=== PATIENT | male | born 1950 | race Caucasian/White ===

== ENCOUNTER → 2019-04-09 08:46 | Outpatient (CLI) | payer MEDICARE, SELFPAY | PROVIDERS: Family Provider Family Medicine; PCP Family Medicine; Referring Provider Family Medicine; Visit Provider Family Medicine | DX: R00.1 Bradycardia, unspecified (principal) | CPT/HCPCS: 93225; 93226 ==

== ENCOUNTER 2019-04-27 14:59 | Observation (INO) | payer MEDICARE, SELFPAY ==
[2019-04-27 15:00] VITALS: BP 133/92; PULSE 61; RESP 20; TEMP 36.9; O2SAT 97; BMI 32.4
--- NOTE | 2019-04-27 15:40 | EKG12_ITS ---
Test Reason : CP ADMISSION Blood Pressure : / mmHG Vent. Rate : 048 BPM Atrial Rate : 048 BPM P-R Int : 172 ms QRS Dur : 090 ms QT Int : 496 ms P-R-T Axes : 060 -05 011 degrees QTc Int : 443 ms Sinus bradycardia Confirmed by FARZANA BRAXTON, JUSTIN ([id number]), business editor OCHOA DONNELLY ([id number] on 05/03/2019 1:21:53 PM Referred By: YULIYA Confirmed By:JUSTIN YANES MD
--- NOTE | 2019-04-27 15:42 | CT_ITS ---
STUDY: CTA NECK WITH CONTRAST REASON FOR EXAM: Male, 69 years old. Chest pain and dizziness RADIATION DOSAGE (If Supplied By Facility): CTDIvol = ( ) mGy, DLP = ( ) mGycm TECHNIQUE: CT angiography with multi-detector data acquisition was performed from the aortic arch to the skull base following intravenous administration of 100ml IV Isovue 300. MIP images were reconstructed from the axial data set. Post-processing of the angiographic images was performed, with multiplanar reformation and 3D reconstruction. Individualized dose optimization techniques were used for this CT. COMPARISON: None. FINDINGS: The aorta has a bovine branching pattern. Common trunk, right brachiocephalic, right subclavian, right common carotid, left common carotid and left subclavian arteries are patent bilaterally. Vertebral arteries arise bilaterally from the subclavian arteries, are codominant and patent in the cervical intraosseous segments. Bilateral internal and external carotid arteries are patent. There is mild burden of mixed, predominantly lipid rich, atherosclerosis is seen in the common carotids, internal carotids and aortic arch. Airway is patent. Soft tissues are unremarkable. Craniocervical junction and cervical spine are intact and aligned. There is moderate spondylotic thecal sac compression at C6-C7. There are upper mediastinal and pulmonary findings, refer to dedicated chest imaging report. CT/CTA Neck W/WO Contrast IMPRESSION: 1. Patent cervical arteries. 2. Mild burden of atherosclerosis. Electronically Signed: Lashell Venegas, at 17:38 EDT Tel , Service support ,
--- NOTE | 2019-04-27 15:42 | CT_ITS ---
STUDY: CTA OF THE BRAIN REASON FOR EXAM: Male, 69 years old. Chest pain dizziness RADIATION DOSAGE (If Supplied By Facility): CTDIvol = ( 26.11 ) mGy, DLP = ( 745.55 ) mGycm TECHNIQUE: CT angiography was performed with a multi-detector CT scanner. Data acquisition was obtained from the skull base through the vertex following intravenous administration of 100ml IV Isovue 300. MIP images were reconstructed from the axial data set. Post-processing of the angiographic images was performed, with multiplanar reformation and 3D reconstruction. Individualized dose optimization techniques were used for this CT. COMPARISON: None. FINDINGS: Brain parenchyma is normal. There is no acute intracranial hemorrhage, extra parenchymal fluid collections, hydrocephalus, focal lesions or herniation. The skull is intact. The angiographic part of the examination is mildly technically limited. There is extensive opacification of the venous structures with resulting overlaying of venous vessels on arteries. This makes detection of small aneurysms not possible. Bilateral base of skull carotids, bifurcations, anterior and middle cerebral arteries and proximal branches are patent. There are likely small/miniscule bilateral posterior communicating arteries which are not well seen. Posterior cerebral arteries, basilar artery and intradural vertebral arteries are patent. Dual venous sinuses are patent. Right transverse sinus is dominant, left is hypoplastic. Right jugular is dominant. CT/CTA Head W/WO Contrast IMPRESSION: 1. Normal CT head. 2. Patent [place] of [place] and proximal branches. 3. Patent dural venous sinuses. Electronically Signed: Lashell Venegas, at 17:19 EDT Tel , Service support ,
--- NOTE | 2019-04-27 15:42 | CT_ITS ---
STUDY: CTA CHEST REASON FOR EXAM: Male, 69 years old. Chest pain and dizziness RADIATION DOSAGE (If Supplied By Facility): CTDIvol = ( 18.03 ) mGy, DLP = ( 713.24 ) mGycm TECHNIQUE: The examination was performed with the intravenous administration of 100ml IV Isovue 300. Post-processing of the angiographic images was performed, with multiplanar reformation and 3D reconstruction. Individualized dose optimization techniques were used for this CT. COMPARISON: None. FINDINGS: There is no acute or chronic pulmonary embolism. Pulmonary artery is normal. Aorta is normal in caliber with mild burden of atherosclerotic plaque predominantly in the arch and descending portions. Cardiac chambers are normal in size and shape. Pericardium is normal. There is mild coronary artery disease. Central airways are patent. Pleural surfaces are intact. There is peripheral basilar predominant mixed pattern of pulmonary disease. There is left greater than right dense groundglass opacity bordering on consolidation with small alveolar grams, likely early honeycombing. There are thickened interstitial intralobular and interlobular markings peripherally. There is minor diffuse microcystic change. There is ill-defined mosaic attenuation of the lungs diffusely. However, this was not performed as a dedicated pulmonary protocol CT. There is an increased number of mediastinal and hilar lymph nodes most of which measure less than 1 cm. Limited upper abdominal images demonstrate left renal atrophy. Osseous structures are intact. CT/CTA Chest W/WO Contrast IMPRESSION: 1. No acute or chronic pulmonary embolism. 2. No acute thoracic vascular disease. 3. Mixed pulmonary pattern disease. The contribution of basal atelectasis is unclear as well as technical limitations. Recommend performing a dedicated pulmonary protocol high resolution CT with prone inspiratory and expiratory maneuvers after resolution of acute illness to remote possibility of superimposed confusing picture. Current differential diagnosis is early usual interstitial pneumonitis versus sarcoidosis. However, the same appearance can be simulated by a combination of atelectasis and mild pulmonary edema and therefore repeat scanning as described above after pulmonary consultation is recommended. Electronically Signed: Lashell Venegas, at 17:31 EDT Tel , Service support ,
--- NOTE | 2019-04-27 15:46 | ED.VISSUMM ---
- ER Visit Summary Date of Service: 04/27/19 Chief Complaint: Pain History of Present Illness: The patient is a 69 M with multiple symptoms that have been ongoing for weeks. He has had some work-up by Dr. Flores. He was recently referred to follow-up with cardiology for chest pain, pulmonology for abnormal findings on his chest CT, GI for dilated bile ducts and abdominal pain. He has had an MRI for dizziness which was unremarkable. He continues to have ongoing symptoms, and they are getting worse. He feels okay when he wakes up in the morning, but after about 2 hours he is extremely fatigued, short of breath, dizzy. Physical Examination: Afebrile and vital signs unremarkable. Head and neck atraumatic. Heart regular. Lungs clear. Abdomen soft. Extremities nontender with good strength and sensation. No edema. Skin appears normal. Test Results: EKG showed sinus rhythm at a rate of 62. Nonspecific ST and T wave changes. Laboratory studies and imaging are pending. Emergency Department Course and Treatment: I reviewed the patient's old records. He had an MRI of his brain on March 23 that showed age-appropriate changes. He had a CT of his chest with IV contrast that showed reticular opacities likely representing fibrotic changes as well as nodular opacities and mild enlargement of his mediastinal and right hilar lymph nodes. Patient had a CT of his abdomen with IV contrast that showed prominent intra-and extrahepatic biliary ducts without pancreatic mass or pancreatic ductal dilation or choledocholithiasis. I felt that he could benefit from imaging with CTA and will check imaging of his head, neck, and chest. Will repeat labs including troponin, CMP, CBC, lipase. Patient has not had any recent stress testing or evaluation of his heart. No history of coronary disease. He does take aspirin daily. No other blood thinners. Remote history of testicular cancer, but denies current malignancy. EKG showed sinus rhythm at a rate of 62. Nonspecific ST and T wave changes. CBC, CMP, lipase, troponin unremarkable. CTA head, neck, chest unremarkable except for previously noted pulmonary changes. Please see separate dictation. Patient has chest pain with shortness of breath and dizziness. He has a history of hypertension and hyperlipidemia. No recent cardiac evaluation. I contacted the hospitalist to admit for further care. Treatment Plan: As above Disposition: Admission Impression: 1. Chest pain 2. Dizziness This note was generated with [employer]etD[employer] software. It may contain incorrect words, spelling, and punctuation that were not noted in review of the chart prior to signing ED Disposition - Plan for ED Patient: Referrals: Archie Flores MD [Primary Care Provider] -
[2019-04-27] MEDS: 0.9% Normal Saline 1,000 ML 1000 ML IV (15:51)
[2019-04-27 15:55] LABS: Absolute Lymphocyte Count 2.22 X10^3/ul (0.83-4.51); Absolute Neutrophil Count 3.9 X10^3/uL (2.0-7.7); Basophil# 0.02 X10^3/uL; Basophil% 0.3 % (0-1); Eosinophil# 0.45 X10^3/uL; Eosinophils% 6.3 % (0-5); Hematocrit 42.1 % (40-54); Hemoglobin 13.9 g/dl (13.0-16.5); Lymphocyte # 2.22 X10^3/ul (4.0); Lymphocyte % 31.2 % (19-41); Mean Corpuscular Hgb 33.3 pg (27.0-32.0); Mean Corpuscular Volume 100.7 fL (80-94); Mean Platelet Vol. 11.1 fl (6.2-12.0); Monocyte# 0.56 X10^3/uL; Monocyte% 7.9 % (0-10); Neutrophil # 3.85 X10^3/uL (2.7-7.7); Neutrophil % 54.2 % (47-70); POSITIVE COUNT NO; POSITIVE DIFFERENTIAL NO; POSITIVE MORPHOLOGY NO; Platelet Count 187 K/mm3 (150-450); RBC Distribution Width CV 15.2 % (11.6-14.6); RBC Distribution Width SD 56.1 fl (35.1-43.9); Red Blood Count 4.18 M/mm3 (4.6-6.2); White Blood Count 7.1 K/mm3 (4.4-11.0)
[2019-04-27 16:00] VITALS: BP 139/76; PULSE 51; RESP 16; O2SAT 97
[2019-04-27 16:29] LABS: ALB/GLOB Ratio 0.9 RATIO (0.9-2.4); AST(SGOT) 16 U/L (15-37); Alanine Aminotransfer ALT/SGPT 19 U/L (16-61); Albumin, Serum 3.4 g/dL (3.2-5.0); Alkaline Phosphatase 121 U/L (45-117); Anion Gap 9 (5-15); BUN 17 mg/dL (7-18); BUN/Creat Ratio 10.4 RATIO (10-20); Calcium,Total 8.8 mg/dL (8.5-10.1); Chloride 103 mmol/L (98-107); Creatinine, Serum 1.63 mg/dL (0.70-1.30); EST Glomerular Filtration Rate 45 mL/min (>60); Est Glom Filt Rate - Afr Amer 55 mL/min (>60); Estimated Creatinine Clearance 42.55 ml/min; Globulin 3.9 g/dL (2.2-4.2); Glucose 157 mg/dL (74-106); Lipase 63 U/L (73-393); Potassium 3.9 mmol/L (3.5-5.1); Protein, Total 7.3 g/dL (6.4-8.2); Sodium Level 138 mmol/L (136-145)
--- NOTE | 2019-04-27 18:01 | HP.PCM_ITS ---
History of Present Illness Date of Admission: 04/27/19 Chief Complaint: Chest pain The patient is a 69 year old M with an extensive past medical history as listed. He was admitted through the ED on 04/27/2019 with a complaint of left-sided chest pain which have been going on for a few weeks but states that become more severe. He also complained of feeling tired and more lethargic and also voice loss which is being followed up by his primary care doctor. Concerning the chest pain, it was left-sided and said it was pressure-like and only relieved by nitro. He denied any fever or chills, palpitations or dizziness, diarrhea or vomiting. Review of systems is otherwise negative. He was recently started on Remeron by his PCP on account of weight loss and his states is eaten as improved and is also started to gain a bit of weight. He is never had any heart problems in the past. On admission vitals were significant for bradycardia which is chronic. Initial troponin was negative and EKG showed no acute ST changes and only showed bradycardia. He has been admitted to be managed for chest pain rule out ACS. [] Past Medical History Past Medical History (Chronic Problems): Chronic Problems (Last Updated 04/23/19 @ 15:27 by Brittnee Le) Overweight (BMI 25.0-29.9) (Chronic) CKD (chronic kidney disease) (Chronic) Chronic abdominal pain (Chronic) GERD (gastroesophageal reflux disease) (Chronic) Aneurysm of infrarenal abdominal aorta (Chronic) Testicular cancer (Chronic) Medical History: Medical History (Last Updated 04/23/19 @ 15:27 by Brittnee Le) Overweight (BMI 25.0-29.9) (Chronic) E66.3 CKD (chronic kidney disease) (Chronic) N18.9 Chronic abdominal pain (Chronic) R10.9, G89.29 GERD (gastroesophageal reflux disease) (Chronic) K21.9 Aneurysm of infrarenal abdominal aorta (Chronic) I71.4 Testicular cancer (Chronic) C62.90 Palpitations R00.2 Depressive disorder F32.9 Essential hypertension I10 Hiatal hernia K44.9 Trigeminal neuralgia G50.0 Acute kidney injury (Resolved) N17.9 Bradycardia (Resolved) R00.1 Cephalgia (Resolved) R51 Myocardial infarct, old I25.2 Symptomatic bradycardia (Resolved) R00.1 Allergies No Known Allergies Allergy (Verified 04/27/19 14:59) Home Medications: Ambulatory Orders Medication Instructions Recorded fluoxetine 20 mg capsule 20 mg PO BID cap 04/23/19 gabapentin 400 mg capsule 400 mg PO TID cap 04/23/19 melatonin 10 mg capsule 10 mg PO HS 04/23/19 nitroglycerin 0.4 mg sublingual 0.4 mg SUBLINGUAL Q5-15M PRN 04/23/19 tablet rivastigmine 4.6 mg/24 hour 1 patch TRANSDERMAL DAILY 04/23/19 transdermal patch Atorvastatin Calcium [Lipitor] 10 mg PO DAILY 04/27/19 Doxycycline Hyclate 100 mg PO BID 04/27/19 Lisinopril 20 mg PO DAILY 04/27/19 Mirtazapine 15 mg PO QHS 04/27/19 Surgical History: Surgical History (Last Updated 04/23/19 @ 15:34 by Brittnee Le) History of arthroscopic knee surgery Z98.890 History of corneal transplant 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 Psychiatric History: Anxiety, Depression Smoking Status: Current every day smoker Tobacco Use: Cigars Alcohol: Occasional Drugs: None - *Family History Maternal Family History: Family History (Last Updated 04/23/19 @ 15:35 by Brittnee Le) Father Cancer AAA (abdominal aortic aneurysm) Grandfather AAA (abdominal aortic aneurysm) Uncle AAA (abdominal aortic aneurysm) History Items: No pertinent history Paternal Family History: Family History (Last Updated 04/23/19 @ 15:35 by Brittnee Le) Father Cancer AAA (abdominal aortic aneurysm) Grandfather AAA (abdominal aortic aneurysm) Uncle AAA (abdominal aortic aneurysm) History Items: No pertinent history Review of Systems Constitutional: Reports: Weight Change - weight loss. Denies: Chills, Fever Eyes: Denies: Blurred vision HEENT: Denies: Head Aches, Sinus Congestion, Sinus Drainage Cardiovascular: Reports: Chest Pain. Denies: Chest Pressure, Chest Tightness, Edema, Heaviness, Light Headedness, Orthopnea, Palpitations, Paroxysmal Noc. D yspnea, Syncope Respiratory: Denies: Cough, Shortness of Breath, Shortness of breath at rest, Shortness of breath upon exertion, Sputum production Gastrointestinal: Denies: Abdominal Pain, Nausea, Vomiting Genitourinary: Denies: Dysuria Musculoskeletal: Denies: Joint Pain, Joint Tenderness Skin: Denies: Rash, Wounds Neurological: Denies: Numbness, Tingling, Focal weakness Psychiatric: Denies: Anxiety, Depression, Homicidal Ideations, Suicidal Ideations Hematologic/ Lymphatic: Denies: Easy Bruising, Easy Bleeding VTE Information - Inpt Only VTE Present on Admission: No VTE Pharm Prophylaxis ordered?: Yes - Physical Exam General: Alert, Oriented x3, Cooperative, No apparent distress, Lethargic HEENT: Atraumatic, PERRLA, EOMI, Normocephalic Neck: Supple, No JVD, Negative Carotid Bruits Lungs: Clear to auscultation, Normal air movement, No rhonchi, No wheeze, No rales Cardiovascular: Regular Rhythm, Normal S1, Normal S2, No murmurs, Bradycardic Abdomen: Bowel Sounds Present, Soft, Non Tender, Non-Distended, No Hepato- splenomegaly Extremities: No clubbing, No cyanosis, No edema, Capillary Refill Less than 3 Seconds Skin: No rashes, No breakdown Musculoskeletal: No Tenderness to Palpation of Joints or Extremities Lymphatic: No Cervical, Supraclavicular, or Inguinal Adenopathy Neurological: Cranial nerves II-XII grossly intact, Neuro grossly intact, Motor Exam 5/5 strength throughout Psych/Mental Status: Normal Affect, Appropriate, Alert and oriented to time, place, person, mood and affect Vital Signs Temp Pulse Resp BP Pulse Ox 98.4 F 51 L 16 139/76 H 97 04/27/19 15:00 04/27/19 16:00 04/27/19 16:00 04/27/19 16:00 04/27/19 16:00 Oxygen Delivery Method Room Air Weight: 213 lb 2.992 oz Body Mass Index (BMI) 32.4 Laboratory Tests Past 24 Hrs 04/27/19 04/27/19 15:00 15:00 WBC 7.1 RBC 4.18 L Hgb 13.9 Hct 42.1 MCV 100.7 H MCH 33.3 H MCHC 33.0 RDW 15.2 H RDW Differential 56.1 H Plt Count 187 MPV 11.1 Immature Gran % (Auto) 0.100 Neut % (Auto) 54.2 Lymph % (Auto) 31.2 [place] % (Auto) 7.9 Eos % (Auto) 6.3 H Baso % (Auto) 0.3 Absolute Neuts (auto) 3.9 Absolute Lymphs (auto) 2.22 Total Counted Not Reportable Sodium 138 Potassium 3.9 Chloride 103 Carbon Dioxide 26.0 Anion Gap 9 BUN 17 Creatinine 1.63 H Estim Creat Clear Calc 42.55 Est GFR (MDRD) Af Amer 55 L Est GFR (MDRD) Non-Af 45 L BUN/Creatinine Ratio 10.4 Glucose 157 H Calcium 8.8 Total Bilirubin 0.50 AST 16 ALT 19 Alkaline Phosphatase 121 H Troponin I < 0.015 Total Protein 7.3 Albumin 3.4 Globulin 3.9 Albumin/Globulin Ratio 0.9 Lipase 63 L Diagnostic Data Chest CTA 04/27/19 15:42 IMPRESSION: 1. No acute or chronic pulmonary embolism. 2. No acute thoracic vascular disease. 3. Mixed pulmonary pattern disease. The contribution of basal atelectasis is unclear as well as technical limitations. Recommend performing a dedicated pulmonary protocol high resolution CT with prone inspiratory and expiratory maneuvers after resolution of acute illness to remote possibility of superimposed confusing picture. Current differential diagnosis is early usual interstitial pneumonitis versus sarcoidosis. However, the same appearance can be simulated by a combination of atelectasis and mild pulmonary edema and therefore repeat scanning as described above after pulmonary consultation is recommended. Electronically Signed: Lashell Venegas, at 17:31 EDT Tel , Service support , Head CTA 04/27/19 15:[address]: [address] head. 2. Patent [place] of [place] and proximal branches. 3. Patent dural venous sinuses. Electronically Signed: Lashell Venegas, at 17:19 EDT Tel , Service support , Neck CTA 04/27/19 15:42 IMPRESSION: 1. Patent cervical arteries. 2. Mild burden of atherosclerosis. Electronically Signed: Lashell Venegas, at 17:38 EDT Tel , Service support , Assessment/Plan All Active Problems (Last Updated 04/23/19 @ 15:27 by Brittnee Le) Acute kidney injury (Resolved) Bradycardia (Resolved) Cephalgia (Resolved) Symptomatic bradycardia (Resolved) [age]-year-old male admitted with complaint of chest pain as well as lethargy and weight loss. 1. Chest pain to rule out ACS * Admit to PCU with telemetry * Initial troponin was negative. Cycle troponin. * Sublingual nitroglycerin as needed. * Check lipid panel. * If troponins remain negative, till stress test tomorrow. * CT of the chest was negative for PE and head and neck CT were also unremarkable. * 2. CKD 3: * C r is 1.63. Baseline creatinine from 2013 and 2017 is around 1.5. * Has been down as low as 1.3 and 1.19. * Will monitor closely. * Hydrate gently with IV fluids. * 3. Bradycardia: Asymptomatic. Heart rate fluctuates between the high 40s and 50s. Not on any beta-antony. Will monitor. 4. Hypertension: Controlled. On lisinopril. 5. Hyperlipidemia: On statin. 6. Depression: On fluoxetine 9. Also started recently on mirtazapine on account of anorexia. 7. Dementia: On overstatement. DVT prophylaxis: Lovenox. Code Visit OBSV E&M: 65069 Initial observation care L3
[2019-04-27 18:10] VITALS: BMI 32.4
--- NOTE | 2019-04-27 18:48 | EKG12_ITS ---
Test Reason : CP Blood Pressure : / mmHG Vent. Rate : 062 BPM Atrial Rate : 062 BPM P-R Int : 162 ms QRS Dur : 088 ms QT Int : 436 ms P-R-T Axes : 034 -20 -21 degrees QTc Int : 442 ms Normal sinus rhythm Minimal voltage criteria for LVH, may be normal variant Nonspecific ST and T wave abnormality Abnormal ECG Confirmed by FARZANA BRAXTON, JUSTIN ([id number]), editor at large OCHOA DONNELLY ([id number]) on 05/01/2019 3:24:49 PM Referred By: BUTCH/GABRIEL Confirmed By:JUSTIN YANES MD
[2019-04-27 18:58] VITALS: BP 143/77; PULSE 47; RESP 18; TEMP 36.5; O2SAT 97
[2019-04-27 19:00] VITALS: PULSE 56
[2019-04-27 19:06] VITALS: BMI 25.4
[2019-04-27] MEDS: 0.9% Normal Saline 1,000 ML 75 ML IV (19:35)
[2019-04-27] MEDS: Mirtazapine 15 MG Tablet PO (21:32)
[2019-04-27] MEDS: Gabapentin 400 MG Capsule PO (21:32)
[2019-04-27] MEDS: FLUoxetine 20 MG Capsule PO (21:32)
[2019-04-27] MEDS: MELATONIN 10 MG TABLET PO (21:32)
[2019-04-27 23:00] VITALS: PULSE 56
[2019-04-28] VITALS (7 sets, daily range): BP systolic 120–131; BP diastolic 63–74; PULSE 49–58; RESP 15–18; TEMP 36.5–37; O2SAT 95–96
[2019-04-28] MEDS: Gabapentin 400 MG Capsule PO ×2 (05:23→12:18)
[2019-04-28] MEDS: Lisinopril 20 MG Tablet PO (05:24)
--- NOTE | 2019-04-28 05:55 | EKG12_ITS ---
Test Reason : AM EKG Blood Pressure : / mmHG Vent. Rate : 055 BPM Atrial Rate : 055 BPM P-R Int : 172 ms QRS Dur : 090 ms QT Int : 472 ms P-R-T Axes : 050 -08 010 degrees QTc Int : 451 ms Sinus bradycardia with sinus arrhythmia Otherwise normal ECG Confirmed by FARZANA BRAXTON, JUSTIN ([id number]), makeup editor OCHOA DONNELLY ([id number]) on 05/03/2019 1:14:39 PM Referred By: YULIYA Confirmed By:JUSTIN YANES MD
[2019-04-28 06:31] LABS: Absolute Lymphocyte Count 1.87 X10^3/ul (0.83-4.51); Absolute Neutrophil Count 5.6 X10^3/uL (2.0-7.7); Basophil# 0.02 X10^3/uL; Basophil% 0.2 % (0-1); Eosinophils% 5.8 % (0-5); Hematocrit 40.6 % (40-54); Hemoglobin 13.1 g/dl (13.0-16.5); Lymphocyte # 1.87 X10^3/ul (4.0); Lymphocyte % 21.7 % (19-41); Mean Corp Hgb Conc 32.3 g/gl (32-36); Mean Corpuscular Hgb 32.5 pg (27.0-32.0); Mean Corpuscular Volume 100.7 fL (80-94); Mean Platelet Vol. 11.4 fl (6.2-12.0); Monocyte# 0.64 X10^3/uL; Monocyte% 7.4 % (0-10); Neutrophil # 5.57 X10^3/uL (2.7-7.7); Neutrophil % 64.7 % (47-70); Platelet Count 168 K/mm3 (150-450); RBC Distribution Width CV 15.4 % (11.6-14.6); RBC Distribution Width SD 56.4 fl (35.1-43.9); Red Blood Count 4.03 M/mm3 (4.6-6.2); White Blood Count 8.6 K/mm3 (4.4-11.0)
[2019-04-28 06:35] LABS: POSITIVE COUNT NO; POSITIVE DIFFERENTIAL NO; POSITIVE MORPHOLOGY NO; Prothrombin Time (Protime)PT. 13.4 SECONDS (11.7-14.9)
[2019-04-28 06:36] LABS: Partial Thromboplast Time 31.3 Seconds (24.1-36.2)
[2019-04-28 06:57] LABS: Anion Gap 6 (5-15); BUN 17 mg/dL (7-18); BUN/Creat Ratio 13.7 RATIO (10-20); Calcium,Total 8.3 mg/dL (8.5-10.1); Chloride 108 mmol/L (98-107); Creatinine, Serum 1.24 mg/dL (0.70-1.30); EST Glomerular Filtration Rate 62 mL/min (>60); Est Glom Filt Rate - Afr Amer 75 mL/min (>60); Estimated Creatinine Clearance 55.93 ml/min; Glucose 96 mg/dL (74-106); Potassium 4.7 mmol/L (3.5-5.1); Sodium Level 141 mmol/L (136-145)
[2019-04-28] MEDS: Enoxaparin 40 MG/0.4 ML Syringe SC (12:17)
[2019-04-28] MEDS: FLUoxetine 20 MG Capsule PO (12:18)
--- NOTE | 2019-04-28 12:37 | STRESSREP ---
Stress Test Report Date: 04-28-19 Procedure: Pharmacologic stress nuclear imaging study Indications: Chest pain Consent: Per the patient Procedure: The patient underwent pharmacologic (Regadenoson) evaluation with a peak heart rate of 77 beats per minute (50 %predicted maximal heart rate) and a peak blood pressure of 124/68 mmHg. The baseline ECG demonstrated sinus bradycardia. The peak pharmacologic ECG demonstrated no obvious ECG changes. There were no cardiac dysrhythmias pretest, during pharmacologic infusion, or recovery. There was no complaint of chest discomfort during pharmacologic infusion or recovery. The examination was discontinued secondary to completion of protocol. Impression: 1. Pharmacologic (Regadenoson) evaluation 2. Peak pharmacologic ECG with no obvious ECG changes. 3. There were no cardiac dysrhythmias pretest, during pharmacologic infusion, or recovery. 4. Nuclear images pending Myocardial perfusion imaging study: Technique: The patient was injected with 11.9 millicuries of technetium 99m Cardiolite and subsequently rest SPECT Cardiolite nuclear imaging was obtained in the horizontal long, vertical long, and short axis views. The patient underwent pharmacologic (Regadenoson) evaluation with a peak heart rate of 77 beats per minute (50 % percent predicted maximal heart rate) and a peak blood pressure of 124/68 mmHg. The patient was injected with 35.7 millicuries of technetium 99m Cardiolite and subsequently stress SPECT Cardiolite nuclear imaging was obtained in the horizontal long, vertical long, and short axis views. A gated Cardiolite study at peak stress was obtained. Interpretation: Rest and stress SPECT Cardiolite nuclear imaging status post realignment, normalization, and attenuation correction demonstrate a small area of subtle diminished tracer uptake near the apical segments without significant change between rest and stress. There is end systolic thickening and brightening. The gated Cardiolite study demonstrates myocardial thickening and inward wall motion. The reported LVEF is 60 %. Impression: 1. Rest and stress SPECT current nuclear imaging demonstrate myocardial perfusion changes appearing compatible with the effects of physiologic apical thinning with no myocardial perfusion changes considered diagnostic for associated stress-induced myocardial ischemia. 2. The gated Cardiolite study reports an LVEF of 60 %. This note was generated with [employer] software. It may contain incorrect words, spelling, and punctuation that were not noted in checking the note before signing.
--- NOTE | 2019-04-28 13:08 | DCINST_ITS ---
You will use the following diet at home:: Regular Discharge Activity: Return to Normal Activity Allergies/Adverse Reactions: Allergies No Known Allergies Allergy (Verified 04/27/19 14:59) Medications to take at Discharge fluoxetine 20 mg capsule 20 mg PO BID cap 04/23/19 gabapentin 400 mg capsule 400 mg PO TID cap 04/23/19 melatonin 10 mg capsule 10 mg PO HS 04/23/19 nitroglycerin 0.4 mg sublingual tablet 0.4 mg SUBLINGUAL Q5-15M PRN 04/23/19 rivastigmine 4.6 mg/24 hour transdermal patch 1 patch TRANSDERMAL DAILY 04/23/19 Atorvastatin Calcium [Lipitor] 10 mg PO DAILY 04/27/19 Lisinopril 20 mg PO DAILY 04/27/19 Mirtazapine 15 mg PO QHS 04/27/19 Primary Care Physician: Archie Flores MD [Primary Care Provider] - Please follow up with your Primary Care Physician in: in 5-7 days Test Results: Test results from this visit will be discussed in further detail at your follow- up appointment, if applicable. Proposed Discharge Date: 04/28/19
--- NOTE | 2019-04-28 13:14 | DS.PCM_ITS ---
Discharge Date and Diagnosis - Problem List Patient Problems: Active and Suspected Problems (Last Updated 04/23/19 @ 15:27 by Brittnee Nolt) Chest pain (Acute) Date of Admission: 04/27/19 Date of Discharge: 04/28/19 - Primary Discharge Diagnosis Active and Suspected Problems (Last Updated 04/23/19 @ 15:27 by Brittnee Nolt) Chest pain (Acute) - Secondary Discharge Diagnosis Chronic Problems (Last Updated 04/23/19 @ 15:27 by Brittnee Nolt) Overweight (BMI 25.0-29.9) (Chronic) CKD (chronic kidney disease) (Chronic) Chronic abdominal pain (Chronic) GERD (gastroesophageal reflux disease) (Chronic) Aneurysm of infrarenal abdominal aorta (Chronic) Testicular cancer (Chronic) Hospital Course and Treatment Imaging Results: Clinical Impression(s) from Imaging Studies Chest CTA 04/27/19 15:42 IMPRESSION: 1. No acute or chronic pulmonary embolism. 2. No acute thoracic vascular disease. 3. Mixed pulmonary pattern disease. The contribution of basal atelectasis is unclear as well as technical limitations. Recommend performing a dedicated pulmonary protocol high resolution CT with prone inspiratory and expiratory maneuvers after resolution of acute illness to remote possibility of superimposed confusing picture. Current differential diagnosis is early usual interstitial pneumonitis versus sarcoidosis. However, the same appearance can be simulated by a combination of atelectasis and mild pulmonary edema and therefore repeat scanning as described above after pulmonary consultation is recommended. Electronically Signed: Lashell Venegas, at 17:31 EDT Tel , Service support , Head CTA 04/27/19 15:[address]: [address] head. 2. Patent tolowa dee-ni' of [place] and proximal branches. 3. Patent dural venous sinuses. Electronically Signed: Lashell Venegas, at 17:19 EDT Tel , Service support , Neck CTA 04/27/19 15:42 IMPRESSION: 1. Patent cervical arteries. 2. Mild burden of atherosclerosis. Electronically Signed: Lashell Venegas, at 17:38 EDT Tel , Service support , Operations: None Summary of Care Provided: The patient is a 69 year old M admitted with chest pain 1. Chest pain patient was placed on a monitored bed did rule out [place] with serial cardiac enzymes. Also underwent CT of the chest which was negative for PE subsequent underwent a nuclear stress test which is negative for stress-induced ischemia Acute renal failure secondary to dehydration from decreased oral intake managed with IV fluid kidney function return to normal limits 3. Bradycardia patient remains symptomatic. Did check patient's TSH prior to being discharged. TSH was within normal limits. 4. Hypertension-blood pressure controlled, home medications continued with dose adjustment as needed 5. Dyslipidemia-patient is on statin therapy, continued at home dose 6. Depression patient is on SSRI Patient Problems: Active and Suspected Problems (Last Updated 04/23/19 @ 15:27 by Brittnee Le) Chest pain (Acute) - Physical Exam General: Alert HEENT: Atraumatic Neck: Supple Neurological: Neuro grossly intact Psych/Mental Status: Normal Affect Vital Signs Temp Pulse Resp BP Pulse Ox 98.1 F 50 L 15 123/74 H 95 04/28/19 12:14 04/28/19 12:14 04/28/19 12:14 04/28/19 12:14 04/28/19 12:14 Oxygen Flow Rate (L/min) 2 Oxygen Delivery Method Room Air Weight: 76 kg Body Mass Index (BMI) 25.4 Intake and Output for Last 24 Hours 04/26/19 04/27/19 04/28/19 23:59 23:59 23:59 Intake Total 1532 / 1532 Balance 1532 / 1532 Laboratory Tests Past 24 Hrs 04/27/19 04/27/19 04/27/19 15:00 15:00 19:35 WBC 7.1 RBC 4.18 L Hgb 13.9 Hct 42.1 MCV 100.7 H MCH 33.3 H MCHC 33.0 RDW 15.2 H RDW Differential 56.1 H Plt Count 187 MPV 11.1 Immature Gran % (Auto) 0.100 Neut % (Auto) 54.2 Lymph % (Auto) 31.2 [place] % (Auto) 7.9 Eos % (Auto) 6.3 H Baso % (Auto) 0.3 Absolute Neuts (auto) 3.9 Absolute Lymphs (auto) 2.22 Total Counted Not Reportable PT INR APTT Sodium 138 Potassium 3.9 Chloride 103 Carbon Dioxide 26.0 Anion Gap 9 BUN 17 Creatinine 1.63 H Estim Creat Clear Calc 42.55 Est GFR (MDRD) Af Amer 55 L Est GFR (MDRD) Non-Af 45 L BUN/Creatinine Ratio 10.4 Glucose 157 H Calcium 8.8 Total Bilirubin 0.50 AST 16 ALT 19 Alkaline Phosphatase 121 H Troponin I < 0.015 < 0.015 Total Protein 7.3 Albumin 3.4 Globulin 3.9 Albumin/Globulin Ratio 0.9 Lipase 63 L 04/28/19 04/28/19 04/28/19 02:09 05:25 05:25 WBC 8.6 RBC 4.03 L Hgb 13.1 Hct 40.6 MCV 100.7 H MCH 32.5 H MCHC 32.3 RDW 15.4 H RDW Differential 56.4 H Plt Count 168 MPV 11.4 Immature Gran % (Auto) 0.200 Neut % (Auto) 64.7 Lymph % (Auto) 21.7 Carroll % (Auto) 7.4 Eos % (Auto) 5.8 H Baso % (Auto) 0.2 Absolute Neuts (auto) 5.6 Absolute Lymphs (auto) 1.87 Total Counted Not Reportable PT INR APTT Sodium 141 Potassium 4.7 Chloride 108 H Carbon Dioxide 27.0 Anion Gap 6 BUN 17 Creatinine 1.24 Estim Creat Clear Calc 55.93 Est GFR (MDRD) Af Amer 75 Est GFR (MDRD) Non-Af 62 BUN/Creatinine Ratio 13.7 Glucose 96 Calcium 8.3 L Total Bilirubin AST ALT Alkaline Phosphatase Troponin I < 0.015 Total Protein Albumin Globulin Albumin/Globulin Ratio Lipase 04/28/19 05:25 WBC RBC Hgb Hct MCV MCH MCHC RDW RDW Differential Plt Count MPV Immature Gran % (Auto) Neut % (Auto) Lymph % (Auto) Carroll % (Auto) Eos % (Auto) Baso % (Auto) Absolute Neuts (auto) Absolute Lymphs (auto) Total Counted PT 13.4 INR 1.0 APTT 31.3 Sodium Potassium Chloride Carbon Dioxide Anion Gap BUN Creatinine Estim Creat Clear Calc Est GFR (MDRD) Af Amer Est GFR (MDRD) Non-Af BUN/Creatinine Ratio Glucose Calcium Total Bilirubin AST ALT Alkaline Phosphatase Troponin I Total Protein Albumin Globulin Albumin/Globulin Ratio Lipase Discharge Diet: No Restrictions Discharge Activity: Return to Normal Activity Home Medications: Medications to take at Discharge fluoxetine 20 mg capsule 20 mg PO BID cap 04/23/19 gabapentin 400 mg capsule 400 mg PO TID cap 04/23/19 melatonin 10 mg capsule 10 mg PO HS 04/23/19 nitroglycerin 0.4 mg sublingual tablet 0.4 mg SUBLINGUAL Q5-15M PRN 04/23/19 rivastigmine 4.6 mg/24 hour transdermal patch 1 patch TRANSDERMAL DAILY 04/23/19 Atorvastatin Calcium [Lipitor] 10 mg PO DAILY 04/27/19 Lisinopril 20 mg PO DAILY 04/27/19 Mirtazapine 15 mg PO QHS 04/27/19 Primary Care Physician: Archie Flores MD [Primary Care Provider] - Please follow up with your Primary Care Physician in: in 5-7 days Disposition: Home Minutes spent on discharge:: 35 Patient Condition:: Stable Medical Necessity - Tobacco Use Smoking Status: Current every day smoker Tobacco Use: Cigars Meaningful Use Info Meaningful Use Diagnoses (Choose all that apply): None applicable Code Visit OBSV E&M: 74740 Observation care discharge
[2019-04-28 14:20] LABS: Thyroid Stim Hormone (TSH) 2.68 uIU/mL (0.358-3.74)
== END 2019-04-28 15:20 | disposition home or self-care (01) ==
LOC: ED 18:08 → PCU 18:17
PROVIDERS: Admitting Provider Student in an Organized Health Care Education/Training Program; Emergency Provider Emergency Medicine; Family Provider Family Medicine; PCP Family Medicine; Visit Provider Internal Medicine
DX: R07.89 Other chest pain (principal); K21.9 Gastro-esophageal reflux disease without esophagitis; R42 Dizziness and giddiness; G89.29 Other chronic pain; I12.9 Hypertensive chronic kidney disease with stage 1 through stage 4 chronic kidney disease, or unspecified chronic kidney disease; I25.2 Old myocardial infarction; F32.9 Major depressive disorder, single episode, unspecified; F17.290 Nicotine dependence, other tobacco product, uncomplicated; F41.9 Anxiety disorder, unspecified; N18.3 Chronic kidney disease, stage 3 (moderate); E78.5 Hyperlipidemia, unspecified; F03.90 Unspecified dementia, unspecified severity, without behavioral disturbance, psychotic disturbance, mood disturbance, and anxiety; Z79.899 Other long term (current) drug therapy; Z94.7 Corneal transplant status; Z85.47 Personal history of malignant neoplasm of testis
CPT/HCPCS: 36415; 70496; 70498; 71275; 78452; 80048; 80053; 83690; 84443; 84484; 85025; 85610; 85730; 93005; 93017; 96360; 96361; 97802; 99218; 99285; 99406; A9500; J7030; Q9967; A4216; G0378; J2785

== ENCOUNTER → 2019-05-08 | Outpatient (CLI) | payer MEDICARE, SELFPAY ==
[2019-05-08 10:47] VITALS: BMI 25.0
[2019-05-08 11:13] LABS: Erythrocyte Sedimentation Rate 49 mm/hr (0-20)
[2019-05-08 11:27] LABS: Rheumatoid Factor < 10.0 IU/mL (<15)
[2019-05-09 14:38] LABS: ANTINUCLEAR ANTIBODIES DIRECT Negative (Negative)
[2019-05-10 03:06] LABS: Cytoplasmic Ab (C-ANCA) <1:20 titer (Neg:<1:20)
[2019-05-10 11:47] LABS: CCP IgG Antibodies 5 units (0-19); Perinuclear Ab (P-ANCA) <1:20 titer (Neg:<1:20)
== END | disposition home or self-care (01) ==
LOC: PAVLAB 10:55
PROVIDERS: Family Provider Family Medicine; PCP Family Medicine; Referring Provider Internal Medicine Critical Care Medicine; Visit Provider Internal Medicine Critical Care Medicine
DX: R07.9 Chest pain, unspecified (principal); R06.09 Other forms of dyspnea
CPT/HCPCS: 36415; 85652; 86038; 86141; 86200; 86225; 86235; 86256; 86431

== ENCOUNTER 2019-07-05 19:05 | Inpatient (IN) | payer MEDICARE, SELFPAY ==
[2019-06-04 12:58] VITALS: BMI 25.9
[2019-07-05] VITALS (16 sets, daily range): BP systolic 85–189; BP diastolic 49–119; PULSE 48–82; RESP 14–19; TEMP 36.2–37.1; O2SAT 93–100; BMI 26.2; BMI 26.9
--- NOTE | 2019-07-05 19:15 | EKG12_ITS ---
Test Reason : DYSRHYTHMIA Blood Pressure : / mmHG Vent. Rate : 073 BPM Atrial Rate : 073 BPM P-R Int : 140 ms QRS Dur : 090 ms QT Int : 426 ms P-R-T Axes : 056 -04 000 degrees QTc Int : 469 ms Normal sinus rhythm Nonspecific ST and T wave abnormality Prolonged QT Abnormal ECG Confirmed by KIMBERLEY BRAXTON, SHAISTA ([id number]), video effects editor OCHOA DONNELLY ([id number]) on 07/09/2019 3:40:36 PM Referred By: DOMINGO Confirmed By:LAURA CHU MD
--- NOTE | 2019-07-05 19:15 | RAD_ITS ---
STUDY: X-RAY CHEST REASON FOR EXAM: Male, 69 years old. ET tube placement TECHNIQUE: Single AP portable view of the chest. COMPARISON: Report of previous study of 04/03/2014 FINDINGS: sound engineer audio control leads are seen. There is an endotracheal tube with tip 2.8 cm proximal to the luther. The lungs are clear and expanded. There is no demonstrated pleural abnormality. Normal size heart. Normal mediastinum and leanne. Normal visualized pulmonary arteries. There are calcified plaques of the aortic arch. Normal visualized thoracic spine. Normal visualized ribs, clavicles, and shoulders. There is no demonstrated abnormality of the visualized soft tissue structures of the upper abdomen. RAD/Chest 1 View (Portable) IMPRESSION: Endotracheal tube seen with tip 2.8 cm proximal to the luther. Calcified plaques of the aortic arch. Electronically Signed: Christiano Jason MD at 20:30 EDT , Service support ,
--- NOTE | 2019-07-05 19:17 | ED.RN ---
20G PIV STARTED IN THE RIGHT AC BY NNEKA, 20G PIV STARTED IN THE LEFT AC BY LUCIEN. 60MG OF PROPOFOL GIVEN BY NNEKA IN THE RIGHT AC AT 1923, 20MG ETOMIDATE GIVEN BY ALBERT IN THE RIGHT AC AT 1922. INTUBATED AT 1923 WITH 7.5 TUBE 22 AT THE GUMS. 50MG ROCCURONIUM GIVEN IN THE LEFT AC BY FERMÍN AT 1924.
[2019-07-05] MEDS: Rocuronium Bromide 50 MG/5 ML Vial IV ×2 (19:25→20:41)
[2019-07-05] MEDS: Propofol 10MG/Ml 1,000 MG/100 ML Bottle 4.7 MG CONT INF (19:26)
[2019-07-05] MEDS: Etomidate 20 MG/10 ML Vial 23 MG IV (19:27)
--- NOTE | 2019-07-05 19:27 | ED.DCSUM_ITS ---
History of Present Illness Chief Complaint: Other, Pain/Inj Detail of Chief Complaint: Trouble swallowing, change in voice and swelling Informant: Patient, Significant Other Onset: Today Context: Sudden Onset - First noted 1730 Timing: Continuous Quality: Angioedema Location: Neck Current Severity: Moderate Maximum Severity: Moderate Worsened by: LASHONDA inhibitor Relieved by: Nothing Associated Symptoms: Change in voice, trouble swallowing Narrative: Patient is a 69-year-old male with history of hypertension on lisinopril who presents because he had trouble swallowing change in voice and increased swelling of his neck. Symptoms first started at 1730. is concerned this was related to an EGD. He denies chest pain or shortness of breath. He denies GI symptoms. He has no other complaints. History was limited secondary to acuity of situation. Prior similar symptoms: No Recent Illness/Hospitalization: No - Past Medical History (1) CKD (chronic kidney disease) Status: Chronic (2) GERD (gastroesophageal reflux disease) Status: Chronic (3) Overweight (BMI 25.0-29.9) Status: Chronic (4) Tobacco abuse Status: Chronic Past Medical History - Allergies and Home Meds Allergies/Adverse Reactions: Allergies No Known Allergies Allergy (Verified 07/05/19 19:07) Primary Care Physician: Archie Flores MD [Primary Care Provider] - Prior records reviewed: Yes Surgical History: - - Left testicular removal, bilateral knee arthroscopic surgery, tonsillectomy, eye surgery, left wrist surgery. Lives: Spouse/ Significant Other Smoking Status: Current every day smoker Alcohol: Rare Drugs: None - Family History Maternal Family History: Family History (Last Reviewed 06/04/19 @ 13:38 by Ej Emerson MD) Father Cancer AAA (abdominal aortic aneurysm) Grandfather AAA (abdominal aortic aneurysm) Uncle AAA (abdominal aortic aneurysm) Family History: Reports: No pertinent history Paternal Family History: Family History (Last Reviewed 06/04/19 @ 13:38 by Ej Emerson MD) Father Cancer AAA (abdominal aortic aneurysm) Grandfather AAA (abdominal aortic aneurysm) Uncle AAA (abdominal aortic aneurysm) Family History: Reports: No pertinent history Review of Systems ROS: Unable to Obtain - Because of acuity of situation questions were yes and no General: Denies: Chills, Fever Eyes: Denies: Visual changes - bilaterally, Blurred Vision - bilaterally ENT: Denies: Rhinorrhea, Sore throat - Planes of throat swelling not pain Cardiovascular: Denies: Chest pain, Palpitations Respiratory: Denies: Dyspnea, Cough, Dyspnea on exertion, Orthopnea Gastrointestinal: Denies: Abdominal pain, Nausea, Vomiting, Diarrhea, Melena, Hematochezia Musculoskeletal: Reports: Neck pain - Tightness. Denies: Myalgias, Arthralgias Hematologic: Denies: Easy bruising, Easy bleeding Allergy: Reports: Swelling of the mouth, Swelling of the tongue Physical Exam Vital Signs/Narrative: Vital Signs Temp Pulse Resp BP Pulse Ox 07/05/19 19:06 97.7 F L 65 18 129/77 H 95 Inital Vital Signs reviewed: Yes General: Well nourished, Well developed, No Acute Distress Head: Normocephalic, Atraumatic Eyes: Perrl, EOMI. Negative for: Pale conjunctiva, Scleral icterus, - ENT: No rhinorrhea, - - There is evidence of angioedema. Tongue is swollen. Uvula is swollen. The anterior left neck is swollen. Trachea is midline. There is stridor noted. Neck: Supple, Nontender, No lymphadenopathy, No JVD, - - Read ENT exam Cardiovascular: Regular rate, Regular rhythm, No murmurs Respiratory: No distress, CTA bilaterally, Chest nontender Abdomen: Soft, Nontender, Nondistended, Normal bowel sounds Rectal: Deferred Back: Nontender, Normal Inspection Extremities: Nontender, No edema Skin: Normal color, No rash, No Trauma. Negative for: Cyanosis, Diaphoresis, Jaundice Neurological: Alert, Oriented x3, Cranial nerves II-XII grossly intact, Normal Strength, Normal Sensation Psychological: Normal affect, Normal Mood Diagnostic/Tx/Re-eval Chest X-Ray - ED: 1 View, Read by ED Physician, Normal, Heart, Bony Structures, No Acute Disease, - - Tip of endotracheal tube is approximately 2 cm from the luther. The film is supine and portable 07/05/19 19:15 Abdomen Single View (Portable) [RAD] Stat Chest 1 View (Portable) [RAD] Stat Laboratory Results 07/05/19 07/05/19 19:14 19:14 WBC 8.9 RBC 4.00 L Hgb 13.5 Hct 41.3 MCV 103.3 H MCH 33.8 H MCHC 32.7 RDW Std Deviation 56.3 H RDW Coeff of Karen 14.7 H Plt Count 171 MPV 11.0 Immature Gran % (Auto) 0.400 Neut % (Auto) 65.9 Lymph % (Auto) 21.6 [place] % (Auto) 6.9 Eos % (Auto) 4.8 Baso % (Auto) 0.4 Absolute Neuts (auto) 5.9 Absolute Lymphs (auto) 1.93 Nucleated RBC % 0 Sodium 138 Potassium 4.2 Chloride 105 Carbon Dioxide 30.0 Anion Gap 3 L BUN 15 Creatinine 1.32 H Estim Creat Clear Calc 52.54 Est GFR (MDRD) Af Amer 70 Est GFR (MDRD) Non-Af 57 L BUN/Creatinine Ratio 11.4 Glucose 112 H Calcium 9.0 Blood work is remarkable for creatinine 1.32 will need to compare to prior. - Rhythm Strip Rhythm Strip: Sinus Rhythm Rate: 68 Ectopy: PVC(s) - EKG Initial EKG Interpretation: Sinus Rhythm - Circular rate is 73. There is no ossific ST-T wave changes noted in the 3, V4 and V5. QT interval is prolonged. PA interval is 140 ms. QS duration is 90 ms. QT intervals 426 ms with a QTC of 469 ms. Cisco is normal. - Medical Decision Making Patient with angioedema. With stridor, difficulty swallowing change in voice patient was prepped oral tracheal intubation. He was preoxygenated with oxygen by nonrebreather mask. He initially received 20 mg of etomidate. A 7.5 [place] tube was placed with minimal difficulty. The supraglottic tissue is swollen and touching the tissue with the glide scope because of bleeding. There is appropriate color change on the capnometer. EKG appropriate blood work was obtained. Since this is secondary to LASHONDA inhibitor and there is no evidence of allergic angioedema he was not treated with epinephrine, Solu-Medrol, H1 or H2 antony. I was asked by nursing staff to place NG. I am unable to pass my finger past the back of his tongue. The NG cannot be placed. This caused increased bleeding and was aborted. - Critical Care Time Critical care time (excluding procedures): 30-74 minutes - Care time 33 minutes, Discussing w/Patient &/or Family/Glass Or Mirror Inspector, Discussing w/Consultants, Arranging Admission or Transfer Procedures Procedure(s): She was intubated with a 7.5 endotracheal tube using glide scope. He was pretreated with oxygen and received 20 mg of etomidate. Once the tube was placed he received 50 mg of rocuronium and was placed on a propofol drip after 60 mg bolus. 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
[2019-07-05] MEDS: Propofol 200 MG/20 ML Vial 60 MG IV BOLUS (19:28)
--- NOTE | 2019-07-05 19:29 | ED.RN ---
Addendum entered by Kena Crouch 07/05/19 20:10: SOFT RESTRAINTS PLACED ON BOTH WRISTS AT 1945 PER MD ORDER. Original Note: NNEKA POLO ATTEMPED PLACEMENT OF 18FR, DR. CRANE ATTEMPTED OG PLACEMENT. OG COULDN'T BE PLACED, NO FURTHER ORDERS AT THIS TIME. 16FR TEMPERATURE COLBY PLACED AT 1930 BY ALBERT POLO. HR 82, 94% O2 SAT, 10 RR, 175/81 BP.
[2019-07-05 19:41] LABS: Absolute Lymphocyte Count 1.93 X10^3/uL (0.83-4.51); Absolute Neutrophil Count 5.9 X10^3/uL (2.0-7.7); Basophil# 0.04 X10^3/uL; Basophil% 0.4 % (0-1); Eosinophil# 0.43 X10^3/uL; Eosinophils% 4.8 % (0-5); Hematocrit 41.3 % (40-54); Hemoglobin 13.5 g/dL (13.0-16.5); Lymphocyte # 1.93 X10^3/ul (4.0); Lymphocyte % 21.6 % (19-41); Mean Corp Hgb Conc 32.7 g/dL (32-36); Mean Corpuscular Hgb 33.8 pg (27.0-32.0); Mean Corpuscular Volume 103.3 fL (80-94); Monocyte# 0.62 X10^3/uL; Monocyte% 6.9 % (0-10); NRBC Flagged by Analyzer 0 % (0-5); Neutrophil # 5.87 X10^3/uL (2.7-7.7); Neutrophil % 65.9 % (47-70); Platelet Count 171 K/mm3 (150-450); RBC Distribution Width CV 14.7 % (11.6-14.6); RBC Distribution Width SD 56.3 fl (35.1-43.9); White Blood Count 8.9 K/mm3 (4.4-11.0)
[2019-07-05 19:48] LABS: Anion Gap 3 (5-15); BUN 15 mg/dL (7-18); BUN/Creat Ratio 11.4 RATIO (10-20); Chloride 105 mmol/L (98-107); Creatinine, Serum 1.32 mg/dL (0.70-1.30); EST Glomerular Filtration Rate 57 mL/min (>60); Est Glom Filt Rate - Afr Amer 70 mL/min (>60); Estimated Creatinine Clearance 52.54 ml/min; Glucose 112 mg/dL (74-106); Potassium 4.2 mmol/L (3.5-5.1); Sodium Level 138 mmol/L (136-145)
--- NOTE | 2019-07-05 20:03 | HP.PCM_ITS ---
Problem List (1) Respiratory failure Status: Acute Qualifiers: Chronicity: unspecified (2) Angioedema due to angiotensin converting enzyme inhibitor (LASHONDA-I) Status: Acute (3) HTN (hypertension) Status: Chronic Qualifiers: Hypertension type: essential hypertension Qualified Code(s): I10 - Essential (primary) hypertension (4) History of AAA (abdominal aortic aneurysm) repair Status: Chronic (5) Tobacco abuse Status: Chronic (6) CKD (chronic kidney disease) Status: Chronic Qualifiers: Chronic kidney disease stage: stage 3 (moderate) Qualified Code(s): N18.3 - Chronic kidney disease, stage 3 (moderate) (7) GERD (gastroesophageal reflux disease) Status: Chronic Qualifiers: Esophagitis presence: esophagitis presence not specified Qualified Code(s): K21.9 - Gastro-esophageal reflux disease without esophagitis History of Present Illness Date of Admission: 07/05/19 Chief Complaint: Throat edema, dysphagia The patient is a 69 y/o M w/ PMHx: Hx Sinus bradycardia, GERD, Hx NE/CAD, Hx AAA s/p repair, Depression and Anxiety, HTN, HLD, Hx Testicular CA, CKD stage III (baseline Cr 1.3-1.6) who presents to the [facility] ED on 07/05/19 with history of recent EGD at outside facility specifically [facility] secondary to ongoing left upper abdominal quadrant discomfort and questionable dilated pancreatic ducts but noted to be unremarkable upon evaluation per and upon returning home onset of sore throat and some mild dysphagia which progressively worsened through the evening and near 5 PM following removal of his dentures he noted he was having significant difficulty with discomfort and throat swelling prompting ED evaluation. Work-up in the ED included CBC with W BC 8.9, hemoglobin 13.5, platelet 171 without shift, BMP with BUN/creatinine 15/1.32, glucose 112, chest x-ray with ET tube in place with no acute cardio primary findings, EKG with sinus rhythm with ST-T wave changes in V3, V4 and V5 with prolonged QT. In the ED given concern for airway safety and compromise patient was initiated on propofol, etomidate, succinylcholine and transition to propofol drip following successful intubation. Past Medical History Past Medical History (Chronic Problems): Chronic Problems (Last Reviewed 06/04/19 @ 13:38 by Ej Emerson MD) HTN (hypertension) (Chronic) History of AAA (abdominal aortic aneurysm) repair (Chronic) Tobacco abuse (Chronic) Dyspnea (Chronic) Overweight (BMI 25.0-29.9) (Chronic) CKD (chronic kidney disease) (Chronic) Chronic abdominal pain (Chronic) GERD (gastroesophageal reflux disease) (Chronic) Medical History: Medical History (Last Reviewed 06/04/19 @ 13:38 by Ej Emerson MD) Overweight (BMI 25.0-29.9) (Chronic) E66.3 CKD (chronic kidney disease) (Chronic) N18.9 Chronic abdominal pain (Chronic) R10.9, G89.29 GERD (gastroesophageal reflux disease) (Chronic) K21.9 Palpitations R00.2 Depressive disorder F32.9 Essential hypertension I10 Hiatal hernia K44.9 Acute kidney injury (Resolved) N17.9 Aneurysm of infrarenal abdominal aorta (Resolved) I71.4 Bradycardia (Resolved) R00.1 Cephalgia (Resolved) R51 Myocardial infarct, old I25.2 Symptomatic bradycardia (Resolved) R00.1 Testicular cancer (Resolved) C62.90 Allergies No Known Allergies Allergy (Verified 07/05/19 19:07) Home Medications: Ambulatory Orders Medication Instructions Recorded fluoxetine 20 mg capsule 20 mg PO BID cap 04/23/19 gabapentin 400 mg capsule 400 mg PO TID cap 04/23/19 melatonin 10 mg capsule 10 mg PO QHS 04/23/19 nitroglycerin 0.4 mg sublingual 0.4 mg SUBLINGUAL Q5-15M PRN 04/23/19 tablet rivastigmine 4.6 mg/24 hour 1 patch TRANSDERMAL DAILY 04/23/19 transdermal patch Atorvastatin Calcium [Lipitor] 10 mg PO DAILY 04/27/19 meclizine 25 mg tablet 25 mg PO TID #90 tab 04/30/19 lisinopril 5 mg tablet 5 mg PO DAILY #90 tab 06/04/19 Pantoprazole Sodium [Protonix] 40 mg PO DAILY 07/05/19 Surgical History: Surgical History (Last Reviewed 06/04/19 @ 13:38 by Ej Emerson MD) History of AAA (abdominal aortic aneurysm) repair Z98.890 History of arthroscopic knee surgery Z98.890 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 Surgical History: - - Left testicular removal, bilateral knee arthroscopic surgery, tonsillectomy, left wrist surgery, AAA repair, left eye corneal transplant. Psychiatric History: Anxiety, Depression Lives: Spouse/ Significant Other Smoking Status: Current every day smoker Tobacco Use: Cigarettes Alcohol: Rare Drugs: None - *Family History Maternal Family History: Family History (Last Reviewed 06/04/19 @ 13:38 by Ej Emerson MD) Father Cancer AAA (abdominal aortic aneurysm) Grandfather AAA (abdominal aortic aneurysm) Uncle AAA (abdominal aortic aneurysm) History Items: Heart Disease Paternal Family History: Family History (Last Reviewed 06/04/19 @ 13:38 by Ej Emerson MD) Father Cancer AAA (abdominal aortic aneurysm) Grandfather AAA (abdominal aortic aneurysm) Uncle AAA (abdominal aortic aneurysm) History Items: Heart Disease Review of Systems Constitutional: Reports: Anorexia, Malaise, Weakness, Fatigue. Denies: Chills, Fever, Weight Change HEENT: Reports: Difficulty Swallowing, Sore Throat. Denies: Head Aches, Sinus Congestion, Sinus Drainage Cardiovascular: Denies: Chest Pain, Palpitations Respiratory: Reports: Shortness of Breath. Denies: Cough, Shortness of breath at rest, Sputum production Gastrointestinal: Reports: Abdominal Pain. Denies: Nausea, Vomiting Genitourinary: Denies: Dysuria Musculoskeletal: Reports: Joint Pain. Denies: Joint Tenderness Skin: Denies: Rash, Wounds Neurological: Denies: Numbness, Tingling, Focal weakness Psychiatric: Reports: Anxiety, Depression. Denies: Homicidal Ideations, Suicidal Ideations Hematologic/ Lymphatic: Denies: Easy Bruising, Easy Bleeding Comment: ROS given by spouse present. VTE Information - Inpt Only VTE Present on Admission: No VTE Mechan Device Prophylaxis: SCD's VTE Pharm Prophylaxis ordered?: Yes Patient Problems: Active and Suspected Problems (Last Reviewed 06/04/19 @ 13:38 by Ej Emerson MD) Angioedema due to angiotensin converting enzyme inhibitor (LASHONDA-I) (Acute) Respiratory failure (Acute) Subjective: Laying in ED bed, intubated, sedated, currently administering rocuronium given mild agitation. Objective: Physical Examination: General: Sedated, intubated, unable to answer orientation questions, mildly agitated currently, being administered rocuronium. Skin: normal color, turgor, no icterus, cyanosis. HEENT: AT/NC, EOM unable to be assessed given sedated status, PERRLA, dry MM, noted tongue edema, mild perioral edema but not severe appearing, oropharynx difficult to assess given intubated status but very tight, no carotid bruits or JVD noted. Lungs: Bilaterally symmetric rise, clear to auscultation, intubated status, no rales, ronchi or wheezing. Heart: Regular rate and rhythm; no gallop, rub audible. Abdomen: soft, NTTP, ND, normal BS, no HSM. Extremities: no cyanosis, clubbing, or edema. Neurological: Sedated, intubated, unable to answer orientation questions, mildly agitated currently, being administered rocuronium, cognitive function not baseline intact; pupils equally reactive to light and accomodation; unable to assess cranial nerves given acute presentation, mildly agitated upon initial presentation with now recommending being given, strength accordingly severely global decrease. Psychiatric: affect appears flat, sedated, no acute evidence of depressive or anxiety feelings. - Physical Exam Vital Signs Temp Pulse Resp BP Pulse Ox 97.7 F L 71 14 129/77 H 100 07/05/19 19:06 07/05/19 19:26 07/05/19 19:26 07/05/19 19:06 07/05/19 19:26 Oxygen Delivery Method Mechanical Ventilator Weight: 172 lb 9.951 oz Body Mass Index (BMI) 26.2 Intake and Output for Last 24 Hours 07/03/19 07/04/19 07/05/19 23:59 23:59 23:59 Intake Total 0.78 / 0.78 Balance 0.78 / 0.78 Laboratory Tests Past 24 Hrs 07/05/19 07/05/19 19:14 19:14 WBC 8.9 RBC 4.00 L Hgb 13.5 Hct 41.3 MCV 103.3 H MCH 33.8 H MCHC 32.7 RDW Std Deviation 56.3 H RDW Coeff of Karen 14.7 H Plt Count 171 MPV 11.0 Immature Gran % (Auto) 0.400 Neut % (Auto) 65.9 Lymph % (Auto) 21.6 [place] % (Auto) 6.9 Eos % (Auto) 4.8 Baso % (Auto) 0.4 Absolute Neuts (auto) 5.9 Absolute Lymphs (auto) 1.93 Nucleated RBC % 0 Sodium 138 Potassium 4.2 Chloride 105 Carbon Dioxide 30.0 Anion Gap 3 L BUN 15 Creatinine 1.32 H Estim Creat Clear Calc 52.54 Est GFR (MDRD) Af Amer 70 Est GFR (MDRD) Non-Af 57 L BUN/Creatinine Ratio 11.4 Glucose 112 H Calcium 9.0 Assessment/Plan All Active Problems (Last Reviewed 06/04/19 @ 13:38 by Ej Emerson MD) Angioedema due to angiotensin converting enzyme inhibitor (LASHONDA-I) (Acute) Respiratory failure (Acute) Dizziness (Acute) Palpitations (Acute) Chest pain (Acute) Acute kidney injury (Resolved) Aneurysm of infrarenal abdominal aorta (Resolved) Bradycardia (Resolved) Cephalgia (Resolved) Symptomatic bradycardia (Resolved) Testicular cancer (Resolved) The patient is a 69 y/o M w/ PMHx: Hx Sinus bradycardia, GERD, Hx NE/CAD, Hx AAA s/p repair, Depression and Anxiety, HTN, HLD, Hx Testicular CA, CKD stage III (baseline Cr 1.3-1.6) who presents to the [facility] ED on 07/05/19 with history of recent EGD at outside facility specifically [facility] with following the procedure progressively worsening dysphagia, airway discomfort and swelling. 1. Acute impending respiratory failure with airway compromise secondary to Acute Angioedema, Possibly related to ACEI although recent AM EGD performed with near immediate onset of airway edema following: Will admit to the ICU, maintain intubated status, continue sedation, ICU consultation, although suspected ACEI involvement given recent AM interventions, will initiate IV solumedrol, IV Famotidine and IV benadryl, continue to closely monitor. Once airway edema has improved with plan to add OG at that time. 2. Chronic Kidney Disease Stage III: Admission BUN/Cr 15/1.32, baseline renal function 1.3-1.6, stable, repeat BMP in AM. 3. Hypertension: Given acute presentation with concern for angioedema secondary to lisinopril will be discontinued and listed as an allergy, PRN IV hydralazine in interim. 4. Hyperlipidemia: We will hold home statin therapy given inability to place OG. 5. Anxiety and depression: We will hold home fluoxetine given inability to place OG. 6. Hx AAA: s/p repair, stable. 7. GERD: IV famotidine. 8. DVT prophylaxis: SCDs, Lovenox. 9. CODE status: Patient does not have healthcare power of title attorney nor living will set up. present and discussed presentation with encouragement to do so. Discussed CODE status at length including difference between FULL code, DNR- CCA and DNR-CC status. Following discussions about the differences in these status, unable to continued full CODE STATUS. Advanced Care Planning Face to Face Time: 16 minutes. Code Visit Inpatient E&M: 21192 Init Hosp L3 Procedures: 12357 Advncd Care Plan 30 Min
--- NOTE | 2019-07-05 20:05 | ED.RN ---
UNABLE TO INSERT NG/OG. ATTEMPTS BY NURSE AND DR CRANE
[2019-07-05] MEDS: fentaNYL 100 MCG/2 ML Ampul IV (20:24)
[2019-07-05] MEDS: fentaNYL drip 100 ML 2.5 MCG IV (20:33)
--- NOTE | 2019-07-05 20:42 | ED.RN ---
PT WAS SUCTIONED BY FERMÍN POLO IN LINE AND ORALLY.
[2019-07-05 22:01] LABS: Base Excess 0 mmol/L (-2 to +2); Blood Gas Specimen Type ART; FI02 30; Mode A-C; O2 Delivery Device Vent; PEEP 5; PO2 64 mmHG (75-100); RR 14; SITE L Radial; SO2 91 % (95-99); Time Given 2150; Total Carbon Dioxide 26 mmol/L; Vt 450; pCO2 44.1 mmHg (35-45); pH 7.36 (7.35-7.45)
[2019-07-05] MEDS: 0.9% Normal Saline 1,000 ML 125 ML IV (22:12)
[2019-07-05] MEDS: Chlorhexidine 15 ML PO (22:14)
[2019-07-05] MEDS: DiphenhydrAMINE 50 MG/ML Syringe IV (22:30)
[2019-07-06] VITALS (32 sets, daily range): BP systolic 97–144; BP diastolic 50–84; PULSE 38–63; RESP 14–23; TEMP 36–37.1; O2SAT 92–99
--- NOTE | 2019-07-06 00:37 | RAD_ITS ---
STUDY: X-RAY CHEST REASON FOR EXAM: Male, 69 years old. Dyspnea TECHNIQUE: Single AP portable view of the chest. COMPARISON: 07/05/2019 FINDINGS: Endotracheal tube is seen its tip is at 2 cm superior to the luther. There is partial atelectasis in the right middle lobe and right lower lobe. There is moderate right pleural effusion. There is a small left pleural effusion. Normal size heart. Normal mediastinum and leanne. Normal visualized pulmonary arteries. Normal visualized aortic arch and descending thoracic aorta. Normal visualized thoracic spine. Normal visualized ribs, clavicles, and shoulders. There is no demonstrated abnormality of the visualized soft tissue structures of the upper abdomen. RAD/Chest 1 View (Portable) IMPRESSION: Endotracheal tube is seen its tip is at 2 cm superior to the luther. There is partial atelectasis in the right middle lobe and right lower lobe. There is moderate right pleural effusion. There is a small left pleural effusion. Electronically Signed: Vikki Leung, at 4:25 EDT Tel , Service support ,
--- NOTE | 2019-07-06 00:58 | CT_ITS ---
We are attempting to reach an attending provider to discuss findings. An addendum with communication details will be sent when the communication is complete. STUDY: CT SOFT TISSUE NECK WITH AND WITHOUT CONTRAST REASON FOR EXAM: Male, 69 years old. Angioedema post-EGD. History of hypertension, testicular cancer, kidney disease. RADIATION DOSAGE (If Supplied By Facility): CTDIvol = ( 20.03 ) mGy, DLP = ( 1300.51 ) mGycm TECHNIQUE: The patient was scanned in a multi-detector CT scanner. High resolution transaxial imaging was performed prior to and following intravenous administration of 75ML IV Isovue 300. Sagittal and coronal images were reconstructed. Individualized dose optimization techniques were used for this CT. COMPARISON: CTA neck 04/27/2019 FINDINGS: The endotracheal tube tip is at the luther level. There is opacification along the endotracheal tube involving the oropharynx, hypopharynx to the level of the vocal cords. There is enlargement with low attenuation of the tongue, along the tongue base with poor delineation/separation of the palatine tonsils. Normal bilateral parotid glands. Normal bilateral tank car loader spaces. Normal bilateral parapharyngeal spaces. Normal bilateral carotid spaces. Normal bilateral sublingual and submandibular glands and spaces. Normal visualized nasopharynx. Normal retropharyngeal space. Mild low attenuation and thickening of the perivertebral space. Normal visualized bilateral faucial tonsils. The visualized tongue, tongue base and oropharynx are normal. There are minimally enlarged lymph nodes of the neck, with preservation of normal saleem architecture, consistent with a reactive lymph hyperplasia. There is no demonstrated solid or cystic mass lesion. There is no abnormal contrast enhancement. Normal epiglottis, bilateral vallecula and hypopharynx. The pre-epiglottic and paraglottic adipose spaces are normal. Normal visualized bilateral piriform sinuses, aryepiglottic folds, vocal cords, and arytenoid-cricoid articulations. Normal subglottic trachea. Normal bilateral lobes of the thyroid gland. Chronic interstitial lung disease, hyperinflation and pulmonary fibrotic changes in the apices. There are borderline sized enlarged lymph nodes in the peritracheal and prevascular space. There is mucosal inflammatory disease of the paranasal sinuses consistent with chronic sinusitis. Fluid and pockets of air in the posterior nasopharynx frequently seen with intubation. There is multilevel degenerative changes of the cervical spine. The ascending thoracic aortic diameter on the first uptake image is 4 cm. There is a bovine arch as a vascular variant. CT/Soft Tissue Neck W/WO Contrast IMPRESSION: Enlargement of the tongue and edema involving the oropharynx with opacification of the posterior nasopharynx with fluid, opacification along the endotracheal tube to the level of the vocal cords most consistent with provided history of a meningioma edema. Allergies and tonsils are poorly delineated/separable from the adjacent soft tissue. No enhancing collection to suggest abscess formation. Cervical lymphoid hyperplasia. Fluid and pockets of air in the posterior nasopharynx felt to be related to the intubation. Endotracheal tube tip at the level of the luther. Retraction by 1.5 to 2 cm recommended. Endotracheal tube tip appeared superior to the luther on the chest x-ray 07/06/2019 0040 hours. Other nonacute findings as outlined above. Electronically Signed: Mercedes Matthews MD at 2:40 EDT , Service support ,
[2019-07-06] MEDS: Propofol 10MG/Ml 1,000 MG/100 ML Bottle 11.7 MG CONT INF (02:02)
[2019-07-06] MEDS: DiphenhydrAMINE 50 MG/ML Syringe IV (03:54)
[2019-07-06 04:32] LABS: Anion Gap 6 (5-15); BUN 16 mg/dL (7-18); Calcium,Total 8.3 mg/dL (8.5-10.1); Chloride 108 mmol/L (98-107); Creatinine, Serum 1.23 mg/dL (0.70-1.30); EST Glomerular Filtration Rate 62 mL/min (>60); Est Glom Filt Rate - Afr Amer 75 mL/min (>60); Estimated Creatinine Clearance 56.38 ml/min; Glucose 132 mg/dL (74-106); Potassium 4.7 mmol/L (3.5-5.1); Sodium Level 140 mmol/L (136-145)
[2019-07-06 04:50] LABS: Absolute Neutrophil Count 7.3 X10^3/uL (2.0-7.7); Basophil# 0.02 X10^3/uL; Basophil% 0.2 % (0-1); Eosinophil# 0.02 X10^3/uL; Eosinophils% 0.2 % (0-5); Hematocrit 37.1 % (40-54); Hemoglobin 12.1 g/dL (13.0-16.5); Lymphocyte % 8.5 % (19-41); Mean Corp Hgb Conc 32.6 g/dL (32-36); Mean Corpuscular Hgb 33.6 pg (27.0-32.0); Mean Corpuscular Volume 103.1 fL (80-94); Monocyte# 0.19 X10^3/uL; Monocyte% 2.3 % (0-10); NRBC Flagged by Analyzer 0 % (0-5); Neutrophil # 7.25 X10^3/uL (2.7-7.7); Neutrophil % 88.2 % (47-70); Platelet Count 137 K/mm3 (150-450); RBC Distribution Width CV 14.7 % (11.6-14.6); RBC Distribution Width SD 56.2 fl (35.1-43.9); White Blood Count 8.2 K/mm3 (4.4-11.0)
[2019-07-06] MEDS: 0.9% Normal Saline 1,000 ML 125 ML IV (04:57)
[2019-07-06] MEDS: Enoxaparin 40 MG/0.4 ML Syringe SC (04:57)
[2019-07-06] MEDS: fentaNYL drip 100 ML 12.5 MCG IV (05:51)
--- NOTE | 2019-07-06 06:32 | EKG12_ITS ---
Test Reason : BRADYCARDIA Blood Pressure : / mmHG Vent. Rate : 038 BPM Atrial Rate : 038 BPM P-R Int : 160 ms QRS Dur : 090 ms QT Int : 576 ms P-R-T Axes : 064 005 -43 degrees QTc Int : 457 ms Marked sinus bradycardia Nonspecific T wave abnormality Abnormal ECG Confirmed by FARZANA BRAXTON, JUSTIN ([id number]), news copy editor OCHOA DONNELLY ([id number]) on 07/13/2019 1:40:11 PM Referred By: LILIANA Confirmed By:JUSTIN YANES MD
--- NOTE | 2019-07-06 06:37 | PCM.CON.CC ---
Reason for Consult Date of Consultation: 07/06/19 Reason for Consultation: Angioedema/respiratory failure History of Present Illness: The patient is a 69-year-old male, with a history as outlined below, who presented to the emergency department on July 05 with upper airway edema, changes in vocal phonation and difficulty swallowing. The symptoms were noted to have began approximately 2 hours prior to his emergency department arrival. The patient had underwent an upper endoscopy with EUS yesterday morning (07/05) at [facility] due to a history of radiographic evidence of biliary tree dilation and unintentional weight weight loss, with concern for pancreatic malignancy. The patient was completed under monitored anesthesia care. The examination was grossly normal as well as the EUS. There was a normal pancreatic duct, pancreas and common bile duct. The patient does have an apparent long-standing history of dizziness, for which he has been evaluated by both pulmonary and cardiology. The patient was last seen by Dr. Emerson in May 2019, at which time, the patient was noted to have a resting heart rate in the 50s. The patient was also evaluated by Dr. Mcgill in the pulmonary medicine clinic in April 2019, at which time, the patient was noted to have radiographic evidence of emphysema and possible pulmonary fibrosis within the lung bases. Pulmonary function testing last completed in June 2017 revealed evidence of a mild mixed ventilatory defect with reduced diffusing capacity. Per ED documentation, the patient had notable angioedema, presumed secondary to LASHONDA inhibitor use, with stridor present. Therefore, following induction with etomidate, he was intubated with a #7.5 endotracheal tube. The supraglottic tissue was noted to be swollen. Initial laboratory evaluation revealed no evidence of a leukocytosis. Chemistry profile revealed a creatinine of 1.32. Follow-up plain film chest x-ray revealed the endotracheal tube to be within 2 cm of the luther with partial atelectasis present in the right middle and lower lobes along with a right-sided pleural effusion. CT neck was completed revealing soft tissue swelling consistent with angioedema. On the patient's CT neck, the endotracheal tube was essentially at the level of the luther. Overnight, the patient was maintained on Benadryl, Pepcid and IV steroids. The endotracheal tube was retracted this morning by 2 cm. The patient did have an audible cuff leak noted this morning as well. There has been concern overnight due to the presence of profound bradycardia with heart rates in the 30s and 40s. However, as noted above, the patient was noted by cardiology previously to have a resting heart rate in the 50s. I do suspect that his worsening bradycardia is likely being precipitated by the concurrent use of propofol and fentanyl for sedation. Past Medical History Past Medical History (Chronic Problems): Chronic Problems (Last Reviewed 06/04/19 @ 13:38 by Ej Emerson MD) HTN (hypertension) (Chronic) History of AAA (abdominal aortic aneurysm) repair (Chronic) Tobacco abuse (Chronic) Dyspnea (Chronic) Overweight (BMI 25.0-29.9) (Chronic) CKD (chronic kidney disease) (Chronic) Chronic abdominal pain (Chronic) GERD (gastroesophageal reflux disease) (Chronic) Medical History: Medical History (Last Reviewed 06/04/19 @ 13:38 by Ej Emerson MD) Overweight (BMI 25.0-29.9) (Chronic) E66.3 CKD (chronic kidney disease) (Chronic) N18.9 Chronic abdominal pain (Chronic) R10.9, G89.29 GERD (gastroesophageal reflux disease) (Chronic) K21.9 Palpitations R00.2 Depressive disorder F32.9 Essential hypertension I10 Hiatal hernia K44.9 Acute kidney injury (Resolved) N17.9 Aneurysm of infrarenal abdominal aorta (Resolved) I71.4 Bradycardia (Resolved) R00.1 Cephalgia (Resolved) R51 Myocardial infarct, old I25.2 Symptomatic bradycardia (Resolved) R00.1 Testicular cancer (Resolved) C62.90 Allergies lisinopril Allergy (Verified 07/05/19 20:42) Angioedema Home Medications: Ambulatory Orders Medication Instructions Recorded fluoxetine 20 mg capsule 20 mg PO BID cap 04/23/19 gabapentin 400 mg capsule 400 mg PO TID cap 04/23/19 melatonin 10 mg capsule 10 mg PO QHS 04/23/19 nitroglycerin 0.4 mg sublingual 0.4 mg SUBLINGUAL Q5-15M PRN 04/23/19 tablet rivastigmine 4.6 mg/24 hour 1 patch TRANSDERMAL DAILY 04/23/19 transdermal patch Atorvastatin Calcium [Lipitor] 10 mg PO DAILY 04/27/19 meclizine 25 mg tablet 25 mg PO TID #90 tab 04/30/19 lisinopril 5 mg tablet 5 mg PO DAILY #90 tab 06/04/19 Pantoprazole Sodium [Protonix] 40 mg PO DAILY 07/05/19 Surgical History: Surgical History (Last Reviewed 06/04/19 @ 13:38 by Ej Emerson MD) History of AAA (abdominal aortic aneurysm) repair Z98.890 History of arthroscopic knee surgery Z98.890 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 Surgical History: - - Left testicular removal, bilateral knee arthroscopic surgery, tonsillectomy, left wrist surgery, AAA repair, left eye corneal transplant. Psychiatric History: Anxiety, Depression Lives: Spouse/ Significant Other Smoking Status: Current every day smoker Tobacco Use: Cigarettes Alcohol: Rare Drugs: None - *Family History Maternal Family History: Family History (Last Reviewed 06/04/19 @ 13:38 by Ej Emerson MD) Father Cancer AAA (abdominal aortic aneurysm) Grandfather AAA (abdominal aortic aneurysm) Uncle AAA (abdominal aortic aneurysm) History Items: Heart Disease Paternal Family History: Family History (Last Reviewed 06/04/19 @ 13:38 by Ej Emerson MD) Father Cancer AAA (abdominal aortic aneurysm) Grandfather AAA (abdominal aortic aneurysm) Uncle AAA (abdominal aortic aneurysm) History Items: Heart Disease Review of Systems Unable to obtain accurate/complete ROS d/t: Due to current intubation and mechanical ventilation status. Patient Problems: Active and Suspected Problems (Last Reviewed 06/04/19 @ 13:38 by Ej Emerson MD) Angioedema due to angiotensin converting enzyme inhibitor (LASHONDA-I) (Acute) Respiratory failure (Acute) Objective: The patient's most recent lab work, culture data and imaging studies have all been personally reviewed. - Physical Exam General: - - Currently intubated, sedated and mechanically ventilated. HEENT: Atraumatic, PERRLA, Normocephalic Oral: - - Swelling of the soft tissue structures noted. Neck: Supple, Trachea Midline, - Lungs: - - Coarse mechanical breath sounds/rhonchi anterior. No wheezes or rales. Diminished air movement the posterior lung bases. Cardiovascular: Normal S1, Normal S2, No murmurs, Bradycardic Abdomen: Bowel Sounds Present, Soft, Non Tender Extremities: No clubbing, No cyanosis, No edema Skin: No breakdown Musculoskeletal: No Tenderness to Palpation of Joints or Extremities Lymphatic: No Cervical, Supraclavicular, or Inguinal Adenopathy Neurological: - - No focal neurological deficits. Currently sedated. Vital Signs Temp Pulse Resp BP Pulse Ox 97.2 F L 38 L 14 107/60 98 07/06/19 04:58 07/06/19 06:00 07/06/19 06:00 07/06/19 06:00 07/06/19 06:00 Oxygen Delivery Method Mechanical Ventilator Weight: 177 lb 7.554 oz Body Mass Index (BMI) 26.9 Intake and Output for Last 24 Hours 07/04/19 07/05/19 07/06/19 23:59 23:59 23:59 Intake Total 80.88 / 86.85 1258.83 / 1258.83 Output Total 350 / 350 200 / 200 Balance -269.12 / -263.15 1058.83 / 1058.83 Laboratory Tests Past 24 Hrs 07/05/19 07/05/19 07/05/19 19:14 19:14 21:56 WBC 8.9 RBC 4.00 L Hgb 13.5 Hct 41.3 MCV 103.3 H MCH 33.8 H MCHC 32.7 RDW Std Deviation 56.3 H RDW Coeff of Karen 14.7 H Plt Count 171 MPV 11.0 Immature Gran % (Auto) 0.400 Neut % (Auto) 65.9 Lymph % (Auto) 21.6 [place] % (Auto) 6.9 Eos % (Auto) 4.8 Baso % (Auto) 0.4 Absolute Neuts (auto) 5.9 Absolute Lymphs (auto) 1.93 Nucleated RBC % 0 Specimen Type ART Sample Site L Radial pH 7.36 Bicarbonate Actual 25.0 POC Total CO2 26 Base Excess 0 O2 Saturation 91 L O2 % 30 ABG pCO2 44.1 ABG pO2 64 L Respiration Rate 14 O2 Delivery Device Vent Minute Volume 6.00 Vent Mode A-C Tidal Volume 450 POC PEEP 5 Blood Gas Notified Whom [facility] Blood Gas Notified Time 2150 Sodium 138 Potassium 4.2 Chloride 105 Carbon Dioxide 30.0 Anion Gap 3 L BUN 15 Creatinine 1.32 H Estim Creat Clear Calc 52.54 Est GFR (MDRD) Af Amer 70 Est GFR (MDRD) Non-Af 57 L BUN/Creatinine Ratio 11.4 Glucose 112 H Calcium 9.0 07/06/19 07/06/19 04:15 04:15 WBC 8.2 RBC 3.60 L Hgb 12.1 L Hct 37.1 L MCV 103.1 H MCH 33.6 H MCHC 32.6 RDW Std Deviation 56.2 H RDW Coeff of Karen 14.7 H Plt Count 137 L MPV 11.0 Immature Gran % (Auto) 0.600 Neut % (Auto) 88.2 H Lymph % (Auto) 8.5 L [place] % (Auto) 2.3 Eos % (Auto) 0.2 Baso % (Auto) 0.2 Absolute Neuts (auto) 7.3 Absolute Lymphs (auto) 0.70 L Nucleated RBC % 0 Specimen Type Sample Site pH Bicarbonate Actual POC Total CO2 Base Excess O2 Saturation O2 % ABG pCO2 ABG pO2 Respiration Rate O2 Delivery Device Minute Volume Vent Mode Tidal Volume POC PEEP Blood Gas Notified Whom Blood Gas Notified Time Sodium 140 Potassium 4.7 Chloride 108 H Carbon Dioxide 26.0 Anion Gap 6 BUN 16 Creatinine 1.23 Estim Creat Clear Calc 56.38 Est GFR (MDRD) Af Amer 75 Est GFR (MDRD) Non-Af 62 BUN/Creatinine Ratio 13.0 Glucose 132 H Calcium 8.3 L Clinical Impression(s) from Imaging Studies Chest X-Ray 07/05/19 19:15 IMPRESSION: Endotracheal tube seen with tip 2.8 cm proximal to the luther. Calcified plaques of the aortic arch. Electronically Signed: Christiano Jason MD at 20:30 EDT , Service support , Chest X-Ray 07/06/19 00:37 IMPRESSION: Endotracheal tube is seen its tip is at 2 cm superior to the luther. There is partial atelectasis in the right middle lobe and right lower lobe. There is moderate right pleural effusion. There is a small left pleural effusion. Electronically Signed: Vikki Leung, at 4:25 EDT Tel , Service support , Soft Tissue Neck CT 07/06/19 00:58 IMPRESSION: Enlargement of the tongue and edema involving the oropharynx with opacification of the posterior nasopharynx with fluid, opacification along the endotracheal tube to the level of the vocal cords most consistent with provided history of a meningioma edema. Allergies and tonsils are poorly delineated/separable from the adjacent soft tissue. No enhancing collection to suggest abscess formation. Cervical lymphoid hyperplasia. Fluid and pockets of air in the posterior nasopharynx felt to be related to the intubation. Endotracheal tube tip at the level of the luther. Retraction by 1.5 to 2 cm recommended. Endotracheal tube tip appeared superior to the luther on the chest x-ray 07/06/2019 0040 hours. Other nonacute findings as outlined above. Electronically Signed: Mercedes Matthews MD at 2:40 EDT , Service support , ADDENDUM: 07/06/19 0306 IMPRESSION: Enlargement of the tongue and edema involving the oropharynx with opacification of the posterior nasopharynx with fluid, opacification along the endotracheal tube to the level of the vocal cords most consistent with provided history of a meningioma edema. Allergies and tonsils are poorly delineated/separable from the adjacent soft tissue. No enhancing collection to suggest abscess formation. Cervical lymphoid hyperplasia. Fluid and pockets of air in the posterior nasopharynx felt to be related to the intubation. Endotracheal tube tip at the level of the luther. Retraction by 1.5 to 2 cm recommended. Endotracheal tube tip appeared superior to the luther on the chest x-ray 07/06/2019 0040 hours. Other nonacute findings as outlined above. N.B. : The above information has been verbally conveyed by Mercedes Matthews MD to Dr. Byron MD, on 07/06/2019 02:59:06 (ET). Electronically Signed: Mercedes Matthews MD at 2:40 EDT , Service support , Assessment/Plan Active and Suspected Problems (Last Reviewed 06/04/19 @ 13:38 by Ej Emerson MD) Angioedema due to angiotensin converting enzyme inhibitor (LASHONDA-I) (Acute) Respiratory failure (Acute) RECOMMENDATIONS: 1. Hold off on ENT consultation for now. If issues are encountered with extubation, consultation can be placed at that time. 2. Continue bronchodilators, steroids, Benadryl and Pepcid. 3. Wean FiO2 to maintain oxygen saturations at or above 90%. 4. Place fentanyl and propofol on hold. Once patient is alert, transition to spontaneous mode mechanical ventilation with pressure support. 5. Apply Cetacaine topical spray to posterior oropharynx. 6. Continue appropriate ICU prophylaxis IMPRESSIONS: 1. Acute hypoxemic respiratory Failure in the setting of angioedema Appears to have been precipitated by LASHONDA inhibitor. The patient's upper endoscopy procedure performed the day prior was unremarkable per the procedure report. The patient has been maintained on Benadryl, Pepcid and steroids overnight. His oropharyngeal swelling has improved significantly this morning. The patient's sedative medications will be placed on hold and once the patient awakens, he can be transitioned to spontaneous mode of mechanical ventilation with pressure support. He will be reevaluated after morning rounds for the appropriateness of extubation. 2. Baseline bradycardia The patient has been evaluated by cardiology in the past and per documentation has a resting heart rate in the 50s. 3. Baseline mixed ventilatory defect The patient has been followed by Dr. Mcgill in the pulmonary medicine clinic in the past. Prior chest imaging did reveal evidence of emphysema and fibrotic lung changes. Continue bronchodilators as ordered. Wean supplemental oxygen to maintain saturations at or above 90%. 4. Hypertension/hyperlipidemia/anxiety/depression/GERD Complicates care, management, recovery and prognosis. Okay to resume home medication once patient is extubated. UPDATE: Following my evaluation of the patient this morning, his sedation medications were placed on hold. Once the effects of the sedatives wore off, he was placed on spontaneous mode of mechanical ventilation with pressure support. The patient did well on spontaneous for several hours. The patient had an audible cuff leak when the state pilot balloon was deflated. The patient is alert and following commands appropriately with a strong cough. Therefore, the decision was made to extubate the patient. I was personally present at the patient's bedside during his extubation. No stridor was present post extubation. The patient was placed on minimal supplemental oxygen. Will plan to continue benadryl, pepcid and steroids for now. A bedside swallow evaluation will also be completed by nursing with dietary advancement to follow. TIME: 45 minutes of critical care time, independent of procedures, was spent addressing the patient's acute respiratory failure, angioedema, bradycardia, review of all data and collaboration with the care team. ([id number], [id number]) Code Visit 9xxxx: [id number] Critical care first hour
[2019-07-06] MEDS: Tetracaine/Benzocaine/Butamben 1 APPLIC TOPICAL (07:25)
[2019-07-06 07:37] LABS: CPK Total, Creatine Kinase 63 U/L (39-308); Triglycerides 119 mg/dL
--- NOTE | 2019-07-06 08:36 | PCM.PROGNOTE ---
Patient Problems: Active and Suspected Problems (Last Reviewed 06/04/19 @ 13:38 by Ej Emerson MD) Angioedema due to angiotensin converting enzyme inhibitor (LASHONDA-I) (Acute) Respiratory failure (Acute) Subjective: The patient is a 69-year-old male with a past medical history of sinus bradycardia, GERD, CAD with history of [place], history of abdominal aortic aneurysm (status post repair), anxiety/depression, testicular cancer and chronic renal failure stage III who presented to the ED at [facility] on 07/05/19 of sore throat and trouble swallowing after an EGD at [facility]. The sx got progressively worst throughout the evening and at about 5 PM he took his dentures out and noticed his throat was swollen. Vital signs at presentation to the emergency department were temperature 97.7, pulse rate 65, blood pressure 129/77, respiratory rate 18 and he was 95% saturated on room air. PE by the ED physician showed edema of the tongue, left anterior neck and the uvula He had stridor. He was intubated and placed on mechanical ventilation in the ED. white blood cell count was 8.9 with an unremarkable differential. Hemoglobin was 13.5 with macrocytic indices. Platelets were within normal limits. BMP showed a BUN of 15 with a creatinine of 1.32 which is within his baseline. CXR per my review showed PVC. CT of the neck showed enlargement of the tongue and edema involving the oropharynx with opacification of the posterior nasopharynx with fluid, opacification along the endotracheal tube to the level of the vocal cords consistent with angioedema. There was no enhancing collection to suggest an abscess. There was fluid and pockets of air in the posterior nares oropharynx felt to be related to the intubation. He was admitted to the intensive care unit and started on Solu-Medrol, famotidine and IV Benadryl. Consult was ordered with Dr. Charli Mccartney. When the cuff was deflated in the AM on 07/06 he had a leak and he did well on a weaning trial. He was extubated and denied SOB, painful swallowing and trouble swallowing. He passed the bedside swallowing screen and was started on a diet. White blood cell count is within normal limits with a left shift, more likely than not secondary to high-dose intravenous steroids. BMP today is unremarkable. Creatinine is decreased to 1.23 from 1.32 at admission. - Physical Exam General: Alert, Oriented x3, Cooperative, No apparent distress, Well developed, Well nourished HEENT: Atraumatic, PERRLA, EOMI, Normocephalic Oral: Moist Mucosa, - - the uvula is swollen Neck: Supple, Negative Carotid Bruits, No Nodes, Trachea Midline Lungs: Clear to auscultation, No rhonchi, No wheeze, No rales Cardiovascular: Regular rate, Regular Rhythm, Normal S1, Normal S2, No murmurs, No Gallop Abdomen: Bowel Sounds Present, Soft, Non Tender, Non-Distended Extremities: No clubbing, No cyanosis, No edema, Peripheral Pulses Normal Skin: No rashes Neurological: Cranial nerves II-XII grossly intact, Neuro grossly intact Psych/Mental Status: Normal Affect, Appropriate Vital Signs Temp Pulse Resp BP Pulse Ox 97.2 F L 63 17 118/64 97 07/06/19 07:00 07/06/19 07:12 07/06/19 07:12 07/06/19 07:00 07/06/19 07:12 Oxygen Delivery Method Mechanical Ventilator Weight: 177 lb 7.554 oz Body Mass Index (BMI) 26.9 Intake and Output for Last 24 Hours 07/04/19 07/05/19 07/06/19 23:59 23:59 23:59 Intake Total 80.88 / 86.85 1283.02 / 1283.02 Output Total 350 / 350 200 / 200 Balance -269.12 / -263.15 1083.02 / 1083.02 Laboratory Tests Past 24 Hrs 07/05/19 07/05/19 07/05/19 19:14 19:14 21:56 WBC 8.9 RBC 4.00 L Hgb 13.5 Hct 41.3 MCV 103.3 H MCH 33.8 H MCHC 32.7 RDW Std Deviation 56.3 H RDW Coeff of Karen 14.7 H Plt Count 171 MPV 11.0 Immature Gran % (Auto) 0.400 Neut % (Auto) 65.9 Lymph % (Auto) 21.6 [place] % (Auto) 6.9 Eos % (Auto) 4.8 Baso % (Auto) 0.4 Absolute Neuts (auto) 5.9 Absolute Lymphs (auto) 1.93 Nucleated RBC % 0 Specimen Type ART Sample Site L Radial pH 7.36 Bicarbonate Actual 25.0 POC Total CO2 26 Base Excess 0 O2 Saturation 91 L O2 % 30 ABG pCO2 44.1 ABG pO2 64 L Respiration Rate 14 O2 Delivery Device Vent Minute Volume 6.00 Vent Mode A-C Tidal Volume 450 POC PEEP 5 Blood Gas Notified Whom [facility] Blood Gas Notified Time 2150 Sodium 138 Potassium 4.2 Chloride 105 Carbon Dioxide 30.0 Anion Gap 3 L BUN 15 Creatinine 1.32 H Estim Creat Clear Calc 52.54 Est GFR (MDRD) Af Amer 70 Est GFR (MDRD) Non-Af 57 L BUN/Creatinine Ratio 11.4 Glucose 112 H Calcium 9.0 Total Creatine Kinase Troponin I Triglycerides 07/06/19 07/06/19 07/06/19 04:15 04:15 04:15 WBC 8.2 RBC 3.60 L Hgb 12.1 L Hct 37.1 L MCV 103.1 H MCH 33.6 H MCHC 32.6 RDW Std Deviation 56.2 H RDW Coeff of Karen 14.7 H Plt Count 137 L MPV 11.0 Immature Gran % (Auto) 0.600 Neut % (Auto) 88.2 H Lymph % (Auto) 8.5 L [place] % (Auto) 2.3 Eos % (Auto) 0.2 Baso % (Auto) 0.2 Absolute Neuts (auto) 7.3 Absolute Lymphs (auto) 0.70 L Nucleated RBC % 0 Specimen Type Sample Site pH Bicarbonate Actual POC Total CO2 Base Excess O2 Saturation O2 % ABG pCO2 ABG pO2 Respiration Rate O2 Delivery Device Minute Volume Vent Mode Tidal Volume POC PEEP Blood Gas Notified Whom Blood Gas Notified Time Sodium 140 Potassium 4.7 Chloride 108 H Carbon Dioxide 26.0 Anion Gap 6 BUN 16 Creatinine 1.23 Estim Creat Clear Calc 56.38 Est GFR (MDRD) Af Amer 75 Est GFR (MDRD) Non-Af 62 BUN/Creatinine Ratio 13.0 Glucose 132 H Calcium 8.3 L Total Creatine Kinase 63 Troponin I 0.042 Triglycerides 119 Medical Necessity - Tobacco Use Smoking Status: Current every day smoker Tobacco Use: Cigarettes Assessment/Plan All Active Problems (Last Reviewed 06/04/19 @ 13:38 by Ej Emerson MD) Angioedema due to angiotensin converting enzyme inhibitor (LASHONDA-I) (Acute) Respiratory failure (Acute) Dizziness (Acute) Palpitations (Acute) Chest pain (Acute) Acute kidney injury (Resolved) Aneurysm of infrarenal abdominal aorta (Resolved) Bradycardia (Resolved) Cephalgia (Resolved) Symptomatic bradycardia (Resolved) Testicular cancer (Resolved) Impressions 1. Acute respiratory failure with hypoxemia due to angioedema - extubated on 07/06/19 Etiology? Lisinopril on hold. Continue Solu-Medrol, H2 antony and antihistamines. Continue to watch in the ICU today. Somewhat concerned about persistent edema of the uvula. His dtr stated she had a problem with her throat closing. Will check a C1Q, quantitative and functional to exclude hereditary angioedema. 2. abdominal pain with normal testing to date. Consider angioedema of the bowel wall. 3. Acute respiratory failure secondary to angioedema 4. Chronic renal failure stage III/hypertension/hyperlipidemia/anxiety/depression/history of AAA with repair/GERD continue home meds with the exception of the Lisinopril 5. DVT prophylaxis with ANAHI renner, SCDantony and Lovenox. Code Visit Inpatient E&M: 08095 Subs Hosp L3
[2019-07-06] MEDS: Chlorhexidine 15 ML PO (09:00)
--- NOTE | 2019-07-06 09:58 | CASEMGMT ---
RN CM Assessment Presentation: Angioedema Intro role of CM and purpose of RN CM assessment to patient, and grandkids during ICU interdisciplinary rounds.. Demographics, PCP and Pharmacy verified. Pt was extubated post rounds. RN CM returned to speak with pt and . Pt states he is independent @ home, no needs identified. He does not wear oxygen and hopes to return home without oxygen. PCP: Dr. Flores Specialists: Dr. Mcgill, pulmonology, Dr. Emerson, cardiology, Dr. Nguyen ([place]) Preferred [facility]acy: [facility] Insurance: [employer] Medicare PPO Prescription Benefit: yes LNOK: Rosalind Living Arrangements: Lives independently with his . States he does not use DME and is independent with ADL Transportation: Drives or can drive DME: none. Denies oxygen/cpap use @ home HHC: none Patient DC goals: Home DC PLAN: Anticipate home on dc with family support and physician f/elsa COLLIER RN ACM
[2019-07-06] MEDS: DiphenhydrAMINE 25 MG Capsule 50 MG PO ×3 (11:57→21:52)
[2019-07-06] MEDS: Famotidine 20 MG Tablet PO (21:53)
[2019-07-07] VITALS (9 sets, daily range): BP systolic 115–131; BP diastolic 48–78; PULSE 47–66; RESP 17–21; TEMP 36.6–36.7; O2SAT 92–97
[2019-07-07] MEDS: MELATONIN 10 MG TABLET PO (00:38)
[2019-07-07] MEDS: DiphenhydrAMINE 25 MG Capsule 50 MG PO (05:01)
[2019-07-07] MEDS: Gabapentin 400 MG Capsule PO (05:02)
[2019-07-07] MEDS: Enoxaparin 40 MG/0.4 ML Syringe SC (05:02)
[2019-07-07 05:21] LABS: Hematocrit 34.8 % (40-54); Hemoglobin 11.3 g/dL (13.0-16.5); POSITIVE COUNT YES
[2019-07-07 05:41] LABS: Anion Gap 6 (5-15); BUN 19 mg/dL (7-18); BUN/Creat Ratio 14.4 RATIO (10-20); Calcium,Total 8.1 mg/dL (8.5-10.1); Chloride 108 mmol/L (98-107); Creatinine, Serum 1.32 mg/dL (0.70-1.30); EST Glomerular Filtration Rate 57 mL/min (>60); Est Glom Filt Rate - Afr Amer 70 mL/min (>60); Estimated Creatinine Clearance 52.54 ml/min; Glucose 179 mg/dL (74-106); Magnesium 2.3 mg/dL (1.6-2.6); Potassium 4.5 mmol/L (3.5-5.1); Sodium Level 140 mmol/L (136-145)
--- NOTE | 2019-07-07 06:20 | PCM.PN.INT ---
Subjective: The patient was seen and examined at the bedside this morning. Events from the last 24 hours have been reviewed. The patient is currently afebrile, hemodynamically stable and maintaining appropriate oxygen saturations on room air. The patient has remained bradycardic with heart rates primarily in the 40s. He has done well from a respiratory perspective following extubation yesterday. The patient is currently sitting in his bedside recliner. He denies any shortness of breath, chest tightness, wheezing or cough. He is anxious to be discharged home. Objective: The patient's most recent lab work, culture data and imaging studies have all been personally reviewed. General: Alert, Oriented x3, Cooperative, No apparent distress HEENT: Atraumatic, PERRLA, Normocephalic Oral: No Gingival or Mucosal Lesions/ Ulcerations Neck: Supple, No Nodes, Trachea Midline Lungs: No rhonchi, No wheeze, No rales, Diminished Cardiovascular: Normal S1, Normal S2, No murmurs, Bradycardic Abdomen: Bowel Sounds Present, Soft, Non Tender Extremities: No clubbing, No cyanosis, No edema Skin: No breakdown Musculoskeletal: No Tenderness to Palpation of Joints or Extremities, No Muscle Wasting Lymphatic: No Cervical, Supraclavicular, or Inguinal Adenopathy Neurological: Cranial nerves II-XII grossly intact, Neuro grossly intact Psych/Mental Status: Alert and oriented to time, place, person, mood and affect Vital Signs Temp Pulse Resp BP Pulse Ox 97.9 F 47 L 17 130/68 H 93 07/07/19 05:00 07/07/19 06:00 07/07/19 06:00 07/07/19 06:00 07/07/19 06:00 Oxygen Flow Rate (L/min) 2 Oxygen Delivery Method Room Air Weight: 174 lb 2.643 oz Body Mass Index (BMI) 26.9 Intake and Output for Last 24 Hours 07/05/19 07/06/19 07/07/19 23:59 23:59 23:59 Intake Total 80.88 / 86.85 2291.35 / 2791.35 500 / 500 Output Total 350 / 350 1350 / 2150 800 / 800 Balance -269.12 / -263.15 941.35 / 641.35 -300 / -300 Labs (Last 48 Hours) 09/12/19 09/12/19 09/12/19 19:14 19:14 21:56 WBC 8.9 RBC 4.00 L Hgb 13.5 Hct 41.3 MCV 103.3 H MCH 33.8 H MCHC 32.7 RDW Std Deviation 56.3 H RDW Coeff of Karen 14.7 H Plt Count 171 MPV 11.0 Immature Gran % (Auto) 0.400 Neut % (Auto) 65.9 Lymph % (Auto) 21.6 [place] % (Auto) 6.9 Eos % (Auto) 4.8 Baso % (Auto) 0.4 Absolute Neuts (auto) 5.9 Absolute Lymphs (auto) 1.93 Nucleated RBC % 0 Specimen Type ART Sample Site L Radial pH 7.36 Bicarbonate Actual 25.0 POC Total CO2 26 Base Excess 0 O2 Saturation 91 L O2 % 30 ABG pCO2 44.1 ABG pO2 64 L Respiration Rate 14 O2 Delivery Device Vent Minute Volume 6.00 Vent Mode A-C Tidal Volume 450 POC PEEP 5 Blood Gas Notified Whom [facility] Blood Gas Notified Time 2150 Sodium 138 Potassium 4.2 Chloride 105 Carbon Dioxide 30.0 Anion Gap 3 L BUN 15 Creatinine 1.32 H Estim Creat Clear Calc 52.54 Est GFR (MDRD) Af Amer 70 Est GFR (MDRD) Non-Af 57 L BUN/Creatinine Ratio 11.4 Glucose 112 H Calcium 9.0 Magnesium Total Creatine Kinase Troponin I Triglycerides C1 Esterase Inhibitor Func C1 Esterase Inhib 07/06/19 07/06/19 07/06/19 04:15 04:15 04:15 WBC 8.2 RBC 3.60 L Hgb 12.1 L Hct 37.1 L MCV 103.1 H MCH 33.6 H MCHC 32.6 RDW Std Deviation 56.2 H RDW Coeff of Karen 14.7 H Plt Count 137 L MPV 11.0 Immature Gran % (Auto) 0.600 Neut % (Auto) 88.2 H Lymph % (Auto) 8.5 L [place] % (Auto) 2.3 Eos % (Auto) 0.2 Baso % (Auto) 0.2 Absolute Neuts (auto) 7.3 Absolute Lymphs (auto) 0.70 L Nucleated RBC % 0 Specimen Type Sample Site pH Bicarbonate Actual POC Total CO2 Base Excess O2 Saturation O2 % ABG pCO2 ABG pO2 Respiration Rate O2 Delivery Device Minute Volume Vent Mode Tidal Volume POC PEEP Blood Gas Notified Whom Blood Gas Notified Time Sodium 140 Potassium 4.7 Chloride 108 H Carbon Dioxide 26.0 Anion Gap 6 BUN 16 Creatinine 1.23 Estim Creat Clear Calc 56.38 Est GFR (MDRD) Af Amer 75 Est GFR (MDRD) Non-Af 62 BUN/Creatinine Ratio 13.0 Glucose 132 H Calcium 8.3 L Magnesium Total Creatine Kinase 63 Troponin I 0.042 Triglycerides 119 C1 Esterase Inhibitor Func C1 Esterase Inhib 07/06/19 07/07/19 07/07/19 15:20 04:55 04:55 WBC RBC Hgb 11.3 L Hct 34.8 L MCV MCH MCHC RDW Std Deviation RDW Coeff of Karen Plt Count MPV Immature Gran % (Auto) Neut % (Auto) Lymph % (Auto) [place] % (Auto) Eos % (Auto) Baso % (Auto) Absolute Neuts (auto) Absolute Lymphs (auto) Nucleated RBC % Specimen Type Sample Site pH Bicarbonate Actual POC Total CO2 Base Excess O2 Saturation O2 % ABG pCO2 ABG pO2 Respiration Rate O2 Delivery Device Minute Volume Vent Mode Tidal Volume POC PEEP Blood Gas Notified Whom Blood Gas Notified Time Sodium 140 Potassium 4.5 Chloride 108 H Carbon Dioxide 26.0 Anion Gap 6 BUN 19 H Creatinine 1.32 H Estim Creat Clear Calc 52.54 Est GFR (MDRD) Af Amer 70 Est GFR (MDRD) Non-Af 57 L BUN/Creatinine Ratio 14.4 Glucose 179 H Calcium 8.1 L Magnesium 2.3 Total Creatine Kinase Troponin I Triglycerides C1 Esterase Inhibitor Pending Func C1 Esterase Inhib Pending Microbiology 07/06/19 07:10 Sputum, Induced/Lukens Gram Stain - Final Clinical Impression(s) from Imaging Studies Chest X-Ray 07/05/19 19:15 IMPRESSION: Endotracheal tube seen with tip 2.8 cm proximal to the luther. Calcified plaques of the aortic arch. Electronically Signed: Christiano Jason MD at 20:30 EDT , Service support , Chest X-Ray 07/06/19 00:37 IMPRESSION: Endotracheal tube is seen its tip is at 2 cm superior to the luther. There is partial atelectasis in the right middle lobe and right lower lobe. There is moderate right pleural effusion. There is a small left pleural effusion. Electronically Signed: Vikki Leung, at 4:25 EDT Tel , Service support , Soft Tissue Neck CT 07/06/19 00:58 IMPRESSION: Enlargement of the tongue and edema involving the oropharynx with opacification of the posterior nasopharynx with fluid, opacification along the endotracheal tube to the level of the vocal cords most consistent with provided history of a meningioma edema. Allergies and tonsils are poorly delineated/separable from the adjacent soft tissue. No enhancing collection to suggest abscess formation. Cervical lymphoid hyperplasia. Fluid and pockets of air in the posterior nasopharynx felt to be related to the intubation. Endotracheal tube tip at the level of the luther. Retraction by 1.5 to 2 cm recommended. Endotracheal tube tip appeared superior to the luther on the chest x-ray 07/06/2019 0040 hours. Other nonacute findings as outlined above. Electronically Signed: Mercedes Matthews MD at 2:40 EDT , Service support , ADDENDUM: 07/06/19 0306 IMPRESSION: Enlargement of the tongue and edema involving the oropharynx with opacification of the posterior nasopharynx with fluid, opacification along the endotracheal tube to the level of the vocal cords most consistent with provided history of a meningioma edema. Allergies and tonsils are poorly delineated/separable from the adjacent soft tissue. No enhancing collection to suggest abscess formation. Cervical lymphoid hyperplasia. Fluid and pockets of air in the posterior nasopharynx felt to be related to the intubation. Endotracheal tube tip at the level of the luther. Retraction by 1.5 to 2 cm recommended. Endotracheal tube tip appeared superior to the luther on the chest x-ray 07/06/2019 0040 hours. Other nonacute findings as outlined above. N.B. : The above information has been verbally conveyed by Mercedes Matthews MD to Dr. Byron MD, on 07/06/2019 02:59:06 (ET). Electronically Signed: Mercedes Matthews MD at 2:40 EDT , Service support , Medical Necessity - Tobacco Use Smoking Status: Current every day smoker Tobacco Use: Cigarettes Assessment/Plan All Active Problems (Last Reviewed 06/04/19 @ 13:38 by Ej Emerson MD) Angioedema due to angiotensin converting enzyme inhibitor (LASHONDA-I) (Acute) Respiratory failure (Acute) Dizziness (Acute) Palpitations (Acute) Chest pain (Acute) Acute kidney injury (Resolved) Aneurysm of infrarenal abdominal aorta (Resolved) Bradycardia (Resolved) Cephalgia (Resolved) Symptomatic bradycardia (Resolved) Testicular cancer (Resolved) RECOMMENDATIONS: 1. Pepcid, steroids and Benadryl can be discontinued. 2. Encourage incentive spirometer use while in bed. 3. Continue bronchodilators. 4. The patient is currently scheduled to follow-up with Dr. Mcgill at the beginning of July. IMPRESSIONS: 1. Acute hypoxemic respiratory Failure in the setting of angioedema Resolved. Appears to have been precipitated by LASHONDA inhibitor. The patient's upper endoscopy procedure performed the day prior was unremarkable per the procedure report. The patient has been maintained on Benadryl, Pepcid and steroids with resolution of his upper airway swelling. The patient was able to be successfully extubated within 24 hours. He has remained stable from a respiratory perspective. He is currently maintaining appropriate oxygen saturations on room air. 2. Baseline bradycardia The patient has been evaluated by cardiology in the past and per documentation has a resting heart rate in the 50s. 3. Baseline mixed ventilatory defect The patient has been followed by Dr. Mcgill in the pulmonary medicine clinic in the past. Prior chest imaging did reveal evidence of emphysema and fibrotic lung changes. Continue bronchodilators as ordered. 4. Hypertension/hyperlipidemia/anxiety/depression/GERD Complicates care, management, recovery and prognosis. Okay to resume home medication once patient is extubated. This note was generated with [employer] dictation software. It may contain incorrect words, spelling, and punctuation that were not noted in checking the note before signing. DISPOSITION: The patient is medically stable for transfer out of the intensive care unit. Code Visit Inpatient E&M: 32256 Subs Hosp L3
--- NOTE | 2019-07-07 07:09 | DCINST_ITS ---
- Discharge Diagnoses Current Active Problems: Current Active and Chronic Problems (Last Reviewed 06/04/19 @ 13:38 by Ej Emerson MD) Angioedema due to angiotensin converting enzyme inhibitor (LASHONDA-I) (Acute) Respiratory failure (Acute) HTN (hypertension) (Chronic) History of AAA (abdominal aortic aneurysm) repair (Chronic) You will use the following diet at home:: Other - Resume previous diet Your food should be the consistency of: Regular Your liquids should be the consistency of: Regular/Thin Discharge Activity: - - Activity as tolerated Call your doctor if you observe: Fever of 101 or Higher, Shortness of breath, Chest pain, - - If any trouble swallowing, wheezing, tongue swelling, lips swelling call 911 and come back to the ED Instructions: ED Angioedema Additional Instructions: 1. We are not exactly sure what caused the angioedema. The most common cause of angioedema is a class of drugs called LASHONDA inhibitors. Lisinopril is one of these drugs so we have discontinued Lisinopril and you should list it as an allergy and never take it again. You should also NOT take any of the other LASHONDA inhibitors. LASHONDA inhibitors are use to treat high BP, heart failure and kidney disease in diabetes. If you are unsure about a medication ask your pharmacist if the drug is an LASHONDA inhibitor. 2. You still have a little wheezing today so I am sending you home with a steroid taper and a prescription for Benadryl. Take 1 or 2 Benadryl every 6 hours as needed for rash, itching, any perceived swelling of the tongue, etc. Benadryl can make you sleepy and it makes your mouth dry. 3. Angioedema can be hereditary due to an enzyme deficiency. I sent off a test for C1Q which is the enzyme lacking in the hereditary form. This is a send out test and the results are not back yet. Your PCP can discuss this with you at your next office visit. 4. You should get a medic alert bracelet that says you are allergice to LASHONDA inhibitors....the reaction is angioedema. Allergies/Adverse Reactions: Allergies lisinopril Allergy (Verified 07/05/19 20:42) Angioedema Medications to take at Discharge fluoxetine 20 mg capsule 20 mg PO BID cap 04/23/19 gabapentin 400 mg capsule 400 mg PO TID cap 04/23/19 melatonin 10 mg capsule 10 mg PO QHS 04/23/19 nitroglycerin 0.4 mg sublingual tablet 0.4 mg SUBLINGUAL Q5-15M PRN 04/23/19 rivastigmine 4.6 mg/24 hour transdermal patch 1 patch TRANSDERMAL DAILY 04/23/19 Atorvastatin Calcium [Lipitor] 10 mg PO DAILY 04/27/19 meclizine 25 mg tablet 25 mg PO TID #90 tab 04/30/19 Pantoprazole Sodium [Protonix] 40 mg PO DAILY 07/05/19 DiphenhydrAMINE [Benadryl] 25 - 50 mg PO Q6H PRN PRN #30 cap 07/07/19 MethylPREDNISolone DosePak [Medrol DosePak] 4 mg PO UD #1 box 07/07/19 The following prescriptions were given: DiphenhydrAMINE [Benadryl] 25 - 50 mg PO Q6H PRN PRN #30 cap PRN Reason: SOB, throat closing, itching Transmission Status: Pending to [id number] MethylPREDNISolone DosePak [Medrol DosePak] 4 mg PO UD #1 box Transmission Status: Pending to [id number] Primary Care Physician: Archie Flores MD [Primary Care Provider] - Please follow up with your Primary Care Physician in: 5-7 days Test Results: Test results from this visit will be discussed in further detail at your follow- up appointment, if applicable. C1Q esterase is pending at the time of discharge. Proposed Discharge Date: 07/07/19
--- NOTE | 2019-07-07 07:23 | PCM.DC.SUM ---
Discharge Date and Diagnosis - Problem List Patient Problems: Active and Suspected Problems (Last Reviewed 06/04/19 @ 13:38 by Ej Emerson MD) Angioedema due to angiotensin converting enzyme inhibitor (LASHONDA-I) (Acute) Respiratory failure (Acute) Date of Admission: 07/05/19 Date of Discharge: 07/07/19 - Primary Discharge Diagnosis Active and Suspected Problems (Last Reviewed 06/04/19 @ 13:38 by Ej Emerson MD) Acute respiratory failure due to angioedema of the airway causing obstruction Angioedema presumed to be due to angiotensin converting enzyme inhibitor (LASHONDA-I) (Acute) - Secondary Discharge Diagnosis Chronic Problems (Last Reviewed 06/04/19 @ 13:38 by Ej Emerson MD) HTN (hypertension) (Chronic) History of AAA (abdominal aortic aneurysm) repair (Chronic) Tobacco abuse (Chronic) Dyspnea (Chronic) Overweight (BMI 25.0-29.9) (Chronic) CKD (chronic kidney disease) (Chronic) Chronic abdominal pain (Chronic) - GERD (gastroesophageal reflux disease) (Chronic) Hospital Course and Treatment Imaging Results: Clinical Impression(s) from Imaging Studies Chest X-Ray 07/05/19 19:15 IMPRESSION: Endotracheal tube seen with tip 2.8 cm proximal to the luther. Calcified plaques of the aortic arch. Electronically Signed: Christiano Jason MD at 20:30 EDT , Service support , Chest X-Ray 07/06/19 00:37 IMPRESSION: Endotracheal tube is seen its tip is at 2 cm superior to the luther. There is partial atelectasis in the right middle lobe and right lower lobe. There is moderate right pleural effusion. There is a small left pleural effusion. Electronically Signed: Vikki Leung, at 4:25 EDT Tel , Service support , Soft Tissue Neck CT 07/06/19 00:58 IMPRESSION: Enlargement of the tongue and edema involving the oropharynx with opacification of the posterior nasopharynx with fluid, opacification along the endotracheal tube to the level of the vocal cords most consistent with provided history of a meningioma edema. Allergies and tonsils are poorly delineated/separable from the adjacent soft tissue. No enhancing collection to suggest abscess formation. Cervical lymphoid hyperplasia. Fluid and pockets of air in the posterior nasopharynx felt to be related to the intubation. Endotracheal tube tip at the level of the luther. Retraction by 1.5 to 2 cm recommended. Endotracheal tube tip appeared superior to the luther on the chest x-ray 07/06/2019 0040 hours. Other nonacute findings as outlined above. Electronically Signed: Mercedes Matthews MD at 2:40 EDT , Service support , ADDENDUM: 07/06/19 0306 IMPRESSION: Enlargement of the tongue and edema involving the oropharynx with opacification of the posterior nasopharynx with fluid, opacification along the endotracheal tube to the level of the vocal cords most consistent with provided history of a meningioma edema. Allergies and tonsils are poorly delineated/separable from the adjacent soft tissue. No enhancing collection to suggest abscess formation. Cervical lymphoid hyperplasia. Fluid and pockets of air in the posterior nasopharynx felt to be related to the intubation. Endotracheal tube tip at the level of the luther. Retraction by 1.5 to 2 cm recommended. Endotracheal tube tip appeared superior to the luther on the chest x-ray 07/06/2019 0040 hours. Other nonacute findings as outlined above. N.B. : The above information has been verbally conveyed by Mercedes Matthews MD to Dr. Byron MD, on 07/06/2019 02:59:06 (ET). Electronically Signed: Mercedes Matthews MD at 2:40 EDT , Service support , Laboratory Results - last 24 hr 07/06/19 07/07/19 07/07/19 04:15 04:55 04:55 Hgb 11.3 L Hct 34.8 L Sodium 140 Potassium 4.5 Chloride 108 H Carbon Dioxide 26.0 Anion Gap 6 BUN 19 H Creatinine 1.32 H Estim Creat Clear Calc 52.54 Est GFR (MDRD) Af Amer 70 Est GFR (MDRD) Non-Af 57 L BUN/Creatinine Ratio 14.4 Glucose 179 H Calcium 8.1 L Magnesium 2.3 Total Creatine Kinase 63 Troponin I 0.042 Triglycerides 119 Microbiology 07/06/19 07:10 Sputum, Induced/Lukens Gram Stain - Final Dr. Charli Mccartney-student loan counselor Operations: None Procedures: Intubation - intubated on 07/05/19 and extubated 07/06 Summary of Care Provided: The patient is a 69 year old M with a past medical history of sinus bradycardia, GERD, CAD with prior IA, history of abdominal aortic aneurysm with repair, depression/anxiety, hypertension, hyperlipidemia, history of testicular cancer and chronic renal failure stage III who presented to the ED on 07/05/19 who presented to the ED at [facility] on 07/05/2019 complaining of tongue swelling, sore throat, change in voice and difficulty swallowing. He had an EGD earlier in the day for chronic abdominal pain. The SX did not begin until after he was home following the procedure. He developed stridor in the ED and he was intubated by the emergency room physician. He was started on Solu-medrol, Pepcid and Benadryl and admitted to the ICU. Dr. Mccartney was consulted to participate in management. When the cuff was deflated on the morning of 07/06 he had a leak and he was stareted on a weaning trial which he tolerated well. He was extubated on 07/06 and later in the morning started on a diet. He had no further stridor, tongue swelling, lip swelling, trouble swallowing or SOB. The uvula is an irregular shape and it still appeared mildly edematous but, he was asymptomatic. He was monitored over night for any recurrence of sx. A C1Q esterase, quantitative and functional was ordered and is still pending at the time of discharge. On the morning of 07/07 he had no complaints. The uvula had not changed in appearance but he denied trouble swallowing and SOB. He was ambulated in the ansari on and had no SOB. Auscultation of the lungs revealed diminished BS's with rare coarse wheeze that mostly cleared after a cough. He was discharged home with a RX for a medrol dosepak and Benadryl. He will follow up in the office with Dr. Flores in 5-7 days. He was instructed to call 911 if any swelling of the lips, tongue, posterior pharynx. He will also call 911 for stridor, trouble swallowing, shortness of breath, dizziness. C1Q and the respiratory culture are still pending at the time of DC. He was afebrile for the duration of his hospital stay with a normal WBC count. Smoking cessation was advised and he was instructed to never take an LASHONDA inhibitor again and to list Lisinopril as an allergy. General: Alert, oriented ?3, cooperative, grumpy and c/o not getting any sleep Neck: Supple, trachea midline, no enlarged cervical nodes, no enlarged supraclavicular nodes Lungs: diminished with occasional coarse wheeze, symmetric chest expansion, not tachypneic, no conversational dyspnea, no accessory muscle use Heart: Regular rate and rhythm, normal S1, normal S2, no murmur, no gallop, no rub Abdomen: Soft, NT, ND, bowel sounds present Extremities: No clubbing, no peripheral edema, no cyanosis This note was generated with [employer] dictation software. It may contain incorrect words, spelling, and punctuation that were not noted in checking the note before signing. Patient Problems: Active and Suspected Problems (Last Reviewed 06/04/19 @ 13:38 by Ej Emerson MD) Angioedema due to angiotensin converting enzyme inhibitor (LASHONDA-I) (Acute) Respiratory failure (Acute) - Physical Exam Vital Signs Temp Pulse Resp BP Pulse Ox 97.9 F 47 L 17 130/68 H 93 07/07/19 05:00 07/07/19 06:00 07/07/19 06:00 07/07/19 06:00 07/07/19 06:00 Oxygen Flow Rate (L/min) 2 Oxygen Delivery Method Room Air Weight: 174 lb 2.643 oz Body Mass Index (BMI) 26.9 Intake and Output for Last 24 Hours 07/05/19 07/06/19 07/07/19 23:59 23:59 23:59 Intake Total 80.88 / 86.85 2291.35 / 2791.35 700 / 700 Output Total 350 / 350 1350 / 2150 1325 / 1325 Balance -269.12 / -263.15 941.35 / 641.35 -625 / -625 Microbiology Past 72 Hours 07/06/19 07:10 Gram Stain - Final Sputum, Induced/Lukens Laboratory Tests Past 24 Hrs 07/06/19 07/06/19 07/07/19 04:15 15:20 04:55 Hgb 11.3 L Hct 34.8 L Sodium Potassium Chloride Carbon Dioxide Anion Gap BUN Creatinine Estim Creat Clear Calc Est GFR (MDRD) Af Amer Est GFR (MDRD) Non-Af BUN/Creatinine Ratio Glucose Calcium Magnesium Total Creatine Kinase 63 Troponin I 0.042 Triglycerides 119 C1 Esterase Inhibitor Pending Func C1 Esterase Inhib Pending 07/07/19 04:55 Hgb Hct Sodium 140 Potassium 4.5 Chloride 108 H Carbon Dioxide 26.0 Anion Gap 6 BUN 19 H Creatinine 1.32 H Estim Creat Clear Calc 52.54 Est GFR (MDRD) Af Amer 70 Est GFR (MDRD) Non-Af 57 L BUN/Creatinine Ratio 14.4 Glucose 179 H Calcium 8.1 L Magnesium 2.3 Total Creatine Kinase Troponin I Triglycerides C1 Esterase Inhibitor Func C1 Esterase Inhib Discharge Activity: - - Activity as tolerated Call your doctor if you observe: Fever of 101 or Higher, Shortness of breath, Chest pain, - - If any trouble swallowing, wheezing, tongue swelling, lips swelling call 911 and come back to the ED Home Medications: Medications to take at Discharge fluoxetine 20 mg capsule 20 mg PO BID cap 04/23/19 gabapentin 400 mg capsule 400 mg PO TID cap 04/23/19 melatonin 10 mg capsule 10 mg PO QHS 04/23/19 nitroglycerin 0.4 mg sublingual tablet 0.4 mg SUBLINGUAL Q5-15M PRN 04/23/19 rivastigmine 4.6 mg/24 hour transdermal patch 1 patch TRANSDERMAL DAILY 04/23/19 Atorvastatin Calcium [Lipitor] 10 mg PO DAILY 04/27/19 meclizine 25 mg tablet 25 mg PO TID #90 tab 04/30/19 Pantoprazole Sodium [Protonix] 40 mg PO DAILY 07/05/19 DiphenhydrAMINE [Benadryl] 25 - 50 mg PO Q6H PRN PRN #30 cap 07/07/19 MethylPREDNISolone DosePak [Medrol DosePak] 4 mg PO UD #1 box 07/07/19 Following Prescrptions Were Given to Patient: DiphenhydrAMINE [Benadryl] 25 - 50 mg PO Q6H PRN PRN #30 cap PRN Reason: SOB, throat closing, itching Transmission Status: Pending to [id number] MethylPREDNISolone DosePak [Medrol DosePak] 4 mg PO UD #1 box Transmission Status: Pending to [id number] Primary Care Physician: Archie Flores MD [Primary Care Provider] - Please follow up with your Primary Care Physician in: 5-7 days Patient Instructions: ED Angioedema Disposition: Home Minutes spent on discharge:: 35 Medical Necessity - Tobacco Use Smoking Status: Current every day smoker Tobacco Use: Cigarettes Meaningful Use Info Meaningful Use Diagnoses (Choose all that apply): None applicable Code Visit Inpatient E&M: 16659 Disch Hosp
--- NOTE | 2019-07-09 15:09 | CASEMGMT ---
[facility] DC PHONE CALL DC DATE: 07/07/19 DC Disposition: Home Diagnosis on Discharge: angioedema LACE/STRATA: 07/26 Attempted call to patient's phone. No answer. Dami COLLIER RN AC
[2019-07-10 11:00] LABS: C1 EST Inhibitor, Functional 83 (.); C1 Esterase Inhibitor, Quant 28 mg/dL (21-39)
== END 2019-07-07 08:12 | disposition home or self-care (01) | DRG 915 ==
LOC: ED 20:31 → ICU 20:34
PROVIDERS: Internal Medicine Critical Care Medicine; Admitting Provider Family Medicine; Emergency Provider Emergency Medicine; Family Provider Family Medicine; PCP Family Medicine; Visit Provider Internal Medicine
DX: T78.3XXA Angioneurotic edema, initial encounter (principal); J96.01 Acute respiratory failure with hypoxia; J90 Pleural effusion, not elsewhere classified; T46.4X5A Adverse effect of angiotensin-converting-enzyme inhibitors, initial encounter; N18.3 Chronic kidney disease, stage 3 (moderate); K21.9 Gastro-esophageal reflux disease without esophagitis; I12.9 Hypertensive chronic kidney disease with stage 1 through stage 4 chronic kidney disease, or unspecified chronic kidney disease; E78.5 Hyperlipidemia, unspecified; I25.10 Atherosclerotic heart disease of native coronary artery without angina pectoris; I71.4 Abdominal aortic aneurysm, without rupture; F17.210 Nicotine dependence, cigarettes, uncomplicated; I25.2 Old myocardial infarction; Z94.7 Corneal transplant status; Z85.47 Personal history of malignant neoplasm of testis; E66.3 Overweight; Z86.79 Personal history of other diseases of the circulatory system; Z90.79 Acquired absence of other genital organ(s); Z79.52 Long term (current) use of systemic steroids; J43.9 Emphysema, unspecified; J84.10 Pulmonary fibrosis, unspecified; Z68.26 Body mass index [BMI] 26.0-26.9, adult
CPT/HCPCS: 31500; 31720; 36600; 51702; 70492; 71045; 80048; 82550; 82803; 83735; 84478; 84484; 85014; 85018; 85025; 86160; 86161; 87070; 87077; 87205; 93005; 94002; 94003; 94660; 97162; 97166; 97802; 99251; 99285; J7030; Q9967; A4216; G0463; J0330; J3490

== ENCOUNTER → 2019-07-26 07:52 | Outpatient (CLI) | payer MEDICARE, SELFPAY ==
[2019-05-08 10:47] VITALS: BMI 25.0
[2019-07-05 21:42] VITALS: BMI 26.9
--- NOTE | 2019-07-26 14:23 | PFTCOMP_ITS ---
COMPLETE PULMONARY FUNCTION TEST INTERPRETATION Brief HPI: Patient is a 69 year old male, currently under the care of myself, who presents to [facility] for complete pulmonary function tests secondary to diagnosis of dyspnea. Respiratory therapist reports good effort and reproducible results. Interpretation: Forced expiration spirometry shows a moderate large airways obstructive ventilatory defect with an FEV1 of 68% predicted. There is no significant bronchodilator response by strict ATS criteria. Spirograms are of good quality and plateau slowly, indicating slowly emptying areas of the lungs. The respiratory flow volume loop shows decreased expiratory flow rates at all lung volumes consistent with airway obstruction. Lung volumes by body plethysmography show a decreased total lung capacity at 4.91 L, 81% predicted. All other lung volumes are reduced symmetrically. Diffusion capacity by carbon monoxide is decreased at 57% predicted. The airway resistance is elevated. No previous pulmonary function tests were available for review. Impression: Irreversible moderate mixed ventilatory defect with symmetric reduction diffusing capacity
== END ==
PROVIDERS: Family Provider Family Medicine; PCP Family Medicine; Referring Provider Internal Medicine Critical Care Medicine; Visit Provider Internal Medicine Critical Care Medicine
DX: R06.09 Other forms of dyspnea (principal)
CPT/HCPCS: 94060; 94726; 94729

== ENCOUNTER → 2019-07-30 10:58 | Outpatient (CLI) | payer MEDICARE, SELFPAY ==
[2019-05-08 10:47] VITALS: BMI 25.0
[2019-07-05 21:42] VITALS: BMI 26.9
[2019-07-30 11:24] VITALS: PULSE 65; PULSE 78; PULSE 79; PULSE 80; O2SAT 93; O2SAT 94; O2SAT 95; O2SAT 96
--- NOTE | 2019-07-30 13:43 | PCM.PSN.6M ---
PSN 6 Minute Walk Test - 6 Minute Walk Test 6 Minute Walk Test: 6 Minute Walk Test PSN:6-Minute Walk Test Start: 07/30/19 11:24 Freq: Status: Active Protocol: [id number] Document 07/30/19 11:24 KYLAH (Rec: 07/30/19 11:27 KYLAH [id number]) 6 Minute Walk Test Date Performed 07/30/19 Time Performed 11:10 Height 5 ft 8 in Weight: 170 lb Weight in Pounds 170.[address]: Judd Mcgill Assistive device used: None Pre-test Oxygen Delivery Method Room Air Pulse Ox (%) 96 Pulse Rate (60-100 beats/min) 65 Dyspnea Nila Scale (0-10) 0 Exertion Nila Scale (6-20) 6 1st minute Oxygen Delivery Method Room Air Pulse Ox (%) 95 Pulse Rate (60-100 beats/min) 80 2nd minute Oxygen Delivery Method Room Air Pulse Ox (%) 94 Pulse Rate (60-100 beats/min) 78 3rd minute Oxygen Delivery Method Room Air Pulse Ox (%) 93 Pulse Rate (60-100 beats/min) 78 4th minute Oxygen Delivery Method Room Air Pulse Ox (%) 93 Pulse Rate (60-100 beats/min) 78 5th minute Oxygen Delivery Method Room Air Pulse Ox (%) 95 Pulse Rate (60-100 beats/min) 78 6th minute Oxygen Delivery Method Room Air Pulse Ox (%) 94 Pulse Rate (60-100 beats/min) 79 Dyspnea Nila Scale (0-10) 0 Exertion Nila Scale (6-20) 12 Post-test Oxygen Delivery Method Room Air Pulse Ox (%) 96 Pulse Rate (60-100 beats/min) 65 Full Laps Walked 16 Partial Lap, Number of Tiles Walked 6 Total Distance Walked (ft) 950 - Interpretation Interpretation: The patient ambulated 950 feet over the course of 6 minutes beginning on room air without assistive devices or breaks. Pretesting oxygen saturation was noted to be 96% on room air. With ambulation, the alexia oxygen saturation was 93%. There was no significant exertional oxygen desaturation. - Recommendations Recommendations: There is no indication for the use of supplemental oxygen at this time.
== END ==
PROVIDERS: Family Provider Family Medicine; PCP Family Medicine; Referring Provider Internal Medicine Critical Care Medicine; Visit Provider Internal Medicine Critical Care Medicine
DX: R06.09 Other forms of dyspnea (principal)
CPT/HCPCS: 94618

== ENCOUNTER → 2019-12-03 12:04 | Outpatient (CLI) | payer MEDICARE, SELFPAY ==
[2019-12-03 11:06] VITALS: BMI 25.2
[2019-12-03 13:11] LABS: Absolute Lymphocyte Count 1.63 X10^3/uL (0.83-4.51); Absolute Neutrophil Count 4.4 X10^3/uL (2.0-7.7); Basophil# 0.04 X10^3/uL; Basophil% 0.6 % (0-1); Eosinophil# 0.36 X10^3/uL; Eosinophils% 5.1 % (0-5); Hematocrit 37.4 % (40-54); Hemoglobin 11.9 g/dL (13.0-16.5); Lymphocyte # 1.63 X10^3/ul (4.0); Mean Corp Hgb Conc 31.8 g/dL (32-36); Mean Corpuscular Hgb 30.8 pg (27.0-32.0); Mean Corpuscular Volume 96.9 fL (80-94); Mean Platelet Vol. 10.6 fl (6.2-12.0); Monocyte# 0.66 X10^3/uL; Monocyte% 9.3 % (0-10); NRBC Flagged by Analyzer 0 % (0-5); Neutrophil # 4.37 X10^3/uL (2.7-7.7); Neutrophil % 61.7 % (47-70); Platelet Count 209 K/mm3 (150-450); RBC Distribution Width CV 16.1 % (11.6-14.6); RBC Distribution Width SD 57.5 fl (35.1-43.9); Red Blood Count 3.86 M/mm3 (4.6-6.2); White Blood Count 7.1 K/mm3 (4.4-11.0)
[2019-12-03 13:31] LABS: BUN 12 mg/dL (7-18); EST Glomerular Filtration Rate 64 mL/min (>60); Glucose 105 mg/dL (74-106)
[2019-12-03 13:32] LABS: ALB/GLOB Ratio 0.8 RATIO (0.9-2.4); AST(SGOT) 18 U/L (15-37); Alanine Aminotransfer ALT/SGPT 20 U/L (16-61); Albumin, Serum 3.2 g/dL (3.2-5.0); Alkaline Phosphatase 121 U/L (45-117); Anion Gap 2 (5-15); Calcium,Total 9.1 mg/dL (8.5-10.1); Chloride 105 mmol/L (98-107); Est Glom Filt Rate - Afr Amer 78 mL/min (>60); Free T3 2.8 pg/mL (2.18-3.98); Globulin 4.1 g/dL (2.2-4.2); Potassium 3.4 mmol/L (3.5-5.1); Protein, Total 7.3 g/dL (6.4-8.2); Sodium Level 137 mmol/L (136-145); T4 Total, Thyroxin 9.6 ug/dL (4.5-12.1); Thyroid Stim Hormone (TSH) 0.77 uIU/mL (0.358-3.74)
== END ==
PROVIDERS: PCP Family Medicine; Referring Provider Specialist; Visit Provider Specialist
DX: R53.83 Other fatigue (principal); R00.2 Palpitations
CPT/HCPCS: 36415; 80053; 84436; 84443; 84481; 85025

== ENCOUNTER → 2020-01-23 12:25 | Outpatient (CLI) | payer MEDICARE, SELFPAY ==
[2019-08-02 10:31] VITALS: BMI 26.3
[2019-12-03 11:06] VITALS: BMI 25.2
--- NOTE | 2020-01-23 16:59 | PFTCOMP ---
COMPLETE PULMONARY FUNCTION TEST INTERPRETATION Brief HPI: Patient is a 69 year old male, currently under the care of myself, who presents to [facility] for complete pulmonary function tests secondary to diagnosis of dyspnea. Respiratory therapist reports good effort and reproducible results. Interpretation: Forced expiration spirometry shows a severe large airways obstructive ventilatory defect with an FEV1 of 51% predicted. There is no significant bronchodilator response by strict ATS criteria. Spirograms are of good quality and plateau slowly, indicating slowly emptying areas of the lungs. The respiratory flow volume loop shows decreased expiratory flow rates at all lung volumes consistent with airway obstruction. Lung volumes by body plethysmography show a decreased total lung capacity at 3.87 L, 64% predicted. All other lung volumes are reduced symmetrically. Diffusion capacity by carbon monoxide is decreased at 60% predicted. The airway resistance is located. Compared to previous pulmonary function tests from 07/26/2019, there is been a significant reduction in all values, except DLCO by approximately 21%. Impression: Irreversible severe mixed ventilatory defect with significant worsening compared to July 2019
== END ==
PROVIDERS: Family Provider Family Medicine; PCP Family Medicine; Referring Provider Internal Medicine Critical Care Medicine; Visit Provider Internal Medicine Critical Care Medicine
DX: J96.90 Respiratory failure, unspecified, unspecified whether with hypoxia or hypercapnia (principal)
CPT/HCPCS: 94060; 94726; 94729

== ENCOUNTER 2020-02-05 01:52 | Inpatient (IN) | payer MEDICARE, SELFPAY ==
[2020-01-31 07:51] VITALS: BMI 25.2
[2020-02-05] VITALS (41 sets, daily range): BP systolic 124–184; BP diastolic 51–127; PULSE 70–103; RESP 12–88; TEMP 36.4–37.1; O2SAT 91–99; BMI 26.0; BMI 25.3
--- NOTE | 2020-02-05 02:04 | RAD_ITS ---
STUDY: X-RAY CHEST REASON FOR EXAM: Male, 69 years old. SOB TECHNIQUE: Single AP portable view of the chest. COMPARISON: 07/06/2019. 04/03/2014. FINDINGS: Multifocal bilateral airspace opacities, areas of hyperinflation, resolution of previous atelectatic changes in the right base. There is no demonstrated pleural abnormality. There is stable borderline cardiomegaly. Normal mediastinum and leanne. Normal visualized pulmonary arteries. There is atherosclerotic calcification of the aortic arch with tortuosity. Normal visualized thoracic spine. Normal visualized ribs, clavicles, and shoulders. There is no demonstrated abnormality of the visualized soft tissue structures of the upper abdomen. RAD/Chest 1 View (Portable) IMPRESSION: Multifocal airspace disease likely infiltrates possible pneumonia. Stable borderline cardiac size and arteriosclerosis. Electronically Signed: Mercedes Matthews MD at 3:21 EDT , Service support ,
--- NOTE | 2020-02-05 02:04 | EKG12_ITS ---
Test Reason : SOB Blood Pressure : / mmHG Vent. Rate : 091 BPM Atrial Rate : 091 BPM P-R Int : 168 ms QRS Dur : 084 ms QT Int : 374 ms P-R-T Axes : 053 -01 074 degrees QTc Int : 460 ms Normal sinus rhythm ST & T wave abnormality, consider lateral ischemia Abnormal ECG Confirmed by KRISITNA BONNER ([id number]), editor trade journal OCHOA DONNELLY ([id number]) on 02/07/2020 10:25:35 AM Referred By: Musa Pierce Confirmed By:KRISTINA BONNER
--- NOTE | 2020-02-05 02:06 | ED.VIS.DYS ---
History of Present Illness Chief Complaint: Shortness of Breath Informant: Patient Onset: Weeks - several; worse in past 3-4 days since finished prednisone Activity at onset: Rest Timing: Continuous Quality: Wheezing Current Severity: Severe Maximum Severity: Severe Worsened by: Coughing, Exertion, Lying flat Relieved by: Albuterol - a little, Rest, - - sitting up Associated Symptoms: Cough - productive, but swallowing int. Negative for: Fever, Sore throat Chest Pain: Continuous - heaviness Narrative: Patient states he has had cough and increased wheezing/COPD symptoms along with chest heaviness for the past several weeks. States he did a telemedicine visit and the doctor tried to prescribe him new medication but he could not afford it and so did not fill or take it. He then went to urgent care sometime last week, was put on doxycycline and prednisone, he is still on the doxycycline but the prednisone he finished 3 or 4 days ago, the prednisone did seem to help with the time, but he has been gradually getting worse since he finished the prednisone several days ago. He has albuterol and a nebulizer machine at home, it helped very little tonight prior to arrival so he presents to the emergency department. He states he has a history of congestive heart failure from unknown cause but never had a heart attack or a stent. Denies any recent edema in his legs. States he has much worse breathing when he lies down, which is happened before when he gets in the situation. 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 Smoking Status: Current every day smoker - Family History Maternal Family History: Family History (Last Reviewed 01/31/20 @ 07:51 by FIDELINA Wild) Father Cancer AAA (abdominal aortic aneurysm) Grandfather AAA (abdominal aortic aneurysm) Uncle AAA (abdominal aortic aneurysm) Family History: Reports: Heart Disease Paternal Family History: Family History (Last Reviewed 01/31/20 @ 07:51 by FIDELINA Wild) Father Cancer AAA (abdominal aortic aneurysm) Grandfather AAA (abdominal aortic aneurysm) Uncle AAA (abdominal aortic aneurysm) Family History: Reports: Heart Disease Review of Systems General: Reports: Malaise. Denies: Chills, Fever, Sweats Eyes: Denies: Visual changes - bilaterally, Diplopia ENT: Denies: Bilateral ear pain, Rhinorrhea, Sore throat Cardiovascular: Reports: Chest pain. Denies: Palpitations Respiratory: Reports: Dyspnea, Cough, Sputum, Dyspnea on exertion, Orthopnea Gastrointestinal: Denies: Abdominal pain, Nausea, Vomiting, Diarrhea, Melena, Hematochezia Genitourinary: Denies: Dysuria, Hematuria, Frequency Musculoskeletal: Denies: Back pain, Swelling, Extremity Pain Skin: Denies: Rash, Wounds Neurological: Denies: Headache, Weakness, Numbness Physical Exam Vital Signs/Narrative: Vital Signs Temp Pulse Resp BP Pulse Ox 02/05/20 01:57 98.5 F 90 22 H 163/127 H 95 02/05/20 01:53 98.5 F 90 22 H 163/127 H 96 Inital Vital Signs reviewed: Yes General: Well nourished, Well developed, Acute Distress - respiratory Head: Normocephalic, Atraumatic Eyes: Perrl, EOMI ENT: Moist mucous membranes, No rhinorrhea, TM's clear, - - POP clear, normal. Negative for: Sinus tenderness Neck: Supple, Nontender, No lymphadenopathy, No JVD Cardiovascular: Regular rate, Regular rhythm, No murmurs. Negative for: Tachycardia Respiratory: CTA bilaterally, Chest nontender, Rales - bibasilar, Wheezing - throughout, symmetrically, Diminished - throughout, symmetrically. Negative for: Rhonchi Abdomen: Soft, Nontender, Nondistended, Normal bowel sounds Back: Nontender, Normal Inspection Extremities: Nontender, No edema. Negative for: Calf Tenderness Skin: Normal color, No rash, No Trauma Neurological: Alert, Oriented x3, Cranial nerves II-XII grossly intact, Normal Strength, Normal Sensation Psychological: Normal affect, Normal Mood Diagnostic/Tx/Re-eval Impressions Chest X-Ray 02/05/20 02:04 IMPRESSION: Multifocal airspace disease likely infiltrates possible pneumonia. Stable borderline cardiac size and arteriosclerosis. Electronically Signed: Mercedes Matthews MD at 3:21 EDT , Service support , 02/05/20 02:04 Chest 1 View (Portable) [RAD] Stat 02/05/20 03:15 CT Chest [Chest without Contrast] [CT] Stat 02/05/20 02:15 Mucosa - Nasopharyngeal Influenza Types A,B Direct FA (NYASIA) - Final Laboratory Results 02/05/20 02/05/20 02/05/20 02:10 02:10 02:10 WBC 11.7 H RBC 4.30 L Hgb 13.0 Hct 40.7 MCV 94.7 H MCH 30.2 MCHC 31.9 L RDW Std Deviation 59.4 H RDW Coeff of Karen 17.3 H Plt Count 265 MPV 10.2 Immature Gran % (Auto) 2.500 H Neut % (Auto) 58.1 Lymph % (Auto) 26.7 [place] % (Auto) 8.5 Eos % (Auto) 3.6 Baso % (Auto) 0.6 Absolute Neuts (auto) 6.8 Absolute Lymphs (auto) 3.12 Nucleated RBC % 0.2 Specimen Type Sample Site VBG pH VBG pO2 VBG O2 Sat (Calc) VBG O2 Content VBG Base Excess POC Mix VBG pCO2 Pt Tmp O2 Delivery Device Blood Gas Notified Whom Blood Gas Notified Time Sodium 138 Potassium 3.8 Chloride 103 Carbon Dioxide 30.0 Anion Gap 5 BUN 19 H Creatinine 1.28 Estim Creat Clear Calc 54.18 Est GFR (MDRD) Af Amer 72 Est GFR (MDRD) Non-Af 59 L BUN/Creatinine Ratio 14.8 Glucose 112 H Lactic Acid 1.3 Calcium 8.8 Troponin I 0.095 H B-Natriuretic Peptide 02/05/20 02/05/20 02:10 02:40 WBC RBC Hgb Hct MCV MCH MCHC RDW Std Deviation RDW Coeff of Karen Plt Count MPV Immature Gran % (Auto) Neut % (Auto) Lymph % (Auto) [place] % (Auto) Eos % (Auto) Baso % (Auto) Absolute Neuts (auto) Absolute Lymphs (auto) Nucleated RBC % Specimen Type HERNÁN Sample Site R BRACHIAL VBG pH 7.40 VBG pO2 25 VBG O2 Sat (Calc) 45 L VBG O2 Content Not Reportable VBG Base Excess 7 H POC Mix VBG pCO2 Pt Tmp 50.8 O2 Delivery Device Room Air Blood Gas Notified Whom ED Blood Gas Notified Time 246 Sodium Potassium Chloride Carbon Dioxide Anion Gap BUN Creatinine Estim Creat Clear Calc Est GFR (MDRD) Af Amer Est GFR (MDRD) Non-Af BUN/Creatinine Ratio Glucose Lactic Acid Calcium Troponin I B-Natriuretic Peptide 1040.4 H - Rhythm Strip Rhythm Strip: Sinus Rhythm Rate: 90 Ectopy: None - EKG Initial EKG Interpretation: Sinus Rhythm, No Acute Injury Pattern, Non-Specific ST Changes - mostly laterally Prior: Unchanged Treatment - Dyspnea: Oxygen, Albuterol, Atrovent, Antibiotics, Steroid Repeat Evaluation: Improved - minimally - Medical Decision Making Patient was only mildly better after a round of 3 aerosol treatments including 1 DuoNeb. He began to feel a little worse and was struggling to breathe with accessory muscle use, continued respiratory distress, able to speak in 3-5 word sentences. His chest x-ray shows what appears to be on my interpretation patchy bilateral lower lobe infiltrates, congruent with radiologist interpretation. It is possible this is airspace disease but it is possible it is also interstitial and novel coronavirus-19 pattern is in the differential, as is cardiogenic pulmonary edema. Given this I think a CT chest would help to differentiate these to some degree. The patient is orthopneic and does not think he will be able to lie flat for a CT. I discussed with Dr. Mcgill, who is his physician office specialist. He agrees that given the compensated venous blood gas and lack of hypoxemia, it would be more reasonable to initiate BiPAP for now. I initiated empiric antibiotics to cover him for community-acquired pneumonia, Solu-Medrol 125 was given, plan is to admit him for further treatment and obtain CT prior to admission. He is feeling a little better on BiPAP. His troponin is elevated, his EKG shows some lateral nonspecific T wave abnormalities that look a little different compared with his old EKG, but nothing acute. Lab called and said that the proBNP machine is down so we will not be able to get that test. It may be helpful since his renal function looks good compared to usual for him. Discussed with Dr(s)/Consults: Artem Critical care time (excluding procedures): 30-74 minutes - 35 minutes including time spent discussing with patient and consultants, arranging admission, performing direct patient care and reevaluation at the bedside ED Disposition - Plan for ED Patient: Disposition: Acute Care Hospital [facility] Diagnosis: Acute respiratory failure, Chest pain, Elevated troponin, COPD with acute exacerbation, Lower respiratory tract infection, Suspected severe acute respiratory syndrome coronavirus 2 (SARS-CoV-2) infection
[2020-02-05] MEDS: MethylPREDNISolone 125 MG/2 ML Vial IV (02:11)
[2020-02-05 02:31] LABS: Absolute Lymphocyte Count 3.12 X10^3/uL (0.83-4.51); Absolute Neutrophil Count 6.8 X10^3/uL (2.0-7.7); Basophil# 0.07 X10^3/uL; Basophil% 0.6 % (0-1); Eosinophil# 0.42 X10^3/uL; Eosinophils% 3.6 % (0-5); Hematocrit 40.7 % (40-54); Lymphocyte # 3.12 X10^3/ul (4.0); Lymphocyte % 26.7 % (19-41); Mean Corp Hgb Conc 31.9 g/dL (32-36); Mean Corpuscular Hgb 30.2 pg (27.0-32.0); Mean Corpuscular Volume 94.7 fL (80-94); Mean Platelet Vol. 10.2 fl (6.2-12.0); Monocyte# 0.99 X10^3/uL; Monocyte% 8.5 % (0-10); NRBC Flagged by Analyzer 0.2 % (0-5); Neutrophil # 6.79 X10^3/uL (2.7-7.7); Neutrophil % 58.1 % (47-70); Platelet Count 265 K/mm3 (150-450); RBC Distribution Width CV 17.3 % (11.6-14.6); RBC Distribution Width SD 59.4 fl (35.1-43.9); White Blood Count 11.7 K/mm3 (4.4-11.0)
[2020-02-05 02:42] LABS: Anion Gap 5 (5-15); BUN 19 mg/dL (7-18); BUN/Creat Ratio 14.8 RATIO (10-20); Calcium,Total 8.8 mg/dL (8.5-10.1); Chloride 103 mmol/L (98-107); Creatinine, Serum 1.28 mg/dL (0.70-1.30); EST Glomerular Filtration Rate 59 mL/min (>60); Est Glom Filt Rate - Afr Amer 72 mL/min (>60); Estimated Creatinine Clearance 54.18 ml/min; Glucose 112 mg/dL (74-106); Potassium 3.8 mmol/L (3.5-5.1); Sodium Level 138 mmol/L (136-145)
[2020-02-05] MEDS: Ipratropium/Albuterol Sulfate 3 ML AMPUL.NEB INHALATION ×6 (02:43→23:35)
[2020-02-05] MEDS: Albuterol 2.5 MG/3 ML VIAL.NEB. INHALATION ×3 (02:43→02:52)
[2020-02-05 02:47] LABS: Lactic Acid 1.3 mmol/L (0.4-1.9)
--- NOTE | 2020-02-05 03:15 | CT_ITS ---
STUDY: CT CHEST WITHOUT CONTRAST REASON FOR EXAM: Male, 69 years old. SOB, COUGH, CP, ABN CXR, WHEEZING RADIATION DOSAGE (If Supplied By Facility): CTDIvol = ( 11.60 ) mGy, DLP = ( 431.81 ) mGycm TECHNIQUE: Transaxial 2.5 mm imaging was performed without the administration of intravenous contrast material. Multiplanar coronal and sagittal images were reformatted. This examination is limited for the evaluation of gastrointestinal, solid organs and vascular structures due to the lack of intravenous and oral contrast. Individualized dose optimization techniques were used for this CT. COMPARISON: Chest x-ray 07/06/2019. 02/05/2020. CTA chest 04/27/2019. FINDINGS: There is septal prominence and fluid, bilateral peripheral pulmonary fibrosis and areas of hyperinflation with minimal peripheral airspace disease. There are bilateral small effusions. Normal heart and trace fluid in the pericardium. There are mild calcifications of the coronary arteries. Mediastinal lymphadenopathy, increased in size since previous examination, in the superior mediastinum on the right measuring 1.8 x 1, left 1 x 0.8 cm, prevascular space 1 x 0.8, 1.7 x 0.9, 2 x 1.1 cm. The precarinal lymph node measures 1.9 x 2 cm, previously 1 x 1.5 cm. Right hilar lymph node appears enlarged, poorly visualized on noncontrast imaging measuring approximately 1.5 x 1.5 cm. Additional smaller lymph nodes are noted. Normal unenhanced pulmonary arteries. There is atherosclerotic tortuosity of the aortic arch and descending thoracic aorta. Age-appropriate osseous structures. Severe stable involution of the of the left kidney. Normal bilateral adrenal glands. CT/Chest without Contrast IMPRESSION: Progression of pulmonary fibrosis since previous examination. Component of congestive heart failure suspected. Mediastinal and right hilar lymphadenopathy, progressive since previous examination. Minimal peripheral airspace opacification, possible mild inflammation superimposed on pulmonary fibrosis. No patchy air space disease or infiltrates are otherwise detected when compared to previous chest x-ray. Electronically Signed: Mercedes Matthews MD at 4:50 EDT , Service support ,
[2020-02-05 03:34] LABS: Blood Gas Specimen Type VEN; O2 Delivery Device Room Air; SITE R BRACHIAL
[2020-02-05 03:36] LABS: Time Given 246
[2020-02-05 03:37] LABS: VBG Bicarbonate 32 mmol/L (22-26); VBG PO2 25 mmHg (25-40); VBG pCO2 50.8 mmHg (41-51)
[2020-02-05 03:38] LABS: VBG BASE EXCESS 7 mmol/L (-1.0-3.5); VBG SO2 45 % (50-70)
[2020-02-05] MEDS: Ceftriaxone 1 GM/50 ML BAG IV ×2 (03:49→11:01)
[2020-02-05] MEDS: Azithromycin 250 MG Tablet 500 MG PO (04:04)
--- NOTE | 2020-02-05 04:05 | PCM.HP.STD ---
Problem List (1) Acute respiratory failure Status: Acute (2) Elevated troponin Status: Acute (3) COPD with acute exacerbation Status: Acute (4) Fatigue Status: Acute Qualifiers: Fatigue type: unspecified Qualified Code(s): R53.83 - Other fatigue (5) Essential hypertension Status: Chronic (6) Pulmonary fibrosis Status: Chronic (7) Chest pain Status: Chronic Qualifiers: Chest pain type: unspecified Qualified Code(s): R07.9 - Chest pain, unspecified History of Present Illness Date of Admission: 02/05/20 Chief Complaint: shortness of breath The patient is a 69 year old male patient with a past medical history of chronic obstructive pulmonary disease and congestive heart failure who presents to the emergency room with acute shortness of breath. Onset of this overall exacerbation has been approximately 2 weeks during which time the patient sought care through telemedicine and was placed on prednisone and doxycycline approximately a week ago, he did improve with the use of steroids which were discontinued 3 days ago and since that time he has relapsed and become worse. He states this exacerbation is worse than his normal exacerbations. Laboratory studies reveal sodium 138, potassium 3.8, chloride 103, bicarb 30, BUN 19, creatinine 1.28, glucose 112, white blood cell count 11.7, hemoglobin 13, hematocrit 40.7, platelets 265, venous blood gas pH 7.4, PO2 saturation 45, chest x-ray reveals multifocal airspace disease with stable borderline cardiac size, troponin 0 0.095, BNP 1040. The patient denies known contact with positive COVID-19 case, denies fevers or chills. Due to chest x-ray results and impending respiratory failure the patient will be placed on the COVID floor as a suspicious case until test results can be obtained. Currently the patient tolerates BiPAP and has a CT scan ordered on his way to the floor. The patient is also well-known to Dr. Mcgill will be consulted. Past Medical History Past Medical History (Chronic Problems): Chronic Problems (Last Reviewed 01/31/20 @ 07:51 by Irene Aguirre NP-E[facility]rain) Stage 3 severe COPD by GOLD classification (Chronic) FEV1 51% of predicted Dilation of thoracic aorta (Chronic) Palpitations (Chronic) Holter had revealed a 10 beat run of SVT and a 5 beat run of nonsustained V. tach. No beta-antony at this time due to resting bradycardia. Patient has not had any palpitations in the last 2 weeks. We will monitor this. Essential hypertension (Chronic) History of AAA (abdominal aortic aneurysm) repair (Chronic) Pulmonary fibrosis (Chronic) Stage 2 moderate COPD by GOLD classification (Chronic) Dizziness (Chronic) Appears to be due to vertigo. He is responding well to meclizine. We will go down further on lisinopril to see if there is any orthostatic component to it. Advised patient to ask PCP for further referral to neurology or ENT if felt appropriate by PCP. Tobacco abuse (Chronic) Dyspnea (Chronic) Chest pain (Chronic) Overweight (BMI 25.0-29.9) (Chronic) CKD (chronic kidney disease) (Chronic) Chronic abdominal pain (Chronic) GERD (gastroesophageal reflux disease) (Chronic) Medical History: Medical History (Last Reviewed 01/31/20 @ 07:51 by Irene Aguirre NP-C) Palpitations (Chronic) R00.2 Holter had revealed a 10 beat run of SVT and a 5 beat run of nonsustained V. tach. No beta-antony at this time due to resting bradycardia. Patient has not had any palpitations in the last 2 weeks. We will monitor this. 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 He is responding well to meclizine. We will go down further on lisinopril to see if there is any orthostatic component to it. Advised patient to ask PCP for further referral to neurology or ENT if felt appropriate by PCP. Tobacco abuse (Chronic) Z72.0 Dyspnea (Chronic) R06.00 Chest pain (Chronic) R07.9 Overweight (BMI 25.0-29.9) (Chronic) E66.3 CKD (chronic kidney disease) (Chronic) N18.9 Chronic abdominal pain (Chronic) R10.9, G89.29 GERD (gastroesophageal reflux disease) (Chronic) K21.9 Depressive disorder F32.9 Essential hypertension I10 Hiatal hernia K44.9 Acute kidney injury (Resolved) N17.9 Aneurysm of infrarenal abdominal aorta (Resolved) I71.4 Bradycardia (Resolved) R00.1 Cephalgia (Resolved) R51 Myocardial infarct, old I25.2 Symptomatic bradycardia (Resolved) R00.1 Testicular cancer (Resolved) C62.90 Allergies LASHONDA Inhibitors Allergy (Severe, Verified 02/05/20 01:57) Angioedema lisinopril Allergy (Severe, Verified 02/05/20 01:57) Angioedema Home Medications: Ambulatory Orders Medication Instructions Recorded fluoxetine 20 mg capsule 20 mg PO BID cap 04/23/19 gabapentin 400 mg capsule 400 mg PO TID cap 04/23/19 melatonin 10 mg capsule 10 mg PO QHS 04/23/19 nitroglycerin 0.4 mg sublingual 0.4 mg SUBLINGUAL Q5-15M PRN 04/23/19 tablet rivastigmine 1 patch TRANSDERMAL DAILY 04/23/19 Atorvastatin Calcium [Lipitor] 10 mg PO DAILY 04/27/19 Pantoprazole Sodium [Protonix] 40 mg PO DAILY 07/05/19 furosemide 20 mg tablet 20 mg PO DAILY tab 12/03/19 mirtazapine 15 mg tablet 15 mg PO DAILY tab 12/03/19 potassium chloride 10 mEq 10 meq PO DAILY #30 tab 12/03/19 tablet,extended release doxycycline hyclate 100 mg tablet 100 mg PO BID 01/30/20 glycopyrrolate 9 mcg-formoterol 2 inh INHALATION QAM AND QPM #1 inh 01/31/20 4.8 mcg HFA aerosol inhaler Surgical History: Surgical History (Last Reviewed 01/31/20 @ 07:51 by Irene Aguirre NP-[facility]) History of AAA (abdominal aortic aneurysm) repair (Chronic) Z98.890 History of AAA (abdominal aortic aneurysm) repair Z98.890 History of arthroscopic knee surgery Z98.890 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 Surgical History: - - Left testicular removal, bilateral knee arthroscopic surgery, tonsillectomy, left wrist surgery, AAA repair, left eye corneal transplant. Psychiatric History: Anxiety, Depression Smoking Status: Current every day smoker - *Family History Maternal Family History: Family History (Last Reviewed 01/31/20 @ 07:51 by FIDELINA Wild) Father Cancer AAA (abdominal aortic aneurysm) Grandfather AAA (abdominal aortic aneurysm) Uncle AAA (abdominal aortic aneurysm) History Items: Heart Disease Paternal Family History: Family History (Last Reviewed 01/31/20 @ 07:51 by FIDELINA Wild) Father Cancer AAA (abdominal aortic aneurysm) Grandfather AAA (abdominal aortic aneurysm) Uncle AAA (abdominal aortic aneurysm) History Items: Heart Disease Review of Systems Constitutional: Reports: Fatigue. Denies: Chills, Fever, Weight Change HEENT: Denies: Head Aches, Sinus Congestion, Sinus Drainage Cardiovascular: Denies: Chest Pain, Palpitations Respiratory: Reports: Cough, Shortness of breath at rest, Wheezing. Denies: Sputum production Gastrointestinal: Denies: Abdominal Pain, Nausea, Vomiting Genitourinary: Denies: Dysuria Musculoskeletal: Denies: Joint Pain, Joint Tenderness Skin: Denies: Rash, Wounds Neurological: Denies: Numbness, Tingling, Focal weakness Psychiatric: Denies: Anxiety, Depression, Homicidal Ideations, Suicidal Ideations Hematologic/ Lymphatic: Denies: Easy Bruising, Easy Bleeding VTE Information - Inpt Only VTE Present on Admission: No VTE Mechan Device Prophylaxis: None VTE Pharm Prophylaxis ordered?: Yes Patient Problems: Active and Suspected Problems (Last Reviewed 01/31/20 @ 07:51 by FIDELINA Wild) Acute respiratory failure (Acute) Elevated troponin (Acute) COPD with acute exacerbation (Acute) - Physical Exam Vitals/I&O's: Vital Signs Temp Pulse Resp BP Pulse Ox 98.2 F 95 24 H 170/101 H 97 02/05/20 03:08 02/05/20 03:40 02/05/20 03:40 02/05/20 03:08 02/05/20 03:40 Oxygen Delivery Method Room Air Weight: 171 lb 4.787 oz Body Mass Index (BMI) 26.0 General: Alert, Oriented x3, Cooperative HEENT: Atraumatic, Normocephalic Neck: Supple Lungs: Diminished, Short of Breath, Tachypneic, Wheezes Cardiovascular: Regular rate, Normal S1, Normal S2, No murmurs, Tachycardic Abdomen: Bowel Sounds Present, Soft, Non Tender Extremities: No edema Skin: No rashes Musculoskeletal: No Tenderness to Palpation of Joints or Extremities Neurological: Neuro grossly intact Psych/Mental Status: Normal Affect, Appropriate Microbiology Past 72 Hours 02/05/20 02:15 Mucosa - Nasopharyngeal Influenza Types A,B Direct FA ([facility]ASIA) - Final Laboratory Results 02/05/20 02:10: WBC 11.7 H, RBC 4.30 L, Hgb 13.0, Hct 40.7, MCV 94.7 H, MCH 30.2, MCHC 31.9 L, RDW Std Deviation 59.4 H, RDW Coeff of Karen 17.3 H, Plt Count 265, MPV 10.2, Immature Gran % (Auto) 2.500 H, Neut % (Auto) 58.1, Lymph % (Auto) 26.7, [place] % (Auto) 8.5, Eos % (Auto) 3.6, Baso % (Auto) 0.6, Absolute Neuts (auto) 6.8, Absolute Lymphs (auto) 3.12, Nucleated RBC % 0.2 02/05/20 02:10: Sodium 138, Potassium 3.8, Chloride 103, Carbon Dioxide 30.0, Anion Gap 5, BUN 19 H, Creatinine 1.28, Estim Creat Clear Calc 54.18, Est GFR (MDRD) Af Amer 72, Est GFR (MDRD) Non-Af 59 L, BUN/Creatinine Ratio 14.8, Glucose 112 H, Calcium 8.8, Troponin I 0.095 H 02/05/20 02:10: Lactic Acid 1.3 02/05/20 02:10: B-Natriuretic Peptide 1040.4 H 02/05/20 02:40: Specimen Type HERNÁN, Sample Site R BRACHIAL, VBG pH 7.40, VBG pO2 25, VBG O2 Sat (Calc) 45 L, VBG O2 Content Not Reportable, VBG Base Excess 7 H, POC Mix VBG pCO2 Pt Tmp 50.8, O2 Delivery Device Room Air, Blood Gas Notified Whom ED MD, Blood Gas Notified Time 246 Assessment/Plan All Active Problems (Last Reviewed 01/31/20 @ 07:51 by Irene Aguirre, CURLY-C) Acute respiratory failure (Acute) Elevated troponin (Acute) COPD with acute exacerbation (Acute) Fatigue (Acute) Angioedema due to angiotensin converting enzyme inhibitor (LASHONDA-I) (Resolved) Respiratory failure (Resolved) Acute kidney injury (Resolved) Aneurysm of infrarenal abdominal aorta (Resolved) Bradycardia (Resolved) Cephalgia (Resolved) Symptomatic bradycardia (Resolved) Testicular cancer (Resolved) Chronic Problems (Last Reviewed 01/31/20 @ 07:51 by FIDELINA Wild) Stage 3 severe COPD by GOLD classification (Chronic) FEV1 51% of predicted Dilation of thoracic aorta (Chronic) Palpitations (Chronic) Holter had revealed a 10 beat run of SVT and a 5 beat run of nonsustained V. tach. No beta-antony at this time due to resting bradycardia. Patient has not had any palpitations in the last 2 weeks. We will monitor this. Essential hypertension (Chronic) History of AAA (abdominal aortic aneurysm) repair (Chronic) Pulmonary fibrosis (Chronic) Stage 2 moderate COPD by GOLD classification (Chronic) Dizziness (Chronic) Appears to be due to vertigo. He is responding well to meclizine. We will go down further on lisinopril to see if there is any orthostatic component to it. Advised patient to ask PCP for further referral to neurology or ENT if felt appropriate by PCP. Tobacco abuse (Chronic) Dyspnea (Chronic) Chest pain (Chronic) Overweight (BMI 25.0-29.9) (Chronic) CKD (chronic kidney disease) (Chronic) Chronic abdominal pain (Chronic) GERD (gastroesophageal reflux disease) (Chronic) Plan 1. Acute respiratory failure\COPD exacerbation\ rule out COVID-19?transfer patient to [facility] floor and order COVID-[address] [facility]. We will continue Rocephin and azithromycin initiated in the emergency room for coverage of bacterial pneumonia. Continue BiPAP therapy initiated in the emergency room consult Dr. Mcgill known to the patient for pulmonary management. The patient has been steroid responsive therefore will start course of Solu-Medrol along with albuterol breathing treatments. The patient will remain in isolation until negative results for COVID testing are obtained. 2. Elevated troponin and congestive heart failure-cycle troponins, and consider dosing Lasix but will defer this to operating systems specialist. 3. Hypertension?we will continue home medications and add PRN hydralazine 4. Chronic kidney disease?continue to monitor metabolic panels kidney function stable at this time 5. DVT prophylaxis?low molecular weight heparin Essential Procedure Criteria Procedure Essential: No Criteria Note: On 01/08/2020 the [place] Department of Health ([facility]) Public Order signed by [facility] Director Skylar El M.D., regarding the Management of Non-Essential Surgeries and Procedures for the purpose of preserving Personal Protective Equipment (PPE) and critical hospital capacity and resources within [place] went into effect as of 01/09/2020 at 5:00PM. According to the [facility] Public Order: This action will remain in full force and effect until the State of Emergency declared by the Governor no longer exists or the Director of the [facility] rescinds or modifies this Order.. This [facility] order stated all non-essential or elective surgeries and procedures that utilize PPE should be delayed unless there is undue risk to the current or future health of a patient. After reviewing the aforementioned [facility] Public Order and the patients clinical case, I have determined that the scheduled procedure meets the criteria to go forward. Inpatient E&M: 14435 Init Hosp L3
[2020-02-05 06:28] LABS: Anion Gap 8 (5-15); BUN 18 mg/dL (7-18); BUN/Creat Ratio 14.9 RATIO (10-20); Calcium,Total 8.7 mg/dL (8.5-10.1); Chloride 103 mmol/L (98-107); Creatinine, Serum 1.21 mg/dL (0.70-1.30); EST Glomerular Filtration Rate 63 mL/min (>60); Est Glom Filt Rate - Afr Amer 77 mL/min (>60); Estimated Creatinine Clearance 57.31 ml/min; Glucose 177 mg/dL (74-106); Magnesium 2.2 mg/dL (1.6-2.6); Potassium 3.7 mmol/L (3.5-5.1); Sodium Level 138 mmol/L (136-145)
[2020-02-05 06:35] LABS: BNP,B-Type NATRIURETIC PEPTIDE 1040.4 pg/mL (0-100)
[2020-02-05 06:42] LABS: Phosphorus 3.8 mg/dL (2.5-4.9)
[2020-02-05] MEDS: Furosemide 40 MG/4 ML Vial IV ×2 (08:07→17:27)
[2020-02-05] MEDS: 0.9% Saline Lock 10 ML Syringe IV ×2 (08:07→17:28)
--- NOTE | 2020-02-05 08:28 | PCM.CON.CC ---
Problem List (1) Acute exacerbation of CHF (congestive heart failure) Status: Chronic Qualifiers: Heart failure type: diastolic Qualified Code(s): I50.33 - Acute on chronic diastolic (congestive) heart failure (2) Acute respiratory failure Status: Acute Qualifiers: Respiratory failure complication: hypoxia Qualified Code(s): J96.01 - Acute respiratory failure with hypoxia (3) Stage 3 severe COPD by GOLD classification Status: Chronic Comment: FEV1 51% of predicted (4) Dilation of thoracic aorta Status: Chronic (5) Palpitations Status: Chronic Comment: Holter had revealed a 10 beat run of SVT and a 5 beat run of nonsustained V. tach. No beta-antony at this time due to resting bradycardia. Patient has not had any palpitations in the last 2 weeks. We will monitor this. (6) History of AAA (abdominal aortic aneurysm) repair Status: Chronic (7) Pulmonary fibrosis Status: Chronic (8) Stage 2 moderate COPD by GOLD classification Status: Chronic (9) Tobacco abuse Status: Chronic (10) Overweight (BMI 25.0-29.9) Status: Chronic (11) CKD (chronic kidney disease) Status: Chronic Qualifiers: Chronic kidney disease stage: stage 3 (moderate) Qualified Code(s): N18.3 - Chronic kidney disease, stage 3 (moderate) (12) GERD (gastroesophageal reflux disease) Status: Chronic Qualifiers: Esophagitis presence: esophagitis presence not specified Qualified Code(s): K21.9 - Gastro-esophageal reflux disease without esophagitis Reason for Consult Date of Consultation: 02/05/20 Reason for Consultation: Respiratory failure History of Present Illness: The patient is a 69 year old M, with past medical history listed below and well-known to me from the outpatient office, who presented to [facility] on 02/05/2020 with complaints of progressive shortness of breath despite prednisone and antibiotics as an outpatient. Patient reportedly had had a telemedicine visit with my nurse practitioner secondary to shortness of breath. Patient gone to an urgent care last week he was placed on prednisone and doxycycline. Patient was on a tapering dose of prednisone and continued to get worse. Patient does have a nebulizer machine at home and had attempted repeated treatments without improvement. Patient had reported orthopnea. In the ER, patient was given multiple aerosol treatments with minimal improvement. Chest x-ray showed patchy bilateral infiltrates. There was some concern for COVID-19, but patient was initiated on BiPAP. Patient was also placed on empiric antibiotics, Solu-Medrol and transported to the intensive care unit with possible need for intubation. Patient was transported on a nonrebreather and had reported significant worsening in his respiratory status. In the ICU, patient was placed back on BiPAP therapy with improvement in overall status. Patient denied any chest pain, abdominal pain, nausea or vomiting. Patient had a cough productive of frothy white sputum recently. Patient had not reported any lower extremity edema. Patient reports that he has had angioedema in the past associated with LASHONDA inhibitor's and this does not feel like that. Patient does not believe the prednisone did that much. Review of systems otherwise negative from a constitutional, HEENT, respiratory, cardiovascular, GI, genitourinary, musculoskeletal, skin, neurologic, psychiatric and hematologic system unless stated above. Past Medical History Past Medical History (Chronic Problems): Chronic Problems (Last Reviewed 01/31/20 @ 07:51 by FIDELINA Wild) Acute exacerbation of CHF (congestive heart failure) (Chronic) Stage 3 severe COPD by GOLD classification (Chronic) FEV1 51% of predicted Dilation of thoracic aorta (Chronic) Palpitations (Chronic) Holter had revealed a 10 beat run of SVT and a 5 beat run of nonsustained V. tach. No beta-antony at this time due to resting bradycardia. Patient has not had any palpitations in the last 2 weeks. We will monitor this. Essential hypertension (Chronic) History of AAA (abdominal aortic aneurysm) repair (Chronic) Pulmonary fibrosis (Chronic) Stage 2 moderate COPD by GOLD classification (Chronic) Dizziness (Chronic) Appears to be due to vertigo. He is responding well to meclizine. We will go down further on lisinopril to see if there is any orthostatic component to it. Advised patient to ask PCP for further referral to neurology or ENT if felt appropriate by PCP. Tobacco abuse (Chronic) Dyspnea (Chronic) Chest pain (Chronic) Overweight (BMI 25.0-29.9) (Chronic) CKD (chronic kidney disease) (Chronic) Chronic abdominal pain (Chronic) GERD (gastroesophageal reflux disease) (Chronic) Medical History: Medical History (Last Reviewed 01/31/20 @ 07:51 by FIDELINA Wild) Palpitations (Chronic) R00.2 Holter had revealed a 10 beat run of SVT and a 5 beat run of nonsustained V. tach. No beta-antony at this time due to resting bradycardia. Patient has not had any palpitations in the last 2 weeks. We will monitor this. 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 He is responding well to meclizine. We will go down further on lisinopril to see if there is any orthostatic component to it. Advised patient to ask PCP for further referral to neurology or ENT if felt appropriate by PCP. Tobacco abuse (Chronic) Z72.0 Dyspnea (Chronic) R06.00 Chest pain (Chronic) R07.9 Overweight (BMI 25.0-29.9) (Chronic) E66.3 CKD (chronic kidney disease) (Chronic) N18.9 Chronic abdominal pain (Chronic) R10.9, G89.29 GERD (gastroesophageal reflux disease) (Chronic) K21.9 Depressive disorder F32.9 Essential hypertension I10 Hiatal hernia K44.9 Acute kidney injury (Resolved) N17.9 Aneurysm of infrarenal abdominal aorta (Resolved) I71.4 Bradycardia (Resolved) R00.1 Cephalgia (Resolved) R51 Myocardial infarct, old I25.2 Symptomatic bradycardia (Resolved) R00.1 Testicular cancer (Resolved) C62.90 Allergies LASHONDA Inhibitors Allergy (Severe, Verified 02/05/20 01:57) Angioedema lisinopril Allergy (Severe, Verified 02/05/20 01:57) Angioedema Home Medications: Ambulatory Orders Medication Instructions Recorded fluoxetine 20 mg capsule 20 mg PO BID cap 04/23/19 gabapentin 400 mg capsule 400 mg PO TID cap 04/23/19 melatonin 10 mg capsule 10 mg PO QHS 04/23/19 nitroglycerin 0.4 mg sublingual 0.4 mg SUBLINGUAL Q5-15M PRN 04/23/19 tablet rivastigmine 1 patch TRANSDERMAL DAILY 04/23/19 Atorvastatin Calcium [Lipitor] 10 mg PO DAILY 04/27/19 Pantoprazole Sodium [Protonix] 40 mg PO DAILY 07/05/19 furosemide 20 mg tablet 20 mg PO DAILY tab 12/03/19 mirtazapine 15 mg tablet 15 mg PO DAILY tab 12/03/19 potassium chloride 10 mEq 10 meq PO DAILY #30 tab 12/03/19 tablet,extended release doxycycline hyclate 100 mg tablet 100 mg PO BID 01/30/20 glycopyrrolate 9 mcg-formoterol 2 inh INHALATION QAM AND QPM #1 inh 01/31/20 4.8 mcg HFA aerosol inhaler Surgical History: Surgical History (Last Reviewed 01/31/20 @ 07:51 by Irene Aguirre NP-C) History of AAA (abdominal aortic aneurysm) repair (Chronic) Z98.890 History of AAA (abdominal aortic aneurysm) repair Z98.890 History of arthroscopic knee surgery Z98.890 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 Surgical History: - - Left testicular removal, bilateral knee arthroscopic surgery, tonsillectomy, left wrist surgery, AAA repair, left eye corneal transplant. Psychiatric History: Anxiety, Depression Smoking Status: Current every day smoker Tobacco Use: Cigars - *Family History Maternal Family History: Family History (Last Reviewed 01/31/20 @ 07:51 by FIDELINA Wild) Father Cancer AAA (abdominal aortic aneurysm) Grandfather AAA (abdominal aortic aneurysm) Uncle AAA (abdominal aortic aneurysm) History Items: Heart Disease Paternal Family History: Family History (Last Reviewed 01/31/20 @ 07:51 by Irene Aguirre EXAMINATION PROCTOR-C) Father Cancer AAA (abdominal aortic aneurysm) Grandfather AAA (abdominal aortic aneurysm) Uncle AAA (abdominal aortic aneurysm) History Items: Heart Disease Review of Systems Comment: See HPI Patient Problems: Active and Suspected Problems (Last Reviewed 01/31/20 @ 07:51 by Irene Aguirre EXAMINATION PROCTOR-C) Acute respiratory failure (Acute) Elevated troponin (Acute) COPD with acute exacerbation (Acute) Lower respiratory tract infection (Acute) Suspected severe acute respiratory syndrome coronavirus 2 (SARS-CoV-2) infection (Acute) Objective: All imaging was personally reviewed. Patient does have a CT scan of the chest showing bilateral effusions, emphysematous and fibrotic changes with interstitial thickening. No cavitary lesions were noted. Patient did have some increased mediastinal lymphadenopathy compared to previous. Patient has not had a recent echocardiogram, but did have a stress test showing preserved ejection fraction in the past. Patient's last pulmonary function test showed an FEV1 of 51% of predicted. - Physical Exam Vitals/I&O's: Vital Signs Temp Pulse Resp BP Pulse Ox 36.4 C L 88 19 H 148/81 H 97 02/05/20 08:00 02/05/20 08:00 02/05/20 08:00 02/05/20 08:00 02/05/20 08:00 Oxygen Flow Rate (L/min) 3 Oxygen Delivery Method Nasal Cannula Weight: 75.6 kg Body Mass Index (BMI) 25.3 Intake and Output for Last 24 Hours 02/03/20 02/04/20 02/05/20 23:59 23:59 23:59 Intake Total 50 / 50 Output Total 0 / 0 Balance 50 / 50 General: Alert, Oriented x3, Cooperative, No apparent distress - On BiPAP therapy, - - Mild conversational dyspnea on BiPAP therapy HEENT: Atraumatic, PERRLA, EOMI, Normocephalic, - - No scleral icterus or injection noted Oral: Moist Mucosa, No Gingival or Mucosal Lesions/ Ulcerations Neck: Supple, No Nodes, Trachea Midline, JVD, Right Lungs: No rhonchi, No wheeze, Diminished, Rales - Bilateral Cardiovascular: Regular rate, Regular Rhythm, Normal S1, Normal S2, No murmurs, No rub noted, No Gallop Abdomen: Bowel Sounds Present, Soft, Non Tender, Non-Distended Extremities: No clubbing, No cyanosis, No edema, Capillary Refill Less than 3 Seconds Skin: No rashes, No breakdown Musculoskeletal: No Tenderness to Palpation of Joints or Extremities Lymphatic: No Cervical, Supraclavicular, or Inguinal Adenopathy Neurological: Cranial nerves II-XII grossly intact, Neuro grossly intact, Motor Exam 5/5 strength throughout Psych/Mental Status: Alert and oriented to time, place, person, mood and affect Microbiology Past 72 Hours 02/05/20 03:42 Mucosa - Nasopharyngeal Respiratory Panel (PCR) - Final 02/05/20 02:15 Mucosa - Nasopharyngeal Influenza Types A,B Direct FA ([facility]) - Final Laboratory Results 02/05/20 02:10: WBC 11.7 H, RBC 4.30 L, Hgb 13.0, Hct 40.7, MCV 94.7 H, MCH 30.2, MCHC 31.9 L, RDW Std Deviation 59.4 H, RDW Coeff of Karen 17.3 H, Plt Count 265, MPV 10.2, Immature Gran % (Auto) 2.500 H, Neut % (Auto) 58.1, Lymph % (Auto) 26.7, Hamblen % (Auto) 8.5, Eos % (Auto) 3.6, Baso % (Auto) 0.6, Absolute Neuts (auto) 6.8, Absolute Lymphs (auto) 3.12, Nucleated RBC % 0.2 02/05/20 02:10: Sodium 138, Potassium 3.8, Chloride 103, Carbon Dioxide 30.0, Anion Gap 5, BUN 19 H, Creatinine 1.28, Estim Creat Clear Calc 54.18, Est GFR (MDRD) Af Amer 72, Est GFR (MDRD) Non-Af 59 L, BUN/Creatinine Ratio 14.8, Glucose 112 H, Calcium 8.8, Troponin I 0.095 H 02/05/20 02:10: Lactic Acid 1.3 02/05/20 02:10: B-Natriuretic Peptide 1040.4 H 02/05/20 02:40: Specimen Type HERNÁN, Sample Site R BRACHIAL, VBG pH 7.40, VBG pO2 25, VBG O2 Sat (Calc) 45 L, VBG O2 Content Not Reportable, VBG Base Excess 7 H, POC Mix VBG pCO2 Pt Tmp 50.8, O2 Delivery Device Room Air, Blood Gas Notified Whom ED , Blood Gas Notified Time 246 02/05/20 04:29: COVID-19 (YANCI) Pending 02/05/20 05:40: Sodium 138, Potassium 3.7, Chloride 103, Carbon Dioxide 27.0, Anion Gap 8, BUN 18, Creatinine 1.21, Estim Creat Clear Calc 57.31, Est GFR (MDRD) Af Amer 77, Est GFR (MDRD) Non-Af 63, BUN/Creatinine Ratio 14.9, Glucose 177 H, Calcium 8.7, Magnesium 2.2 04/14/20 05:40: Phosphorus 3.8 02/05/20 05:40: Troponin I 0.040 Current Medications Acetaminophen (Tylenol) 650 mg PO Q6H PRN PRN PRN Reason: Pain Score 1-10/Temp > 100.7 F Albuterol/Ipratropium (Duoneb) 3 ml INHALATION Q4H.RT [facility] Last Admin: 02/05/20 07:12 Dose: 3 ml Documented by: Atorvastatin Calcium (Lipitor) 10 mg PO QHS [facility] Azithromycin (Zithromax) 500 mg PO DAILY [facility] Stop: 02/07/20 10:01 Dextrose (D50w Syringe) 0 gm IV X1 PRN; Protocol PRN Reason: Hypoglycemia Enoxaparin Sodium (Lovenox) 40 mg SC DAILY [facility] Fluoxetine HCl (Prozac) 20 mg PO BID [facility] Furosemide (Lasix) 40 mg IV Q8H [facility] Gabapentin (Neurontin) 400 mg PO Q8H [facility] Glucagon () 1 mg IM .X1 PRN PRN Reason: Hypoglycemia Ceftriaxone Sodium (Rocephin) 1 gm in 50 mls @ 100 mls/hr IV Q24 [facility] Sodium Chloride () 250 mls @ 15 mls/hr IV .[id number] PRN PRN Reason: Saline Flush Sodium Chloride () 250 mls @ 15 mls/hr IV .[id number] PRN PRN Reason: Additional IVPB Infusion Melatonin (Melatonin) 10 mg PO QHS [facility] Methylprednisolone (Solu-Medrol) 40 mg IV Q8H [facility] Mirtazapine (Remeron) 15 mg PO QHS [facility] Morphine Sulfate () 2 mg IV Q3H PRN PRN PRN Reason: Pain Score 6-10/10 Nitroglycerin (Nitrostat) 0.4 mg SUBLINGUAL Q5M PRN PRN Reason: ANGINA Ondansetron HCl (Zofran) 4 mg IV Q8H PRN PRN PRN Reason: NAUSEA/VOMITING Pantoprazole Sodium (Protonix) 40 mg PO DAILY [facility] Potassium Chloride (K-Dur) 10 meq PO DAILY [facility] Rivastigmine (Exelon Patch 4.6mg) 1 patch TD DAILY [facility] Sodium Chloride () 10 - 40 ml IV UD PRN PRN Reason: SALINE FLUSH Last Admin: 02/05/20 08:07 Dose: 20 ml Documented by: Clinical Impression(s) from Imaging Studies Chest X-Ray 02/05/20 02:04 IMPRESSION: Multifocal airspace disease likely infiltrates possible pneumonia. Stable borderline cardiac size and arteriosclerosis. Electronically Signed: Mercedes Matthews MD at 3:21 EDT , Service support , Chest CT 02/05/20 03:15 IMPRESSION: Progression of pulmonary fibrosis since previous examination. Component of congestive heart failure suspected. Mediastinal and right hilar lymphadenopathy, progressive since previous examination. Minimal peripheral airspace opacification, possible mild inflammation superimposed on pulmonary fibrosis. No patchy air space disease or infiltrates are otherwise detected when compared to previous chest x-ray. Electronically Signed: Mercedes Matthews MD at 4:50 EDT , Service support , Assessment/Plan Active and Suspected Problems (Last Reviewed 01/31/20 @ 07:51 by Irene Aguirre, CURLY-C) Acute respiratory failure (Acute) Elevated troponin (Acute) COPD with acute exacerbation (Acute) Lower respiratory tract infection (Acute) Suspected severe acute respiratory syndrome coronavirus 2 (SARS-CoV-2) infection (Acute) RECOMMENDATIONS: 1. Initiate aggressive diuretics 2. Recheck BMP this afternoon. Replete potassium if necessary 3. Hold on any thoracentesis at this time 4. Reasonable to continue antibiotics for 48 hours until culture negative 5. Await COVID testing sent in ER IMPRESSIONS: 1. Acute hypoxic respiratory failure secondary to probable acute on chronic diastolic congestive heart failure Patient had not responded to therapy initially. COVID-19 testing is currently pending. Patient did respond well to BiPAP therapy and since being in the intensive care unit has responded well to diuretic therapy. This may be why he did not respond to steroids and antibiotics initially. 2. Stage III COPD Patient currently on bronchodilators and steroids at this time. Clinical suspicion at this may be secondary to congestive heart failure more than COPD exacerbation, which would explain why he did not respond to steroids and antibiotics. We will continue these for now pending culture results. Anticipate going to baseline medications in 24 to 48 hours pending clinical response. 3. Hypertension/chronic kidney disease Complicates care, management, recovery and prognosis. Okay to continue with baseline medications from my perspective. TIME: 33 minutes critical care time spent addressing patient's acute hypoxic respiratory failure, COPD, review of all data and collaboration with care team (8 AM to 10 AM) [phone]: [id number] Critical care first hour
--- NOTE | 2020-02-05 10:44 | CASEMGMT ---
RN CM Assessment Note Presentation: CHF, COPD, COVID-19 testing pending Attempted to contact pt in room x 2. Unable to participate in assessment. Call to - intro role of CM and purpose of RN CM assessment to via phone.. Demographics, PCP and Pharmacy verified. states pt is very independent, no care needs. Pt is ambulating in room in ICU. PCP: Dr. Flores Specialists: Dr. Mcgill, pulmonology; Dr. Emerson, cardiology Preferred Pharmacy: [facility] Insurance: [email or web address] [facility] Prescription Benefit: yes. or family able to get medications for pt LNOK : , Rosalind Wolfe Living Arrangements: Lives in one story home with . Has ability to self isolate in home if needed. is able to assist with any care needs, groceries and meal planning. Per , pt has not had care needs prior to admission. Transportation: pt or can drive DME: nebulizer only HHC/SNF: none Patient DC goals: home DC PLAN: anticipate home on dc. Will evaluate for Home oxygen needs. RN CM advised to contact cm for any concerns/needs that may arise. Dami COLLIER RN ACM
[2020-02-05] MEDS: FLUoxetine 20 MG Capsule PO ×2 (11:00→21:22)
[2020-02-05] MEDS: Pantoprazole Sodium 40 MG Tablet PO (11:00)
[2020-02-05] MEDS: Enoxaparin 40 MG/0.4 ML Syringe SC (11:00)
[2020-02-05] MEDS: Gabapentin 400 MG Capsule PO ×2 (11:00→17:28)
[2020-02-05 18:01] LABS: Anion Gap 7 (5-15); BUN 25 mg/dL (7-18); BUN/Creat Ratio 17.6 RATIO (10-20); Calcium,Total 8.6 mg/dL (8.5-10.1); Chloride 99 mmol/L (98-107); Creatinine, Serum 1.42 mg/dL (0.70-1.30); EST Glomerular Filtration Rate 53 mL/min (>60); Est Glom Filt Rate - Afr Amer 64 mL/min (>60); Estimated Creatinine Clearance 48.84 ml/min; Glucose 211 mg/dL (74-106); Potassium 3.8 mmol/L (3.5-5.1); Sodium Level 135 mmol/L (136-145)
[2020-02-05] MEDS: Atorvastatin Calcium 10 MG Tablet PO (21:22)
[2020-02-05] MEDS: MELATONIN 10 MG TABLET PO (21:22)
[2020-02-05] MEDS: Mirtazapine 15 MG Tablet PO (21:22)
[2020-02-06] VITALS (23 sets, daily range): BP systolic 119–154; BP diastolic 56–92; PULSE 69–96; RESP 15–22; TEMP 36.8–36.9; O2SAT 90–99
--- NOTE | 2020-02-06 00:05 | CPS ---
pt unable to tolerate BiPAP
[2020-02-06] MEDS: Furosemide 40 MG/4 ML Vial IV (01:45)
[2020-02-06] MEDS: Gabapentin 400 MG Capsule PO ×3 (01:45→16:58)
[2020-02-06] MEDS: 0.9% Saline Lock 10 ML Syringe IV (01:52)
[2020-02-06] MEDS: Ipratropium/Albuterol Sulfate 3 ML AMPUL.NEB INHALATION ×6 (03:20→22:52)
--- NOTE | 2020-02-06 04:13 | EKG12_ITS ---
Test Reason : EKG CHANGES Blood Pressure : / mmHG Vent. Rate : 078 BPM Atrial Rate : 234 BPM P-R Int : 000 ms QRS Dur : 098 ms QT Int : 480 ms P-R-T Axes : 036 -16 250 degrees QTc Int : 547 ms Normal sinus rhythm Voltage criteria for left ventricular hypertrophy T wave abnormality, consider anterolateral ischemia Prolonged QT Abnormal ECG When compared with ECG of 05-FEB-2020 02:22, MANUAL COMPARISON REQUIRED, DATA IS UNCONFIRMED Confirmed by KRISTINA BONNER ([id number]), film or videotape editor OCHOA DONNELLY ([id number]) on 02/07/2020 10:35:51 AM Referred By: Musa Pierce Confirmed By:KRISTINA BONNER
[2020-02-06 07:02] LABS: Absolute Lymphocyte Count 0.85 X10^3/uL (0.83-4.51); Basophil# 0.02 X10^3/uL; Basophil% 0.1 % (0-1); Hematocrit 37.7 % (40-54); Hemoglobin 12.3 g/dL (13.0-16.5); Lymphocyte # 0.85 X10^3/ul (4.0); Lymphocyte % 4.8 % (19-41); Mean Corp Hgb Conc 32.6 g/dL (32-36); Mean Corpuscular Hgb 30.3 pg (27.0-32.0); Mean Corpuscular Volume 92.9 fL (80-94); Mean Platelet Vol. 10.6 fl (6.2-12.0); Monocyte# 0.49 X10^3/uL; Monocyte% 2.8 % (0-10); NRBC Flagged by Analyzer 0 % (0-5); Neutrophil # 15.99 X10^3/uL (2.7-7.7); Neutrophil % 91.2 % (47-70); Platelet Count 215 K/mm3 (150-450); RBC Distribution Width CV 17.4 % (11.6-14.6); RBC Distribution Width SD 57.3 fl (35.1-43.9); Red Blood Count 4.06 M/mm3 (4.6-6.2); White Blood Count 17.6 K/mm3 (4.4-11.0)
[2020-02-06 07:15] LABS: Anion Gap 7 (5-15); BUN 31 mg/dL (7-18); BUN/Creat Ratio 20.8 RATIO (10-20); Calcium,Total 8.6 mg/dL (8.5-10.1); Chloride 97 mmol/L (98-107); Creatinine, Serum 1.49 mg/dL (0.70-1.30); EST Glomerular Filtration Rate 50 mL/min (>60); Est Glom Filt Rate - Afr Amer 60 mL/min (>60); Estimated Creatinine Clearance 46.54 ml/min; Glucose 194 mg/dL (74-106); Magnesium 2.4 mg/dL (1.6-2.6); Phosphorus 4.1 mg/dL (2.5-4.9); Potassium 3.8 mmol/L (3.5-5.1); Sodium Level 136 mmol/L (136-145)
--- NOTE | 2020-02-06 07:52 | PCM.PN.INT ---
Subjective: Patient did extremely well overnight. Patient responded abruptly to Lasix therapy and was able to be weaned from BiPAP early in the day yesterday. Patient was on room air for a short period of time, but did require 2 L with sleep. Patient continues to report a chest heaviness without radiation. Patient does seem Dr. Emerson as an outpatient General: Alert, Oriented x3, Cooperative, No apparent distress, - - No conversational dyspnea. HEENT: Atraumatic, PERRLA, EOMI, Normocephalic, - - No scleral icterus or injection noted Oral: Moist Mucosa, No Gingival or Mucosal Lesions/ Ulcerations Neck: Supple, No JVD, No Nodes, Trachea Midline Lungs: No rhonchi, No wheeze, No rales, Diminished, - - Symmetric expansion. No dullness to percussion. Cardiovascular: Regular rate, Regular Rhythm, Normal S1, Normal S2, No murmurs, No rub noted, No Gallop Abdomen: Bowel Sounds Present, Soft, Non Tender, Non-Distended Extremities: No clubbing, No cyanosis, No edema, Capillary Refill Less than 3 Seconds Skin: No rashes, No breakdown Musculoskeletal: No Tenderness to Palpation of Joints or Extremities Lymphatic: No Cervical, Supraclavicular, or Inguinal Adenopathy Neurological: Cranial nerves II-XII grossly intact, Neuro grossly intact, Motor Exam 5/5 strength throughout Psych/Mental Status: Alert and oriented to time, place, person, mood and affect Vital Signs Temp Pulse Resp BP Pulse Ox 36.9 C 91 18 119/69 96 02/06/20 00:00 02/06/20 07:19 02/06/20 07:19 02/06/20 06:00 02/06/20 07:19 Oxygen Flow Rate (L/min) 2 Oxygen Delivery Method Room Air Weight: 73.5 kg Body Mass Index (BMI) 25.3 Intake and Output for Last 24 Hours 02/04/20 02/05/20 02/06/20 23:59 23:59 23:59 Intake Total 766 / 766 714 / 714 Output Total 1250 / 1250 Balance -484 / -484 714 / 714 Labs (Last 48 Hours) 02/05/20 02/05/20 02/05/20 02:10 02:10 02:10 WBC 11.7 H RBC 4.30 L Hgb 13.0 Hct 40.7 MCV 94.7 H MCH 30.2 MCHC 31.9 L RDW Std Deviation 59.4 H RDW Coeff of Karen 17.3 H Plt Count 265 MPV 10.2 Immature Gran % (Auto) 2.500 H Neut % (Auto) 58.1 Lymph % (Auto) 26.7 [place] % (Auto) 8.5 Eos % (Auto) 3.6 Baso % (Auto) 0.6 Absolute Neuts (auto) 6.8 Absolute Lymphs (auto) 3.12 Nucleated RBC % 0.2 Specimen Type Sample Site VBG pH VBG pO2 VBG O2 Sat (Calc) VBG O2 Content VBG Base Excess POC Mix VBG pCO2 Pt Tmp O2 Delivery Device Blood Gas Notified Whom Blood Gas Notified Time Sodium 138 Potassium 3.8 Chloride 103 Carbon Dioxide 30.0 Anion Gap 5 BUN 19 H Creatinine 1.28 Estim Creat Clear Calc 54.18 Est GFR (MDRD) Af Amer 72 Est GFR (MDRD) Non-Af 59 L BUN/Creatinine Ratio 14.8 Glucose 112 H Lactic Acid 1.3 Calcium 8.8 Phosphorus Magnesium Troponin I 0.095 H B-Natriuretic Peptide COVID-19 (YANCI) 02/05/20 02/05/20 02/05/20 02:10 02:40 04:29 WBC RBC Hgb Hct MCV MCH MCHC RDW Std Deviation RDW Coeff of Karen Plt Count MPV Immature Gran % (Auto) Neut % (Auto) Lymph % (Auto) [place] % (Auto) Eos % (Auto) Baso % (Auto) Absolute Neuts (auto) Absolute Lymphs (auto) Nucleated RBC % Specimen Type HERNÁN Sample Site R BRACHIAL VBG pH 7.40 VBG pO2 25 VBG O2 Sat (Calc) 45 L VBG O2 Content Not Reportable VBG Base Excess 7 H POC Mix VBG pCO2 Pt Tmp 50.8 O2 Delivery Device Room Air Blood Gas Notified Whom ED MD Blood Gas Notified Time 246 Sodium Potassium Chloride Carbon Dioxide Anion Gap BUN Creatinine Estim Creat Clear Calc Est GFR (MDRD) Af Amer Est GFR (MDRD) Non-Af BUN/Creatinine Ratio Glucose Lactic Acid Calcium Phosphorus Magnesium Troponin I B-Natriuretic Peptide 1040.4 H COVID-19 (YANCI) Pending 02/05/20 02/05/20 02/05/20 05:40 05:40 05:40 WBC RBC Hgb Hct MCV MCH MCHC RDW Std Deviation RDW Coeff of Karen Plt Count MPV Immature Gran % (Auto) Neut % (Auto) Lymph % (Auto) [place] % (Auto) Eos % (Auto) Baso % (Auto) Absolute Neuts (auto) Absolute Lymphs (auto) Nucleated RBC % Specimen Type Sample Site VBG pH VBG pO2 VBG O2 Sat (Calc) VBG O2 Content VBG Base Excess POC Mix VBG pCO2 Pt Tmp O2 Delivery Device Blood Gas Notified Whom Blood Gas Notified Time Sodium 138 Potassium 3.7 Chloride 103 Carbon Dioxide 27.0 Anion Gap 8 BUN 18 Creatinine 1.21 Estim Creat Clear Calc 57.31 Est GFR (MDRD) Af Amer 77 Est GFR (MDRD) Non-Af 63 BUN/Creatinine Ratio 14.9 Glucose 177 H Lactic Acid Calcium 8.7 Phosphorus 3.8 Magnesium 2.2 Troponin I 0.040 B-Natriuretic Peptide COVID-19 (YANCI) 02/05/20 02/05/20 02/06/20 08:15 17:30 06:50 WBC 17.6 H RBC 4.06 L Hgb 12.3 L Hct 37.7 L MCV 92.9 MCH 30.3 MCHC 32.6 RDW Std Deviation 57.3 H RDW Coeff of Karen 17.4 H Plt Count 215 MPV 10.6 Immature Gran % (Auto) 1.100 H Neut % (Auto) 91.2 H Lymph % (Auto) 4.8 L [place] % (Auto) 2.8 Eos % (Auto) 0.0 Baso % (Auto) 0.1 Absolute Neuts (auto) 16.0 H Absolute Lymphs (auto) 0.85 Nucleated RBC % 0 Specimen Type Sample Site VBG pH VBG pO2 VBG O2 Sat (Calc) VBG O2 Content VBG Base Excess POC Mix VBG pCO2 Pt Tmp O2 Delivery Device Blood Gas Notified Whom Blood Gas Notified Time Sodium 135 L Potassium 3.8 Chloride 99 Carbon Dioxide 29.0 Anion Gap 7 BUN 25 H Creatinine 1.42 H Estim Creat Clear Calc 48.84 Est GFR (MDRD) Af Amer 64 Est GFR (MDRD) Non-Af 53 L BUN/Creatinine Ratio 17.6 Glucose 211 H Lactic Acid Calcium 8.6 Phosphorus Magnesium Troponin I 0.033 B-Natriuretic Peptide COVID-19 (YANCI) 02/06/20 06:50 WBC RBC Hgb Hct MCV MCH MCHC RDW Std Deviation RDW Coeff of Karen Plt Count MPV Immature Gran % (Auto) Neut % (Auto) Lymph % (Auto) [place] % (Auto) Eos % (Auto) Baso % (Auto) Absolute Neuts (auto) Absolute Lymphs (auto) Nucleated RBC % Specimen Type Sample Site VBG pH VBG pO2 VBG O2 Sat (Calc) VBG O2 Content VBG Base Excess POC Mix VBG pCO2 Pt Tmp O2 Delivery Device Blood Gas Notified Whom Blood Gas Notified Time Sodium 136 Potassium 3.8 Chloride 97 L Carbon Dioxide 32.0 Anion Gap 7 BUN 31 H Creatinine 1.49 H Estim Creat Clear Calc 46.54 Est GFR (MDRD) Af Amer 60 Est GFR (MDRD) Non-Af 50 L BUN/Creatinine Ratio 20.8 H Glucose 194 H Lactic Acid Calcium 8.6 Phosphorus 4.1 Magnesium 2.4 Troponin I B-Natriuretic Peptide COVID-19 (YANCI) Microbiology 02/05/20 03:42 Mucosa - Nasopharyngeal Respiratory Panel (PCR) - Final 02/05/20 02:15 Mucosa - Nasopharyngeal Influenza Types A,B Direct FA (NYASIA) - Final Medical Necessity - Tobacco Use Smoking Status: Current every day smoker Tobacco Use: Cigars Assessment/Plan All Active Problems (Last Reviewed 01/31/20 @ 07:51 by Irene Aguirre, APPRAISER LAND-C) Acute respiratory failure (Acute) Elevated troponin (Acute) COPD with acute exacerbation (Acute) Lower respiratory tract infection (Acute) Suspected severe acute respiratory syndrome coronavirus 2 (SARS-CoV-2) infection (Acute) Fatigue (Acute) Angioedema due to angiotensin converting enzyme inhibitor (LASHONDA-I) (Resolved) Respiratory failure (Resolved) Acute kidney injury (Resolved) Aneurysm of infrarenal abdominal aorta (Resolved) Bradycardia (Resolved) Cephalgia (Resolved) Symptomatic bradycardia (Resolved) Testicular cancer (Resolved) RECOMMENDATIONS: 1. Transition to p.o. Lasix therapy twice daily 2. Discontinue antibiotics/steroids 3. Hold on any thoracentesis at this time 4. Await COVID testing sent in ER 5. Okay to leave the intensive care unit from my perspective IMPRESSIONS: 1. Acute hypoxic respiratory failure secondary to probable acute on chronic diastolic congestive heart failure Patient had not responded to therapy initially. COVID-19 testing is currently pending. Patient responded well to BiPAP on arrival to the intensive care unit. However, a few hours after receiving Lasix dosing, patient's oxygen requirements improved to the point that this was not required. Patient has been on room air intermittently. These findings are not consistent with an acute COPD exacerbation, so steroids and antibiotics will be discontinued. Patient's COVID testing should be back later today. We will transition over to p.o. Lasix at twice home dosing for now. Okay to leave the intensive care unit from my perspective. 2. Stage III COPD Patient currently on bronchodilators . Clinical suspicion at this may be secondary to congestive heart failure more than COPD exacerbation, which would explain why he did not respond to steroids and antibiotics. We will continue these for now pending culture results. Clinical course is not suggestive of a COPD exacerbation, so steroids will be discontinued. Okay to continue with bronchodilators 3. Hypertension/chronic kidney disease Complicates care, management, recovery and prognosis. Okay to continue with baseline medications from my perspective. Inpatient E&M: [id number] [facility] L3
[2020-02-06] MEDS: Furosemide 20 MG Tablet PO ×2 (10:05→16:58)
[2020-02-06] MEDS: Enoxaparin 40 MG/0.4 ML Syringe SC (10:05)
[2020-02-06] MEDS: FLUoxetine 20 MG Capsule PO ×2 (10:05→21:03)
[2020-02-06] MEDS: Pantoprazole Sodium 40 MG Tablet PO (10:05)
--- NOTE | 2020-02-06 13:04 | EKGRS_ITS ---
Test Reason : CHEST PAIN Blood Pressure : / mmHG Vent. Rate : 089 BPM Atrial Rate : 089 BPM P-R Int : 114 ms QRS Dur : 094 ms QT Int : 408 ms P-R-T Axes : 010 -17 201 degrees QTc Int : 496 ms Normal sinus rhythm Left ventricular hypertrophy with repolarization abnormality Prolonged QT Abnormal ECG No previous ECGs available Confirmed by KIMBERLEY BRAXTON, SHAISTA ([id number]), editor farm journal OCHOA DONNELLY ([id number]) on 02/12/2020 9:18:33 AM Referred By: Musa Pierce Confirmed By:LAURA CHU MD
[2020-02-06] MEDS: Mirtazapine 15 MG Tablet PO (21:03)
[2020-02-06] MEDS: MELATONIN 10 MG TABLET PO (21:03)
[2020-02-06] MEDS: Atorvastatin Calcium 10 MG Tablet PO (21:03)
[2020-02-07] VITALS (20 sets, daily range): BP systolic 146–156; BP diastolic 81–95; PULSE 76–101; RESP 16–20; TEMP 36.3–36.8; O2SAT 86–100
[2020-02-07] MEDS: Gabapentin 400 MG Capsule PO ×3 (01:20→17:20)
[2020-02-07] MEDS: Ipratropium/Albuterol Sulfate 3 ML AMPUL.NEB INHALATION ×6 (02:24→23:12)
[2020-02-07 06:00] LABS: Absolute Lymphocyte Count 2.62 X10^3/uL (0.83-4.51); Absolute Neutrophil Count 13.8 X10^3/uL (2.0-7.7); Basophil# 0.03 X10^3/uL; Basophil% 0.2 % (0-1); Eosinophil# 0.05 X10^3/uL; Eosinophils% 0.3 % (0-5); Hematocrit 36.4 % (40-54); Hemoglobin 11.8 g/dL (13.0-16.5); Lymphocyte # 2.62 X10^3/ul (4.0); Lymphocyte % 14.9 % (19-41); Mean Corp Hgb Conc 32.4 g/dL (32-36); Mean Corpuscular Hgb 30.3 pg (27.0-32.0); Mean Corpuscular Volume 93.6 fL (80-94); Mean Platelet Vol. 10.6 fl (6.2-12.0); Monocyte# 0.88 X10^3/uL; NRBC Flagged by Analyzer 0 % (0-5); Neutrophil # 13.77 X10^3/uL (2.7-7.7); Neutrophil % 78.4 % (47-70); Platelet Count 206 K/mm3 (150-450); RBC Distribution Width CV 17.9 % (11.6-14.6); RBC Distribution Width SD 59.5 fl (35.1-43.9); Red Blood Count 3.89 M/mm3 (4.6-6.2); White Blood Count 17.6 K/mm3 (4.4-11.0)
[2020-02-07 06:12] LABS: Anion Gap 4 (5-15); BUN 28 mg/dL (7-18); BUN/Creat Ratio 24.6 RATIO (10-20); Calcium,Total 8.4 mg/dL (8.5-10.1); Chloride 101 mmol/L (98-107); Creatinine, Serum 1.14 mg/dL (0.70-1.30); EST Glomerular Filtration Rate 68 mL/min (>60); Est Glom Filt Rate - Afr Amer 82 mL/min (>60); Estimated Creatinine Clearance 60.83 ml/min; Glucose 136 mg/dL (74-106); Magnesium 2.5 mg/dL (1.6-2.6); Phosphorus 3.6 mg/dL (2.5-4.9); Potassium 3.8 mmol/L (3.5-5.1); Sodium Level 138 mmol/L (136-145)
--- NOTE | 2020-02-07 07:05 | PN_ITS ---
Subjective: Patient has done well over the last 24 hours. No respiratory complaints have been reported, but patient did complain of chest pressure yesterday. EKG and troponins were unremarkable. Patient does follow with [facility] at baseline. Patient denies any productive cough at this time. General: Alert, Oriented x3, Cooperative, No apparent distress, Well developed, Well nourished, - - Speaking in full sentences. HEENT: Atraumatic, PERRLA, EOMI, Normocephalic, - - No scleral icterus or injection noted Oral: Moist Mucosa, No Gingival or Mucosal Lesions/ Ulcerations Neck: Supple, No JVD, No Nodes, Trachea Midline Lungs: No rhonchi, No rales, Diminished, Wheezes - Improved with aerosol Cardiovascular: Regular rate, Regular Rhythm, Normal S1, Normal S2, No murmurs, No rub noted, No Gallop Abdomen: Bowel Sounds Present, Soft, Non Tender, Non-Distended Extremities: No clubbing, No cyanosis, No edema, Capillary Refill Less than 3 Seconds Skin: No rashes, No breakdown Musculoskeletal: No Tenderness to Palpation of Joints or Extremities Lymphatic: No Cervical, Supraclavicular, or Inguinal Adenopathy Neurological: Cranial nerves II-XII grossly intact, Neuro grossly intact, Motor Exam 5/5 strength throughout Psych/Mental Status: Alert and oriented to time, place, person, mood and affect Vital Signs Temp Pulse Resp BP Pulse Ox 36.7 C 92 18 146/89 H 93 02/07/20 01:20 02/07/20 06:38 02/07/20 06:38 02/07/20 01:20 02/07/20 06:47 Oxygen Flow Rate (L/min) 2 Oxygen Delivery Method Room Air Weight: 74.5 kg Body Mass Index (BMI) 25.3 Intake and Output for Last 24 Hours 02/05/20 02/06/20 02/07/20 23:59 23:59 23:59 Intake Total 766 / 766 1674 / 2274 840 / 840 Output Total 1250 / 1250 Balance -484 / -484 1674 / 2274 840 / 840 Labs (Last 48 Hours) 02/05/20 02/05/20 02/05/20 04:29 08:15 17:30 WBC RBC Hgb Hct MCV MCH MCHC RDW Std Deviation RDW Coeff of Karen Plt Count MPV Immature Gran % (Auto) Neut % (Auto) Lymph % (Auto) [place] % (Auto) Eos % (Auto) Baso % (Auto) Absolute Neuts (auto) Absolute Lymphs (auto) Nucleated RBC % Sodium 135 L Potassium 3.8 Chloride 99 Carbon Dioxide 29.0 Anion Gap 7 BUN 25 H Creatinine 1.42 H Estim Creat Clear Calc 48.84 Est GFR (MDRD) Af Amer 64 Est GFR (MDRD) Non-Af 53 L BUN/Creatinine Ratio 17.6 Glucose 211 H Calcium 8.6 Phosphorus Magnesium Troponin I 0.033 COVID-19 (YANCI) Not Detected 02/06/20 02/06/20 02/06/20 06:50 06:50 13:50 WBC 17.6 H RBC 4.06 L Hgb 12.3 L Hct 37.7 L MCV 92.9 MCH 30.3 MCHC 32.6 RDW Std Deviation 57.3 H RDW Coeff of Karen 17.4 H Plt Count 215 MPV 10.6 Immature Gran % (Auto) 1.100 H Neut % (Auto) 91.2 H Lymph % (Auto) 4.8 L [place] % (Auto) 2.8 Eos % (Auto) 0.0 Baso % (Auto) 0.1 Absolute Neuts (auto) 16.0 H Absolute Lymphs (auto) 0.85 Nucleated RBC % 0 Sodium 136 Potassium 3.8 Chloride 97 L Carbon Dioxide 32.0 Anion Gap 7 BUN 31 H Creatinine 1.49 H Estim Creat Clear Calc 46.54 Est GFR (MDRD) Af Amer 60 Est GFR (MDRD) Non-Af 50 L BUN/Creatinine Ratio 20.8 H Glucose 194 H Calcium 8.6 Phosphorus 4.1 Magnesium 2.4 Troponin I 0.031 COVID-19 (YANCI) 02/07/20 02/07/20 05:45 05:45 WBC 17.6 H RBC 3.89 L Hgb 11.8 L Hct 36.4 L MCV 93.6 MCH 30.3 MCHC 32.4 RDW Std Deviation 59.5 H RDW Coeff of Karen 17.9 H Plt Count 206 MPV 10.6 Immature Gran % (Auto) 1.200 H Neut % (Auto) 78.4 H Lymph % (Auto) 14.9 L [place] % (Auto) 5.0 Eos % (Auto) 0.3 Baso % (Auto) 0.2 Absolute Neuts (auto) 13.8 H Absolute Lymphs (auto) 2.62 Nucleated RBC % 0 Sodium 138 Potassium 3.8 Chloride 101 Carbon Dioxide 33.0 H Anion Gap 4 L BUN 28 H Creatinine 1.14 Estim Creat Clear Calc 60.83 Est GFR (MDRD) Af Amer 82 Est GFR (MDRD) Non-Af 68 BUN/Creatinine Ratio 24.6 H Glucose 136 H Calcium 8.4 L Phosphorus 3.6 Magnesium 2.5 Troponin I COVID-19 (YANCI) Microbiology 02/05/20 03:42 Mucosa - Nasopharyngeal Respiratory Panel (PCR) - Final 02/05/20 02:15 Mucosa - Nasopharyngeal Influenza Types A,B Direct FA (NYASIA) - Final Medical Necessity - Tobacco Use Smoking Status: Current every day smoker Tobacco Use: Cigars Assessment/Plan All Active Problems (Last Reviewed 01/31/20 @ 07:51 by Irene Aguirre, CURLY-C) Acute respiratory failure (Acute) Elevated troponin (Acute) COPD with acute exacerbation (Acute) Lower respiratory tract infection (Acute) Suspected severe acute respiratory syndrome coronavirus 2 (SARS-CoV-2) infection (Acute) Fatigue (Acute) Angioedema due to angiotensin converting enzyme inhibitor (LASHONDA-I) (Resolved) Respiratory failure (Resolved) Acute kidney injury (Resolved) Aneurysm of infrarenal abdominal aorta (Resolved) Bradycardia (Resolved) Cephalgia (Resolved) Symptomatic bradycardia (Resolved) Testicular cancer (Resolved) RECOMMENDATIONS: 1. Consult cardiology, Re: need for stress test? Recommendations for home diuretics? 2. Walking oximetry 3. Possible discharge later today 4. Okay to follow-up with pulmonary as previously scheduled IMPRESSIONS: 1. Acute hypoxic respiratory failure secondary to probable acute on chronic diastolic congestive heart failure Patient had not responded to therapy initially with antibiotics and steroids. COVID-19 testing is currently pending. Patient responded well to BiPAP on arrival to the intensive care unit. However, a few hours after receiving Lasix dosing, patient's oxygen requirements improved to the point that this was not required. Patient has been on room air intermittently. These find ings are not consistent with an acute COPD exacerbation, so steroids and antibiotics will be discontinued. Patient's COVID testing was negative. We will transition over to p.o. Lasix at twice home dosing for now. Given COVID pandemic, will consult cardiology to see if work-up for chest pain needs to be completed before discharge. Also would like recommendations on diuretic therapy moving forward. Patient sees Dr. Emerson at baseline. 2. Stage III COPD Patient currently on bronchodilators . Clinical suspicion at this may be secondary to congestive heart failure more than COPD exacerbation, which would explain why he did not respond to steroids and antibiotics. We will continue these for now pending culture results. Clinical course is not suggestive of a COPD exacerbation, so steroids will be discontinued. Okay to continue with bronchodilators. Patient can follow-up with pulmonary as previously scheduled 3. Hypertension/chronic kidney disease Complicates care, management, recovery and prognosis. Okay to continue with baseline medications from my perspective. Inpatient E&M: [id number] Subs Hosp L2
--- NOTE | 2020-02-07 09:03 | ECHOD_ITS ---
Reason For Study: DYSPNEA Procedure This was a 2D Doppler, Color Flow transthoracic echocardiogram. Exam performed portable in ICU/CCU. Left Ventricle Normal LV size. possible LV apical thrombus. The estimated ejection fraction is 35 %. Stage 3 diastolic dysfunction. There is moderate to severe global hypokinesis of the left ventricle. Right Ventricle Normal RV size. Normal systolic function. Atria The left atrium is severely enlarged. Normal right atrium. No doppler evidence for ASD. Mitral Valve There is mild mitral annular calcification. There is no mitral valve stenosis. Mild (1+) mitral valve insufficiency. Tricuspid Valve There is no tricuspid stenosis. Moderate (2+) tricuspid valve insufficiency. Pulmonary artery systolic pressure is 75 mmHg. Aortic Valve Trisinus/trileaflet aortic valve. There is no aortic stenosis. Trivial aortic valve insufficiency. Pulmonic Valve There is no pulmonic valvular stenosis. Trivial pulmonic valve insufficiency. Great Vessels Normal aortic root. Pericardium/Pleural Trivial pericardial effusion. MMode/2D Measurements & Calculations LVIDd: 6.5 cm IVSd: 0.99 cm Ao root diam: 4.3 cm LVIDs: 5.5 cm LVPWd: 1.1 cm RVDd: 4.4 cm FS: 14.5 % LAV(MOD-bp): 80.7 ml LA A4 area: 23.7 cm2 LA dimension(2D): 5.0 cm LAV(MOD-bp) Indexed: 43.0 ml/m2 LAV(MOD-sp2): 82.4 ml LAV(MOD-sp4): 77.4 ml RA A4 area: 15.7 cm2 Time Measurements MV dec time: 0.11 sec Doppler Measurements & Calculations MV E max kaushik: 106.1 cm/sec Lat Peak E' Kaushik: 6.6 cm/sec Med Peak E' Kaushik: 5.0 cm/sec MV A max kaushik: 48.4 cm/sec E/E' lat: 16.1 E/E' med: 21.0 MV E/A: 2.2 Ao V2 max: 145.7 cm/sec LV V1 max: 100.0 cm/sec PA V2 max: 124.1 cm/sec Ao max P.5 mmHg LV V1 max P.0 mmHg PI end-d kaushik: 219.0 cm/sec TR max kaushik: 385.7 cm/sec TR max P.4 mmHg Interpretation Summary The estimated ejection fraction is 35 %. There is moderate to severe global hypokinesis of the left ventricle. Stage 3 diastolic dysfunction. The left atrium is severely enlarged. Mild (1+) mitral valve insufficiency. Moderate (2+) tricuspid valve insufficiency. Pulmonary artery systolic pressure is 75 mmHg. Trivial aortic valve insufficiency. Trivial pulmonic valve insufficiency. possible LV apical thrombus Ordering Physician: Nohemy Bradley Referring Physician: SHERRELL QUINONES Performed By: Albertina Damon, PUNEETCS, RVT
[2020-02-07] MEDS: Enoxaparin 40 MG/0.4 ML Syringe SC (10:16)
[2020-02-07] MEDS: FLUoxetine 20 MG Capsule PO ×2 (10:16→21:16)
[2020-02-07] MEDS: Pantoprazole Sodium 40 MG Tablet PO (10:16)
[2020-02-07] MEDS: Furosemide 20 MG Tablet PO ×2 (10:17→17:20)
--- NOTE | 2020-02-07 14:30 | CASEMGMT ---
CHRIST WALKER updated that patient will need home oxygen at discharge. CHRIST WALKER in to discuss home oxygen with patient and provided list of DME companies in-network with insurance. Patient agreeable to [facility]. CHRIST WALKER sent referral to [facility] and arranged for portable tank to be delivered to hospital prior to discharge.
--- NOTE | 2020-02-07 15:19 | PCM.PN.HOSP ---
Patient Problems: Active and Suspected Problems (Last Reviewed 01/31/20 @ 07:51 by Irene Aguirre NP-Efrain) Acute respiratory failure (Acute) Elevated troponin (Acute) COPD with acute exacerbation (Acute) Lower respiratory tract infection (Acute) Suspected severe acute respiratory syndrome coronavirus 2 (SARS-CoV-2) infection (Acute) Reason for Visit: Follow-up on Acute CHF exacerbation Subjective: Patient was seen and examined. He had an episode of substernal chest discomfort overnight. This is absent this morning. Vitals/I&O's: Vital Signs Temp Pulse Resp BP Pulse Ox 97.4 F L 97 20 H 155/95 H 92 02/07/20 10:00 02/07/20 12:30 02/07/20 10:44 02/07/20 10:00 02/07/20 14:07 Oxygen Flow Rate (L/min) [ 2 AMBULATION with Oxygen] Oxygen Flow Rate (L/min) 2 Oxygen Delivery Method Room Air Weight: 74.5 kg Body Mass Index (BMI) 25.3 Intake and Output for Last 24 Hours 02/05/20 02/06/20 02/07/20 23:59 23:59 23:59 Intake Total 766 / 766 1674 / 2274 840 / 840 Output Total 1250 / 1250 Balance -484 / -484 1674 / 2274 840 / 840 General: Alert, Oriented x3, Cooperative, No apparent distress HEENT: Atraumatic, PERRLA, EOMI, Normocephalic Oral: Moist Mucosa Neck: Supple Lungs: Clear to auscultation, Normal air movement Cardiovascular: Regular rate, Regular Rhythm, Normal S1, Normal S2, No murmurs Abdomen: Bowel Sounds Present, Soft, Non Tender, Non-Distended, No Hepato-splenomegaly Extremities: No edema Skin: No rashes, No breakdown Musculoskeletal: No Tenderness to Palpation of Joints or Extremities Lymphatic: No Cervical, Supraclavicular, or Inguinal Adenopathy Neurological: Cranial nerves II-XII grossly intact, Neuro grossly intact Psych/Mental Status: Normal Affect, Appropriate Microbiology Past 72 Hours 02/05/20 02:10 Blood Culture (Wb) #2 - Left Hand Blood Culture - Preliminary No growth in 48 hours. 02/05/20 02:10 Blood Culture (Wb) - Anticubital Left Blood Culture - Preliminary No growth in 48 hours. 02/05/20 03:42 Mucosa - Nasopharyngeal Respiratory Panel (PCR) - Final 02/05/20 02:15 Mucosa - Nasopharyngeal Influenza Types A,B Direct FA (NAYSIA) - Final Laboratory Results 02/05/20 04:29: COVID-19 (YANCI) Not Detected 02/07/20 05:45: WBC 17.6 H, RBC 3.89 L, Hgb 11.8 L, Hct 36.4 L, MCV 93.6, MCH 30.3, MCHC 32.4, RDW Std Deviation 59.5 H, RDW Coeff of Karen 17.9 H, Plt Count 206, MPV 10.6, Immature Gran % (Auto) 1.200 H, Neut % (Auto) 78.4 H, Lymph % (Auto) 14.9 L, [place] % (Auto) 5.0, Eos % (Auto) 0.3, Baso % (Auto) 0.2, Absolute Neuts (auto) 13.8 H, Absolute Lymphs (auto) 2.62, Nucleated RBC % 0 02/07/20 05:45: Sodium 138, Potassium 3.8, Chloride 101, Carbon Dioxide 33.0 H, Anion Gap 4 L, BUN 28 H, Creatinine 1.14, Estim Creat Clear Calc 60.83, Est GFR (MDRD) Af Amer 82, Est GFR (MDRD) Non-Af 68, BUN/Creatinine Ratio 24.6 H, Glucose 136 H, Calcium 8.4 L, Phosphorus 3.6, Magnesium 2.5 Current Medications Acetaminophen (Tylenol) 650 mg PO Q6H PRN PRN PRN Reason: Pain Score 1-10/Temp > 100.7 F Albuterol/Ipratropium (Duoneb) 3 ml INHALATION Q4H.RT REPLACED BY [facility] Last Admin: 02/07/20 10:44 Dose: 3 ml Documented by: Aspirin (Aspirin, Baby) 81 mg PO DAILY@0800 REPLACED BY [facility] Atorvastatin Calcium (Lipitor) 10 mg PO QHS REPLACED BY [facility] Last Admin: 02/06/20 21:03 Dose: 10 mg Documented by: Carvedilol (Coreg) 3.125 mg PO BID REPLACED BY [facility] Dextrose (D50w Syringe) 0 gm IV X1 PRN; Protocol PRN Reason: Hypoglycemia Enoxaparin Sodium (Lovenox) 40 mg SC DAILY REPLACED BY [facility] Last Admin: 02/07/20 10:16 Dose: 40 mg Documented by: Fluoxetine HCl (Prozac) 20 mg PO BID REPLACED BY [facility] Last Admin: 02/07/20 10:16 Dose: 20 mg Documented by: Furosemide (Lasix) 20 mg PO BID@1000,1800 REPLACED BY [facility] Last Admin: 02/07/20 10:17 Dose: 20 mg Documented by: Gabapentin (Neurontin) 400 mg PO Q8H REPLACED BY [facility] Last Admin: 02/07/20 10:16 Dose: 400 mg Documented by: Glucagon () 1 mg IM .X1 PRN PRN Reason: Hypoglycemia Sodium Chloride () 250 mls @ 15 mls/hr IV .[id number] PRN PRN Reason: Saline Flush Sodium Chloride () 250 mls @ 15 mls/hr IV .[id number] PRN PRN Reason: Additional IVPB Infusion Sodium Chloride () 1,000 mls @ 0 mls/hr IV .Q0M REPLACED BY [facility] Lisinopril (Zestril) 2.5 mg PO DAILY REPLACED BY [facility] Melatonin (Melatonin) 10 mg PO QHS REPLACED BY [facility] Last Admin: 02/06/20 21:03 Dose: 10 mg Documented by: Mirtazapine (Remeron) 15 mg PO QHS REPLACED BY [facility] Last Admin: 02/06/20 21:03 Dose: 15 mg Documented by: Morphine Sulfate () 2 mg IV Q3H PRN PRN PRN Reason: Pain Score 6-10/10 Nitroglycerin (Nitrostat) 0.4 mg SUBLINGUAL Q5M PRN PRN Reason: ANGINA Ondansetron HCl (Zofran) 4 mg IV Q8H PRN PRN PRN Reason: NAUSEA/VOMITING Pantoprazole Sodium (Protonix) 40 mg PO DAILY REPLACED BY [facility] Last Admin: 02/07/20 10:16 Dose: 40 mg Documented by: Potassium Chloride (K-Dur) 10 meq PO DAILY REPLACED BY [facility] Last Admin: 02/07/20 10:16 Dose: 10 meq Documented by: Rivastigmine (Exelon Patch 4.6mg) 1 patch TD DAILY REPLACED BY [facility] Last Admin: 02/07/20 10:16 Dose: 1 patch Documented by: Sodium Chloride () 10 - 40 ml IV UD PRN PRN Reason: SALINE FLUSH Last Admin: 02/06/20 01:52 Dose: 30 ml Documented by: STROKE Vital Signs/Narrative: Vital Signs Pulse Pulse Ox Pulse Ox Pulse Ox 04/16/20 14:07 86 95 92 02/07/20 12:30 97 Medical Necessity - Tobacco Use Smoking Status: Current every day smoker Tobacco Use: Cigars Assessment/Plan All Active Problems (Last Reviewed 01/31/20 @ 07:51 by Irene Aguirre, SNACK STEWARDESS-C) Acute respiratory failure (Acute) Elevated troponin (Acute) COPD with acute exacerbation (Acute) Lower respiratory tract infection (Acute) Suspected severe acute respiratory syndrome coronavirus 2 (SARS-CoV-2) infection (Acute) Fatigue (Acute) Angioedema due to angiotensin converting enzyme inhibitor (LASHONDA-I) (Resolved) Respiratory failure (Resolved) Acute kidney injury (Resolved) Aneurysm of infrarenal abdominal aorta (Resolved) Bradycardia (Resolved) Cephalgia (Resolved) Symptomatic bradycardia (Resolved) Testicular cancer (Resolved) 1. Hypoxia secondary to acute combined(systolic and diastolic CHF, patient qualifies for oxygen on ambulation Will continue treatment for CHF and reevaluate in a.m. 2. Acute combined CHF, EF of 30% with stage III diastolic dysfunction, this is new Patient has improved with Lasix therapy Allergy to lisinopril, will continue on Coreg 25 mg p.o. twice daily Cardiac cath in a.m. 3. CHERY on CKD stage III, baseline creatinine of 1.1-1.2, Cr is now 1.1, continue to monitor with Lasix therapy 4. Hypertension, uncontrolled, continue on carvedilol 5. COPD, not in acute exacerbation, on breathing treatments prn 6. Anxiety/depression, on Remeron, Prozac 7. Dementia, on rivastigmine 8. DVT PPx- Lovenox SC Inpatient E&M: 00928 Subs Hosp L2
[2020-02-07] MEDS: Acetaminophen 325 MG Tablet 650 MG PO (18:36)
[2020-02-07] MEDS: MELATONIN 10 MG TABLET PO (21:15)
[2020-02-07] MEDS: Atorvastatin Calcium 10 MG Tablet PO (21:17)
[2020-02-07] MEDS: Mirtazapine 15 MG Tablet PO (21:21)
[2020-02-07] MEDS: Carvedilol 6.25 MG Tablet PO (21:21)
[2020-02-08] VITALS (13 sets, daily range): BP systolic 116–155; BP diastolic 64–90; PULSE 54–81; RESP 14–18; TEMP 36.1–36.6; O2SAT 91–98
[2020-02-08] MEDS: Gabapentin 400 MG Capsule PO ×2 (02:35→11:20)
[2020-02-08 05:42] LABS: Anion Gap 5 (5-15); BUN 26 mg/dL (7-18); BUN/Creat Ratio 21.8 RATIO (10-20); Calcium,Total 8.2 mg/dL (8.5-10.1); Chloride 98 mmol/L (98-107); Creatinine, Serum 1.19 mg/dL (0.70-1.30); EST Glomerular Filtration Rate 65 mL/min (>60); Est Glom Filt Rate - Afr Amer 78 mL/min (>60); Estimated Creatinine Clearance 58.28 ml/min; Glucose 106 mg/dL (74-106); Potassium 3.5 mmol/L (3.5-5.1); Sodium Level 137 mmol/L (136-145)
--- NOTE | 2020-02-08 05:55 | EKG12_ITS ---
Test Reason : AM EKG Blood Pressure : / mmHG Vent. Rate : 074 BPM Atrial Rate : 074 BPM P-R Int : 158 ms QRS Dur : 094 ms QT Int : 420 ms P-R-T Axes : 068 -07 115 degrees QTc Int : 466 ms Normal sinus rhythm Left ventricular hypertrophy T- wave abnormality: consider metabolic effect, medication effect, myocardial ischemia; LVH repolariz ation effect Abnormal ECG Confirmed by FARZANA BRAXTON, MUSA ([id number]), assistant editor OCHOA DONNELLY ([id number]) on 02/13/2020 10:01:10 AM Referred By: Musa Pierce Confirmed By:MUSA YANES MD
[2020-02-08] MEDS: Carvedilol 6.25 MG Tablet PO (06:24)
[2020-02-08] MEDS: Aspirin 81 MG TAB.CHEW PO (06:24)
[2020-02-08] MEDS: Ipratropium/Albuterol Sulfate 3 ML AMPUL.NEB INHALATION ×2 (07:03→11:32)
--- NOTE | 2020-02-08 07:12 | PN_ITS ---
Subjective: Patient transferred out of the intensive care unit yesterday. Patient was hemodynamically stable overnight and has tolerated room air. Patient is reporting a chest heaviness this morning and states that it did keep him from resting comfortably. Patient does not believe this is increasing in intensity or radiating. No diaphoresis was noted. No ST elevations have been noted on telemetry. General: Alert, Oriented x3, Cooperative, - - Mild distress. Appears older than stated age. HEENT: Atraumatic, PERRLA, EOMI, Normocephalic Oral: Moist Mucosa, No Gingival or Mucosal Lesions/ Ulcerations Neck: Supple, No JVD, No Nodes, Trachea Midline Lungs: No rhonchi, No rales, Diminished, Wheezes Cardiovascular: Regular rate, Regular Rhythm, Normal S1, Normal S2, No murmurs, No rub noted, No Gallop Abdomen: Bowel Sounds Present, Soft, Non Tender, Non-Distended Extremities: No clubbing, No cyanosis, No edema, Capillary Refill Less than 3 Seconds Skin: No rashes, No breakdown Musculoskeletal: No Tenderness to Palpation of Joints or Extremities Lymphatic: No Cervical, Supraclavicular, or Inguinal Adenopathy Neurological: Cranial nerves II-XII grossly intact, Neuro grossly intact, Motor Exam 5/5 strength throughout Psych/Mental Status: Alert and oriented to time, place, person, mood and affect Vital Signs Temp Pulse Resp BP Pulse Ox 36.6 C 66 14 116/65 93 02/08/20 02:45 02/08/20 02:59 02/08/20 02:45 02/08/20 02:45 02/08/20 02:45 Oxygen Flow Rate (L/min) [ 2 AMBULATION with Oxygen] Oxygen Flow Rate (L/min) 2 Oxygen Delivery Method Room Air Weight: 74.3 kg Body Mass Index (BMI) 25.3 Intake and Output for Last 24 Hours 02/06/20 02/07/20 02/08/20 23:59 23:59 23:59 Intake Total 1674 / 2274 1720 / 1720 240 / 240 Balance 1674 / 2274 1720 / 1720 240 / 240 Labs (Last 48 Hours) 02/05/20 02/06/20 02/06/20 04:29 06:50 13:50 WBC RBC Hgb Hct MCV MCH MCHC RDW Std Deviation RDW Coeff of Karen Plt Count MPV Immature Gran % (Auto) Neut % (Auto) Lymph % (Auto) [place] % (Auto) Eos % (Auto) Baso % (Auto) Absolute Neuts (auto) Absolute Lymphs (auto) Nucleated RBC % Sodium 136 Potassium 3.8 Chloride 97 L Carbon Dioxide 32.0 Anion Gap 7 BUN 31 H Creatinine 1.49 H Estim Creat Clear Calc 46.54 Est GFR (MDRD) Af Amer 60 Est GFR (MDRD) Non-Af 50 L BUN/Creatinine Ratio 20.8 H Glucose 194 H Calcium 8.6 Phosphorus 4.1 Magnesium 2.4 Troponin I 0.031 COVID-19 (YANCI) Not Detected 02/07/20 02/07/20 02/08/20 05:45 05:45 05:00 WBC 17.6 H RBC 3.89 L Hgb 11.8 L Hct 36.4 L MCV 93.6 MCH 30.3 MCHC 32.4 RDW Std Deviation 59.5 H RDW Coeff of Karen 17.9 H Plt Count 206 MPV 10.6 Immature Gran % (Auto) 1.200 H Neut % (Auto) 78.4 H Lymph % (Auto) 14.9 L [place] % (Auto) 5.0 Eos % (Auto) 0.3 Baso % (Auto) 0.2 Absolute Neuts (auto) 13.8 H Absolute Lymphs (auto) 2.62 Nucleated RBC % 0 Sodium 138 137 Potassium 3.8 3.5 Chloride 101 98 Carbon Dioxide 33.0 H 34.0 H Anion Gap 4 L 5 BUN 28 H 26 H Creatinine 1.14 1.19 Estim Creat Clear Calc 60.83 58.28 Est GFR (MDRD) Af Amer 82 78 Est GFR (MDRD) Non-Af 68 65 BUN/Creatinine Ratio 24.6 H 21.8 H Glucose 136 H 106 Calcium 8.4 L 8.2 L Phosphorus 3.6 Magnesium 2.5 Troponin I COVID-19 (YANCI) Microbiology 02/05/20 02:10 Blood Culture (Wb) #2 - Left Hand Blood Culture - Preliminary No growth in 48 hours. 02/05/20 02:10 Blood Culture (Wb) - Anticubital Left Blood Culture - Preliminary No growth in 48 hours. Medical Necessity - Tobacco Use Smoking Status: Current every day smoker Tobacco Use: Cigars Assessment/Plan All Active Problems (Last Reviewed 01/31/20 @ 07:51 by Irene Aguirre, FILTERING MACHINE TENDER HELPER-C) Acute respiratory failure (Acute) Elevated troponin (Acute) COPD with acute exacerbation (Acute) Lower respiratory tract infection (Acute) Suspected severe acute respiratory syndrome coronavirus 2 (SARS-CoV-2) infection (Acute) Fatigue (Acute) Angioedema due to angiotensin converting enzyme inhibitor (LASHONDA-I) (Resolved) Respiratory failure (Resolved) Acute kidney injury (Resolved) Aneurysm of infrarenal abdominal aorta (Resolved) Bradycardia (Resolved) Cephalgia (Resolved) Symptomatic bradycardia (Resolved) Testicular cancer (Resolved) RECOMMENDATIONS: 1. Await cath results 2. Walking oximetry prior to discharge 3. May need supplemental oxygen prior to discharge 4. Okay to follow-up with pulmonary as previously scheduled IMPRESSIONS: 1. Acute hypoxic respiratory failure secondary to probable acute on chronic diastolic congestive heart failure Patient's acute hypoxic respiratory failure does appear to be secondary to congestive heart failure. New echocardiogram does show significant depression in systolic and diastolic dysfunction. Patient is to have a heart catheterization later today. Await the results. Patient is having some chest pressure/angina symptoms at this time, but no ST elevations are reported. We will hold off on any anticoagulation given need for intervention today. 2. Stage III COPD Patient currently on bronchodilators . Clinical suspicion at this may be secondary to congestive heart failure more than COPD exacerbation, which would explain why he did not respond to steroids and antibiotics. We will continue these for now pending culture results. Clinical course is not suggestive of a COPD exacerbation, so steroids were discontinued. Okay to continue with bronchodilators. Patient can follow-up with pulmonary as previously scheduled 3. Hypertension/chronic kidney disease Complicates care, management, recovery and prognosis. Okay to continue with baseline medications from my perspective. Inpatient E&M: 83811 Subs Hosp L2
--- NOTE | 2020-02-08 09:04 | NURSING ---
report called to Cecelia POLO in fence laborer
--- NOTE | 2020-02-08 11:06 | CON.PCM_ITS ---
Reason for Consult Date of Consultation: 02/08/20 History of Present Illness: The patient is a 69 year old M, with past medical history listed below and known to me from the outpatient office, who presented to [facility] on 02/05/2020 with complaints of progressive shortness of breath despite prednisone and antibiotics as an outpatient. Patient reportedly had had a telemedicine visit with my nurse practitioner secondary to shortness of breath. Patient gone to an urgent care last week he was placed on prednisone and doxycycline. Patient was on a tapering dose of prednisone and continued to get worse. Patient does have a nebulizer machine at home and had attempted repeated treatments without improvement. Patient had reported orthopnea. In the ER, patient was given multiple aerosol treatments with minimal improvement. Chest x-ray showed patchy bilateral infiltrates. There was some concern for COVID-19, but patient was initiated on BiPAP. Patient was also placed on empiric antibiotics, Solu-Medrol and transported to the intensive care unit with possible need for intubation. Patient was transported on a nonrebreather and had reported significant worsening in his respiratory status. In the ICU, patient was placed back on BiPAP therapy with improvement in overall status. Patient denied any chest pain, abdominal pain, nausea or vomiting. Patient had a cough productive of frothy white sputum recently. Patient had not reported any lower extremity edema. Patient reports that he has had angioedema in the past associated with LASHONDA inhibitor's and this does not feel like that. Patient does not believe the prednisone did that much. Patient's shortness of breath improved significantly with Lasix. A 2D echo was performed which revealed an EF of around 35%. Coronary angiography was performed to evaluate cause for new onset systolic dysfunction. This revealed no significant coronary artery disease. LV gram was not performed as patient had possible LV apical thrombus on 2D echo. Review of systems otherwise negative from a constitutional, HEENT, respiratory, cardiovascular, GI, genitourinary, musculoskeletal, skin, neurologic, psychiatric and hematologic system unless stated above. Past Medical History Allergies/Adverse Reactions: Allergies LASHONDA Inhibitors Allergy (Severe, Verified 02/05/20 01:57) Angioedema lisinopril Allergy (Severe, Verified 02/05/20 01:57) Angioedema Home Medications: Ambulatory Orders Medication Instructions Recorded fluoxetine 20 mg capsule 20 mg PO BID cap 04/23/19 gabapentin 400 mg capsule 400 mg PO TID cap 07/01/19 melatonin 10 mg capsule 10 mg PO QHS 04/23/19 nitroglycerin 0.4 mg sublingual 0.4 mg SUBLINGUAL Q5-15M PRN 04/23/19 tablet rivastigmine 1 patch TRANSDERMAL DAILY 04/23/19 Atorvastatin Calcium [Lipitor] 10 mg PO DAILY 04/27/19 Pantoprazole Sodium [Protonix] 40 mg PO DAILY 07/05/19 furosemide 20 mg tablet 20 mg PO DAILY tab 12/03/19 mirtazapine 15 mg tablet 15 mg PO DAILY tab 12/03/19 potassium chloride 10 mEq 10 meq PO DAILY #30 tab 12/03/19 tablet,extended release doxycycline hyclate 100 mg tablet 100 mg PO BID 01/30/20 glycopyrrolate 9 mcg-formoterol 2 inh INHALATION QAM AND QPM #1 inh 01/31/20 4.8 mcg HFA aerosol inhaler Past Medical History (Chronic Problems): Chronic Problems (Last Reviewed 01/31/20 @ 07:51 by FIDELINA Wild) Acute exacerbation of CHF (congestive heart failure) (Chronic) Stage 3 severe COPD by GOLD classification (Chronic) FEV1 51% of predicted Dilation of thoracic aorta (Chronic) Palpitations (Chronic) Holter had revealed a 10 beat run of SVT and a 5 beat run of nonsustained V. tach. No beta-antony at this time due to resting bradycardia. Patient has not had any palpitations in the last 2 weeks. We will monitor this. Essential hypertension (Chronic) History of AAA (abdominal aortic aneurysm) repair (Chronic) Pulmonary fibrosis (Chronic) Stage 2 moderate COPD by GOLD classification (Chronic) Dizziness (Chronic) Appears to be due to vertigo. He is responding well to meclizine. We will go down further on lisinopril to see if there is any orthostatic component to it. Advised patient to ask PCP for further referral to neurology or ENT if felt appropriate by PCP. Tobacco abuse (Chronic) Dyspnea (Chronic) Chest pain (Chronic) Overweight (BMI 25.0-29.9) (Chronic) CKD (chronic kidney disease) (Chronic) Chronic abdominal pain (Chronic) GERD (gastroesophageal reflux disease) (Chronic) Surgical History: - - Left testicular removal, bilateral knee arthroscopic surgery, tonsillectomy, left wrist surgery, AAA repair, left eye corneal transplant. Psychiatric History: Anxiety, Depression - *Family History Maternal Family History: Family History (Last Reviewed 01/31/20 @ 07:51 by FIDELINA Wild) Father Cancer AAA (abdominal aortic aneurysm) Grandfather AAA (abdominal aortic aneurysm) Uncle AAA (abdominal aortic aneurysm) History Items: Heart Disease Paternal Family History: Family History (Last Reviewed 01/31/20 @ 07:51 by FIDELINA Wild) Father Cancer AAA (abdominal aortic aneurysm) Grandfather AAA (abdominal aortic aneurysm) Uncle AAA (abdominal aortic aneurysm) History Items: Heart Disease Smoking Status: Current every day smoker Tobacco Use: Cigars Objective: Vital Signs Temp Pulse Resp BP Pulse Ox 97.2 F L 70 16 141/80 H 95 02/08/20 11:01 02/08/20 11:01 02/08/20 11:01 02/08/20 11:01 02/08/20 11:01 Oxygen Flow Rate (L/min) [ 2 AMBULATION with Oxygen] Oxygen Flow Rate (L/min) 2 Oxygen Delivery Method Room Air Weight: 163 lb 12.855 oz Body Mass Index (BMI) 25.3 Intake and Output for Last 24 Hours 02/06/20 02/07/20 02/08/20 23:59 23:59 23:59 Intake Total 1674 / 2274 1720 / 1720 240 / 240 Balance 1674 / 2274 1720 / 1720 240 / 240 General: Awake, Alert, Oriented x 3 HEENT: Atraumatic Cardiovascular: Regular Rhythm Abdomen: Soft Skin: No Rashes Psych/Mental Status: Appropriate 02/08/20 05:00: Sodium 137, Potassium 3.5, Chloride 98, Carbon Dioxide 34.0 H, Anion Gap 5, BUN 26 H, Creatinine 1.19, Est GFR (MDRD) Af Amer 78, Est GFR (MDRD) Non-Af 65, BUN/Creatinine Ratio 21.8 H, Glucose 106, Calcium 8.2 L Rhythm: EKG: ECHO: Stress Test: Cardiac Cath: PCI: CT Surgery: Holter monitor: EPS: PPM: CXR: Chest CT Scan: Assessment/Plan 1. Shortness of breath: It appears that the worsening shortness of breath was due to decompensated CHF which has improved. Patient cannot take LASHONDA inhibitors or ARB's due to angioedema. It would be reasonable to keep the patient on p.o. Lasix and Coreg. He could potentially be discharged home today. 2. CHF: Due to acute decompensated systolic and diastolic dysfunction. Improved significantly. Management as mentioned above. He will need an assessment of his EF in about 3 months to see if he would need an AICD. Patient admits to past history of alcohol abuse. 3. LV apical thrombus: It would be reasonable to start the patient on Coumadin or 1 of the novel oral anticoagulants.
--- NOTE | 2020-02-08 11:19 | DCINST_ITS ---
- Discharge Diagnoses Current Active Problems: Current Active and Chronic Problems (Last Reviewed 01/31/20 @ 07:51 by FIDELINA Wild) Acute respiratory failure (Acute) Elevated troponin (Acute) COPD with acute exacerbation (Acute) Lower respiratory tract infection (Acute) Suspected severe acute respiratory syndrome coronavirus 2 (SARS-CoV-2) infection (Acute) Acute exacerbation of CHF (congestive heart failure) (Chronic) Chest pain (Chronic) Reason(s) for Visit for Discharge Instructions: CHF exacerbation You will use the following diet at home:: Cardiac Your food should be the consistency of: Regular Your liquids should be the consistency of: Regular/Thin Discharge Activity: Return to Normal Activity Instructions: What Is Heart Failure?, Heart Failure: Tracking Your Weight, Heart Failure: Making Changes to Your Diet, Heart Failure: Medications to Help Your Heart Additional Instructions: Take note of changes in your medications. Continue on your medications. Watch out for possible side-effects of Eliquis with bleeding from any orifices. Watch your fluid intake; limit your total fluid intake to 1500mls/day, follow a low salt, low fat diet. Weigh yourself everyday. Follow-up with cardiology in 2 weeks Allergies/Adverse Reactions: Allergies LASHONDA Inhibitors Allergy (Severe, Verified 02/05/20 01:57) Angioedema lisinopril Allergy (Severe, Verified 02/05/20 01:57) Angioedema Medications to take at Discharge fluoxetine 20 mg capsule 20 mg PO BID cap 04/23/19 gabapentin 400 mg capsule 400 mg PO TID cap 04/23/19 melatonin 10 mg capsule 10 mg PO QHS 04/23/19 nitroglycerin 0.4 mg sublingual tablet 0.4 mg SUBLINGUAL Q5-15M PRN 04/23/19 rivastigmine 1 patch TRANSDERMAL DAILY 04/23/19 Atorvastatin Calcium [Lipitor] 10 mg PO DAILY 04/27/19 Pantoprazole Sodium [Protonix] 40 mg PO DAILY 07/05/19 mirtazapine 15 mg tablet 15 mg PO DAILY tab 12/03/19 potassium chloride 10 mEq tablet,extended release 10 meq PO DAILY #30 tab 12/03/19 glycopyrrolate 9 mcg-formoterol 4.8 mcg HFA aerosol inhaler 2 inh INHALATION QAM AND QPM #1 inh 01/31/20 Apixaban [Eliquis] 5 mg PO BID 30 Days #60 tab 02/08/20 Carvedilol [Coreg (Beta Reji)] 6.25 mg PO BID 30 Days #60 tab 02/08/20 Furosemide [Lasix] 40 mg PO DAILY 30 Days #30 tab 02/08/20 The following prescriptions were given: Carvedilol [Coreg (Beta Reji)] 6.25 mg PO BID 30 Days #60 tab Transmission Status: Pending to [id number] Apixaban [Eliquis] 5 mg PO BID 30 Days #60 tab Transmission Status: Pending to [id number] Furosemide [Lasix] 40 mg PO DAILY 30 Days #30 tab Transmission Status: Pending to [id number] Primary Care Physician: Archie Flores MD [Primary Care Provider] - Please follow up with your Primary Care Physician in: within 1-2 weeks Test Results: Test results from this visit will be discussed in further detail at your follow- up appointment, if applicable. Please Follow Up With: Ej Emerson MD When: in 2 weeks Please Follow Up With: Judd Mcgill MD When: as scheduled Proposed Discharge Date: 02/08/20
[2020-02-08] MEDS: Furosemide 20 MG Tablet PO (11:20)
[2020-02-08] MEDS: Pantoprazole Sodium 40 MG Tablet PO (11:20)
[2020-02-08] MEDS: 0.9% Normal Saline 1,000 ML 50 ML IV (11:21)
[2020-02-08] MEDS: FLUoxetine 20 MG Capsule PO (11:21)
--- NOTE | 2020-02-08 11:25 | DS.PCM_ITS ---
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 tach. No beta-reji at this time due to resting bradycardia. Patient has not had any palpitations in the last 2 weeks. We will monitor this. Essential hypertension (Chronic) History of AAA (abdominal aortic aneurysm) repair (Chronic) Pulmonary fibrosis (Chronic) Stage 2 moderate COPD by GOLD classification (Chronic) Dizziness (Chronic) Appears to be due to vertigo. He is responding well to meclizine. We will go down further on lisinopril to see if there is any orthostatic component to it. Advised patient to ask PCP for further referral to neurology or ENT if felt appropriate by PCP. Tobacco abuse (Chronic) Dyspnea (Chronic) Chest pain (Chronic) Overweight (BMI 25.0-29.9) (Chronic) CKD (chronic kidney disease) (Chronic) Chronic abdominal pain (Chronic) GERD (gastroesophageal reflux disease) (Chronic) Hospital Course and Treatment Imaging Results: Clinical Impression(s) from Imaging Studies Chest X-Ray 02/05/20 02:04 IMPRESSION: Multifocal airspace disease likely infiltrates possible pneumonia. Stable borderline cardiac size and arteriosclerosis. Electronically Signed: Mercedes Matthews MD at 3:21 EDT , Service support , Chest CT 02/05/20 03:15 IMPRESSION: Progression of pulmonary fibrosis since previous examination. Component of congestive heart failure suspected. Mediastinal and right hilar lymphadenopathy, progressive since previous examination. Minimal peripheral airspace opacification, possible mild inflammation superimposed on pulmonary fibrosis. No patchy air space disease or infiltrates are otherwise detected when compared to previous chest x-ray. Electronically Signed: Mercedes Matthews MD at 4:50 EDT , Service support , Critical care Operations: None Procedures: 2-D Echocardiogram, Cardiac catheterization Summary of Care Provided: The patient is a 69 year old M with past medical history of chronic diastolic CHF, stage III COPD who comes in with cough, increased wheezing as well as chest heaviness ongoing for several weeks. Patient was recently seen in urgent care and started on doxycycline and prednisone. He completed a course of prednisone but did not get any improvement in his symptoms. He was admitted to the hospital, his BNpep was 1040. COVID?19 was ruled out during this hospital stay. Patient improved with IV Lasix. He had minimal elevation in his troponins, EKG showed no acute ST-T changes. He complained of intermittent chest discomfort during the hospital stay. Cardiology was consulted. 2D echo showed EF of 35%, stage III diastolic dysfunction, moderate to severe global hypokinesis of the left ventricle, via pulmonary hypertension, possible left ventricular apical thrombus. With a drop in his EF from normal a year ago, cardiology elected to do a cardiac cath. Findings showed clean coronaries. Patient was discharged on Eliquis to cover left ventricular apical thrombus. He will follow-up with his primary care doctor within 1 to 2 days for repeat blood work as well as with cardiology in 2 weeks. During the hospital stay, patient's white cell count was elevated because of steroids that he was started on. Steroids were discontinued in the early part of his hospital stay. No signs of infection. On the day of discharge, patient was evaluated for home oxygen. He qualified for oxygen and was discharged home with oxygen. Subjective: On the day of discharge, patient was seen and examined. He still has some chest discomfort. He had cardiac cath today that showed clean coronaries. Objective: Physical exam: General: Alert, Oriented x3, Cooperative, No apparent distress HEENT: Atraumatic, PERRLA, EOMI, Normocephalic Oral: Moist Mucosa Neck: Supple Lungs: Clear to auscultation, Normal air movement Cardiovascular: Regular rate, Regular Rhythm, Normal S1, Normal S2, No murmurs Abdomen: Bowel Sounds Present, Soft, Non Tender, Non-Distended, No Hepato- splenomegaly Extremities: No edema Skin: No rashes, No breakdown Musculoskeletal: No Tenderness to Palpation of Joints or Extremities Lymphatic: No Cervical, Supraclavicular, or Inguinal Adenopathy Neurological: Cranial nerves II-XII grossly intact, Neuro grossly intact Psych/Mental Status: Normal Affect, Appropriate - Physical Exam Vitals/I&O's: Vital Signs Temp Pulse Resp BP Pulse Ox 97.2 F L 70 16 136/64 H 97 02/08/20 11:01 02/08/20 11:15 02/08/20 11:15 02/08/20 11:15 02/08/20 11:15 Oxygen Flow Rate (L/min) [ 2 AMBULATION with Oxygen] Oxygen Flow Rate (L/min) 2 Oxygen Delivery Method Room Air Weight: 74.3 kg Body Mass Index (BMI) 25.3 Intake and Output for Last 24 Hours 02/06/20 02/07/20 02/08/20 23:59 23:59 23:59 Intake Total 1674 / 2274 1720 / 1720 240 / 240 Balance 1674 / 2274 1720 / 1720 240 / 240 Microbiology Past 72 Hours 02/05/20 02:10 Blood Culture (Wb) #2 - Left Hand Blood Culture - Preliminary No growth in 48 hours. 02/05/20 02:10 Blood Culture (Wb) - Anticubital Left Blood Culture - Preliminary No growth in 48 hours. Laboratory Results 02/08/20 05:00: Sodium 137, Potassium 3.5, Chloride 98, Carbon Dioxide 34.0 H, Anion Gap 5, BUN 26 H, Creatinine 1.19, Estim Creat Clear Calc 58.28, Est GFR (MDRD) Af Amer 78, Est GFR (MDRD) Non-Af 65, BUN/Creatinine Ratio 21.8 H, Glucose 106, Calcium 8.2 L Current Medications Acetaminophen (Tylenol) 650 mg PO Q6H PRN PRN PRN Reason: Pain Score 1-10/Temp > 100.7 F Last Admin: 02/07/20 18:36 Dose: 650 mg Documented by: Albuterol/Ipratropium (Duoneb) 3 ml INHALATION Q4H.RT [place] Last Admin: 04/17/20 07:03 Dose: 3 ml Documented by: Atorvastatin Calcium (Lipitor) 10 mg PO QHS [facility] Last Admin: 02/07/20 21:17 Dose: 10 mg Documented by: Carvedilol (Coreg) 6.25 mg PO BID [facility] Last Admin: 02/08/20 06:24 Dose: 6.25 mg Documented by: Dextrose (D50w Syringe) 0 gm IV X1 PRN; Protocol PRN Reason: Hypoglycemia Enoxaparin Sodium (Lovenox) 40 mg SC DAILY [facility] Last Admin: 02/08/20 07:29 Dose: Not Given Documented by: Fluoxetine HCl (Prozac) 20 mg PO BID [facility] Last Admin: 02/08/20 11:21 Dose: 20 mg Documented by: Furosemide (Lasix) 20 mg PO BID@1000,1800 [facility] Last Admin: 02/08/20 11:20 Dose: 20 mg Documented by: Gabapentin (Neurontin) 400 mg PO Q8H [facility] Last Admin: 02/08/20 11:20 Dose: 400 mg Documented by: Glucagon () 1 mg IM .X1 PRN PRN Reason: Hypoglycemia Sodium Chloride () 250 mls @ 15 mls/hr IV .[id number] PRN PRN Reason: Saline Flush Sodium Chloride () 250 mls @ 15 mls/hr IV .[id number] PRN PRN Reason: Additional IVPB Infusion Sodium Chloride () 1,000 mls @ 0 mls/hr IV .Q0M [facility] Sodium Chloride () 1,000 mls @ 50 mls/hr IV .Q20H [facility] Last Admin: 02/08/20 11:21 Dose: 50 mls/hr Documented by: Melatonin (Melatonin) 10 mg PO QHS [facility] Last Admin: 02/07/20 21:15 Dose: 10 mg Documented by: Mirtazapine (Remeron) 15 mg PO QHS [facility] Last Admin: 02/07/20 21:21 Dose: 15 mg Documented by: Nitroglycerin (Nitrostat) 0.4 mg SUBLINGUAL Q5M PRN PRN Reason: ANGINA Ondansetron HCl (Zofran) 4 mg IV Q8H PRN PRN PRN Reason: NAUSEA/VOMITING Pantoprazole Sodium (Protonix) 40 mg PO DAILY [facility] Last Admin: 02/08/20 11:20 Dose: 40 mg Documented by: Potassium Chloride (K-Dur) 10 meq PO DAILY [facility] Last Admin: 02/08/20 11:20 Dose: 10 meq Documented by: Rivastigmine (Exelon Patch 4.6mg) 1 patch TD DAILY [facility] Last Admin: 02/08/20 11:20 Dose: 1 patch Documented by: Sodium Chloride () 10 - 40 ml IV UD PRN PRN Reason: SALINE FLUSH Last Admin: 02/06/20 01:52 Dose: 30 ml Documented by: Discharge Diet: Low fat/ Low Cholesterol, 2000 mg Sodium Diet Discharge Activity: Return to Normal Activity Home Medications: Medications to take at Discharge fluoxetine 20 mg capsule 20 mg PO BID cap 04/23/19 gabapentin 400 mg capsule 400 mg PO TID cap 04/23/19 melatonin 10 mg capsule 10 mg PO QHS 04/23/19 nitroglycerin 0.4 mg sublingual tablet 0.4 mg SUBLINGUAL Q5-15M PRN 04/23/19 rivastigmine 1 patch TRANSDERMAL DAILY 04/23/19 Atorvastatin Calcium [Lipitor] 10 mg PO DAILY 04/27/19 mirtazapine 15 mg tablet 15 mg PO DAILY tab 12/03/19 potassium chloride 10 mEq tablet,extended release 10 meq PO DAILY #30 tab 12/03/19 glycopyrrolate 9 mcg-formoterol 4.8 mcg HFA aerosol inhaler 2 inh INHALATION QAM AND QPM #1 inh 01/31/20 Apixaban [Eliquis] 5 mg PO BID 30 Days #60 tab 02/08/20 Carvedilol [Coreg (Beta Reji)] 6.25 mg PO BID 30 Days #60 tab 02/08/20 Furosemide [Lasix] 40 mg PO DAILY 30 Days #30 tab 02/08/20 Pantoprazole Sodium [Protonix] 40 mg PO BID 30 Days #60 tab 02/08/20 Following Prescrptions Were Given to Patient: Carvedilol [Coreg (Beta Reji)] 6.25 mg PO BID 30 Days #60 tab Transmission Status: Received by [id number] Apixaban [Eliquis] 5 mg PO BID 30 Days #60 tab Transmission Status: Received by [id number] Furosemide [Lasix] 40 mg PO DAILY 30 Days #30 tab Transmission Status: Received by [id number] Pantoprazole Sodium [Protonix] 40 mg PO BID 30 Days #60 tab Transmission Status: Received by [id number] Primary Care Physician: Archie Flores MD [Primary Care Provider] - Please follow up with your Primary Care Physician in: within 1-2 weeks Please Follow Up With: Ej Emerson MD When: in 2 weeks Please Follow Up With: Judd Mcgill MD When: as scheduled Patient Instructions: What Is Heart Failure?, Heart Failure: Tracking Your Weight, Heart Failure: Making Changes to Your Diet, Heart Failure: Medications to Help Your Heart Disposition: Home Minutes spent on discharge:: 40 Patient Condition:: Stable Medical Necessity - Tobacco Use Smoking Status: Current every day smoker Tobacco Use: Cigars Meaningful Use Info Meaningful Use Diagnoses (Choose all that apply): CHF - CHF LASHONDA/ARB ordered at discharge?: No Reason LASHONDA/ARB not ordered?: Allergy, Angioedema Documented LVEF (%): 35 Inpatient E&M: 15202 Disch Hosp
--- NOTE | 2020-02-08 11:33 | CL.D_ITS ---
Patient Name: INNA AHMADI Study Date: 02/08/2020 Performing: Néstor Emerson MD Ht: 68 inches 173 cm : 1950 Wt: 163.4 lbs 74 kg Age: 69 Gender: male BSA: 1.88 PROCEDURE(S) PERFORMED [id number] CL[facility]ICAL PROFILE AND INDICATIONS Indications: Cardiomyopathy Heart Failure: NYHA Class: 4, Newly Diagnosed: Yes, Heart Failure Type: Systolic Stress/Imaging Stress/Image Study Performed: No CAD Presentations: Other: CHF CONCLUSIONS No significant CAD RECOMMENDATIONS DESCRIPTION OF PROCEDURE The patient arrived to the procedure lab. The risks and benefits of the procedure as well as a full d escription of our services here and current unavailability of surgical backup were fully explained to the patient and/or their significant other prior to the catheterization. The Timeout was completed, verifying the correct patient and procedure. The patient's procedural site was prepped and draped in the usual fashion. Local anesthetic was given subcutaneously to right radial region with Lidocaine 2% . Using a modified Seldinger technique, arterial access was obtained via the right radial artery, a 6 Fr sheath was inserted. Left Coronary Artery selective angiography was performed in multiple views u sing a 5 Fr. JL3.5 catheter. Right Coronary Artery selective angiography was then performed in multip le views using a 5 Fr. JR 4 catheter.The arterial sheath was pulled and a TR Band was applied for hem ostasis CORONARY ANGIOGRAPHY DOMINANCE: Left Dominant LEFT HEART ASSESSMENT Left Ventricular Ejection Fraction: by Echo 35 % LEFT MAIN: Angiographically normal LEFT ANTERIOR DESCENDING ARTERY: Mild luminal irregularities CIRCUMFLEX ARTERY: Angiographically normal RIGHT CORONARY ARTERY: Mild luminal irregularities COMPLICATIONS No Complications PROCEDURE MEDICATIONS Versed 1 mg IV Fentanyl 50 mcg IV Oxygen: 2 L/min via nasal cannula Heparin given IA 02/08/2020 10:34:19 Verapamil 2.5mg, Ntg 100mcgs, 3000 units of Heparin given IA 02/08/2020 10:34:19 SUMMARY OF HEMODYNAMIC DATA Time AIR REST ECG 10:14:04 AO 110/62 (80) SA 10:37:34 Signed By Néstor Emerson MD On 02/08/2020 11:32:10 Néstor Emerson MD
--- NOTE | 2020-02-08 12:01 | CASEMGMT ---
Per Dr. Bradley, pt to be sent home on Eliquis at discharge and med e-[facility] to [facility]. [facility] [place] and per [facility], pt's co-pay for Eliquis is $47.00 at this time. Pt provided with Eliquis 30day free trial card for first month. Pt already has e-tank in room for discharge and still qualifies for home oxygen at this time. Gigi POLO CM
--- NOTE | 2020-02-11 15:03 | CASEMGMT ---
[facility] CM DC PHONE CALL DC DATE: 02.08.2020 DC DISPOSITION: Home DC DIAGNOSIS: Acute respiratory failure, CHF LACE/STRATA: 08/26 F/U APPTS MADE PRIOR TO DC: yes PRESCRIPTIONS ACQUIRED BY PT: yes Intro role of CM to patient via phone. Pt states he is doing well, no questions re: instructions, medications or f/u. No care improvement suggestions were given. Dami COLLIER RN ACM
== END 2020-02-08 12:41 | disposition home or self-care (01) | DRG 286 ==
LOC: ED 03:50 → ICU 04:33 → PCU 02-08 08:13
PROVIDERS: Internal Medicine Critical Care Medicine; Admitting Provider Family Medicine; Emergency Provider Emergency Medicine; PCP Family Medicine; Referring Provider Family Medicine; Visit Provider Internal Medicine
DX: I13.0 Hypertensive heart and chronic kidney disease with heart failure and stage 1 through stage 4 chronic kidney disease, or unspecified chronic kidney disease (principal); J96.01 Acute respiratory failure with hypoxia; I50.43 Acute on chronic combined systolic (congestive) and diastolic (congestive) heart failure; N17.9 Acute kidney failure, unspecified; N18.3 Chronic kidney disease, stage 3 (moderate); I27.20 Pulmonary hypertension, unspecified; D72.829 Elevated white blood cell count, unspecified; T38.0X5A Adverse effect of glucocorticoids and synthetic analogues, initial encounter; J84.10 Pulmonary fibrosis, unspecified; F41.9 Anxiety disorder, unspecified; F32.9 Major depressive disorder, single episode, unspecified; F03.90 Unspecified dementia, unspecified severity, without behavioral disturbance, psychotic disturbance, mood disturbance, and anxiety; J44.9 Chronic obstructive pulmonary disease, unspecified; Z79.899 Other long term (current) drug therapy; I25.2 Old myocardial infarction; Z90.79 Acquired absence of other genital organ(s); Z94.7 Corneal transplant status; Z86.79 Personal history of other diseases of the circulatory system; Z88.8 Allergy status to other drugs, medicaments and biological substances; Z85.47 Personal history of malignant neoplasm of testis; E66.3 Overweight; F17.290 Nicotine dependence, other tobacco product, uncomplicated; K21.9 Gastro-esophageal reflux disease without esophagitis; Z68.25 Body mass index [BMI] 25.0-25.9, adult
CPT/HCPCS: 36415; 36600; 71045; 71250; 80048; 82803; 83605; 83735; 83880; 84100; 84484; 85025; 87040; 87633; 87635; 87804; 93005; 93306; 93454; 94002; 94640; 94762; 96365; 96375; 99152; 99153; 99285; 99406; J7030; J7040; Q9967; A4216; C1769; C1894; J1940; U0004

== ENCOUNTER → 2020-02-19 07:38 | Outpatient (CLI) | payer MEDICARE, SELFPAY ==
[2020-02-05 04:52] VITALS: BMI 25.3
[2020-02-19 09:10] LABS: Anion Gap 4 (5-15); BUN 9 mg/dL (7-18); Calcium,Total 9.1 mg/dL (8.5-10.1); Chloride 97 mmol/L (98-107); Creatinine, Serum 1.29 mg/dL (0.70-1.30); EST Glomerular Filtration Rate 59 mL/min (>60); Est Glom Filt Rate - Afr Amer 71 mL/min (>60); Glucose 125 mg/dL (74-106); Potassium 3.2 mmol/L (3.5-5.1); Sodium Level 135 mmol/L (136-145)
== END ==
PROVIDERS: PCP Family Medicine; Referring Provider Specialist; Visit Provider Specialist
DX: I11.0 Hypertensive heart disease with heart failure (principal); I50.9 Heart failure, unspecified; R07.9 Chest pain, unspecified
CPT/HCPCS: 36415; 80048

== ENCOUNTER → 2020-05-12 07:52 | Outpatient (CLI) | payer MEDICARE, SELFPAY ==
[2020-01-31 07:51] VITALS: BMI 25.2
[2020-03-04 10:38] VITALS: BMI 25.3
--- NOTE | 2020-05-12 13:00 | PFTCOMP_ITS ---
COMPLETE PULMONARY FUNCTION TEST INTERPRETATION Brief HPI: Patient is a 70 year old male, currently under the care of myself, who presents to [facility] for complete pulmonary function tests secondary to diagnosis of dyspnea. Respiratory therapist reports good effort and reproducible results. Interpretation: Forced expiration spirometry shows a moderate large airways obstructive ventilatory defect with an FEV1 of 60% predicted. There is no significant bronchodilator response by strict ATS criteria. Spirograms are of good quality and plateau slowly, indicating slowly emptying areas of the lungs. The respiratory flow volume loop shows decreased expiratory flow rates at all lung volumes consistent with airway obstruction. Lung volumes by body plethysmography show a normal total lung capacity at 5.21 L, 86% predicted. All other lung volumes are within normal limits. Diffusion capacity by carbon monoxide is decreased at 51% predicted. The airway resistance is elevated. Compared to previous pulmonary function tests from 01/23/2020, there is been a significant improvement in FVC, FEV1 and TLC. Impression: Irreversible moderate large airways obstructive ventilatory defect with a symmetric reduction diffusing capacity and improvement compared to previous study
== END ==
PROVIDERS: PCP Family Medicine; Referring Provider Internal Medicine Critical Care Medicine; Visit Provider Internal Medicine Critical Care Medicine
DX: J44.9 Chronic obstructive pulmonary disease, unspecified (principal)
CPT/HCPCS: 94060; 94726; 94729

== ENCOUNTER → 2020-05-13 08:30 | Outpatient (CLI) | payer MEDICARE, SELFPAY ==
[2020-01-31 07:51] VITALS: BMI 25.2
[2020-03-04 10:38] VITALS: BMI 25.3
[2020-05-13 09:55] VITALS: PULSE 57; PULSE 59; PULSE 61; PULSE 63; PULSE 65; PULSE 69; PULSE 96; O2SAT 93; O2SAT 94; O2SAT 95; O2SAT 97; O2SAT 98
--- NOTE | 2020-05-13 10:26 | PCM.PSN.6M ---
PSN 6 Minute Walk Test - 6 Minute Walk Test 6 Minute Walk Test: 6 Minute Walk Test PSN:6-Minute Walk Test Start: 05/13/20 09:55 Freq: Status: Active Protocol: RESP.6MINW Document 05/13/20 09:55 [facility] (Rec: 05/13/20 09:58 [facility] [id number]) 6 Minute Walk Test Date Performed 05/13/20 Time Performed 08:30 Height 5 ft 8 in Weight: 74.843 kg Weight in Pounds 165.[address]: Judd Mcgill Assistive device used: None Pre-test Oxygen Delivery Method Room Air Pulse Ox (%) 97 Pulse Rate (60-100 beats/min) 57 L Dyspnea Nila Scale (0-10) 2 1st minute Oxygen Delivery Method Room Air Pulse Ox (%) 97 Pulse Rate (60-100 beats/min) 61 Dyspnea Nila Scale (0-10) 2 Number of Rests Taken 0 2nd minute Oxygen Delivery Method Room Air Pulse Ox (%) 95 Pulse Rate (60-100 beats/min) 63 Dyspnea Nila Scale (0-10) 2 Number of Rests Taken 0 3rd minute Oxygen Delivery Method Room Air Pulse Ox (%) 93 Pulse Rate (60-100 beats/min) 65 Dyspnea Nila Scale (0-10) 2 Number of Rests Taken 0 4th minute Oxygen Delivery Method Room Air Pulse Ox (%) 94 Pulse Rate (60-100 beats/min) 69 Dyspnea Nila Scale (0-10) 2 Number of Rests Taken 0 5th minute Oxygen Delivery Method Room Air Pulse Ox (%) 95 Pulse Rate (60-100 beats/min) 65 Dyspnea Nila Scale (0-10) 2 Number of Rests Taken 0 6th minute Oxygen Delivery Method Room Air Pulse Ox (%) 93 Pulse Rate (60-100 beats/min) 96 Dyspnea Nila Scale (0-10) 2 Number of Rests Taken 0 Post-test Oxygen Delivery Method Room Air Pulse Ox (%) 98 Pulse Rate (60-100 beats/min) 59 L Dyspnea Nila Scale (0-10) 2 Full Laps Walked 19 Partial Lap, Number of Tiles Walked 17 Total Distance Walked (ft) 1138 - Interpretation Interpretation: Patient was able to ambulate 1138 feet over the course of 6 minutes on room air with no assistive devices or breaks. The patient did did experience significant desaturation from a baseline of 97% to as low as 93%. No significant tachycardia was noted. These findings are consistent with a respiratory limitation exercise tolerance. - Recommendations Recommendations: No supplemental oxygen is indicated at this time. However, patient will need to be followed closely given level of desaturation.
== END ==
PROVIDERS: PCP Family Medicine; Referring Provider Internal Medicine Critical Care Medicine; Visit Provider Internal Medicine Critical Care Medicine
DX: J44.9 Chronic obstructive pulmonary disease, unspecified (principal)
CPT/HCPCS: 94618

== ENCOUNTER → 2020-06-12 10:45 | Outpatient (CLI) | payer MEDICARE, SELFPAY ==
[2020-03-04 10:38] VITALS: BMI 25.3
[2020-05-28 14:32] VITALS: BMI 25.8
--- NOTE | 2020-06-12 10:46 | ECHOCS_ITS ---
Reason For Study: CHF Procedure This was a 2D Doppler, Color Flow transthoracic echocardiogram. Contrast injection was performed. Exam performed in department. Left Ventricle Moderately dilated left ventricle. The estimated ejection fraction is 30-35 %. Stage 2 diastolic dysfunction. There is moderate to severe global hypokinesis of the left ventricle. Right Ventricle Normal RV size. Normal systolic function. Atria The left atrium is moderately enlarged. Normal right atrium. No doppler evidence for ASD. Mitral Valve There is no mitral valve stenosis. Trivial mitral valve insufficiency. Tricuspid Valve There is no tricuspid stenosis. Pulmonary artery systolic pressure is 40 mmHg. Trivial tricuspid valve insufficiency. Aortic Valve Trisinus/trileaflet aortic valve. There is no aortic stenosis. Trivial aortic valve insufficiency. Pulmonic Valve There is no pulmonic valvular stenosis. Trivial pulmonic valve insufficiency. Great Vessels Normal aortic root. Pericardium/Pleural No pericardial effusion. Medication Diluted definity 3ml given slow IV push to enhance endocardial definition. MMode/2D Measurements & Calculations LVIDd: 6.5 cm IVSd: 1.2 cm Ao root diam: 4.0 cm LVIDs: 5.2 cm LVPWd: 1.2 cm RVDd: 4.4 cm FS: 19.9 % LAV(MOD-bp): 69.9 ml LVAd ap4: 51.5 cm2 SV(MOD-sp4): 84.8 ml LAV(MOD-bp) Indexed: 36.9 ml/m2 EDV(MOD-sp4): 233.4 ml LAV(MOD-sp2): 78.0 ml EDV(sp4-el): 241.9 ml LAV(MOD-sp4): 62.5 ml LVAs ap4: 39.5 cm2 ESV(MOD-sp4): 148.6 ml ESV(sp4-el): 151.5 ml EF(MOD-sp4): 36.3 % EF(sp4-el): 37.4 % SV(sp4-el): 90.5 ml LA A4 area: 21.3 cm2 LA dimension(2D): 4.9 cm RA A4 area: 15.8 cm2 Doppler Measurements & Calculations MV E max kaushik: 67.9 cm/sec Lat Peak E' Kaushik: 2.5 cm/sec Med Peak E' Kaushik: 2.8 cm/sec MV A max kaushik: 45.0 cm/sec E/E' lat: 27.0 E/E' med: 24.5 MV E/A: 1.5 Ao V2 max: 131.1 cm/sec LV V1 max: 94.4 cm/sec PA V2 max: 91.5 cm/sec Ao max P.9 mmHg LV V1 max P.6 mmHg Ao V2 mean: 87.9 cm/sec Ao mean P.4 mmHg Ao V2 VTI: 30.1 cm TR max kaushik: 316.5 cm/sec TR max P.1 mmHg Interpretation Summary The estimated ejection fraction is 30-35 %. Stage 2 diastolic dysfunction. There is moderate to severe global hypokinesis of the left ventricle. The left atrium is moderately enlarged. Trivial mitral valve insufficiency. Trivial aortic valve insufficiency. Ordering Physician: Néstor Emerson Referring Physician: Archie Flores Performed By: Princess PEREZ RDCS, Capri and Student
== END ==
PROVIDERS: PCP Family Medicine; Referring Provider Specialist; Visit Provider Specialist
DX: I50.9 Heart failure, unspecified (principal)
CPT/HCPCS: 93306; Q9957; A4216; C8929

== ENCOUNTER → 2020-08-15 09:30 | Outpatient (CLI) | payer MEDICARE, SELFPAY ==
[2020-08-05 14:54] VITALS: BMI 25.4
== END ==
PROVIDERS: PCP Physician Assistant; Referring Provider Internal Medicine Cardiovascular Disease; Visit Provider Internal Medicine Cardiovascular Disease
DX: Z01.810 Encounter for preprocedural cardiovascular examination (principal)
CPT/HCPCS: 87635; C9803; U0003

== ENCOUNTER 2020-08-21 08:14 | Day surgery (SDC) | payer MEDICARE, SELFPAY ==
[2020-05-28 14:32] VITALS: BMI 25.8
[2020-08-05 14:54] VITALS: BMI 25.4
[2020-08-05 15:30] LABS: Bacteria 0 SEEN /hpf (None Seen); Mucous, Urine 0 SEEN /hpf (<or=2+); Squamous Epithelial Cells - UA 0 SEEN /hpf (0-5); White Blood Cells 0 SEEN /hpf (0-5)
[2020-08-05 16:57] LABS: Hematocrit 42.3 % (40-54); Hemoglobin 13.5 g/dL (13.0-16.5); Mean Corp Hgb Conc 31.9 g/dL (32-36); Mean Corpuscular Hgb 31.4 pg (27.0-32.0); Mean Corpuscular Volume 98.4 fL (80-94); Mean Platelet Vol. 11.4 fl (6.2-12.0); Platelet Count 209 K/mm3 (150-450); RBC Distribution Width CV 17.2 % (11.6-14.6); RBC Distribution Width SD 62.6 fl (35.1-43.9); White Blood Count 7.3 K/mm3 (4.4-11.0)
[2020-08-05 17:10] LABS: International Normalized Ratio 1.6; Prothrombin Time (Protime)PT. 18.3 SECONDS (11.7-14.9)
[2020-08-05 17:22] LABS: Color, Urine Yellow (Yellow); Glucose, Dipstick Normal (Normal); Ketone-Dipstick Negative (Negative); Leukocyte Esterase-Dipstick Negative /ul (Negative); Nitrite-Dipstick Negative (Negative); Occult Blood-Urine Negative /ul (Negative); Protein-Dipstick Negative (Negative); Urine Bilirubin Dipstick Negative (Negative); Urine Clarity Clear (Clear); Urine Urobilinogen Normal (Normal)
[2020-08-05 17:37] LABS: Anion Gap 6 (5-15); BUN 14 mg/dL (7-18); BUN/Creat Ratio 12.8 RATIO (10-20); Calcium,Total 9.2 mg/dL (8.5-10.1); Chloride 101 mmol/L (98-107); Creatinine, Serum 1.09 mg/dL (0.70-1.30); EST Glomerular Filtration Rate 71 mL/min (>60); Est Glom Filt Rate - Afr Amer 86 mL/min (>60); Glucose 78 mg/dL (74-106); Potassium 3.8 mmol/L (3.5-5.1); Sodium Level 136 mmol/L (136-145)
[2020-08-05 18:54] LABS: Red Blood Cells-Urine 0-5 SEEN /hpf (0-5)
[2020-08-20 07:34] VITALS: BMI 25.4
[2020-08-21] VITALS (9 sets, daily range): BP systolic 139–147; BP diastolic 68–76; PULSE 45–58; RESP 13–18; TEMP 36.6–37.1; O2SAT 93–95
--- NOTE | 2020-08-21 09:44 | PCM.HP.BLA ---
History and Physical Date of Admission: 08/21/20 69-year-old male who had seen Dr. Celis in the past referred to us because of chest discomfort, dizziness, palpitations. Chest discomfort is nonexertional, relieved with nitroglycerin, sometimes burning sometimes sharp. He had a stress test earlier this month that was negative for ischemia. EF was preserved. No regional wall motion abnormalities. He had a heart cath in 2009 which showed mild coronary artery disease. Palpitations: Patient occasionally feels a strong heartbeat and occasionally he feels his heart racing. He has not had this for a few days. When his heart does race it lasts about 2 minutes. He had a Holter in February 2019 which showed short run of SVT (10 beats) and short run of nonsustained V. tach (5 beats). Patient does have a resting heart rate in the 50s but when he does walk it goes up according to the patient. Dizziness: This is more when he gets up from a sitting position. But he also has dizziness when he turns his head certain ways, when he is in a car and the bus driver/monitor makes sharp turns and when he closes his eyes and turns in the shower. 06/04/2019: Patient's symptoms have improved. He has not had any palpitations over the last 2 weeks. Chest pain is better. His dizziness has also improved significantly with meclizine. If he does not take meclizine he notices that his dizziness is worse. 12/03/2019: Patient is doing well overall. He had angioedema with lisinopril and that has been stopped. He has noticed fatigue. Otherwise does not have cardiac symptoms. 02/19/2020: Patient was seen in the hospital earlier this month when he had presented with congestive heart failure. He was found to have new onset severe LV dysfunction. He underwent coronary angiography which did not reveal significant obstructive stenoses. He was not started on LASHONDA inhibitor because of history of angioedema with it in the past. He was discharged home on carvedilol, Lasix once a day. He was having some chest tightness and had called our office about a week back. We increased the Lasix to 40 mg p.o. twice daily and checked a BMP which revealed potassium of 3.2. Patient still has some episodes of chest tightness but overall has noticed some improvement. 03/04/2020: Patient has noticed overall improvement with continuing the Lasix twice daily. 05/28/2020: Patient is doing well. He denies any chest pain, shortness of breath, edema, palpitations. He does have some occasional dizziness when he bends over. He has not had his 2D echo yet.He has history of angioedema with lisinopril. 07/09/2020: Patient is doing well. He denies any syncope, chest pain etc. He does get some orthostatic dizziness and has some dyspnea on exertion which is his baseline. 08/05/2020: Patient is doing well. He denies any cardiac complaints. His EF continues to remain low. Intake Vital Signs see chart Allergies LASHONDA Inhibitors Allergy (Severe, Verified 08/05/20 14:56) Angioedema lisinopril Allergy (Severe, Verified 08/05/20 14:56) Angioedema Medications fluoxetine 20 mg capsule 20 mg PO BID cap 04/23/19 [History Confirmed 08/05/20] gabapentin 400 mg capsule 400 mg PO TID cap 04/23/19 [History Confirmed 08/05/20] nitroglycerin 0.4 mg sublingual tablet 0.4 mg SUBLINGUAL Q5-15M PRN 04/23/19 [History Confirmed 08/05/20] Atorvastatin Calcium [Lipitor] 10 mg PO DAILY 04/27/19 [History Confirmed 08/05/20] mirtazapine 15 mg tablet 15 mg PO DAILY tab 12/03/19 [History Confirmed 08/05/20] furosemide 40 mg tablet 40 mg PO BID #180 tab 02/13/20 [Rx Confirmed 08/05/20] albuterol sulfate 0.63 mg/3 mL solution for nebulization 0.63 mg INHALATION TID ml 02/19/20 [History Confirmed 08/05/20] carvedilol 6.25 mg tablet 6.25 mg PO BID #180 tab 03/04/20 [Rx Confirmed 08/05/20] potassium chloride 20 mEq tablet,extended release 40 meq PO DAILY #180 tab 03/04/20 [Rx Confirmed 08/05/20] hydralazine 25 mg tablet 25 mg PO TID #270 tab 05/29/20 [Rx Confirmed 08/05/20] isosorbide mononitrate 30 mg tablet,extended release 24 hr 30 mg PO DAILY #90 tab 05/29/20 [Rx Confirmed 08/05/20] amlodipine 5 mg tablet PO 07/09/20 [History Confirmed 08/05/20] rivaroxaban 20 mg tablet 20 mg PO DAILY 07/09/20 [History Confirmed 08/05/20] Ejection fraction %: 30 to 34 [facility] Medical History Ischemic cardiomyopathy (Chronic) Left ventricular apical thrombus (Chronic) Palpitations (Chronic) Essential hypertension (Chronic) Angioedema due to angiotensin converting enzyme inhibitor (LASHONDA-I) (Resolved) Pulmonary fibrosis (Chronic) Stage 2 moderate COPD by GOLD classification (Chronic) Dizziness (Chronic) Tobacco abuse (Chronic) Dyspnea (Chronic) Overweight (BMI 25.0-29.9) (Chronic) CKD (chronic kidney disease) (Chronic) Chronic abdominal pain (Chronic) GERD (gastroesophageal reflux disease) (Chronic) Depressive disorder (Chronic) Essential hypertension (Chronic) Hiatal hernia (Chronic) Acute kidney injury (Resolved) Aneurysm of infrarenal abdominal aorta (Resolved) Bradycardia (Resolved) Cephalgia (Resolved) Chest pain (Resolved) Myocardial infarct, old (Resolved) Symptomatic bradycardia (Resolved) Testicular cancer (Resolved) Surgical History History of left heart catheterization (Chronic 02/08/20) History of AAA (abdominal aortic aneurysm) repair (Resolved) History of arthroscopic knee surgery (Resolved) History of corneal transplant (Resolved) History of foot surgery (Resolved) History of knee surgery (Resolved) History of orchiectomy (Resolved) History of surgery on left wrist (Resolved) History of tonsillectomy (Resolved) Trigeminal neuralgia (Resolved) Family History Father Cancer bone AAA (abdominal aortic aneurysm) Grandfather AAA (abdominal aortic aneurysm) Uncle AAA (abdominal aortic aneurysm) Social History (Updated 08/05/20 @ 15:[address] Ej Emerson MD) Smoking Status: Current some day smoker tobacco type: cigars per week: 14 Tobacco: How many years used: 50 alcohol intake: never substance use type: does not use caffeine: Yes Type: coffee Number of servings: 5 ROS Const Const: Positive for fatigue and weakness; negative for headache(s), frequent falls, difficulty sleeping or excessive sweating Eyes Eyes: Negative for loss of peripheral vision, transient loss of vision, blurry vision, double vision or tunnel vision ENT ENT: Positive for balance problems; negative for headache(s), dizziness or Nosebleed/epistaxis Cardio Chest Pain: No Palpitations: No Edema: None Muscle aches with walking: None Resp Respiratory: Positive for SOB with activity; negative for SOB at rest, SOB orthopnea\SOB lying down, Cough or paroxysmal nocturnal dyspnea GI GI: Negative nausea, vomiting, heartburn or black,tarry stools : Negative for hematuria Musc Musc: Positive for joint pain and balance problems; negative for muscle aches/ myalgia or muscle weakness Skin Skin: Negative non-healing lesions, rash or unusual bruising Neuro Neuro: Positive for weakness; negative for dizziness, lightheadedness, near syncope, syncope, frequent falls, headache(s), blurry vision, double vision or lack of coordination Juan M Hematologic/Lymphatic: Negative for easy bleeding or easy bruising Endo Endo: Positive for fatigue; negative for excessive sweating or increased thirst/drinking Psych Psych: Negative for anxiety or depression Allergy Allergy/Immunology: Negative for hives, Negative for rash Cardiology Exam Const Appearance: cooperative; negative acute distress Nutritional Appearance: well nourished Head Head: normocephalic and atraumatic Ears: hearing grossly normal bilaterally Nose: external nose normal Face and Sinus: face symmetric Mouth: moist mucous membranes Teeth and gingiva: fair dentition Eyes General: appearance normal, both eyes and all related structures Eyelids: eyelids normal Conjunctivae: conjunctivae normal Neck Neck: trachea midline and no JVD GI GI: normal to inspection Neuro General: alert, awake and oriented x3 Gait: Negative ataxic Skin Skin: no rashes or lesions noted; negative atrophy or jaundice Musculoskel Musculoskeletal: No joint tenderness Psych Psychological: normal affect Assessment & Plan 1. LV dysfunction I51.9 Plan Patient has severe nonischemic cardiomyopathy.Repeat echo revealed an EF of 30 to 35%. He is not on an LASHONDA inhibitor because of angioedema with it. Continue current medications. We will refer him to EP service for an AICD. Risks and benefits discussed with the patient in detail. Patient understands the risks and benefits and wishes to proceed. He was given an option not to have an AICD placed as well. 2. Left ventricular apical thrombus I51.3 Plan Not seen in the current echo. continue Xarelto for now. 3. Essential hypertension I10 Plan Continue present management 4. Ischemic cardiomyopathy I25.5 Plan continue current meds A SDM interaction occurred at this visit using an SDM tool prior to initial implant of ICD. Procedure Criteria Procedure Type: Elective COVID Risk Discussion: The surgeon/proceduralist and patient have discussed in detail the risk of exposure to and/or potential harm posed by the COVID-19 virus with having a surgery/procedure at this time versus the risk of delaying the surgery/procedure. It is not possible to know either the risk of delaying the surgery or procedure or chance of getting an infection with perfect accuracy, but a joint decision was made between the patient and the surgeon/proceduralist to proceed at this time with the scheduled surgery/procedure as indicated on the consent form.
--- NOTE | 2020-08-21 13:06 | PCM.OPRPT ---
Report of Operation Date of Procedure: 08/21/20 Description of Procedure: Diagnosis: Nonischemic Cardiomyopathy with NYHA Class II; Left ventricular ejection fraction 30% despite optimal medical therapy. ICD for primary prevention Preoperative diagnosis implantation of singfle chamber [employer] ICD Postoperative diagnosis same as above After informed consent and IV antibiotics the patient was brought to the [place] catheterization laboratory. The left side of the chest was prepped and draped in the usual sterile manner. The patient was sedated with intermittent boluses of IV Versed and fentanyl as well as subcutaneous 1% lidocaine. An incision was made inferior to the clavicle to accommodate the size of the hardware device. The pocket was created using blunt and Bovie dissection. Hemostasis was obtained. Using the Seldinger technique the axillary vein was cannulated once and a guidewire was advanced under fluoroscopic guidance. Over the guidewire a sheath was advanced. Through this sheath, the electrode was positioned under fluoroscopic guidance into the right ventricle and was actively fixated. Once actively fixated, the lead was tested to check for proper sensing, capture threshold, impedance and to exclude diaphragmatic stimulation. Once the lead was implanted and all electrical parameters were confirmed to be functioning normally with appropriate values, the leads was then sutured to the pectoralis muscle with 2-0 silk on the Silastic collar ?2. The sponge and needle count were correct. Hemostasis was obtained. Antibiotic solution was used to flush the pocket. The new device was brought to the field. The lead was placed in the appropriate position of the header of the device and were secured by the setscrews and confirmed by the tug test. The device and the leads were then placed in the pocket. Pocket was closed with a deep layer of running 2-0 Vicryl, superficial layer of running 4-0 Vicryl and skin with Steri-Strips that were covered with a rolled 4 x 4's and Tegaderm. The patient left the lab with the device programmed to chronic parameters. There were no complications. Implanted system is a single chamber [employer] ICD Lead and device serial and model numbers are available in the chart documents provided by the device company customer retention representative procedure summary.
[2020-08-21] MEDS: Gabapentin 400 MG Capsule PO ×2 (14:22→21:14)
[2020-08-21] MEDS: hydrALAZINE 25 MG Tablet PO ×2 (14:22→21:14)
--- NOTE | 2020-08-21 15:05 | RAD_ITS ---
STUDY: X-RAY CHEST REASON FOR EXAM: Male, 70 years old. POST PERMANENT ICD PLACEMENT, 2 HOURS -- INSPIRATION VIEW TECHNIQUE: 1 view COMPARISON: Prior chest radiograph of 02/05/2020 FINDINGS: A right ventricular defibrillator lead is in good position introduced through the left subclavian approach. The lung ny are well expanded with mild bibasilar interstitial changes without consolidation, focal atelectasis or pleural effusion. Negative for pneumothorax. Mild cardiomegaly. Normal mediastinum and leanne. Normal visualized pulmonary arteries. There is atherosclerotic calcification of the aortic arch with tortuosity. Normal visualized thoracic spine. Normal visualized ribs, clavicles, and shoulders. There is no demonstrated abnormality of the visualized soft tissue structures of the upper abdomen. RAD/Chest PA and Lateral IMPRESSION: Right ventricular defibrillator lead is in good position with no untoward sequelae of line placement. Mild bibasilar interstitial opacity. Mild cardiomegaly. Atherosclerotic changes of the aorta. Electronically Signed: Stephanie Hernández MD at 15:43 EDT , Service support ,
--- NOTE | 2020-08-21 15:05 | RAD_ITS ---
STUDY: X-RAY CHEST REASON FOR EXAM: Male, 70 years old. POST PERMANENT ICD PLACEMENT, 2 HOURS -- EXPIRATION VIEW TECHNIQUE: Single AP portable view of the chest. COMPARISON: None. FINDINGS: Left subclavian single lead AICD. Expiratory view with some bibasilar atelectasis. No pneumothorax. There is moderate cardiac enlargement. Normal mediastinum and leanne. Normal visualized pulmonary arteries. Normal visualized aortic arch and descending thoracic aorta. Normal visualized thoracic spine. Normal visualized ribs, clavicles, and shoulders. There is no demonstrated abnormality of the visualized soft tissue structures of the upper abdomen. RAD/Chest 1 View (Portable) IMPRESSION: No pneumothorax after left AICD placement. Electronically Signed: Salty Victoria MD at 7:51 EDT Tel , Service support ,
[2020-08-21] MEDS: Acetaminophen 325 MG Tablet PO (18:44)
[2020-08-21] MEDS: Albuterol 2.5 MG/3 ML VIAL.NEB. INHALATION (19:35)
[2020-08-21] MEDS: Atorvastatin Calcium 10 MG Tablet PO (21:14)
[2020-08-21] MEDS: Carvedilol 6.25 MG Tablet PO (21:14)
[2020-08-21] MEDS: FLUoxetine 20 MG Capsule PO (21:15)
[2020-08-21] MEDS: Mirtazapine 15 MG Tablet PO (21:19)
[2020-08-21] MEDS: Morphine 2 MG/ML Syringe IV (21:23)
[2020-08-22] VITALS (7 sets, daily range): BP systolic 173–177; BP diastolic 84–85; PULSE 44–60; RESP 12–18; TEMP 36.4–36.7; O2SAT 93–97
[2020-08-22] MEDS: Acetaminophen 325 MG Tablet PO ×2 (01:11→07:42)
[2020-08-22] MEDS: hydrALAZINE 25 MG Tablet PO (05:34)
[2020-08-22] MEDS: Gabapentin 400 MG Capsule PO (05:35)
[2020-08-22] MEDS: Albuterol 2.5 MG/3 ML VIAL.NEB. INHALATION (06:54)
--- NOTE | 2020-08-22 08:18 | DCINST_ITS ---
Discharge Diet: No Restrictions Discharge Activity: May Not Drive Call your doctor if your incision/area has: Continuous Slow Oozing, Sudden Increased Bleeding, Increased Pain/ Swelling, Increased Redness, Foul Smelling Discharge, Swelling at the incision site Call your doctor if you observe: Fever of 101 or Higher, Shortness of breath, Dizziness, Fainting spells, Swelling in the ankles, Chest pain, Prolonged hiccoughing, Increased palpitations (irregular heartbeat) Additional Dressing/Incision Instructions:: When dressing is removed, wash and dry incision. Keep covered with a light bandage if it is rubbing against your clothing. Do not cover the incision with an airtight bandage. Change the bandage daily. Do not remove steri strips. The strips will fall off on their own. Additional Instructions: Signs and Symptoms to Report to Your Doctor at Once - call your doctor's office or Doctor's Registry ([phone]) Call 911 or go to the nearest Emergency Department if you feel you need urgent care. *Infection (fever, increased redness or swelling at the incision site, drainage from the incision increased pain at the pacemaker site) *Shortness of breath *Dizziness *Fainting spells *Swelling in the ankles *Chest pain *Prolonged hiccoughing *Increased palpitaitons (irregular heartbeat) Medications: Take your pain medication as directed. Refer to your discharge instruction sheet for a list of medications you are to take. Allergies/Adverse Reactions: Allergies LASHONDA Inhibitors Allergy (Severe, Verified 08/05/20 14:56) Angioedema lisinopril Allergy (Severe, Verified 08/05/20 14:56) Angioedema Medications to take at Discharge fluoxetine 20 mg capsule 20 mg PO BID cap 04/23/19 gabapentin 400 mg capsule 400 mg PO TID cap 04/23/19 nitroglycerin 0.4 mg sublingual tablet 0.4 mg SUBLINGUAL Q5-15M PRN 04/23/19 Atorvastatin Calcium [Lipitor] 10 mg PO DAILY 04/27/19 mirtazapine 15 mg tablet 15 mg PO DAILY tab 12/03/19 furosemide 40 mg tablet 40 mg PO BID #180 tab 02/13/20 albuterol sulfate 0.63 mg/3 mL solution for nebulization 0.63 mg INHALATION TID ml 02/19/20 carvedilol 6.25 mg tablet 6.25 mg PO BID #180 tab 03/04/20 potassium chloride 20 mEq tablet,extended release 40 meq PO DAILY #180 tab 03/04/20 hydralazine 25 mg tablet 25 mg PO TID #270 tab 05/29/20 isosorbide mononitrate 30 mg tablet,extended release 24 hr 30 mg PO DAILY #90 tab 05/29/20 amlodipine 5 mg tablet 5 mg PO DAILY 07/09/20 rivaroxaban 20 mg tablet 20 mg PO DAILY 07/09/20 Primary Care Physician: Archie Flores MD [Primary Care Provider] - Test Results: Test results from this visit will be discussed in further detail at your follow- up appointment, if applicable. When: [facility] APPT [facility] AT 9;30AM Proposed Discharge Date: 08/22/20
--- NOTE | 2020-08-22 09:21 | NURSING ---
Morning medications offered, patient wants to take at home.
== END 2020-08-22 08:21 | disposition home or self-care (01) ==
LOC: CLSP 08:17 → PCU 08-22 06:21
PROVIDERS: PCP Family Medicine; Referring Provider Specialist; Visit Provider Specialist
DX: I11.9 Hypertensive heart disease without heart failure (principal); I25.5 Ischemic cardiomyopathy; Z79.01 Long term (current) use of anticoagulants; Z88.8 Allergy status to other drugs, medicaments and biological substances; Z95.810 Presence of automatic (implantable) cardiac defibrillator; F17.210 Nicotine dependence, cigarettes, uncomplicated; E66.3 Overweight; Z68.25 Body mass index [BMI] 25.0-25.9, adult; K21.9 Gastro-esophageal reflux disease without esophagitis; F32.9 Major depressive disorder, single episode, unspecified
CPT/HCPCS: 33249; 36415; 71045; 71046; 80048; 81001; 85027; 85610; 93641; 94640; 99152; 99153; J7040; J7050; C1894

== ENCOUNTER → 2020-12-13 08:46 | Outpatient (CLI) | payer MEDICARE, SELFPAY ==
[2020-11-19 09:16] VITALS: BMI 27.3
--- NOTE | 2020-12-13 08:49 | CT_ITS ---
STUDY: LOW DOSE CT LUNG CANCER SCREENING REASON FOR EXAM: Male, 70 years old. TOBACCO USE, 1 PPD X 40 YRS. RADIATION DOSAGE (If Supplied By Facility): CTDIvol = ( 3.02 ) mGy, DLP = ( 98.92 ) mGycm TECHNIQUE: No contrast was administered. Low dose technique was utilized (average mAS-38 and kVp 120). 1.25 mm axial source images with a slice interval of 1.25-mm were reconstructed in lung windows. 2.5 mm axial source images with a slice interval of 2.5-mm were reconstructed in lung windows. 5.0 mm axial source images with a slice interval of 5.0-mm were reconstructed in soft tissue windows. Nodule measured using lung windows on PACS and/or independent workstation with automated measurement of minimum and maximum diameter. Nodule measurement reported as average diameter rounded to the nearest whole number. Growth is defined as an increase ins size of greater than 1.5 mm. COMPARISON: 02/05/2020 NODULES: Total lung nodules (excluding granulomas): None Emphysema: Hyperinflation with bronchiectasis, intralobular septal thickening and subpleural reticulation. Several subpleural cysts of the bilateral lower lobes. Endobronchial lesion: None Aorta: Atherosclerosis without aneurysm Coronary arteries: Mild atherosclerosis. Heart: Heart size is normal. Two lead cardiac conduction device is seen via the left subclavian vein with lead tips projecting over the right atrium and right ventricle, respectively. Pulmonary artery: Unremarkable for unopacified technique. Mediastinal nodes: No mediastinal adenopathy. Other chest and abdominal findings: Atrophy of the left kidney, incompletely visualized. CT/Low Dose CT Lung Screening IMPRESSION: 1. Lung-RADS category 1 - Continue annual screening with LDCT in 12 months. 2. Moderate parenchymal fibrosis with traction bronchiectasis and subpleural cysts, potentially honeycombing. IMPORTANT NOTES FOR USE: ACR Lung-RADS Version 1.0 Assessment Categories Release Date: February 18, 2014 Category: Coded 0-4 bases on nodule(s) with highest degree of suspicion. Negative screen is defined as categories 1 and 2; a positive screen is defined as categories 3 and 4. Category 3 and 4A nodules that are unchanged on interval CT should be coded as category 2, and individuals returned to screening in 12 months. Category 4X: Category 3 or 4 nodules with additional imaging findings that increase the suspicion of lung cancer, such as spiculation, GGN that doubles in size in 1 year, enlarged lymph notes, etc. Category Modifiers: S (significant finding unrelated to lung cancer) and C (prior history of treated lung cancer) may be added to the 0-4 Lung-RADS Electronically Signed: Lucio Coleman MD ([place]) at 17:13 EST , Service support ,
== END ==
PROVIDERS: PCP Family Medicine; Referring Provider Nurse Practitioner Acute Care; Visit Provider Nurse Practitioner Acute Care
DX: Z12.2 Encounter for screening for malignant neoplasm of respiratory organs (principal); F17.210 Nicotine dependence, cigarettes, uncomplicated
CPT/HCPCS: 71271

== ENCOUNTER 2021-04-28 09:49 | Day surgery (SDC) | payer MEDICARE, SELFPAY ==
[2021-02-11 12:48] VITALS: BMI 27.2
--- NOTE | 2021-04-24 09:18 | EKG12_ITS ---
Test Reason : PREOP Blood Pressure : / mmHG Vent. Rate : 048 BPM Atrial Rate : 048 BPM P-R Int : 186 ms QRS Dur : 100 ms QT Int : 504 ms P-R-T Axes : 053 -23 203 degrees QTc Int : 450 ms Sinus bradycardia Left ventricular hypertrophy with repolarization abnormality Anteriolateral ischemia cannot be excluded Abnormal ECG Confirmed by SINAI BRAXTON, GUILLERMO ([id number]), technical writer and editor SHANIQUA GALAN ([id number]) on 04/29/2021 2:27:54 PM Referred By: Yulissa Yoder Confirmed By:GUILLERMO RAWLS MD
[2021-04-24 10:12] LABS: Hematocrit 42.8 % (40-54); Hemoglobin 13.7 g/dL (13.0-16.5); Mean Corpuscular Hgb 32.1 pg (27.0-32.0); Mean Corpuscular Volume 100.2 fL (80-94); Mean Platelet Vol. 10.6 fl (6.2-12.0); Platelet Count 157 K/mm3 (150-450); RBC Distribution Width CV 14.9 % (11.6-14.6); RBC Distribution Width SD 55.5 fl (35.1-43.9); Red Blood Count 4.27 M/mm3 (4.6-6.2); White Blood Count 6.7 K/mm3 (4.4-11.0)
[2021-04-24 10:15] LABS: International Normalized Ratio 1.1; Prothrombin Time (Protime)PT. 13.3 SECONDS (11.7-14.9)
[2021-04-24 10:16] LABS: Partial Thromboplast Time 29.7 Seconds (24.1-36.2)
[2021-04-24 10:59] LABS: AST(SGOT) 16 U/L (15-37); Alanine Aminotransfer ALT/SGPT 20 U/L (16-61); Albumin, Serum 3.6 g/dL (3.2-5.0); Alkaline Phosphatase 132 U/L (45-117); Anion Gap 6 (5-15); BUN 16 mg/dL (7-18); BUN/Creat Ratio 10.9 RATIO (10-20); Bilirubin, Direct 0.12 mg/dL (0.00-0.30); Calcium,Total 8.9 mg/dL (8.5-10.1); Chloride 103 mmol/L (98-107); Creatinine, Serum 1.47 mg/dL (0.70-1.30); EST Glomerular Filtration Rate 51 mL/min (>60); Est Glom Filt Rate - Afr Amer 61 mL/min (>60); Globulin 3.9 g/dL (2.2-4.2); Glucose 106 mg/dL (74-106); Potassium 4.1 mmol/L (3.5-5.1); Protein, Total 7.5 g/dL (6.4-8.2); Sodium Level 138 mmol/L (136-145)
--- NOTE | 2021-04-27 14:42 | PCM.HP.BLA ---
History and Physical Date of Admission: 04/28/21 Teodoro Wolfe - 1950 ? CHIEF COMPLAINT: Consult (Periumbilical Pain, Ventral Hernia) ? HPI: The patient is a 71 year old male presents with an abdominal wall swelling and possible hernia He denies previous hernia repair. He had a previous AAA open surgery. He has noted a palpable mass around the periumbilical area. He has noted this for about a month. He denies episode of incarceration. He notes increasing discomfort in the area He denies GI/ obstructive symptoms. CT scan 04/15/2021 - small fat containing superumbilical hernia, cholelithiasis, my review - also umbilical hernia ? ? PAST MEDICAL HISTORY AAA (abdominal aortic aneurysm) (HCC) 5 cm. Abdominal pain, unspecified site ? Acute bronchitis with chronic obstructive pulmonary disease (COPD) (HCC) 12/10/2019 Acute kidney injury (CHERY) with acute tubular necrosis (ATN) (HCC) ? Bronchiectasis with acute lower respiratory infection (HCC) ? Depressive disorder, not elsewhere classified ? Emphysema of lung (HCC) 05/09/2019 GERD (gastroesophageal reflux disease) ? Heart attack (HCC) was told he had an NV at some time, but not sure when Hernia, hiatal ? Moderate episode of recurrent major depressive disorder (HCC) 05/29/2018 Palpitations 03/01/2016 7 beat SVT, otherwise holter WNL Renal artery aneurysm (HCC) Left Respiratory failure (HCC) ? Snoring ? Symptomatic bradycardia ? Testicular cancer (HCC) ~1987 s/p Orchiectomy and radiation. Tobacco use disorder 09/14/2011 Trigeminal neuralgia ? PAST SURGICAL HISTORY COLONOSCOP W/ OR W/O [facility] SPEC 2009 Colonoscopy, polyps COLONOSCOP W/ OR W/O [facility] SPEC ? 01/09/2019 CORNEAL TRANSPLANT,PENETRATING [address] LUNG CANCER SURVEY Bilateral 12/13/2020 rads cat 1: cont annual screening; moderate parynchymal fibrosis, traction bronchiectasis DEFIBRILLATOR SURGERY ? ? EGD EUS ? 07/05/2019 EGD W/O OR W/BRUSH/WASH ? ? EGD W/O OR W/BRUSH/WASH ? 01/09/2019 FOOT SURGERY HX Bilateral 2015 plantar fasciaitis KNEE ARTHRO SRG DRILL OSTEOCHONDRITIS ? ? LEFT HEART CATH 03/02/2016 Normal coronaries, LVEDP 60, right radial access LEFT HEART CATH,PERCUTANEOUS Cardiac cath, L heartX3 PART EXCIS PLANTAR FASCIA ? 06/2010 PAST SURGICAL HISTORY OF knee surgery-right and left knee PAST SURGICAL HISTORY OF Left tendon repair wrist REMOVAL OF TONSILS,<14 Y/O ? ? REMOVAL TESTIS,SIMPLE Left Orchiectomy for ca. S STENT ANEURX AORTIC EXT CUFF ? 06/2017 Current Outpatient Medications Cholecalciferol, Vitamin D3, 50 mcg (2,000 unit) cap Take 1 capsule by mouth once daily. gabapentin (NEURONTIN) 400 mg capsule Take 1 capsule by mouth three times daily for 183 days. FLUoxetine (PROZAC) 20 mg capsule Take 2 capsules by mouth once daily. mirtazapine (REMERON) 15 mg tablet Take 0.5 tablets by mouth daily at bedtime. atorvastatin (LIPITOR) 10 mg tablet Take 1 tablet by mouth once daily. furosemide (LASIX) 40 mg tablet Take 1 tablet by mouth twice daily. pantoprazole DR (PROTONIX) 40 mg tablet Take 1 tablet by mouth twice daily before meals. Take on empty stomach, 1/2 hr before meal. (Patient not taking: Reported on 04/14/2021 apixaban (ELIQUIS) 5 mg tab(s) apixaban Apixaban Active 5 MG TWICE A DAY 60 February 08, 2020 11:18am 02-08-2020 [facility] ([id number]) (Patient not taking: apixaban Apixaban Active 5 MG TWICE A DAY 60 February 08, 2020 11:18am 02-08-2020 [facility] ([id number])) hydrALAZINE (APRESOLINE) 25 mg tablet ? isosorbide mononitrate ER (IMDUR) 30 mg 24 hr tablet ? amLODIPine (NORVASC) 5 mg tablet Take 1 tablet by mouth once daily. carvedilol (COREG) 6.25 mg tablet Take 1 tablet by mouth twice daily. potassium chloride (K-TAB) 10 mEq tablet Take 1 tablet by mouth daily with breakfast. ipratropium-albuterol (DUONEB) 0.5 mg-3 mg(2.5 mg base)/3 mL nebu Inhale 3 mL as instructed every 6 hours as needed. albuterol HFA (PROVENTIL HFA) 90 mcg/actuation inhaler Inhale 2 Puffs as instructed every 4 hours as needed. ANORO ELLIPTA 62.5-25 mcg/actuation inhaler INHALE 1 PUFF BY MOUTH EVERY 24 HOURS nitroglycerin sublingual (NITROQUICK) 0.4 mg SL tablet Dissolve 1 tablet under the tongue as needed. FOR CHEST PAIN. IF NO RELIEF CALL 911 ? ALLERGIES: Lisinopril ? PERSONAL HISTORY: Tobacco Use Smoking status: Current Every Day Smoker ? ? Packs/day: 1.00 ? ? Years: 40.00 ? ? Pack years: 40.00 ? ? Types: Cigars, Cigarettes Smoeless tobacco: Never Used Tobacco comment: smokes about 2-5 cigars per day Vaping Use? Vaping Use: Never used Substance Use Topics Alcohol use: No ?Comment: Quit drinking when he 1st got at age 22. Drug use: No ? FAMILY HISTORY other (AAA) Father? bone cancer other (AAA) Paternal Grandfather ? other (AAA) Paternal Uncle ? ? The review of systems data was entered by the nurse and reviewed by me ? Nursing otes: Constance De La Torre LPN 04/20/2021 9:32 AM Signed REVIEW OF SYSTEMS: General: has increased tiredness according to spends most of day laying around and in bed, NOTES fatigue, denies weight loss, denies weight gain, denies feeling hot, and NOTES feelings of cold. Eyes: The patient denies glaucoma, NOTES eye injury/surgery, wears glasses or contacts. Ear/Nose/Throat: The patient denies allergies, denies hayfever, denies ear infections, and denies bloody noses. Cardiovascular: The patient NOTES chest pain, denies heart disease, NOTES high blood pressure,denies cardiac stent, denies prior heart attack, denies irregular heart beat, denies high cholesterol, denies poor circulation, denies heart failure, other cardiac issues, denies claudication, denies cold feet, denies peripheral arterial stent. Respiratory: The patient denies tuberculosis, denies pneumonia, NOTES frequent cough, denies pulmonary embolism, NOTES shortness of breath, and denies coughing up blood. Gastrointestinal: The patient denies difficulty swallowing, NOTES acid reflux, denies ulcers, denies vomiting, denies jaundice/hepatitis, denies gallbladder problems, denies black or tarry stools, denies hemorrhoids, denies bleeding from rectum, denies diverticulitis, denies constipation, denies diarrhea, denies loss of stool control, and NOTES hernias. Kidney/Bladder: The patient denies kidney stones, denies urine infections, and denies bloody urine. Skin: The patient denies a history of skin cancer, denies bleeding/changing moles, and denies a history of skin rash. Neurologic: The patient denies a history of epilepsy/convulsions, NOTES headaches, denies head/spinal injuries, and denies stroke/TIA. Psychiatric: The patient denies psychiatric medications, denies depression, and denies voices, denies substance abuse. Endocrine: The patient denies thyroid disorders, denies diabetes, and denies hormonal problems. Hematologic: The patient NOTES a history of bruising, denies bleeding, and denies anemia, denies blood clots. Infections: The patient denies a history of measles and mumps, denies rheumatic fever, and denies sexually transmitted diseases. Musculoskeletal: The patient NOTES back pain/injury, NOTES back problems, denies sciatica, NOTES knee/foot trouble, NOTES arthritis, or denies gout. When was patient's last Mammogram screening? N/A Last Colonoscopy: 01/09/2019 Constance De La Torre LPN ? PHYSICAL EXAMINATION: General: The patient is 71 year old male, well nourished, well hydrated in no acute distress. The patient is oriented to time, place, and person. VITALS: Blood pressure 132/64, pulse 63, temperature 36.8 ?C (98.3 ?F), height 167.6 cm (5' 6), weight 79.4 kg (175 lb), SpO2 94 %. Body mass index is 28.25 kg/m?. Head ? Normocephalic. EOM intact with sclera clear and no icterus noted. Neck - supple with no jugular venous distention noted. Trachea is midline. Lungs ? clear to auscultation. Normal breath sounds. No rales/rhonchi/wheezing noted. No labored breathing noted, such as retractions. No cough heard. Heart ? normal S1 and S2 auscultated. No rubs/clicks/murmurs noted. Regular rate. Abdomen ? soft and benign. Normal bowel sounds. Ventral incisional hernia and umbilical hernia - reducible. Difficult to determine if any masses or organomegaly due to body habitus. Extremities ? no calf tenderness noted. No pitting edema noted. Skin ? normal skin integrity. Neurological ? gait normal, no focal deficits noted. Psych ? calm and appropriate RADIOLOGIC STUDIES: As Noted ? IMPRESSION: incisional hernia and umbilical hernia ? PLAN: I have discussed the above with the patient and his who is present with him. I have reviewed the CT scan findings - clinically and by CT scan there appears to be two hernias - one incisional and the other umbilical. I have offered hernia repair. I have explained the procedure to the patient. I have counseled the patient as to the risks of the procedure, including but not limited to: infection, bleeding, injury to any blood vessels/nerves, scar tissue, injury to any intrabdominal organs, injury to bowel/bladder, intraabdominal abscess/bleeding, recurrence of hernia (given patient's body habitus and he smokes cigars), wound infections, complications of anesthesia, etc. ? the patient understands. The patient wishes to proceed. I have answered all questions to the patient?s satisfaction and the patient has no further questions. ? Diagnoses: (R10.33) Periumbilical abdominal pain (K43.9) Ventral hernia without obstruction or gangrene (R19.05) Periumbilical mass Return to Clinic: The patient is instructed to follow-up with me after the procedure. ? ? Yulissa Yoder MD
[2021-04-28] VITALS (8 sets, daily range): BP systolic 132–165; BP diastolic 67–86; PULSE 47–57; RESP 16; TEMP 36–36.5; O2SAT 90–99; BMI 27.1
[2021-04-28] MEDS: Lactated Ringers 1,000 ML 75 ML IV (10:21)
[2021-04-28] MEDS: Cefazolin 2 GM in 0.9% Normal Saline 100 ML IV (11:34)
--- NOTE | 2021-04-28 12:13 | PCM.OPRPT ---
Report of Operation Date of Procedure: 04/28/21 Pre-Operative Diagnosis: ventral hernia Post-Operative Diagnosis: incisional ventral hernia and umbilical hernia Surgery/Procedure Performed:: ventral hernia repair Description of Surgical Findings:: incisional ventral hernia, umbilical hernia noted also Surgeon: Yulissa Yoder monitor and storage bin tender: Carol Barrera Type of Anesthesia: General Anesthesiologist: Avtar Trejo Specimen's removed: none Drains: none Estimated Blood Loss (mL): < 10 ml Fluids Replaced: 1000 ml RL Description of Procedure: After informed consent was given, the patient was brought to the Operating Room. Appropriate time out protocol was followed. The patient was then placed under general endotracheal anesthesia. The abdomen was then prepped with a sterile surgical skin preparation and sterile surgical drapes were placed. The patient had a previous midline abdominal incision. Around the periumbilical area, the skin and subcutaneous tissue were infiltrated with local anesthestic. The incision was then re-incised with a 15 blade scalpel and carried down to the subcutaneous tissues using electrocautery. The intraabdominal cavity was then entered by incising the fascia. This was done carefully to avoid injuries to any internal organs. There were omental adhesions to the anterior abdominal wall in this area and these were taken down by electrocautery. There was a palpable small incisional ventral hernia. Also noted was a small umbilical hernia - fascial defect. Both defects were less than 2 cm in maximum dimension. There were fatty tissues incarcerated at both sites, these were taken down by blunt and sharp dissection and any bleeding controlled with electrocautery. The midline fascia was then reapproximated with running #1 PDS suture, closing the fascia beyond both fascial defects. This was checked with palpation of the tissues from within the abdomen and once closure would be complete, there were no other fascial defects noted. The wound was carefully checked for hemostasis and no active bleeding was noted. The miya's fascia was reapproximated with running vicryl suture. The skin incision was reapproximated with running monocryl suture in a subcuticular fashion. Steristrips and cavilon were used to reinforce the skin closure Appropriate sterile dressing was applied. The patient was extubated and brought to the Recovery Room in stable condition. Complications none noted Admit VTE Documentation VTE Present on Admission: Yes VTE Mechan Device Prophylaxis: SCD's
[2021-04-28] MEDS: Lidocaine 1%/Epi 1:200 (30ml) 30 ML AMPUL (12:15)
--- NOTE | 2021-04-28 12:30 | DCINST_ITS ---
Discharge Instructions Follow Up Care Test Results: Test results from this visit will be discussed in further detail at your follow-up appointment, if applicable. Discharge Plan Admission Attending Provider: Yulissa Yoder Primary Care Provider: Archie Flores Consulting Providers: Jonny Noriega Instructions Patient Instructions: ED Chest Pain, Noncardiac Additional Instructions / Restrictions: Recommended pain control regimen - May take 600 mg ibuprofen (Motrin) and then in 3-4 hours, may take 650 mg acetaminophen (Tylenol), then in 3-4 hours may take 600 mg ibuprofen, then in 3- 4 hours may take 650 mg acetaminophen and so on for 2-3 days May take narcotic pain medication for pain that is not controlled by above and at night for comfort through the night Leave dressings in place May shower, do not scrub in the areas of the dressings as they may unravel. If there is slight bleeding/seeping through the dressing, do not worry, this is common. If they become overly soiled you may remove them but leave incision site open to air. Or may take shower, cover drain site with towel or other such covering to prevent from getting overly wet Do not soak - no tub baths/swimming Ice applied to areas of discomfort may help No lifting/pushing/pulling greater than 10 pounds for a month. Regular diet as tolerated, drink plenty of fluids. Avoid carbonated beverages for a few days as this will cause abdominal bloating and thus discomfort after our surgery. May take over the counter laxatives if you feel constipated Please call my office for an appointment to see me in 1-2 weeks. Office number is If any questions, please call my office at and ask the forging machine operator for the general surgery nurses desk Discharge Orders/Prescriptions Prescriptions: New hydrocodone-acetaminophen 5-325 mg tablet 1 tab PO Q8H 5 Days Qty: 15 RF: 0 No Action nitroglycerin 0.4 mg tablet, sublingual 0.4 mg SUBLINGUAL Q5-15M PRN (Reason: CHEST PAIN) RF: 0 mirtazapine 15 mg tablet 15 mg PO QHS RF: 0 albuterol sulfate 0.63 mg/3 mL solution for nebulization 0.63 mg INHALATION TID PRN (Reason: SOB) RF: 0 amlodipine 5 mg tablet 5 mg PO DAILY RF: 0 fluoxetine 20 mg capsule 20 mg PO BID RF: 0 gabapentin 400 mg capsule 400 mg PO TID RF: 0 atorvastatin 10 MG tablet 10 mg PO DAILY RF: 0 potassium chloride 20 mEq tablet,ER particles/crystals 20 meq PO BID RF: 0 pantoprazole [Protonix] [address] For Susp In Packet 40 mg PO DAILY PRN (Reason: Indigestion) RF: 0 furosemide 40 mg tablet 40 mg PO BID Qty: 180 RF: 3 carvedilol 6.25 mg tablet 6.25 mg PO BID Qty: 180 RF: 3 hydralazine 25 mg tablet 25 mg PO DAILY Qty: 90 RF: 3 isosorbide mononitrate 30 mg tablet extended release 24 hr 30 mg PO DAILY Qty: 90 RF: 3 Referrals / Follow Up: Archie Flores MD [Primary Care Provider] - Disposition Disposition (needs filled in before D/C Order can be placed): Home, Self Care
[2021-04-28] MEDS: HYDROcodone Bitartrate/Apap 5/325 Tablet PO (14:38)
== END 2021-04-28 15:05 | disposition home or self-care (01) ==
LOC: SDC 09:51 → AC 09:52
PROVIDERS: Anesthesiology; PCP Family Medicine; Referring Provider Surgery; Visit Provider Surgery
PROC: (CPT 49561; principal; 2021-04-28 11:15)
DX: K42.9 Umbilical hernia without obstruction or gangrene (principal); K43.2 Incisional hernia without obstruction or gangrene; J44.9 Chronic obstructive pulmonary disease, unspecified; F17.210 Nicotine dependence, cigarettes, uncomplicated; F17.290 Nicotine dependence, other tobacco product, uncomplicated; I25.2 Old myocardial infarction; K21.9 Gastro-esophageal reflux disease without esophagitis; Z79.899 Other long term (current) drug therapy; Z88.8 Allergy status to other drugs, medicaments and biological substances; Z90.79 Acquired absence of other genital organ(s); I51.7 Cardiomegaly; N18.9 Chronic kidney disease, unspecified; R06.00 Dyspnea, unspecified
CPT/HCPCS: 00790; 49561; 49585; 36415; 80048; 80076; 85027; 85610; 85730; 87426; 93005; C9803; J7050; J7120; J2405

== ENCOUNTER → 2021-05-06 09:24 | Outpatient (CLI) | payer MEDICARE, SELFPAY ==
[2020-11-19 09:16] VITALS: BMI 27.3
[2021-04-28 10:16] VITALS: BMI 27.1
--- NOTE | 2021-05-07 10:16 | PFT ---
INTRODUCTION: The patient is a 71-year-old male that presents for pulmonary function studies secondary to a diagnosis of COPD. Respiratory therapy reports good patient effort. Bronchodilators were used during testing. INTERPRETATION: Forced expiration spirometry demonstrates the presence of a moderate large airways obstructive ventilatory defect. There was no significant response to aerosolized bronchodilators. Spirograms are of good quality but do not plateau indicating slow emptying of the lungs. Body plethysmography was performed and reveals lung volumes to be within normal limits. Diffusing capacity by single breath CO is mildly reduced at 63% of predicted. When compared to prior pulmonary function studies from April 2020, there has been a 23% improvement in diffusing capacity. IMPRESSION: Irreversible moderate large airways obstructive ventilatory defect with preserved lung volumes and mild reduction in diffusing capacity. There has been improvement in the patient's DLCO since April 2020, as noted above.
== END ==
PROVIDERS: PCP Family Medicine; Referring Provider Nurse Practitioner Acute Care; Visit Provider Nurse Practitioner Acute Care
DX: J44.9 Chronic obstructive pulmonary disease, unspecified (principal)
CPT/HCPCS: 94060; 94726; 94729

== ENCOUNTER → 2021-05-08 12:25 | Outpatient (CLI) | payer MEDICARE, SELFPAY ==
[2020-11-19 09:16] VITALS: BMI 27.3
[2021-04-28 10:16] VITALS: BMI 27.1
[2021-05-08 12:45] VITALS: PULSE 59; PULSE 63; PULSE 67; PULSE 71; PULSE 73; PULSE 75; PULSE 87; O2SAT 90; O2SAT 91; O2SAT 92; O2SAT 93
--- NOTE | 2021-05-09 05:55 | PCM.PSN.6M ---
PSN 6 Minute Walk Test 6 Minute Walk Test 6 Minute Walk Test: 6 Minute Walk Test PSN:6-Minute Walk Test Start: 05/08/21 12:45 Freq: Status: Active Protocol: [id number].6MINW Document 05/08/21 12:45 KRYSTEN (Rec: 05/08/21 12:50 KRYSTEN [id number]) 6 Minute Walk Test Date Performed 05/08/21 Time Performed 12:30 Height 5 ft 6 in Weight: 78.471 kg Weight in Pounds 173.[address]: Irene Aguirre CHIEF [employer] OFFICER Assistive device used: None Pre-test Oxygen Delivery Method Room Air Pulse Ox (%) 93 Pulse Rate (60-100 beats/min) 59 L Dyspnea Nila Scale (0-10) 1 Exertion Nila Scale (6-20) 6 1st minute Oxygen Delivery Method Room Air Pulse Ox (%) 93 Pulse Rate (60-100 beats/min) 67 2nd minute Oxygen Delivery Method Room Air Pulse Ox (%) 91 Pulse Rate (60-100 beats/min) 71 3rd minute Oxygen Delivery Method Room Air Pulse Ox (%) 92 Pulse Rate (60-100 beats/min) 73 4th minute Oxygen Delivery Method Room Air Pulse Ox (%) 90 Pulse Rate (60-100 beats/min) 87 5th minute Oxygen Delivery Method Room Air Pulse Ox (%) 93 Pulse Rate (60-100 beats/min) 67 6th minute Oxygen Delivery Method Room Air Pulse Ox (%) 91 Pulse Rate (60-100 beats/min) 75 Dyspnea Nila Scale (0-10) 1 Exertion Nila Scale (6-20) 11 Post-test Oxygen Delivery Method Nasal Cannula Pulse Ox (%) 91 Pulse Rate (60-100 beats/min) 63 Full Laps Walked 17 Partial Lap, Number of Tiles Walked 0 Total Distance Walked (ft) 1003 Interpretation Interpretation: The patient ambulated 1003 feet over the course of 6 minutes beginning on room air without assistive devices or breaks. Pretesting oxygen saturation was noted to be 93% on room air. With ambulation, the alexia oxygen saturation was 90%. There was no significant exertional oxygen desaturation. Recommendations Recommendations: There is no indication for the use of supplemental oxygen at this time.
== END ==
PROVIDERS: PCP Family Medicine; Referring Provider Nurse Practitioner Acute Care; Visit Provider Nurse Practitioner Acute Care
DX: J44.9 Chronic obstructive pulmonary disease, unspecified (principal)
CPT/HCPCS: 94618

== ENCOUNTER 2021-06-18 20:46 | Emergency (ER) | payer MEDICARE, SELFPAY ==
[2021-06-18 20:48] VITALS: BP 186/100; PULSE 60; RESP 18; TEMP 36.3; O2SAT 95; BMI 27.9
[2021-06-18 21:08] VITALS: BP 180/87; PULSE 56; RESP 18; O2SAT 96
[2021-06-18 22:05] LABS: Hematocrit 42.3 % (40-54); Hemoglobin 13.5 g/dL (13.0-16.5); Mean Corp Hgb Conc 31.9 g/dL (32-36); Mean Corpuscular Hgb 32.6 pg (27.0-32.0); Mean Corpuscular Volume 102.2 fL (80-94); Mean Platelet Vol. 11.6 fl (6.2-12.0); Platelet Count 149 K/mm3 (150-450); RBC Distribution Width CV 15.6 % (11.6-14.6); RBC Distribution Width SD 58.9 fl (35.1-43.9); Red Blood Count 4.14 M/mm3 (4.6-6.2); White Blood Count 9.7 K/mm3 (4.4-11.0)
[2021-06-18 22:13] LABS: Anion Gap 3 (5-15); BUN 18 mg/dL (7-18); Calcium,Total 8.9 mg/dL (8.5-10.1); Chloride 106 mmol/L (98-107); Creatinine, Serum 1.63 mg/dL (0.70-1.30); EST Glomerular Filtration Rate 45 mL/min (>60); Est Glom Filt Rate - Afr Amer 54 mL/min (>60); Glucose 102 mg/dL (74-106); Potassium 3.8 mmol/L (3.5-5.1); Sodium Level 140 mmol/L (136-145)
[2021-06-18 22:23] VITALS: BP 165/73; PULSE 51; RESP 15; O2SAT 94
--- NOTE | 2021-06-18 23:59 | EDS_ITS ---
HPI History of Present Illness Chief Complaint: Dizziness Detail of Chief Complaint: Dizziness which is positional and swelling/raw sensation right side of mout Informant: patient and spouse/S.O. Onset/Context/Timing Onset: Hours (The oral sensation started hours prior to presentation. 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 He also reports vertigo that is positional for the past several days. The vertigo was worse today. states he had trouble walking when he got out of the car to be seen in the emergency department. He denies headache, visual disturbance and specifically no diplopia. He denies trouble with speech or swallowing. He denies paresthesia, anesthesia or motor weeks. He denies clumsiness or dropping things. He denies cardiac or respiratory symptoms. He does report nausea without vomiting or diarrhea. He denies urologic symptoms. He denies any other symptoms. 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) Anxiety Arthritis Back pain Bradycardia Cancer Cardiology follow-up encounter Cephalgia Chest pain Chronic abdominal pain Chronic cough CKD (chronic kidney disease) COPD (chronic obstructive pulmonary disease) Depression Depressive disorder Dizziness Dyspnea Easy bruising Essential hypertension Essential hypertension Gastric reflux GERD (gastroesophageal reflux disease) Hiatal hernia High cholesterol History of hiatal hernia History of pain when walking History of stress test History of ulceration Hx of echocardiogram Injury of head and neck Ischemic cardiomyopathy Left ventricular apical thrombus Loss of hearing Myocardial infarct, old Overweight (BMI 25.0-29.9) Palpitations Pulmonary fibrosis Shortness of breath on exertion Smoker Stage 2 moderate COPD by GOLD classification Symptomatic bradycardia Syncope Testicular cancer Tobacco abuse Wears dentures Wears glasses Home Medications fluoxetine 20 mg capsule 40 mg PO DAILY cap 04/23/19 [History Last Taken 07/04/19] gabapentin 400 mg capsule 400 mg PO TID cap 04/23/19 [History Last Taken 04/13 05:30] nitroglycerin 0.4 mg sublingual tablet 0.4 mg SUBLINGUAL Q5-15M PRN 04/23/19 [History Last Taken 04/25/19] atorvastatin 10 mg PO DAILY 04/27/19 [History Last Taken 07/04/19] mirtazapine 15 mg tablet 15 mg PO QHS tab 12/03/19 [History Last Taken Unknown] furosemide 40 mg tablet 40 mg PO BID #180 tab 02/13/20 [Rx Last Taken Unknown] albuterol sulfate 0.63 mg/3 mL solution for nebulization 0.63 mg INHALATION TID PRN ml 02/19/20 [History Last Taken Unknown] amlodipine 5 mg tablet 5 mg PO DAILY 07/09/20 [History Last Taken 04/28/21 05:30] carvedilol 6.25 mg tablet 6.25 mg PO BID #180 tab 01/12/21 [Rx Last Taken 04/28/21 05:30] hydralazine 25 mg tablet 25 mg PO DAILY #90 tab 02/23/21 [Rx Last Taken 04/28/21 05:30] isosorbide mononitrate 30 mg tablet,extended release 24 hr 30 mg PO DAILY #90 tab 02/23/21 [Rx Last Taken 04/28/21 05:30] pantoprazole [Protonix] 40 mg PO DAILY PRN 04/23/21 [History Last Taken 04/28/21 05:30] potassium chloride 40 meq PO DAILY 04/23/21 [History Last Taken Unknown] Allergy/AdvReac Type Severity Reaction Status Date / Time LASHONDA Inhibitors Allergy Severe Angioedema Verified 06/18/21 20:52 lisinopril Allergy Severe Angioedema Verified 06/18/21 20:52 Family History Father Cancer bone AAA (abdominal aortic aneurysm) Grandfather AAA (abdominal aortic aneurysm) Uncle AAA (abdominal aortic aneurysm) Surgical History History of AAA (abdominal aortic aneurysm) repair History of arthroscopic knee surgery History of cardiac catheterization History of corneal transplant History of foot surgery History of implantable cardiac defibrillator (ICD) History of knee surgery History of left heart catheterization (02/08/20) History of orchiectomy History of surgery on left wrist History of tonsillectomy Implantable cardioverter-defibrillator (ICD) in situ (08/21/20) Trigeminal neuralgia Social History Smoking Status: Current every day smoker tobacco type: cigars per week: 14 Tobacco: How many years used: 50 alcohol intake: never substance use type: does not use caffeine: Yes Type: coffee Number of servings: 5 ROS ROS ED Constitutional Constitutional ED: Denies chills, fever(s), subjective, sweats or weight loss Eyes Eyes: Denies blurry vision, change in vision or diplopia ENT ENT ED: Reports other Details: Swelling inside of mouth and neck without complaint of dysphonia or dysphagia ; Denies ear pain, rhinorrhea or sore throat Cardiovascular Cardiovascular: Denies chest pain or palpitations Respiratory/Chest Respiratory/Chest: Denies cough, dyspnea or dyspnea on exertion Gastrointestinal Gastrointestinal: Reports nausea; Denies abdominal pain, diarrhea or vomiting Genitourinary Genitourinary ED: Denies dysuria, hematuria or urinary frequency Musculoskeletal Musculoskeletal: Denies arthralgias, myalgias or neck pain Integumentary Denies rash Neurologic Neurologic: Denies headache(s), paresthesias or weakness Endocrine Endocrinology: Denies polydipsia, polyphagia or polyuria Allergic/Immunologic Allergic/Immunologic ED: Denies urticaria EXAM Physical Exam Const Vital Signs: 06/18/21 20:48 06/18/21 21:08 06/18/21 21:10 Temperature 97.3 F L Temperature Source Temporal Pulse Rate 60 56 L Respiratory Rate 18 18 Respiratory Effort Normal Non-Labored Respiratory Pattern Normal Blood Pressure 186/100 H 180/87 H Blood Pressure Mean 128 118 Pulse Ox 95 96 Oxygen Delivery Method Room Air Room Air 06/18/21 22:23 Temperature Temperature Source Pulse Rate 51 L Respiratory Rate 15 Respiratory Effort Respiratory Pattern Blood Pressure 165/73 H Blood Pressure Mean 103 Pulse Ox 94 Oxygen Delivery Method Room Air Positive well nourished and well developed; Negative for obese, cachectic or contractures General Appearance ED: well developed; Negative for cachectic or contractures Nutritional Appearance: Negative for cachectic or obese HEENT Reports TM's clear and moist mucous membranes HEENT Narrative: There is evidence of angioedema buccal side of the mouth on the right. There may be slight swelling near the angle of the mandible. Tympanic Membrane ED: Yes TM's clear Eyes PERRL and EOMs intact bilaterally General Eye ED: Negative for pale conjunctiva or scleral icterus Neck No no lymphadenopathy, No supple and No no JVD Neck Narrative: Trachea is midline. There is no inspiratory expiratory stridor. There is no dysphonia. Chest Wall inspection of chest normal Resp normal respiratory effort and clear to auscultation bilaterally Effort and Inspection: pain with movement Cardio regular rate, regular rhythm, S1 normal heart sound, S2 normal heart sound and no murmurs GI normal to inspection, nondistended, normoactive bowel sounds, non-tender and non-distended Auscultation: normoactive bowel sounds Palpation: soft Back/Spine no CVA tenderness Cervical Spine: Negative for cervical spine tenderness Thoracic Spine / Upper Back: Negative for thoracic spinal tenderness or paraspinal muscle tenderness Extremity Negative for normal to inspection Neuro oriented x3, CN's II-XII intact bilaterally and no sensory deficits noted Sensorium / Orientation: alert Motor Exam: strength 5/5 throughout Psych mental status grossly normal Skin no rashes or lesions noted and no wounds MDM MDM MDM Narrative Medical decision making narrative: The eye askew test was negative. The hint test was negative. Lashawn-Hallpike maneuver reproduce patient's symptoms. Elvie maneuver was performed. Patient states symptoms came on and resolved after 1 to 2 minutes. He was reassessed 5 minutes after the Elvie maneuver and still is asymptomatic. Blood work indicates increasing creatinine. Patient will receive a 500 cc bolus. CBC is unremarkable. 1. Patient vertigo has resolved and he was reassessed at 0100. 2. Patient feels better after IV fluids 3. Patient's angioedema has improved. Etiology is unknown. Lab Data Attestation: I reviewed the patient's lab results. Lab results narrative: CBC is unremarkable. Creatinine is elevated 1.63. There is been a slightly increase in his creatinine. The swelling on the side of his mouth has improved. Plan is discharged to home. Labs: Laboratory Results - last 24 hr 06/18/21 06/18/21 21:14 21:14 WBC 9.7 RBC 4.14 L Hgb 13.5 Hct 42.3 MCV 102.2 H MCH 32.6 H MCHC 31.9 L RDW Std Deviation 58.9 H RDW Coeff of Karen 15.6 H Plt Count 149 L MPV 11.6 Sodium 140 Potassium 3.8 Chloride 106 Carbon Dioxide 31.0 Anion Gap 3 L BUN 18 Creatinine 1.63 H Estim Creat Clear Calc 38.60 Est GFR (MDRD) Af Amer 54 L Est GFR (MDRD) Non-Af 45 L BUN/Creatinine Ratio 11.0 Glucose 102 Calcium 8.9 Discharge Plan Triage Chief Complaint: Dizziness ED Provider: Melecio Castellano Dx/Rx/DC Orders Clinical Impression: Angioedema, Benign paroxysmal positional vertigo, Chronic renal insufficiency, stage II (mild) Instructions: CKD Dc, ED Angioedema, ED BPV Vertigo Prescriptions: No Action nitroglycerin 0.4 mg tablet, sublingual 0.4 mg SUBLINGUAL Q5-15M PRN (Reason: CHEST PAIN) RF: 0 mirtazapine 15 mg tablet 15 mg PO QHS RF: 0 albuterol sulfate 0.63 mg/3 mL solution for nebulization 0.63 mg INHALATION TID PRN (Reason: SOB) RF: 0 amlodipine 5 mg tablet 5 mg PO DAILY RF: 0 fluoxetine 20 mg capsule 40 mg PO DAILY RF: 0 gabapentin 400 mg capsule 400 mg PO TID RF: 0 atorvastatin 10 MG tablet 10 mg PO DAILY RF: 0 potassium chloride 20 mEq tablet,ER particles/crystals 40 meq PO DAILY RF: 0 pantoprazole [Protonix] [address] For Susp In Packet 40 mg PO DAILY PRN (Reason: Indigestion) RF: 0 furosemide 40 mg tablet 40 mg PO BID Qty: 180 RF: 3 carvedilol 6.25 mg tablet 6.25 mg PO BID Qty: 180 RF: 3 hydralazine 25 mg tablet 25 mg PO DAILY Qty: 90 RF: 3 isosorbide mononitrate 30 mg tablet extended release 24 hr 30 mg PO DAILY Qty: 90 RF: 3 Primary Care Provider: Archie Flores Referrals: Archie Flores MD [Primary Care Provider] - 1-2 Weeks (Creatinine has been increased over the past several months. This should be rechecked in 1 to 2 weeks) Disposition Disposition: Home, Self Care
[2021-06-19 01:05] VITALS: BP 160/75; PULSE 52; RESP 19; O2SAT 95
== END 2021-06-19 01:11 | disposition home or self-care (01) ==
PROVIDERS: Emergency Provider Emergency Medicine; PCP Family Medicine
DX: H81.10 Benign paroxysmal vertigo, unspecified ear (principal); T78.3XXA Angioneurotic edema, initial encounter; I12.9 Hypertensive chronic kidney disease with stage 1 through stage 4 chronic kidney disease, or unspecified chronic kidney disease; N18.2 Chronic kidney disease, stage 2 (mild); E78.00 Pure hypercholesterolemia, unspecified; F17.290 Nicotine dependence, other tobacco product, uncomplicated; F32.9 Major depressive disorder, single episode, unspecified; F41.9 Anxiety disorder, unspecified; I25.2 Old myocardial infarction; I25.5 Ischemic cardiomyopathy; G89.29 Other chronic pain; K21.9 Gastro-esophageal reflux disease without esophagitis; K44.9 Diaphragmatic hernia without obstruction or gangrene; J84.10 Pulmonary fibrosis, unspecified; J44.9 Chronic obstructive pulmonary disease, unspecified
CPT/HCPCS: 80048; 85027; 96360; 99284; J7040

== ENCOUNTER 2021-12-14 07:48 | Outpatient (CLI) | payer MEDICARE, SELFPAY ==
--- NOTE | 2021-12-14 08:07 | CT_ITS ---
STUDY: LOW DOSE CT LUNG CANCER SCREENING REASON FOR EXAM: Male, 71 years old. Smoker and gt; 40 pack years RADIATION DOSAGE (If Supplied By Facility): CTDIvol = ( 2.39 ) mGy, DLP = ( 79.52 ) mGycm TECHNIQUE: No contrast was administered. Low dose technique was utilized (average mAS-38 and kVp 120). 1.25 mm axial source images with a slice interval of 1.25-mm were reconstructed in lung windows. 2.5 mm axial source images with a slice interval of 2.5-mm were reconstructed in lung windows. 5.0 mm axial source images with a slice interval of 5.0-mm were reconstructed in soft tissue windows. Nodule measured using lung windows on PACS and/or independent workstation with automated measurement of minimum and maximum diameter. Nodule measurement reported as average diameter rounded to the nearest whole number. Growth is defined as an increase ins size of greater than 1.5 mm. COMPARISON: Comparison is made with prior study dated 12/13/2020. NODULES: No suspicious nodules are seen. Emphysema: Hyperinflation. Stable scarring at the lung bases with subpleural blebs and bronchiectasis. Stable scarring in the anterior aspect of both upper lobes with a subpleural blebs and emphysematous changes. Endobronchial lesion: None Aorta: Atherosclerotic plaque formation of the aortic arch. Coronary arteries: Coronary artery calcification. Heart: A dual-chamber pacemaker is seen. Pulmonary artery: Unremarkable Mediastinal nodes: Small mediastinal lymph nodes. Other chest and abdominal findings: CT/Low Dose CT Lung Screening IMPRESSION: Lung-RADS category 2 - Continue annual screening with LDCT in 12 months. IMPORTANT NOTES FOR USE: ACR Lung-RADS Version 1.1 Assessment Categories Release Date: 2018 Category: Coded 0-4 bases on nodule(s) with highest degree of suspicion. Negative screen is defined as categories 1 and 2; a positive screen is defined as categories 3 and 4. Category 3 and 4A nodules that are unchanged on interval CT should be coded as category 2, and individuals returned to screening in 12 months. Category 4X: Category 3 or 4 nodules with additional imaging findings that increase the suspicion of lung cancer, such as spiculation, GGN that doubles in size in 1 year, enlarged lymph notes, etc. Category Modifiers: S (significant finding unrelated to lung cancer) Electronically Signed: James Pérez MD at 8:47 EST ,
== END 2021-12-14 23:59 | disposition home or self-care (01) ==
LOC: CT 07:49
PROVIDERS: PCP Family Medicine; Referring Provider Nurse Practitioner Acute Care; Visit Provider Nurse Practitioner Acute Care
DX: Z12.2 Encounter for screening for malignant neoplasm of respiratory organs (principal); F17.210 Nicotine dependence, cigarettes, uncomplicated
CPT/HCPCS: 71271

== ENCOUNTER 2022-09-28 14:07 | Inpatient (IN) | payer MEDICARE, SELFPAY ==
[2022-09-28] VITALS (14 sets, daily range): BP systolic 124–159; BP diastolic 65–79; PULSE 50–70; RESP 15–18; TEMP 36.5–37; O2SAT 85–99; BMI 26.1; BMI 25.4
[2022-09-28] MEDS: Ipratropium/Albuterol Sulfate 3 ML AMPUL.NEB INHALATION (14:38)
[2022-09-28] MEDS: predniSONE 20 MG Tablet 60 MG PO (14:38)
--- NOTE | 2022-09-28 14:38 | EDS_ITS ---
HPI History of Present Illness Chief Complaint: Cough Informant: patient and spouse/S.O. Narrative Narrative: Patient is a 9-year-old male with history of stage III COPD, pulmonary fibrosis, hypertension, AAA, continued tobacco abuse and chronic heart failure with reduced ejection fraction status post ICD placement presenting with cough. Patient is concerned he has pneumonia. He states he is been having worsening cough especially at night for the past week. His had a cold around and her daughter had the flu about 2 weeks before . Patient has had nasal congestion, dry throat and ear pressure as well. Denies any fever. States his phlegm has been green and brown. He he started trying to use his home nebulizer at home but did not feel it was helping. He is only used it once today. Has had constipation for the past week but denies abdominal pain. Denies any nausea or vomiting. Denies any urinary symptoms. Does not wear home oxygen and has refused to get evaluated for obstructive sleep apnea. Has been taking Mucinex. No other complaints at this time. Denies any swelling of his legs. Denies any chest pain except in the front of his chest when he has particularly bad coughing fit. 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) Anxiety Arthritis Back pain Benign paroxysmal positional vertigo Bradycardia Cancer Cardiology follow-up encounter Cephalgia Chest pain Chronic abdominal pain Chronic cough Chronic HFrEF (heart failure with reduced ejection fraction) Chronic renal insufficiency, stage II (mild) CKD (chronic kidney disease) COPD (chronic obstructive pulmonary disease) Depression Depressive disorder Dizziness Easy bruising Essential hypertension Essential hypertension Gastric reflux GERD (gastroesophageal reflux disease) Hiatal hernia High cholesterol History of hiatal hernia History of pain when walking History of stress test History of ulceration Hx of echocardiogram Injury of head and neck Left ventricular apical thrombus Loss of hearing Myocardial infarct, old Non-ischemic cardiomyopathy Overweight (BMI 25.0-29.9) Palpitations Pulmonary fibrosis Shortness of breath on exertion Smoker Stage 2 moderate COPD by GOLD classification Symptomatic bradycardia Syncope Testicular cancer Tobacco abuse Wears dentures Wears glasses Home Medications fluoxetine 20 mg capsule 20 mg PO BID anxiety 04/23/19 [History Last Taken 09/28/22] gabapentin 400 mg capsule 400 mg PO TID pain 04/23/19 [History Last Taken 09/28/22] nitroglycerin 0.4 mg sublingual tablet 0.4 mg sublingual Q5-15M PRN CHEST PAIN 04/23/19 [History Last Taken 04/25/19] atorvastatin 10 mg tablet 10 mg PO DAILY cholesterol 04/27/19 [History Last Taken 09/28/22] mirtazapine 15 mg tablet 15 mg PO QHS 12/03/19 [History Last Taken 09/27/22] albuterol sulfate 0.63 mg/3 mL solution for nebulization 0.63 mg inhalation TID PRN SOB 02/19/20 [History Last Taken 09/28/22] amlodipine 5 mg tablet 5 mg PO DAILY 07/09/20 [History Last Taken 09/28/22] isosorbide mononitrate 30 mg tablet,extended release 24 hr 30 mg PO DAILY #90 tabs 12/22/21 [Rx Last Taken 09/28/22] potassium chloride 20 mEq tablet,extended release(part/cryst) 40 meq PO DAILY #180 tabs 01/11/22 [Rx Last Taken 09/28/22] furosemide 40 mg tablet 40 mg PO .COMPLEX #180 tabs 07/19/22 [Rx Last Taken 09/28/22] carvedilol 25 mg tablet 25 mg PO BID HEART 09/28/22 [History Last Taken 09/28/22] hydralazine 25 mg tablet 25 mg PO TID 09/28/22 [History Last Taken 09/28/22] Allergy/AdvReac Type Severity Reaction Status Date / Time LASHONDA Inhibitors Allergy Severe Angioedema Verified 09/28/22 14:08 lisinopril Allergy Severe Angioedema Verified 09/28/22 14:08 Family History Father Cancer bone AAA (abdominal aortic aneurysm) Grandfather AAA (abdominal aortic aneurysm) Uncle AAA (abdominal aortic aneurysm) Surgical History H/O umbilical hernia repair History of AAA (abdominal aortic aneurysm) repair History of arthroscopic knee surgery History of corneal transplant History of foot surgery History of implantable cardiac defibrillator (ICD) History of knee surgery History of left heart catheterization (02/08/20) History of orchiectomy History of surgery on left wrist History of tonsillectomy Implantable cardioverter-defibrillator (ICD) in situ (08/21/20) Trigeminal neuralgia Social History Smoking Status: Current every day smoker tobacco type: cigarettes and cigars per week: 14 Tobacco: How many years used: 50 alcohol intake: never substance use type: does not use caffeine: Yes Type: coffee Number of servings: 5 ROS ROS ED Constitutional Constitutional ED: Denies chills, fever(s) or sweats Eyes Eyes: Denies change in vision ENT ENT ED: Reports ear pain, sore throat and other Details: nasal congestion Cardiovascular Cardiovascular: Denies chest pain or palpitations Respiratory/Chest Respiratory/Chest: Reports cough, dyspnea and sputum Gastrointestinal Gastrointestinal: Reports constipation; Denies nausea or vomiting Genitourinary Genitourinary ED: Denies dysuria or hematuria Musculoskeletal Musculoskeletal: Denies arthralgias or myalgias Integumentary Denies rash Neurologic Neurologic: Denies headache(s) or weakness Psychiatric Psychiatric: Denies anxiety Hematologic/Lymphatic Hematologic/Lymphatic: Denies easy bleeding or easy bruising EXAM Physical Exam Const Vital Signs: 09/28/22 14:08 09/28/22 14:12 09/28/22 14:25 Temperature 98.4 F 98.4 F Temperature Source Temporal Temporal Pulse Rate 70 70 Respiratory Rate 16 16 Respiratory Effort Short of Breath Respiratory Depth Normal Respiratory Pattern Normal Blood Pressure 144/79 H 144/79 H Blood Pressure Mean 100 100 Pulse Ox 97 97 Oxygen Delivery Method Room Air Room Air Oxygen Flow Rate (L/min) 09/28/22 14:38 09/28/22 15:51 09/28/22 15:51 Temperature Temperature Source Pulse Rate 51 L 50 L Respiratory Rate 18 15 Respiratory Effort Respiratory Depth Respiratory Pattern Normal Blood Pressure Blood Pressure Mean Pulse Ox 85 94 Oxygen Delivery Method Room Air Nasal Cannula Oxygen Flow Rate (L/min) 2 09/28/22 15:12 09/28/22 16:00 09/28/22 17:00 Temperature 98.6 F 98.5 F 98.4 F Temperature Source Temporal Temporal Temporal Pulse Rate 52 L 50 L 55 L Respiratory Rate 16 16 18 Respiratory Effort Respiratory Depth Respiratory Pattern Blood Pressure 139/78 H 156/75 H 154/77 H Blood Pressure Mean 98 102 102 Pulse Ox 91 95 94 Oxygen Delivery Method Room Air Nasal Cannula Nasal Cannula Oxygen Flow Rate (L/min) 2 2 09/28/22 17:00 Temperature Temperature Source Pulse Rate 55 L Respiratory Rate Respiratory Effort Respiratory Depth Respiratory Pattern Blood Pressure Blood Pressure Mean Pulse Ox Oxygen Delivery Method Oxygen Flow Rate (L/min) Positive well nourished and well developed General Appearance ED: well developed and NAD HEENT Reports TM's clear and moist mucous membranes atraumatic Tympanic Membrane ED: Yes TM's clear Eyes PERRL and EOMs intact bilaterally Neck supple and no JVD Resp normal respiratory effort Resp Narrative: Coarse breath sounds throughout Auscultation: wheezes scattered wheezes Cardio regular rate, regular rhythm and no murmurs Cardio Narrative: 2+ DP pulses GI non-tender and non-distended Back/Spine normal to inspection Extremity normal to inspection General Extremety ED: Negative for edema or tenderness General Extremity: Negative for edema Neuro oriented x3 Speech: speech normal Motor Exam: Negative for general weakness Psych mental status grossly normal Skin no wounds and skin turgor normal MDM MDM MDM Narrative Medical decision making narrative: Patient is evaluated for concern for pneumonia. Patient is vital signs are normal and he is not hypoxic. However he ambulates in the ER and dropped on 87% on room air. He does not wear home oxygen. Chest x-ray does show multifocal pneumonia interpreted by myself as well as radiology. Patient started on broad- spectrum antibiotics to cover for community-acquired pneumonia (Rocephin and azithromycin). Chest x-ray also showed have a small pleural effusion for questionable component of fluid overload. Clinically patient does not appear fluid overloaded has no JVD or peripheral edema. BNP is added on. Patient's elevated creatinine is at his baseline. Patient is admitted for further respiratory treatment and monitoring. He is also given prednisone in the ER. Patient and agreeable to splenic care. Lab Data Labs: Laboratory Results - last 24 hr 09/28/22 09/28/22 09/28/22 16:00 16:00 16:00 WBC 6.3 RBC 3.51 L Hgb 11.6 L Hct 34.3 L MCV 97.7 H MCH 33.0 H MCHC 33.8 RDW Std Deviation 55.2 H RDW Coeff of Karen 15.3 H Plt Count 184 MPV 10.7 Immature Gran % (Auto) 0.300 Neut % (Auto) 61.0 Lymph % (Auto) 22.9 [place] % (Auto) 8.8 Eos % (Auto) 6.5 H Baso % (Auto) 0.5 Absolute Neuts (auto) 3.8 Absolute Lymphs (auto) 1.44 Nucleated RBC % 0 Sodium 136 Potassium 3.6 Chloride 101 Carbon Dioxide 32.0 Anion Gap 3 L BUN 16 Creatinine 1.66 H Estim Creat Clear Calc 37.37 Est GFR (MDRD) Af Amer 53 L Est GFR (MDRD) Non-Af 44 L BUN/Creatinine Ratio 9.6 L Glucose 98 Calcium 8.9 Total Bilirubin Direct Bilirubin AST ALT Alkaline Phosphatase B-Natriuretic Peptide 708.8 H Total Protein Albumin Globulin 09/28/22 16:00 WBC RBC Hgb Hct MCV MCH MCHC RDW Std Deviation RDW Coeff of Karen Plt Count MPV Immature Gran % (Auto) Neut % (Auto) Lymph % (Auto) [place] % (Auto) Eos % (Auto) Baso % (Auto) Absolute Neuts (auto) Absolute Lymphs (auto) Nucleated RBC % Sodium Potassium Chloride Carbon Dioxide Anion Gap BUN Creatinine Estim Creat Clear Calc Est GFR (MDRD) Af Amer Est GFR (MDRD) Non-Af BUN/Creatinine Ratio Glucose Calcium Total Bilirubin 0.50 Direct Bilirubin 0.16 AST 20 ALT 33 Alkaline Phosphatase 119 H B-Natriuretic Peptide Total Protein 6.9 Albumin 3.1 L Globulin 3.8 Radiography Diagnostic Testing: Clinical Impression(s) from Imaging Studies Chest X-Ray 09/28/22 15:00 IMPRESSION: Findings suggestive of bibasilar pulmonary infiltrates worse on the left side superimposed on mild CHF. Blunting of the left costophrenic angle. Electronically Signed: James Pérez MD at 15:41 EST , Discharge Plan Dx/Rx/DC Orders Clinical Impression: Pneumonia, Hypoxia Disposition Disposition: Acute Care Hospital [facility] Discharge Date/Time: 09/28/22 18:10
--- NOTE | 2022-09-28 15:00 | RAD_ITS ---
STUDY: X-RAY CHEST REASON FOR EXAM: Male, 72 years old. Cough TECHNIQUE: PA and lateral views of the chest. COMPARISON: Comparison is made with prior study dated 08/21/2020. FINDINGS: EKG electrodes are seen. There is evidence of a mild degree of vascular congestion. Bibasilar pulmonary infiltrates worse at the left lung base. Blunting of the left ankle. There is mild cardiac enlargement. A left-sided single chamber pacemaker is seen. Normal mediastinum and leanne. Normal visualized pulmonary arteries. There is atherosclerotic calcification of the aortic arch with tortuosity. There is demineralization of the osseous structures. Normal visualized ribs, clavicles, and shoulders. There is no demonstrated abnormality of the visualized soft tissue structures of the upper abdomen. RAD/Chest PA and Lateral IMPRESSION: Findings suggestive of bibasilar pulmonary infiltrates worse on the left side superimposed on mild CHF. Blunting of the left costophrenic angle. Electronically Signed: James Pérez MD at 15:41 EST ,
[2022-09-28 16:20] LABS: Absolute Lymphocyte Count 1.44 X10^3/uL (0.83-4.51); Absolute Neutrophil Count 3.8 X10^3/uL (2.0-7.7); Basophil# 0.03 X10^3/uL; Basophil% 0.5 % (0-1); Eosinophil# 0.41 X10^3/uL; Eosinophils% 6.5 % (0-5); Hematocrit 34.3 % (40-54); Hemoglobin 11.6 g/dL (13.0-16.5); Lymphocyte # 1.44 X10^3/ul (0.83-4.51); Lymphocyte % 22.9 % (19-41); Mean Corp Hgb Conc 33.8 g/dL (32-36); Mean Corpuscular Volume 97.7 fL (80-94); Mean Platelet Vol. 10.7 fl (6.2-12.0); Monocyte# 0.55 X10^3/uL; Monocyte% 8.8 % (0-10); NRBC Flagged by Analyzer 0 % (0-5); Neutrophil # 3.83 X10^3/uL (2.7-7.7); Platelet Count 184 K/mm3 (150-450); RBC Distribution Width CV 15.3 % (11.6-14.6); RBC Distribution Width SD 55.2 fl (35.1-43.9); Red Blood Count 3.51 M/mm3 (4.6-6.2); White Blood Count 6.3 K/mm3 (4.4-11.0)
[2022-09-28 16:30] LABS: Anion Gap 3 (5-15); BUN 16 mg/dL (7-18); BUN/Creat Ratio 9.6 RATIO (10-20); Calcium,Total 8.9 mg/dL (8.5-10.1); Chloride 101 mmol/L (98-107); Creatinine, Serum 1.66 mg/dL (0.70-1.30); EST Glomerular Filtration Rate 44 mL/min (>60); Est Glom Filt Rate - Afr Amer 53 mL/min (>60); Estimated Creatinine Clearance 37.37 ml/min; Glucose 98 mg/dL (74-106); Potassium 3.6 mmol/L (3.5-5.1); Sodium Level 136 mmol/L (136-145)
--- NOTE | 2022-09-28 17:14 | PCM.HP.STD ---
[facility] - General General Date of Admission: 09/28/22 Date of Service: 09/28/22 Chief Complaint: Feeling unwell, cough, shortness of breath ongoing for 1 week HPI Narrative INNA AHMADI, is a 72 M who presents with the above. Patient is a 72-year-old with past medical history COPD, chronic smoker, history of abdominal aortic aneurysm repair, chronic heart failure with reduced EF/nonischemic cardiomyopathy who comes in with complaints of shortness of breath and cough. This has been ongoing for about a week. His stated around Thanksgiving, she had a 3-day history of upper respiratory illness with sore throat. That seemed to have gone away. Patient subsequently developed fatigue, cough, not productive of any sputum. He denied any fever or chills. Patient's vitals in the ED showed blood pressure 144/79, heart rate 70, respiratory 16, temperature 98.4 F, oxygen sat at 97% on room air. Patient later on required 2 L of oxygen. WBC count is 6.2, hemoglobin 11.6, platelet count 184, BMP unremarkable except for creatinine 1.66 which is his baseline. BNPep is 708.8. Rapid COVID-19 antigen test as well as influenza screen was negative. Chest x-ray showed bibasilar pulmonary infiltrates worse on the left, superimposed on mild CHF. 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) Anxiety Arthritis Back pain Benign paroxysmal positional vertigo Bradycardia Cancer Cardiology follow-up encounter Cephalgia Chest pain Chronic abdominal pain Chronic cough Chronic HFrEF (heart failure with reduced ejection fraction) Chronic renal insufficiency, stage II (mild) CKD (chronic kidney disease) COPD (chronic obstructive pulmonary disease) Depression Depressive disorder Dizziness Easy bruising Essential hypertension Essential hypertension Gastric reflux GERD (gastroesophageal reflux disease) Hiatal hernia High cholesterol History of hiatal hernia History of pain when walking History of stress test History of ulceration Hx of echocardiogram Injury of head and neck Left ventricular apical thrombus Loss of hearing Myocardial infarct, old Non-ischemic cardiomyopathy Overweight (BMI 25.0-29.9) Palpitations Pulmonary fibrosis Shortness of breath on exertion Smoker Stage 2 moderate COPD by GOLD classification Symptomatic bradycardia Syncope Testicular cancer Tobacco abuse Wears dentures Wears glasses Home Medications fluoxetine 20 mg capsule 20 mg PO BID anxiety 04/23/19 [History Last Taken 09/28/22] gabapentin 400 mg capsule 400 mg PO TID pain 04/23/19 [History Last Taken 09/28/22] nitroglycerin 0.4 mg sublingual tablet 0.4 mg sublingual Q5-15M PRN CHEST PAIN 04/23/19 [History Last Taken 04/25/19] atorvastatin 10 mg tablet 10 mg PO DAILY cholesterol 04/27/19 [History Last Taken 09/28/22] mirtazapine 15 mg tablet 15 mg PO QHS 12/03/19 [History Last Taken 09/27/22] albuterol sulfate 0.63 mg/3 mL solution for nebulization 0.63 mg inhalation TID PRN SOB 02/19/20 [History Last Taken 09/28/22] amlodipine 5 mg tablet 5 mg PO DAILY 07/09/20 [History Last Taken 09/28/22] isosorbide mononitrate 30 mg tablet,extended release 24 hr 30 mg PO DAILY #90 tabs 12/22/21 [Rx Last Taken 09/28/22] potassium chloride 20 mEq tablet,extended release(part/cryst) 40 meq PO DAILY #180 tabs 01/11/22 [Rx Last Taken 09/28/22] furosemide 40 mg tablet 40 mg PO .COMPLEX #180 tabs 07/19/22 [Rx Last Taken 09/28/22] carvedilol 25 mg tablet 25 mg PO BID HEART 09/28/22 [History Last Taken 09/28/22] hydralazine 25 mg tablet 25 mg PO TID 09/28/22 [History Last Taken 09/28/22] Allergy/AdvReac Type Severity Reaction Status Date / Time LASHONDA Inhibitors Allergy Severe Angioedema Verified 09/28/22 14:08 lisinopril Allergy Severe Angioedema Verified 09/28/22 14:08 Family History Father Cancer bone AAA (abdominal aortic aneurysm) Grandfather AAA (abdominal aortic aneurysm) Uncle AAA (abdominal aortic aneurysm) Surgical History H/O umbilical hernia repair History of AAA (abdominal aortic aneurysm) repair History of arthroscopic knee surgery History of corneal transplant History of foot surgery History of implantable cardiac defibrillator (ICD) History of knee surgery History of left heart catheterization (02/08/20) History of orchiectomy History of surgery on left wrist History of tonsillectomy Implantable cardioverter-defibrillator (ICD) in situ (08/21/20) Trigeminal neuralgia Social History Smoking Status: Current every day smoker tobacco type: cigarettes and cigars per week: 14 Tobacco: How many years used: 50 alcohol intake: never substance use type: does not use caffeine: Yes Type: coffee Number of servings: 5 ROS ROS Narrative Constitutional: Reports: Malaise, Weakness, Fatigue. Denies: Anorexia, Chills, Fever, Night Sweats, Weight Change Eyes: Denies: Blurred vision, Cataracts, Conjunctivae Inflammation, Pain, Redness, Vision Change HEENT: Denies: Difficulty Hearing, Difficulty Swallowing, Head Aches, Hearing Changes, Sinus Congestion, Sinus Drainage Cardiovascular: Denies: Chest Pain, Orthopnea, Palpitations Respiratory:Admits to Cough, Shortness of breath at rest, Denies: Sputum production Gastrointestinal: Denies: Abdominal Pain, Nausea, Vomiting Genitourinary: Denies: Dysuria Musculoskeletal: Denies: Joint Pain, Joint stiffness, Joint swelling, Joint Tenderness Skin: Denies: Rash, Wounds Neurological: Denies: Numbness, Tingling, Focal weakness Vital Signs Vital Signs Vital Signs: 09/28/22 14:08 09/28/22 14:12 09/28/22 14:25 Temperature 98.4 F 98.4 F Temperature Source Temporal Temporal Pulse Rate 70 70 Respiratory Rate 16 16 Respiratory Effort Short of Breath Respiratory Depth Normal Respiratory Pattern Normal Blood Pressure 144/79 H 144/79 H Blood Pressure Mean 100 100 Pulse Ox 97 97 Oxygen Delivery Method Room Air Room Air Oxygen Flow Rate (L/min) 09/28/22 14:38 09/28/22 15:51 09/28/22 15:51 Temperature Temperature Source Pulse Rate 51 L 50 L Respiratory Rate 18 15 Respiratory Effort Respiratory Depth Respiratory Pattern Normal Blood Pressure Blood Pressure Mean Pulse Ox 85 94 Oxygen Delivery Method Room Air Nasal Cannula Oxygen Flow Rate (L/min) 2 09/28/22 15:12 09/28/22 16:00 09/28/22 17:00 Temperature 98.6 F 98.5 F 98.4 F Temperature Source Temporal Temporal Temporal Pulse Rate 52 L 50 L 55 L Respiratory Rate 16 16 18 Respiratory Effort Respiratory Depth Respiratory Pattern Blood Pressure 139/78 H 156/75 H 154/77 H Blood Pressure Mean 98 102 102 Pulse Ox 91 95 94 Oxygen Delivery Method Room Air Nasal Cannula Nasal Cannula Oxygen Flow Rate (L/min) 2 2 09/28/22 17:00 09/28/22 17:11 Temperature 98.4 F Temperature Source Temporal Pulse Rate 55 L 53 L Respiratory Rate 17 Respiratory Effort Respiratory Depth Respiratory Pattern Blood Pressure 154/77 H Blood Pressure Mean 102 Pulse Ox 95 Oxygen Delivery Method Nasal Cannula Oxygen Flow Rate (L/min) 2 Weight Weight: 73.482 kg Body Mass Index (BMI) 26.1 Physical Exam Narrative Physical exam: General: Alert, Oriented x3, Cooperative, looks frail, on 2 L of oxygen HEENT: Atraumatic Oral: Moist Mucosa Neck: Supple Lungs: Diminished to auscultation, scattered wheezes Cardiovascular: HS I+II, regular, no murmurs Abdomen: Bowel Sounds Present, Soft, Non Tender Extremities: No edema Skin: No rashes, No breakdown Neurological: Grossly intact Psych/Mental Status: Appropriate Results Lab / Micro Data Result Diagrams: 09/28/22 16:00 09/28/22 16:00 Labs: Laboratory Results - last 24 hr 09/28/22 16:00: WBC 6.3, RBC 3.51 L, Hgb 11.6 L, Hct 34.3 L, MCV 97.7 H, MCH 33.0 H, MCHC 33.8, RDW Std Deviation 55.2 H, RDW Coeff of Karen 15.3 H, Plt Count 184, MPV 10.7, Immature Gran % (Auto) 0.300, Neut % (Auto) 61.0, Lymph % (Auto) 22.9, [place] % (Auto) 8.8, Eos % (Auto) 6.5 H, Baso % (Auto) 0.5, Absolute Neuts (auto) 3.8, Absolute Lymphs (auto) 1.44, Nucleated RBC % 0 09/28/22 16:00: Sodium 136, Potassium 3.6, Chloride 101, Carbon Dioxide 32.0, Anion Gap 3 L, BUN 16, Creatinine 1.66 H, Estim Creat Clear Calc 37.37, Est GFR (MDRD) Af Amer 53 L, Est GFR (MDRD) Non-Af 44 L, BUN/Creatinine Ratio 9.6 L, Glucose 98, Calcium 8.9 Micro: Microbiology 09/28/22 15:33 Nasal Secretion SARS-CoV-2 & FLU Antigen (Rapid) - Final Radiology Impression Chest X-Ray 09/28/22 15:00 IMPRESSION: Findings suggestive of bibasilar pulmonary infiltrates worse on the left side superimposed on mild CHF. Blunting of the left costophrenic angle. Electronically Signed: James Pérez MD at 15:41 EST , Assessment & Plan Assessment/Plan (1) Pneumonia: PLAN: Plan 1. Acute hypoxia secondary to pneumonia, Patient is currently on 2 L of oxygen, saturating 93% Chest x-ray showed bilateral pulmonary infiltrates Rapid COVID-19 antigen test as well as influenza screen is negative We will continue on IV ceftriaxone, azithromycin, breathing treatment Check urine Legionella and streptococcal antigen Follow-up on respiratory panel 2. Acute COPD exacerbation secondary to #1 Patient with evidence of scattered audible wheezes We will continue IV Solu-Medrol, breathing treatment Continue on IV antibiotics 3. Probable acute exacerbation of combined CHF, EF 35%, stage II diastolic dysfunction Patient presented with elevated BNPep of more than 700; clinically not fluid overloaded Probably elevated BNPep is from his chronic kidney disease We will give a dose of Lasix 40 mg IV x1 Patient will need to be reevaluated in the morning to see whether he needs more diuretic 4. CKD stage IIIa/renal artery stenosis, follows closely with outpatient nephrology Patient stated that he is reportedly due for renal artery stents Will need to follow-up closely in the outpatient Trend labs in a.m. 5. Nicotine dependence, advised to quit, continue replacement 6. Hypertension/hyperlipidemia, continue on amlodipine, Coreg, hydralazine, isosorbide and atorvastatin 7. Depression/cognitive impairment, on Remeron, Prozac 8. DVT PPx- Heparin SC Charges/Coding Visit Charges Inpatient E&M: 43169 Init Hosp L3
[2022-09-28] MEDS: Ceftriaxone 1 GM/50 ML BAG IV (17:22)
[2022-09-28 17:44] LABS: BNP,B-Type NATRIURETIC PEPTIDE 708.8 pg/mL (0-100)
[2022-09-28] MEDS: 0.9% Saline Lock 10 ML Syringe IV ×2 (20:24→21:14)
[2022-09-28] MEDS: Furosemide 40 MG/4 ML Vial IV (20:24)
[2022-09-28 20:35] LABS: AST(SGOT) 20 U/L (15-37); Alanine Aminotransfer ALT/SGPT 33 U/L (16-61); Albumin, Serum 3.1 g/dL (3.2-5.0); Alkaline Phosphatase 119 U/L (45-117); Bilirubin, Direct 0.16 mg/dL (0.00-0.30); Globulin 3.8 g/dL (2.2-4.2); Protein, Total 6.9 g/dL (6.4-8.2)
[2022-09-28] MEDS: Carvedilol 25 MG Tablet PO (21:14)
[2022-09-28] MEDS: Gabapentin 400 MG Capsule PO (21:14)
[2022-09-28] MEDS: Mirtazapine 15 MG Tablet PO (21:14)
[2022-09-28] MEDS: FLUoxetine 20 MG Capsule PO (21:14)
[2022-09-28] MEDS: Heparin Injection (Vial) 5,000 UNIT/ML VIAL 5000 UNIT SC (21:14)
[2022-09-28] MEDS: hydrALAZINE 25 MG Tablet PO (21:14)
[2022-09-29] VITALS (8 sets, daily range): BP systolic 133–163; BP diastolic 70–79; PULSE 60–69; RESP 16–20; TEMP 36.6–36.7; O2SAT 91–98
[2022-09-29] MEDS: hydrALAZINE 25 MG Tablet PO (05:46)
[2022-09-29] MEDS: 0.9% Saline Lock 10 ML Syringe IV (05:46)
[2022-09-29] MEDS: Heparin Injection (Vial) 5,000 UNIT/ML VIAL 5000 UNIT SC (05:46)
[2022-09-29] MEDS: Gabapentin 400 MG Capsule PO (05:46)
[2022-09-29 06:56] LABS: Absolute Neutrophil Count 7.4 X10^3/uL (2.0-7.7); Hematocrit 36.8 % (40-54); Lymphocyte % 8.5 % (19-41); Mean Corp Hgb Conc 32.6 g/dL (32-36); Mean Corpuscular Hgb 31.7 pg (27.0-32.0); Mean Corpuscular Volume 97.1 fL (80-94); Mean Platelet Vol. 10.9 fl (6.2-12.0); Monocyte# 0.12 X10^3/uL; Monocyte% 1.5 % (0-10); NRBC Flagged by Analyzer 0 % (0-5); Neutrophil # 7.41 X10^3/uL (2.7-7.7); Neutrophil % 89.6 % (47-70); Platelet Count 188 K/mm3 (150-450); RBC Distribution Width CV 14.7 % (11.6-14.6); RBC Distribution Width SD 52.6 fl (35.1-43.9); Red Blood Count 3.79 M/mm3 (4.6-6.2); White Blood Count 8.3 K/mm3 (4.4-11.0)
[2022-09-29 07:26] LABS: ALB/GLOB Ratio 0.7 RATIO (0.9-2.4); AST(SGOT) 19 U/L (15-37); Alanine Aminotransfer ALT/SGPT 31 U/L (16-61); Albumin, Serum 3.1 g/dL (3.2-5.0); Alkaline Phosphatase 129 U/L (45-117); Anion Gap 6 (5-15); BUN 22 mg/dL (7-18); BUN/Creat Ratio 11.5 RATIO (10-20); Calcium,Total 9.1 mg/dL (8.5-10.1); Chloride 98 mmol/L (98-107); Creatinine, Serum 1.92 mg/dL (0.70-1.30); EST Glomerular Filtration Rate 37 mL/min (>60); Est Glom Filt Rate - Afr Amer 45 mL/min (>60); Estimated Creatinine Clearance 32.31 ml/min; Globulin 4.3 g/dL (2.2-4.2); Glucose 235 mg/dL (74-106); Potassium 3.2 mmol/L (3.5-5.1); Protein, Total 7.4 g/dL (6.4-8.2); Sodium Level 134 mmol/L (136-145)
[2022-09-29] MEDS: Ipratropium/Albuterol Sulfate 3 ML AMPUL.NEB INHALATION ×2 (07:28→10:50)
[2022-09-29] MEDS: Potassium Chloride Oral Tablet 20 MEQ 40 MEQ PO (08:37)
[2022-09-29] MEDS: Carvedilol 25 MG Tablet PO (08:38)
[2022-09-29] MEDS: FLUoxetine 20 MG Capsule PO (08:38)
[2022-09-29] MEDS: amLODIPine 5 MG Tablet PO (08:38)
[2022-09-29] MEDS: Isosorbide Mononitrate 30 MG Tablet PO (08:38)
--- NOTE | 2022-09-29 09:35 | CASEMGMT ---
[facility] Assessment: Face to Face with pt for initial transition planning/care coordination assessment. RN AARON introduced self and role at [facility], pt voices understanding and consents to assessment. Pt is A/O x4 and answers all questions appropriately at this time. Pt had been ambulating in the ansari to get coffee without AD on RA. Care providers, pharmacy, and demographics verified/updated. Admitting Dx: PNA PCP:Sandra Specialists:Jay, cardio; glendy Mcgill Preferred [facility]acy: [facility] Insurance: [employer] [facility] Prescription Benefit: yes LNOK: Rosalind Wolfe, ; Flor Nevaeh, stepdtr Living Arrangements: Pt lives with and great grandson who is 18, in a single story house with 3 steps to enter. Pt reports he is I in ADL's and denies concerns at home. Transportation: Pt drives self and denies concerns with transportation. DME/HHC/SNF: Pt denies having any DME in the home, previous HHC or SNF stays. Pt states no concerns with going home at time of dc. Pt denies need for any homegoing services. Discussed Patient Link and pt states he monitors his BP at home and calls it in to his doctor periodically. He is not interested in patient link. Pt states no further concerns/needs. CM to follow. Advised pt to ask CM if any further question/concerns/needs arise, voices understanding. Pt Goal: Home Plan: Home
--- NOTE | 2022-09-29 11:49 | DCINST_ITS ---
Discharge Instructions Diet Discharge Diet: Low fat / Low cholesterol Activity Discharge Activity: Return to Normal Activity Dressing / Incision Call your doctor if you observe: Fever of 101 or Higher, Shortness of breath, Dizziness, Fainting spells, Swelling in the ankles, Chest pain and Increased palpitations (irregular heartbeat) Follow Up Care Test Results: Test results from this visit will be discussed in further detail at your follow- up appointment, if applicable. Discharge Plan Admission Admit Date/Time: 09/28/22 17:08 Attending Provider: Guilherme Saxena Primary Care Provider: Archie Flores Consulting Providers: Nohemy Santoro Discharge Orders/Prescriptions Prescriptions: New azithromycin 500 mg tablet 500 mg PO DAILY 2 Days Qty: 2 0RF Rx Instructions: start on day 2 of therapy cefdinir 300 mg capsule 300 mg PO BID Qty: 10 0RF prednisone 20 mg tablet 40 mg PO DAILY 7 Days Qty: 14 0RF Continued nitroglycerin 0.4 mg tablet, sublingual 0.4 mg SUBLINGUAL Q5-15M PRN (Reason: CHEST PAIN) mirtazapine 15 mg tablet 15 mg PO QHS albuterol sulfate 0.63 mg/3 mL solution for nebulization 0.63 mg INHALATION TID PRN (Reason: SOB) amlodipine 5 mg tablet 5 mg PO DAILY fluoxetine 20 mg capsule 20 mg PO BID Label Comments: depression gabapentin 400 mg capsule 400 mg PO TID Label Comments: neuropathy atorvastatin 10 MG tablet 10 mg PO DAILY carvedilol 25 mg tablet 25 mg PO BID hydralazine 25 mg tablet 25 mg PO TID isosorbide mononitrate 30 mg tablet extended release 24 hr 30 mg PO DAILY Qty: 90 3RF potassium chloride 20 mEq tablet,ER particles/crystals 40 meq PO DAILY Qty: 180 3RF Held furosemide 40 mg tablet 40 mg PO .COMPLEX Qty: 180 3RF Hold Instructions: Resume on 10/02/22. Rx Instructions: 40 mg orally; 80mg in AM and 40mg in PM x3 days and then return to 40mg PO BID based on HF Logic- 21 on 07/17/22 Referrals / Follow Up: Archie Flores MD [Primary Care Provider] - 10/04/22 Disposition Disposition (needs filled in before D/C Order can be placed): Home, Self Care
--- NOTE | 2022-09-29 13:36 | DS.PCM_ITS ---
Providers Date of Admission: 09/28/22 Primary Care Physician: Dr. Archie Flores MD Reason For Visit: PNEUMONIA Diagnosis Discharge Diagnosis (1) Pneumonia: Status: Acute Code(s): J18.9 - Pneumonia, unspecified organism Medications at Discharge Home Medications fluoxetine 20 mg capsule 20 mg PO BID anxiety 04/23/19 gabapentin 400 mg capsule 400 mg PO TID pain 04/23/19 nitroglycerin 0.4 mg sublingual tablet 0.4 mg sublingual Q5-15M PRN CHEST PAIN 04/23/19 atorvastatin 10 mg tablet 10 mg PO DAILY cholesterol 04/27/19 mirtazapine 15 mg tablet 15 mg PO QHS 12/03/19 albuterol sulfate 0.63 mg/3 mL solution for nebulization 0.63 mg inhalation TID PRN SOB 02/19/20 amlodipine 5 mg tablet 5 mg PO DAILY 07/09/20 isosorbide mononitrate 30 mg tablet,extended release 24 hr 30 mg PO DAILY #90 tabs 12/22/21 potassium chloride 20 mEq tablet,extended release(part/cryst) 40 meq PO DAILY #180 tabs 01/11/22 furosemide 40 mg tablet 40 mg PO .COMPLEX #180 tabs 07/19/22 carvedilol 25 mg tablet 25 mg PO BID HEART 09/28/22 hydralazine 25 mg tablet 25 mg PO TID 09/28/22 azithromycin 500 mg tablet 500 mg PO DAILY 2 days #2 tabs 09/29/22 cefdinir 300 mg capsule 300 mg PO BID #10 caps 09/29/22 prednisone 20 mg tablet 40 mg PO DAILY 7 days #14 tabs 09/29/22 Hospital Course Operations None Procedures None Summary of Care Provided Minutes Spent on Discharge: 42 Hospital Course: Per HPI: INNA AHMADI, is a 72 M who presents with the above.? Patient is a 72-year-old with past medical history COPD, chronic smoker, history of abdominal aortic aneurysm repair, chronic heart failure with reduced EF/nonischemic cardiomyopathy who comes in with complaints of shortness of breath and cough.? This has? been ongoing for about a week.? His stated around Thanksgiving, she had a 3-day history of upper respiratory illness with sore throat.? That seemed to have gone away.? Patient subsequently developed fatigue, cough, not productive of any sputum.? He denied any fever or chills. Patient's vitals in the ED showed blood pressure 144/79, heart rate 70, respiratory 16, temperature 98.4 F, oxygen sat at 97% on room air.? Patient later on required 2 L of oxygen. WBC count is 6.2, hemoglobin 11.6, platelet count 184, BMP unremarkable except for creatinine 1.66 which is his baseline. BNPep is 708.8.? Rapid COVID-19 antigen test as well as influenza screen was negative. Chest x-ray showed bibasilar pulmonary infiltrates worse on the left, superimposed on mild CHF.? Respiratory panel was pending Hospital Course: 1. Acute hypoxia secondary to pneumonia and a COPD exacerbation with possible exacerbation of his combined CHF?72-year-old male presented to the hospital with shortness of breath and a cough that been going on for about a week. His BNP was elevated to 708, and his COVID and influenza test were negative however chest x-ray showed bibasilar pulmonary infiltrates that were worse on the left with mild CHF. He was started on antibiotics and given a dose of IV Lasix. This morning he was completely off oxygen and ambulated on room air at 94%. He asked if he could go home today. I discussed with him that his renal function was worse today with creatinine of 1.92, he states that he follows up with a president/[employer] and has a doctor's appointment on Tuesday. He has 1 kidney with 2 renal arteries with variable stenosis 1 is 60% stenosed and the other is 40% stenosed on the right. I discussed the situation with his president/[employer] who felt that it would be okay to hold his Lasix for a few days and follow-up with primary care doctor on Tuesday. I discussed with him that it would be best if he stayed 1 more night so we could check a creatinine in the morning however he f elt much better than when he came in and he wanted to go home today. We will continue with azithromycin 500 mg for 2 more doses and then 5 more days of cefdinir 300 mg twice daily. Also do 7 days of steroids as well as breathing treatments and have him follow-up as an outpatient. Will recommend that he hold his Lasix and he can restart this on Tuesday. He and his expressed understanding of the risk and benefits of going home and would still like to go home. He was discharged home faster than anticipated secondary to his desire as well as rapid improvement in his hypoxia due to appropriate care. 2. 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, hypertension, hyperlipidemia, depression are all chronic medical change which complicate his care at his home medications were continued where appropriate Physical Exam Narrative General: Alert, Oriented x3, Cooperative, No apparent distress HEENT: Atraumatic, PERRLA, EOMI, Normocephalic Oral: Moist Mucosa Neck: Supple, No JVD Lungs: Diminished, Normal air movement, No rhonchi, wheeze, No rales Cardiovascular: Regular rate, Regular Rhythm, Normal S1, Normal S2, No murmurs Abdomen: Soft, Non Tender, Non-Distended, No Hepato-splenomegaly Extremities: No edema, Capillary Refill Less than 3 Seconds Skin: No rashes, No breakdown Musculoskeletal: No Tenderness to Palpation of Joints or Extremities Neurological: Cranial nerves II-XII grossly intact, Motor Exam 5/5 strength throughout, Sensory exam intact to light touch and pain Psych/Mental Status: Normal Affect, Appropriate Weight / BMI Weight Weight: 157 lb 3.033 oz Body Mass Index (BMI) 25.4 ABG / Lab / Microbiology Data Result Diagrams: 09/29/22 06:28 09/29/22 06:28 Laboratory: Laboratory Results - last 24 hr 09/28/22 16:00: WBC 6.3, RBC 3.51 L, Hgb 11.6 L, Hct 34.3 L, MCV 97.7 H, MCH 33.0 H, MCHC 33.8, RDW Std Deviation 55.2 H, RDW Coeff of Karen 15.3 H, Plt Count 184, MPV 10.7, Immature Gran % (Auto) 0.300, Neut % (Auto) 61.0, Lymph % (Auto) 22.9, [place] % (Auto) 8.8, Eos % (Auto) 6.5 H, Baso % (Auto) 0.5, Absolute Neuts (auto) 3.8, Absolute Lymphs (auto) 1.44, Nucleated RBC % 0 09/28/22 16:00: Sodium 136, Potassium 3.6, Chloride 101, Carbon Dioxide 32.0, Anion Gap 3 L, BUN 16, Creatinine 1.66 H, Estim Creat Clear Calc 37.37, Est GFR (MDRD) Af Amer 53 L, Est GFR (MDRD) Non-Af 44 L, BUN/Creatinine Ratio 9.6 L, Glucose 98, Calcium 8.9 09/28/22 16:00: B-Natriuretic Peptide 708.8 H 09/28/22 16:00: Total Bilirubin 0.50, Direct Bilirubin 0.16, AST 20, ALT 33, Alkaline Phosphatase 119 H, Total Protein 6.9, Albumin 3.1 L, Globulin 3.8 09/29/22 06:28: WBC 8.3, RBC 3.79 L, Hgb 12.0 L, Hct 36.8 L, MCV 97.1 H, MCH 31.7, MCHC 32.6, RDW Std Deviation 52.6 H, RDW Coeff of Karen 14.7 H, Plt Count 188, MPV 10.9, Immature Gran % (Auto) 0.400, Neut % (Auto) 89.6 H, Lymph % (Auto) 8.[address] L, [place] % (Auto) 1.5, Eos % (Auto) 0.0, Baso % (Auto) 0.0, Absolute Neuts (auto) 7.4, Absolute Lymphs (auto) 0.70 L, Nucleated RBC % 0 09/29/22 06:28: Sodium 134 L, Potassium 3.2 L, Chloride 98, Carbon Dioxide 30.0, Anion Gap 6, BUN 22 H, Creatinine 1.92 H, Estim Creat Clear Calc 32.31, Est GFR (MDRD) Af Amer 45 L, Est GFR (MDRD) Non-Af 37 L, BUN/Creatinine Ratio 11.5, Glucose 235 H, Calcium 9.1, Total Bilirubin 0.40, AST 19, ALT 31, Alkaline Phosphatase 129 H, Total Protein 7.4, Albumin 3.1 L, Globulin 4.3 H, Albumin/Globulin Ratio 0.7 L Microbiology: Microbiology 09/28/22 20:40 Urine, Clean Catch Legionella Antigen - Final 09/28/22 20:40 Urine, Clean Catch Streptococcus pneumoniae Antigen (M - Final 09/28/22 17:40 Mucosa - Nasopharyngeal Respiratory Panel (PCR) - Final 09/28/22 15:33 Nasal Secretion SARS-CoV-2 & FLU Antigen (Rapid) - Final Radiography Diagnostic Testing: Radiology Impression Chest X-Ray 09/28/22 15:00 IMPRESSION: Findings suggestive of bibasilar pulmonary infiltrates worse on the left side superimposed on mild CHF. Blunting of the left costophrenic angle. Electronically Signed: James Pérez MD at 15:41 EST , D/C Instructions Discharge Diet: Low fat / Low cholesterol Call your doctor if you observe: Fever of 101 or Higher, Shortness of breath, Dizziness, Fainting spells, Swelling in the ankles, Chest pain and Increased palpitations (irregular heartbeat) Meaningful Use Info Meaningful Use Diagnoses (Choose all that apply): None applicable Discharge Plan Admission Admit Date/Time: 09/28/22 17:08 Attending Provider: Guilherme Saxena Primary Care Provider: Archie Flores Consulting Providers: Nohemy Santoro Instructions Additional Instructions / Restrictions: Follow-up with a repeat BMP to monitor your renal function with your primary care doctor on Tuesday. Please hold your Lasix until Tuesday as your kidney function was higher than your baseline. This was discussed with your president/[employer]. Discharge Orders/Prescriptions Prescriptions: New azithromycin 500 mg tablet 500 mg PO DAILY 2 Days Qty: 2 0RF Rx Instructions: start on day 2 of therapy cefdinir 300 mg capsule 300 mg PO BID Qty: 10 0RF prednisone 20 mg tablet 40 mg PO DAILY 7 Days Qty: 14 0RF Continued nitroglycerin 0.4 mg tablet, sublingual 0.4 mg SUBLINGUAL Q5-15M PRN (Reason: CHEST PAIN) mirtazapine 15 mg tablet 15 mg PO QHS albuterol sulfate 0.63 mg/3 mL solution for nebulization 0.63 mg INHALATION TID PRN (Reason: SOB) amlodipine 5 mg tablet 5 mg PO DAILY fluoxetine 20 mg capsule 20 mg PO BID Label Comments: depression gabapentin 400 mg capsule 400 mg PO TID Label Comments: neuropathy atorvastatin 10 MG tablet 10 mg PO DAILY carvedilol 25 mg tablet 25 mg PO BID hydralazine 25 mg tablet 25 mg PO TID isosorbide mononitrate 30 mg tablet extended release 24 hr 30 mg PO DAILY Qty: 90 3RF potassium chloride 20 mEq tablet,ER particles/crystals 40 meq PO DAILY Qty: 180 3RF Held furosemide 40 mg tablet 40 mg PO .COMPLEX Qty: 180 3RF Hold Instructions: Resume on 10/02/22. Rx Instructions: 40 mg orally; 80mg in AM and 40mg in PM x3 days and then return to 40mg PO BID based on HF Logic- 21 on 07/17/22 Referrals / Follow Up: Archie Flores MD [Primary Care Provider] - 10/04/22 Disposition Disposition (needs filled in before D/C Order can be placed): Home, Self Care Charges/Coding Visit Charges Inpatient E&M: 08975 Disch Hosp
== END 2022-09-29 12:18 | disposition home or self-care (01) | DRG 194 ==
LOC: ED 17:14 → MS3 17:20
PROVIDERS: Admitting Provider Internal Medicine; Emergency Provider Emergency Medicine; PCP Family Medicine; Visit Provider Family Medicine
DX: J18.9 Pneumonia, unspecified organism (principal); J44.1 Chronic obstructive pulmonary disease with (acute) exacerbation; I13.0 Hypertensive heart and chronic kidney disease with heart failure and stage 1 through stage 4 chronic kidney disease, or unspecified chronic kidney disease; I42.8 Other cardiomyopathies; I50.22 Chronic systolic (congestive) heart failure; J44.0 Chronic obstructive pulmonary disease with (acute) lower respiratory infection; I70.1 Atherosclerosis of renal artery; N18.31 Chronic kidney disease, stage 3a; E78.00 Pure hypercholesterolemia, unspecified; F17.210 Nicotine dependence, cigarettes, uncomplicated; R09.02 Hypoxemia; F32.A Depression, unspecified
CPT/HCPCS: 71046; 80048; 80053; 80076; 83880; 85025; 87428; 87449; 87633; 94640; 99251; 99285; 99406; J7050; A4216; G0463; J1940

== ENCOUNTER 2022-10-10 19:30 | Emergency (ER) | payer MEDICARE, SELFPAY ==
[2022-10-10 19:31] VITALS: BP 182/91; PULSE 73; RESP 4; TEMP 37.1; O2SAT 96; BMI 25.9
--- NOTE | 2022-10-10 19:45 | EKG12_ITS ---
Test Reason : cp Blood Pressure : / mmHG Vent. Rate : 069 BPM Atrial Rate : 069 BPM P-R Int : 174 ms QRS Dur : 100 ms QT Int : 424 ms P-R-T Axes : 050 -13 152 degrees QTc Int : 454 ms Normal sinus rhythm Left ventricular hypertrophy with repolarization abnormality ( R in aVL , Sokolow-Aguayo , [place] prod uct ) Abnormal ECG Confirmed by SINAI BRAXTON, GUILLERMO ([id number]), industrial editor NANI ALFARO ([id number]) on 10/11/2022 12:56:57 PM Referred By: Confirmed By:GUILLERMO RAWLS MD
[2022-10-10 20:03] LABS: Absolute Lymphocyte Count 1.79 X10^3/uL (0.83-4.51); Absolute Neutrophil Count 7.8 X10^3/uL (2.0-7.7); Basophil# 0.02 X10^3/uL; Basophil% 0.2 % (0-1); Eosinophil# 0.33 X10^3/uL; Hematocrit 38.4 % (40-54); Hemoglobin 12.8 g/dL (13.0-16.5); Lymphocyte # 1.79 X10^3/ul (0.83-4.51); Lymphocyte % 16.5 % (19-41); Mean Corp Hgb Conc 33.3 g/dL (32-36); Mean Corpuscular Hgb 32.4 pg (27.0-32.0); Mean Corpuscular Volume 97.2 fL (80-94); Mean Platelet Vol. 10.7 fl (6.2-12.0); Monocyte# 0.81 X10^3/uL; Monocyte% 7.5 % (0-10); NRBC Flagged by Analyzer 0 % (0-5); Neutrophil # 7.84 X10^3/uL (2.7-7.7); Neutrophil % 72.2 % (47-70); Platelet Count 167 K/mm3 (150-450); RBC Distribution Width CV 15.7 % (11.6-14.6); RBC Distribution Width SD 55.9 fl (35.1-43.9); Red Blood Count 3.95 M/mm3 (4.6-6.2); White Blood Count 10.9 K/mm3 (4.4-11.0)
--- NOTE | 2022-10-10 20:04 | RAD_ITS ---
STUDY: X-RAY CHEST REASON FOR EXAM: Male, 72 years old. chest pain TECHNIQUE: Single AP portable view of the chest. COMPARISON: 09/28/2022 FINDINGS: Left subclavian single lead AICD. Poor inspiration with some bibasilar atelectasis. There is no demonstrated pleural abnormality. There is moderate cardiac enlargement. Normal mediastinum and leanne. There is prominence of the pulmonary hilar arteries and peripheral pulmonary arteries, consistent with congestive heart failure (CHF). Normal visualized aortic arch and descending thoracic aorta. Normal visualized thoracic spine. Normal visualized ribs, clavicles, and shoulders. There is no demonstrated abnormality of the visualized soft tissue structures of the upper abdomen. RAD/Chest 1 View (Portable) IMPRESSION: Mild congestive heart failure. Electronically Signed: Salty Victoria MD at 20:42 EST ,
[2022-10-10] MEDS: Aspirin 81 MG TAB.CHEW 324 MG PO (20:13)
--- NOTE | 2022-10-10 20:16 | EX.ED.DYSGE1 ---
HPI <MELANIE Kelly - Last Filed: 10/10/22 20:54> History of Present Illness Chief Complaint: Chest Pain Narrative Narrative: 72-year-old male with PMH of HTN, HLD, COPD, CKD, CHF, AAA presents with left sided squeezing chest pain that started at 6 PM while sitting on the couch. Pain radiated towards his left shoulder. There is no associated shortness of breath, nausea or vomiting, or diaphoresis. He took nitro x2 which helped for about 5 minutes. He does not get chest pain or use nitro frequently. He reports having a normal stress test 3 years ago. He states now while here he feels like he is having gastric reflux and reports eating chili around 5 PM. 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) Anxiety Arthritis Back pain Benign paroxysmal positional vertigo Bradycardia Cancer Cardiology follow-up encounter Cephalgia Chest pain Chronic abdominal pain Chronic cough Chronic HFrEF (heart failure with reduced ejection fraction) Chronic renal insufficiency, stage II (mild) CKD (chronic kidney disease) COPD (chronic obstructive pulmonary disease) Depression Depressive disorder Dizziness Easy bruising Essential hypertension Essential hypertension Gastric reflux GERD (gastroesophageal reflux disease) Hiatal hernia High cholesterol History of hiatal hernia History of pain when walking History of stress test History of ulceration Hx of echocardiogram Injury of head and neck Left ventricular apical thrombus Loss of hearing Myocardial infarct, old Non-ischemic cardiomyopathy Overweight (BMI 25.0-29.9) Palpitations Pulmonary fibrosis Shortness of breath on exertion Smoker Stage 2 moderate COPD by GOLD classification Symptomatic bradycardia Syncope Testicular cancer Tobacco abuse Wears dentures Wears glasses Home Medications fluoxetine 20 mg capsule 20 mg PO BID anxiety 04/23/19 [History Last Taken 09/28/22] gabapentin 400 mg capsule 400 mg PO TID pain 04/23/19 [History Last Taken 09/28/22] nitroglycerin 0.4 mg sublingual tablet 0.4 mg sublingual Q5-15M PRN CHEST PAIN 04/23/19 [History Last Taken 04/25/19] atorvastatin 10 mg tablet 10 mg PO DAILY cholesterol 04/27/19 [History Last Taken 09/28/22] mirtazapine 15 mg tablet 15 mg PO QHS 12/03/19 [History Last Taken 09/27/22] albuterol sulfate 0.63 mg/3 mL solution for nebulization 0.63 mg inhalation TID PRN SOB 02/19/20 [History Last Taken 09/28/22] amlodipine 5 mg tablet 5 mg PO DAILY 07/09/20 [History Last Taken 09/28/22] isosorbide mononitrate 30 mg tablet,extended release 24 hr 30 mg PO DAILY #90 tabs 12/22/21 [Rx Last Taken 09/28/22] potassium chloride 20 mEq tablet,extended release(part/cryst) 40 meq PO DAILY #180 tabs 01/11/22 [Rx Last Taken 09/28/22] carvedilol 25 mg tablet 25 mg PO BID HEART 09/28/22 [History Last Taken 09/28/22] hydralazine 25 mg tablet 25 mg PO TID 09/28/22 [History Last Taken 09/28/22] azithromycin 500 mg tablet 500 mg PO DAILY 2 days #2 tabs 09/29/22 [Rx Last Taken Unknown] cefdinir 300 mg capsule 300 mg PO BID #10 caps 09/29/22 [Rx Last Taken Unknown] prednisone 20 mg tablet 40 mg PO DAILY 7 days #14 tabs 09/29/22 [Rx Last Taken Unknown] furosemide 40 mg tablet 40 mg PO BID #180 tabs 10/07/22 [Rx Last Taken Unknown] Allergy/AdvReac Type Severity Reaction Status Date / Time LASHONDA Inhibitors Allergy Severe Angioedema Verified 10/10/22 19:35 lisinopril Allergy Severe Angioedema Verified 10/10/22 19:35 Family History Father Cancer bone AAA (abdominal aortic aneurysm) Grandfather AAA (abdominal aortic aneurysm) Uncle AAA (abdominal aortic aneurysm) Surgical History H/O umbilical hernia repair History of AAA (abdominal aortic aneurysm) repair History of arthroscopic knee surgery History of corneal transplant History of foot surgery History of implantable cardiac defibrillator (ICD) History of knee surgery History of left heart catheterization (02/08/20) History of orchiectomy History of surgery on left wrist History of tonsillectomy Implantable cardioverter-defibrillator (ICD) in situ (08/21/20) Trigeminal neuralgia Social History Smoking Status: Current every day smoker tobacco type: cigarettes and cigars per week: 14 Tobacco: How many years used: 50 alcohol intake: never substance use type: does not use caffeine: Yes Type: coffee Number of servings: 5 ROS <MELANIE Kelly - Last Filed: 10/10/22 20:54> ROS ED ROS Narrative Constitutional: Negative for fever, chills, malaise. Eyes: Negative for visual change. ENT: Negative for sore throat, ear pain, rhinorrhea. CVS: Positive for chest pain. Negative for palpitations, syncope. Respiratory: Negative for shortness of breath, cough, orthopnea. GI: Negative for abdominal pain, nausea, vomiting, diarrhea, constipation, melena, hematochezia. : Negative for dysuria, hematuria or frequency. Neuro: Negative for headache, motor/sensory dysfunction. Skin: Negative for rash, abscess, or wound. Musc: Negative for joint pain, swelling, trauma. Heme: Negative for easy bruising, bleeding, lymphadenopathy. EXAM <MELANIE Kelly - Last Filed: 10/10/22 20:54> Physical Exam Narrative Exam Narrative: CONST: Patient sitting in no acute distress. EYES: Normal inspection. ENT: Normal inspection, moist mucous membranes. NECK: Normal inspection. RESP: No respiratory distress, CTAB. No chest wall tenderness CVS: Regular rate and rhythm, no murmur, no gallop. ABD: Soft and nontender, no guarding or rebound, nondistended, no hepatosplenomegaly. SKIN: Color normal, no rash, warm, dry, intact. EXTREMITIES: Normal appearance, no pedal edema. NEURO: Oriented x4. PSYCH: Normal affect. Const Vital Signs: 10/10/22 19:31 10/10/22 19:33 Temperature 98.8 F Temperature Source Temporal Pulse Rate 73 Respiratory Rate 4 L Respiratory Effort Normal Non-Labored Blood Pressure 182/91 H Blood Pressure Mean 121 Pulse Ox 96 Oxygen Delivery Method Room Air <Bart Caballero MD - Last Filed: 10/10/22 22:28> Physical Exam Const Vital Signs: 10/10/22 19:31 10/10/22 19:33 Temperature 98.8 F Temperature Source Temporal Pulse Rate 73 Respiratory Rate 4 L Respiratory Effort Normal Non-Labored Blood Pressure 182/91 H Blood Pressure Mean 121 Pulse Ox 96 Oxygen Delivery Method Room Air MDM <MELANIE Kelly - Last Filed: 10/10/22 20:54> MDM MDM Narrative Medical decision making narrative: Patient presents with left-sided chest pain that started at rest. He appears well and nontoxic. BP is 182/91, otherwise normal vital signs. His exam is unremarkable. EKG is sinus rhythm with ST depressions in the lateral leads but this is unchanged from prior EKG on 08/05/2020. Troponin is 44, delta pending. Basic lab work overall unremarkable with anemia in the trending up at 12.8, normal electrolytes and baseline CKD at 2.01. LFTs and lipase are WNL. Lab Data Attestation: I reviewed the patient's lab results. Labs: Laboratory Results - last 24 hr 10/10/22 10/10/22 10/10/22 19:35 19:35 21:52 WBC 10.9 RBC 3.95 L Hgb 12.8 L Hct 38.4 L MCV 97.2 H MCH 32.4 H MCHC 33.3 RDW Std Deviation 55.9 H RDW Coeff of Karen 15.7 H Plt Count 167 MPV 10.7 Immature Gran % (Auto) 0.600 Neut % (Auto) 72.2 H Lymph % (Auto) 16.5 L [place] % (Auto) 7.5 Eos % (Auto) 3.0 Baso % (Auto) 0.2 Absolute Neuts (auto) 7.8 H Absolute Lymphs (auto) 1.79 Nucleated RBC % 0 Sodium 136 Potassium 3.9 Chloride 102 Carbon Dioxide 28.0 Anion Gap 6 BUN 28 H Creatinine 2.01 H Estim Creat Clear Calc 31.97 Est GFR (MDRD) Af Amer 42 L Est GFR (MDRD) Non-Af 35 L BUN/Creatinine Ratio 13.9 Glucose 204 H Calcium 8.6 Total Bilirubin 0.30 Direct Bilirubin 0.12 AST 16 ALT 22 Alkaline Phosphatase 101 Troponin I High Sens 44 43 Total Protein 6.8 Albumin 3.0 L Globulin 3.8 Lipase 131 Radiography Diagnostic Testing: Clinical Impression(s) from Imaging Studies Chest X-Ray 10/10/22 20:04 IMPRESSION: Mild congestive heart failure. Electronically Signed: Salty Victoria MD at 20:42 EST , EKG Initial EKG: Attestation: I personally reviewed and interpreted this EKG as follows: Interpretation: Sinus Rhythm Comments: Normal sinus rhythm at 69 bpm, LVH, ST depression V4 through V6. No T wave inversions, no STEMI. <Bart Caballero MD - Last Filed: 10/10/22 22:28> [facility] MDM Narrative Medical decision making narrative: Patient presents with left-sided chest pain that started at rest. He appears well and nontoxic. BP is 182/91, otherwise normal vital signs. His exam is unremarkable. EKG is sinus rhythm with ST depressions in the lateral leads but this is unchanged from prior EKG on 08/05/2020. Troponin is 44, delta pending. Basic lab work overall unremarkable with anemia in the trending up at 12.8, normal electrolytes and baseline CKD at 2.01. LFTs and lipase are WNL. Chest x-ray interpreted by ED physician shows mild CHF. He already takes Lasix. Pulse ox is normal. Second troponin 43 for a delta troponin of -1. At this point in time I feel he can be discharged safely home with follow-up. Disposition is discharged home in stable condition I have personally performed a face to face assessment of the patient and have reviewed the JUDD Note. I performed a substantive portion of the visit including all aspects of the following. My rader findings include: History is chest pain, fleeting. Exam is afebrile. Vital signs noted. Regular rate and rhythm. Lungs clear to auscultation bilaterally. Abdomen soft and nontender. Medical Decision Making check EKG. Check labs. Check chest x-ray. My interpretation of the chest x-ray shows no acute process, mild CHF. Delta troponin negative. Discharge. Follow-up with cardiology. Other additions or changes: [None]. Lab Data Labs: Laboratory Results - last 24 hr 10/10/22 10/10/22 10/10/22 19:35 19:35 21:52 WBC 10.9 RBC 3.95 L Hgb 12.8 L Hct 38.4 L MCV 97.2 H MCH 32.4 H MCHC 33.3 RDW Std Deviation 55.9 H RDW Coeff of Karen 15.7 H Plt Count 167 MPV 10.7 Immature Gran % (Auto) 0.600 Neut % (Auto) 72.2 H Lymph % (Auto) 16.5 L [place] % (Auto) 7.5 Eos % (Auto) 3.0 Baso % (Auto) 0.2 Absolute Neuts (auto) 7.8 H Absolute Lymphs (auto) 1.79 Nucleated RBC % 0 Sodium 136 Potassium 3.9 Chloride 102 Carbon Dioxide 28.0 Anion Gap 6 BUN 28 H Creatinine 2.01 H Estim Creat Clear Calc 31.97 Est GFR (MDRD) Af Amer 42 L Est GFR (MDRD) Non-Af 35 L BUN/Creatinine Ratio 13.9 Glucose 204 H Calcium 8.6 Total Bilirubin 0.30 Direct Bilirubin 0.12 AST 16 ALT 22 Alkaline Phosphatase 101 Troponin I High Sens 44 43 Total Protein 6.8 Albumin 3.0 L Globulin 3.8 Lipase 131 Radiography Diagnostic Testing: Clinical Impression(s) from Imaging Studies Chest X-Ray 10/10/22 20:04 IMPRESSION: Mild congestive heart failure. Electronically Signed: Salty Victoria MD at 20:42 EST , Discharge Plan Triage Chief Complaint: Chest Pain ED Midlevel Provider: Susy Montero ED Provider: Bart Caballero Dx/Rx/DC Orders Clinical Impression: Chest pain, History of heart failure Instructions: ED Chest Pain, Uncertain Cause Prescriptions: No Action nitroglycerin 0.4 mg tablet, sublingual 0.4 mg SUBLINGUAL Q5-15M PRN (Reason: CHEST PAIN) mirtazapine 15 mg tablet 15 mg PO QHS albuterol sulfate 0.63 mg/3 mL solution for nebulization 0.63 mg INHALATION TID PRN (Reason: SOB) amlodipine 5 mg tablet 5 mg PO DAILY fluoxetine 20 mg capsule 20 mg PO BID Label Comments: depression gabapentin 400 mg capsule 400 mg PO TID Label Comments: neuropathy atorvastatin 10 MG tablet 10 mg PO DAILY carvedilol 25 mg tablet 25 mg PO BID hydralazine 25 mg tablet 25 mg PO TID azithromycin 500 mg tablet 500 mg PO DAILY 2 Days Qty: 2 0RF Rx Instructions: start on day 2 of therapy cefdinir 300 mg capsule 300 mg PO BID Qty: 10 0RF prednisone 20 mg tablet 40 mg PO DAILY 7 Days Qty: 14 0RF isosorbide mononitrate 30 mg tablet extended release 24 hr 30 mg PO DAILY Qty: 90 3RF potassium chloride 20 mEq tablet,ER particles/crystals 40 meq PO DAILY Qty: 180 3RF furosemide 40 mg tablet 40 mg PO BID Qty: 180 3RF Hold Instructions: Resume on 10/02/22. Primary Care Provider: Archie Flores Referrals: Archie Flores MD [Primary Care Provider] - 3-5 Days Disposition Disposition: Home, Self Care
[2022-10-10 20:25] LABS: AST(SGOT) 16 U/L (15-37); Alanine Aminotransfer ALT/SGPT 22 U/L (16-61); Alkaline Phosphatase 101 U/L (45-117); Anion Gap 6 (5-15); BUN 28 mg/dL (7-18); BUN/Creat Ratio 13.9 RATIO (10-20); Bilirubin, Direct 0.12 mg/dL (0.00-0.30); Calcium,Total 8.6 mg/dL (8.5-10.1); Chloride 102 mmol/L (98-107); Creatinine, Serum 2.01 mg/dL (0.70-1.30); EST Glomerular Filtration Rate 35 mL/min (>60); Est Glom Filt Rate - Afr Amer 42 mL/min (>60); Estimated Creatinine Clearance 31.97 ml/min; Globulin 3.8 g/dL (2.2-4.2); Glucose 204 mg/dL (74-106); Lipase 131 U/L (73-393); Potassium 3.9 mmol/L (3.5-5.1); Protein, Total 6.8 g/dL (6.4-8.2); Sodium Level 136 mmol/L (136-145); Troponin-I HS (w/2H Reflex) 44 pg/mL (3.0-78.0)
[2022-10-10] MEDS: Ondansetron 4 MG/2 ML Vial IV (20:45)
[2022-10-10] MEDS: Morphine 4 MG/ML Syringe IV (20:45)
[2022-10-10 21:55] LABS: Reflex Troponin-HS? (from REC) Y
[2022-10-10 22:25] LABS: Troponin-I HS 43 pg/mL (3.0-78.0)
[2022-10-10 22:49] VITALS: BP 132/68; PULSE 59; RESP 16; O2SAT 93
== END 2022-10-10 22:50 | disposition home or self-care (01) ==
PROVIDERS: Physician Assistant; Emergency Provider Emergency Medicine; PCP Family Medicine; Visit Provider Emergency Medicine
DX: R07.9 Chest pain, unspecified (principal); F17.210 Nicotine dependence, cigarettes, uncomplicated; Z95.810 Presence of automatic (implantable) cardiac defibrillator
CPT/HCPCS: 71045; 80048; 80076; 83690; 84484; 85025; 93005; 99284; A4216; J2405

== ENCOUNTER → 2022-11-11 | Outpatient (CLI) | payer MEDICARE, SELFPAY ==
--- NOTE | 2022-11-11 06:07 | ECHOD_ITS ---
Version 2 Reason For Study: CARDIOMYOPATHY Procedure This was a 2D Doppler, Color Flow transthoracic echocardiogram. Exam performed in department. Left Ventricle Normal LV size. Mild concentric left ventricular hypertrophy. The estimated ejection fraction is 50 %. Stage 2 diastolic dysfunction. There is borderline global hypokinesis of the left ventricle. Right Ventricle Normal RV size. ICD or pacer leads identified within the right ventricle. Normal systolic function. Atria The left atrium is moderately enlarged. The right atrium is mildly enlarged. Mitral Valve Normal mitral valve. Mild (1+) eccentric mitral valve insufficiency. Tricuspid Valve Normal tricuspid valve. Mild to moderate (1-2+) tricuspid valve insufficiency. Pulmonary artery systolic pressure is 53 mmHg. Aortic Valve Trisinus/trileaflet aortic valve. Pulmonic Valve Normal pulmonic valve. Mild (1+) pulmonic valve insufficiency. Great Vessels Normal aortic root. The pulmonary artery is normal size. Normal inferior vena cava. Pericardium/Pleural No pericardial effusion. MMode/2D Measurements & Calculations LVIDd: 6.4 cm IVSd: 1.3 cm Ao root diam: 4.0 cm LVIDs: 4.9 cm LVPWd: 1.3 cm RVDd: 4.1 cm FS: 23.8 % LAV(MOD-bp): 114.8 ml LA A4 area: 30.1 cm2 LA dimension(2D): 5.4 cm LAV(MOD-bp) Indexed: 62.1 ml/m2 LAV(MOD-sp2): 110.4 ml LAV(MOD-sp4): 108.6 ml RA A4 area: 21.6 cm2 Time Measurements MV dec time: 0.16 sec Doppler Measurements & Calculations MV E max kaushik: 114.7 cm/sec Lat Peak E' Kaushik: 6.5 cm/sec Med Peak E' Kaushik: 5.2 cm/sec MV A max kaushik: 59.3 cm/sec E/E' lat: 17.7 E/E' med: 22.1 MV E/A: 1.9 MV dec slope: 734.9 cm/sec2 Ao V2 max: 161.4 cm/sec LV V1 max: 93.5 cm/sec Ao max P.4 mmHg LV V1 max P.5 mmHg Ao V2 mean: 103.8 cm/sec LV V1 mean P.0 mmHg Ao mean P.0 mmHg LV V1 mean: 67.0 cm/sec Ao V2 VTI: 39.5 cm LV V1 VTI: 25.4 cm AV (velocity ratio): 0.64 PA V2 max: 119.6 cm/sec TR max kaushik: 349.0 cm/sec TR max P.7 mmHg ECHO/Echo Complete Interpretation Summary Normal LV size. The estimated ejection fraction is 50 %. There is borderline global hypokinesis of the left ventricle. ICD or pacer leads identified within the right ventricle. Mild concentric left ventricular hypertrophy. The left atrium is moderately enlarged. The right atrium is mildly enlarged. Stage 2 diastolic dysfunction. Pulmonary artery systolic pressure is 53 mmHg. The global longitudinal strain is mildly abnormal. The global longitudinal stra in = -15.3% (abnormal). Ordering Physician: Gregoria Vizcarra Referring Physician: Archie Flores Performed By: Marilu Li RDCS, RVT
--- NOTE | 2022-11-11 12:44 | STRESSREP ---
Stress Test Report Pharmacologic myocardial perfusion stress test. 72-year-old man with a history of chest pain Resting EKG demonstrates sinus bradycardia with a rate of 55 bpm. Resting blood pressure is 138/70 mmHg. 0.4 mg of regadenoson was infused per usual protocol followed by rapid intravenous saline flush injection. Continuous EKG monitoring was performed. The maximum heart rate was 77 bpm which was 51% of max impacted heart rate the maximum workload was 1 metabolic equivalent. At rest there were no ST or T wave changes noted to suggest ischemia and at peak infusion nonspecific ST changes were noted which did not meet the criteria for ischemia. No clinical angina is noted. The final blood pressure was 118/60 mmHg. Myocardial perfusion protocol. 11.4 mCi of technetium 99m sestamibi was injected at rest. 0.4 mg of regadenoson was infused per usual protocol. At peak infusion 33.1 mCi of technetium 99m sestamibi was injected stress images were obtained stress and rest images were reconstructed and compared in the short axis vertical long and horizontal long axis. Gated images were also obtained. Perfusion SPECT analysis: Review of the stress images demonstrate normal uptake of tracer noted in all areas of the myocardium. The resting images similar demonstrated normal uptake of tracer noted in all areas of the myocardium. No areas of reversibility are noted to suggest ischemia and no previous infarct is noted. Gated SPECT analysis: The gated ejection fraction is 44%. Conclusion: Normal pharmacologic myocardial perfusion stress test. Reduced ejection fraction.
== END | disposition home or self-care (01) ==
LOC: CVS 06:05
PROVIDERS: PCP Family Medicine; Visit Provider Nurse Practitioner Gerontology
DX: I51.9 Heart disease, unspecified (principal); R07.9 Chest pain, unspecified
CPT/HCPCS: 78452; 93017; 93306; A9500; A4216; J2785

== ENCOUNTER 2022-11-28 15:30 | Emergency (ER) | payer MEDICARE, SELFPAY ==
[2022-11-28 15:30] VITALS: BP 139/73; PULSE 52; RESP 22; TEMP 36.1; O2SAT 94; BMI 26.3
--- NOTE | 2022-11-28 15:43 | EKG12_ITS ---
Test Reason : SOB Blood Pressure : / mmHG Vent. Rate : 054 BPM Atrial Rate : 054 BPM P-R Int : 182 ms QRS Dur : 104 ms QT Int : 502 ms P-R-T Axes : 097 -06 160 degrees QTc Int : 476 ms Sinus bradycardia Left ventricular hypertrophy with repolarization abnormality ( R in aVL , Sokolow-Aguayo ) Abnormal ECG Confirmed by SINAI BRAXTON, GUILLERMO ([id number]), publications editor NANI ALFARO ([id number]) on 11/29/2022 1:10:26 PM Referred By: Confirmed By:GUILLERMO RAWLS MD
--- NOTE | 2022-11-28 15:53 | ED.VIS.DYS ---
HPI History of Present Illness Chief Complaint: Shortness of Breath Detail of Chief Complaint: Dyspnea, REY, wheezing, productive cough Informant: patient Onset/Context/Timing Onset: Days Context: gradual Timing: Continuous and Waxes and wanes Quality: Positive for Dyspnea on exertion and Wheezing; Negative for Orthopnea or PND Current Severity: Mild Maximum Severity: Severe Worsened by: - (Pain since the 80s only able to walk 5 to 10 feet before he has to stop to gasp for breath.) Relieved by: Nothing Associated Symptoms cough, rhinorrhea, post nasal drip, sore throat, subjective, chills and green sputum; Negative for ear pain, fever, sweats, clear sputum, white sputum or yellow sputum Chest Pain: Positive for None Narrative Narrative: Patient is a 72-year-old male who was admitted in September for pneumonia. He also had exacerbation of his COPD. He was treated with prednisone at that time. He presents today because of increased shortness of breath at rest and activity. He is only able to walk 5 to 10 feet before he has to stop. He reports chills. states he is always cold. There is been no documented fever. He does endorse rhinorrhea, congestion, postnasal drainage and sore throat. His cough is productive of greenish-brown sputum. This is been going on for some time. He denies GI symptoms. He denies symptoms. He denies leg pain, swelling or discoloration. He denies history of VTE. He has no risk factors for VTE. He does have a remote history of testicular cancer. 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) Anxiety Arthritis Back pain Benign paroxysmal positional vertigo Bradycardia Cancer Cardiology follow-up encounter Cephalgia Chest pain Chronic abdominal pain Chronic cough Chronic HFrEF (heart failure with reduced ejection fraction) Chronic renal insufficiency, stage II (mild) CKD (chronic kidney disease) COPD (chronic obstructive pulmonary disease) Depression Depressive disorder Dizziness Easy bruising Essential hypertension Essential hypertension Gastric reflux GERD (gastroesophageal reflux disease) Hiatal hernia High cholesterol History of hiatal hernia History of pain when walking History of stress test History of ulceration Hx of echocardiogram Injury of head and neck Left ventricular apical thrombus Loss of hearing Myocardial infarct, old Non-ischemic cardiomyopathy Overweight (BMI 25.0-29.9) Palpitations Pulmonary fibrosis Shortness of breath on exertion Smoker Stage 2 moderate COPD by GOLD classification Symptomatic bradycardia Syncope Testicular cancer Tobacco abuse Wears dentures Wears glasses Home Medications fluoxetine 20 mg capsule 20 mg PO BID anxiety 04/23/19 [History Last Taken 09/28/22] gabapentin 400 mg capsule 400 mg PO TID pain 04/23/19 [History Last Taken 09/28/22] nitroglycerin 0.4 mg sublingual tablet 0.4 mg sublingual Q5-15M PRN CHEST PAIN 04/23/19 [History Last Taken 04/25/19] atorvastatin 10 mg tablet 10 mg PO DAILY cholesterol 04/27/19 [History Last Taken 09/28/22] mirtazapine 15 mg tablet 15 mg PO QHS 12/03/19 [History Last Taken 09/27/22] albuterol sulfate 0.63 mg/3 mL solution for nebulization 0.63 mg inhalation TID PRN SOB 02/19/20 [History Last Taken 09/28/22] amlodipine 5 mg tablet 5 mg PO DAILY 07/09/20 [History Last Taken 09/28/22] potassium chloride 20 mEq tablet,extended release(part/cryst) 40 meq PO DAILY #180 tabs 01/11/22 [Rx Last Taken 09/28/22] carvedilol 25 mg tablet 25 mg PO BID HEART 09/28/22 [History Last Taken 09/28/22] doxycycline hyclate 100 mg capsule 100 mg PO BID 10/29/22 [History Last Taken Unknown] furosemide 40 mg tablet 40 mg PO DAILY 10/29/22 [History Last Taken Unknown] magnesium oxide 400 mg (241.3 mg magnesium) tablet 400 mg PO DAILY 10/29/22 [History Last Taken Unknown] hydralazine 25 mg tablet 25 mg PO TID #270 tabs 11/02/22 [Rx Last Taken Unknown] isosorbide mononitrate 30 mg tablet,extended release 24 hr 30 mg PO DAILY #90 tabs 11/02/22 [Rx Last Taken Unknown] doxycycline monohydrate 100 mg capsule 100 mg PO BID #14 CAPSULES 11/28/22 [Rx Last Taken Unknown] prednisone 20 mg tablet 60 mg PO DAILY #15 TABLETS 11/28/22 [Rx Last Taken Unknown] Allergy/AdvReac Type Severity Reaction Status Date / Time LASHONDA Inhibitors Allergy Severe Angioedema Verified 11/28/22 15:33 lisinopril Allergy Severe Angioedema Verified 11/28/22 15:33 Family History Father Cancer bone AAA (abdominal aortic aneurysm) Grandfather AAA (abdominal aortic aneurysm) Uncle AAA (abdominal aortic aneurysm) Surgical History H/O umbilical hernia repair History of AAA (abdominal aortic aneurysm) repair History of arthroscopic knee surgery History of corneal transplant History of foot surgery History of implantable cardiac defibrillator (ICD) History of knee surgery History of left heart catheterization (02/08/20) History of orchiectomy History of surgery on left wrist History of tonsillectomy Implantable cardioverter-defibrillator (ICD) in situ (08/21/20) Trigeminal neuralgia Social History (Updated 11/28/22 @ 15:[address] Melecio Castellano MD) household members: spouse Smoking Status: Current every day smoker tobacco type: cigarettes and cigars per week: 14 Tobacco: How many years used: 50 alcohol intake: never substance use type: does not use caffeine: Yes Type: coffee Number of servings: 5 ROS ROS ED Constitutional Constitutional ED: Reports chills; Denies fever(s), sweats or weight loss Eyes Eyes: Denies blurry vision, change in vision or diplopia ENT ENT ED: Reports rhinorrhea and sore throat; Denies ear pain Cardiovascular Cardiovascular: Denies chest pain, orthopnea, palpitations, paroxysmal nocturnal dyspnea or racing heartbeat Respiratory/Chest Respiratory/Chest: Reports cough, dyspnea, dyspnea on exertion and sputum; Denies orthopnea or paroxysmal nocturnal dyspnea Gastrointestinal Gastrointestinal: Denies abdominal pain, nausea or vomiting Genitourinary Genitourinary ED: Denies dysuria, hematuria or urinary frequency Musculoskeletal Musculoskeletal: Reports other Details: He denies swelling of his joints. ; Denies arthralgias, back pain, myalgias or neck pain Integumentary Denies rash Neurologic Neurologic: Reports weakness; Denies headache(s) or paresthesias Psychiatric Psychiatric: Denies anxiety or depression Endocrine Endocrinology: Denies cold intolerance or heat intolerance Hematologic/Lymphatic Hematologic/Lymphatic: Denies easy bleeding or easy bruising EXAM Physical Exam Const Vital Signs: 11/28/22 15:30 11/28/22 15:41 11/28/22 15:59 Temperature 97 F L Temperature Source Temporal Pulse Rate 52 L 54 L Respiratory Rate 22 H 16 Respiratory Effort Short of Breath Respiratory Depth Normal Respiratory Pattern Normal Blood Pressure 139/73 H Blood Pressure Mean 95 Pulse Ox 94 Oxygen Delivery Method Room Air Room Air 11/28/22 15:59 Temperature Temperature Source Pulse Rate Respiratory Rate 16 Respiratory Effort Non-Labored Respiratory Depth Respiratory Pattern Blood Pressure Blood Pressure Mean Pulse Ox 95 Oxygen Delivery Method Room Air Positive well nourished and well developed Constitutional Narrative: Patient has slightly labored breathing at rest and is tachypneic. General Appearance ED: well developed; Negative for NAD or pallor HEENT Reports dry mucous membranes HEENT Narrative: Head is atraumatic normocephalic. Ears normal. TMs normal. He has slight clear drainage right and left nares. Uvula is midline. There is no deviation of the tongue with protrusion. There is no erythema or exudate noted. Mouth ED: Yes dry mucous membranes Mouth: dry mucous membranes Eyes PERRL and EOMs intact bilaterally General Eye ED: Negative for pale conjunctiva or scleral icterus Neck no lymphadenopathy, supple, no meningeal signs and no JVD Neck Narrative: Trachea is. There is no inspiratory or expiratory stridor. Resp No normal respiratory effort and No clear to auscultation bilaterally Resp Narrative: There is egophony right and left lower lobe posteriorly with increased vocal fremitus on the left. Effort and Inspection: Negative for pain with movement Auscultation: rales left base and wheezes expiratory wheezes and throughout Cardio regular rhythm, S1 normal heart sound, S2 normal heart sound and no murmurs Rate: bradycardia GI non-tender, non-distended and no masses GI Narrative: There is no palpable pulsatile mass. There is no abdominal bruit. Auscultation: hypoactive bowel sounds Palpation: soft; Negative for hepatomegaly or splenomegaly Back/Spine no CVA tenderness and normal to inspection Extremity normal to inspection Extremity Narrative: There is no asymmetry, swelling, discoloration, leg vein distention, palpable cords or tenderness along the distribution of the deep venous system. Neuro oriented x3, CN's II-XII intact bilaterally and no sensory deficits noted Adam Coma Scale: document GCS findings Spontaneous Obeys Commands Oriented 15 Sensorium / Orientation: alert Motor Exam: strength 5/5 throughout Psych mental status grossly normal Skin General Skin Exam: Negative for jaundice or pallor Lesions: no lesions Rashes: no rashes MDM MDM MDM Narrative Medical decision making narrative: Differential diagnosis is exacerbation of COPD with exacerbation chronic bronchitis versus pneumonia. Wheezing may be due to CHF since he does have history of CHF with ejection fraction of 35% and stage II diastolic dysfunction. This may also represent fluid overload since patient has stage IIIa chronic kidney disease. To evaluate patient's symptoms and EKG was obtained to rule out acute cardiac ischemia. Since he was recently on prednisone he received IV Solu-Medrol as well as DuoNeb and albuterol nebulized treatment. Clinically patient does not have CHF. There is no clinical findings of left or right heart failure based on exam. Per old records patient was admitted September 29 for pneumonia and hypoxia. He does have history of CHF with an EF of 35% and stage II diastolic dysfunction. He does have stage IIIa chronic kidney disease. He has stage III COPD based on gold criteria. His blood splatter analyst is Dr. Ramiro Thompson. His director of design is Dr. Judd Mcgill. Their office notes were reviewed. Patient was reassessed at 10/30/2001. Patient states he is feeling better and moving more air. On auscultation he is moving more air. There is more expiratory rhonchi appreciated. He was informed because the radiologist concerned that this represents heart failure additional tests were ordered. Patient refused third aerosol treatment. Patient has not been using his maintenance meds as prescribed by Dr. Mcgill. Since patient is markedly improved with a respiratory rate of 16 without hypoxia and no respiratory distress at rest he will be discharged home with prescription for doxycycline, prednisone and to use his maintenance inhalers as prescribed. Lab Data Attestation: I reviewed the patient's lab results. Lab results narrative: The troponin is normal. BNP is elevated has been elevated on several prior occasions. Labs: Laboratory Results - last 24 hr 11/28/22 11/28/22 15:40 15:40 Troponin I High Sens 31 B-Natriuretic Peptide 784.6 H Radiography Diagnostic Testing: Clinical Impression(s) from Imaging Studies Chest X-Ray 11/28/22 16:15 IMPRESSION: Pulmonary vascular congestion with increased interstitial prominence that may be due to interstitial edema. Small bilateral effusions. Electronically Signed: Arun Kendrick MD at 16:36 EST , 2 view chest x-ray was independent reviewed interpreted by me. There is a difference in penetration. Cardiac silhouette and size is unremarkable. There is increased interstitial markings which may be due to pulmonary fibrosis. There is evidence of small bilateral pleural effusions. In light of this finding we will obtain a BNP. EKG Initial EKG: Attestation: I personally reviewed and interpreted this EKG as follows: Interpretation: Sinus Bradycardia (Rate is 54. There is evidence of left ventricular hypertrophy. CT intervals 182 ms. Cures duration 104 ms. QT duration is 502 ms. Altheimer is normal. There is artifact. There is no evidence of acute ischemia. We will need to obtain old EKG to compare the lateral leads. The ST changes in the lat) Prior: Unchanged Discharge Plan Triage Chief Complaint: Shortness of Breath ED Provider: Melecio Castellano Dx/Rx/DC Orders Clinical Impression: Acute exacerbation of chronic bronchitis, Essential hypertension, Non-ischemic cardiomyopathy, Chronic HFrEF (heart failure with reduced ejection fraction), Asthma exacerbation in COPD, Hx of pulmonary fibrosis Instructions: ED COPD Flare Prescriptions: New prednisone 20 mg tablet 60 mg PO DAILY Qty: 15 0RF doxycycline monohydrate 100 mg capsule 100 mg PO BID Qty: 14 0RF No Action nitroglycerin 0.4 mg tablet, sublingual 0.4 mg SUBLINGUAL Q5-15M PRN (Reason: CHEST PAIN) mirtazapine 15 mg tablet 15 mg PO QHS albuterol sulfate 0.63 mg/3 mL solution for nebulization 0.63 mg INHALATION TID PRN (Reason: SOB) amlodipine 5 mg tablet 5 mg PO DAILY doxycycline hyclate 100 mg capsule 100 mg PO BID magnesium oxide 400 mg (241.3 mg magnesium) tablet 400 mg PO DAILY furosemide 40 mg tablet 40 mg PO DAILY Hold Instructions: Resume on 12/10/22. Rx Instructions: May take twice daily if needed. fluoxetine 20 mg capsule 20 mg PO BID Label Comments: depression gabapentin 400 mg capsule 400 mg PO TID Label Comments: neuropathy atorvastatin 10 MG tablet 10 mg PO DAILY carvedilol 25 mg tablet 25 mg PO BID potassium chloride 20 mEq tablet,ER particles/crystals 40 meq PO DAILY Qty: 180 3RF isosorbide mononitrate 30 mg tablet extended release 24 hr 30 mg PO DAILY Qty: 90 3RF hydralazine 25 mg tablet 25 mg PO TID Qty: 270 3RF Primary Care Provider: Archie Flores Referrals: Judd Mcgill MD [Med Staff - Active Staff] - 3-5 Days Archie Flores MD [Primary Care Provider] - Activity Restrictions/Additional Instructions: You have to use your maintenance inhalers daily. Take medication prescribed today until gone. Disposition Disposition: Home, Self Care
[2022-11-28] MEDS: Ipratropium/Albuterol Sulfate 3 ML AMPUL.NEB INHALATION (15:56)
[2022-11-28] MEDS: MethylPREDNISolone 125 MG/2 ML Vial IV (15:58)
[2022-11-28] MEDS: Albuterol 2.5 MG/3 ML VIAL.NEB. INHALATION ×2 (15:58→16:52)
[2022-11-28 15:59] VITALS: PULSE 54; RESP 16; O2SAT 95
--- NOTE | 2022-11-28 16:15 | RAD_ITS ---
EXAM: XR CHEST, 2 VIEWS CLINICAL INDICATION: Dyspnea, REY, wheezing, productive cough TECHNIQUE: Frontal and lateral views of the chest. This report was created using [email or web address] report generation technology. COMPARISON: 10/10/2022. FINDINGS: LUNGS AND PLEURAL SPACES: Prominent interstitial markings increased since previous exam. Pulmonary vascular congestion. Small bilateral pleural effusions. No pneumothorax. HEART: Unremarkable. Cardiac silhouette not enlarged. MEDIASTINUM: Central airways and mediastinal contour are unremarkable. BONES/JOINTS: Unremarkable. SOFT TISSUES: Unremarkable. TUBES, LINES AND DEVICES: No change AICD pacemaker. RAD/Chest PA and Lateral IMPRESSION: Pulmonary vascular congestion with increased interstitial prominence that may be due to interstitial edema. Small bilateral effusions. Electronically Signed: Arun Kendrick MD at 16:36 EST ,
[2022-11-28 17:17] LABS: BNP,B-Type NATRIURETIC PEPTIDE 784.6 pg/mL (0-100)
[2022-11-28 17:20] LABS: Troponin-I HS 31 pg/mL (3.0-78.0)
[2022-11-28 18:38] VITALS: BP 159/74; PULSE 56; O2SAT 94
== END 2022-11-28 18:46 | disposition home or self-care (01) ==
PROVIDERS: Emergency Provider Emergency Medicine; PCP Family Medicine; Visit Provider Emergency Medicine
DX: J44.1 Chronic obstructive pulmonary disease with (acute) exacerbation (principal); I42.8 Other cardiomyopathies; I13.0 Hypertensive heart and chronic kidney disease with heart failure and stage 1 through stage 4 chronic kidney disease, or unspecified chronic kidney disease; I50.22 Chronic systolic (congestive) heart failure; J02.9 Acute pharyngitis, unspecified; N18.2 Chronic kidney disease, stage 2 (mild); R68.83 Chills (without fever); E78.00 Pure hypercholesterolemia, unspecified; F17.210 Nicotine dependence, cigarettes, uncomplicated; Z87.01 Personal history of pneumonia (recurrent)
CPT/HCPCS: 71046; 83880; 84484; 87428; 93005; 94640; 99252; 99284; A4216; G0463

== ENCOUNTER → 2022-12-08 | Outpatient (CLI) | payer MEDICARE, SELFPAY | END | disposition home or self-care (01) | LOC: SL 20:21 | PROVIDERS: PCP Family Medicine; Visit Provider Internal Medicine Critical Care Medicine | DX: G47.10 Hypersomnia, unspecified (principal) | CPT/HCPCS: 95810 ==

== ENCOUNTER 2022-12-24 17:38 | Inpatient (IN) | payer MEDICARE, SELFPAY ==
[2022-12-24] VITALS (7 sets, daily range): BP systolic 151–172; BP diastolic 66–85; PULSE 59–92; RESP 13–24; TEMP 36.4–36.9; O2SAT 90–97; BMI 26.6; BMI 25.9
--- NOTE | 2022-12-24 18:22 | EKG12_ITS ---
Test Reason : CP Blood Pressure : / mmHG Vent. Rate : 060 BPM Atrial Rate : 060 BPM P-R Int : 176 ms QRS Dur : 102 ms QT Int : 434 ms P-R-T Axes : 065 009 098 degrees QTc Int : 434 ms Normal sinus rhythm ST & T wave abnormality, consider lateral ischemia Abnormal ECG Confirmed by FARZANA BRAXTON, JUSTIN ([id number]), mapping editor NANI ALFARO ([id number]) on 12/27/2022 1:49:46 PM Referred By: GORDY Confirmed By:JUSTIN YANES MD
--- NOTE | 2022-12-24 18:35 | RAD_ITS ---
STUDY: XR Chest 1 View 12/24/2022 6:48 PM REASON FOR EXAM: Male, 72 years old. CHEST PAIN SOB COMPARISON: 2.5.23 TECHNIQUE: XR Chest 1 View FINDINGS: There is no demonstrated pleural abnormality. There is bilateral infiltrate / atelectasis. There is a left sided pacemaker batterypack. Normal heart size. Normal mediastinum. Normal leanne. Prominent appearing increased interstitial lung markings. Normal visualized pulmonary arteries. There is atherosclerotic calcification of the aortic arch with tortuosity. There are diffuse degenerative changes of the visualized thoracic spine. There is degenerative osteoarthritis of the bilateral shoulders. There is no demonstrated abnormality of the visualized soft tissue structures of the upper abdomen. RAD/Chest 1 View (Portable) IMPRESSION: Bilateral pneumonia. Electronically Signed: Thompson Thacker MD at 19:17 EST ,
[2022-12-24 18:54] LABS: Absolute Lymphocyte Count 0.94 X10^3/uL (0.83-4.51); Absolute Neutrophil Count 3.7 X10^3/uL (2.0-7.7); Basophil# 0.03 X10^3/uL; Basophil% 0.5 % (0-1); Eosinophil# 0.28 X10^3/uL; Hematocrit 37.2 % (40-54); Hemoglobin 11.8 g/dL (13.0-16.5); Lymphocyte # 0.94 X10^3/ul (0.83-4.51); Lymphocyte % 16.9 % (19-41); Mean Corp Hgb Conc 31.7 g/dL (32-36); Mean Corpuscular Hgb 31.6 pg (27.0-32.0); Mean Corpuscular Volume 99.5 fL (80-94); Mean Platelet Vol. 10.5 fl (6.2-12.0); Monocyte# 0.55 X10^3/uL; Monocyte% 9.9 % (0-10); NRBC Flagged by Analyzer 0 % (0-5); Neutrophil # 3.73 X10^3/uL (2.7-7.7); Neutrophil % 67.3 % (47-70); Platelet Count 187 K/mm3 (150-450); RBC Distribution Width CV 16.9 % (11.6-14.6); RBC Distribution Width SD 62.4 fl (35.1-43.9); Red Blood Count 3.74 M/mm3 (4.6-6.2); White Blood Count 5.6 K/mm3 (4.4-11.0)
[2022-12-24 19:12] LABS: Anion Gap 7 (5-15); BUN 25 mg/dL (7-18); BUN/Creat Ratio 13.4 RATIO (10-20); Calcium,Total 9.5 mg/dL (8.5-10.1); Chloride 100 mmol/L (98-107); Creatinine, Serum 1.87 mg/dL (0.70-1.30); EST Glomerular Filtration Rate 38 mL/min (>60); Est Glom Filt Rate - Afr Amer 46 mL/min (>60); Estimated Creatinine Clearance 34.37 ml/min; Glucose 84 mg/dL (74-106); Potassium 3.8 mmol/L (3.5-5.1); Sodium Level 138 mmol/L (136-145); Troponin-I HS 36 pg/mL (3.0-78.0)
[2022-12-24] MEDS: Ipratropium/Albuterol Sulfate 3 ML AMPUL.NEB INHALATION (20:13)
[2022-12-24] MEDS: levoFLOXacin IV 750 MG/150 ML BAG 100 MG IV (20:18)
--- NOTE | 2022-12-24 20:32 | EDS_ITS ---
HPI <MELANIE Hampton - Last Filed: 12/24/22 21:37> History of Present Illness Chief Complaint: Shortness of Breath Narrative Narrative: Patient presents today with shortness of breath at rest that he states he has had since September. He states that in September he presented to the emergency department and was diagnosed with pneumonia and required overnight admission. After that, he states he really did not feel that he got much better. He presented again 3 weeks ago with shortness of breath and a cough but did not have pneumonia at that time and was given doxycycline and prednisone. He states that over the past few days his symptoms have worsened and he has been fatigued and has had chills. 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 She states that he is on Lasix but feels that his feet have been puffy over the last few days. PMH includes stage III COPD, pulmonary fibrosis, hypertension, AAA, CHF with reduced ejection fraction, and CKD. 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) Anxiety Arthritis Back pain Benign paroxysmal positional vertigo Bradycardia Cancer Cardiology follow-up encounter Cephalgia Chest pain Chronic abdominal pain Chronic cough Chronic HFrEF (heart failure with reduced ejection fraction) Chronic renal insufficiency, stage II (mild) CKD (chronic kidney disease) COPD (chronic obstructive pulmonary disease) Depression Depressive disorder Dizziness Easy bruising Essential hypertension Essential hypertension Gastric reflux GERD (gastroesophageal reflux disease) Hiatal hernia High cholesterol History of hiatal hernia History of pain when walking History of stress test History of ulceration Hx of echocardiogram Injury of head and neck Left ventricular apical thrombus Loss of hearing Myocardial infarct, old Non-ischemic cardiomyopathy Overweight (BMI 25.0-29.9) Palpitations Pulmonary fibrosis Shortness of breath on exertion Smoker Stage 2 moderate COPD by GOLD classification Symptomatic bradycardia Syncope Testicular cancer Tobacco abuse Wears dentures Wears glasses Home Medications fluoxetine 20 mg capsule 20 mg PO BID anxiety 04/23/19 [History Last Taken 09/28/22] gabapentin 400 mg capsule 400 mg PO TID pain 04/23/19 [History Last Taken 09/28/22] nitroglycerin 0.4 mg sublingual tablet 0.4 mg sublingual Q5-15M PRN CHEST PAIN 04/23/19 [History Last Taken 04/25/19] atorvastatin 10 mg tablet 10 mg PO DAILY cholesterol 04/27/19 [History Last Taken 09/28/22] mirtazapine 15 mg tablet 15 mg PO QHS 12/03/19 [History Last Taken 09/27/22] albuterol sulfate 0.63 mg/3 mL solution for nebulization 0.63 mg inhalation TID PRN SOB 02/19/20 [History Last Taken 09/28/22] amlodipine 5 mg tablet 5 mg PO DAILY 07/09/20 [History Last Taken 09/28/22] carvedilol 25 mg tablet 25 mg PO BID HEART 09/28/22 [History Last Taken 09/28/22] doxycycline hyclate 100 mg capsule 100 mg PO BID 10/29/22 [History Last Taken Unknown] furosemide 40 mg tablet 40 mg PO DAILY 10/29/22 [History Last Taken Unknown] hydralazine 25 mg tablet 25 mg PO TID #270 tabs 11/02/22 [Rx Last Taken Unknown] isosorbide mononitrate 30 mg tablet,extended release 24 hr 30 mg PO DAILY #90 tabs 11/02/22 [Rx Last Taken Unknown] doxycycline monohydrate 100 mg capsule 100 mg PO BID #14 CAPSULES 11/28/22 [Rx Last Taken Unknown] prednisone 20 mg tablet 60 mg PO DAILY #15 TABLETS 11/28/22 [Rx Last Taken Unknown] magnesium oxide 400 mg (241.3 mg magnesium) tablet 500 mg PO DAILY 12/02/22 [History Last Taken Unknown] potassium chloride 20 mEq tablet,extended release(part/cryst) 20 meq PO BID #180 tabs 12/24/22 [Rx Last Taken Unknown] Allergy/AdvReac Type Severity Reaction Status Date / Time LASHONDA Inhibitors Allergy Severe Angioedema Verified 12/24/22 17:39 lisinopril Allergy Severe Angioedema Verified 12/24/22 17:39 Family History Father Cancer bone AAA (abdominal aortic aneurysm) Grandfather AAA (abdominal aortic aneurysm) Uncle AAA (abdominal aortic aneurysm) Surgical History H/O umbilical hernia repair History of AAA (abdominal aortic aneurysm) repair History of arthroscopic knee surgery History of corneal transplant History of foot surgery History of implantable cardiac defibrillator (ICD) History of knee surgery History of left heart catheterization (02/08/20) History of orchiectomy History of surgery on left wrist History of tonsillectomy Implantable cardioverter-defibrillator (ICD) in situ (08/21/20) Trigeminal neuralgia Social History (Updated 11/28/22 @ 15:[address] Melecio Castellano MD) household members: spouse Smoking Status: Current every day smoker tobacco type: cigarettes and cigars per week: 14 Tobacco: How many years used: 50 alcohol intake: never substance use type: does not use caffeine: Yes Type: coffee Number of servings: 5 ROS <MELANIE Hampton - Last Filed: 12/24/22 21:37> ROS ED Constitutional Constitutional ED: Denies chills, fever(s) or sweats Eyes Eyes: Denies blurry vision or diplopia Cardiovascular Cardiovascular: Denies chest pain or palpitations Respiratory/Chest Respiratory/Chest: Denies cough, dyspnea, tachypnea or wheezing Gastrointestinal Gastrointestinal: Denies abdominal pain, constipation, diarrhea, nausea or vomiting Genitourinary Genitourinary ED: Denies dysuria, hematuria or urinary urgency Musculoskeletal Musculoskeletal: Denies arthralgias, back pain, myalgias or neck pain Integumentary Denies abscess, Abrasions or rash Neurologic Neurologic: Denies confusion, dizziness or paresthesias Psychiatric Psychiatric: Denies anxiety, depression, suicidal ideation or suicidal thoughts Allergic/Immunologic Allergic/Immunologic ED: Denies lip swelling, mouth swelling or urticaria EXAM <MELANIE Hampton - Last Filed: 12/24/22 21:37> Physical Exam Const Vital Signs: 12/24/22 17:39 12/24/22 20:03 12/24/22 20:03 Temperature 97.7 F L Temperature Source Temporal Pulse Rate 61 60 Respiratory Rate 24 H 19 H 13 Respiratory Effort Respiratory Depth Respiratory Pattern Blood Pressure 155/77 H 172/76 H Blood Pressure Mean 103 108 Pulse Ox 95 93 90 Oxygen Delivery Method Room Air Room Air Room Air Oxygen Flow Rate (L/min) 12/24/22 20:03 12/24/22 20:05 12/24/22 20:12 Temperature 97.6 F L Temperature Source Temporal Pulse Rate 92 Respiratory Rate 15 Respiratory Effort Short of Breath Respiratory Depth Normal Respiratory Pattern Normal Blood Pressure 151/85 H Blood Pressure Mean 107 Pulse Ox 92 Oxygen Delivery Method Room Air Room Air Room Air Oxygen Flow Rate (L/min) 12/24/22 20:13 12/24/22 20:13 12/24/22 21:34 Temperature Temperature Source Pulse Rate 61 62 Respiratory Rate 18 20 H 22 H Respiratory Effort Normal Non-Labored Short of Breath Respiratory Depth Normal Respiratory Pattern Normal Normal Blood Pressure 158/66 H Blood Pressure Mean 96 Pulse Ox 93 95 Oxygen Delivery Method Room Air Nasal Cannula Oxygen Flow Rate (L/min) 2 <Dr. Martinez Connelly DO - Last Filed: 12/24/22 22:45> Physical Exam Const Vital Signs: 12/24/22 17:39 12/24/22 20:03 12/24/22 20:03 Temperature 97.7 F L Temperature Source Temporal Pulse Rate 61 60 Respiratory Rate 24 H 19 H 13 Respiratory Effort Respiratory Depth Respiratory Pattern Blood Pressure 155/77 H 172/76 H Blood Pressure Mean 103 108 Pulse Ox 95 93 90 Oxygen Delivery Method Room Air Room Air Room Air Oxygen Flow Rate (L/min) 12/24/22 20:03 12/24/22 20:05 12/24/22 20:12 Temperature 97.6 F L Temperature Source Temporal Pulse Rate 92 Respiratory Rate 15 Respiratory Effort Short of Breath Respiratory Depth Normal Respiratory Pattern Normal Blood Pressure 151/85 H Blood Pressure Mean 107 Pulse Ox 92 Oxygen Delivery Method Room Air Room Air Room Air Oxygen Flow Rate (L/min) 12/24/22 20:13 12/24/22 20:13 12/24/22 21:34 Temperature Temperature Source Pulse Rate 61 62 Respiratory Rate 18 20 H 22 H Respiratory Effort Normal Non-Labored Short of Breath Respiratory Depth Normal Respiratory Pattern Normal Normal Blood Pressure 158/66 H Blood Pressure Mean 96 Pulse Ox 93 95 Oxygen Delivery Method Room Air Nasal Cannula Oxygen Flow Rate (L/min) 2 MDM <MELANIE Hampton - Last Filed: 12/24/22 21:37> MDM MDM Narrative Medical decision making narrative: Patient presenting with shortness of breath that he has had since September. He was seen here in the emergency department in September and was to the hospital and treated for pneumonia. He states he really did not get much better after that incident and presented again 3 weeks ago with shortness of breath. No infiltrates were seen on chest x-ray at that time but he was treated for a COPD exacerbation with doxycycline and prednisone. Now, he states he has been having chills and is more short of breath than before. He does not use oxygen at home and is currently 93% on room air. Patient was ambulated and dropped to 88% on room air and then 77% with good waveform on room air by the time the nurse got him to his bed. Patient is now on 2 L nasal cannula is at 95% O2 saturation. He is complaining of swelling in his feet bilaterally which she states is new. He does take Lasix daily. He does have 1+ pitting edema in his right foot. Chest x-ray shows bilateral pneumonia. He has been treated with Levaquin. CBC shows no leukocytosis but does show anemia, BMP shows a BUN of 25 and a creatinine of 1.7, GFR 38. Troponin WNL. BNP 628.9. Patient will be discussed with the hospitalist for admission. Lab Data Attestation: I reviewed the patient's lab results. Labs: Laboratory Results - last 24 hr 12/24/22 12/24/22 12/24/22 18:25 18:25 18:25 WBC 5.6 RBC 3.74 L Hgb 11.8 L Hct 37.2 L MCV 99.5 H MCH 31.6 MCHC 31.7 L RDW Std Deviation 62.4 H RDW Coeff of Karen 16.9 H Plt Count 187 MPV 10.5 Immature Gran % (Auto) 0.400 Neut % (Auto) 67.3 Lymph % (Auto) 16.9 L Lynn % (Auto) 9.9 Eos % (Auto) 5.0 Baso % (Auto) 0.5 Absolute Neuts (auto) 3.7 Absolute Lymphs (auto) 0.94 Nucleated RBC % 0 Sodium 138 Potassium 3.8 Chloride 100 Carbon Dioxide 31.0 Anion Gap 7 BUN 25 H Creatinine 1.87 H Estim Creat Clear Calc 34.37 Est GFR (MDRD) Af Amer 46 L Est GFR (MDRD) Non-Af 38 L BUN/Creatinine Ratio 13.4 Glucose 84 Calcium 9.5 Troponin I High Sens 36 B-Natriuretic Peptide 628.9 H Radiography Diagnostic Testing: Clinical Impression(s) from Imaging Studies Chest X-Ray 12/24/22 18:35 IMPRESSION: Bilateral pneumonia. Electronically Signed: Thompson Thacker MD at 19:17 EST , EKG Initial EKG: Comments: 60 bpm, normal sinus rhythm, no ST elevation, reviewed and interpreted by attending ED physician <Dr. Martinez Connelly, DO - Last Filed: 12/24/22 22:45> [facility] Lab Data Labs: Laboratory Results - last 24 hr 12/24/22 12/24/22 12/24/22 18:25 18:25 18:25 WBC 5.6 RBC 3.74 L Hgb 11.8 L Hct 37.2 L MCV 99.5 H MCH 31.6 MCHC 31.7 L RDW Std Deviation 62.4 H RDW Coeff of Karen 16.9 H Plt Count 187 MPV 10.5 Immature Gran % (Auto) 0.400 Neut % (Auto) 67.3 Lymph % (Auto) 16.9 L Lynn % (Auto) 9.9 Eos % (Auto) 5.0 Baso % (Auto) 0.5 Absolute Neuts (auto) 3.7 Absolute Lymphs (auto) 0.94 Nucleated RBC % 0 Sodium 138 Potassium 3.8 Chloride 100 Carbon Dioxide 31.0 Anion Gap 7 BUN 25 H Creatinine 1.87 H Estim Creat Clear Calc 34.37 Est GFR (MDRD) Af Amer 46 L Est GFR (MDRD) Non-Af 38 L BUN/Creatinine Ratio 13.4 Glucose 84 Calcium 9.5 Troponin I High Sens 36 B-Natriuretic Peptide 628.9 H Radiography Diagnostic Testing: Clinical Impression(s) from Imaging Studies Chest X-Ray 12/24/22 18:35 IMPRESSION: Bilateral pneumonia. Electronically Signed: Thompson Thacker MD at 19:17 EST , Treatment and Re-Evaluation :: I have personally performed a face to face assessment of the patient and have reviewed the JUDD Note. I performed a substantive portion of the visit including all aspects of the following. My rader findings include: History: Patient presents with cough and congestion that has been getting worse over the past few days. Patient states he is coughing up some milky white sputum. Patient states his breathing is worse with walking anywhere. Patient d enies any fevers or chills. Patient states he has a history of prior pneumonias and this feels similar to that. Patient is not on home oxygen. Exam: Vital signs showed a mild tachypnea of 24 and mildly elevated blood pressure 155/77. Patient is afebrile here. Oral mucosa is pink and moist. Neck is supple. Trachea is midline. No JVD. Heart was regular rate and rhyth m. Lungs showed mild expiratory wheezes bilaterally. There is good respiratory effort noted. Abdomen is soft. Bowel sounds are normal. There is no tenderness. Cranial nerves II through XII are intact. There are no focal motor or sensory deficits noted. Medical Decision Making: Differential diagnosis includes pneumonia, congestive heart failure, COPD, viral infection. CBC will be obtained to assess for leukocytosis and anemia. Basic metabolic profile will be obtained to assess for electrolyte abnormality and renal function. Chest x-ray will be obtained to assess for pneumonia and congestive heart failure. EKG will be obtained to assess for cardiac dysrhythmia and cardiac ischemia. BNP will be obtained to assess for congestive heart failure. High-sensitivity troponin will be obtained to assess for cardiac ischemia. COVID-19 rapid antigen will be obtained to assess for COVID infection. Influenza A and influenza B antigens will be obtained to assess for influenza infection. Portable chest x-ray was obtained. There is 1 view. On my interpretation, there are bilateral infiltrates. There are chronic changes noted. Bony thorax is normal. There is no cardiomegaly noted. Radiologist also interpreted the x- rays and agrees. EKG was reviewed. On my interpretation, there is normal sinus rhythm with a rate of 60. There are no acute ST or T wave changes. RI interval, QRS interval, and QTc intervals are within normal limits. Greig is normal. CBC was reviewed and shows a mild anemia with a hemoglobin of 11.8 and hematocrit 37.2. Basic metabolic profile was reviewed and showed a mildly elevated creatinine of 1.87 and BUN of 25. These are consistent with prior results. High-sensitivity troponin was normal at 36. BNP was 628.9. These are also consistent with prior results. Patient was ambulated on room air since he does not have home oxygen. Patient dropped his saturation into the 80s with ambulation and then dropped into the 70s before he was able to get back to his bed and be started back on oxygen. Because of this, case was discussed with the hospitalist. He will admit the patient to the hospital. Patient was started on Levaquin. Patient and family understood and were agreeable with the plan. All questions were answered. Discharge Plan Triage Chief Complaint: Shortness of Breath ED Midlevel Provider: Tiffanie Ngo ED Provider: Martinez Connelly Dx/Rx/DC Orders Clinical Impression: CKD (chronic kidney disease), Stage 3 severe COPD by GOLD classification, Chronic HFrEF (heart failure with reduced ejection fraction), Pneumonia, Hypoxia, SOB (shortness of breath) Prescriptions: No Action nitroglycerin 0.4 mg tablet, sublingual 0.4 mg SUBLINGUAL Q5-15M PRN (Reason: CHEST PAIN) mirtazapine 15 mg tablet 15 mg PO QHS albuterol sulfate 0.63 mg/3 mL solution for nebulization 0.63 mg INHALATION TID PRN (Reason: SOB) amlodipine 5 mg tablet 5 mg PO DAILY doxycycline hyclate 100 mg capsule 100 mg PO BID furosemide 40 mg tablet 40 mg PO DAILY Hold Instructions: Resume on 10/02/22. Rx Instructions: May take twice daily if needed. magnesium oxide 400 mg (241.3 mg magnesium) tablet 500 mg PO DAILY fluoxetine 20 mg capsule 20 mg PO BID Label Comments: depression gabapentin 400 mg capsule 400 mg PO TID Label Comments: neuropathy atorvastatin 10 MG tablet 10 mg PO DAILY carvedilol 25 mg tablet 25 mg PO BID prednisone 20 mg tablet 60 mg PO DAILY Qty: 15 0RF doxycycline monohydrate 100 mg capsule 100 mg PO BID Qty: 14 0RF isosorbide mononitrate 30 mg tablet extended release 24 hr 30 mg PO DAILY Qty: 90 3RF hydralazine 25 mg tablet 25 mg PO TID Qty: 270 3RF potassium chloride 20 mEq tablet,ER particles/crystals 20 meq PO BID Qty: 180 3RF Primary Care Provider: Archie Flores Referrals: Archie Flores MD [Primary Care Provider] - Disposition Disposition: Acute Care Hospital [facility]
[2022-12-24 20:40] LABS: BNP,B-Type NATRIURETIC PEPTIDE 628.9 pg/mL (0-100)
--- NOTE | 2022-12-24 20:57 | ED.RN ---
Pt placed back into bed after ambulating with pulse ox. Pt dropped to 77% on RA while sitting in the bed. Placed on 4L NC and brought up to 97%. Resting comfortably on 2L NC. PA notified.
--- NOTE | 2022-12-24 22:47 | HP.PCM.HOS_ITS ---
[facility] - General General Date of Admission: 12/24/22 Date of Service: 12/24/22 Chief Complaint: Shortness of breath HPI Narrative INNA AHMADI, is a 72 M with a significant history of COPD; shortness of breath and heart failure who presents to the emergency department with progressively worsening shortness of breath that started a day before presentation. At baseline patient has shortness of breath. However a day before presentation he shortness of breath worsened. Patient works about 4 to 5 hours each day; and after each day patient is very fatigued and feels short of breath. He reports a productive cough of thick milky sputum. He denies fever. He reports chills. He reports weight gain of about 8 pounds in 2 days. He feels like his bilateral feet are swollen. Of note since September of last year patient have had pneumoni a for about 4 times. At the emergency department with ambulation his oxygen saturation was in the 80s to 70s. Of note patient is set up to have an appointment on January 01, 2023 for possible nighttime oxygen use. 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) Anxiety Arthritis Back pain Benign paroxysmal positional vertigo Bradycardia Cancer Cardiology follow-up encounter Cephalgia Chest pain Chronic abdominal pain Chronic cough Chronic HFrEF (heart failure with reduced ejection fraction) Chronic renal insufficiency, stage II (mild) CKD (chronic kidney disease) COPD (chronic obstructive pulmonary disease) Depression Depressive disorder Dizziness Easy bruising Essential hypertension Essential hypertension Gastric reflux GERD (gastroesophageal reflux disease) Hiatal hernia High cholesterol History of hiatal hernia History of pain when walking History of stress test History of ulceration Hx of echocardiogram Injury of head and neck Left ventricular apical thrombus Loss of hearing Myocardial infarct, old Non-ischemic cardiomyopathy Overweight (BMI 25.0-29.9) Palpitations Pulmonary fibrosis Shortness of breath on exertion Smoker Stage 2 moderate COPD by GOLD classification Symptomatic bradycardia Syncope Testicular cancer Tobacco abuse Wears dentures Wears glasses Home Medications gabapentin 400 mg capsule 400 mg PO BID pain 04/23/19 [History Last Taken 09/28/22] nitroglycerin 0.4 mg sublingual tablet 0.4 mg sublingual Q5-15M PRN CHEST PAIN 04/23/19 [History Last Taken 04/25/19] atorvastatin 10 mg tablet 10 mg PO DAILY cholesterol 04/27/19 [History Last Taken 09/28/22] mirtazapine 15 mg tablet 15 mg PO QHS Depression 12/03/19 [History Last Taken 09/27/22] albuterol sulfate 0.63 mg/3 mL solution for nebulization 0.63 mg inhalation TID PRN SOB 02/19/20 [History Last Taken 09/28/22] amlodipine 5 mg tablet 5 mg PO DAILY BP 07/09/20 [History Last Taken 09/28/22] carvedilol 25 mg tablet 25 mg PO BID HEART 09/28/22 [History Last Taken 09/28/22] furosemide 40 mg tablet 40 mg PO DAILY Water Pill 10/29/22 [History Last Taken Unknown] magnesium oxide 400 mg (241.3 mg magnesium) tablet 500 mg PO DAILY Supplimentation 12/02/22 [History Last Taken Unknown] hydralazine 25 mg tablet 25 mg PO DAILY BP 12/24/22 [History Last Taken Unknown] isosorbide mononitrate 30 mg tablet,extended release 24 hr 30 mg PO DAILY SOB 12/24/22 [History Last Taken Unknown] potassium chloride 20 mEq tablet,extended release(part/cryst) 20 meq PO BID Supplimentation 12/24/22 [History Last Taken Unknown] Allergy/AdvReac Type Severity Reaction Status Date / Time LASHONDA Inhibitors Allergy Severe Angioedema Verified 12/24/22 17:39 lisinopril Allergy Severe Angioedema Verified 12/24/22 17:39 Family History Father Cancer bone AAA (abdominal aortic aneurysm) Grandfather AAA (abdominal aortic aneurysm) Uncle AAA (abdominal aortic aneurysm) Surgical History H/O umbilical hernia repair History of AAA (abdominal aortic aneurysm) repair History of arthroscopic knee surgery History of corneal transplant History of foot surgery History of implantable cardiac defibrillator (ICD) History of knee surgery History of left heart catheterization (02/08/20) History of orchiectomy History of surgery on left wrist History of tonsillectomy Implantable cardioverter-defibrillator (ICD) in situ (08/21/20) Trigeminal neuralgia Social History household members: spouse Smoking Status: Current every day smoker tobacco type: cigarettes and cigars per week: 14 Tobacco: How many years used: 50 alcohol intake: never substance use type: does not use caffeine: Yes Type: coffee Number of servings: 5 ROS ROS Narrative Pertinent positives and pertinent negatives as noted in HPI. All other systems were reviewed and are negative Vital Signs Vital Signs Vital Signs: 12/24/22 17:39 12/24/22 20:03 12/24/22 20:03 Temperature 97.7 F L Temperature Source Temporal Pulse Rate 61 60 Respiratory Rate 24 H 19 H 13 Respiratory Effort Respiratory Depth Respiratory Pattern Blood Pressure 155/77 H 172/76 H Blood Pressure Mean 103 108 Pulse Ox 95 93 90 Oxygen Delivery Method Room Air Room Air Room Air Oxygen Flow Rate (L/min) 12/24/22 20:03 12/24/22 20:05 12/24/22 20:12 Temperature 97.6 F L Temperature Source Temporal Pulse Rate 92 Respiratory Rate 15 Respiratory Effort Short of Breath Respiratory Depth Normal Respiratory Pattern Normal Blood Pressure 151/85 H Blood Pressure Mean 107 Pulse Ox 92 Oxygen Delivery Method Room Air Room Air Room Air Oxygen Flow Rate (L/min) 12/24/22 20:13 12/24/22 20:13 12/24/22 21:34 Temperature Temperature Source Pulse Rate 61 62 Respiratory Rate 18 20 H 22 H Respiratory Effort Normal Non-Labored Short of Breath Respiratory Depth Normal Respiratory Pattern Normal Normal Blood Pressure 158/66 H Blood Pressure Mean 96 Pulse Ox 93 95 Oxygen Delivery Method Room Air Nasal Cannula Oxygen Flow Rate (L/min) 2 Weight Weight: 77.02 kg Body Mass Index (BMI) 26.6 Physical Exam Narrative Physical exam: General: Well-nourished, well-developed. Head: Normocephalic, atraumatic, no tenderness Eyes: Vision is grossly intact. EOMI ENT, no trauma, moist mucous membranes, no rhinorrhea Neck: Nontender, No thyromegaly. CVS: Regular rate and rhythm. S1-S2 present. No murmur, gallop or rub. Respiratory : Diminished, chest wall nontender, no wheezing Abdomen: Soft, nontender, nondistended, normal bowel sounds, no masses : Deferred Back: Nontender, no CVA tenderness, no midline spinal tenderness, deformities, step-offs Extremities: Nontender full range of motion, no trauma Skin: Normal color, no trauma, abrasions Neuro: Alert, oriented, cranial nerves II through XII grossly intact. Psychiatry: Normal mood. Normal affect. Not depressed. Not anxious. Results Lab / Micro Data Result Diagrams: 12/24/22 18:25 12/24/22 18:25 Labs: Laboratory Results - last 24 hr 12/24/22 18:25: WBC 5.6, RBC 3.74 L, Hgb 11.8 L, Hct 37.2 L, MCV 99.5 H, MCH 31.6, MCHC 31.7 L, RDW Std Deviation 62.4 H, RDW Coeff of Karen 16.9 H, Plt Count 187, MPV 10.5, Immature Gran % (Auto) 0.400, Neut % (Auto) 67.3, Lymph % (Auto) 16.9 L, Borden % (Auto) 9.9, Eos % (Auto) 5.0, Baso % (Auto) 0.5, Absolute Neuts (auto) 3.7, Absolute Lymphs (auto) 0.94, Nucleated RBC % 0 12/24/22 18:25: Sodium 138, Potassium 3.8, Chloride 100, Carbon Dioxide 31.0, Anion Gap 7, BUN 25 H, Creatinine 1.87 H, Estim Creat Clear Calc 34.37, Est GFR (MDRD) Af Amer 46 L, Est GFR (MDRD) Non-Af 38 L, BUN/Creatinine Ratio 13.4, Glucose 84, Calcium 9.5, Troponin I High Sens 36 12/24/22 18:25: B-Natriuretic Peptide 628.9 H Micro: Microbiology 12/24/22 19:45 Nasal Secretion SARS-CoV-2 Antigen (Rapid) - Final Radiology Impression Chest X-Ray 12/24/22 18:35 IMPRESSION: Bilateral pneumonia. Electronically Signed: Thompson Thacker MD at 19:17 EST , Assessment & Plan Assessment/Plan (1) Hypoxia: (2) Essential hypertension: PLAN: Plan Hypoxia Deferential diagnosis includes pneumonia, gram-positive or gram-negative; worsening of diastolic congestive heart failure/improved reduced ejection f raction; flare of pulmonary fibrosis. Impression chest x-ray by radiology: Bilateral pneumonia. Actual chest x-ray image independent interpreted. Chest x-ray showed bilateral opacities. Previous chest x-ray as well as also reviewed. At baseline chest x-ray has some bilateral opacities. Current chest xray appears worse than before. Last echocardiogram on file was on 11/11/2022: Estimated ejection fraction was 50%. There was stage II diastolic function. Echocardiogram on 02/07/2020 showed EF of 35% and stage I diastolic dysfunction. BNP on presentation was 628.9 which although is high; is the lowest among previous BNPs. Reportedly patient left kidney is atretic. And his right kidney reportedly has veins that need stented. A careful course of Lasix. Lasix 20 mg IV twice daily ordered. Supplement potassium. Of note at home patient is on Lasix p.o. Levaquin ordered emergency department. Levaquin continued, adjusted to creatinine clearance. Ceftriaxone ordered. We get strep pneumonia urine antigen and Legionella urine antigen. Sputum culture ordered. Titrate oxygen oxygen as necessary. White count is unremarkable. Trend CBC Hypertension Blood pressure is not within goal Home blood pressure medication continued. As needed hydralazine ordered. Trend blood pressure and adjust blood pressure medications. DVT prophylaxis Subcutaneous Lovenox ordered. Charges/Coding Visit Charges Inpatient E&M: 32868 In Hosp L3
[2022-12-25] VITALS (13 sets, daily range): BP systolic 151–173; BP diastolic 59–89; PULSE 57–64; RESP 16–18; TEMP 36.7–36.9; O2SAT 89–99; BMI 25.9
--- NOTE | 2022-12-25 00:31 | NURSING ---
pt goes down to 90% on RA, 2L applied at this time, satting 98-99%.
[2022-12-25] MEDS: Furosemide 20 MG/2 ML VIAL IV ×3 (00:51→17:47)
[2022-12-25] MEDS: 0.9% Saline Lock 10 ML Syringe IV ×3 (00:52→23:34)
[2022-12-25] MEDS: Albuterol 2.5 MG/3 ML VIAL.NEB. INHALATION (01:52)
[2022-12-25] MEDS: Potassium Chloride Oral Tablet 20 MEQ PO (07:39)
[2022-12-25] MEDS: Enoxaparin 40 MG/0.4 ML Syringe SC (07:40)
[2022-12-25 07:46] LABS: Absolute Lymphocyte Count 1.18 X10^3/uL (0.83-4.51); Absolute Neutrophil Count 3.2 X10^3/uL (2.0-7.7); Basophil# 0.03 X10^3/uL; Basophil% 0.6 % (0-1); Eosinophil# 0.25 X10^3/uL; Eosinophils% 4.8 % (0-5); Hematocrit 32.8 % (40-54); Hemoglobin 10.4 g/dL (13.0-16.5); Lymphocyte # 1.18 X10^3/ul (0.83-4.51); Lymphocyte % 22.6 % (19-41); Mean Corp Hgb Conc 31.7 g/dL (32-36); Mean Corpuscular Hgb 31.2 pg (27.0-32.0); Mean Corpuscular Volume 98.5 fL (80-94); Mean Platelet Vol. 11.1 fl (6.2-12.0); Monocyte# 0.54 X10^3/uL; Monocyte% 10.3 % (0-10); NRBC Flagged by Analyzer 0 % (0-5); Neutrophil # 3.21 X10^3/uL (2.7-7.7); Neutrophil % 61.3 % (47-70); Platelet Count 170 K/mm3 (150-450); RBC Distribution Width CV 16.4 % (11.6-14.6); RBC Distribution Width SD 59.7 fl (35.1-43.9); Red Blood Count 3.33 M/mm3 (4.6-6.2); White Blood Count 5.2 K/mm3 (4.4-11.0)
[2022-12-25] MEDS: predniSONE 20 MG Tablet 40 MG PO (08:10)
[2022-12-25 08:54] LABS: Anion Gap 8 (5-15); BUN 20 mg/dL (7-18); BUN/Creat Ratio 11.2 RATIO (10-20); Calcium,Total 8.6 mg/dL (8.5-10.1); Chloride 101 mmol/L (98-107); Creatinine, Serum 1.78 mg/dL (0.70-1.30); EST Glomerular Filtration Rate 40 mL/min (>60); Est Glom Filt Rate - Afr Amer 49 mL/min (>60); Glucose 109 mg/dL (74-106); Potassium 3.3 mmol/L (3.5-5.1); Sodium Level 138 mmol/L (136-145)
--- NOTE | 2022-12-25 10:43 | PN.HOSP_ITS ---
Subjective Subjective Feels better than when he came in Objective Data Objective Data Vital Signs: Vital Signs Temp Pulse Resp BP Pulse Ox O2 Del Method O2 Flow Rate 98.2 F 59 L 16 155/73 H 93 Nasal Cannula 1 12/25/22 07:37 12/25/22 07:37 12/25/22 07:37 12/25/22 07:37 12/25/22 08:31 12/25/22 08:31 12/25/22 08:31 Oxygen Flow Rate (L/min) 1 Oxygen Delivery Method Nasal Cannula Weight: 165 lb 5.547 oz Body Mass Index (BMI) 25.9 Intake & Output: Intake and Output for Last 24 Hours 12/24/22 12/25/22 12/26/22 03:59 03:59 03:59 Intake Total 150 / 150 Balance 150 / 150 Lab / Micro Data Result Diagrams: 12/25/22 06:40 12/25/22 06:40 Labs: Laboratory Results - last 24 hr 12/24/22 18:25: WBC 5.6, RBC 3.74 L, Hgb 11.8 L, Hct 37.2 L, MCV 99.5 H, MCH 31.6, MCHC 31.7 L, RDW Std Deviation 62.4 H, RDW Coeff of Karen 16.9 H, Plt Count 187, MPV 10.5, Immature Gran % (Auto) 0.400, Neut % (Auto) 67.3, Lymph % (Auto) 16.9 L, Parmer % (Auto) 9.9, Eos % (Auto) 5.0, Baso % (Auto) 0.5, Absolute Neuts (auto) 3.7, Absolute Lymphs (auto) 0.94, Nucleated RBC % 0 12/24/22 18:25: Sodium 138, Potassium 3.8, Chloride 100, Carbon Dioxide 31.0, Anion Gap 7, BUN 25 H, Creatinine 1.87 H, Estim Creat Clear Calc 34.37, Est GFR (MDRD) Af Amer 46 L, Est GFR (MDRD) Non-Af 38 L, BUN/Creatinine Ratio 13.4, Glucose 84, Calcium 9.5, Troponin I High Sens 36 12/24/22 18:25: B-Natriuretic Peptide 628.9 H 12/25/22 06:40: WBC 5.2, RBC 3.33 L, Hgb 10.4 L, Hct 32.8 L, MCV 98.5 H, MCH 31.2, MCHC 31.7 L, RDW Std Deviation 59.7 H, RDW Coeff of Karen 16.4 H, Plt Count 170, MPV 11.1, Immature Gran % (Auto) 0.400, Neut % (Auto) 61.3, Lymph % (Auto) 22.6, Parmer % (Auto) 10.3 H, Eos % (Auto) 4.8, Baso % (Auto) 0.6, Absolute Neuts (auto) 3.2, Absolute Lymphs (auto) 1.18, Nucleated RBC % 0 12/25/22 06:40: Sodium 138, Potassium 3.3 L, Chloride 101, Carbon Dioxide 29.0, Anion Gap 8, BUN 20 H, Creatinine 1.78 H, Estim Creat Clear Calc 36.10, Est GFR (MDRD) Af Amer 49 L, Est GFR (MDRD) Non-Af 40 L, BUN/Creatinine Ratio 11.2, Glucose 109 H, Calcium 8.6 Micro: Microbiology 12/25/22 00:11 Sputum, Expectorated/Coughed Gram Stain - Preliminary 12/25/22 00:11 Urine, Clean Catch Streptococcus pneumoniae Antigen (M - Final 12/25/22 00:11 Urine, Clean Catch Legionella Antigen - Final 12/24/22 23:18 Mucosa - Nasopharyngeal Influenza Types A,B Direct FA (NYASIA) - Final 12/24/22 19:45 Nasal Secretion SARS-CoV-2 Antigen (Rapid) - Final Radiography Diagnostic Testing: Radiology Impression Chest X-Ray 12/24/22 18:35 IMPRESSION: Bilateral pneumonia. Electronically Signed: Thompson Thacker MD at 19:17 EST Reading Location ID and State: [facility] / [place] , Service support , Physical Exam Narrative General: Alert, Oriented x3, Cooperative, No apparent distress HEENT: Atraumatic, PERRLA, EOMI, Normocephalic Oral: Moist Mucosa Neck: Supple, No JVD Lungs: Diminished, Normal air movement, No rhonchi, wheeze, No rales Cardiovascular: Regular rate, Regular Rhythm, Normal S1, Normal S2, No murmurs Abdomen: Soft, Non Tender, Non-Distended, No Hepato-splenomegaly Extremities: No edema, Capillary Refill Less than 3 Seconds Skin: No rashes, No breakdown Musculoskeletal: No Tenderness to Palpation of Joints or Extremities Neurological: Cranial nerves II-XII grossly intact, Motor Exam 5/5 strength throughout, Sensory exam intact to light touch and pain Psych/Mental Status: Normal Affect, Appropriate Assessment & Plan Assessment/Plan (1) Hypoxia: (2) Essential hypertension: PLAN: Plan 1. Acute hypoxia secondary to COPD exacerbation with possible pneumonia ? Sputum cultures pending ? Strep antigen and Legionella antigen are negative ? COVID and flu are also negative ? We will discontinue Rocephin and continue with just Levaquin ? Given his wheezing on exam and his history of COPD will add him on oral s teroids ? We will obtain an ambulatory pulse ox ? Given his history of heart failure also continue with IV Lasix 2. Chronic systolic and diastolic CHF/HTN/HLD ? Blood pressures are stable ? Continue with IV Lasix ? Continue with his other home medications 3. CKD 3a with renal artery stenosis ? Renal function is close to baseline we will continue to monitor DVT: Lovenox Charges/Coding Visit Charges Inpatient E&M: 32398 Subs Hosp L2
--- NOTE | 2022-12-25 14:00 | CASEMGMT ---
CHRIST WALKER Assessment: Face to Face with pt for initial transition planning/care coordination assessment. CHRIST WALKER introduced self and role at [facility], pt voices understanding and consents to assessment. Pt is A/O x4 and answers all questions appropriately at this time. Pt lying in bed in no distress on RA. Care providers, pharmacy, and demographics verified/updated. Admitting Dx: hypoxia PCP:Sandra Specialists:Jay cardio Kyle Pharmacy: [facility] Insurance: [employer] [facility] Prescription Benefit: yes LNOK: Rosalind Wolfe, ; Flor Herring, stepdtr Living Arrangements: Pt lives with and grandson in a single story home with 3 steps to enter without a rail. Pt reports he is I in ADL's and denies concerns at home. Transportation: Pt drives self and denies concerns with transportation. DME/HHC/SNF: Pt has a pox at home, no other DME. Pt has had HHC in the past but is unsure of which agency it was from, denies SNF stays. Pt states no concerns with going home at time of dc. Discussed should pt need oxygen upon dc the homegoing process for this. Provided pt with a verbal local DME list, pt chose [employer]. Green sheet on chart for oxygen. Pt states no further concerns/needs. CM to follow. Advised pt to ask CM if any further question/concerns/needs arise, voices understanding. Pt Goal:Home Plan:Home, follow for oxygen.
[2022-12-25] MEDS: levoFLOXacin IV 250 MG/50 ML BAG 50 MG IV (20:45)
[2022-12-25] MEDS: MELATONIN 3 MG TABLET PO (23:08)
[2022-12-25] MEDS: LORazepam 2 MG/ML Syringe 1 MG IV (23:34)
--- NOTE | 2022-12-25 23:59 | NURSING ---
pt refusing oxygen at this time stating its choking me. this rn educated on importance of wearing it, pts pulse ox 89%, pt still refuses.
[2022-12-26] VITALS (7 sets, daily range): BP systolic 154–167; BP diastolic 62–79; PULSE 52–63; RESP 16–18; TEMP 36.7–36.8; O2SAT 92–98; BMI 25.2
[2022-12-26 07:10] LABS: Absolute Neutrophil Count 5.1 X10^3/uL (2.0-7.7); Basophil# 0.01 X10^3/uL; Basophil% 0.1 % (0-1); Eosinophil# 0.07 X10^3/uL; Hematocrit 34.7 % (40-54); Hemoglobin 11.6 g/dL (13.0-16.5); Lymphocyte % 16.9 % (19-41); Mean Corp Hgb Conc 33.4 g/dL (32-36); Mean Corpuscular Hgb 32.1 pg (27.0-32.0); Mean Corpuscular Volume 96.1 fL (80-94); Mean Platelet Vol. 10.5 fl (6.2-12.0); Monocyte# 0.66 X10^3/uL; Monocyte% 9.3 % (0-10); NRBC Flagged by Analyzer 0 % (0-5); Neutrophil # 5.11 X10^3/uL (2.7-7.7); Neutrophil % 72.3 % (47-70); Platelet Count 175 K/mm3 (150-450); RBC Distribution Width CV 15.9 % (11.6-14.6); Red Blood Count 3.61 M/mm3 (4.6-6.2); White Blood Count 7.1 K/mm3 (4.4-11.0)
[2022-12-26 07:46] LABS: Anion Gap 8 (5-15); BUN 22 mg/dL (7-18); BUN/Creat Ratio 13.7 RATIO (10-20); Calcium,Total 9.1 mg/dL (8.5-10.1); Chloride 101 mmol/L (98-107); Creatinine, Serum 1.61 mg/dL (0.70-1.30); EST Glomerular Filtration Rate 45 mL/min (>60); Est Glom Filt Rate - Afr Amer 55 mL/min (>60); Estimated Creatinine Clearance 39.92 ml/min; Glucose 121 mg/dL (74-106); Potassium 3.3 mmol/L (3.5-5.1); Sodium Level 137 mmol/L (136-145)
[2022-12-26] MEDS: Potassium Chloride Oral Tablet 20 MEQ PO (09:18)
[2022-12-26] MEDS: Furosemide 20 MG/2 ML VIAL IV (09:19)
[2022-12-26] MEDS: 0.9% Saline Lock 10 ML Syringe IV (09:19)
[2022-12-26] MEDS: predniSONE 20 MG Tablet 40 MG PO (09:19)
[2022-12-26 09:41] LABS: Magnesium 2.2 mg/dL (1.6-2.6); Phosphorus 3.7 mg/dL (2.5-4.9)
--- NOTE | 2022-12-26 11:01 | DCINST_ITS ---
Discharge Instructions Diet Discharge Diet: Low fat / Low cholesterol Activity Discharge Activity: Return to Normal Activity Dressing / Incision Call your doctor if you observe: Fever of 101 or Higher, Shortness of breath, Dizziness, Fainting spells, Swelling in the ankles, Chest pain and Increased palpitations (irregular heartbeat) Follow Up Care Test Results: Test results from this visit will be discussed in further detail at your follow- up appointment, if applicable. Discharge Plan Admission Admit Date/Time: 12/24/22 22:30 Attending Provider: Guilherme Saxena Primary Care Provider: Arcihe Flores Consulting Providers: Eusebio Oconnell Instructions Additional Instructions / Restrictions: F/u with your PCP for a BMP to monitor your electrolytes and potassium Discharge Orders/Prescriptions Prescriptions: New prednisone 20 mg Tablet 40 mg PO BREAKFAST 7 Days Qty: 14 0RF levofloxacin 750 mg tablet 750 mg PO Q48H Qty: 3 0RF Rx Instructions: Start 12/27/2022 Continued nitroglycerin 0.4 mg tablet, sublingual 0.4 mg SUBLINGUAL Q5-15M PRN (Reason: CHEST PAIN) mirtazapine 15 mg tablet 15 mg PO QHS albuterol sulfate 0.63 mg/3 mL solution for nebulization 0.63 mg INHALATION TID PRN (Reason: SOB) amlodipine 5 mg tablet 5 mg PO DAILY furosemide 40 mg tablet 40 mg PO DAILY Hold Instructions: Resume on 10/02/22. Rx Instructions: May take twice daily if needed. magnesium oxide 400 mg (241.3 mg magnesium) tablet 500 mg PO DAILY gabapentin 400 mg capsule 400 mg PO BID Label Comments: neuropathy atorvastatin 10 MG tablet 10 mg PO DAILY carvedilol 25 mg tablet 25 mg PO BID isosorbide mononitrate 30 mg tablet extended release 24 hr 30 mg PO DAILY hydralazine 25 mg tablet 25 mg PO DAILY potassium chloride 20 mEq tablet,ER particles/crystals 20 meq PO BID Referrals / Follow Up: Judd Mcgill MD [Med Staff - Active Staff] - Within 3 Months Archie Flores MD [Primary Care Provider] - Within 1 Week Disposition Disposition (needs filled in before D/C Order can be placed): Home, Self Care
[2022-12-26] MEDS: Potassium Chloride Oral Tablet 20 MEQ 40 MEQ PO (11:42)
--- NOTE | 2022-12-26 12:20 | DS.PCM_ITS ---
Providers Date of Admission: 12/24/22 Primary Care Physician: Dr. Archie Flores MD Reason For Visit: HYPOXIA Diagnosis Discharge Diagnosis (1) Hypoxia: Status: Acute Code(s): R09.02 - Hypoxemia (2) Essential hypertension: Status: Chronic Code(s): I10 - Essential (primary) hypertension Medications at Discharge Home Medications gabapentin 400 mg capsule 400 mg PO BID pain 04/23/19 nitroglycerin 0.4 mg sublingual tablet 0.4 mg sublingual Q5-15M PRN CHEST PAIN 04/23/19 atorvastatin 10 mg tablet 10 mg PO DAILY cholesterol 04/27/19 mirtazapine 15 mg tablet 15 mg PO QHS Depression 12/03/19 albuterol sulfate 0.63 mg/3 mL solution for nebulization 0.63 mg inhalation TID PRN SOB 02/19/20 amlodipine 5 mg tablet 5 mg PO DAILY BP 07/09/20 carvedilol 25 mg tablet 25 mg PO BID HEART 09/28/22 furosemide 40 mg tablet 40 mg PO DAILY Water Pill 10/29/22 magnesium oxide 400 mg (241.3 mg magnesium) tablet 500 mg PO DAILY Suppli mentation 12/02/22 hydralazine 25 mg tablet 25 mg PO DAILY BP 12/24/22 isosorbide mononitrate 30 mg tablet,extended release 24 hr 30 mg PO DAILY SOB 12/24/22 potassium chloride 20 mEq tablet,extended release(part/cryst) 20 meq PO BID Supplimentation 12/24/22 levofloxacin 750 mg tablet 750 mg PO Q48H #3 tabs 12/26/22 prednisone 20 mg tablet 40 mg PO BREAKFAST 7 days #14 tabs 12/26/22 Hospital Course Operations None Procedures None Summary of Care Provided Minutes Spent on Discharge: 38 Hospital Course: Per HPI: INNA AHMADI, is a 72 M with a significant history of COPD; shortness of breath and heart failure who presents to the emergency department with progressively worsening shortness of breath that started a day before presentation.? At baseline patient has shortness of breath.? However a day before presentation he shortness of breath worsened.? Patient works? about 4 to 5 hours each day;? and after each day patient is very fatigued and feels short of breath.? He reports a productive cough of thick milky sputum.? He denies fever.? He reports chills.? He reports weight gain of about 8 pounds in 2 days.? He feels like his bilateral feet are swollen.? Of note since September of last year patient have had pneumonia for about 4 times. At the emergency department with ambulation his oxygen saturation was in the 80s to 70s. Of note patient is set up to have an appointment on January 01, 2023 for possible nighttime oxygen use. Hospital Course: 1. Acute hypoxia secondary to COPD exacerbation with possible pneumonia? 72-year-old male with recurrent episodes of COPD because he stage III presents to the hospital with hypoxia. He was started on steroids as well as Levaquin for possible pneumonia. He has had an improvement over the last 2 days and today with ambulation he did not require any oxygen. I discussed with him the possibility for discharge and he expressed understanding of the risk benefits of going home and wanted to go home today. I do recommend that he continue with his Lasix dosing at home, he was given IV Lasix 20 mg twice daily while here. I also will place him on Levaquin 750 mg every 48 hours for 3 doses secondary to his creatinine clearance. We will also place him on prednisone 40 mg p.o. daily for 7 days. I do recommend that he follow-up with his PCP in 3 to 5 days as well as with his radiation technician. 2. Chronic systolic and diastolic CHF, hypertension, hyperlipidemia, CKD 3a with renal artery stenosis are chronic medical conditions which complicate his care. His home medications were continued where appropriate Physical Exam Narrative General: Alert, Oriented x3, Cooperative, No apparent distress HEENT: Atraumatic, PERRLA, EOMI, Normocephalic Oral: Moist Mucosa Neck: Supple, No JVD Lungs: Diminished, Normal air movement, No rhonchi, no wheeze, No rales Cardiovascular: Regular rate, Regular Rhythm, Normal S1, Normal S2, No murmurs Abdomen: Soft, Non Tender, Non-Distended, No Hepato-splenomegaly Extremities: No edema, Capillary Refill Less than 3 Seconds Skin: No rashes, No breakdown Musculoskeletal: No Tenderness to Palpation of Joints or Extremities Neurological: Cranial nerves II-XII grossly intact, Motor Exam 5/5 strength throughout, Sensory exam intact to light touch and pain Psych/Mental Status: Normal Affect, Appropriate Weight / BMI Weight Weight: 160 lb 14.999 oz Body Mass Index (BMI) 25.2 ABG / Lab / Microbiology Data Result Diagrams: 12/26/22 06:43 12/26/22 06:43 Laboratory: Laboratory Results - last 24 hr 12/26/22 06:43: WBC 7.1, RBC 3.61 L, Hgb 11.6 L, Hct 34.7 L, MCV 96.1 H, MCH 32.1 H, MCHC 33.4 D, RDW Std Deviation 57.0 H, RDW Coeff of Karen 15.9 H, Plt Count 175, MPV 10.5, Immature Gran % (Auto) 0.400, Neut % (Auto) 72.3 H, Lymph % (Auto) 16.9 L, [place] % (Auto) 9.3, Eos % (Auto) 1.0, Baso % (Auto) 0.1, Absolute Neuts (auto) 5.1, Absolute Lymphs (auto) 1.20, Nucleated RBC % 0 12/26/22 06:43: Sodium 137, Potassium 3.3 L, Chloride 101, Carbon Dioxide 28.0, Anion Gap 8, BUN 22 H, Creatinine 1.61 H, Estim Creat Clear Calc 39.92, Est GFR (MDRD) Af Amer 55 L, Est GFR (MDRD) Non-Af 45 L, BUN/Creatinine Ratio 13.7, Glucose 121 H, Calcium 9.1 12/26/22 06:43: Phosphorus 3.7, Magnesium 2.2 Microbiology: Microbiology 12/25/22 00:11 Sputum, Expectorated/Coughed Gram Stain - Final 12/25/22 00:11 Sputum, Expectorated/Coughed Respiratory Culture - Preliminary Appears to be normal respiratory radhika. Further studies to follow. 12/25/22 00:11 Urine, Clean Catch Streptococcus pneumoniae Antigen (M - Final 12/25/22 00:11 Urine, Clean Catch Legionella Antigen - Final 12/24/22 23:18 Mucosa - Nasopharyngeal Influenza Types A,B Direct FA (NYASIA) - Final 12/24/22 19:45 Nasal Secretion SARS-CoV-2 Antigen (Rapid) - Final D/C Instructions Discharge Diet: Low fat / Low cholesterol Call your doctor if you observe: Fever of 101 or Higher, Shortness of breath, Dizziness, Fainting spells, Swelling in the ankles, Chest pain and Increased palpitations (irregular heartbeat) Meaningful Use Info Meaningful Use Diagnoses (Choose all that apply): None applicable Discharge Plan Admission Admit Date/Time: 12/24/22 22:30 Attending Provider: Guilherme Saxena Primary Care Provider: Archie Flores Consulting Providers: Eusebio Oconnell Instructions Additional Instructions / Restrictions: F/u with your PCP for a BMP to monitor your electrolytes and potassium Discharge Orders/Prescriptions Prescriptions: New prednisone 20 mg Tablet 40 mg PO BREAKFAST 7 Days Qty: 14 0RF levofloxacin 750 mg tablet 750 mg PO Q48H Qty: 3 0RF Rx Instructions: Start 12/27/2022 Continued nitroglycerin 0.4 mg tablet, sublingual 0.4 mg SUBLINGUAL Q5-15M PRN (Reason: CHEST PAIN) mirtazapine 15 mg tablet 15 mg PO QHS albuterol sulfate 0.63 mg/3 mL solution for nebulization 0.63 mg INHALATION TID PRN (Reason: SOB) amlodipine 5 mg tablet 5 mg PO DAILY furosemide 40 mg tablet 40 mg PO DAILY Hold Instructions: Resume on 10/02/22. Rx Instructions: May take twice daily if needed. magnesium oxide 400 mg (241.3 mg magnesium) tablet 500 mg PO DAILY gabapentin 400 mg capsule 400 mg PO BID Label Comments: neuropathy atorvastatin 10 MG tablet 10 mg PO DAILY carvedilol 25 mg tablet 25 mg PO BID isosorbide mononitrate 30 mg tablet extended release 24 hr 30 mg PO DAILY hydralazine 25 mg tablet 25 mg PO DAILY potassium chloride 20 mEq tablet,ER particles/crystals 20 meq PO BID Referrals / Follow Up: Judd Mcgill MD [Med Staff - Active Staff] - Within 3 Months Archie Flores MD [Primary Care Provider] - Within 1 Week Disposition Disposition (needs filled in before D/C Order can be placed): Home, Self Care Charges/Coding Visit Charges Inpatient E&M: 25363 Disch Hosp >30min
== END 2022-12-26 14:27 | disposition home or self-care (01) | DRG 194 ==
LOC: ED 22:48 → PCU 23:03
PROVIDERS: Physician Assistant; Admitting Provider Hospitalist; Emergency Provider Emergency Medicine; PCP Family Medicine; Visit Provider Family Medicine
DX: J18.9 Pneumonia, unspecified organism (principal); I50.42 Chronic combined systolic (congestive) and diastolic (congestive) heart failure; I13.0 Hypertensive heart and chronic kidney disease with heart failure and stage 1 through stage 4 chronic kidney disease, or unspecified chronic kidney disease; I42.8 Other cardiomyopathies; J44.1 Chronic obstructive pulmonary disease with (acute) exacerbation; N18.4 Chronic kidney disease, stage 4 (severe); J44.0 Chronic obstructive pulmonary disease with (acute) lower respiratory infection; I70.1 Atherosclerosis of renal artery; E78.00 Pure hypercholesterolemia, unspecified; F17.210 Nicotine dependence, cigarettes, uncomplicated; E78.5 Hyperlipidemia, unspecified; D64.9 Anemia, unspecified; R09.02 Hypoxemia; Q63.8 Other specified congenital malformations of kidney
CPT/HCPCS: 36415; 71045; 80048; 83735; 83880; 84100; 84484; 85025; 87070; 87205; 87449; 87804; 87811; 93005; 94640; 94760; 99252; 99284; 99406; A4216; G0463; J1940

== ENCOUNTER 2023-01-10 16:04 | Inpatient (IN) | payer MEDICARE, SELFPAY ==
[2023-01-10] VITALS (10 sets, daily range): BP systolic 155–176; BP diastolic 74–84; PULSE 56–88; RESP 14–20; TEMP 36.6–36.7; O2SAT 89–98; BMI 26.3; BMI 25.7
--- NOTE | 2023-01-10 16:11 | EKG12_ITS ---
Test Reason : Blood Pressure : / mmHG Vent. Rate : 063 BPM Atrial Rate : 063 BPM P-R Int : 170 ms QRS Dur : 104 ms QT Int : 442 ms P-R-T Axes : 075 -06 170 degrees QTc Int : 452 ms Normal sinus rhythm Left ventricular hypertrophy with repolarization abnormality ( R in aVL , Sokolow-Aguayo , Sunny prod uct ) Abnormal ECG Confirmed by SINAI BRAXTON, GUILLERMO ([id number]), sports editor NANI ALFARO ([id number]) on 01/11/2023 8:45:11 AM Referred By: ANALISA Confirmed By:GUILLERMO RAWLS MD
--- NOTE | 2023-01-10 16:39 | ED.VIS.CHEST ---
HPI History of Present Illness Chief Complaint: Chest Pain Detail of Chief Complaint: Chest pain and shortness of breath Informant: patient Narrative Narrative: Patient presents to the emergency department at request of his primary care physician. Patient states that he was seeing nurse practitioner today because he had some chest discomfort yesterday and chest tightness today. Patient also has had a slight cough. Patient states that he had a sharp pain in his left chest that lasted a few seconds intermittently yesterday. Today he feels some heaviness in his chest. He denies recent travel or surgery. Patient is a smoker. He has not smoked for 2 days. Patient has history of COPD as well as history of CHF. He did complain of some swelling in both legs and feet. Patient denies recent travel or surgery. No history of PE or DVT. Patient tells me he had a heart cath 3 years ago that was unremarkable. Patient has an ICD but has never had any cardiac stents. 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) Anxiety Arthritis Back pain Benign paroxysmal positional vertigo Bradycardia Cancer Cardiology follow-up encounter Cephalgia Chest pain Chronic abdominal pain Chronic cough Chronic HFrEF (heart failure with reduced ejection fraction) Chronic renal insufficiency, stage II (mild) CKD (chronic kidney disease) COPD (chronic obstructive pulmonary disease) Depression Depressive disorder Dizziness Easy bruising Essential hypertension Essential hypertension Gastric reflux GERD (gastroesophageal reflux disease) Hiatal hernia High cholesterol History of hiatal hernia History of pain when walking History of stress test History of ulceration Hx of echocardiogram Injury of head and neck Left ventricular apical thrombus Loss of hearing Myocardial infarct, old Non-ischemic cardiomyopathy Overweight (BMI 25.0-29.9) Palpitations Pulmonary fibrosis Shortness of breath on exertion Smoker Stage 2 moderate COPD by GOLD classification Symptomatic bradycardia Syncope Testicular cancer Tobacco abuse Wears dentures Wears glasses Home Medications gabapentin 400 mg capsule 400 mg PO BID pain 04/23/19 [History Last Taken 09/28/22] nitroglycerin 0.4 mg sublingual tablet 0.4 mg sublingual Q5-15M PRN CHEST PAIN 04/23/19 [History Last Taken 04/25/19] atorvastatin 10 mg tablet 10 mg PO DAILY cholesterol 04/27/19 [History Last Taken 09/28/22] mirtazapine 15 mg tablet 15 mg PO QHS Depression 12/03/19 [History Last Taken 09/27/22] albuterol sulfate 0.63 mg/3 mL solution for nebulization 0.63 mg inhalation TID PRN SOB 02/19/20 [History Last Taken 09/28/22] amlodipine 5 mg tablet 5 mg PO DAILY BP 07/09/20 [History Last Taken 09/28/22] carvedilol 25 mg tablet 25 mg PO BID HEART 09/28/22 [History Last Taken 09/28/22] furosemide 40 mg tablet 40 mg PO DAILY Water Pill 10/29/22 [History Last Taken Unknown] magnesium oxide 400 mg (241.3 mg magnesium) tablet 500 mg PO DAILY Supplimentation 12/02/22 [History Last Taken Unknown] hydralazine 25 mg tablet 25 mg PO DAILY BP 12/24/22 [History Last Taken Unknown] isosorbide mononitrate 30 mg tablet,extended release 24 hr 30 mg PO DAILY SOB 12/24/22 [History Last Taken Unknown] potassium chloride 20 mEq tablet,extended release(part/cryst) 20 meq PO BID Supplimentation 12/24/22 [History Last Taken Unknown] Allergy/AdvReac Type Severity Reaction Status Date / Time LASHONDA Inhibitors Allergy Severe Angioedema Verified 01/10/23 16:07 lisinopril Allergy Severe Angioedema Verified 01/10/23 16:07 Family History (Reviewed 01/04/23 @ 09:47 by Irene Aguirre FISH PROCESSING SUPERVISOR, FISH PROCESSING SUPERVISOR-C) Father Cancer bone AAA (abdominal aortic aneurysm) Grandfather AAA (abdominal aortic aneurysm) Uncle AAA (abdominal aortic aneurysm) Surgical History H/O umbilical hernia repair History of AAA (abdominal aortic aneurysm) repair History of arthroscopic knee surgery History of corneal transplant History of foot surgery History of implantable cardiac defibrillator (ICD) History of knee surgery History of left heart catheterization (02/08/20) History of orchiectomy History of surgery on left wrist History of tonsillectomy Implantable cardioverter-defibrillator (ICD) in situ (08/21/20) Trigeminal neuralgia Social History (Reviewed 01/04/23 @ 09:47 by Irene Aguirre FISH PROCESSING SUPERVISOR, FISH PROCESSING SUPERVISOR-C) household members: spouse Smoking Status: Current every day smoker tobacco type: cigarettes and cigars per week: 14 Tobacco: How many years used: 50 alcohol intake: never substance use type: does not use caffeine: Yes Type: coffee Number of servings: 5 ROS ROS ED Review of Systems ROS Unobtainable: other Constitutional Constitutional ED: Reports lethargy; Denies chills, fever(s), sweats or weight loss Eyes Eyes: Denies blurry vision, change in vision or diplopia ENT ENT ED: Denies rhinorrhea or sore throat Cardiovascular Cardiovascular: Reports chest pain; Denies orthopnea or racing heartbeat Respiratory/Chest Respiratory/Chest: Reports cough, dyspnea and dyspnea on exertion; Denies orthopnea or sputum Gastrointestinal Gastrointestinal: Denies abdominal pain, diarrhea, nausea or vomiting Genitourinary Genitourinary ED: Denies dysuria, hematuria or urinary frequency Musculoskeletal Musculoskeletal: Denies arthralgias, back pain, myalgias or neck pain Integumentary Denies abscess, Abrasions or rash Neurologic Neurologic: Denies headache(s) or weakness Psychiatric Psychiatric: Denies anxiety, depression or suicidal thoughts Endocrine Endocrinology: Denies polydipsia, polyphagia or polyuria Hematologic/Lymphatic Hematologic/Lymphatic: Denies easy bleeding, easy bruising or lymphadenopathy Allergic/Immunologic Allergic/Immunologic ED: Denies mouth swelling, tongue swelling or urticaria EXAM Physical Exam Const Vital Signs: 01/10/23 16:05 01/10/23 16:43 01/10/23 16:51 Temperature 97.8 F Temperature Source Temporal Pulse Rate 63 69 Respiratory Rate 18 15 Respiratory Effort Respiratory Pattern Blood Pressure 173/77 H 172/79 H Blood Pressure Mean 109 110 Pulse Ox 94 96 Oxygen Delivery Method Room Air Room Air Room Air 01/10/23 17:01 01/10/23 16:48 01/10/23 17:09 Temperature Temperature Source Pulse Rate 88 56 L Respiratory Rate 20 H 16 Respiratory Effort Short of Breath Respiratory Pattern Normal Blood Pressure 176/84 H Blood Pressure Mean 114 Pulse Ox 93 Oxygen Delivery Method Room Air 01/10/23 18:14 Temperature Temperature Source Pulse Rate 63 Respiratory Rate 14 Respiratory Effort Respiratory Pattern Blood Pressure 155/77 H Blood Pressure Mean 103 Pulse Ox 98 Oxygen Delivery Method Room Air Positive well nourished and well developed General Appearance ED: well developed and NAD HEENT Reports TM's clear and moist mucous membranes normocephalic and atraumatic; Negative for trauma or tenderness Tympanic Membrane ED: Yes TM's clear Eyes PERRL and EOMs intact bilaterally General Eye ED: Negative for pale conjunctiva or scleral icterus Neck no lymphadenopathy, supple and no JVD General: Negative for tenderness Chest Wall inspection of chest normal and palpation of chest normal Chest: Negative for tenderness Resp normal respiratory effort and clear to auscultation bilaterally Effort and Inspection: Negative for respiratory distress or pain with movement Auscultation: Negative for rhonchi, wheezes or diminished lung sounds Cardio regular rate, regular rhythm, S1 normal heart sound, S2 normal heart sound and no murmurs Peripheral Pulses: pulses 2+ throughout GI normal to inspection, nondistended, normoactive bowel sounds, soft to palpation, non-tender, non-distended and no masses Back/Spine no CVA tenderness and no thoracic nor lumbar tenderness Extremity normal to inspection General Extremety ED: Negative for edema General Extremity: Negative for edema Neuro oriented x3, CN's II-XII intact bilaterally, no sensory deficits noted and gait normal Sensorium / Orientation: awake, alert, oriented to person, oriented to place and oriented to time Motor Exam: strength 5/5 throughout and strength abnormal Psych mental status grossly normal Skin no rashes or lesions noted and no wounds MDM MDM MDM Narrative Medical decision making narrative: Established on arrival. Patient placed on a vehicle monitor technician. Patient with nondescript chest discomfort had an EKG on arrival showed a sinus rhythm with no acute ST segment changes and no change from prior EKG. Patient's troponin was normal and delta troponin also in the normal range. CBC with differential was significant for a white blood cell count of 8.3 hemoglobin of 11.7 and platelet count of 164. Chemistries unremarkable. D-dimer was 2.7. Given his creatinine of 2.07 however and the fact that he only has 1 working kidney I did not feel we would be able to obtain a IV contrast CT study to evaluate for PE. Patient apparently was started on Lovenox subcu. He will require a V/Q study. Chest x-ray obtained showed persistent infiltrate in the right lower lobe with a left effusion. This was chest x-ray was compared to study on December 24. I did order a noncontrast CT of the chest to evaluate this persistent infiltrate. Discussed case with hospitalist to evaluate patient for admission. I did start patient on Zosyn IV. Patient also was given a DuoNeb aerosol on arrival and started on Solu-Medrol 125 mg IV. Lab Data Labs: Laboratory Results - last 24 hr 01/10/23 01/10/23 01/10/23 16:25 16:25 16:25 WBC 8.3 RBC 3.77 L Hgb 11.7 L Hct 36.9 L MCV 97.9 H MCH 31.0 MCHC 31.7 L RDW Std Deviation 59.4 H RDW Coeff of Karen 16.4 H Plt Count 164 MPV 11.2 Immature Gran % (Auto) 0.800 Neut % (Auto) 65.9 Lymph % (Auto) 18.7 L [place] % (Auto) 12.0 H Eos % (Auto) 2.1 Baso % (Auto) 0.5 Absolute Neuts (auto) 5.4 Absolute Lymphs (auto) 1.54 Nucleated RBC % 0 D-Dimer Quant (PE/DVT) 2.70 H* Sodium 139 Potassium 3.1 L Chloride 103 Carbon Dioxide 30.0 Anion Gap 6 BUN 25 H Creatinine 2.07 H Estim Creat Clear Calc 31.05 Est GFR (MDRD) Af Amer 41 L Est GFR (MDRD) Non-Af 34 L BUN/Creatinine Ratio 12.1 Glucose 150 H Calcium 8.9 Troponin I High Sens 34 B-Natriuretic Peptide 01/10/23 01/10/23 16:25 18:25 WBC RBC Hgb Hct MCV MCH MCHC RDW Std Deviation RDW Coeff of Karen Plt Count MPV Immature Gran % (Auto) Neut % (Auto) Lymph % (Auto) [place] % (Auto) Eos % (Auto) Baso % (Auto) Absolute Neuts (auto) Absolute Lymphs (auto) Nucleated RBC % D-Dimer Quant (PE/DVT) Sodium Potassium Chloride Carbon Dioxide Anion Gap BUN Creatinine Estim Creat Clear Calc Est GFR (MDRD) Af Amer Est GFR (MDRD) Non-Af BUN/Creatinine Ratio Glucose Calcium Troponin I High Sens 42 B-Natriuretic Peptide 608.5 H Radiography Diagnostic Testing: Clinical Impression(s) from Imaging Studies Chest X-Ray 01/10/23 17:15 IMPRESSION: 1. Persistent infiltrates most marked at the right lung base. 2. Small left pleural effusion. Electronically Signed: Kevin Addison DO at 17:29 EDT Reading Location ID and State: [address] [place] [address] Tel [phone], Service support , 1 view chest x-ray obtained interpreted by myself as right lower lobe infiltrate and left effusion. Radiology was in agreement. EKG Initial EKG: Attestation: I personally reviewed and interpreted this EKG as follows: Comments: Sinus rhythm with a ventricular rate of 63 bpm with LVH however no significant ST changes when compared with prior EKG from December 24. Prior EKG tracings: available for review Prior: Unchanged Discharge Plan Triage Chief Complaint: Chest Pain ED Provider: Fiona Bhatia Dx/Rx/DC Orders Clinical Impression: Pneumonia, Chest pain, Acute renal insufficiency Prescriptions: No Action nitroglycerin 0.4 mg tablet, sublingual 0.4 mg SUBLINGUAL Q5-15M PRN (Reason: CHEST PAIN) mirtazapine 15 mg tablet 15 mg PO QHS albuterol sulfate 0.63 mg/3 mL solution for nebulization 0.63 mg INHALATION TID PRN (Reason: SOB) amlodipine 5 mg tablet 5 mg PO DAILY furosemide 40 mg tablet 40 mg PO DAILY Hold Instructions: Resume on 10/02/22. Rx Instructions: May take twice daily if needed. magnesium oxide 400 mg (241.3 mg magnesium) tablet 500 mg PO DAILY gabapentin 400 mg capsule 400 mg PO BID Label Comments: neuropathy atorvastatin 10 MG tablet 10 mg PO DAILY carvedilol 25 mg tablet 25 mg PO BID isosorbide mononitrate 30 mg tablet extended release 24 hr 30 mg PO DAILY hydralazine 25 mg tablet 25 mg PO DAILY potassium chloride 20 mEq tablet,ER particles/crystals 20 meq PO BID Primary Care Provider: Christopher Cortez Referrals: Archie Flores MD [Non-Staff] - Disposition Disposition: Acute Care Hospital
[2023-01-10 16:41] LABS: Absolute Lymphocyte Count 1.54 X10^3/uL (0.83-4.51); Absolute Neutrophil Count 5.4 X10^3/uL (2.0-7.7); Basophil# 0.04 X10^3/uL; Basophil% 0.5 % (0-1); Eosinophil# 0.17 X10^3/uL; Eosinophils% 2.1 % (0-5); Hematocrit 36.9 % (40-54); Hemoglobin 11.7 g/dL (13.0-16.5); Lymphocyte # 1.54 X10^3/ul (0.83-4.51); Lymphocyte % 18.7 % (19-41); Mean Corp Hgb Conc 31.7 g/dL (32-36); Mean Corpuscular Volume 97.9 fL (80-94); Mean Platelet Vol. 11.2 fl (6.2-12.0); Monocyte# 0.99 X10^3/uL; NRBC Flagged by Analyzer 0 % (0-5); Neutrophil # 5.44 X10^3/uL (2.7-7.7); Neutrophil % 65.9 % (47-70); Platelet Count 164 K/mm3 (150-450); RBC Distribution Width CV 16.4 % (11.6-14.6); RBC Distribution Width SD 59.4 fl (35.1-43.9); Red Blood Count 3.77 M/mm3 (4.6-6.2); White Blood Count 8.3 K/mm3 (4.4-11.0)
[2023-01-10] MEDS: Ipratropium/Albuterol Sulfate 3 ML AMPUL.NEB INHALATION (16:48)
[2023-01-10] MEDS: Aspirin 81 MG TAB.CHEW 324 MG PO (16:51)
[2023-01-10 16:52] LABS: Anion Gap 6 (5-15); BUN 25 mg/dL (7-18); BUN/Creat Ratio 12.1 RATIO (10-20); Calcium,Total 8.9 mg/dL (8.5-10.1); Chloride 103 mmol/L (98-107); Creatinine, Serum 2.07 mg/dL (0.70-1.30); EST Glomerular Filtration Rate 34 mL/min (>60); Est Glom Filt Rate - Afr Amer 41 mL/min (>60); Estimated Creatinine Clearance 31.05 ml/min; Glucose 150 mg/dL (74-106); Potassium 3.1 mmol/L (3.5-5.1); Sodium Level 139 mmol/L (136-145); Troponin-I HS 34 pg/mL (3.0-78.0)
--- NOTE | 2023-01-10 17:15 | RAD_ITS ---
STUDY: X-RAY CHEST REASON FOR EXAM: Male, 72 years old. Chest pain for 3 days. TECHNIQUE: Single AP portable view of the chest. COMPARISON: December 24, 2022. FINDINGS: Lungs are well-expanded. There is mild interstitial changes throughout both lungs decreased from the prior study. There is persistent interstitial and alveolar density at the right lung base. Persistent left pleural effusion. The heart is normal in size. Stable cardiac pacemaker. Normal mediastinum and leanne. Normal visualized pulmonary arteries. There is atherosclerotic calcification of the aortic arch with tortuosity. The thoracic spine is obscured by the mediastinum. Normal visualized ribs, clavicles, and shoulders. There is no demonstrated abnormality of the visualized soft tissue structures of the upper abdomen. RAD/Chest 1 View (Portable) IMPRESSION: 1. Persistent infiltrates most marked at the right lung base. 2. Small left pleural effusion. Electronically Signed: Kevin Addison DO at 17:29 EDT ,
[2023-01-10 17:40] LABS: BNP,B-Type NATRIURETIC PEPTIDE 608.5 pg/mL (0-100)
[2023-01-10 18:52] LABS: Troponin-I HS 42 pg/mL (3.0-78.0)
--- NOTE | 2023-01-10 19:20 | PCM.HP.STD ---
[facility] - General General Date of Admission: 01/10/23 Date of Service: 01/10/23 Chief Complaint: Chest pain HPI Narrative INNA AHMADI, is a 72 M with a significant history of COPD; heart failure with improved ejection fraction; and was started on nighttime oxygen of 4 L in less than a week presents emergency department with chest pain that started a day before presentation. On the day of presentation his chest pain was severe and sharp. Thereafter his chest pain has improved. His chest pain transition from being sharp to heaviness and burning. Associated with symptom is shortness of breath which reportedly was noticed by someone else. Reportedly a day before his presentation his face and beneath his feet were puffy and he had gained 1 pound for which reason he took an extra dose of Lasix as previously instructed. He reports a productive cough of white milky appearance. He denies anorexia. He denies fever. He reports chronic chills. 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) Anxiety Arthritis Back pain Benign paroxysmal positional vertigo Bradycardia Cancer Cardiology follow-up encounter Cephalgia Chest pain Chronic abdominal pain Chronic cough Chronic HFrEF (heart failure with reduced ejection fraction) Chronic renal insufficiency, stage II (mild) CKD (chronic kidney disease) COPD (chronic obstructive pulmonary disease) Depression Depressive disorder Dizziness Easy bruising Essential hypertension Essential hypertension Gastric reflux GERD (gastroesophageal reflux disease) Hiatal hernia High cholesterol History of hiatal hernia History of pain when walking History of stress test History of ulceration Hx of echocardiogram Injury of head and neck Left ventricular apical thrombus Loss of hearing Myocardial infarct, old Non-ischemic cardiomyopathy Overweight (BMI 25.0-29.9) Palpitations Pulmonary fibrosis Shortness of breath on exertion Smoker Stage 2 moderate COPD by GOLD classification Symptomatic bradycardia Syncope Testicular cancer Tobacco abuse Wears dentures Wears glasses Home Medications gabapentin 400 mg capsule 400 mg PO BID pain 04/23/19 [History Last Taken 09/28/22] nitroglycerin 0.4 mg sublingual tablet 0.4 mg sublingual Q5-15M PRN CHEST PAIN 04/23/19 [History Last Taken 04/25/19] atorvastatin 10 mg tablet 10 mg PO DAILY cholesterol 04/27/19 [History Last Taken 09/28/22] mirtazapine 15 mg tablet 15 mg PO QHS Depression 12/03/19 [History Last Taken 09/27/22] albuterol sulfate 0.63 mg/3 mL solution for nebulization 0.63 mg inhalation TID PRN SOB 02/19/20 [History Last Taken 09/28/22] amlodipine 5 mg tablet 5 mg PO DAILY BP 07/09/20 [History Last Taken 09/28/22] carvedilol 25 mg tablet 25 mg PO BID HEART 09/28/22 [History Last Taken 09/28/22] furosemide 40 mg tablet 40 mg PO BID Water Pill 10/29/22 [History Last Taken Unknown] magnesium oxide 400 mg (241.3 mg magnesium) tablet 500 mg PO DAILY Supplimentation 12/02/22 [History Last Taken Unknown] hydralazine 25 mg tablet 25 mg PO DAILY BP 12/24/22 [History Last Taken Unknown] isosorbide mononitrate 30 mg tablet,extended release 24 hr 30 mg PO DAILY SOB 12/24/22 [History Last Taken Unknown] potassium chloride 20 mEq tablet,extended release(part/cryst) 20 meq PO BID Supplimentation 12/24/22 [History Last Taken Unknown] bupropion HCl 150 mg 24 hr tablet, extended release 75 mg PO BID 01/10/23 [History Last Taken Unknown] Allergy/AdvReac Type Severity Reaction Status Date / Time LASHONDA Inhibitors Allergy Severe Angioedema Verified 01/10/23 16:07 lisinopril Allergy Severe Angioedema Verified 01/10/23 16:07 Family History Father Cancer bone AAA (abdominal aortic aneurysm) Grandfather AAA (abdominal aortic aneurysm) Uncle AAA (abdominal aortic aneurysm) Surgical History H/O umbilical hernia repair History of AAA (abdominal aortic aneurysm) repair History of arthroscopic knee surgery History of corneal transplant History of foot surgery History of implantable cardiac defibrillator (ICD) History of knee surgery History of left heart catheterization (02/08/20) History of orchiectomy History of surgery on left wrist History of tonsillectomy Implantable cardioverter-defibrillator (ICD) in situ (08/21/20) Trigeminal neuralgia Social History household members: spouse Smoking Status: Current every day smoker tobacco type: cigarettes and cigars per week: 14 Tobacco: How many years used: 50 alcohol intake: never substance use type: does not use caffeine: Yes Type: coffee Number of servings: 5 ROS ROS Narrative Pertinent positives and pertinent negatives as noted in HPI. All other systems were reviewed and are negative Vital Signs Vital Signs Vital Signs: 01/10/23 16:05 01/10/23 16:43 01/10/23 16:51 Temperature 97.8 F Temperature Source Temporal Pulse Rate 63 69 Respiratory Rate 18 15 Respiratory Effort Respiratory Pattern Blood Pressure 173/77 H 172/79 H Blood Pressure Mean 109 110 Pulse Ox 94 96 Oxygen Delivery Method Room Air Room Air Room Air 01/10/23 17:01 01/10/23 16:48 01/10/23 17:09 Temperature Temperature Source Pulse Rate 88 56 L Respiratory Rate 20 H 16 Respiratory Effort Short of Breath Respiratory Pattern Normal Blood Pressure 176/84 H Blood Pressure Mean 114 Pulse Ox 93 Oxygen Delivery Method Room Air 01/10/23 18:14 Temperature Temperature Source Pulse Rate 63 Respiratory Rate 14 Respiratory Effort Respiratory Pattern Blood Pressure 155/77 H Blood Pressure Mean 103 Pulse Ox 98 Oxygen Delivery Method Room Air Weight Weight: 76.294 kg Body Mass Index (BMI) 26.3 Physical Exam Narrative Physical exam: General: Well-nourished, well-developed. Head: Normocephalic, atraumatic, no tenderness Eyes: Vision is grossly intact. EOMI ENT, no trauma, moist mucous membranes, no rhinorrhea Neck: Nontender, No thyromegaly. CVS: Regular rate and rhythm. S1-S2 present. No murmur, gallop or rub. Respiratory : Diminished, chest wall nontender, no wheezing Abdomen: Soft, nontender, nondistended, normal bowel sounds, no masses : Deferred Back: Nontender, no CVA tenderness, no midline spinal tenderness, deformities, step-offs Extremities: Nontender full range of motion, no trauma Skin: Normal color, no trauma, abrasions Neuro: Alert, oriented, cranial nerves II through XII grossly intact. Psychiatry: Normal mood. Normal affect. Not depressed. Not anxious. Results Lab / Micro Data Result Diagrams: 01/10/23 16:25 01/10/23 16:25 Labs: Laboratory Results - last 24 hr 01/10/23 16:25: WBC 8.3, RBC 3.77 L, Hgb 11.7 L, Hct 36.9 L, MCV 97.9 H, MCH 31.0, MCHC 31.7 L, RDW Std Deviation 59.4 H, RDW Coeff of Karen 16.4 H, Plt Count 164, MPV 11.2, Immature Gran % (Auto) 0.800, Neut % (Auto) 65.9, Lymph % (Auto) 18.7 L, [place] % (Auto) 12.0 H, Eos % (Auto) 2.1, Baso % (Auto) 0.5, Absolute Neuts (auto) 5.4, Absolute Lymphs (auto) 1.54, Nucleated RBC % 0 01/10/23 16:25: Sodium 139, Potassium 3.1 L, Chloride 103, Carbon Dioxide 30.0, Anion Gap 6, BUN 25 H, Creatinine 2.07 H, Estim Creat Clear Calc 31.05, Est GFR (MDRD) Af Amer 41 L, Est GFR (MDRD) Non-Af 34 L, BUN/Creatinine Ratio 12.1, Glucose 150 H, Calcium 8.9, Troponin I High Sens 34 01/10/23 16:25: D-Dimer Quant (PE/DVT) 2.70 H* 01/10/23 16:25: B-Natriuretic Peptide 608.5 H 01/10/23 18:25: Troponin I High Sens 42 Micro: Microbiology 01/10/23 17:15 Nasal Secretion SARS-CoV-2 & FLU Antigen (Rapid) - Final Radiology Impression Chest X-Ray 01/10/23 17:15 IMPRESSION: 1. Persistent infiltrates most marked at the right lung base. 2. Small left pleural effusion. Electronically Signed: Kevin Addison DO at 17:29 EDT Reading Location ID and State: [facility] / [place] Tel [phone], Service support , Assessment & Plan Assessment/Plan (1) Chest pain: (2) Dyspnea: PLAN: Plan Chest pain and dyspnea Impression of chest x-ray by radiologist: 1.? Persistent infiltrates most marked at the right lung base. 2.? Small left pleural effusion. Chest x-ray was visualized and independently interpreted. I agree with radiologist interpretation. White count is normal. Patient is afebrile. Pneumonia is less likely. We will check procalcitonin. D-dimer was elevated. However patient has only 1 working kidney left kidney is atrophic. CTA chest not done at the ED. CT scan ordered, follow. BNP is elevated but lower so far on file. Echocardiogram on 11/11/2022 showed improved ejection fraction stress test on 11/11/2022 showed normal pharmacological myocardial perfusion stress test with reduced ejection fraction. If CT chest does not explain patient's symptoms consider VQ scan. Of note patient has baseline irregularities of the chest. Procalcitonin has been ordered but with a kidney disease if elevated could be difficult to interpret. Rapid flu and COVID antigen was negative. Strep pneumoniae, Legionella urine antigen and mycoplasma antibody ordered. Sputum culture ordered. AFB stain and cytology ordered. Hypertension Blood pressure is not within goal Home blood pressure medication continued. As needed hydralazine ordered. Trend blood pressure and adjust blood pressure medications. Elevated D-dimer D-dimer on presentation was elevated Patient with 1 atrophic kidney and only one working kidney. CTA chest not ordered. VQ scan ordered. Given 1 therapeutic dose of Lovenox at the ED. CKD stage IIIb Stable Trend BMP. Hypokalemia Home potassium mentation continued. Trend CMP. DVT prophylaxis: Not indicated as patient was given therapeutic dose of Lovenox at the emergency department. Charges/Coding Visit Charges Inpatient E&M: 52789 Init Hosp L3
--- NOTE | 2023-01-10 19:37 | CT_ITS ---
INDICATION: Right persistent infiltrate. EXAMINATION: CT CHEST WITHOUT CONTRAST - CT Chest W/O Contrast Injection TECHNIQUE: Helically acquired images were obtained of the chest. A radiation dose optimization technique was used for this scan. IV Contrast dosage and agent: None. COMPARISON: Chest, January 10, 2023. CT of the chest, December 14, 2021. FINDINGS: LUNGS, PLEURA AND LARGE AIRWAYS: Mild pulmonary fibrosis. There is honeycombing posteriorly at the lung bases. There is continued collapse of the right middle lobe. Again seen is partial collapse of the left lower lobe. Small left pleural effusion. No pneumothorax. THYROID: No thyroid lesions. HEART AND PERICARDIUM: The heart is borderline enlarged. There is a pacer lead in the right heart. No pericardial effusion. CORONARY ARTERIES: Mild coronary calcifications. VESSELS: Atherosclerotic changes of the thoracic aorta without aneurysm. Normal pulmonary arteries. MEDIASTINUM AND SUDARSHAN: Diffuse nonspecific subcentimeter mediastinal lymphadenopathy. Esophagus is unremarkable. No hiatal hernia. UPPER ABDOMEN: Marked atrophy of the left kidney when compared to the right. The upper abdomen is otherwise grossly normal. BONES: Degenerative changes of the thoracic spine without fracture. No lytic or blastic lesions. CT/Chest without Contrast IMPRESSION: 1. Complete collapse of the right middle lobe. This accounts for the persistent density seen at the right lung base on plain film. This was not present on the prior CT. 2. Near complete collapse of the left lower lobe with small pleural effusion. Again this was not present on the prior CT. 3. Borderline cardiomegaly with cardiac pacemaker. 4. Stable nonspecific mediastinal lymphadenopathy. Electronically Signed: Kevin Addison DO at 20:06 EDT ,
[2023-01-10] MEDS: Enoxaparin 80 MG/0.8 ML Syringe SC (19:54)
[2023-01-10] MEDS: MethylPREDNISolone 125 MG/2 ML Vial IV (19:54)
--- NOTE | 2023-01-10 22:29 | EKG12_ITS ---
Test Reason : ADMIT EKG Blood Pressure : / mmHG Vent. Rate : 064 BPM Atrial Rate : 064 BPM P-R Int : 176 ms QRS Dur : 104 ms QT Int : 462 ms P-R-T Axes : 042 -25 146 degrees QTc Int : 476 ms Normal sinus rhythm Left ventricular hypertrophy with repolarization abnormality ( R in aVL , Sokolow-Aguayo , Sunny prod uct , Romhilt-Granados ) Abnormal ECG When compared with ECG of 10-JAN-2023 16:11, MANUAL COMPARISON REQUIRED, DATA IS UNCONFIRMED Confirmed by SINAI BRAXTON, GUILLERMO ([id number]), electronic news gathering editor NANI ALFARO ([id number]) on 01/12/2023 8:21:04 AM Referred By: DR VENCES Confirmed By:GUILLERMO RAWLS MD
[2023-01-10 23:46] LABS: Troponin-I HS 49 pg/mL (3.0-78.0)
[2023-01-11] VITALS (11 sets, daily range): BP systolic 133–175; BP diastolic 70–107; PULSE 62–88; RESP 18–22; TEMP 36.4–36.8; O2SAT 92–96
[2023-01-11] MEDS: Gabapentin 400 MG Capsule PO ×3 (00:25→20:53)
[2023-01-11] MEDS: buPROPion 75 MG Tablet PO ×3 (00:25→20:54)
[2023-01-11] MEDS: Mirtazapine 15 MG Tablet PO ×2 (00:26→20:55)
[2023-01-11 00:39] LABS: M R Staph aureus DNA By PCR Negative (Negative); Probe Check PASS; Specimen Processing Control PASS
[2023-01-11 06:24] LABS: Absolute Lymphocyte Count 0.46 X10^3/uL (0.83-4.51); Absolute Neutrophil Count 4.4 X10^3/uL (2.0-7.7); Basophil# 0.01 X10^3/uL; Basophil% 0.2 % (0-1); Hematocrit 37.2 % (40-54); Lymphocyte # 0.46 X10^3/ul (0.83-4.51); Lymphocyte % 9.3 % (19-41); Mean Corp Hgb Conc 32.3 g/dL (32-36); Mean Corpuscular Hgb 31.7 pg (27.0-32.0); Mean Corpuscular Volume 98.2 fL (80-94); Mean Platelet Vol. 10.7 fl (6.2-12.0); Monocyte# 0.03 X10^3/uL; Monocyte% 0.6 % (0-10); NRBC Flagged by Analyzer 0 % (0-5); Neutrophil % 89.1 % (47-70); POSITIVE DIFFERENTIAL YES; POSITIVE MORPHOLOGY YES; Platelet Count 171 K/mm3 (150-450); RBC Distribution Width CV 16.1 % (11.6-14.6); RBC Distribution Width SD 58.3 fl (35.1-43.9); Red Blood Count 3.79 M/mm3 (4.6-6.2); White Blood Count 4.9 K/mm3 (4.4-11.0)
[2023-01-11 06:37] LABS: Differential Indicated SCAN CRITERIA MET
[2023-01-11 06:45] LABS: Anion Gap 7 (5-15); BUN 26 mg/dL (7-18); BUN/Creat Ratio 12.3 RATIO (10-20); Calcium,Total 8.8 mg/dL (8.5-10.1); Chloride 103 mmol/L (98-107); Creatinine, Serum 2.12 mg/dL (0.70-1.30); EST Glomerular Filtration Rate 33 mL/min (>60); Est Glom Filt Rate - Afr Amer 40 mL/min (>60); Estimated Creatinine Clearance 30.31 ml/min; Glucose 281 mg/dL (74-106); Potassium 3.5 mmol/L (3.5-5.1); Sodium Level 137 mmol/L (136-145)
[2023-01-11 07:01] LABS: Anisocytosis 1+
[2023-01-11 07:02] LABS: Macrocytosis RARE
--- NOTE | 2023-01-11 07:55 | PN.HOSP_ITS ---
Reason for Visit Reason for Visit: Shortness of breath/chest pain Subjective Subjective Mr. Wolfe is a 72-year-old white male who presented to the emergency department at [facility] on 01/10/2023 with a chief complaint of chest pain and shortness of breath. He was seen by the nurse practitioner at his primary care office for some chest discomfort and tightness and intermittent cough. He reported that the pain was sharp in his left chest and lasted a few minutes yesterday and he has had intermittently since. He also complained of some as sociated chest heaviness. He does have an ongoing issue with tobacco abuse but has not smoked for 2 days. He had a cardiac catheterization 3 years ago that was unremarkable and has an ICD but never had to have any percutaneous intervention or CABG. On presentation his temperature was 97.8, blood heart rate 63, blood pressure was 173/77 respiratory rate was 18 and oxygen saturation was 94% on room air. The patient does utilize oxygen at night requiring 4 L per recent nocturnal study. His chemistry panel showed a chronic stable anemia that was macrocytic but was otherwise unremarkable. His chemistry panel showed chronic stable CKD stage IV and mild hypokalemia with a potassium of 3.1. I nitial troponin was 34 with a delta troponin 42 and a repeat at 49. BNP was elevated at 608 on presentation however upon review of his previous BNPs this is the lowest he has had since January 2020. Procalcitonin was ordered and pending. A D-dimer was obtained and found to be 2.70. Unfortunately a CTA could not be performed because of his renal function. They did obtain a CT without contrast of his chest that demonstrated complete collapse of the right middle lobe and near complete collapse of the left lower lobe with a small pleural effusion both of which were new compared to previous CT that was done on December 14, 2021. Still with some intermittent chest pressure type sensation blood pressure was elevated this morning 175/76 before he received his medications. This may be related to hypertensive and but I want to see what his blood pressure does after he gets his medications. If his pressures are still high we may need to uptitrate some of his medication. I did discuss with him the findings on his CAT scan and he did indicate that pulmonary medicine was by. [facility]. I explained to him what we are going to do with regards to his pulmonary toilet including his incentive spirometer and Acapella and he voiced understanding. Objective Data Objective Data Vital Signs: Vital Signs Temp Pulse Resp BP Pulse Ox O2 Del Method O2 Flow Rate 97.5 F L 63 18 160/71 H 96 Nasal Cannula 2 01/11/23 04:36 01/11/23 04:36 01/11/23 04:36 01/11/23 04:36 01/11/23 04:36 01/11/23 07:48 01/11/23 07:48 Oxygen Flow Rate (L/min) 2 Oxygen Delivery Method Nasal Cannula Weight: 74.6 kg Body Mass Index (BMI) 25.7 Intake & Output: Intake and Output for Last 24 Hours 01/09/23 01/10/23 01/11/23 23:59 23:59 23:59 Intake Total 100 / 100 Output Total 0 / 0 Balance 100 / 100 Lab / Micro Data Result Diagrams: 01/11/23 06:15 01/11/23 06:15 Labs: Laboratory Results - last 24 hr 01/10/23 16:25: WBC 8.3, RBC 3.77 L, Hgb 11.7 L, Hct 36.9 L, MCV 97.9 H, MCH 31.0, MCHC 31.7 L, RDW Std Deviation 59.4 H, RDW Coeff of Karen 16.4 H, Plt Count 164, MPV 11.2, Immature Gran % (Auto) 0.800, Neut % (Auto) 65.9, Lymph % (Auto) 18.7 L, [place] % (Auto) 12.0 H, Eos % (Auto) 2.1, Baso % (Auto) 0.5, Absolute Neuts (auto) 5.4, Absolute Lymphs (auto) 1.54, Nucleated RBC % 0 01/10/23 16:25: Sodium 139, Potassium 3.1 L, Chloride 103, Carbon Dioxide 30.0, Anion Gap 6, BUN 25 H, Creatinine 2.07 H, Estim Creat Clear Calc 31.05, Est GFR (MDRD) Af Amer 41 L, Est GFR (MDRD) Non-Af 34 L, BUN/Creatinine Ratio 12.1, Glucose 150 H, Calcium 8.9, Troponin I High Sens 34 01/10/23 16:25: D-Dimer Quant (PE/DVT) 2.70 H* 01/10/23 16:25: B-Natriuretic Peptide 608.5 H 01/10/23 18:25: Troponin I High Sens 42 01/10/23 22:40: MRSA (PCR) Negative 01/10/23 23:19: Troponin I High Sens 49 01/11/23 06:15: WBC 4.9, RBC 3.79 L, Hgb 12.0 L, Hct 37.2 L, MCV 98.2 H, MCH 31.7, MCHC 32.3, RDW Std Deviation 58.3 H, RDW Coeff of Karen 16.1 H, Plt Count 171, MPV 10.7, Immature Gran % (Auto) 0.800, Neut % (Auto) 89.1 H, Lymph % (Auto) 9.3 L, [place] % (Auto) 0.6, Eos % (Auto) 0.0, Baso % (Auto) 0.2, Absolute Neuts (auto) 4.4, Absolute Lymphs (auto) 0.46 L, Nucleated RBC % 0, Anisocytosis 1+, Macrocytosis RARE 01/11/23 06:15: Sodium 137, Potassium 3.5, Chloride 103, Carbon Dioxide 27.0, Anion Gap 7, BUN 26 H, Creatinine 2.12 H, Estim Creat Clear Calc 30.31, Est GFR (MDRD) Af Amer 40 L, Est GFR (MDRD) Non-Af 33 L, BUN/Creatinine Ratio 12.3, Glucose 281 H, Calcium 8.8 Micro: Microbiology 01/10/23 20:25 Urine, Clean Catch Legionella Antigen - Final 01/10/23 20:25 Urine, Clean Catch Streptococcus pneumoniae Antigen (M - Final 01/10/23 17:15 Nasal Secretion SARS-CoV-2 & FLU Antigen (Rapid) - Final Radiography Diagnostic Testing: Radiology Impression Chest X-Ray 01/10/23 17:15 IMPRESSION: 1. Persistent infiltrates most marked at the right lung base. 2. Small left pleural effusion. Electronically Signed: Kevin Addison DO at 17:29 EDT Reading Location ID and State: [facility] / [place] Tel [phone], Service support , Chest CT 01/10/23 19:37 IMPRESSION: 1. Complete collapse of the right middle lobe. This accounts for the persistent density seen at the right lung base on plain film. This was not present on the prior CT. 2. Near complete collapse of the left lower lobe with small pleural effusion. Again this was not present on the prior CT. 3. Borderline cardiomegaly with cardiac pacemaker. 4. Stable nonspecific mediastinal lymphadenopathy. Electronically Signed: Kevin Addison DO at 20:06 EDT Reading Location ID and State: [address] [place] [address] Tel [phone], Service support , Physical Exam Const alert, oriented x3, no apparent distress and well nourished Constitutional Narrative: Older white male, sitting up in bed, at bedside, patient appears comfortabl e and nontoxic at this time HEENT head/scalp atraumatic and moist oral mucous membranes HEENT Narrative: Edentulous, Mallampati is 2, no thrush Head and Scalp: normocephalic Resp normal respiratory effort, no retractions and no use of accessory muscles Resp Narrative: Diffusely diminished with few scattered end expiratory wheezes noted most notably in the left midlung area and right apex Auscultation: wheezes; Negative for rales or rhonchi Cardio regular rate, regular rhythm, S1 normal heart sound, S2 normal heart sound, no murmurs, no rub, no gallops and no clicks GI normal to inspection, nondistended, normoactive bowel sounds, soft to palpation and non-tender Extremity no clubbing, cyanosis or edema Extremity Narrative: 2+ pedal pulses Neuro oriented x3, moves all extremities and no focal motor deficits Speech: speech normal Psych affect normal Mood & Affect: anxious Assessment & Plan Assessment/Plan (1) Dyspnea: (2) Chest pain: (3) Abnormal CT of the chest: PLAN: Plan Atypical chest pain -Patient had a unremarkable cardiac catheterization 3 years ago and a negative stress test on 11/11/2022 -Cardiac enzymes were cycled and unremarkable. -Recent echocardiogram was performed and showed an EF of 50% with borderline global hypokinesis of the LV, mild concentric LVH, moderate left atrial enlargement and mild right atrial enlargement as well as stage II diastolic dysfunction and a pulmonary systolic pressure of 53 mmHg -No further cardiac work-up at this time Elevated D-dimer -Patient was fully anticoagulated x1 dose of enoxaparin in the emergency department last evening -We will hold further anticoagulation as bronchoscopy with biopsies may need to be performed tomorrow -Check bilateral lower extremity ultrasounds -Discontinue V/Q as it will be an abnormal study given the abnormality in the lung parenchyma on his CT of the chest Abnormal CT of the chest -Pulmonary medicine consulted--> possible bronchoscopy tomorrow -Aggressive pulmonary toilet with DuoNebs and as needed albuterol -Procalcitonin is pending -COVID and flu negative -Strep pneumo and Legionella antigens are negative -Sputum cultures pending -Hold on empiric antibiotics for now -Acapella -I-S -Mucinex Hypokalemia -Resolved with replacement yesterday CKD stage IV -Baseline serum creatinine appears to be between 1.75 and 2 -Current serum creatinine is 2.12 -Repeat BMP in a.m. -Avoid nephrotoxins -Patient has solitary kidney -Patient follows with Dr. Melo as an outpatient Chronic nocturnal hypoxia -Recent polysomnography ruled out obstructive sleep apnea but patient does require supplemental oxygen with sleeping -4 L nocturnally COPD Gold stage 3-severe -FEV1 is 60% predicted -Patient has upcoming pulmonary function test and outpatient walking oximetry to be performed -Follow-up with pulmonary medicine arranged for May -Patient is on as needed nebulized at home now until further work-up can be com pleted -Recommend tobacco cessation -May need to consider adding inhaler therapy at discharge -Pulmonary medicine is following History of nonischemic cardiomyopathy -Echocardiogram from 2019 showed severe global left hypokinesis with an EF of 30 to 35% and stage II diastolic dysfunction -Most recent echocardiogram from 11/11/2022 showed improvement in his EF to 50% with borderline global left hypokinesis, moderate left atrial enlargement, mild right atrial enlargement, stage II diastolic function and pulmonary artery systolic pressure 53 mmHg -Continue carvedilol 25 mg p.o. twice daily -Continue furosemide 40 mg p.o. twice daily -Continue hydralazine 25 g daily -Continue isosorbide mononitrate at 30 mg daily -It appears that the patient has had improvement with appropriate goal-directed therapy -Patient does have ICD in place but has never fired -Follow-up with cardiology as directed at last appointment-10/29/2022 History of AAA -Status post repair -No current issues Hypertension -Continue Lasix, carvedilol, hydralazine, isosorbide mononitrate, amlodipine -As needed hydralazine if needed for systolic pressure greater than 160 -Blood pressures have been elevated and may be the etiology for some of his chest pain--> will reassess after he has been doses home a.m. blood pressure medicine -If BP remains elevated I will likely uptitrate his hydralazine as he is only on 25 mg daily Hyperlipidemia -Continue atorvastatin 10 mg daily Neuropathy -Continue gabapentin Depression -Continue mirtazapine DVT prophylaxis -Heparin 3 times daily CODE STATUS -Full code Charges/Coding Visit Charges Inpatient E&M: 71203 Subs Hosp L2
--- NOTE | 2023-01-11 07:55 | VDLE_ITS ---
Reason For Study: D-Dimer RIGHT LEFT GSV is normal. GSV is normal. CFV is compressible, spontaneous, phasic, CFV is compressible, spontaneous, phasic, competent and demonstrates normal competent, and demonstrates normal augmentation. augmentation. FV is compressible, spontaneous, phasic, FV is compressible, spontaneous, phasic, competent and demonstrates normal competent and demonstrates normal augmentation. augmentation. POP V is compressible, spontaneous, phasic, POP V is compressible, spontaneous, phasic, competent and demonstrates normal competent and demonstrates normal augmentation. augmentation. T/P Trunk is compressible. T/P Trunk is compressible. PTV is compressible. PTV is compressible. RT PerV is compressible. LT PerV is compressible. Procedure Exam performed portable in patient room. This is a venous duplex using B-mode, color flow and spectral Doppler. The exam was diagnostic. A preliminary report was called and/or faxed to Mikaela - ZACARIAS Heard RN. VL/Venous Duplex US - Christiano Extrem Interpretation Summary Deep veins of the bilateral lower extremities are patent and compressible segme ntally. There is no evidence of bilateral lower extremity deep vein thrombosis. The bilateral great saphenous veins appear patent and compressible segmentally. Ordering Physician: Rebecca Hoover Referring Physician: Wilson Cortez Performed By: Kelvin Vaz RVT
[2023-01-11] MEDS: Magnesium Chloride 64 MG Delay Rel.Tablet 128 MG PO (08:24)
[2023-01-11] MEDS: Isosorbide Mononitrate 30 MG Tablet PO (08:25)
[2023-01-11] MEDS: Aspirin E.C. 81 MG Tablet PO (08:25)
[2023-01-11] MEDS: hydrALAZINE 25 MG Tablet PO (08:25)
[2023-01-11] MEDS: Carvedilol 25 MG Tablet PO ×2 (08:26→16:49)
[2023-01-11] MEDS: guaiFENesin 1,200 MG Tablet 1200 MG PO ×2 (08:26→20:54)
[2023-01-11] MEDS: amLODIPine 5 MG Tablet PO (08:26)
[2023-01-11] MEDS: Furosemide 40 MG Tablet PO (08:27)
[2023-01-11] MEDS: Potassium Chloride Oral Tablet 20 MEQ PO ×2 (08:27→16:48)
[2023-01-11 08:50] LABS: Procalcitonin 0.12 ng/mL (0.00-0.09)
--- NOTE | 2023-01-11 08:56 | EX.PCM.CONCC ---
Assessment & Plan Assessment/Plan (1) Abnormal CT of the chest: PLAN: Plan RECOMMENDATIONS: 1. Initiate scheduled bronchodilators every 4 hours while awake. 2. Aggressive bronchopulmonary hygiene with incentive spirometry and Pep. 3. Low suspicion for an acute pulmonary infectious etiology. 4. Continue home Lasix regimen and electrolyte repletion as needed. 5. Mobilize patient as tolerated. 6. Obtain follow-up chest x-ray tomorrow morning. If atelectasis persists, will proceed with bronchoscopy. IMPRESSIONS: 1. Atelectasis on chest imaging The patient initially presented to the hospital with chest discomfort, shortness of breath, cough and malaise. CT imaging of the chest demonstrated atelectasis of the right middle lobe and partial atelectasis of the left lower lobe. The patient does have a known history of moderate obstructive lung disease and is not currently on any form of a maintenance inhaler regimen. Troponins were negative but BNP was mildly elevated at 608. The findings noted on chest imaging could represent mucus impaction leading to distal airway collapse. Therefore, I would recommend aggressive bronchopulmonary hygiene maneuvers with scheduled nebulized bronchodilators, incentive spirometry and PEP. I will obtain a follow-up chest x-ray in the morning. If the atelectasis remains persistent on follow-up chest x-ray, will proceed with airway evaluation via bronchoscopy. The patient has been tentatively scheduled for 10:30 AM tomorrow morning. He should be made n.p.o. at midnight. 2. Nocturnal hypoxemia Continue 4 L/min of supplemental oxygen nightly, per home recommendations. 3. Chronic tobacco dependency and COPD I personally spent 3 minutes discussing the deleterious effects of continued tobacco use with the patient, including modalities which could be utilized to achieve a smoke-free lifestyle. I do suspect that the patient would likely benefit from being on a long-acting bronchodilator as an outpatient, given his underlying obstructive lung disease. 4. Heart failure with preserved ejection fraction/pulmonary hypertension Continue home diuretic regimen as tolerated by hemodynamics and renal function. This note was generated with [employer] software. It may contain incorrect words, spelling, and punctuation that were not noted in checking the note before signing. HPI Consult Data Date of Consult: 01/11/23 HPI Narrative Reason for Consultation: Atelectasis on chest imaging HPI Narrative: The patient is a 72-year-old male, with a history as outlined below, who presented to the emergency department on January 10 with generalized malaise, chest discomfort, shortness of breath and cough. However, the patient does report the presence of a chronic, productive cough, likely secondary to his longstanding history of tobacco dependency. The patient has known moderate obstructive lung disease, based upon PFTs completed in April 2021. As noted, the patient has a longstanding tobacco abuse history and continues to smoke cigarettes daily. He is currently followed by Dr. Mcgill in the pulmonary medicine clinic. In addition to the aforementioned, the patient was recently identified as having a need for supplemental oxygen at 4 L/min on a nightly basis. Prior echocardiogram from October 2022 demonstrated heart failure with preserved ejection fraction along with pulmonary hypertension with a pulmonary artery systolic pressure of 53 mmHg. The patient is currently being maintained on a diuretic regimen on an outpatient basis. 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 Ironically, the patient is not currently on any form of a long-acting inhaler regimen, but instead only utilizes nebulized albuterol periodically. On presentation to the emergency department, the patient was noted to be afebrile and hemodynamically stable. He was saturating 94% on room air. Initial laboratory evaluation revealed no evidence of a leukocytosis. D-dimer was elevated at 2.7. Chemistry profile was notable for a potassium of 3.1 and creatinine of 2.07. BNP was elevated at 608. In the ED, a noncontrasted chest CT was obtained which revealed posterior lower lobe interstitial lung changes with honeycomb formation along with atelectasis of the right middle lobe and partial atelectasis of the left lower lobe with an associated small pleural effusion. This morning, the patient is resting comfortably in bed. His is present at the bedside. He is maintaining appropriate oxygen saturations on room air. He does report some ongoing chest discomfort. 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) Anxiety Arthritis Back pain Benign paroxysmal positional vertigo Bradycardia Cancer Cardiology follow-up encounter Cephalgia Chest pain Chronic abdominal pain Chronic cough Chronic HFrEF (heart failure with reduced ejection fraction) Chronic renal insufficiency, stage II (mild) CKD (chronic kidney disease) COPD (chronic obstructive pulmonary disease) Depression Depressive disorder Dizziness Easy bruising Essential hypertension Essential hypertension Gastric reflux GERD (gastroesophageal reflux disease) Hiatal hernia High cholesterol History of hiatal hernia History of pain when walking History of stress test History of ulceration Hx of echocardiogram Injury of head and neck Left ventricular apical thrombus Loss of hearing Myocardial infarct, old Non-ischemic cardiomyopathy Overweight (BMI 25.0-29.9) Palpitations Pulmonary fibrosis Shortness of breath on exertion Smoker Stage 2 moderate COPD by GOLD classification Symptomatic bradycardia Syncope Testicular cancer Tobacco abuse Wears dentures Wears glasses Home Medications gabapentin 400 mg capsule 400 mg PO BID pain 04/23/19 [History Last Taken 09/28/22] nitroglycerin 0.4 mg sublingual tablet 0.4 mg sublingual Q5-15M PRN CHEST PAIN 04/23/19 [History Last Taken 04/25/19] atorvastatin 10 mg tablet 10 mg PO DAILY cholesterol 04/27/19 [History Last Taken 09/28/22] mirtazapine 15 mg tablet 15 mg PO QHS Depression 12/03/19 [History Last Taken 09/27/22] albuterol sulfate 0.63 mg/3 mL solution for nebulization 0.63 mg inhalation TID PRN SOB 02/19/20 [History Last Taken 09/28/22] amlodipine 5 mg tablet 5 mg PO DAILY BP 07/09/20 [History Last Taken 09/28/22] carvedilol 25 mg tablet 25 mg PO BID HEART 09/28/22 [History Last Taken 09/28/22] furosemide 40 mg tablet 40 mg PO BID Water Pill 10/29/22 [History Last Taken Unknown] magnesium oxide 400 mg (241.3 mg magnesium) tablet 500 mg PO DAILY Supplimentation 12/02/22 [History Last Taken Unknown] hydralazine 25 mg tablet 25 mg PO DAILY BP 12/24/22 [History Last Taken Unknown] isosorbide mononitrate 30 mg tablet,extended release 24 hr 30 mg PO DAILY SOB 12/24/22 [History Last Taken Unknown] potassium chloride 20 mEq tablet,extended release(part/cryst) 20 meq PO BID Supplimentation 12/24/22 [History Last Taken Unknown] bupropion HCl 150 mg 24 hr tablet, extended release 75 mg PO BID 01/10/23 [History Last Taken Unknown] Allergy/AdvReac Type Severity Reaction Status Date / Time LASHONDA Inhibitors Allergy Severe Angioedema Verified 01/10/23 16:07 lisinopril Allergy Severe Angioedema Verified 01/10/23 16:07 Family History Father Cancer bone AAA (abdominal aortic aneurysm) Grandfather AAA (abdominal aortic aneurysm) Uncle AAA (abdominal aortic aneurysm) Surgical History H/O umbilical hernia repair History of AAA (abdominal aortic aneurysm) repair History of arthroscopic knee surgery History of corneal transplant History of foot surgery History of implantable cardiac defibrillator (ICD) History of knee surgery History of left heart catheterization (02/08/20) History of orchiectomy History of surgery on left wrist History of tonsillectomy Implantable cardioverter-defibrillator (ICD) in situ (08/21/20) Trigeminal neuralgia Social History household members: spouse Smoking Status: Current every day smoker tobacco type: cigarettes and cigars per week: 14 Tobacco: How many years used: 50 alcohol intake: never substance use type: does not use caffeine: Yes Type: coffee Number of servings: 5 ROS ROS Narrative 10 systems were reviewed with pertinent positives as noted in the HPI above. Physical Exam Const alert and no apparent distress General Appearance: cooperative HEENT normocephalic, head/scalp atraumatic and moist oral mucous membranes Eyes PERRL, EOMs intact bilaterally and conjunctivae normal Neck supple General: trachea midline Chest inspection of chest normal Resp normal respiratory effort Auscultation: rales left lower, wheezes and diminished lung sounds Cardio regular rate and regular rhythm GI normal to inspection, nondistended, normoactive bowel sounds Extremity no clubbing, cyanosis or edema Skin no rashes or lesions noted Neuro oriented x3, CN's II-XII intact bilaterally, moves all extremities and no focal motor deficits Psych cooperative and affect normal Lab / Micro Data Result Diagrams: 01/11/23 06:15 01/11/23 06:15 Labs: Laboratory Results - last 24 hr 01/10/23 16:25: WBC 8.3, RBC 3.77 L, Hgb 11.7 L, Hct 36.9 L, MCV 97.9 H, MCH 31.0, MCHC 31.7 L, RDW Std Deviation 59.4 H, RDW Coeff of Karen 16.4 H, Plt Count 164, MPV 11.2, Immature Gran % (Auto) 0.800, Neut % (Auto) 65.9, Lymph % (Auto) 18.7 L, [place] % (Auto) 12.0 H, Eos % (Auto) 2.1, Baso % (Auto) 0.5, Absolute Neuts (auto) 5.4, Absolute Lymphs (auto) 1.54, Nucleated RBC % 0 01/10/23 16:25: Sodium 139, Potassium 3.1 L, Chloride 103, Carbon Dioxide 30.0, Anion Gap 6, BUN 25 H, Creatinine 2.07 H, Estim Creat Clear Calc 31.05, Est GFR (MDRD) Af Amer 41 L, Est GFR (MDRD) Non-Af 34 L, BUN/Creatinine Ratio 12.1, Glucose 150 H, Calcium 8.9, Troponin I High Sens 34 01/10/23 16:25: D-Dimer Quant (PE/DVT) 2.70 H* 01/10/23 16:25: B-Natriuretic Peptide 608.5 H 01/10/23 18:25: Troponin I High Sens 42 01/10/23 22:40: MRSA (PCR) Negative 01/10/23 23:19: Troponin I High Sens 49 01/11/23 06:15: Procalcitonin 0.12 H 01/11/23 06:15: WBC 4.9, RBC 3.79 L, Hgb 12.0 L, Hct 37.2 L, MCV 98.2 H, MCH 31.7, MCHC 32.3, RDW Std Deviation 58.3 H, RDW Coeff of Karen 16.1 H, Plt Count 171, MPV 10.7, Immature Gran % (Auto) 0.800, Neut % (Auto) 89.1 H, Lymph % (Auto) 9.3 L, [place] % (Auto) 0.6, Eos % (Auto) 0.0, Baso % (Auto) 0.2, Absolute Neuts (auto) 4.4, Absolute Lymphs (auto) 0.46 L, Nucleated RBC % 0, Anisocytosis 1+, Macrocytosis RARE 01/11/23 06:15: Sodium 137, Potassium 3.5, Chloride 103, Carbon Dioxide 27.0, Anion Gap 7, BUN 26 H, Creatinine 2.12 H, Estim Creat Clear Calc 30.31, Est GFR (MDRD) Af Amer 40 L, Est GFR (MDRD) Non-Af 33 L, BUN/Creatinine Ratio 12.3, Glucose 281 H, Calcium 8.8 Micro: Microbiology 01/10/23 20:25 Urine, Clean Catch Legionella Antigen - Final 01/10/23 20:25 Urine, Clean Catch Streptococcus pneumoniae Antigen (M - Final 01/10/23 17:15 Nasal Secretion SARS-CoV-2 & FLU Antigen (Rapid) - Final Radiology Impression Chest X-Ray 01/10/23 17:15 IMPRESSION: 1. Persistent infiltrates most marked at the right lung base. 2. Small left pleural effusion. Electronically Signed: Kevin Addison DO at 17:29 EDT Reading Location ID and State: [employer] / [place] Tel [phone], Service support , Chest CT 01/10/23 19:37 IMPRESSION: 1. Complete collapse of the right middle lobe. This accounts for the persistent density seen at the right lung base on plain film. This was not present on the prior CT. 2. Near complete collapse of the left lower lobe with small pleural effusion. Again this was not present on the prior CT. 3. Borderline cardiomegaly with cardiac pacemaker. 4. Stable nonspecific mediastinal lymphadenopathy. Electronically Signed: Kevin Addison DO at 20:06 EDT Reading Location ID and State: [employer] / [place] Tel [phone], Service support , Charges/Coding Visit Charges Inpatient E&M: 87900 Init Hosp L3 Procedures Pulmonary 9xxxx: OTHER ([id number])
[2023-01-11 09:45] LABS: International Normalized Ratio 1.1; Partial Thromboplast Time 34.5 Seconds (24.1-36.2); Prothrombin Time (Protime)PT. 13.7 SECONDS (11.7-14.9)
--- NOTE | 2023-01-11 12:10 | CASEMGMT ---
CHRIST WALKER Face to Face with patient for initial transition planning/care coordination assessment. RN CM introduced self and role at [facility]. Patient lying in bed, alert and oriented, at bedside. Patient willing to participate in assessment and is able to answer all questions appropriately. Care providers, pharmacy, and demographics verified. Patient wishes to discharge home, denies need for home health at this time. Patient states he has no further needs or concerns at this time. CM to follow for discharge planning needs that may arise. PCP: Diego NAVARRO Specialists: Artem national recruiter; Idania, cookie breaker; Kameron, nephrologsit Preferred Pharmacy: [facility] Insurance: [employer] Prescription Benefit: yes Living Will/HPOA: none LNOK: Living Arrangements: Patient lives with in a single story home with 3 steps to enter. Patient states he is independent Transportation: self, DME/HHC: Patient has nebulizer, pulse ox, and home oxygen through [employer] at 4lpm at only. No previous HHC or SNF. Will monitor for increase in home oxygen. Disposition Plan: Patient to discharge home with family support and follow-up plans in place. Kena COLLIER, RN, CM
[2023-01-11] MEDS: Ipratropium/Albuterol Sulfate 3 ML AMPUL.NEB INHALATION ×2 (13:36→19:16)
[2023-01-11] MEDS: Atorvastatin Calcium 10 MG Tablet PO (20:54)
[2023-01-11] MEDS: Acetaminophen 325 MG Tablet 650 MG PO (22:14)
[2023-01-11] MEDS: hydrALAZINE 20 MG/ML Vial 10 MG IV (22:14)
[2023-01-11] MEDS: Senna/Docusate Sodium 1 Tablet 2 TABLET PO (22:14)
[2023-01-12] VITALS (11 sets, daily range): BP systolic 130–162; BP diastolic 60–94; PULSE 53–68; RESP 16–18; TEMP 36.2–36.5; O2SAT 91–97; BMI 25.7
--- NOTE | 2023-01-12 | FLU_PTH ---
PATIENT: INNA AHMADI LOC: [facility] U#:[id number] AGE/SX: 72/M ROOM: [facility] RE01/11/[address]: Dr. Ciro Meng MD : 1950 BED: 1 DIS: 01/12/2023 SPEC #: [id number] RECD: 01/12/23 11:27 STATUS: PACHECO RERehan #: [id number] SHELDON: 01/12/23 00:[address]: Ciro Meng DEPT: CYTOLOGY RECD BY: Carlita Kong ENTERED: 01/12/23 12:03 SP TYPE: Fluid OTHR DR: DO Dr. Eusebio Pierson MD Dr. Kathryn Lee, DO M Gregory Barton, PA Tissues: Bronchus, NOS Procedures: Special Stain Group II Special Stain Group I Surgery Specimen Level IV AFB Stain (control) GMS Stain (control) Cytospin Fluid HEADER OPERATION: Bronchoscopy PRE-OP DIAGNOSIS: Abnormal chest CT TISSUE SUBMITTED: Lung washings DIAGNOSIS CYTOLOGY Lung washings (cytospin and cell block): Negative for malignant cells. Negative for acid-fast bacilli and fungal organisms. See comment. AM:cole 01/13/2023 CYTOLOGY STUDY Slides are reviewed. CYTOLOGY GROSS Received is 10 ml of light pink mucoid fluid labeled with the patient's name and and designated per the requisition as washings. Submitted for cytology preparation including cell block. / cole 01/12/2023 TC:5 CPT: 80685, 08878, 71856 x2
[2023-01-12 04:59] LABS: Absolute Lymphocyte Count 1.65 X10^3/uL (0.83-4.51); Absolute Neutrophil Count 11.2 X10^3/uL (2.0-7.7); Basophil# 0.02 X10^3/uL; Basophil% 0.1 % (0-1); Eosinophil# 0.03 X10^3/uL; Eosinophils% 0.2 % (0-5); Hematocrit 35.5 % (40-54); Hemoglobin 11.2 g/dL (13.0-16.5); Lymphocyte # 1.65 X10^3/ul (0.83-4.51); Lymphocyte % 11.9 % (19-41); Mean Corp Hgb Conc 31.5 g/dL (32-36); Mean Corpuscular Volume 98.3 fL (80-94); Monocyte# 0.87 X10^3/uL; Monocyte% 6.3 % (0-10); NRBC Flagged by Analyzer 0 % (0-5); Neutrophil # 11.16 X10^3/uL (2.7-7.7); Neutrophil % 80.9 % (47-70); Platelet Count 167 K/mm3 (150-450); RBC Distribution Width CV 16.3 % (11.6-14.6); RBC Distribution Width SD 58.6 fl (35.1-43.9); Red Blood Count 3.61 M/mm3 (4.6-6.2); White Blood Count 13.8 K/mm3 (4.4-11.0)
--- NOTE | 2023-01-12 05:00 | RAD_ITS ---
INDICATION: Atelectasis EXAMINATION/TECHNIQUE: X-RAY - XR Chest 1 View COMPARISON: Comparison chest radiograph 01/10/2023. Findings: Single frontal view of the chest. LUNG PARENCHYMA/PLEURA: Stable left greater than right bibasilar airspace disease with small left layering pleural effusion. No pneumothorax. HEART/GREAT VESSELS: Cardiomediastinal silhouette is enlarged. Left chest single-lead pacemaker device in place. BONES: Osseous structures are unremarkable for age. RAD/Chest 1 View (Portable) IMPRESSION: Stable left greater than right bibasilar airspace disease with small left layering pleural effusion. Recommend follow-up to resolution. Electronically Signed: Eric Hare MD at 5:22 EDT ,
[2023-01-12 05:06] LABS: International Normalized Ratio 1.1; Prothrombin Time (Protime)PT. 13.6 SECONDS (11.7-14.9)
[2023-01-12 05:19] LABS: Anion Gap 6 (5-15); BUN 37 mg/dL (7-18); BUN/Creat Ratio 17.8 RATIO (10-20); Calcium,Total 8.7 mg/dL (8.5-10.1); Chloride 104 mmol/L (98-107); Creatinine, Serum 2.08 mg/dL (0.70-1.30); EST Glomerular Filtration Rate 34 mL/min (>60); Est Glom Filt Rate - Afr Amer 41 mL/min (>60); Glucose 161 mg/dL (74-106); Potassium 3.6 mmol/L (3.5-5.1); Sodium Level 138 mmol/L (136-145)
--- NOTE | 2023-01-12 07:57 | PCM.PN.HOSP ---
Reason for Visit Reason for Visit: Diagnoses Dyspnea, unspecified (01/11/23) Chest pain, unspecified (01/11/23) Abnormal findings on diagnostic imaging of other specified body structures (01/11/23) Objective Data Objective Data Vital Signs: Vital Signs Temp Pulse Resp BP Pulse Ox O2 Del Method O2 Flow Rate 97.7 F L 68 17 149/94 H 93 Nasal Cannula 2 01/12/23 03:00 01/12/23 03:00 01/12/23 03:00 01/12/23 03:00 01/12/23 03:00 01/12/23 07:16 01/12/23 07:16 Oxygen Flow Rate (L/min) 2 Oxygen Delivery Method Nasal Cannula Weight: 164 lb 7.437 oz Body Mass Index (BMI) 25.7 Intake & Output: Intake and Output for Last 24 Hours 01/10/23 01/11/23 01/12/23 23:59 23:59 23:59 Intake Total 100 / 100 680 / 680 Output Total 0 / 0 Balance 100 / 100 680 / 680 Lab / Micro Data Result Diagrams: 01/12/23 04:49 01/12/23 04:49 Labs: Laboratory Results - last 24 hr 01/11/23 06:15: Procalcitonin 0.12 H 01/11/23 09:20: PT 13.7, INR 1.1, APTT 34.5 01/12/23 04:49: WBC 13.8 H, RBC 3.61 L, Hgb 11.2 L, Hct 35.5 L, MCV 98.3 H, MCH 31.0, MCHC 31.5 L, RDW Std Deviation 58.6 H, RDW Coeff of Karen 16.3 H, Plt Count 167, MPV 11.0, Immature Gran % (Auto) 0.600, Neut % (Auto) 80.9 H, Lymph % (Auto) 11.9 L, Duc[place]ne % (Auto) 6.3, Eos % (Auto) 0.2, Baso % (Auto) 0.1, Absolute Neuts (auto) 11.2 H, Absolute Lymphs (auto) 1.65, Nucleated RBC % 0 01/12/23 04:49: Sodium 138, Potassium 3.6, Chloride 104, Carbon Dioxide 28.0, Anion Gap 6, BUN 37 H, Creatinine 2.08 H, Estim Creat Clear Calc 30.90, Est GFR (MDRD) Af Amer 41 L, Est GFR (MDRD) Non-Af 34 L, BUN/Creatinine Ratio 17.8, Glucose 161 H, Calcium 8.7 01/12/23 04:49: PT 13.6, INR 1.1, APTT 31.0 Micro: Microbiology 01/10/23 23:40 Sputum, Expectorated/Coughed Gram Stain - Final 01/10/23 20:25 Urine, Clean Catch Legionella Antigen - Final 01/10/23 20:25 Urine, Clean Catch Streptococcus pneumoniae Antigen (M - Final 01/10/23 17:15 Nasal Secretion SARS-CoV-2 & FLU Antigen (Rapid) - Final Radiography Diagnostic Testing: Radiology Impression Venous Doppler Study 01/11/23 07:55 Interpretation Summary Deep veins of the bilateral lower extremities are patent and compressible segmentally. There is no evidence of bilateral lower extremity deep vein thrombosis. The bilateral great saphenous veins appear patent and compressible segmentally. Ordering Physician: Rebecac Hoover Referring Physician: Wilson Cortez Performed By: Kelvin Vaz, T Chest X-Ray 01/12/23 05:00 IMPRESSION: Stable left greater than right bibasilar airspace disease with small left layering pleural effusion. Recommend follow-up to resolution. Electronically Signed: Eric Hare MD at 5:22 EDT , Assessment & Plan Assessment/Plan (1) Dyspnea: (2) Chest pain: (3) Abnormal CT of the chest: PLAN: Plan Atypical chest pain -Patient had a unremarkable cardiac catheterization 3 years ago and a negative stress test on 11/11/2022 -Cardiac enzymes were cycled and unremarkable. -Recent echocardiogram was performed and showed an EF of 50% with borderline global hypokinesis of the LV, mild concentric LVH, moderate left atrial enlargement and mild right atrial enlargement as well as stage II diastolic dysfunction and a pulmonary systolic pressure of 53 mmHg -No further cardiac work-up at this time Elevated D-dimer: Venous duplex of LEs negative for acute DVT bilaterally. Patient empirically had 1 dose of enoxaparin in ED. Anticoagulation on hold due to proposed bronchoscopy today. VQ scan was discontinued as it will be an abnormal study given abnormal lung parenchyma on CT chest. - Abnormal CT of the chest: CT chest showed right middle lobe consolidation near collapse and left lower lobe consolidation. DuoNeb and as needed albuterol. COVID and flu test negative. Urinary antigens are negative. Incentive spirometry, PEP and Mucinex. Pulm. Lead Software Engineer is consulted with plan for possible bronchoscopy. Hypokalemia -Resolved with replacement yesterday CKD stage IV -Baseline serum creatinine appears to be between 1.75 and 2 -Current serum creatinine is 2.12 -Repeat BMP in a.m. -Avoid nephrotoxins -Patient has solitary kidney -Patient follows with Dr. Melo as an outpatient Chronic nocturnal hypoxia -Recent polysomnography ruled out obstructive sleep apnea but patient does require supplemental oxygen with sleeping -4 L nocturnally COPD Gold stage 3-severe -FEV1 is 60% predicted -Patient has upcoming pulmonary function test and outpatient walking oximetry to be performed -Follow-up with pulmonary medicine arranged for February -Patient is on as needed nebulized at home now until further work-up can be completed -Recommend tobacco cessation -May need to consider adding inhaler therapy at discharge -Pulmonary medicine is following History of nonischemic cardiomyopathy -Echocardiogram from 2019 showed severe global left hypokinesis with an EF of 30 to 35% and stage II diastolic dysfunction -Most recent echocardiogram from 11/11/2022 showed improvement in his EF to 50% with borderline global left hypokinesis, moderate left atrial enlargement, mild right atrial enlargement, stage II diastolic function and pulmonary artery systolic pressure 53 mmHg -Continue carvedilol 25 mg p.o. twice daily -Continue furosemide 40 mg p.o. twice daily -Continue hydralazine 25 g daily -Continue isosorbide mononitrate at 30 mg daily -It appears that the patient has had improvement with appropriate goal-directed therapy -Patient does have ICD in place but has never fired -Follow-up with cardiology as directed at last appointment-10/29/2022 History of AAA -Status post repair -No current issues Hypertension -Continue Lasix, carvedilol, hydralazine, isosorbide mononitrate, amlodipine -As needed hydralazine if needed for systolic pressure greater than 160 -Blood pressures have been elevated and may be the etiology for some of his chest pain--> will reassess after he has been doses home a.m. blood pressure medicine -If BP remains elevated I will likely uptitrate his hydralazine as he is only on 25 mg daily Hyperlipidemia -Continue atorvastatin 10 mg daily Neuropathy -Continue gabapentin Depression -Continue mirtazapine DVT prophylaxis -Heparin 3 times daily CODE STATUS -Full code
--- NOTE | 2023-01-12 08:37 | PCM.PN.INT ---
Assessment & Plan Assessment/Plan (1) Abnormal CT of the chest: PLAN: Plan RECOMMENDATIONS: 1. Continue nebulized bronchodilators every 4 hours while awake. 2. Aggressive bronchopulmonary hygiene with incentive spirometry and Pep. 3. Continue home Lasix regimen and electrolyte repletion as needed. 4. Mobilize patient as tolerated. 5. Proceed with bronchoscopy this morning for airway evaluation +/- BAL with biopsies. IMPRESSIONS: 1. Atelectasis on chest imaging The patient initially presented to the hospital with chest discomfort, shortness of breath, cough and malaise. CT imaging of the chest demonstrated atelectasis of the right middle lobe and partial atelectasis of the left lower lobe. The patient does have a known history of moderate obstructive lung disease and is not currently on any form of a maintenance inhaler regimen. Troponins were negative but BNP was mildly elevated at 608. The findings noted on chest imaging could represent mucus impaction leading to distal airway collapse. Therefore, plan to continue aggressive bronchopulmonary hygiene maneuvers along with scheduled bronchodilators. The patient is going to be taken for airway evaluation via bronchoscopy this morning, with tentative plans for BAL and/or endobronchial biopsies if any abnormality is identified. The patient is in agreement to proceed. 2. Nocturnal hypoxemia Continue 4 L/min of supplemental oxygen nightly, per home recommendations. 3. Chronic tobacco dependency and COPD Tobacco cessation counseling was provided. I do suspect that the patient would likely benefit from being on a long-acting bronchodilator as an outpatient, given his underlying obstructive lung disease. 4. Heart failure with preserved ejection fraction/pulmonary hypertension Continue home diuretic regimen as tolerated by hemodynamics and renal function. This note was generated with [employer] dictation software. It may contain incorrect words, spelling, and punctuation that were not noted in checking the note before signing. Subjective Subjective The patient was seen and examined at the bedside this morning. Events from the last 24 hours have been reviewed. The patient is currently afebrile, hemodynamically stable and maintaining appropriate oxygen saturations on room air. He denies any resting shortness of breath this morning. He is agreeable to proceed with bronchoscopy as scheduled. Objective Data Objective Data The patient's most recent lab work, culture data and imaging studies have all been personally reviewed. Vital Signs: Vital Signs Temp Pulse Resp BP Pulse Ox O2 Del Method O2 Flow Rate 97.6 F L 64 18 159/87 H 95 Room Air 2 01/12/23 08:17 01/12/23 08:17 01/12/23 08:17 01/12/23 08:17 01/12/23 08:17 01/12/23 08:17 01/12/23 07:16 Oxygen Flow Rate (L/min) 2 Oxygen Delivery Method Room Air Weight: 164 lb 7.437 oz Body Mass Index (BMI) 25.7 Intake & Output: Intake and Output for Last 24 Hours 01/10/23 01/11/23 01/12/23 23:59 23:59 23:59 Intake Total 100 / 100 680 / 680 Output Total 0 / 0 Balance 100 / 100 680 / 680 Lab / Micro Data Attestation: I reviewed the patient's lab results. Result Diagrams: 01/12/23 04:49 01/12/23 04:49 Labs: Laboratory Results - last 24 hr 01/11/23 06:15: Procalcitonin 0.12 H 01/11/23 09:20: PT 13.7, INR 1.1, APTT 34.5 01/12/23 04:49: WBC 13.8 H, RBC 3.61 L, Hgb 11.2 L, Hct 35.5 L, MCV 98.3 H, MCH 31.0, MCHC 31.5 L, RDW Std Deviation 58.6 H, RDW Coeff of Karen 16.3 H, Plt Count 167, MPV 11.0, Immature Gran % (Auto) 0.600, Neut % (Auto) 80.9 H, Lymph % (Auto) 11.9 L, [place] % (Auto) 6.3, Eos % (Auto) 0.2, Baso % (Auto) 0.1, Absolute Neuts (auto) 11.2 H, Absolute Lymphs (auto) 1.65, Nucleated RBC % 0 01/12/23 04:49: Sodium 138, Potassium 3.6, Chloride 104, Carbon Dioxide 28.0, Anion Gap 6, BUN 37 H, Creatinine 2.08 H, Estim Creat Clear Calc 30.90, Est GFR (MDRD) Af Amer 41 L, Est GFR (MDRD) Non-Af 34 L, BUN/Creatinine Ratio 17.8, Glucose 161 H, Calcium 8.7 01/12/23 04:49: PT 13.6, INR 1.1, APTT 31.0 Micro: Microbiology 01/10/23 23:40 Sputum, Expectorated/Coughed Gram Stain - Final 01/10/23 20:25 Urine, Clean Catch Legionella Antigen - Final 01/10/23 20:25 Urine, Clean Catch Streptococcus pneumoniae Antigen (M - Final 01/10/23 17:15 Nasal Secretion SARS-CoV-2 & FLU Antigen (Rapid) - Final Radiography Diagnostic Testing: Radiology Impression Venous Doppler Study 01/11/23 07:55 Interpretation Summary Deep veins of the bilateral lower extremities are patent and compressible segmentally. There is no evidence of bilateral lower extremity deep vein thrombosis. The bilateral great saphenous veins appear patent and compressible segmentally. Ordering Physician: Rebecca Hoover Referring Physician: Wilson Cortez Performed By: Kelvin Vaz, T Chest X-Ray 01/12/23 05:00 IMPRESSION: Stable left greater than right bibasilar airspace disease with small left layering pleural effusion. Recommend follow-up to resolution. Electronically Signed: Eric Hare MD at 5:22 EDT , Physical Exam Const alert and no apparent distress General Appearance: cooperative HEENT normocephalic, head/scalp atraumatic and moist oral mucous membranes Eyes PERRL, EOMs intact bilaterally and conjunctivae normal Neck supple General: trachea midline Chest inspection of chest normal Resp normal respiratory effort Auscultation: rales left lower and diminished lung sounds; Negative for rhonchi or wheezes Cardio regular rate and regular rhythm GI normal to inspection, nondistended, normoactive bowel sounds Extremity no clubbing, cyanosis or edema Skin no rashes or lesions noted Neuro oriented x3, CN's II-XII intact bilaterally, moves all extremities and no focal motor deficits Psych cooperative and affect normal Charges/Coding Visit Charges Inpatient E&M: 17573 Subs Hosp L2
[2023-01-12] MEDS: Lactated Ringers 1,000 ML 15 ML IV (09:42)
[2023-01-12] MEDS: Ipratropium/Albuterol Sulfate 3 ML AMPUL.NEB INHALATION (10:07)
[2023-01-12] MEDS: Carvedilol 25 MG Tablet PO (10:11)
[2023-01-12] MEDS: Lidocaine 2% (5ml sdv) 5 ML VIAL.MPF (11:01)
[2023-01-12] MEDS: Lidocaine Jelly 2% 20 ML Syringe (URO-JET) 1 APPLIC (11:01)
--- NOTE | 2023-01-12 11:14 | OP.BRONCH_ITS ---
Patient Name: Toedoro Wolfe Procedure Date: 01/12/2023 10:42 AM Date of : 1950 Age: 72 Procedure: Bronchoscopy Indications: Abnormal CT scan of chest Providers: Charli Mccartney MD Medicines: Monitored Anesthesia Care Complications: No immediate complications Procedure: Pre-Anesthesia Assessment: - A History and Physical has been performed. Patient meds and allergies have been reviewed. The risks and benefits of the procedure and the sedation options and risks were discussed with the patient. All questions were answered and informed consent was obtained. Patient identification and proposed procedure were verified prior to the procedure by the physician and the nurse in the procedure room. Mental Status Examination: alert and oriented. Airway Examination: normal oropharyngeal airway. Respiratory Examination: poor air movement. CV Examination: normal. ASA Grade Assessment: III - A patient with severe systemic disease. After reviewing the risks and benefits, the patient was deemed in satisfactory condition to undergo the procedure. The anesthesia plan was to use monitored anesthesia care (MAC). Immediately prior to administration of medications, the patient was re-assessed for adequacy to receive sedatives. The heart rate, respiratory rate, oxygen saturations, blood pressure, adequacy of pulmonary ventilation, and response to care were monitored throughout the procedure. The physical status of the patient was re-assessed after the procedure. After I obtained informed consent, the scope was passed under direct vision. Throughout the procedure, the patient's blood pressure, pulse, and oxygen saturations were monitored continuously. The bronchoscope was introduced through the mouth and advanced to the tracheobronchial tree. The procedure was accomplished without difficulty. The patient tolerated the procedure well. Findings: Bilateral Lung Abnormalities: Copious, mucopurulent secretions were found throughout the tracheobronchial tree. They were partially obstructing the airway. Therapeutic suctioning was performed. Mucus was removed from the airway and the airway was cleared. The suctioned material was sent for cell count, bacterial culture, viral smears & culture, and fungal & AFB analysis and cytology. No endobronchial lesions were identified. Impression: - Abnormal CT scan of chest - Copious, mucopurulent secretions were found throughout the tracheobronchial tree. - Therapeutic suctioning was performed. Recommendation: - Await washing results. Procedure Code(s): --- Professional --- 39834, Bronchoscopy, rigid or flexible, including fluoroscopic guidance, when performed; with therapeutic aspiration of tracheobronchial tree, initial Diagnosis Code(s): --- Professional --- R09.89, Other specified symptoms and signs involving the circulatory and respiratory systems R93.8, Abnormal findings on diagnostic imaging of other specified body structures CPT copyright 2017 [employer]. All rights reserved. The codes documented in this report are preliminary and upon inseam leveler review may be revised to meet current compliance requirements. DO Charli Fam MD 01/12/2023 11:14:04 AM This report has been signed electronically. Number of Addenda: 0 Note Initiated On: 01/12/2023 10:42 AM
[2023-01-12 11:32] LABS: Cytology, Washings SEE PATHOLOGY REPORT
[2023-01-12] MEDS: buPROPion 75 MG Tablet PO (12:59)
[2023-01-12] MEDS: Gabapentin 400 MG Capsule PO (12:59)
[2023-01-12] MEDS: Isosorbide Mononitrate 30 MG Tablet PO (13:00)
[2023-01-12] MEDS: Magnesium Chloride 64 MG Delay Rel.Tablet 128 MG PO (13:00)
[2023-01-12] MEDS: guaiFENesin 1,200 MG Tablet 1200 MG PO (13:00)
[2023-01-12] MEDS: Furosemide 40 MG Tablet PO (13:00)
[2023-01-12] MEDS: Potassium Chloride Oral Tablet 20 MEQ PO (13:00)
[2023-01-12] MEDS: hydrALAZINE 25 MG Tablet PO (13:00)
[2023-01-12] MEDS: amLODIPine 5 MG Tablet PO (13:00)
--- NOTE | 2023-01-12 13:53 | DCINST_ITS ---
Discharge Instructions Diet Discharge Diet: 2000 mg Sodium Diet Activity Discharge Activity: Return to Normal Activity Weight Bearing Status: Weight bearing as tolerated Dressing / Incision Call your doctor if you observe: Fever of 101 or Higher, Coldness, Increased Pain, Numbness or Tingling, Change in Color, Inability to urinate, Inability to have a bowel movement, Shortness of breath, Dizziness, Fainting spells, Swelling in the ankles, Chest pain, Prolonged hiccupping, Increased palpitations (irregular heartbeat) and Calf discomfort Follow Up Care When: IN 2 WEEKS Test Results: Test results from this visit will be discussed in further detail at your follow- up appointment, if applicable. Discharge Plan Admission Admit Date/Time: 01/11/23 08:27 Primary Reason for Your Visit: Atelectasis due to mucous filling/plugging. Attending Provider: Ciro Meng Primary Care Provider: Christopher Cortez Consulting Providers: Eusebio Oconnell ; Charli Mccartney ; Rebecca Hoover Discharge Orders/Prescriptions Prescriptions: New ipratropium-albuterol 0.5 mg-3 mg(2.5 mg base)/3 mL Solution For Nebulization 3 ml inhalation Q4HWA.RT 30 Days Qty: 90 0RF Mucus Relief ER 1,200 mg Tablet Extended Release 12hr 1,200 mg PO BID 7 Days Qty: 14 0RF Continued nitroglycerin 0.4 mg tablet, sublingual 0.4 mg SUBLINGUAL Q5-15M PRN (Reason: CHEST PAIN) mirtazapine 15 mg tablet 15 mg PO QHS albuterol sulfate 0.63 mg/3 mL solution for nebulization 0.63 mg INHALATION TID PRN (Reason: SOB) amlodipine 5 mg tablet 5 mg PO DAILY furosemide 40 mg tablet 40 mg PO BID Hold Instructions: Resume on 10/02/22. Rx Instructions: May take twice daily if needed. magnesium oxide 400 mg (241.3 mg magnesium) tablet 500 mg PO DAILY gabapentin 400 mg capsule 400 mg PO BID Label Comments: neuropathy atorvastatin 10 MG tablet 10 mg PO DAILY carvedilol 25 mg tablet 25 mg PO BID isosorbide mononitrate 30 mg tablet extended release 24 hr 30 mg PO DAILY hydralazine 25 mg tablet 25 mg PO DAILY potassium chloride 20 mEq tablet,ER particles/crystals 20 meq PO BID bupropion HCl 150 mg tablet extended release 24 hr 75 mg PO BID Label Comments: TAKE 1 TABLET BY MOUTH ONCE DAILY Referrals / Follow Up: Ramiro Thompson MD [Med Staff - Active Staff] - Within 1 Month Charli Mccartney DO [Med Staff - Active Staff] - Within 2 Weeks Archie Flores MD [Non-Staff] - Christopher Cortez, PA [Primary Care Provider] - Disposition Disposition (needs filled in before D/C Order can be placed): Home, Self Care
--- NOTE | 2023-01-12 14:02 | PCM.DC.SUM ---
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 Patient history of COPD with moderate obstructive ventilatory abnormality and currently smokes. 1. Atypical chest tightness/heaviness: -Patient had a unremarkable cardiac catheterization 3 years ago and a negative stress test on 11/11/2022 -Cardiac enzymes were cycled and unremarkable. -Recent echocardiogram was performed and showed an EF of 50% with borderline global hypokinesis of the LV, mild concentric LVH, moderate left atrial enlargement and mild right atrial enlargement as well as stage II diastolic dysfunction and a pulmonary systolic pressure of 53 mmHg -No further cardiac work-up at this time 2.Atelectasis on chest CT scan and Elevated D-dimer: Venous duplex of LEs negative for acute DVT bilaterally. Patient empirically had 1 dose of enoxaparin in ED. Anticoagulation on hold due to proposed bronchoscopy today. VQ scan was discontinued as it will be an abnormal study given abnormal lung parenchyma on CT chest. Patient had CT chest which showed RML consolidation near collapse and left lower lobe consolidation. COVID and flu test negative. Urinary antigens are negative. Incentive spirometry, PEP and Mucinex. Active Directory Engineer was consulted. Patient had bronchoscopy today which showed copious mucopurulent secretion throughout the tracheobronchial tree with therapeutic suctioning was done. BAL was sent. Advised to continue incentive spirometry, Pep Mucinex at home and follow-up with Dr. Mccartney in 2 weeks. Hypokalemia -Resolved with replacement yesterday Microbiology Past 72 Hours 01/12/23 Unknown Wash - Bronchial Wash Gram Stain - Final 01/10/23 23:40 Sputum, Expectorated/Coughed Gram Stain - Final 01/10/23 23:40 Sputum, Expectorated/Coughed Respiratory Culture - Preliminary Appears to be normal respiratory radhika. Further studies to follow. 01/10/23 20:25 Urine, Clean Catch Legionella Antigen - Final 01/10/23 20:25 Urine, Clean Catch Streptococcus pneumoniae Antigen (M - Final 01/10/23 17:15 Nasal Secretion SARS-CoV-2 & FLU Antigen (Rapid) - Final Laboratory Results 01/12/23 04:49: WBC 13.8 H, RBC 3.61 L, Hgb 11.2 L, Hct 35.5 L, MCV 98.3 H, MCH 31.0, MCHC 31.5 L, RDW Std Deviation 58.6 H, RDW Coeff of Karen 16.3 H, Plt Count 167, MPV 11.0, Immature Gran % (Auto) 0.600, Neut % (Auto) 80.9 H, Lymph % (Auto) 11.9 L, [place] % (Auto) 6.3, Eos % (Auto) 0.2, Baso % (Auto) 0.1, Absolute Neuts (auto) 11.2 H, Absolute Lymphs (auto) 1.65, Nucleated RBC % 0 01/12/23 04:49: Sodium 138, Potassium 3.6, Chloride 104, Carbon Dioxide 28.0, Anion Gap 6, BUN 37 H, Creatinine 2.08 H, Estim Creat Clear Calc 30.90, Est GFR (MDRD) Af Amer 41 L, Est GFR (MDRD) Non-Af 34 L, BUN/Creatinine Ratio 17.8, Glucose 161 H, Calcium 8.7 01/12/23 04:49: PT 13.6, INR 1.1, APTT 31.0 CKD stage IV -Baseline serum creatinine appears to be between 1.75 and 2 -Current serum creatinine is 2.12. Patient on furosemide 40 mg twice daily -Avoid nephrotoxins -Patient has solitary kidney -Patient follows with Dr. Melo as an outpatient. Advised outpatient BMP magnesium and phosphorus in 1 week and follow-up with research executive. Chronic nocturnal hypoxia -Recent polysomnography ruled out obstructive sleep apnea but patient does require supplemental oxygen with sleeping -4 L nocturnally COPD Gold stage 3-severe with moderate obstructive ventilatory impairment. -FEV1 is 60% predicted -Patient has upcoming pulmonary function test and outpatient walking oximetry to be performed -Patient is on as needed nebulized at home now until further work-up can be completed -Recommend tobacco cessation. Patient discharged on DuoNeb every 4 hourly while awake scheduled.. History of nonischemic cardiomyopathy -Echocardiogram from 2019 showed severe global left hypokinesis with an EF of 30 to 35% and stage II diastolic dysfunction -Most recent echocardiogram from 11/11/2022 showed improvement in his EF to 50% with borderline global left hypokinesis, moderate left atrial enlargement, mild right atrial enlargement, stage II diastolic function and pulmonary artery systolic pressure 53 mmHg -Continue carvedilol 25 mg p.o. twice daily -Continue furosemide 40 mg p.o. twice daily -Continue hydralazine 25 g daily -Continue isosorbide mononitrate at 30 mg daily -It appears that the patient has had improvement with appropriate goal-directed therapy -Patient does have ICD in place but has never fired -Follow-up with cardiology as directed at last appointment-10/29/2022 History of AAA -Status post repair -No current issues Hypertension -Continue Lasix, carvedilol, hydralazine, isosorbide mononitrate, amlodipine -As needed hydralazine if needed for systolic pressure greater than 160 -Oral hydralazine uptitrated. Hyperlipidemia -Continue atorvastatin 10 mg daily Neuropathy -Continue gabapentin Depression -Continue mirtazapine DVT prophylaxis -Heparin 3 times daily CODE STATUS -Full code Discharge medication reconciliation done. Discharge follow-up instructions completed. Discharge process discussed with the patient and all questions were answered to patient's satisfaction. Total time spent, exact 35 minutes on discharge meds reconciliation, examination, coordination of care with nurses and ancillary staff, review of imaging and blood test and discussion with the patient on follow-up instructions. Medications at Discharge Home Medications gabapentin 400 mg capsule 400 mg PO BID pain 04/23/19 nitroglycerin 0.4 mg sublingual tablet 0.4 mg sublingual Q5-15M PRN CHEST PAIN 04/23/19 atorvastatin 10 mg tablet 10 mg PO DAILY cholesterol 04/27/19 mirtazapine 15 mg tablet 15 mg PO QHS Depression 12/03/19 albuterol sulfate 0.63 mg/3 mL solution for nebulization 0.63 mg inhalation TID PRN SOB 02/19/20 amlodipine 5 mg tablet 5 mg PO DAILY BP 07/09/20 carvedilol 25 mg tablet 25 mg PO BID HEART 12/06/22 furosemide 40 mg tablet 40 mg PO BID Water Pill 10/29/22 magnesium oxide 400 mg (241.3 mg magnesium) tablet 500 mg PO DAILY Supplimentation 12/02/22 isosorbide mononitrate 30 mg tablet,extended release 24 hr 30 mg PO DAILY SOB 12/24/22 potassium chloride 20 mEq tablet,extended release(part/cryst) 20 meq PO BID Supplimentation 12/24/22 bupropion HCl 150 mg 24 hr tablet, extended release 75 mg PO BID mental health 01/10/23 guaifenesin 1,200 mg tablet, extended release 12 hr (Mucus Relief ER) 1,200 mg PO BID 7 days #14 tabs 01/12/23 hydralazine 50 mg tablet 50 mg PO BID 30 days #60 tabs 01/12/23 ipratropium 0.5 mg-albuterol 3 mg (2.5 mg base)/3 mL nebulization soln 3 ml inhalation Q4HWA.RT 30 days #90 mL 01/12/23 Physical Exam Narrative Seen and examined after the bronchoscopy in the morning today. Patient shortness of breath is much improved. No chest pain. Patient having lunch. Denies problems swallowing or odynophagia or throat pain. Physical exam General: Alert, Oriented x3, Cooperative HEENT: Atraumatic, PERRLA, EOMI, Normocephalic Oral: No Gingival or Mucosal Lesions/ Ulcerations Neck: Supple, No JVD, Negative Carotid Bruits Lungs: Air entry diminished in bilateral lung bases. No crepitation/rhonchi. No tachypnea Cardiovascular: Regular rate, Regular Rhythm, Normal S1, Normal S2, No murmurs Abdomen: Bowel Sounds Present, Soft, Non Tender, Non-Distended : No renal angle tenderness. No suprapubic tenderness. Extremities: No edema, Capillary Refill Less than 3 Seconds Skin: No rashes, No breakdown Musculoskeletal: No Tenderness to Palpation of Joints or Extremities. ROM full and adequate. Neurological: Cranial nerves II-XII grossly intact, DTR 2+/4 and Symmetrical, Neuro grossly intact Psych/Mental Status: Normal Affect, Appropriate. Weight / BMI Weight Weight: 164 lb 7.437 oz Body Mass Index (BMI) 25.7 ABG / Lab / Microbiology Data Result Diagrams: 01/12/23 04:49 01/12/23 04:49 Laboratory: Laboratory Results - last 24 hr 01/12/23 04:49: WBC 13.8 H, RBC 3.61 L, Hgb 11.2 L, Hct 35.5 L, MCV 98.3 H, MCH 31.0, MCHC 31.5 L, RDW Std Deviation 58.6 H, RDW Coeff of Karen 16.3 H, Plt Count 167, MPV 11.0, Immature Gran % (Auto) 0.600, Neut % (Auto) 80.9 H, Lymph % (Auto) 11.9 L, [place] % (Auto) 6.3, Eos % (Auto) 0.2, Baso % (Auto) 0.1, Absolute Neuts (auto) 11.2 H, Absolute Lymphs (auto) 1.65, Nucleated RBC % 0 01/12/23 04:49: Sodium 138, Potassium 3.6, Chloride 104, Carbon Dioxide 28.0, Anion Gap 6, BUN 37 H, Creatinine 2.08 H, Estim Creat Clear Calc 30.90, Est GFR (MDRD) Af Amer 41 L, Est GFR (MDRD) Non-Af 34 L, BUN/Creatinine Ratio 17.8, Glucose 161 H, Calcium 8.7 01/12/23 04:49: PT 13.6, INR 1.1, APTT 31.0 01/12/23 : Fluid Source Cancelled, Fluid Color Cancelled, Fluid Appearance Cancelled, Fluid WBC Cancelled, Fluid RBC Cancelled, Fluid Tot Cell Count Cancelled, Fld Polynuclear WBCs # Cancelled, Fld Polynuclear WBCs % Cancelled, Fluid Mononuclear WBCs Cancelled, Fld Mononuclear WBCs % Cancelled, Fluid Neutrophils Cancelled, Fluid Lymphocytes Cancelled, Fluid Monocytes Cancelled, Fluid Plasma Cells Cancelled, Fluid Macrophages Cancelled, Fld Mesothelial Cells Cancelled, Fluid Other Cells Cancelled, Fl Pathologist Comment Cancelled, Fluid Comment 2 Cancelled Microbiology: Microbiology 01/12/23 Unknown Wash - Bronchial Wash Gram Stain - Final 01/10/23 23:40 Sputum, Expectorated/Coughed Gram Stain - Final 01/10/23 23:40 Sputum, Expectorated/Coughed Respiratory Culture - Preliminary Appears to be normal respiratory radhika. Further studies to follow. 01/10/23 20:25 Urine, Clean Catch Legionella Antigen - Final 01/10/23 20:25 Urine, Clean Catch Streptococcus pneumoniae Antigen (M - Final 01/10/23 17:15 Nasal Secretion SARS-CoV-2 & FLU Antigen (Rapid) - Final Radiography Diagnostic Testing: Radiology Impression Venous Doppler Study 01/11/23 07:55 Interpretation Summary Deep veins of the bilateral lower extremities are patent and compressible segmentally. There is no evidence of bilateral lower extremity deep vein thrombosis. The bilateral great saphenous veins appear patent and compressible segmentally. Ordering Physician: Rebecca Hoover Referring Physician: Wilson Cortez Performed By: Kelvin Vaz, T Chest X-Ray 01/12/23 05:00 IMPRESSION: Stable left greater than right bibasilar airspace disease with small left layering pleural effusion. Recommend follow-up to resolution. Electronically Signed: Eric Hare MD at 5:22 EDT , D/C Instructions Discharge Diet: 2000 mg Sodium Diet Weight Bearing Status: Weight bearing as tolerated Call your doctor if you observe: Fever of 101 or Higher, Coldness, Increased Pain, Numbness or Tingling, Change in Color, Inability to urinate, Inability to have a bowel movement, Shortness of breath, Dizziness, Fainting spells, Swelling in the ankles, Chest pain, Prolonged hiccupping, Increased palpitations (irregular heartbeat) and Calf discomfort When: IN 2 WEEKS Meaningful Use Info Meaningful Use Diagnoses (Choose all that apply): None applicable Discharge Plan Admission Admit Date/Time: 01/11/23 08:27 Primary Reason for Your Visit: Atelectasis due to mucous filling/plugging. Attending Provider: Ciro Meng Primary Care Provider: Christopher Cortez Consulting Providers: Eusebio Oconnell ; Charli Mccartney ; Rebecca Hoover Instructions Additional Instructions / Restrictions: Advised follow-up BMP and magnesium after 1 week as patient is on diuretic and follow with PCP Patient Problems: Altered Health Status related to Hospitalization Patient Goals: *Optimal Level of Health *Keep Appointments *Medication Compliance *Remain Safe Discharge Orders/Prescriptions Prescriptions: New ipratropium-albuterol 0.5 mg-3 mg(2.5 mg base)/3 mL Solution For Nebulization 3 ml inhalation Q4HWA.RT 30 Days Qty: 90 0RF Mucus Relief ER 1,200 mg Tablet Extended Release 12hr 1,200 mg PO BID 7 Days Qty: 14 0RF hydralazine 50 mg tablet 50 mg PO BID 30 Days Qty: 60 0RF Rx Instructions: Hold for SBP less than 130 mmHg Continued nitroglycerin 0.4 mg tablet, sublingual 0.4 mg SUBLINGUAL Q5-15M PRN (Reason: CHEST PAIN) mirtazapine 15 mg tablet 15 mg PO QHS albuterol sulfate 0.63 mg/3 mL solution for nebulization 0.63 mg INHALATION TID PRN (Reason: SOB) amlodipine 5 mg tablet 5 mg PO DAILY furosemide 40 mg tablet 40 mg PO BID Hold Instructions: Resume on 10/02/22. Rx Instructions: May take twice daily if needed. magnesium oxide 400 mg (241.3 mg magnesium) tablet 500 mg PO DAILY gabapentin 400 mg capsule 400 mg PO BID Label Comments: neuropathy atorvastatin 10 MG tablet 10 mg PO DAILY carvedilol 25 mg tablet 25 mg PO BID isosorbide mononitrate 30 mg tablet extended release 24 hr 30 mg PO DAILY potassium chloride 20 mEq tablet,ER particles/crystals 20 meq PO BID bupropion HCl 150 mg tablet extended release 24 hr 75 mg PO BID Label Comments: TAKE 1 TABLET BY MOUTH ONCE DAILY Discontinued hydralazine 25 mg tablet 25 mg PO DAILY Referrals / Follow Up: Ramiro Thompson MD [Med Staff - Active Staff] - Within 1 Month Irene Aguirre NP, REFERENCE DATA EXPERT-C [Med Staff - Adv Practice Prof] - 01/13/23 10:45 am Christopher Cortez PA [Primary Care Provider] - 01/14/23 2:00 pm Disposition Disposition (needs filled in before D/C Order can be placed): Home, Self Care Charges/Coding Visit Charges Inpatient E&M: 37004 Disch Hosp >30min
--- NOTE | 2023-01-12 14:32 | PHA.DC.MC ---
Pharmacy Service has performed discharge medication reconciliation and counseling for this patient. 1. GUAIFENESIN 1200MG PO BID X 7 DAYS 2. IPRATROPIUM/ALBUTEROL 3ML INHALATION Q4HWA The patient's discharge medication list was reviewed for discrepancies and discrepancies were resolved. Home Medications gabapentin 400 mg capsule 400 mg PO BID pain 04/23/19 nitroglycerin 0.4 mg sublingual tablet 0.4 mg sublingual Q5-15M PRN CHEST PAIN 04/23/19 atorvastatin 10 mg tablet 10 mg PO DAILY cholesterol 04/27/19 mirtazapine 15 mg tablet 15 mg PO QHS Depression 12/03/19 albuterol sulfate 0.63 mg/3 mL solution for nebulization 0.63 mg inhalation TID PRN SOB 02/19/20 amlodipine 5 mg tablet 5 mg PO DAILY BP 07/09/20 carvedilol 25 mg tablet 25 mg PO BID HEART 09/28/22 furosemide 40 mg tablet 40 mg PO BID Water Pill 10/29/22 magnesium oxide 400 mg (241.3 mg magnesium) tablet 500 mg PO DAILY Supplimentation 12/02/22 isosorbide mononitrate 30 mg tablet,extended release 24 hr 30 mg PO DAILY SOB 12/24/22 potassium chloride 20 mEq tablet,extended release(part/cryst) 20 meq PO BID Supplimentation 12/24/22 bupropion HCl 150 mg 24 hr tablet, extended release 75 mg PO BID mental health 01/10/23 guaifenesin 1,200 mg tablet, extended release 12 hr (Mucus Relief ER) 1,200 mg PO BID 7 days #14 tabs 01/12/23 hydralazine 50 mg tablet 50 mg PO BID 30 days #60 tabs 01/12/23 ipratropium 0.5 mg-albuterol 3 mg (2.5 mg base)/3 mL nebulization soln 3 ml inhalation Q4HWA.RT 30 days #90 mL 01/12/23 The patient was counseled on the following discharge medications and changes in medications for homegoing were reviewed. The Reason for Use, instructions for use, and potential side effects were reviewed for all new medications. The patient's questions regarding all of their medications were answered. The patient was able to verbally demonstrate an understanding of their discharge medications.
[2023-01-12 15:33] LABS: Mycoplasma Pneum AB IgG < 100 U/mL (0-99); Mycoplasma pneum. AB IgM < 770 U/mL (0-769)
== END 2023-01-12 14:49 | disposition home or self-care (01) | DRG 206 ==
LOC: ED 19:22 → PCU 22:01
PROVIDERS: Internal Medicine; Internal Medicine Critical Care Medicine; Admitting Provider Hospitalist; Emergency Provider Emergency Medicine; PCP Physician Assistant; Visit Provider Internal Medicine
PROC: 0BJ08ZZ Inspection of Tracheobronchial Tree, Via Natural or Artificial Opening Endoscopic (ICD-10-PCS; CPT 31622; principal; 2023-01-12 10:15)
DX: J98.11 Atelectasis (principal); N18.4 Chronic kidney disease, stage 4 (severe); Q60.0 Renal agenesis, unilateral; G47.36 Sleep related hypoventilation in conditions classified elsewhere; I27.20 Pulmonary hypertension, unspecified; J44.9 Chronic obstructive pulmonary disease, unspecified; J98.4 Other disorders of lung; F17.210 Nicotine dependence, cigarettes, uncomplicated; D53.9 Nutritional anemia, unspecified; E87.6 Hypokalemia; G62.9 Polyneuropathy, unspecified; E78.5 Hyperlipidemia, unspecified; I12.9 Hypertensive chronic kidney disease with stage 1 through stage 4 chronic kidney disease, or unspecified chronic kidney disease; R07.89 Other chest pain; R93.89 Abnormal findings on diagnostic imaging of other specified body structures; N28.9 Disorder of kidney and ureter, unspecified; R53.81 Other malaise; F32.A Depression, unspecified; Z71.6 Tobacco abuse counseling
CPT/HCPCS: 36415; 71045; 71250; 80048; 83880; 84145; 84484; 85025; 85379; 85610; 85730; 86738; 87015; 87070; 87116; 87205; 87206; 87428; 87449; 87641; 88108; 88305; 88312; 88313; 89050; 93005; 93970; 94640; 94667; 94668; 99284; J7120; A4216

== ENCOUNTER 2023-01-20 14:19 | Emergency (ER) | payer MEDICARE, SELFPAY ==
[2023-01-20 14:20] VITALS: BP 166/82; PULSE 58; RESP 18; TEMP 37.1; O2SAT 95
--- NOTE | 2023-01-20 14:51 | CT_ITS ---
STUDY: CT Abdomen And Pelvis W/O Contrast Injection 01/20/2023 3:53 PM REASON FOR EXAM: Male, 72 years old. general abdomen pain, weakness, prior left testicle removed d/t cancer-radiation, hypertension, hernia repair x 2 pain abdominal pain Individualized dose optimization techniques were used for this CT. COMPARISON: ct chest 01.10.23. TECHNIQUE: CT Abdomen And Pelvis W/O Contrast Injection FINDINGS: There are atherosclerotic calcifications of visualized coronary arteries. Near complete collapse of the left lower lobe . Normal liver. There are multiple gallstones. Normal spleen. Normal pancreas. Normal bilateral adrenal glands. There are hypodensities in the right kidney. These are consistent for cysts. No follow up required. There is moderate cortical atrophy of the left kidney, consistent with chronic medical renal disease. There are hypodensities in the left kidney. These are consistent for cysts. No follow up required. Normal visualized stomach. Normal small intestine. Stool throughout the colon. The appendix is visualized and appears normal. There are calcifications of the abdominal aorta. This is consistent for atherosclerotic disease. There is 32mm abdominal aortic aneurysm. Vascular workup can be obtained based on clinical correlation. Normal inferior vena cava. Subcentimeter mesenteric lymph nodes. Normal urinary bladder. There is an umbilical hernia containing fat. Normal osseous structures. CT/Abdomen/Pelvis without Cont IMPRESSION: (NOT LISTED IN ORDER OF SIGNIFICANCE) Near complete collapse of the left lower lobe is unchanged. 32mm abdominal aortic aneurysm. There are multiple gallstones. Other findings as above. Electronically Signed: Thompson Thacker MD at 16:10 EDT ,
--- NOTE | 2023-01-20 14:51 | EKG12_ITS ---
Test Reason : WEAKNESS Blood Pressure : / mmHG Vent. Rate : 057 BPM Atrial Rate : 057 BPM P-R Int : 190 ms QRS Dur : 106 ms QT Int : 474 ms P-R-T Axes : 070 -15 192 degrees QTc Int : 461 ms Sinus bradycardia Left ventricular hypertrophy with repolarization abnormality ( R in aVL , Sunny product ) Abnormal ECG Confirmed by KIMBERLEY BRAXTON, SHAISTA ([id number]), scientific publications editor JAIMIE FLAHERTY ([id number]) on 01/24/2023 10:50:29 AM Referred By: Confirmed By:LAURA CHU MD
--- NOTE | 2023-01-20 14:52 | EX.ED.DYSGE1 ---
HPI History of Present Illness Chief Complaint: Weakness Detail of Chief Complaint: Not feeling well for 4 days Informant: patient Narrative Narrative: Patient presents to the emergency department with complaint of not feeling well for the last 4 days. Patient states that while at work 4 days ago his coworkers asked if he was feeling well because he was very pale and feeling weak. Patient was sent home. Patient has not been back to work. Patient just generally does not feel well. He has occasional heavy chest. Denies fever. Denies cough. Occasionally feels short of breath. Patient also feeling somewhat puffy all over. Patient was seen and admitted 2 weeks ago for some respiratory issues and had bronchoscopy. He had negative venous Dopplers of the lower extremities. He does have history of renal insufficiency. He denies recent travel or surgery. 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) Anxiety Arthritis Back pain Benign paroxysmal positional vertigo Bradycardia Cancer Cardiology follow-up encounter Cephalgia Chest pain Chronic abdominal pain Chronic cough Chronic HFrEF (heart failure with reduced ejection fraction) Chronic renal insufficiency, stage II (mild) CKD (chronic kidney disease) COPD (chronic obstructive pulmonary disease) Depression Depressive disorder Dizziness Easy bruising Essential hypertension Essential hypertension Gastric reflux GERD (gastroesophageal reflux disease) Hiatal hernia High cholesterol History of hiatal hernia History of pain when walking History of stress test History of ulceration Hx of echocardiogram Injury of head and neck Left ventricular apical thrombus Loss of hearing Myocardial infarct, old Non-ischemic cardiomyopathy Overweight (BMI 25.0-29.9) Palpitations Pulmonary fibrosis Shortness of breath on exertion Smoker Stage 2 moderate COPD by GOLD classification Symptomatic bradycardia Syncope Testicular cancer Tobacco abuse Wears dentures Wears glasses Home Medications gabapentin 400 mg capsule 400 mg PO BID pain 04/23/19 [History Last Taken 09/28/22] nitroglycerin 0.4 mg sublingual tablet 0.4 mg sublingual Q5-15M PRN CHEST PAIN 04/23/19 [History Last Taken 04/25/19] atorvastatin 10 mg tablet 10 mg PO DAILY cholesterol 04/27/19 [History Last Taken 09/28/22] mirtazapine 15 mg tablet 15 mg PO QHS Depression 12/03/19 [History Last Taken 09/27/22] albuterol sulfate 0.63 mg/3 mL solution for nebulization 0.63 mg inhalation TID PRN SOB 02/19/20 [History Last Taken 09/28/22] amlodipine 5 mg tablet 5 mg PO DAILY BP 07/09/20 [History Last Taken 09/28/22] carvedilol 25 mg tablet 25 mg PO BID HEART 09/28/22 [History Last Taken 09/28/22] furosemide 40 mg tablet 40 mg PO BID Water Pill 10/29/22 [History Last Taken Unknown] magnesium oxide 400 mg (241.3 mg magnesium) tablet 500 mg PO DAILY Supplimentation 12/02/22 [History Last Taken Unknown] isosorbide mononitrate 30 mg tablet,extended release 24 hr 30 mg PO DAILY SOB 12/24/22 [History Last Taken Unknown] potassium chloride 20 mEq tablet,extended release(part/cryst) 20 meq PO BID Supplimentation 12/24/22 [History Last Taken Unknown] bupropion HCl 150 mg 24 hr tablet, extended release 75 mg PO BID mental health 01/10/23 [History Last Taken Unknown] guaifenesin 1,200 mg tablet, extended release 12 hr (Mucus Relief ER) 1,200 mg PO BID 7 days #14 tabs 01/12/23 [Rx Last Taken Unknown] hydralazine 50 mg tablet 50 mg PO BID 30 days #60 tabs 01/12/23 [Rx Last Taken Unknown] albuterol sulfate 2.5 mg/3 mL (0.083 %) solution for nebulization 2.5 mg (3 mL) inhalation Q4H PRN Sob &/Or Wheezing #180 mL 01/13/23 [Rx Last Taken Unknown] ipratropium bromide 0.02 % solution for inhalation 2.5 ml inhalation Q6H PRN shortness of breath or wheezing #150 mL 01/13/23 [Rx Last Taken Unknown] lorazepam 1 mg tablet (Ativan) 1 mg PO TID PRN anxiety #10 tabs 01/20/23 [Rx Last Taken Unknown] Allergy/AdvReac Type Severity Reaction Status Date / Time LASHONDA Inhibitors Allergy Severe Angioedema Verified 01/20/23 14:22 lisinopril Allergy Severe Angioedema Verified 01/20/23 14:22 Family History Father Cancer bone AAA (abdominal aortic aneurysm) Grandfather AAA (abdominal aortic aneurysm) Uncle AAA (abdominal aortic aneurysm) Surgical History H/O umbilical hernia repair History of AAA (abdominal aortic aneurysm) repair History of arthroscopic knee surgery History of corneal transplant History of foot surgery History of implantable cardiac defibrillator (ICD) History of knee surgery History of left heart catheterization (02/08/20) History of orchiectomy History of surgery on left wrist History of tonsillectomy Implantable cardioverter-defibrillator (ICD) in situ (08/21/20) Trigeminal neuralgia Social History household members: spouse Smoking Status: Current every day smoker tobacco type: cigarettes and cigars per week: 14 Tobacco: How many years used: 50 alcohol intake: never substance use type: does not use caffeine: Yes Type: coffee Number of servings: 5 ROS ROS ED Review of Systems ROS Unobtainable: other Constitutional Constitutional ED: Reports lethargy; Denies chills, fever(s), sweats or weight loss Eyes Eyes: Denies blurry vision, change in vision or diplopia ENT ENT ED: Denies rhinorrhea or sore throat Cardiovascular Cardiovascular: Reports chest pain; Denies orthopnea or racing heartbeat Respiratory/Chest Respiratory/Chest: Reports dyspnea and dyspnea on exertion; Denies cough, orthopnea or sputum Gastrointestinal Gastrointestinal: Reports abdominal pain; Denies diarrhea, nausea or vomiting Genitourinary Genitourinary ED: Denies dysuria, hematuria or urinary frequency Musculoskeletal Musculoskeletal: Denies arthralgias, back pain, myalgias or neck pain Integumentary Denies abscess, Abrasions or rash Neurologic Neurologic: Denies headache(s) or weakness Psychiatric Psychiatric: Denies anxiety, depression or suicidal thoughts Endocrine Endocrinology: Denies polydipsia, polyphagia or polyuria Hematologic/Lymphatic Hematologic/Lymphatic: Denies easy bleeding, easy bruising or lymphadenopathy Allergic/Immunologic Allergic/Immunologic ED: Denies mouth swelling, tongue swelling or urticaria EXAM Physical Exam Const Vital Signs: 01/20/23 14:20 Temperature 98.8 F Temperature Source Temporal Pulse Rate 58 L Respiratory Rate 18 Blood Pressure 166/82 H Blood Pressure Mean 110 Pulse Ox 95 Oxygen Delivery Method Room Air Positive well nourished and well developed General Appearance ED: well developed and NAD HEENT Reports TM's clear and moist mucous membranes normocephalic and atraumatic; Negative for trauma or tenderness Tympanic Membrane ED: Yes TM's clear Eyes PERRL and EOMs intact bilaterally General Eye ED: Negative for pale conjunctiva or scleral icterus Neck no lymphadenopathy, supple and no JVD General: Negative for tenderness Chest Wall inspection of chest normal and palpation of chest normal Chest: Negative for tenderness Resp normal respiratory effort and clear to auscultation bilaterally Effort and Inspection: Negative for respiratory distress or pain with movement Auscultation: Negative for rhonchi, wheezes or diminished lung sounds Cardio regular rate, regular rhythm, S1 normal heart sound, S2 normal heart sound and no murmurs Peripheral Pulses: pulses 2+ throughout GI normal to inspection, nondistended, normoactive bowel sounds, soft to palpation, non-tender, non-distended and no masses GI Narrative: Tenderness to palpation over the right upper quadrant and right lower quadrant. Mild guarding. There is no rebound, rigidity, or peritoneal signs. No mass palpated Back/Spine no CVA tenderness and no thoracic nor lumbar tenderness Extremity normal to inspection General Extremety ED: Negative for edema General Extremity: Negative for edema Neuro oriented x3, CN's II-XII intact bilaterally, no sensory deficits noted and gait normal Sensorium / Orientation: awake, alert, oriented to person, oriented to place and oriented to time Motor Exam: strength 5/5 throughout and strength abnormal Psych mental status grossly normal Skin no rashes or lesions noted and no wounds MDM MDM MDM Narrative Medical decision making narrative: Patient presents with generalized weakness and complaint of not feeling well for 4 days. Lab work-up obtained CBC with differential showed a normal white count of 8.4 and hemoglobin 11.6 platelet count 200. Chemistries were unremarkable. BUN was 32 and creatinine 2.18 which is similar to recent values. LFTs were normal. Urinalysis normal. Troponin was normal at 36. CT scan of the abdomen pelvis showed gallstones and a 32 mm abdominal aortic aneurysm. Near complete collapse of left lower lobe is unchanged from prior. 1 view chest x-ray obtained interpreted by myself is chronic changes with small left pleural effusion. Radiology was in agreement. This point etiology of patient's complaints unclear. I do suspect possibly a component of some anxiety that I discussed with him and his family. I will start him on as needed Ativan as his primary care physician recently started him back on his anxiety medication. Patient's creatinine has been slowly trending up over time and he does have a appointment with nephrology coming up within the week. Patient also has an appointment next week to follow-up with pulmonology. Lab Data Attestation: I reviewed the patient's lab results. Labs: Laboratory Results - last 24 hr 01/20/23 01/20/23 01/20/23 15:05 15:05 16:20 WBC 8.4 RBC 3.67 L Hgb 11.6 L Hct 35.7 L MCV 97.3 H MCH 31.6 MCHC 32.5 RDW Std Deviation 56.7 H RDW Coeff of Karen 15.9 H Plt Count 200 MPV 10.4 Immature Gran % (Auto) 1.400 H Neut % (Auto) 85.2 H Lymph % (Auto) 10.2 L [place] % (Auto) 3.1 Eos % (Auto) 0.0 Baso % (Auto) 0.1 Absolute Neuts (auto) 7.2 Absolute Lymphs (auto) 0.86 Nucleated RBC % 0 Sodium 135 L Potassium 3.9 Chloride 99 Carbon Dioxide 27.0 Anion Gap 9 BUN 32 H Creatinine 2.18 H Estim Creat Clear Calc 29.48 Est GFR (MDRD) Af Amer 39 L Est GFR (MDRD) Non-Af 32 L BUN/Creatinine Ratio 14.7 Glucose 213 H Calcium 9.1 Total Bilirubin 0.30 AST 18 ALT 28 Alkaline Phosphatase 85 Troponin I High Sens 36 Total Protein 7.0 Albumin 3.1 L Globulin 3.9 Albumin/Globulin Ratio 0.8 L Urine Color Yellow Urine Clarity Clear Urine pH 7.0 Ur Specific [place] 1.010 Urine Protein 100 H Urine Glucose (UA) 250 H Urine Ketones Negative Urine Occult Blood 10 H Urine Nitrite Negative Urine Bilirubin Negative Urine Urobilinogen Normal Ur Leukocyte Esterase Negative Urine RBC 0 SEEN Urine WBC 0 SEEN Ur Squamous Epith Cells 0 SEEN Urine Bacteria 0 SEEN Urine Mucus 0 SEEN Radiography Diagnostic Testing: Clinical Impression(s) from Imaging Studies Abdomen/Pelvis CT 01/20/23 14:51 IMPRESSION: (NOT LISTED IN ORDER OF SIGNIFICANCE) Near complete collapse of the left lower lobe is unchanged. 32mm abdominal aortic aneurysm. There are multiple gallstones. Other findings as above. Electronically Signed: Thompson Thacker MD at 16:10 EDT , Chest X-Ray 01/20/23 15:00 IMPRESSION: Small left effusion left left lower lobe consolidation or atelectasis.. Findings are suspicious for persistent right lower lobe atelectasis and/or infiltrate. Overall pattern of underlying chronic lung disease. Cardiomegaly pacemaker defibrillator. Electronically Signed: Selene Branch MD at 15:25 EDT , 1 view chest x-ray obtained interpreted by myself a small left pleural effusion with chronic interstitial changes. Radiology in agreement. EKG Initial EKG: Attestation: I personally reviewed and interpreted this EKG as follows: Comments: Sinus rhythm with a rate of 57 bpm with LVH and early repole noted. Discharge Plan Triage Chief Complaint: Weakness ED Provider: Fiona Bhatia Dx/Rx/DC Orders Clinical Impression: Weakness, Abdominal pain Instructions: ED Pain, Acute, Uncertain Cause, ED Weakness (Uncertain Cause) Prescriptions: New lorazepam [Ativan] 1 mg tablet 1 mg PO TID PRN (Reason: anxiety) Qty: 10 0RF No Action nitroglycerin 0.4 mg tablet, sublingual 0.4 mg SUBLINGUAL Q5-15M PRN (Reason: CHEST PAIN) mirtazapine 15 mg tablet 15 mg PO QHS albuterol sulfate 0.63 mg/3 mL solution for nebulization 0.63 mg INHALATION TID PRN (Reason: SOB) amlodipine 5 mg tablet 5 mg PO DAILY furosemide 40 mg tablet 40 mg PO BID Hold Instructions: Resume on 10/02/22. Rx Instructions: May take twice daily if needed. magnesium oxide 400 mg (241.3 mg magnesium) tablet 500 mg PO DAILY gabapentin 400 mg capsule 400 mg PO BID Label Comments: neuropathy atorvastatin 10 MG tablet 10 mg PO DAILY carvedilol 25 mg tablet 25 mg PO BID isosorbide mononitrate 30 mg tablet extended release 24 hr 30 mg PO DAILY potassium chloride 20 mEq tablet,ER particles/crystals 20 meq PO BID bupropion HCl 150 mg tablet extended release 24 hr 75 mg PO BID Label Comments: TAKE 1 TABLET BY MOUTH ONCE DAILY Mucus Relief ER 1,200 mg Tablet Extended Release 12hr 1,200 mg PO BID 7 Days Qty: 14 0RF hydralazine 50 mg tablet 50 mg PO BID 30 Days Qty: 60 0RF Rx Instructions: Hold for SBP less than 130 mmHg albuterol sulfate 2.5 mg /3 mL (0.083 %) solution for nebulization 2.5 mg inhalation Q4H PRN (Reason: Sob &/Or Wheezing) Qty: 180 3RF ipratropium bromide 0.02 % solution 2.5 ml inhalation Q6H PRN (Reason: shortness of breath or wheezing) Qty: 150 6RF Primary Care Provider: Christopher Cortez Referrals: Christopher Cortez PA [Primary Care Provider] - 3-5 Days Disposition Disposition: Home, Self Care
--- NOTE | 2023-01-20 15:00 | RAD_ITS ---
STUDY: X-RAY CHEST REASON FOR EXAM: Male, 72 years old. Weakness TECHNIQUE: Single AP portable view of the chest. COMPARISON: January 12, 2023 chest x-ray FINDINGS: There is persistent increased interstitial markings in the right lung base. There is persistent blunting of the left costophrenic angle. The lung markings are mildly prominent. There is lesser right minor fissure thickening. There is a left-sided pacer defibrillator. There is mild cardiac enlargement. Normal mediastinum and leanne. Normal visualized pulmonary arteries. There is atherosclerotic calcification of the aortic arch with tortuosity. There are diffuse degenerative changes of the visualized thoracic spine. Normal visualized ribs, clavicles, and shoulders. There is no demonstrated abnormality of the visualized soft tissue structures of the upper abdomen. RAD/Chest 1 View (Portable) IMPRESSION: Small left effusion left left lower lobe consolidation or atelectasis.. Findings are suspicious for persistent right lower lobe atelectasis and/or infiltrate. Overall pattern of underlying chronic lung disease. Cardiomegaly pacemaker defibrillator. Electronically Signed: Selene Branch MD at 15:25 EDT Reading Location ID and State: [facility] / [place] Tel , Service support ,
[2023-01-20 15:19] VITALS: BMI 26.9
[2023-01-20] MEDS: 0.9% Normal Saline 1,000 ML 150 ML IV (15:22)
[2023-01-20 15:24] LABS: Absolute Lymphocyte Count 0.86 X10^3/uL (0.83-4.51); Absolute Neutrophil Count 7.2 X10^3/uL (2.0-7.7); Basophil# 0.01 X10^3/uL; Basophil% 0.1 % (0-1); Hematocrit 35.7 % (40-54); Hemoglobin 11.6 g/dL (13.0-16.5); Lymphocyte # 0.86 X10^3/ul (0.83-4.51); Lymphocyte % 10.2 % (19-41); Mean Corp Hgb Conc 32.5 g/dL (32-36); Mean Corpuscular Hgb 31.6 pg (27.0-32.0); Mean Corpuscular Volume 97.3 fL (80-94); Mean Platelet Vol. 10.4 fl (6.2-12.0); Monocyte# 0.26 X10^3/uL; Monocyte% 3.1 % (0-10); NRBC Flagged by Analyzer 0 % (0-5); Neutrophil # 7.18 X10^3/uL (2.7-7.7); Neutrophil % 85.2 % (47-70); Platelet Count 200 K/mm3 (150-450); RBC Distribution Width CV 15.9 % (11.6-14.6); RBC Distribution Width SD 56.7 fl (35.1-43.9); Red Blood Count 3.67 M/mm3 (4.6-6.2); White Blood Count 8.4 K/mm3 (4.4-11.0)
[2023-01-20 15:36] LABS: ALB/GLOB Ratio 0.8 RATIO (0.9-2.4); AST(SGOT) 18 U/L (15-37); Alanine Aminotransfer ALT/SGPT 28 U/L (16-61); Albumin, Serum 3.1 g/dL (3.2-5.0); Alkaline Phosphatase 85 U/L (45-117); Anion Gap 9 (5-15); BUN 32 mg/dL (7-18); BUN/Creat Ratio 14.7 RATIO (10-20); Calcium,Total 9.1 mg/dL (8.5-10.1); Chloride 99 mmol/L (98-107); Creatinine, Serum 2.18 mg/dL (0.70-1.30); EST Glomerular Filtration Rate 32 mL/min (>60); Est Glom Filt Rate - Afr Amer 39 mL/min (>60); Estimated Creatinine Clearance 29.48 ml/min; Globulin 3.9 g/dL (2.2-4.2); Glucose 213 mg/dL (74-106); Potassium 3.9 mmol/L (3.5-5.1); Sodium Level 135 mmol/L (136-145); Troponin-I HS 36 pg/mL (3.0-78.0)
[2023-01-20 16:31] LABS: Bacteria 0 SEEN /hpf (None Seen); Mucous, Urine 0 SEEN /hpf (<or=2+); Squamous Epithelial Cells - UA 0 SEEN /hpf (0-5); White Blood Cells 0 SEEN /hpf (0-5)
[2023-01-20 16:36] LABS: Color, Urine Yellow (Yellow); Glucose, Dipstick 250 mg/dl (Normal); Ketone-Dipstick Negative (Negative); Leukocyte Esterase-Dipstick Negative /ul (Negative); Nitrite-Dipstick Negative (Negative); Occult Blood-Urine 10 /ul (Negative); Protein-Dipstick 100 mg/dl (Negative); Urine Bilirubin Dipstick Negative (Negative); Urine Clarity Clear (Clear); Urine Urobilinogen Normal (Normal)
[2023-01-20 16:45] LABS: Red Blood Cells-Urine 0 SEEN /hpf (0-5)
[2023-01-20 17:17] VITALS: BP 126/74; PULSE 62; RESP 15; O2SAT 98
== END 2023-01-20 17:19 | disposition home or self-care (01) ==
PROVIDERS: Emergency Provider Emergency Medicine; PCP Physician Assistant; Visit Provider Emergency Medicine
DX: R53.1 Weakness (principal); I13.0 Hypertensive heart and chronic kidney disease with heart failure and stage 1 through stage 4 chronic kidney disease, or unspecified chronic kidney disease; I42.8 Other cardiomyopathies; I50.22 Chronic systolic (congestive) heart failure; I71.40 Abdominal aortic aneurysm, without rupture, unspecified; J98.4 Other disorders of lung; F41.9 Anxiety disorder, unspecified; F17.210 Nicotine dependence, cigarettes, uncomplicated; E78.00 Pure hypercholesterolemia, unspecified; N18.2 Chronic kidney disease, stage 2 (mild); K80.20 Calculus of gallbladder without cholecystitis without obstruction; R10.9 Unspecified abdominal pain
CPT/HCPCS: 71045; 74176; 80053; 81001; 84484; 85025; 93005; 96360; 96361; 99285; J7030

== ENCOUNTER → 2023-02-17 | Outpatient (CLI) | payer MEDICARE, SELFPAY ==
--- NOTE | 2023-02-17 14:17 | PFTCOMP ---
COMPLETE PULMONARY FUNCTION TEST INTERPRETATION Brief HPI: Patient is a 72-year-old male, currently under the care of myself, who presents to [facility] for complete pulmonary function tests secondary to diagnosis of bronchiectasis. Respiratory therapist reports good effort and reproducible results. Interpretation: Forced expiration spirometry shows a severe large airways obstructive ventilatory defect with an FEV1 of 49% predicted. There is no significant bronchodilator response by strict ATS criteria. Spirograms are of good quality and plateau slowly, indicating slowly emptying areas of the lungs. The respiratory flow volume loop shows decreased expiratory flow rates at all lung volumes consistent with airway obstruction. Lung volumes by body plethysmography show a normal total lung capacity at 5.54 L, 92% predicted. FRC and RV are elevated out of proportion. Lung volume measurements are consistent with air-trapping. Diffusion capacity by carbon monoxide is decreased at 53% predicted. The airway resistance is elevated. Compared to previous pulmonary function tests from 05/06/2021, there is been a significant reduction in FVC, FEV1 and DLCO by 20%, 27% and 15% respectively. Impression: Irreversible severe large airways obstructive ventilatory defect with a symmetric reduction in diffusion capacity. There has been significant decline compared to 2020
== END | disposition home or self-care (01) ==
LOC: PSN 13:01
PROVIDERS: PCP Physician Assistant; Referring Provider Internal Medicine Critical Care Medicine; Visit Provider Internal Medicine Critical Care Medicine
DX: J47.0 Bronchiectasis with acute lower respiratory infection (principal); F17.210 Nicotine dependence, cigarettes, uncomplicated; Z87.09 Personal history of other diseases of the respiratory system
CPT/HCPCS: 94060; 94726; 94729

== ENCOUNTER → 2023-02-22 | Outpatient (CLI) | payer MEDICARE, SELFPAY ==
[2023-02-22 13:45] VITALS: PULSE 67; PULSE 69; PULSE 72; PULSE 74; PULSE 75; O2SAT 88; O2SAT 90; O2SAT 91; O2SAT 93; O2SAT 94
--- NOTE | 2023-02-22 14:07 | CPS ---
At minute 4 of walk pt desaturated to 88%. Pt was informed that he would be getting placed on oxygen and that he qualified for home O2 with exertion. Pt stated he did not want to be placed on the oxygen. Pt was encouraged to allow the nasal cannula to be administered. Pt stated that he would not allow portable tanks to be delivered that he would not wear it. After talking with pt for several minutes he still refused oxygen and did not feel the need to finish test. He states when he gets short of breath at home he stops what he is doing and rests till he feels better.
--- NOTE | 2023-02-23 10:17 | WT_ITS ---
PSN 6 Minute Walk Test 6 Minute Walk Test 6 Minute Walk Test: 6 Minute Walk Test PSN:6-Minute Walk Test Start: 02/22/23 14:04 Freq: Status: Active Protocol: [id number] Document 02/22/23 13:45 [employer] [facility] [employer] (Rec: 02/22/23 14:16 [employer] [facility] [id number]) 6 Minute Walk Test Date Performed 02/22/23 Time Performed 13:45 Height 5 ft 8 in Weight: 175 lb Weight in Pounds 175.[address]: Dr Mcgill Assistive device used: None Pre-test Oxygen Delivery Method Room Air Pulse Ox (%) 93 Pulse Rate (60-100 beats/min) 69 Dyspnea Nila Scale (0-10) 0.5 Exertion Nila Scale (6-20) 6 1st minute Oxygen Delivery Method Room Air Pulse Ox (%) 94 Pulse Rate (60-100 beats/min) 75 2nd minute Oxygen Delivery Method Room Air Pulse Ox (%) 90 Pulse Rate (60-100 beats/min) 72 3rd minute Oxygen Delivery Method Room Air Pulse Ox (%) 91 Pulse Rate (60-100 beats/min) 74 4th minute Oxygen Delivery Method Room Air Pulse Ox (%) 88 Pulse Rate (60-100 beats/min) 74 5th minute Oxygen Flow Rate (L/min) (L/min) 0 6th minute Oxygen Flow Rate (L/min) (L/min) 0 Post-test Oxygen Delivery Method Room Air Pulse Ox (%) 93 Pulse Rate (60-100 beats/min) 67 Dyspnea Nila Scale (0-10) 0.5 Full Laps Walked 9 Partial Lap, Number of Tiles Walked 0 Total Distance Walked (ft) 531 02/22/23 14:07 Cardiopulmonary Services by Trish Olsen At minute 4 of walk pt desaturated to 88%. Pt was informed that he would be getting placed on oxygen and that he qualified for home O2 with exertion. Pt stated he did not want to be placed on the oxygen. Pt was encouraged to allow the nasal cannula to be administered. Pt stated that he would not allow portable tanks to be delivered that he would not wear it. After talking with pt for several minutes he still refused oxygen and did not feel the need to finish test. He states when he gets short of breath at home he stops what he is doing and rests till he feels better. Initialized on 02/22/23 14:07 - END OF NOTE Interpretation Interpretation: The patient ambulated 531 feet over the course of 6 minutes beginning on room air without assistive devices. Pretesting oxygen saturation was noted to be 93% on room air. With ambulation, the patient desaturated to 88% admitted for a testing. However, the patient refused to allow her supplemental oxygen to be placed. He subsequently refused to complete the remainder of the test. Recommendations Recommendations: Although supplemental oxygen should be utilized with exertion, the exact amount is unable to be determined, as the patient refused to complete the testing.
== END | disposition home or self-care (01) ==
LOC: PSN 13:37
PROVIDERS: PCP Physician Assistant; Referring Provider Internal Medicine Critical Care Medicine; Visit Provider Internal Medicine Critical Care Medicine
DX: J47.0 Bronchiectasis with acute lower respiratory infection (principal); F17.210 Nicotine dependence, cigarettes, uncomplicated; Z87.09 Personal history of other diseases of the respiratory system
CPT/HCPCS: 94618

== ENCOUNTER 2023-05-11 10:35 | Inpatient (IN) | payer MEDICARE, SELFPAY ==
[2023-05-11] VITALS (13 sets, daily range): BP systolic 105–183; BP diastolic 57–85; PULSE 51–73; RESP 15–21; TEMP 36–36.9; O2SAT 90–99; BMI 27.9; BMI 28.7
--- NOTE | 2023-05-11 10:49 | EDS_ITS ---
HPI History of Present Illness Chief Complaint: Dizziness Informant: patient Onset/Context/Timing Onset: Days (3) Context: Sudden Onset Timing: Continuous Quality: Lightheaded, off balance Location: Generalized Worsened by: Standing, turning Relieved by: Nothing Narrative Narrative: Patient presents with dizziness, lightheadedness, and fatigue that has been getting worse over the past 3 days. Patient states it began rather suddenly while he was at work 2 days ago. Patient states he feels lightheaded and off- balance. Patient states this is worse with standing and with turning. Patient states nothing seems to help with it. Patient admits to some tinnitus. Patient also admits to some subjective chills. Patient admits to nausea but denies any vomiting. Patient also admits to some pain in his chest and cough. Patient also admits to a headache. 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) Anxiety Arthritis Back pain Benign paroxysmal positional vertigo Bradycardia Cancer Cardiology follow-up encounter Cephalgia Chest pain Chronic abdominal pain Chronic cough Chronic HFrEF (heart failure with reduced ejection fraction) Chronic renal insufficiency, stage II (mild) CKD (chronic kidney disease) COPD (chronic obstructive pulmonary disease) Depression Depressive disorder Dizziness Dyspnea Easy bruising Essential hypertension Essential hypertension Gastric reflux GERD (gastroesophageal reflux disease) Hiatal hernia High cholesterol History of hiatal hernia History of pain when walking History of stress test History of ulceration Hx of echocardiogram Injury of head and neck Left ventricular apical thrombus Loss of hearing Myocardial infarct, old Non-ischemic cardiomyopathy Overweight (BMI 25.0-29.9) Palpitations Pulmonary fibrosis Shortness of breath on exertion Smoker Smoker Stage 2 moderate COPD by GOLD classification Symptomatic bradycardia Syncope Testicular cancer Tobacco abuse Wears dentures Wears glasses Home Medications gabapentin 400 mg capsule 400 mg PO BID pain 04/23/19 [History Last Taken 09/28/22] nitroglycerin 0.4 mg sublingual tablet 0.4 mg sublingual Q5-15M PRN CHEST PAIN 04/23/19 [History Last Taken 04/25/19] atorvastatin 10 mg tablet 10 mg PO DAILY cholesterol 04/27/19 [History Last Taken 09/28/22] mirtazapine 15 mg tablet 15 mg PO QHS Depression 12/03/19 [History Last Taken 09/27/22] carvedilol 25 mg tablet 25 mg PO Q8H HEART 09/28/22 [History Last Taken 09/28/22] furosemide 40 mg tablet 40 mg PO BID Water Pill 10/29/22 [History Last Taken Unknown] magnesium oxide 400 mg (241.3 mg magnesium) tablet 500 mg PO DAILY Supplimentation 12/02/22 [History Last Taken Unknown] isosorbide mononitrate 30 mg tablet,extended release 24 hr 30 mg PO DAILY SOB 12/24/22 [History Last Taken Unknown] bupropion HCl 150 mg 24 hr tablet, extended release 75 mg PO BID mental health 01/10/23 [History Last Taken Unknown] hydralazine 50 mg tablet 50 mg PO BID 30 days #60 tabs 01/12/23 [Rx Last Taken Unknown] lorazepam 1 mg tablet (Ativan) 1 mg PO TID PRN anxiety #10 tabs 01/20/23 [Rx Last Taken Unknown] amlodipine 5 mg tablet 10 mg PO DAILY BP 01/26/23 [History Last Taken Unknown] potassium chloride 20 mEq tablet,extended release(part/cryst) 20 meq PO BID Supplimentation #180 tabs 01/31/23 [Rx Last Taken Unknown] fluticasone fur. 200 mcg-umeclid 62.5 mcg-vilant 25 mcg inhalat.powder (Trelegy Ellipta) 1 inh inhalation DAILY #3 ea 03/07/23 [Rx Last Taken Unknown] buspirone 5 mg tablet mg 05/11/23 [History Last Taken Unknown] Allergy/AdvReac Type Severity Reaction Status Date / Time LASHONDA Inhibitors Allergy Severe Angioedema Verified 05/11/23 10:37 lisinopril Allergy Severe Angioedema Verified 05/11/23 10:37 Family History Father Cancer bone AAA (abdominal aortic aneurysm) Grandfather AAA (abdominal aortic aneurysm) Uncle AAA (abdominal aortic aneurysm) Surgical History H/O umbilical hernia repair History of AAA (abdominal aortic aneurysm) repair History of arthroscopic knee surgery History of corneal transplant History of foot surgery History of implantable cardiac defibrillator (ICD) History of knee surgery History of left heart catheterization (02/08/20) History of orchiectomy History of surgery on left wrist History of tonsillectomy Implantable cardioverter-defibrillator (ICD) in situ (08/21/20) Trigeminal neuralgia Social History household members: spouse Smoking Status: Current every day smoker tobacco type: cigarettes and cigars per week: 14 Tobacco: How many years used: 50 alcohol intake: never substance use type: does not use caffeine: Yes Type: coffee Number of servings: 5 ROS ROS ED Constitutional Constitutional ED: Reports chills and subjective; Denies fever(s) Eyes Eyes: Denies blurry vision or change in vision ENT ENT ED: Denies rhinorrhea or sore throat Cardiovascular Cardiovascular: Reports chest pain; Denies palpitations Respiratory/Chest Respiratory/Chest: Reports cough; Denies dyspnea Gastrointestinal Gastrointestinal: Reports nausea; Denies vomiting Genitourinary Genitourinary ED: Denies dysuria or hematuria Musculoskeletal Musculoskeletal: Reports back pain and neck pain Integumentary Denies abscess or rash Neurologic Neurologic: Reports headache(s); Denies weakness Allergic/Immunologic Allergic/Immunologic ED: Denies mouth swelling or urticaria EXAM Physical Exam Const Vital Signs: 05/11/23 10:36 05/11/23 10:46 05/11/23 11:51 Temperature 97.3 F L Temperature Source Temporal Pulse Rate 56 L Pulse Rate [Lying] 53 L Pulse Rate [Sitting (for 1 minute prior to obtaining)] 54 L Pulse Rate [Standing (for 1 minute prior to obtaining)] 60 Respiratory Rate 16 Respiratory Pattern Normal Blood Pressure 163/81 H Blood Pressure [Lying] 154/57 H Blood Pressure [Sitting (for 1 minute prior to obtaining)] 158/73 H Blood Pressure [Standing (for 1 minute prior to obtaining)] 160/75 H Blood Pressure Mean 108 Blood Pressure Mean [Lying] 89 Blood Pressure Mean [Sitting (for 1 minute prior to obtaining)] 101 Blood Pressure Mean [Standing (for 1 minute prior to obtaining)] 103 Pulse Ox 99 Oxygen Delivery Method Oxygen Flow Rate (L/min) 05/11/23 12:15 05/11/23 13:09 05/11/23 13:00 Temperature Temperature Source Pulse Rate 56 L 73 Pulse Rate [Lying] Pulse Rate [Sitting (for 1 minute prior to obtaining)] Pulse Rate [Standing (for 1 minute prior to obtaining)] Respiratory Rate 15 16 Respiratory Pattern Blood Pressure 173/78 H 105/73 Blood Pressure [Lying] Blood Pressure [Sitting (for 1 minute prior to obtaining)] Blood Pressure [Standing (for 1 minute prior to obtaining)] Blood Pressure Mean 109 83 Blood Pressure Mean [Lying] Blood Pressure Mean [Sitting (for 1 minute prior to obtaining)] Blood Pressure Mean [Standing (for 1 minute prior to obtaining)] Pulse Ox 95 96 Oxygen Delivery Method Room Air Room Air Room Air Oxygen Flow Rate (L/min) 05/11/23 13:25 05/11/23 13:33 05/11/23 14:03 Temperature 97.6 F L 97.6 F L Temperature Source Oral Oral Pulse Rate 57 L 63 56 L Pulse Rate [Lying] Pulse Rate [Sitting (for 1 minute prior to obtaining)] Pulse Rate [Standing (for 1 minute prior to obtaining)] Respiratory Rate 15 21 H 16 Respiratory Pattern Blood Pressure 171/75 H 172/81 H 167/85 H Blood Pressure [Lying] Blood Pressure [Sitting (for 1 minute prior to obtaining)] Blood Pressure [Standing (for 1 minute prior to obtaining)] Blood Pressure Mean 107 111 112 Blood Pressure Mean [Lying] Blood Pressure Mean [Sitting (for 1 minute prior to obtaining)] Blood Pressure Mean [Standing (for 1 minute prior to obtaining)] Pulse Ox 90 93 98 Oxygen Delivery Method Room Air Room Air Nasal Cannula Oxygen Flow Rate (L/min) 3 05/11/23 14:03 Temperature Temperature Source Pulse Rate 56 L Pulse Rate [Lying] Pulse Rate [Sitting (for 1 minute prior to obtaining)] Pulse Rate [Standing (for 1 minute prior to obtaining)] Respiratory Rate 16 Respiratory Pattern Blood Pressure 167/85 H Blood Pressure [Lying] Blood Pressure [Sitting (for 1 minute prior to obtaining)] Blood Pressure [Standing (for 1 minute prior to obtaining)] Blood Pressure Mean 112 Blood Pressure Mean [Lying] Blood Pressure Mean [Sitting (for 1 minute prior to obtaining)] Blood Pressure Mean [Standing (for 1 minute prior to obtaining)] Pulse Ox 98 Oxygen Delivery Method Nasal Cannula Oxygen Flow Rate (L/min) 3 Positive well nourished and well developed General Appearance ED: well developed and NAD HEENT Reports moist mucous membranes Eyes PERRL Eyes Narrative: There was some brief nystagmus with left lateral gaze. Neck supple and no JVD Resp normal respiratory effort and clear to auscultation bilaterally Cardio regular rhythm Rate: bradycardia GI normal to inspection, nondistended, normoactive bowel sounds and non-tender Palpation: soft Extremity normal to inspection General Extremety ED: Negative for edema or tenderness General Extremity: Negative for edema Neuro oriented x3, CN's II-XII intact bilaterally and no sensory deficits noted Sensorium / Orientation: alert Motor Exam: strength 5/5 throughout Psych mental status grossly normal Skin no rashes or lesions noted MDM MDM MDM Narrative Medical decision making narrative: Differential diagnosis includes peripheral vertigo, central vertigo, stroke, dehydration, electrolyte abnormality, acute kidney injury, anemia, cardiac dysrhythmia, cardiac ischemia, pneumonia, and viral respiratory infection. EKG will be obtained to assess for cardiac dysrhythmia and cardiac ischemia. Chest x-ray will be obtained to assess for pneumonia and congestive heart failure. CT scan of the brain will be obtained to assess for intracranial bleeding and stroke. CBC will be obtained to assess for leukocytosis and anemia. Basic metabolic profile will be obtained to assess for electrolyte abnormality and renal function. High-sensitivity troponin will be obtained to assess for cardiac ischemia. History & Record Review Discussion w/independent historian: Patient and Significant other Additional record(s) reviewed:: Prior ED visit and Prior labs Lab Data Attestation: I reviewed the patient's lab results. Lab results narrative: CBC was reviewed. There is a slight anemia with a hemoglobin of 11.8 and hematocrit 38.2. Basic metabolic profile was reviewed and showed a BUN of 21 and creatinine of 2.12. These are consistent with prior results. High- sensitivity troponin was reviewed and was normal at 42. Labs: Laboratory Results - last 24 hr 05/11/23 05/11/23 05/11/23 11:03 13:24 13:25 WBC 6.5 RBC 3.79 L Hgb 11.8 L Hct 38.2 L MCV 100.8 H MCH 31.1 MCHC 30.9 L RDW Std Deviation 57.6 H RDW Coeff of Karen 15.4 H Plt Count 170 MPV 10.6 Immature Gran % (Auto) 0.300 Neut % (Auto) 61.4 Lymph % (Auto) 20.9 [place] % (Auto) 9.9 Eos % (Auto) 7.0 H Baso % (Auto) 0.5 Absolute Neuts (auto) 4.0 Absolute Lymphs (auto) 1.35 Nucleated RBC % 0 PT 13.2 INR 1.0 APTT 31.8 Sodium 137 Potassium 3.7 Chloride 104 Carbon Dioxide 26.0 Anion Gap 7 BUN 21 H Creatinine 2.12 H Estim Creat Clear Calc 28.84 Est GFR (MDRD) Af Amer 40 L Est GFR (MDRD) Non-Af 33 L BUN/Creatinine Ratio 9.9 L Glucose 112 H Calcium 8.8 Troponin I High Sens 42 35 POC Glucose 88 Radiography Chest X-Ray - ED: 2 View, Read by ED Physician, Read by Radiologist and - (Bibasilar atelectasis versus infiltrate) Diagnostic Testing: Clinical Impression(s) from Imaging Studies Brain CT 05/11/23 10:54 IMPRESSION: Stable mild microvascular ischemic changes in the posterior periventricular white matter. No acute intracranial pathology. Electronically Signed: Emmett Metzger MD at 11:44 EDT Reading Location ID and State: [id number] / Unknown , Service support , Chest X-Ray 05/11/23 10:55 IMPRESSION: Consolidations at the lung bases. Electronically Signed: Hemant Gates, at 12:31 EDT , Head/Neck CTA 05/11/23 13:05 IMPRESSION: Mediastinal lymphadenopathy and findings in the lung apices as described above. Clinical correlation recommended. Otherwise unremarkable CT Brain, CTA Carotid, and CTA Brain. Electronically Signed: Hemant Gates, at 13:42 EDT , ADDENDUM: 05/11/23 1358 IMPRESSION: Mediastinal lymphadenopathy and findings in the lung apices as described above. Clinical correlation recommended. Otherwise unremarkable CT Brain, CTA Carotid, and CTA Brain. N.B. : The above Results were Read Back by Hemnat Gates to Martinez Schwiger, DO, and understanding confirmed on 05/11/2023 13:51:46 (ET). Electronically Signed: Hemant Gates, at 13:42 EDT , CT scan of the brain was obtained. There are mild microvascular ischemic changes in the posterior periventricular white matter. There is no acute infarct or bleed noted. This was interpreted by the radiologist and was also independently reviewed by myself. PA and lateral chest x-ray was obtained. There are 2 views. On my independent interpretation, lung ny show atelectasis versus infiltrate in the bases bilaterally. There is normal cardiac silhouette. Bony thorax is normal. There is no acute process noted. Radiologist also interpreted the x-ray and agrees. CTA of the head and neck was obtained. There is no large vessel occlusion or aneurysm noted. There is no stenosis noted. There is interstitial thickening and emphysematous changes noted in the lung apices. There is some mediastinal lymphadenopathy noted. This was interpreted by the radiologist and was also independently reviewed by myself. EKG Initial EKG: Attestation: I personally reviewed and interpreted this EKG as follows: Interpretation: Sinus Bradycardia (54) and Non-Specific ST Changes Comments: EKG was obtained. On my independent interpretation, it showed a sinus bradycardia with a rate of 54. MD interval, QRS interval, and QTc intervals were all normal. There is borderline left axis deviation at -21. There is left ventricular hypertrophy with nonspecific ST-T wave changes. This was unchanged compared to previous EKG dated 01/20/2023. Prior EKG tracings: available for review Prior: Unchanged (01/20/2023) Follow-up EKG: Attestation: I personally reviewed and interpreted this EKG as follows: Interpretation: Sinus Bradycardia (52) and Non-Specific ST Changes Comments: EKG was obtained. On my independent interpretation, it showed a sinus bradycardia with a rate of 54. MD interval, QRS interval, and QTc intervals were all normal. There is borderline left axis deviation at -21. There is left ventricular hypertrophy with nonspecific ST-T wave changes. This was unchanged compared to previous EKG. Prior EKG tracings: available for review Prior: Unchanged Management Discussion w/another healthcare provider: Hospitalist and Nursing Staff Development Coordinator Treatment and Re-Evaluation :: Patient was given IV fluids and Valium. Patient had no improvement of his symptoms with Valium. Patient was still dizzy on reevaluation. Patient was given a dose of meclizine. On reevaluation at 1300, patient stated he has been having some heaviness to his right arm and leg. Patient was having some slight weakness. Patient's right arm and right leg began to fall before 5 seconds but did not hit the bed. Patient admits to some decrease sensation in his right arm and leg. Patient has a NIH stroke scale of 3. Because of this, stroke team was called. CTA of the head and neck was obtained to assess for large vessel occl usion and aneurysm. This was negative. PT with INR and PTT were also added on to assess for coagulopathy. These were within normal limits. Case was discussed with the stroke neurologist from [facility]. He states that the patient does not meet criteria for TNK because his initial symptom was dizziness 2 days ago. He recommended starting the patient on antiplatelet therapy and admission for MRI and further evaluation. Case was discussed with the hospitalist. He will admit the patient to his service. Patient understood and was agreeable with the plan. All questions were answered. Critical Care Time Critical Care Time: Yes Critical care time (excluding procedures): 30-74 minutes (32), Including time spent:, Discussing w/Patient &/or Family/Medical Coder, Discussing w/Consultants, Arranging Admission or Transfer and Performing Direct Patient Care at Bedside Discharge Plan Dx/Rx/DC Orders Clinical Impression: Dizziness, Weakness Disposition Disposition: Acute Care Hospital [facility] Discharge Date/Time: 05/11/23 14:27
--- NOTE | 2023-05-11 10:54 | CT_ITS ---
INDICATION: Headache EXAMINATION: CT BRAIN - CT Head or Brain W/O Contrast Injection TECHNIQUE: Multiple axial images were obtained of the head without intravenous contrast. A radiation dose optimization technique was used for this scan. IV Contrast dosage and agent: None. RADIATION DOSAGE (If Supplied By Facility): CTDIvol = ( 44.99 ) mGy, DLP = ( 796.11 ) mGycm COMPARISON: Precontrast images included with CTA brain April 27, 2019. FINDINGS: Normal extracranial soft tissue structures. Moderate atherosclerotic calcific plaquing in the cavernous segments of the bilateral internal carotid arteries. Normal calvarium. Normal size ventricles and extra-axial spaces for the patient''s age. Mildly mottled appearance of the posterior periventricular white matter tracts of the cerebral hemispheres, consistent with changes of microvascular ischemia. Normal basal ganglia and thalami. Normal brainstem. Normal cerebellum. There is no intracranial hemorrhage. There are no findings of an acute ischemic infarction. Normal visualized paranasal sinuses. CT/Brain/Head without Contrast IMPRESSION: Stable mild microvascular ischemic changes in the posterior periventricular white matter. No acute intracranial pathology. Electronically Signed: Emmett Metzger MD at 11:44 EDT Reading Location ID and State: [id number] / Unknown , Service support ,
--- NOTE | 2023-05-11 10:55 | RAD_ITS ---
INDICATION: Dizziness EXAMINATION/TECHNIQUE: X-RAY - XR Chest 2 Views FINDINGS: LINES/DEVICES: A left-sided defibrillator is noted.. LUNGS: Consolidations are noted at the lung bases. MEDIASTINUM AND CARDIOVASCULAR STRUCTURES: Cardiac silhouette not enlarged. Central airways and mediastinal contour are unremarkable. BONES AND SOFT TISSUES: Unremarkable. RAD/Chest PA and Lateral IMPRESSION: Consolidations at the lung bases. Electronically Signed: Hemant Gates, at 12:31 EDT ,
[2023-05-11] MEDS: diazePAM 5 MG Tablet 2.5 MG PO (11:03)
[2023-05-11] MEDS: 0.9% Normal Saline 1,000 ML 1000 ML IV (11:04)
[2023-05-11 11:13] LABS: Absolute Lymphocyte Count 1.35 X10^3/uL (0.83-4.51); Basophil# 0.03 X10^3/uL; Basophil% 0.5 % (0-1); Eosinophil# 0.45 X10^3/uL; Hematocrit 38.2 % (40-54); Hemoglobin 11.8 g/dL (13.0-16.5); Lymphocyte # 1.35 X10^3/ul (0.83-4.51); Lymphocyte % 20.9 % (19-41); Mean Corp Hgb Conc 30.9 g/dL (32-36); Mean Corpuscular Hgb 31.1 pg (27.0-32.0); Mean Corpuscular Volume 100.8 fL (80-94); Mean Platelet Vol. 10.6 fl (6.2-12.0); Monocyte# 0.64 X10^3/uL; Monocyte% 9.9 % (0-10); NRBC Flagged by Analyzer 0 % (0-5); Neutrophil # 3.97 X10^3/uL (2.7-7.7); Neutrophil % 61.4 % (47-70); Platelet Count 170 K/mm3 (150-450); RBC Distribution Width CV 15.4 % (11.6-14.6); RBC Distribution Width SD 57.6 fl (35.1-43.9); Red Blood Count 3.79 M/mm3 (4.6-6.2); White Blood Count 6.5 K/mm3 (4.4-11.0)
[2023-05-11 11:28] LABS: Anion Gap 7 (5-15); BUN 21 mg/dL (7-18); BUN/Creat Ratio 9.9 RATIO (10-20); Calcium,Total 8.8 mg/dL (8.5-10.1); Chloride 104 mmol/L (98-107); Creatinine, Serum 2.12 mg/dL (0.70-1.30); EST Glomerular Filtration Rate 33 mL/min (>60); Est Glom Filt Rate - Afr Amer 40 mL/min (>60); Estimated Creatinine Clearance 28.84 ml/min; Glucose 112 mg/dL (74-106); Potassium 3.7 mmol/L (3.5-5.1); Sodium Level 137 mmol/L (136-145); Troponin-I HS 42 pg/mL (3.0-78.0)
[2023-05-11] MEDS: Meclizine HCl 25 MG Tablet PO (12:11)
--- NOTE | 2023-05-11 13:05 | CT_ITS ---
We are attempting to reach an attending provider to discuss findings. An addendum with communication details will be sent when the communication is complete. INDICATION: Neuro deficit, acute, stroke suspected EXAMINATION: CT BRAIN WITH CONTRAST TECHNIQUE: Noncontrast axial images were obtained of the brain. Subsequently, routine carotid CT angiogram protocol was performed without and with IV contrast. In addition, images were obtained of the [place]. NASCET criteria using the distal ICAs for comparison were used for evaluation of stenoses. 3D reconstructions were reviewed. A radiation dose optimization technique was used for this scan. IV Contrast dosage and agent: COMPARISON: FINDINGS: --CT BRAIN: BRAIN PARENCHYMA: No intra- or extra-axial hemorrhage. No evidence of acute infarct. No intracranial mass or mass effect. There is preservation of the newell/white matter interface. Posterior fossa structures are unremarkable. CSF SPACES: Appropriate for age. No hydrocephalus. Basal cisterns are patent. CALVARIUM, SKULL BASE, PARANASAL SINUSES AND MASTOID AIR CELLS: Clear. No discrete lytic or blastic abnormalities. --CTA NECK: AORTIC ARCH AND BRANCHES: Normal anatomy, patent. RIGHT CCA: No occlusion, significant stenosis or dissection. RIGHT ICA: No occlusion, significant stenosis or dissection. LEFT CCA: No occlusion, significant stenosis or dissection. LEFT ICA: No occlusion, significant stenosis or dissection. RIGHT VERTEBRAL ARTERY: No occlusion, significant stenosis or dissection. LEFT VERTEBRAL ARTERY: No occlusion, significant stenosis or dissection. NECK SOFT TISSUES: Unremarkable. --CTA HEAD: --Anterior circulation: ICAs: No significant stenosis at the intracranial/visualized segments. ACAs: No significant stenosis at the visualized segments. ACOM: Present. MCAs: No significant stenosis at the visualized segments. --Posterior circulation: critical care nurse: No significant stenosis at the visualized segments. BASILAR ARTERY: No significant stenosis. VERTEBRAL ARTERIES: No significant stenosis at the intradural/visualized segments. No evidence of intracranial aneurysm or vascular malformation. LUNG APICES: Interstitial thickening and emphysematous changes noted in the lung apices. Prevascular and pretracheal lymphadenopathy is noted. CT/STROKE CTA Head AND Neck W/Con IMPRESSION: Mediastinal lymphadenopathy and findings in the lung apices as described above. Clinical correlation recommended. Otherwise unremarkable CT Brain, CTA Carotid, and CTA Brain. Electronically Signed: Hemant Gates, at 13:42 EDT ,
--- NOTE | 2023-05-11 13:07 | NURSING ---
STROKE ALERT CALLED
--- NOTE | 2023-05-11 13:09 | ED.RN ---
Patient c/o new onset of symptoms. Numbness and tingling on right side. Stroke alert called per Dr. Connelly.
[2023-05-11 13:29] LABS: Prothrombin Time (Protime)PT. 13.2 SECONDS (11.7-14.9)
[2023-05-11 13:30] LABS: Partial Thromboplast Time 31.8 Seconds (24.1-36.2)
--- NOTE | 2023-05-11 13:33 | ED.RN ---
Stroke alert called at 1307. [facility] called at 1308 with inital report. 1323 patient back in room from CTA. [facility] called.
[2023-05-11 13:42] LABS: Bedside Glucose 88 mg/dL (74-106)
[2023-05-11 13:48] LABS: Troponin-I HS 35 pg/mL (3.0-78.0)
--- NOTE | 2023-05-11 13:51 | ED.RN ---
[id number]- this nurse called [facility] for update. Dr. Connelly spoke with [facility] physician telephone consult.
--- NOTE | 2023-05-11 13:56 | NURSING ---
DR ROSALES FOR DR BUSCH
--- NOTE | 2023-05-11 14:10 | NURSING ---
127 OBS OLEGHE DIZZINESS, WEAKNESS
--- NOTE | 2023-05-11 14:32 | ECHOD_ITS ---
Reason For Study: TIA/STROKE Procedure This was a 2D Doppler, Color Flow transthoracic echocardiogram. Exam performed portable in patient room. Left Ventricle Normal LV size. Moderate concentric left ventricular hypertrophy. The left ventricular ejection fraction is 45 %. Diastolic function is indeterminate. Right Ventricle Normal right ventricle. There is a pacemaker lead in the right ventricle. Atria The left atrium is mildly enlarged. Normal right atrium. Bubble contrast study is negative for PFO/ASD. Mitral Valve Trivial mitral valve insufficiency. Tricuspid Valve Trivial tricuspid valve insufficiency. Unable to estimate RV systolic pressure due to insufficient tricuspid regurgitant envelope. Aortic Valve Trivial aortic valve insufficiency. Pulmonic Valve The pulmonic valve is not well visualized. Great Vessels Normal sized aortic root. Pericardium/Pleural No pericardial effusion. Medication Performed a rapid injection of agitated mix of 9 cc saline and 1cc air to assess for atrial septal defect. MMode/2D Measurements & Calculations LVIDd: 6.1 cm IVSd: 1.5 cm LAV(MOD-bp): 64.0 ml LVIDs: 5.2 cm LVPWd: 1.6 cm FS: 15.5 % LAV(MOD-bp) Indexed: 34.1 ml/m2 LAV(MOD-sp2): 73.7 ml LAV(MOD-sp4): 55.3 ml SV(MOD-sp4): 55.3 ml SV(sp4-el): 58.6 ml LVAd ap4: 41.3 cm2 LVLd ap4: 9.5 cm EDV(MOD-sp4): 152.6 ml EDV(sp4-el): 152.0 ml LVAs ap4: 30.9 cm2 LVLs ap4: 8.7 cm ESV(MOD-sp4): 97.4 ml ESV(sp4-el): 93.3 ml EF(MOD-sp4): 36.2 % EF(sp4-el): 38.6 % TAPSE: 2.2 cm LA A4 area: 19.3 cm2 RA A4 area: 17.1 cm2 Time Measurements MV dec time: 0.33 sec Doppler Measurements & Calculations MV E max kaushik: 47.1 cm/sec Lat Peak E' Kaushik: 5.0 cm/sec Med Peak E' Kaushik: 4.2 cm/sec MV A max kaushik: 70.4 cm/sec E/E' lat: 9.3 E/E' med: 11.2 MV E/A: 0.67 MV V2 max: 84.9 cm/sec MV P1/2t max kaushik: 49.7 cm/sec Ao V2 max: 121.2 cm/sec MV max P.9 mmHg MV P1/2t: 148.7 msec Ao max P.9 mmHg MV V2 mean: 48.6 cm/sec MV dec slope: 98.0 cm/sec2 Ao V2 mean: 72.0 cm/sec MV mean P.1 mmHg Ao mean P.5 mmHg MV V2 VTI: 32.2 cm MVA(P1/2t): 1.5 cm2 Ao V2 VTI: 22.0 cm LV V1 max: 107.3 cm/sec LV V1 max P.6 mmHg ECHO/Echo Complete Interpretation Summary Moderate concentric left ventricular hypertrophy. The left ventricular ejection fraction is 45 %. Diastolic function is indeterminate. Bubble contrast study is negative for PFO/ASD. Ordering Physician: Rosa Soler Referring Physician: ANNIKA REYES Performed By: Lexy Montes De Oca and Student
--- NOTE | 2023-05-11 14:35 | CT_ITS ---
INDICATION: Hilar adenopathy EXAMINATION: CT CHEST WITHOUT CONTRAST - CT Chest W/O Contrast Injection TECHNIQUE: Helically acquired images were obtained of the chest. A radiation dose optimization technique was used for this scan. IV Contrast dosage and agent: None. RADIATION DOSAGE (If Supplied By Facility): CTDIvol = ( 15.53 ) mGy, DLP = ( 551.21 ) mGycm COMPARISON: FINDINGS: LUNGS, PLEURA AND LARGE AIRWAYS: Interstitial densities along the periphery with fibrotic changes. No masses, consolidation, or edema. Mild left pleural effusion. No pneumothorax. THYROID: No thyroid lesions. HEART AND PERICARDIUM: Heart size is normal. No pericardial effusion. CORONARY ARTERIES: Coronary artery calcifications are noted VESSELS: Borderline ascending aorta at 4 cm. Calcified aorta. MEDIASTINUM AND SUDARSHAN: There is mediastinal adenopathy. Esophagus is unremarkable. No hiatal hernia. UPPER ABDOMEN: Atrophic left kidney. Bilateral renal cysts. Cholelithiasis. BONES: No suspicious lytic or blastic abnormality. CT/Chest without Contrast IMPRESSION: Interstitial densities along the periphery with fibrotic changes. Mild left pleural effusion. Borderline ascending aorta. Mediastinal adenopathy. Atrophic left kidney. Renal cysts bilaterally. Cholelithiasis. Electronically Signed: Adrian Giles DO at 16:34 EDT ,
[2023-05-11 15:00] LABS: Erythrocyte Sedimentation Rate 53 mm/hr (0-20)
[2023-05-11 17:28] LABS: Hemoglobin A1c 5.7 % (3.8-5.6)
[2023-05-11 17:58] LABS: Vitamin B12 234 pg/mL (211-911)
[2023-05-11 18:23] LABS: Bedside Glucose 101 mg/dL (74-106)
--- NOTE | 2023-05-11 19:18 | PCM.HP.STD ---
HPI - General General Date of Admission: 05/11/23 Date of Service: 05/11/23 Chief Complaint: Dizziness,, lightheadedness and generalized weakness HPI Narrative INNA AHMADI, is a 73 M with a history of tobacco abuse, COPD, hypertension and pulmonary fibrosis and who presents with a 2 to 3-day history of generalized weakness, fatigue, lightheadedness, dizziness and feeling off balance when walking. Specifically denied having any vertigo. Has been experiencing some tinnitus as well. While in the emergency room mentioned heaviness in the right upper and right lower extremity. Stroke team was called and patient noted to have an NIH of 3. ED consulted neurology who determined patient did not meet criteria for tPA/tenecteplase administration. Patient denies any headache. CT of the brain was normal as well as CT angiogram. 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) Anxiety Arthritis Atrial fibrillation Back pain Benign paroxysmal positional vertigo Bradycardia Cancer Cardiology follow-up encounter Cephalgia Chest pain Chronic abdominal pain Chronic cough Chronic HFrEF (heart failure with reduced ejection fraction) Chronic renal insufficiency, stage II (mild) CKD (chronic kidney disease) Congestive heart failure (CHF) COPD (chronic obstructive pulmonary disease) Depression Depressive disorder Dizziness Dyspnea Easy bruising Essential hypertension Essential hypertension Gastric reflux GERD (gastroesophageal reflux disease) GERD (gastroesophageal reflux disease) Hiatal hernia High cholesterol History of hiatal hernia History of pain when walking History of stress test History of ulceration Hx of echocardiogram Hypertension Injury of head and neck Kidney disease Left ventricular apical thrombus Loss of hearing Myocardial infarct, old Non-ischemic cardiomyopathy Overweight (BMI 25.0-29.9) Pacemaker Palpitations Pulmonary fibrosis Shortness of breath on exertion Smoker Smoker Stage 2 moderate COPD by GOLD classification Stroke/cerebrovascular accident Symptomatic bradycardia Syncope Testicular cancer Tobacco abuse Wears dentures Wears glasses Home Medications gabapentin 400 mg capsule 400 mg PO BID pain 04/23/19 [History Last Taken 09/28/22] nitroglycerin 0.4 mg sublingual tablet 0.4 mg sublingual Q5-15M PRN CHEST PAIN 04/23/19 [History Last Taken 04/25/19] atorvastatin 10 mg tablet 10 mg PO DAILY cholesterol 04/27/19 [History Last Taken 09/28/22] mirtazapine 15 mg tablet 15 mg PO QHS Depression 12/03/19 [History Last Taken 09/27/22] carvedilol 25 mg tablet 25 mg PO Q8H HEART 09/28/22 [History Last Taken 09/28/22] furosemide 40 mg tablet 40 mg PO BID Water Pill 10/29/22 [History Last Taken Unknown] magnesium oxide 400 mg (241.3 mg magnesium) tablet 500 mg PO DAILY Supplimentation 12/02/22 [History Last Taken Unknown] isosorbide mononitrate 30 mg tablet,extended release 24 hr 30 mg PO DAILY SOB 12/24/22 [History Last Taken Unknown] bupropion HCl 150 mg 24 hr tablet, extended release 75 mg PO BID mental health 01/10/23 [History Last Taken Unknown] hydralazine 50 mg tablet 50 mg PO BID 30 days #60 tabs 01/12/23 [Rx Last Taken Unknown] lorazepam 1 mg tablet (Ativan) 1 mg PO TID PRN anxiety #10 tabs 01/20/23 [Rx Last Taken Unknown] amlodipine 5 mg tablet 10 mg PO DAILY BP 01/26/23 [History Last Taken Unknown] potassium chloride 20 mEq tablet,extended release(part/cryst) 20 meq PO BID Supplimentation #180 tabs 01/31/23 [Rx Last Taken Unknown] fluticasone fur. 200 mcg-umeclid 62.5 mcg-vilant 25 mcg inhalat.powder (Trelegy Ellipta) 1 inh inhalation DAILY #3 ea 03/07/23 [Rx Last Taken Unknown] buspirone 5 mg tablet mg 05/11/23 [History Last Taken Unknown] Allergy/AdvReac Type Severity Reaction Status Date / Time LASHONDA Inhibitors Allergy Severe Angioedema Verified 05/11/23 10:37 lisinopril Allergy Severe Angioedema Verified 05/11/23 10:37 Family History Father Cancer bone AAA (abdominal aortic aneurysm) Grandfather AAA (abdominal aortic aneurysm) Uncle AAA (abdominal aortic aneurysm) Surgical History H/O umbilical hernia repair History of AAA (abdominal aortic aneurysm) repair History of arthroscopic knee surgery History of corneal transplant History of foot surgery History of implantable cardiac defibrillator (ICD) History of knee surgery History of left heart catheterization (02/08/20) History of orchiectomy History of surgery on left wrist History of tonsillectomy Implantable cardioverter-defibrillator (ICD) in situ (08/21/20) Trigeminal neuralgia Social History household members: spouse Smoking Status: Current every day smoker tobacco type: cigarettes and cigars per week: 14 Tobacco: How many years used: 50 alcohol intake: never substance use type: does not use caffeine: Yes Type: coffee Number of servings: 5 ROS ROS Narrative Denies any chest pain. Has been having more shortness of breath than usual. All other systems reviewed and essentially negative. Vital Signs Vital Signs Vital Signs: 05/11/23 10:36 05/11/23 10:46 05/11/23 11:51 Temperature 36.3 C L Temperature Source Temporal Pulse Rate 56 L Pulse Rate [Lying] 53 L Pulse Rate [Sitting (for 1 minute prior to obtaining)] 54 L Pulse Rate [Standing (for 1 minute prior to obtaining)] 60 Respiratory Rate 16 Respiratory Effort Respiratory Depth Respiratory Pattern Normal Blood Pressure 163/81 H Blood Pressure [Lying] 154/57 H Blood Pressure [Sitting (for 1 minute prior to obtaining)] 158/73 H Blood Pressure [Standing (for 1 minute prior to obtaining)] 160/75 H Blood Pressure Mean 108 Blood Pressure Mean [Lying] 89 Blood Pressure Mean [Sitting (for 1 minute prior to obtaining)] 101 Blood Pressure Mean [Standing (for 1 minute prior to obtaining)] 103 Blood Pressure Source Blood Pressure Position Blood Pressure Location Pulse Ox 99 Oxygen Delivery Method Oxygen Flow Rate (L/min) 05/11/23 12:15 05/11/23 13:09 05/11/23 13:00 Temperature Temperature Source Pulse Rate 56 L 73 Pulse Rate [Lying] Pulse Rate [Sitting (for 1 minute prior to obtaining)] Pulse Rate [Standing (for 1 minute prior to obtaining)] Respiratory Rate 15 16 Respiratory Effort Respiratory Depth Respiratory Pattern Blood Pressure 173/78 H 105/73 Blood Pressure [Lying] Blood Pressure [Sitting (for 1 minute prior to obtaining)] Blood Pressure [Standing (for 1 minute prior to obtaining)] Blood Pressure Mean 109 83 Blood Pressure Mean [Lying] Blood Pressure Mean [Sitting (for 1 minute prior to obtaining)] Blood Pressure Mean [Standing (for 1 minute prior to obtaining)] Blood Pressure Source Blood Pressure Position Blood Pressure Location Pulse Ox 95 96 Oxygen Delivery Method Room Air Room Air Room Air Oxygen Flow Rate (L/min) 05/11/23 13:25 05/11/23 13:33 05/11/23 14:03 Temperature 36.4 C L 36.4 C L Temperature Source Oral Oral Pulse Rate 57 L 63 56 L Pulse Rate [Lying] Pulse Rate [Sitting (for 1 minute prior to obtaining)] Pulse Rate [Standing (for 1 minute prior to obtaining)] Respiratory Rate 15 21 H 16 Respiratory Effort Respiratory Depth Respiratory Pattern Blood Pressure 171/75 H 172/81 H 167/85 H Blood Pressure [Lying] Blood Pressure [Sitting (for 1 minute prior to obtaining)] Blood Pressure [Standing (for 1 minute prior to obtaining)] Blood Pressure Mean 107 111 112 Blood Pressure Mean [Lying] Blood Pressure Mean [Sitting (for 1 minute prior to obtaining)] Blood Pressure Mean [Standing (for 1 minute prior to obtaining)] Blood Pressure Source Blood Pressure Position Blood Pressure Location Pulse Ox 90 93 98 Oxygen Delivery Method Room Air Room Air Nasal Cannula Oxygen Flow Rate (L/min) 3 05/11/23 14:03 05/11/23 14:39 05/11/23 16:23 Temperature 36.0 C L Temperature Source Oral Pulse Rate 56 L 54 L Pulse Rate [Lying] Pulse Rate [Sitting (for 1 minute prior to obtaining)] Pulse Rate [Standing (for 1 minute prior to obtaining)] Respiratory Rate 16 16 Respiratory Effort Normal Non-Labored Respiratory Depth Normal Respiratory Pattern Normal Blood Pressure 167/85 H 183/83 H Blood Pressure [Lying] Blood Pressure [Sitting (for 1 minute prior to obtaining)] Blood Pressure [Standing (for 1 minute prior to obtaining)] Blood Pressure Mean 112 116 Blood Pressure Mean [Lying] Blood Pressure Mean [Sitting (for 1 minute prior to obtaining)] Blood Pressure Mean [Standing (for 1 minute prior to obtaining)] Blood Pressure Source Monitor Blood Pressure Position Semi-Fowlers Blood Pressure Location Right Arm Pulse Ox 98 95 Oxygen Delivery Method Nasal Cannula Nasal Cannula Nasal Cannula Oxygen Flow Rate (L/min) 3 2.5 05/11/23 15:30 05/11/23 17:40 Temperature 36.4 C L Temperature Source Oral Pulse Rate 51 L Pulse Rate [Lying] Pulse Rate [Sitting (for 1 minute prior to obtaining)] Pulse Rate [Standing (for 1 minute prior to obtaining)] Respiratory Rate 16 Respiratory Effort Respiratory Depth Respiratory Pattern Blood Pressure 169/76 H Blood Pressure [Lying] Blood Pressure [Sitting (for 1 minute prior to obtaining)] Blood Pressure [Standing (for 1 minute prior to obtaining)] Blood Pressure Mean 107 Blood Pressure Mean [Lying] Blood Pressure Mean [Sitting (for 1 minute prior to obtaining)] Blood Pressure Mean [Standing (for 1 minute prior to obtaining)] Blood Pressure Source Monitor Blood Pressure Position Semi-Fowlers Blood Pressure Location Left Arm Pulse Ox 96 98 Oxygen Delivery Method Nasal Cannula Nasal Cannula Oxygen Flow Rate (L/min) 2 2 Weight Weight: 80.8 kg Body Mass Index (BMI) 28.7 Physical Exam Narrative General general exam. Elderly man, obese, depressed appearing, mildly dyspneic at rest, anxious appearing HEENT. Oral mucosa moist no pallor jaundice and no cyanosis Neck. Neck is supple Heart. First and second sounds are no murmurs Lungs. Diminished breath sounds bilaterally, harsh breath sounds Abdomen. Obese, nontender Extremities. 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 Conscious alert and oriented x3. Cranial 2-12 grossly intact. Power in the right upper and lower extremity is about 4/5. 5 out of 5 on the left side. Results Medical Records Data Attestation: I reviewed the patient's medical records Lab / Micro Data Attestation: I reviewed the patient's lab results. 05/11/23 11:03 05/11/23 11:03 Labs: Laboratory Results - last 24 hr 05/11/23 11:03: WBC 6.5, RBC 3.79 L, Hgb 11.8 L, Hct 38.2 L, MCV 100.8 H, MCH 31.1, MCHC 30.9 L, RDW Std Deviation 57.6 H, RDW Coeff of Karen 15.4 H, Plt Count 170, MPV 10.6, Immature Gran % (Auto) 0.300, Neut % (Auto) 61.4, Lymph % (Auto) 20.9, [place] % (Auto) 9.9, Eos % (Auto) 7.0 H, Baso % (Auto) 0.5, Absolute Neuts (auto) 4.0, Absolute Lymphs (auto) 1.35, Nucleated RBC % 0, ESR 53 H, PT 13.2, INR 1.0, APTT 31.8, Sodium 137, Potassium 3.7, Chloride 104, Carbon Dioxide 26.0, Anion Gap 7, BUN 21 H, Creatinine 2.12 H, Estim Creat Clear Calc 28.84, Est GFR (MDRD) Af Amer 40 L, Est GFR (MDRD) Non-Af 33 L, BUN/Creatinine Ratio 9.9 L, Glucose 112 H, Hemoglobin A1c 5.7 H, Calcium 8.8, Troponin I High Sens 42 05/11/23 13:24: POC Glucose 88 05/11/23 13:25: Troponin I High Sens 35 05/11/23 16:14: Vitamin B12 234 05/11/23 18:04: POC Glucose 101 Micro: Microbiology 05/11/23 14:23 Nasal Secretion SARS-CoV-2 & FLU Antigen (Rapid) - Final Radiology Impression Brain CT 05/11/23 10:54 IMPRESSION: Stable mild microvascular ischemic changes in the posterior periventricular white matter. No acute intracranial pathology. Electronically Signed: Emmett Metzger MD at 11:44 EDT Reading Location ID and State: [id number] / Unknown , Service support , Chest X-Ray 05/11/23 10:55 IMPRESSION: Consolidations at the lung bases. Electronically Signed: Hemant Gates, at 12:31 EDT Reading Location ID and State: [facility] / [place] Tel , Service support , Head/Neck CTA 05/11/23 13:05 IMPRESSION: Mediastinal lymphadenopathy and findings in the lung apices as described above. Clinical correlation recommended. Otherwise unremarkable CT Brain, CTA Carotid, and CTA Brain. Electronically Signed: Hemant Gates, at 13:42 EDT , ADDENDUM: 05/11/23 1358 IMPRESSION: Mediastinal lymphadenopathy and findings in the lung apices as described above. Clinical correlation recommended. Otherwise unremarkable CT Brain, CTA Carotid, and CTA Brain. N.B. : The above Results were Read Back by Hemant Gates to Martinez Connelly DO, and understanding confirmed on 05/11/2023 13:51:46 (ET). Electronically Signed: Hemant Gates, at 13:42 EDT , Chest CT 05/11/23 14:35 IMPRESSION: Interstitial densities along the periphery with fibrotic changes. Mild left pleural effusion. Borderline ascending aorta. Mediastinal adenopathy. Atrophic left kidney. Renal cysts bilaterally. Cholelithiasis. Electronically Signed: Adrian Giles DO at 16:34 EDT , Assessment & Plan Assessment/Plan (1) Stroke-like symptoms: PLAN: Plan Assessment and plan 1. Strokelike symptoms that appear attributable to the posterior circulation with dizziness, lightheadedness and unsteadiness of gait. Mild right-sided weakness. Neurology consulted and tenecteplase not recommended. Patient will need an MRI as part of work-up. Patient has a pacemaker and it is uncertain if it is MRI compatible. We will need to determine this tomorrow morning. For now we will manage her stroke. Consult neurology. 2. Vague and nonspecific symptoms of fatigue, weakness and increasing dyspnea. Oxygen saturation remains at baseline. Known to have COPD and some pulmonary fibrosis. CT of the neck showing some mediastinal adenopathy. We will do a CT chest to rule determine if any other underlying pathology that may be responsible for his symptoms. Charges/Coding Visit Charges Inpatient E&M: 91791 Init Hosp L3
[2023-05-11] MEDS: Ipratropium/Albuterol Sulfate 3 ML AMPUL.NEB INHALATION (19:35)
[2023-05-11] MEDS: Budesonide Respules 0.5 MG/2 ML AMPUL.NEB. INHALATION (19:35)
[2023-05-11] MEDS: Heparin Injection (Vial) 5,000 UNIT/ML VIAL 5000 UNIT SC (22:16)
[2023-05-11] MEDS: 0.9% Saline Lock 10 ML Syringe IV (23:40)
[2023-05-11 23:54] LABS: Bedside Glucose 103 mg/dL (74-106)
[2023-05-12] VITALS (11 sets, daily range): BP systolic 138–186; BP diastolic 55–85; PULSE 54–67; RESP 16–18; TEMP 36.6–37; O2SAT 92–96; BMI 28.7
[2023-05-12] MEDS: Heparin Injection (Vial) 5,000 UNIT/ML VIAL 5000 UNIT SC (05:39)
[2023-05-12 06:23] LABS: Absolute Lymphocyte Count 1.21 X10^3/uL (0.83-4.51); Basophil# 0.04 X10^3/uL; Basophil% 0.6 % (0-1); Eosinophil# 0.41 X10^3/uL; Eosinophils% 6.7 % (0-5); Hemoglobin 11.4 g/dL (13.0-16.5); Lymphocyte # 1.21 X10^3/ul (0.83-4.51); Lymphocyte % 19.6 % (19-41); Mean Corp Hgb Conc 31.7 g/dL (32-36); Mean Corpuscular Hgb 31.4 pg (27.0-32.0); Mean Corpuscular Volume 99.2 fL (80-94); Mean Platelet Vol. 10.6 fl (6.2-12.0); Monocyte# 0.53 X10^3/uL; Monocyte% 8.6 % (0-10); NRBC Flagged by Analyzer 0 % (0-5); Neutrophil # 3.95 X10^3/uL (2.7-7.7); Neutrophil % 64.2 % (47-70); Platelet Count 172 K/mm3 (150-450); RBC Distribution Width CV 15.3 % (11.6-14.6); RBC Distribution Width SD 55.8 fl (35.1-43.9); Red Blood Count 3.63 M/mm3 (4.6-6.2); White Blood Count 6.2 K/mm3 (4.4-11.0)
[2023-05-12 06:53] LABS: ALB/GLOB Ratio 0.8 RATIO (0.9-2.4); AST(SGOT) 18 U/L (15-37); Alanine Aminotransfer ALT/SGPT 15 U/L (16-61); Albumin, Serum 3.1 g/dL (3.2-5.0); Alkaline Phosphatase 119 U/L (45-117); Anion Gap 7 (5-15); BUN 17 mg/dL (7-18); BUN/Creat Ratio 9.4 RATIO (10-20); Calcium,Total 8.9 mg/dL (8.5-10.1); Chloride 106 mmol/L (98-107); Cholesterol 168 mg/dL (200); Creatinine, Serum 1.81 mg/dL (0.70-1.30); EST Glomerular Filtration Rate 40 mL/min (>60); Est Glom Filt Rate - Afr Amer 48 mL/min (>60); Estimated Creatinine Clearance 33.78 ml/min; Globulin 3.7 g/dL (2.2-4.2); Glucose 109 mg/dL (74-106); High Density Lipoprotein 39 mg/dL; Potassium 3.8 mmol/L (3.5-5.1); Protein, Total 6.8 g/dL (6.4-8.2); Sodium Level 138 mmol/L (136-145); Triglycerides 179 mg/dL; Very Low Density Lipoprotein 36 mg/dL (5-40)
[2023-05-12 07:11] LABS: Bedside Glucose 116 mg/dL (74-106)
[2023-05-12] MEDS: Ipratropium/Albuterol Sulfate 3 ML AMPUL.NEB INHALATION (07:43)
[2023-05-12] MEDS: Budesonide Respules 0.5 MG/2 ML AMPUL.NEB. INHALATION (07:43)
[2023-05-12 08:14] LABS: Procalcitonin 0.07 ng/mL (0.00-0.09)
--- NOTE | 2023-05-12 09:41 | MRI_ITS ---
STUDY: MR Brain W/O Contrast 05/12/2023 4:57 PM REASON FOR EXAM: Male, 73 years old. dizziness COMPARISON: CT head done yesterday TECHNIQUE: Standardized multiplanar fat and water weighted pulse sequences were obtained. MR Brain W/O Contrast FINDINGS: There is mild cerebral atrophy with widening of the extra-axial spaces and ventricular dilatation. There are a limited number of small white matter hyperintensities, distributed throughout the deep white matter tracts of the cerebral hemispheres, consistent with mild chronic white matter ischemic changes. There is mild prominence of the vermian folia, consistent with atrophy of the vermis. The cerebellar hemispheres are normal. Normal bilateral basal ganglia. Normal thalami. There is no extra-axial fluid accumulation. Normal flow voids within the major intracranial circulation suggesting patency by spin echo criteria. Normal sella turcica, pituitary gland, infundibular stalk, optic chiasm and hypothalamus. Normal tectal plate and pineal gland. Normal midbrain, valentino and medulla. Normal basal cisterns. Normal bilateral temporal bones. Normal bilateral internal auditory canals. No demonstrated orbital abnormality, within the constraints of a routine brain study. Normal visualized paranasal sinuses. Normal calvarium and skull base. Normal visualized soft tissue structures. Normal visualized upper cervical spine. Aspect score 10 MRI/Brain without Contrast IMPRESSION: (NOT LISTED IN ORDER OF SIGNIFICANCE) There are no acute intracranial findings. Electronically Signed: Thompson Thacker MD at 16:58 EDT ,
[2023-05-12] MEDS: Magnesium Chloride 64 MG Delay Rel.Tablet 128 MG PO (10:13)
[2023-05-12] MEDS: Gabapentin 400 MG Capsule PO (10:13)
[2023-05-12] MEDS: Isosorbide Mononitrate 30 MG Tablet PO (10:13)
[2023-05-12] MEDS: buPROPion 75 MG Tablet PO (10:13)
[2023-05-12] MEDS: Aspirin 81 MG TAB.CHEW PO (10:13)
[2023-05-12 11:04] LABS: Thyroid Stim Hormone (TSH) 1.62 uIU/mL (0.358-3.74)
--- NOTE | 2023-05-12 11:40 | CASEMGMT ---
RN AARON Face to Face with patient for initial transition planning/care coordination assessment. RN CM introduced self and role at [facility]. Patient lying in bed, alert and oriented, at bedside. Patient willing to participate in assessment and is able to answer all questions appropriately. Care providers, pharmacy, and demographics verified. Patient wishes to discharge home, denies need for home health at this time. Patient states he has no further needs or concerns at this time. CM to follow for discharge planning needs that may arise. PCP: Diego NAVARRO Specialists: Artem, wire spooler; Idania, academic director; Kameron, nephrologsit Preferred Pharmacy: [facility] Insurance: Vinja Prescription Benefit: yes Living Will/HPOA: none LNOK: Living Arrangements: Patient lives with in a single story home with 3 steps to enter. Patient states he is independent Transportation: self, DME/HHC: Patient has nebulizer, pulse ox, and home oxygen through [employer] at 4lpm at HS and as needed with portability. No previous HHC or SNF. Will monitor for increase in home oxygen. Disposition Plan: Patient to discharge home with family support and follow-up plans in place. Kena COLLIER, RN, CM
[2023-05-12 12:59] LABS: Bedside Glucose 106 mg/dL (74-106)
--- NOTE | 2023-05-12 15:33 | CHAPLAIN ---
Type of Pastoral Visit _x__ Initial Visit ___ Follow-up Visit ___ On-call Visit ___ General Patient Visit ___ Spiritual Assessment ___ Family Conference ___ Bereavement ___ Rapid Response ___ Code Blue ___ Other (describe below) Pastoral Care Referral From _x__ Patient ___ Family ___ Nurse ___ Physician ___ Liquid Center Assembler ___ Electrolog Operator ___ Other (describe below) Sacrament/Intervention _x__ Active listening ___ Anointing ___ Taoism ___ Bereavement ___ Communion ___ Ca exploration ___ ___ Life review ___ Prayer ___ Reconciliation ___ Sacrament of Sick ___ Supportive presence ___ Wedding ___ Other (describe below) Pastoral Comments patient is resting in bed; pt states he did not sleep last night and is trying to do so now; offered to allow patient to rest and he agreed; pt states that he is doing fine now anyway
--- NOTE | 2023-05-12 17:07 | PCM.DC.SUM ---
Providers Date of Admission: 05/11/23 Date of Discharge: 05/12/23 Primary Care Physician: MELANIE Pulido Reason For Visit: DIZZINESS, WEAKNESS Diagnosis Discharge Diagnosis (1) Stroke-like symptoms: Status: Acute Code(s): R29.90 - Unspecified symptoms and signs involving the nervous system Medications at Discharge Home Medications gabapentin 400 mg capsule 400 mg PO BID pain 04/23/19 nitroglycerin 0.4 mg sublingual tablet 0.4 mg sublingual Q5-15M PRN CHEST PAIN 04/23/19 atorvastatin 10 mg tablet 10 mg PO DAILY cholesterol 04/27/19 mirtazapine 15 mg tablet 15 mg PO QHS Depression 12/03/19 carvedilol 25 mg tablet 25 mg PO Q8H HEART 09/28/22 furosemide 40 mg tablet 40 mg PO BID Water Pill 10/29/22 magnesium oxide 400 mg (241.3 mg magnesium) tablet 500 mg PO DAILY Supplimentation 12/02/22 isosorbide mononitrate 30 mg tablet,extended release 24 hr 30 mg PO DAILY SOB 12/24/22 bupropion HCl 150 mg 24 hr tablet, extended release 75 mg PO BID mental health 01/10/23 lorazepam 1 mg tablet (Ativan) 1 mg PO TID PRN anxiety #10 tabs 01/20/23 amlodipine 5 mg tablet 10 mg PO DAILY BP 01/26/23 potassium chloride 20 mEq tablet,extended release(part/cryst) 20 meq PO BID Supplimentation #180 tabs 01/31/23 fluticasone fur. 200 mcg-umeclid 62.5 mcg-vilant 25 mcg inhalat.powder (Trelegy Ellipta) 1 inh inhalation DAILY #3 ea 03/07/23 buspirone 5 mg tablet mg 05/11/23 aspirin 81 mg chewable tablet 81 mg PO BREAKFAST #0 tabs 05/12/23 hydralazine 50 mg tablet 50 mg PO BID 30 days #60 tabs 05/12/23 Hospital Course Operations None Procedures 2-D Echocardiogram and - (CT brain/CTA head and neck/CT chest/MRI brain ) Summary of Care Provided Minutes Spent on Discharge: 32 Hospital Course: Mr. Wolfe is a 73-year-old white male who presented to the emergency department at [facility] for dizziness, lightheadedness, and generalized weakness on 05/11/2023. He reported the symptoms and feeling somewhat off balance when ambulating. He denied any specific vertigo. While in the emergency department he mentions some heaviness in his right upper and lower extremity as well as some sensory changes in his right face. NIH was 3 in the ED consulted neurology who determined the patient did not meet need for tenecteplase. CT of the brain was unremarkable. CTA of the head and neck were unremarkable other than some mediastinal lymphadenopathy was noted in the upper lung ny. Given that abnormality a CT of his chest was performed and showed interstitial densities along the periphery along with fibrotic changes, very small left pleural effusion, borderline ascending aorta, mediastinal adenopathy and atrophic kidney. I reviewed previous imaging of his chest and he did appear to have previous mediastinal lymphadenopathy and does follow with outpatient pulmonary medicine for COPD and pulmonary fibrosis. He is not oxygen dependent at baseline. He was admitted to the telemetry floor for stroke work-up. He does have a pacemaker at baseline and this was cleared with MRI prior to MRI being performed. Echocardiogram was performed and showed an EF of 45% which is similar to his previous echocardiogram, diastolic dysfunction of that was indeterminate, study was negative for PFO or ASD any and moderate concentric LVH. His labs were overall unremarkable with a normal white count. He did have a mild eosinophilia which she had previously but tends to fluctuate. His chemistry panel showed baseline serum creatinine elevation between 1.8 and 2.0. Liver function was normal. ESR was slightly elevated at 11 and his CRP was slightly elevated at 13 however no gross abnormalities were noted. His lipid panel showed well-controlled cholesterol with an LDL of 93. A procalcitonin was performed given his general malaise complaints on further presentation and it was negative. His TSH was 1.26. His MRI was unremarkable for any acute findings but did show chronic involutional changes. Overall his symptoms were much better at the time of discharge however he was still with some fatigue. I am unclear if this was a viral syndrome or allergic reaction. The patient did state that he feels he may have had some allergies and that could have been contributing. He does have follow-up with his primary care physician in the next 2 weeks and I encouraged him to keep this appointment. We have also encouraged him to follow-up with neurology and information for follow-up was given at discharge. Home medication will remain the same. In addition to his current home medication as there is concern for TIA we did add a baby aspirin 81 mg daily. Discharge diagnoses Possible TIA Generalized weakness/malaise Mild eosinophilia Stage III COPD Nocturnal hypoxia History of nonischemic cardiomyopathy Mild CAD History of nonsustained VT status post ICD placement Dilated thoracic aorta status postrepair Hypertension Ongoing tobacco abuse Depression Anxiety History of trigeminal neuralgia History of testicular cancer Physical Exam Const alert, oriented x3, no apparent distress and well nourished Constitutional Narrative: Awake, older, white male, lying in bed, appears comfortable, at bedside, nontoxic General Appearance: cooperative, comfortable, well kempt and well developed Orientation / Consciousness: awake, oriented to person, oriented to place and oriented to time Exam Limitations: no limitations Nutritional Appearance: overweight HEENT normocephalic, head/scalp atraumatic and moist oral mucous membranes; Negative for hearing grossly normal bilaterally HEENT Narrative: Dentition is poor, Mallampati is 2-3, no thrush, mild hearing loss Eyes PERRL, EOMs intact bilaterally and conjunctivae normal Eyes Narrative: No scleral icterus Neck no lymphadenopathy and supple Neck Narrative: Trachea midline, no thyroid enlargement Resp normal respiratory effort, no retractions, no use of accessory muscles and No clear to auscultation bilaterally Resp Narrative: Diffusely diminished with few crackles at bases bilaterally Auscultation: crackles; Negative for rhonchi or wheezes Cardio regular rate, regular rhythm, S1 normal heart sound, S2 normal heart sound, no rub, no gallops and no clicks; Negative for no murmurs Cardio Narrative: 2 out of 6 systolic murmur loudest at right upper sternal border GI normal to inspection, nondistended, normoactive bowel sounds, soft to palpation and non-tender Extremity no clubbing, cyanosis or edema Extremity Narrative: Pedal pulses are 2+ Neuro oriented x3, moves all extremities, no focal motor deficits and No no sensory deficits noted Neuro Narrative: Very minimal sensory changes in V2 and V3 trigeminal nerve distribution of right face but all other cranial nerves are unremarkable, strength is 5 out of 5 bilateral upper and lower extremities, reflexes are normal Speech: speech normal Psych affect normal Psych Narrative: Very pleasant, appropriate Weight / BMI Weight Weight: 80.8 kg Body Mass Index (BMI) 28.7 ABG / Lab / Microbiology Data 05/12/23 06:02 05/12/23 06:02 Laboratory: Laboratory Results - last 24 hr 05/11/23 11:03: Hemoglobin A1c 5.7 H 05/11/23 16:14: Vitamin B12 234 05/11/23 18:04: POC Glucose 101 05/11/23 23:36: POC Glucose 103 05/12/23 06:02: WBC 6.2, RBC 3.63 L, Hgb 11.4 L, Hct 36.0 L, MCV 99.2 H, MCH 31.4, MCHC 31.7 L, RDW Std Deviation 55.8 H, RDW Coeff of Karen 15.3 H, Plt Count 172, MPV 10.6, Immature Gran % (Auto) 0.300, Neut % (Auto) 64.2, Lymph % (Auto) 19.6, Lewis % (Auto) 8.6, Eos % (Auto) 6.7 H, Baso % (Auto) 0.6, Absolute Neuts (auto) 4.0, Absolute Lymphs (auto) 1.21, Nucleated RBC % 0, Sodium 138, Potassium 3.8, Chloride 106, Carbon Dioxide 25.0, Anion Gap 7, BUN 17, Creatinine 1.81 H, Estim Creat Clear Calc 33.78, Est GFR (MDRD) Af Amer 48 L, Est GFR (MDRD) Non-Af 40 L, BUN/Creatinine Ratio 9.4 L, Glucose 109 H, Calcium 8.9, Total Bilirubin 0.30, AST 18, ALT 15 L, Alkaline Phosphatase 119 H, C-React Prot Ext Range 13.00 H, Total Protein 6.8, Albumin 3.1 L, Globulin 3.7, Albumin/Globulin Ratio 0.8 L, Triglycerides 179, Cholesterol 168, LDL Cholesterol 93, VLDL Cholesterol 36, HDL Cholesterol 39 L, Procalcitonin 0.07, TSH 1.62 05/12/23 06:43: POC Glucose 116 H 05/12/23 12:40: POC Glucose 106 Microbiology: Microbiology 05/11/23 14:23 Nasal Secretion SARS-CoV-2 & FLU Antigen (Rapid) - Final Radiography Diagnostic Testing: Radiology Impression Echocardiogram 05/11/23 14:32 Interpretation Summary Moderate concentric left ventricular hypertrophy. The left ventricular ejection fraction is 45 %. Diastolic function is indeterminate. Bubble contrast study is negative for PFO/ASD. Ordering Physician: Rosa Soler Referring Physician: ANNIKA CORTEZ Performed By: Christy Montes De Ocah and Student Brain MRI 05/12/23 09:41 IMPRESSION: (NOT LISTED IN ORDER OF SIGNIFICANCE) There are no acute intracranial findings. Electronically Signed: Thompson Thacker MD at 16:58 EDT Reading Location ID and State: [facility] / MD , Service support , Meaningful Use Info Meaningful Use Diagnoses (Choose all that apply): None applicable Discharge Plan Admission Admit Date/Time: 05/11/23 14:36 Primary Reason for Your Visit: R face numbness Attending Provider: Rebecca Hoover Primary Care Provider: Christopher Cortez Consulting Providers: Rosa Soler Discharge Orders/Prescriptions Prescriptions: New aspirin 81 mg Tablet,Chewable 81 mg PO BREAKFAST Qty: 0 0RF Continued nitroglycerin 0.4 mg tablet, sublingual 0.4 mg SUBLINGUAL Q5-15M PRN (Reason: CHEST PAIN) mirtazapine 15 mg tablet 15 mg PO QHS furosemide 40 mg tablet 40 mg PO BID Hold Instructions: Resume on 10/02/22. Rx Instructions: May take twice daily if needed. magnesium oxide 400 mg (241.3 mg magnesium) tablet 500 mg PO DAILY amlodipine 5 mg tablet 10 mg PO DAILY gabapentin 400 mg capsule 400 mg PO BID Patient Comments: neuropathy atorvastatin 10 MG tablet 10 mg PO DAILY carvedilol 25 mg tablet 25 mg PO Q8H isosorbide mononitrate 30 mg tablet extended release 24 hr 30 mg PO DAILY bupropion HCl 150 mg tablet extended release 24 hr 75 mg PO BID Patient Comments: TAKE 1 TABLET BY MOUTH ONCE DAILY lorazepam [Ativan] 1 mg tablet 1 mg PO TID PRN (Reason: anxiety) Qty: 10 0RF buspirone 5 mg tablet hydralazine 50 mg tablet 50 mg PO BID 30 Days Qty: 60 0RF Rx Instructions: Hold for SBP less than 110 mmHg potassium chloride 20 mEq tablet,ER particles/crystals 20 meq PO BID Qty: 180 3RF Trelegy Ellipta 200-62.5-25 mcg blister with device 1 inh inhalation DAILY Qty: 3 3RF Referrals / Follow Up: Danny Coyne MD [Non-Staff -Ordering Privileges] - Christopher Cortez PA [Primary Care Provider] - Within 1 Week Disposition Disposition (needs filled in before D/C Order can be placed): Home, Self Care Charges/Coding Visit Charges Inpatient E&M: 54840 Disch Hosp
== END 2023-05-12 17:58 | disposition home or self-care (01) | DRG 69 ==
LOC: ED 14:03 → PCU 17:41
PROVIDERS: Admitting Provider Internal Medicine; Emergency Provider Emergency Medicine; PCP Physician Assistant; Visit Provider Internal Medicine
DX: G45.9 Transient cerebral ischemic attack, unspecified (principal); I42.8 Other cardiomyopathies; I13.0 Hypertensive heart and chronic kidney disease with heart failure and stage 1 through stage 4 chronic kidney disease, or unspecified chronic kidney disease; I50.22 Chronic systolic (congestive) heart failure; D72.10 Eosinophilia, unspecified; J44.9 Chronic obstructive pulmonary disease, unspecified; I77.810 Thoracic aortic ectasia; N18.2 Chronic kidney disease, stage 2 (mild); F17.200 Nicotine dependence, unspecified, uncomplicated; E78.00 Pure hypercholesterolemia, unspecified; F41.9 Anxiety disorder, unspecified; R53.1 Weakness; R42 Dizziness and giddiness; Z79.51 Long term (current) use of inhaled steroids; Z95.0 Presence of cardiac pacemaker; R59.1 Generalized enlarged lymph nodes; N26.1 Atrophy of kidney (terminal); Z85.47 Personal history of malignant neoplasm of testis
CPT/HCPCS: 36415; 70450; 70496; 70498; 70551; 71046; 71250; 80048; 80053; 80061; 82607; 82962; 83036; 84145; 84443; 84484; 85025; 85610; 85652; 85730; 86140; 87428; 92610; 93005; 93306; 94640; 94668; 94762; 97162; 97166; 99285; J7030; Q9967; A4216

== ENCOUNTER 2023-09-05 12:34 | Observation (INO) | payer MEDICARE, SELFPAY ==
[2023-09-05] VITALS (11 sets, daily range): BP systolic 143–184; BP diastolic 74–89; PULSE 54–72; RESP 14–20; TEMP 36–36.6; O2SAT 90–100; BMI 28.5; BMI 27.5
--- NOTE | 2023-09-05 13:39 | EKG12_ITS ---
Test Reason : REPEAT FOR STROKE Blood Pressure : / mmHG Vent. Rate : 059 BPM Atrial Rate : 000 BPM P-R Int : 000 ms QRS Dur : 106 ms QT Int : 474 ms P-R-T Axes : 000 -22 162 degrees QTc Int : 469 ms Junctional rhythm Left ventricular hypertrophy with repolarization abnormality ( R in aVL , Sunny product , Romhilt-E stes ) Abnormal ECG Confirmed by SINAI BRAXTON, GUILLERMO ([id number]), publication editor NANI ALFARO ([id number]) on 09/14/2023 9:46:47 AM Referred By: WILLEM/PEDRO Confirmed By:GUILLERMO RAWLS MD
--- NOTE | 2023-09-05 13:41 | CT_ITS ---
STUDY: CTA HEAD AND NECK WITH CONTRAST REASON FOR EXAM: Male, 73 years old. Neuro deficit, acute, stroke suspected RADIATION DOSAGE (If Supplied By Facility): CTDIvol = ( 26.07 ) mGy, DLP = ( 768.09 ) mGycm TECHNIQUE: CT angiography was performed with a multi-detector CT scanner. Data acquisition was obtained from the skull base through the vertex following intravenous administration of IV 100mL [id number]-[id number]. MIP images were reconstructed from the axial data set. Post-processing of the angiographic images was performed, with multiplanar reformation and 3D reconstruction. Individualized dose optimization techniques were used for this CT. COMPARISON: Comparison is made with prior study dated May 11, 2023. FINDINGS: Normal bilateral petrous carotid arteries. There is calcified plaque formation of the right cavernous carotid artery, without a cross-sectional luminal stenosis. There is calcified plaque formation of the left cavernous carotid artery, without a cross-sectional luminal stenosis. Normal right A1 segments of the anterior cerebral artery. Normal left A1 segments of the anterior cerebral artery. Normal intact anterior communicating artery (ACOM). Normal bilateral A2 segments of the anterior cerebral arteries. Normal right M1 and M2 segments of the middle cerebral arteries, with a normal M1 bifurcation. Normal left M1 and M2 segments of the middle cerebral arteries, with a normal M1 bifurcation. Normal right posterior communicating artery (PCOM). Normal left posterior communicating artery (PCOM). Normal bilateral vertebral arteries. Normal basilar artery with a normal basilar bifurcation. The visualized bilateral superior cerebellar (SCA) arteries are normal. Normal bilateral P1, P2 and visualized P3 segments of the posterior cerebral arteries. There is no demonstrated aneurysm of the [place]. AORTIC ARCH: There is atherosclerotic calcific plaque formation of the aortic arch and great vessels arising from the aortic arch, without a hemodynamically significant stenosis. Ulcerative plaque is seen in the superior aspect of the aortic arch. There is a normal origin of the brachiocephalic, left common carotid, and left subclavian arteries. RIGHT CAROTID ARTERIES: Normal right common carotid artery (CCA). Normal right common carotid bulb. There is mild atherosclerotic plaque formation of the origin of the right internal carotid artery with less than 50% cross sectional diameter stenosis. Normal visualized cervical portion of the right internal carotid artery. Normal origin of the right external carotid artery (ECA). LEFT CAROTID ARTERIES: Normal left common carotid artery (CCA). Normal left common carotid bulb. There is mild atherosclerotic plaque formation of the origin of the left internal carotid artery with less than 50% cross sectional diameter stenosis. Normal visualized cervical portion of the left internal carotid artery. Normal origin of the left external carotid artery (ECA). VERTEBRAL ARTERIES: Normal bilateral vertebral arteries. CT/STROKE CTA Head AND Neck W/Con IMPRESSION: Mild calcific plaque at the origin of the right and left internal carotid arteries causing less than 50%. N.B. : The above Results were Read Back by James Pérez MD to Chicho Rivas and understanding confirmed on 09/05/2023 14:21:03 (ET). Electronically Signed: James Pérez MD at 14:22 EST ,
--- NOTE | 2023-09-05 13:41 | CT_ITS ---
STUDY: CT HEAD STROKE PROTOCOL W/O CONTRAST INJECTION REASON FOR EXAM: Male, 73 years old. Neuro deficit, acute, stroke suspected RADIATION DOSAGE (If Supplied By Facility): CTDIvol = ( 44.99 ) mGy, DLP = ( 796.11 ) mGycm TECHNIQUE: Transaxial CT imaging of the brain was performed without administration of intravenous contrast material. Individualized dose optimization techniques were used for this CT. COMPARISON: Comparison is made with prior study dated May 11, 2023. FINDINGS: Normal soft tissue structures. Normal calvarium. There is mild cerebral atrophy with widening of the extra-axial spaces and ventricular dilatation. Normal white matter tracts of the cerebral hemispheres. Normal basal ganglia and thalami. Normal brainstem. Normal cerebellum. There is no intracranial hemorrhage. There are no findings of an acute ischemic infarction. Atherosclerotic calcification of the cavernous portions of the internal carotid arteries bilaterally. Normal visualized paranasal sinuses. ASPECT score: 10 CT/STROKE Brain/Head without Cont IMPRESSION: Chronic involutional changes of the brain. N.B. : The above Results were Read Back by James Pérez MD to Chicho Rivas and understanding confirmed on 09/05/2023 14:07:35 (ET). Electronically Signed: James Pérez MD at 14:08 EST ,
--- NOTE | 2023-09-05 13:42 | EDS_ITS ---
HPI History of Present Illness Chief Complaint: Shortness of Breath Informant: patient Narrative Narrative: Patient said he went to work this morning and started feeling heaviness in his chest as well as dyspnea, and feeling poorly. He states he was standing and trimming meat at the time it started and not exerting himself. Came to the hospital for that reason. He states after he arrived in the ER, I started having numbness in his right arm and leg, worse in the leg, and they feel cold and heavy. He states he has numbness in the right lower face and that is chronic and unchanged. Denies any trouble speaking or understanding others. Denies having a headache. No loss of consciousness. Has a history of congestive heart failure and COPD wears nighttime 2 L of oxygen. Denies any recent illness or significant cough. [facility] Medical History (Updated 09/05/23 @ 16:[address] 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) Anxiety and depression Arthritis Atrial fibrillation Back pain Benign paroxysmal positional vertigo Bradycardia Cancer Chronic abdominal pain Chronic cough Chronic HFrEF (heart failure with reduced ejection fraction) COPD (chronic obstructive pulmonary disease) Essential hypertension GERD (gastroesophageal reflux disease) Hiatal hernia High cholesterol History of ulceration Hypertension Injury of head and neck Kidney disease Left ventricular apical thrombus Loss of hearing Myocardial infarct, old Non-ischemic cardiomyopathy Overweight (BMI 25.0-29.9) Pacemaker Pulmonary fibrosis Shortness of breath on exertion Smoker Stage 2 moderate COPD by GOLD classification Stroke/cerebrovascular accident Symptomatic bradycardia Testicular cancer Tobacco abuse Wears dentures Wears glasses Home Medications gabapentin 400 mg capsule 400 mg PO BID pain 04/23/19 [History Last Taken 09/28/22] nitroglycerin 0.4 mg sublingual tablet 0.4 mg sublingual Q5-15M PRN CHEST PAIN 04/23/19 [History Last Taken 04/25/19] atorvastatin 10 mg tablet 10 mg PO DAILY cholesterol 04/27/19 [History Last Take n 09/28/22] mirtazapine 15 mg tablet 15 mg PO QHS Depression 12/03/19 [History Last Taken 09/27/22] carvedilol 25 mg tablet 25 mg PO Q8H HEART 09/28/22 [History Last Taken 09/28/22] furosemide 40 mg tablet 40 mg PO BID Water Pill 10/29/22 [History Last Taken Unknown] magnesium oxide 400 mg (241.3 mg magnesium) tablet 500 mg PO DAILY Supplimentation 12/02/22 [History Last Taken Unknown] isosorbide mononitrate 30 mg tablet,extended release 24 hr 30 mg PO DAILY SOB 12/24/22 [History Last Taken Unknown] bupropion HCl 150 mg 24 hr tablet, extended release 75 mg PO BID mental health 01/10/23 [History Last Taken Unknown] lorazepam 1 mg tablet (Ativan) 1 mg PO TID PRN anxiety #10 tabs 01/20/23 [Rx Last Taken Unknown] amlodipine 5 mg tablet 10 mg PO DAILY BP 01/26/23 [History Last Taken Unknown] potassium chloride 20 mEq tablet,extended release(part/cryst) 20 meq PO BID Supplimentation #180 tabs 01/31/23 [Rx Last Taken Unknown] fluticasone fur. 200 mcg-umeclid 62.5 mcg-vilant 25 mcg inhalat.powder (Trelegy Ellipta) 1 inh inhalation DAILY #3 ea 03/07/23 [Rx Last Taken Unknown] buspirone 5 mg tablet mg 05/11/23 [History Last Taken Unknown] aspirin 81 mg chewable tablet 81 mg PO BREAKFAST #0 tabs 05/12/23 [Rx Last Taken Unknown] hydralazine 50 mg tablet 50 mg PO BID 30 days #60 tabs 05/12/23 [Rx Last Taken Unknown] Oxygen 2 LPM on extertion #1 ea 06/29/23 [Rx Last Taken Unknown] Allergy/AdvReac Type Severity Reaction Status Date / Time LASHONDA Inhibitors Allergy Severe Angioedema Verified 09/05/23 12:36 lisinopril Allergy Severe Angioedema Verified 09/05/23 12:36 Family History Father Cancer bone AAA (abdominal aortic aneurysm) Grandfather AAA (abdominal aortic aneurysm) Uncle AAA (abdominal aortic aneurysm) Surgical History H/O umbilical hernia repair History of AAA (abdominal aortic aneurysm) repair History of arthroscopic knee surgery History of corneal transplant History of foot surgery History of implantable cardiac defibrillator (ICD) History of knee surgery History of left heart catheterization (04/17/20) History of orchiectomy History of surgery on left wrist History of tonsillectomy Implantable cardioverter-defibrillator (ICD) in situ (08/21/20) Trigeminal neuralgia Social History household members: spouse Smoking Status: Current every day smoker tobacco type: cigarettes and cigars per week: 14 Tobacco: How many years used: 50 alcohol intake: never substance use type: does not use caffeine: Yes Type: coffee Number of servings: 5 ROS ROS ED Constitutional Constitutional ED: Reports malaise; Denies chills or fever(s) Eyes Eyes: Denies change in vision or diplopia ENT ENT ED: Denies rhinorrhea or sore throat Cardiovascular Cardiovascular: Reports chest pain and lightheadedness; Denies palpitations or syncope Respiratory/Chest Respiratory/Chest: Reports dyspnea; Denies cough Gastrointestinal Gastrointestinal: Denies abdominal pain, diarrhea, nausea or vomiting Genitourinary Genitourinary ED: Denies dysuria or hematuria Musculoskeletal Musculoskeletal: Denies back pain or neck pain Integumentary Denies abscess or rash Neurologic Neurologic: Reports paresthesias RUE and RLE; Denies abnormal speech, headache(s) or weakness Psychiatric Psychiatric: Denies anxiety or suicidal thoughts EXAM Physical Exam Const Vital Signs: 09/05/23 12:37 09/05/23 13:10 09/05/23 13:39 Temperature 96.8 F L Temperature Source Temporal Pulse Rate 58 L Respiratory Rate 18 Respiratory Effort Short of Breath Respiratory Depth Normal Respiratory Pattern Normal Blood Pressure 184/80 H Blood Pressure Mean 114 Pulse Ox 100 Oxygen Delivery Method Room Air Room Air Room Air 09/05/23 13:41 09/05/23 15:00 09/05/23 15:30 Temperature Temperature Source Pulse Rate 62 54 L 54 L Respiratory Rate 18 16 18 Respiratory Effort Respiratory Depth Respiratory Pattern Blood Pressure 183/89 H 169/78 H 170/76 H Blood Pressure Mean 120 108 107 Pulse Ox 99 96 98 Oxygen Delivery Method Room Air Room Air Room Air 09/05/23 16:00 09/05/23 16:00 Temperature Temperature Source Pulse Rate 56 L Respiratory Rate 18 Respiratory Effort Respiratory Depth Respiratory Pattern Blood Pressure 148/74 H 148/75 H Blood Pressure Mean 98 99 Pulse Ox 90 Oxygen Delivery Method Room Air Positive well nourished and well developed General Appearance ED: well developed and NAD HEENT Reports moist mucous membranes normocephalic and atraumatic Eyes PERRL and EOMs intact bilaterally Neck full ROM and supple Resp normal respiratory effort and clear to auscultation bilaterally Cardio regular rate, regular rhythm and no murmurs GI non-tender and non-distended Auscultation: normoactive bowel sounds Palpation: soft Back/Spine no CVA tenderness General Back: other FROM Extremity normal to inspection General Extremety ED: Negative for edema, pulses abnormal or tenderness General Extremity: Negative for edema or pulses abnormal Neuro oriented x3 and CN's II-XII intact bilaterally Neuro Narrative: Decreased sensation on the right side, no objective weakness. Normal [id number] and [id number] bilaterally. Sensorium / Orientation: awake and alert Skin no rashes or lesions noted and no wounds NIHSS NIHSS Initial: 1a Level of Consciousness: 0 1b LOC Questions (Score 2 if aphasic/stupor): 0 1c LOC Commands (Only score 1st attempt): 0 2 Best Gaze (If aphasic, use reflexive mvmts.): 0 3 Visual: 0 4 Facial Palsy: 0 5 Motor Arm Right (UN = amputation/fusion): 0 5 Motor Arm Left: 0 6 Motor Leg Right: 0 6 Motor Leg Left: 0 7 Limb ataxia (Only + if out of proportion): 0 8 Sensory (Aphasia/stupor=0 or 1, coma=2): 1 9 Best Language: 0 10 Dysarthria (mute, coma=2, intubated=UN): 0 11 Extinction and Inattention (only scored if +): 0 Total Score: 1 MDM MDM MDM Narrative Medical decision making narrative: Stroke team was called, further information available during this encounter with stroke neurology, the patient was last known well yesterday evening because he woke up with some of this coldness and numbness in his right arm and leg, although went away and came back. He agrees his NIH is 1, does not recommend thrombolytics given all of this which I agree with, CT angiography returned negative so no LVO and he does not require transfer, we can continue to work him up here. States he still does have the numbness. The states he was having some weakness in his right leg when he tried to get back into bed, he is moving it for me. We have 2 EKGs that are both nondiagnostic, there is artifact and nonspecific ST-T wave abnormalities, but nothing acute to suggest a STEMI. His initial troponin is within normal limits, his kidney function is a little worse than usual, his chest heaviness is a little better without intervention other than aspirin, performed after successful dysphagia screen, his blood pressures in the 160-170 range so I do not want to give him nitroglycerin to lower that in case he is having an acute stroke. Of note, aortic dissection a differential combining chest discomfort and stroke symptoms, he does not have a dissection of the aortic arch on the CT angiography. His symptoms are less compatible with this as well. Concern for possible unstable angina and/or acute stroke, will admit to the hospital. Lab Data Attestation: I reviewed the patient's lab results. Labs: Laboratory Results - last 24 hr 09/05/23 09/05/23 13:07 13:44 WBC 8.1 RBC 3.28 L Hgb 10.2 L Hct 32.5 L MCV 99.1 H MCH 31.1 MCHC 31.4 L RDW Std Deviation 56.9 H RDW Coeff of Karen 15.8 H Plt Count 187 MPV 11.5 Immature Gran % (Auto) 0.700 Neut % (Auto) 63.4 Lymph % (Auto) 18.9 L [place] % (Auto) 10.1 H Eos % (Auto) 6.4 H Baso % (Auto) 0.5 Absolute Neuts (auto) 5.1 Absolute Lymphs (auto) 1.53 Nucleated RBC % 0 PT 16.0 H INR 1.3 APTT 28.6 Sodium 138 Potassium 3.9 Chloride 104 Carbon Dioxide 28.0 Anion Gap 6 BUN 28 H Creatinine 2.04 H Estim Creat Clear Calc 29.97 Est GFR (MDRD) Af Amer 42 L Est GFR (MDRD) Non-Af 34 L BUN/Creatinine Ratio 13.7 Glucose 107 H Calcium 9.0 Troponin I High Sens 34 B-Natriuretic Peptide 467.3 H POC Glucose 83 Radiography Diagnostic Testing: Clinical Impression(s) from Imaging Studies Brain CT 09/05/23 13:41 IMPRESSION: Chronic involutional changes of the brain. N.B. : The above Results were Read Back by James Pérez MD to Chicho Rivas and understanding confirmed on 09/05/2023 14:07:35 (ET). Electronically Signed: James Pérez MD at 14:08 EST , ADDENDUM: 09/05/23 1415 IMPRESSION: Chronic involutional changes of the brain. N.B. : The above Results were Read Back by James Pérez MD to Chicho Rivas and understanding confirmed on 09/05/2023 14:07:35 (ET). Electronically Signed: James Pérez MD at 14:08 EST , Head/Neck CTA 09/05/23 13:41 IMPRESSION: Mild calcific plaque at the origin of the right and left internal carotid arteries causing less than 50%. N.B. : The above Results were Read Back by James Pérez MD to Chicho Rivas and understanding confirmed on 09/05/2023 14:21:03 (ET). Electronically Signed: James Pérez MD at 14:22 EST , ADDENDUM: 09/05/23 1429 IMPRESSION: Mild calcific plaque at the origin of the right and left internal carotid arteries causing less than 50%. N.B. : The above Results were Read Back by James Pérez MD to Chicho Rivas and understanding confirmed on 09/05/2023 14:21:03 (ET). Electronically Signed: James Pérez MD at 14:22 EST , Chest X-Ray 11/13/23 14:40 IMPRESSION: Thyromegaly. Persistent increased markings at the lung bases although these have improved. This is suggestive of a scarring at the lung bases. Electronically Signed: James Pérez MD at 14:51 EST , Rhythm Strip Rhythm Strip: Sinus Rhythm Rate: 60 Ectopy: None EKG Initial EKG: Attestation: I personally reviewed and interpreted this EKG as follows: Interpretation: Sinus Rhythm, No Acute Injury Pattern and Non-Specific ST Changes Prior EKG tracings: available for review (Similar to prior ST-T wave abnormalities) Follow-up EKG: Attestation: I personally reviewed and interpreted this EKG as follows: Interpretation: Sinus Rhythm, No Acute Injury Pattern and Non-Specific ST Changes Prior: Unchanged 3rd: Attestation: I personally reviewed and interpreted this EKG as follows: Interpretation: Sinus Rhythm, No Acute Injury Pattern and Non-Specific ST Changes Prior: Unchanged Management Discussion w/another healthcare provider: Hospitalist, Service Center Coordinator (Stroke neurology) and Radiologist Stroke Documentation Questions Stroke Team Activated: Yes Was Patient considered for Endovascular Intervention?: No-CTA negative, determined not to be an endovascular candidate IV Thrombolytic Administered: No (due to timing) Discharge Plan Dx/Rx/DC Orders Clinical Impression: Chest pain, CKD (chronic kidney disease), Intermittent paresthesia of right hand and foot Disposition Disposition: Acute Care Hospital [facility] Heart Score History: Moderately Suspicious ECG: Nonspecific Repolarization Age: >/= 65 years Risk Factors: 1 or 2 Risk Factors Troponin: </= Normal Limit Score: 5
--- NOTE | 2023-09-05 13:45 | EKG12_ITS ---
Test Reason : SOB Blood Pressure : / mmHG Vent. Rate : 056 BPM Atrial Rate : 000 BPM P-R Int : 000 ms QRS Dur : 102 ms QT Int : 524 ms P-R-T Axes : 000 -23 146 degrees QTc Int : 505 ms Junctional rhythm Left ventricular hypertrophy with repolarization abnormality ( R in aVL , [place] product , Romhilt-E stes ) Prolonged QT Abnormal ECG Confirmed by SINAI BRAXTON, GUILLERMO ([id number]), editor in chief NANI ALFARO ([id number]) on 09/14/2023 9:46:29 AM Referred By: WILLEM/PEDRO Confirmed By:GUILLERMO RAWLS MD
[2023-09-05 14:03] LABS: Bedside Glucose 83 mg/dL (74-106)
[2023-09-05] MEDS: Aspirin 81 MG TAB.CHEW 324 MG PO (14:05)
[2023-09-05 14:28] LABS: Absolute Lymphocyte Count 1.53 X10^3/uL (0.83-4.51); Absolute Neutrophil Count 5.1 X10^3/uL (2.0-7.7); Basophil# 0.04 X10^3/uL; Basophil% 0.5 % (0-1); Eosinophil# 0.52 X10^3/uL; Eosinophils% 6.4 % (0-5); Hematocrit 32.5 % (40-54); Hemoglobin 10.2 g/dL (13.0-16.5); Lymphocyte # 1.53 X10^3/ul (0.83-4.51); Lymphocyte % 18.9 % (19-41); Mean Corp Hgb Conc 31.4 g/dL (32-36); Mean Corpuscular Hgb 31.1 pg (27.0-32.0); Mean Corpuscular Volume 99.1 fL (80-94); Mean Platelet Vol. 11.5 fl (6.2-12.0); Monocyte# 0.82 X10^3/uL; Monocyte% 10.1 % (0-10); NRBC Flagged by Analyzer 0 % (0-5); Neutrophil # 5.12 X10^3/uL (2.7-7.7); Neutrophil % 63.4 % (47-70); Platelet Count 187 K/mm3 (150-450); RBC Distribution Width CV 15.8 % (11.6-14.6); RBC Distribution Width SD 56.9 fl (35.1-43.9); Red Blood Count 3.28 M/mm3 (4.6-6.2); White Blood Count 8.1 K/mm3 (4.4-11.0)
--- NOTE | 2023-09-05 14:40 | RAD_ITS ---
STUDY: X-RAY CHEST REASON FOR EXAM: Male, 73 years old. Neuro deficit, acute, stroke suspected; R numb TECHNIQUE: Single AP portable view of the chest. COMPARISON: Comparison is made with prior study dated May 11, 2023. FINDINGS: EKG electrodes are seen. Persistent increased markings at the lung bases suggestive of scarring. These have improved as compared to prior study. There is no demonstrated pleural abnormality. There is mild cardiac enlargement. A left-sided single lead pacemaker is seen. Normal mediastinum and leanne. Normal visualized pulmonary arteries. There is atherosclerotic calcification of the aortic arch with tortuosity. There are diffuse degenerative changes of the visualized thoracic spine. Normal visualized ribs, clavicles, and shoulders. There is no demonstrated abnormality of the visualized soft tissue structures of the upper abdomen. RAD/Chest 1 View IMPRESSION: Thyromegaly. Persistent increased markings at the lung bases although these have improved. This is suggestive of a scarring at the lung bases. Electronically Signed: James Pérez MD at 14:51 EST ,
[2023-09-05 14:45] LABS: Anion Gap 6 (5-15); BUN 28 mg/dL (7-18); BUN/Creat Ratio 13.7 RATIO (10-20); Chloride 104 mmol/L (98-107); Creatinine, Serum 2.04 mg/dL (0.70-1.30); EST Glomerular Filtration Rate 34 mL/min (>60); Est Glom Filt Rate - Afr Amer 42 mL/min (>60); Estimated Creatinine Clearance 29.97 ml/min; Glucose 107 mg/dL (74-106); Potassium 3.9 mmol/L (3.5-5.1); Sodium Level 138 mmol/L (136-145); Troponin-I HS 34 pg/mL (3.0-78.0); Troponin-I HS (w/2H Reflex) 34 pg/mL (3.0-78.0)
[2023-09-05 14:59] LABS: BNP,B-Type NATRIURETIC PEPTIDE 467.3 pg/mL (0-100)
[2023-09-05 15:01] LABS: International Normalized Ratio 1.3
[2023-09-05 15:02] LABS: Partial Thromboplast Time 28.6 Seconds (24.1-36.2)
--- NOTE | 2023-09-05 15:39 | CHAPLAIN ---
Type of Pastoral Visit ___ Initial Visit ___ Follow-up Visit ___ On-call Visit ___ General Patient Visit ___ Spiritual Assessment ___ Family Conference ___ Bereavement _x__ Rapid Response ___ Code Blue ___ Other (describe below) Pastoral Care Referral From ___ Patient ___ Family ___ Nurse ___ Physician ___ Livestock Counter ___ Room Service Attendant _x__ Other (describe below) Sacrament/Intervention ___ Active listening ___ Anointing ___ Hindu ___ Bereavement ___ Communion ___ Ca exploration ___ ___ Life review ___ Prayer ___ Reconciliation ___ Sacrament of Sick _x__ Supportive presence ___ Wedding ___ Other (describe below) Pastoral Comments stroke alert called and this patient was in ED; found spouse of pt in the room and offered presence and support; spouse declined having any needs at this point; pt is in CT; will remain available as needed
--- NOTE | 2023-09-05 16:13 | PCM.HP.STD ---
HPI - General General Date of Admission: 09/05/23 Date of Service: 09/05/23 Chief Complaint: Dyspnea, Chest heaviness, R sided paresthesias. HPI Narrative The patient is a 73 y/o M w/ PMHx: AAA s/p repair, Anxiety and Depression, PAF, BPPV, Hx symptomatic bradycardia s/p pacemaker status, COPD/Pulmonary fibrosis, CKD stage III per GFR trending, HFrEF s/p AICD/pacemaker status, GERD, Hx L apical thrombus, Hx Testicular CA, Tobacco use who presents to the [facility] ED on 09/05/23 with history of reportedly going to work this morning with onset of chest heaviness, dizziness and generalized fatigue and malaise which appeared at rest even while he was standing prompting eventual ED evaluation and when he arrived in the ED he noted R upper and lower extremity paresthesias, worse in the LLE which has been intermittently occurring since awakening on day of presentation although he does report it has intermittently occurred prior as well but more pronounced than any other time prior. He did also report unchanged chronic R facial paresthesias and noted these were unchanged from prior. Patient describes his chest heaviness as a pressure in the midsternal region with no radiation with dyspnea and mild dyspepsia rated 10 out of 10 in severity at its worst, currently resolved upon evaluation. He denied any recent headache or any other neurological changes nor any difficulty speaking. Work-up in the ED included T96.8, heart rate 58, BP 184/80, respiratory rate 18, 100% room air, CBC with WBC 8.1, hemoglobin 10.2, MCV 99.1, platelet 187 without marked shift, coags with PT 16 otherwise not marked appearing, BMP with BUN/creatinine 28/2.04, glucose 107, troponin 34, BNP 467.3, chest x-ray with evidence of thyromegaly as well as persistent increased markings at the lung bases suggestive of scarring, CTA head and neck with mild calcific plaque at the origin of the right and left internal carotid arteries causing less than 50% stenosis, CT of the brain with chronic involutional changes, EKG with sinus rhythm with nonspecific ST changes with no acute evidence of ischemia with similar follow-up EKG unchanged. In the ED patient administered aspirin 324 mg p.o. x1. Stroke alert was initiated and patient NIH stroke scale was noted to be 1 for mild to moderate sensory loss with recommended MRI of the brain if pacemaker conducive, CTA head and neck, telemetry monitoring, echocardiogram as well as therapy assessments in addition continued aspirin and statin. 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) Anxiety and depression Arthritis Atrial fibrillation Back pain Benign paroxysmal positional vertigo Bradycardia Cancer Chronic abdominal pain Chronic cough Chronic HFrEF (heart failure with reduced ejection fraction) COPD (chronic obstructive pulmonary disease) Essential hypertension GERD (gastroesophageal reflux disease) Hiatal hernia High cholesterol History of ulceration Hypertension Injury of head and neck Kidney disease Left ventricular apical thrombus Loss of hearing Myocardial infarct, old Non-ischemic cardiomyopathy Overweight (BMI 25.0-29.9) Pacemaker Pulmonary fibrosis Shortness of breath on exertion Smoker Stage 2 moderate COPD by GOLD classification Stroke/cerebrovascular accident Symptomatic bradycardia Testicular cancer Tobacco abuse Wears dentures Wears glasses Home Medications gabapentin 400 mg capsule 400 mg PO BID pain 04/23/19 [History Last Taken 09/28/22] nitroglycerin 0.4 mg sublingual tablet 0.4 mg sublingual Q5-15M PRN CHEST PAIN 04/23/19 [History Last Taken 04/25/19] atorvastatin 10 mg tablet 10 mg PO DAILY cholesterol 04/27/19 [History Last Taken 09/04/23] mirtazapine 15 mg tablet 15 mg PO QHS Depression 12/03/19 [History Last Taken 09/04/23] carvedilol 25 mg tablet 25 mg PO Q8H HEART 09/28/22 [History Last Taken 09/05/23] furosemide 40 mg tablet 40 mg PO BID Water Pill 10/29/22 [History Last Taken 09/05/23] isosorbide mononitrate 30 mg tablet,extended release 24 hr 30 mg PO DAILY SOB 12/24/22 [History Last Taken 09/05/23] bupropion HCl 150 mg 24 hr tablet, extended release 75 mg PO BID mental health 01/10/23 [History Last Taken Unknown] lorazepam 1 mg tablet (Ativan) 1 mg PO TID PRN anxiety #10 tabs 01/20/23 [Rx Last Taken Unknown] amlodipine 5 mg tablet 10 mg PO DAILY BP 01/26/23 [History Last Taken 09/05/23] potassium chloride 20 mEq tablet,extended release(part/cryst) 20 meq PO BID Supplimentation #180 tabs 01/31/23 [Rx Last Taken Unknown] fluticasone fur. 200 mcg-umeclid 62.5 mcg-vilant 25 mcg inhalat.powder (Trelegy Ellipta) 1 inh inhalation DAILY #3 ea 03/07/23 [Rx Last Taken Unknown] buspirone 5 mg tablet 5 mg PO BID mood 05/11/23 [History Last Taken Unknown] aspirin 81 mg chewable tablet 81 mg PO BREAKFAST #0 tabs 05/12/23 [Rx Last Taken 09/05/23] hydralazine 50 mg tablet 50 mg PO BID 30 days #60 tabs 05/12/23 [Rx Last Taken 09/05/23] Oxygen 2 LPM on extertion #1 ea 06/29/23 [Rx Last Taken Unknown] Allergy/AdvReac Type Severity Reaction Status Date / Time LASHONDA Inhibitors Allergy Severe Angioedema Verified 09/05/23 12:36 lisinopril Allergy Severe Angioedema Verified 09/05/23 12:36 Family History Father Cancer bone AAA (abdominal aortic aneurysm) Grandfather AAA (abdominal aortic aneurysm) Uncle AAA (abdominal aortic aneurysm) Surgical History H/O umbilical hernia repair History of AAA (abdominal aortic aneurysm) repair History of arthroscopic knee surgery History of corneal transplant History of foot surgery History of implantable cardiac defibrillator (ICD) History of knee surgery History of left heart catheterization (02/08/20) History of orchiectomy History of surgery on left wrist History of tonsillectomy Implantable cardioverter-defibrillator (ICD) in situ (08/21/20) Trigeminal neuralgia Social History (Updated 09/05/23 @ 19:[address] Jenni Matthews MD) household members: spouse Smoking Status: Former smoker Tobacco: How many years used: 50 how long ago did patient quit smoking: Quit 08/11/23. alcohol intake: never substance use type: does not use caffeine: Yes Type: coffee Number of servings: 5 ROS ROS Narrative Admission Review of Systems: CONSTITUTIONAL: No weight loss, fever, chills, + weakness or fatigue. HEENT: Eyes: No visual loss, blurred vision, double vision or yellow sclerae. Ears, Nose, Throat: No hearing loss, sneezing, congestion, runny nose or sore throat. SKIN: No rash or itching, lesions, wounds. CARDIOVASCULAR: + Chest heaviness/discomfort. No palpitations, edema, orthopnea, syncopal events. RESPIRATORY: + shortness of breath. No cough or sputum, wheezing, hemoptysis. GASTROINTESTINAL: No anorexia, nausea, vomiting or diarrhea, abdominal pain, melena, BRBPR. GENITOURINARY: No dysuria, frequency, urgency or retention. NEUROLOGICAL: + Intermittent paresthesias to the face as well as the right upper and lower extremity. No headache, syncope, paralysis, ataxia, focal weakness, change in bowel or bladder control, seizure. MUSCULOSKELETAL: + muscle, back pain, joint pain or stiffness. HEMATOLOGIC: + anemia, easy bleeding/bruising. LYMPHATICS: No enlarged nodes. No history of splenectomy. PSYCHIATRIC: + history of depression or anxiety. ENDOCRINOLOGIC: No reports of sweating, cold or heat intolerance. No polyuria or polydipsia. ALLERGIES: + History of angioedema. Vital Signs Vital Signs Vital Signs: 09/05/23 12:37 09/05/23 13:10 09/05/23 13:39 Temperature 96.8 F L Temperature Source Temporal Pulse Rate 58 L Respiratory Rate 18 Respiratory Effort Short of Breath Respiratory Depth Normal Respiratory Pattern Normal Blood Pressure 184/80 H Blood Pressure Mean 114 Pulse Ox 100 Oxygen Delivery Method Room Air Room Air Room Air 09/05/23 13:41 09/05/23 15:00 09/05/23 15:30 Temperature Temperature Source Pulse Rate 62 54 L 54 L Respiratory Rate 18 16 18 Respiratory Effort Respiratory Depth Respiratory Pattern Blood Pressure 183/89 H 169/78 H 170/76 H Blood Pressure Mean 120 108 107 Pulse Ox 99 96 98 Oxygen Delivery Method Room Air Room Air Room Air Weight Weight: 176 lb 8 oz Body Mass Index (BMI) 28.5 Physical Exam Narrative Physical Examination: General: Awake, alert, oriented x 3 and cooperative, seated upright in the ED bed, fatigued, denies any current chest discomfort, paresthesias currently abated. Skin: Normal color, normal turgor, no icterus, no cyanosis except occasional staged ecchymoses. HEENT: AT/NC, EOMI, PERRLA, MMM, no carotid bruits or JVD noted. Lungs: CTA bilaterally, moderate effort, mild decrease BL bases, no rales, ronchi or wheezing. Heart: Mildly bradycardic with regular rhythm; no gallop, rub audible. Abdomen: Soft, overweight, NTTP, ND, normal BS, no HSM. Extremities: No cyanosis, clubbing, or edema. Neurological: Patient awake, alert, oriented as noted, cognitive function intact; pupils equally reactive to light and accommodation, cranial nerves grossly normal, moving all 4 extremities, no focal deficits, strength preserved, finger-nose and [id number] appropriate, equivocal Babinski, sensation currently improved. Psychiatric: Affect appears normal, no acute evidence of depressive or anxiety feelings. Results Lab / Micro Data 09/05/23 13:07 09/05/23 13:07 Labs: Laboratory Results - last 24 hr 09/05/23 13:07: WBC 8.1, RBC 3.28 L, Hgb 10.2 L, Hct 32.5 L, MCV 99.1 H, MCH 31.1, MCHC 31.4 L, RDW Std Deviation 56.9 H, RDW Coeff of Karen 15.8 H, Plt Count 187, MPV 11.5, Immature Gran % (Auto) 0.700, Neut % (Auto) 63.4, Lymph % (Auto) 18.9 L, Travis % (Auto) 10.1 H, Eos % (Auto) 6.4 H, Baso % (Auto) 0.5, Absolute Neuts (auto) 5.1, Absolute Lymphs (auto) 1.53, Nucleated RBC % 0, PT 16.0 H, INR 1.3, APTT 28.6, Sodium 138, Potassium 3.9, Chloride 104, Carbon Dioxide 28.0, Anion Gap 6, BUN 28 H, Creatinine 2.04 H, Estim Creat Clear Calc 29.97, Est GFR (MDRD) Af Amer 42 L, Est GFR (MDRD) Non-Af 34 L, BUN/Creatinine Ratio 13.7, Glucose 107 H, Calcium 9.0, Troponin I High Sens 34, B-Natriuretic Peptide 467.3 H 09/05/23 13:44: POC Glucose 83 Rhythm Strip Rhythm Strip: Sinus Rhythm Rate: 60 Ectopy: None Radiology Impression Brain CT 09/05/23 13:41 IMPRESSION: Chronic involutional changes of the brain. N.B. : The above Results were Read Back by James Pérez MD to Chicho Rivas and understanding confirmed on 09/05/2023 14:07:35 (ET). Electronically Signed: James Pérez MD at 14:08 EST , ADDENDUM: 09/05/23 1415 IMPRESSION: Chronic involutional changes of the brain. N.B. : The above Results were Read Back by James Pérez MD to Chicho Rivas and understanding confirmed on 09/05/2023 14:07:35 (ET). Electronically Signed: James Pérez MD at 14:08 EST , Head/Neck CTA 09/05/23 13:41 IMPRESSION: Mild calcific plaque at the origin of the right and left internal carotid arteries causing less than 50%. N.B. : The above Results were Read Back by James Pérez MD to Chicho Rivas and understanding confirmed on 09/05/2023 14:21:03 (ET). Electronically Signed: James Pérez MD at 14:22 EST , ADDENDUM: 09/05/23 1429 IMPRESSION: Mild calcific plaque at the origin of the right and left internal carotid arteries causing less than 50%. N.B. : The above Results were Read Back by James Pérez MD to Chicho Rivas and understanding confirmed on 09/05/2023 14:21:03 (ET). Electronically Signed: James Pérez MD at 14:22 EST , Chest X-Ray 09/05/23 14:40 IMPRESSION: Thyromegaly. Persistent increased markings at the lung bases although these have improved. This is suggestive of a scarring at the lung bases. Electronically Signed: Jmaes Pérez MD at 14:51 EST , Assessment & Plan Assessment/Plan (1) Intermittent paresthesia of right hand and foot: (2) Chest pain: PLAN: Plan The patient is a 73 y/o M w/ PMHx: AAA s/p repair, Anxiety and Depression, PAF, BPPV, Hx symptomatic bradycardia s/p pacemaker status, COPD/Pulmonary fibrosis, CKD stage III per GFR trending, HFrEF s/p AICD/pacemaker status, GERD, Hx L apical thrombus, Hx Testicular CA, Tobacco use who presents to the [facility] ED on 09/05/23 with history of reportedly going to work this morning with onset of chest heaviness, dizziness and generalized fatigue and malaise which appeared at rest even while he was standing prompting eventual ED evaluation and when he arrived in the ED he noted R upper and lower extremity paresthesias, worse in the LLE which has been intermittently occurring since awakening on day of presentation. He did also report unchanged chronic R facial paresthesias and noted these were unchanged from prior. He denied any recent headache or any other neurological changes nor any difficulty speaking. #1. Right-sided paresthesias concerning for CVA: We will admit to PCU, given MRI brain 05/12/23 with device at that time his pacemaker/AICD is presumed MRI compatible. Will obtain MRI brain, recent bubble study ECHO without acute findings thus will not repeat, PT/OT/Speech/Nutrition evaluation per protocol. Will allow permissive HTN, maintain on asa for current recommendation from stroke neurology recommendation although given PAF history we will continue to monitor as patient may be more appropriate for anticoagulate therapy but will attempt review of previous cardiology notes to ascertain why this is not ongoing, statin w/ AM FLP, fall precautions. Mag, TSH, FLP, HgbA1c requested. Maintain on fall and aspiration precautions. Once work-up obtained low threshold to obtain Neurology consultation. Patient does have PAF history but is not chronically anticoagulated from note. #2. Dyspnea, chest heaviness, potential cardiac equivalent: EKG in ED with sinus rhythm with nonspecific ST changes x2, chest x-ray with evidence of thyromegaly as well as persistent increased markings at the lung bases suggestive of scarring, initial troponin 34. Will place on a monitored bed to assure no acute myocardial infarction with serial cardiac enzymes and EKGs. Magnesium level requested. FLP in AM. ASA. Will defer stress test concept until assure #1 evaluated. Will have PRN low dose fentanyl to avoid affective his pressure. #3. Incidentally noted thyromegaly: Chest x-ray with noted thyromegaly, TSH and free T4 requested, further imaging may be considered pending function results. #4. Chronic COPD/pulmonary fibrosis with chronic hypoxic respiratory failure (2L NC nightly): We will continue patient home nightly oxygen supplementation, will continue home trelegy therapy, PRN albuterol, HOB, IS parameters. #5. AAA: Status postrepair, continue aspirin, statin, temporally holding hypertensive regimen as noted, hemoglobin A1c requested as noted. #6 history symptomatic bradycardia: Status post pacemaker status, encourage continued outpatient follow-up with cardiology as previously arranged. #7. HFrEF: 05/12/2023 echocardiogram with moderate concentric LVH, LVEF 45%, diastolic function indeterminate, bubble contrast study negative for PFO/ASD. Will judiciously hydrate only if necessary, continue aspirin, statin, temporarily holding hypertensive regimen for permissive hypertension, add back once appropriate. #8. PAF: Per current list patient is not chronically anticoagulated, unclear specific reason, temporally holding Coreg for permissive hypertension but add back once appropriate. #9. History of last apical thrombus: Not currently chronically anticoagulated, most recent echocardiogram with no acute findings as noted 05/12/2023. #10. Chronic Kidney Disease Stage III per GFR trend: Admission BUN/Cr 28/2.04, baseline renal function 1.6-2.1, repeat BMP in AM. #11. Chronic macrocytic anemia: Admission hemoglobin 10.2, MCV 99.1, baseline hemoglobin primarily 10-11, stable, continue to trend. #12. Anxiety and depression: We will continue patient home mirtazapine, buspirone as well as Ativan as needed regimen. #13. Hypertension: We will maintain permissive hypertension with as needed agents per stroke protocol. #14. Hyperlipidemia: Continue home statin regimen. AM FLP. #15. Chronic neuropathy: We will continue patient home gabapentin regimen. #16. Tobacco Abuse: Encouraged cessation, inpatient consultation per RT, NR if desired. #17. History testicular cancer: s/p radiation treatment, considered in remission, encourage continued outpatient follow-up as previously arranged. #18. DVT prophylaxis: Heparin. #19. CODE status: Patient HCPOA and living will are not in place but his who is present he notes would be his decision-maker if this was necessary. Discussed CODE status at length including difference between FULL code, DNR-CCA and DNR-CC status. Following discussions about the differences in these status, requested Full Code status. Advanced Care Planning Face to Face Time: 16 minutes. Charges/Coding Visit Charges Inpatient E&M: 88574 Init Hosp L3 Procedures Hospitalists Procedures: 92139 Advncd Care Plan 30 Min
[2023-09-05 16:22] LABS: Reflex Troponin-HS? (from REC) Y
--- NOTE | 2023-09-05 16:29 | EKG12_ITS ---
Test Reason : REPEAT Blood Pressure : / mmHG Vent. Rate : 059 BPM Atrial Rate : 059 BPM P-R Int : 186 ms QRS Dur : 108 ms QT Int : 512 ms P-R-T Axes : 081 -27 079 degrees QTc Int : 506 ms Sinus bradycardia Left ventricular hypertrophy with repolarization abnormality ( R in aVL , [place] product , Romhilt-E stes ) Prolonged QT Abnormal ECG Confirmed by SINAI BRAXTON, GUILLERMO ([id number]), publications editor NANI ALFARO ([id number]) on 09/14/2023 10:01:28 AM Referred By: DUSTIN/WILLEM/ Confirmed By:GUILLERMO RAWLS MD
[2023-09-05] MEDS: fentaNYL 100 MCG/2 ML Ampul 50 MCG IV (17:03)
--- NOTE | 2023-09-05 17:17 | EKG12_ITS ---
Test Reason : AM EKG Blood Pressure : / mmHG Vent. Rate : 051 BPM Atrial Rate : 051 BPM P-R Int : 208 ms QRS Dur : 110 ms QT Int : 516 ms P-R-T Axes : 055 -25 139 degrees QTc Int : 475 ms Sinus bradycardia Left ventricular hypertrophy with repolarization abnormality ( R in aVL , Sokolow-Aguayo , Drift prod uct ) Abnormal ECG When compared with ECG of 06-SEP-2023 07:53, MANUAL COMPARISON REQUIRED, DATA IS UNCONFIRMED Confirmed by SINAI BRAXTON, GUILLERMO ([id number]), continuity editor NANI ALFARO ([id number]) on 09/14/2023 1:03:58 PM Referred By: Confirmed By:GUILLERMO RAWLS MD
[2023-09-05 17:19] LABS: Magnesium 2.4 mg/dL (1.6-2.6); Troponin-I HS 40 pg/mL (3.0-78.0)
[2023-09-05] MEDS: Ipratropium/Albuterol Sulfate 3 ML AMPUL.NEB INHALATION (18:59)
[2023-09-05] MEDS: Budesonide Respules 0.5 MG/2 ML AMPUL.NEB. INHALATION (18:59)
[2023-09-05 19:21] LABS: Troponin-I HS 45 pg/mL (3.0-78.0)
[2023-09-05] MEDS: Atorvastatin Calcium 10 MG Tablet PO (21:38)
[2023-09-05] MEDS: Potassium Chloride Oral Tablet 20 MEQ PO (21:38)
[2023-09-05] MEDS: Mirtazapine 15 MG Tablet PO (21:38)
[2023-09-05] MEDS: Gabapentin 400 MG Capsule PO (21:47)
[2023-09-05] MEDS: busPIRone 5 MG Tablet PO (21:47)
[2023-09-06] VITALS (14 sets, daily range): BP systolic 144–179; BP diastolic 57–83; PULSE 52–76; RESP 14–18; TEMP 36.4–36.7; O2SAT 90–100; BMI 27.5; BMI 27.9
[2023-09-06] MEDS: Acetaminophen 325 MG Tablet 650 MG PO (01:13)
[2023-09-06 06:28] LABS: Absolute Lymphocyte Count 1.58 X10^3/uL (0.83-4.51); Absolute Neutrophil Count 3.4 X10^3/uL (2.0-7.7); Basophil# 0.04 X10^3/uL; Basophil% 0.6 % (0-1); Eosinophil# 0.55 X10^3/uL; Eosinophils% 8.7 % (0-5); Hematocrit 32.4 % (40-54); Hemoglobin 10.3 g/dL (13.0-16.5); Lymphocyte # 1.58 X10^3/ul (0.83-4.51); Mean Corp Hgb Conc 31.8 g/dL (32-36); Mean Corpuscular Hgb 31.6 pg (27.0-32.0); Mean Corpuscular Volume 99.4 fL (80-94); Mean Platelet Vol. 10.9 fl (6.2-12.0); Monocyte# 0.68 X10^3/uL; Monocyte% 10.8 % (0-10); NRBC Flagged by Analyzer 0 % (0-5); Neutrophil # 3.43 X10^3/uL (2.7-7.7); Neutrophil % 54.4 % (47-70); Platelet Count 161 K/mm3 (150-450); RBC Distribution Width CV 15.9 % (11.6-14.6); RBC Distribution Width SD 57.7 fl (35.1-43.9); Red Blood Count 3.26 M/mm3 (4.6-6.2); White Blood Count 6.3 K/mm3 (4.4-11.0)
[2023-09-06] MEDS: Ipratropium/Albuterol Sulfate 3 ML AMPUL.NEB INHALATION ×2 (07:03→19:28)
[2023-09-06] MEDS: Budesonide Respules 0.5 MG/2 ML AMPUL.NEB. INHALATION ×2 (07:03→19:28)
[2023-09-06 07:21] LABS: ALB/GLOB Ratio 0.9 RATIO (0.9-2.4); AST(SGOT) 15 U/L (15-37); Alanine Aminotransfer ALT/SGPT 14 U/L (16-61); Alkaline Phosphatase 95 U/L (45-117); Anion Gap 6 (5-15); BUN 27 mg/dL (7-18); BUN/Creat Ratio 12.7 RATIO (10-20); Calcium,Total 8.4 mg/dL (8.5-10.1); Chloride 105 mmol/L (98-107); Cholesterol 165 mg/dL (200); Creatinine, Serum 2.12 mg/dL (0.70-1.30); EST Glomerular Filtration Rate 33 mL/min (>60); Est Glom Filt Rate - Afr Amer 40 mL/min (>60); Estimated Creatinine Clearance 28.84 ml/min; Globulin 3.5 g/dL (2.2-4.2); Glucose 99 mg/dL (74-106); High Density Lipoprotein 53 mg/dL; Potassium 4.1 mmol/L (3.5-5.1); Protein, Total 6.5 g/dL (6.4-8.2); Sodium Level 138 mmol/L (136-145); T4 Free Direct 0.88 ng/dL (0.76-1.46); Thyroid Stim Hormone (TSH) 1.65 uIU/mL (0.358-3.74); Triglycerides 81 mg/dL; Very Low Density Lipoprotein 16 mg/dL (5-40)
[2023-09-06 08:22] LABS: Hemoglobin A1c 5.8 % (3.8-5.6)
--- NOTE | 2023-09-06 10:00 | MRI_ITS ---
EXAM: MR HEAD WITHOUT INTRAVENOUS CONTRAST CLINICAL INDICATION: CVA TECHNIQUE: Multiplanar and multisequence MR images of the brain were obtained without intravenous contrast. COMPARISON: MRI brain 05/12/2023. FINDINGS: BRAIN AND EXTRA-AXIAL SPACES: Increased T2 signal intensity within the cerebral white matter suggestive of chronic microvascular change. No intra- or extra-axial hemorrhage. No evidence of acute infarct. No intracranial mass or mass effect. There is preservation of the newell/white matter interface. Posterior fossa structures are unremarkable. Ventricles are appropriate for age. No hydrocephalus. Basal cisterns are patent. SELLA: Normal. Normal sella turcica, pituitary gland, infundibular stalk, optic chiasm and hypothalamus. AUDITORY SYSTEM: Normal. The internal auditory canals are patent. BONES/JOINTS: Intact calvarium. SINUSES: Unremarkable as visualized. Clear. MASTOID AIR CELLS: Unremarkable as visualized. Clear. ORBITS: Unremarkable as visualized. Both globes, extraocular muscles, optic nerves and retrobulbar fat appear unremarkable. VASCULATURE: Unremarkable as visualized. Normal flow voids in the major intracranial circulation. MRI/Brain without Contrast IMPRESSION: 1. No acute intracranial abnormality. 2. Stable mild chronic microvascular changes. Electronically Signed: Christofer Britton MD at 16:02 EST ,
[2023-09-06] MEDS: busPIRone 5 MG Tablet PO ×2 (10:07→21:00)
[2023-09-06] MEDS: Aspirin 81 MG TAB.CHEW PO (10:07)
[2023-09-06] MEDS: Magnesium Chloride 64 MG Delay Rel.Tablet 128 MG PO (10:08)
[2023-09-06] MEDS: buPROPion (XL) 150 MG TABLET.XL PO (10:08)
[2023-09-06] MEDS: Potassium Chloride Oral Tablet 20 MEQ PO ×2 (10:08→21:00)
[2023-09-06] MEDS: Gabapentin 400 MG Capsule PO ×2 (10:11→21:00)
--- NOTE | 2023-09-06 17:23 | CASEMGMT ---
CHRIST WALKER NOTE: Intro role of CM to patient and ABBASI form explained re: Observation status for treatment of paresthesias, chest pain.? Explained hospitalization will be paid per his insurance policy for Outpatient billing?and condition will continue to be evaluated for Inpt necessity. Also let pt know that [facility] sends paper in the billing packet with their phone number if questions arise. Pt verbalizes understanding and does not have further questions. ?Form signed, copy made and placed in chart, and original given to pt. Yimi COLLIER RN CM
--- NOTE | 2023-09-06 17:42 | PCM.PN.HOSP ---
Reason for Visit Reason for Visit: Diagnoses Chest pain, unspecified (09/05/23) Paresthesia of skin (09/05/23) Subjective Subjective No acute events overnight. Patient seen at bedside this morning, present. Patient laying comfortably in bed, conversing normally, no acute distress. Patient does report continued intermittent chest heaviness this morning. Reports continued generalized fatigue and malaise as well. Patient and note that he had similar symptoms back in April of this year and work-up was largely negative. Patient is unsure as to why he is having his episodes. Also notes that his energy seems to wax and wane. He and his were in [place] about 2 weeks ago and he seemed to have very good energy at that time, was ambulating without issue. However since then he has seemed to require more sleep and has been generally weaker than his baseline. Otherwise denies any fevers or chills. No other acute issues at this time. Objective Data Objective Data Vital Signs: Vital Signs Temp Pulse Resp BP Pulse Ox O2 Del Method O2 Flow Rate 97.9 F 61 16 179/71 H 94 Room Air 4 09/06/23 14:00 09/06/23 15:42 09/06/23 15:42 09/06/23 15:42 09/06/23 15:42 09/06/23 15:42 09/06/23 07:03 Oxygen Flow Rate (L/min) 4 Oxygen Delivery Method Room Air Weight: 78.5 kg Body Mass Index (BMI) 27.9 Intake & Output: Intake and Output for Last 24 Hours 09/04/23 09/05/23 09/06/23 23:59 23:59 23:59 Intake Total 240 / 240 650 / 650 Balance 240 / 240 650 / 650 Lab / Micro Data 09/06/23 05:47 09/06/23 05:47 Labs: Laboratory Results - last 24 hr 09/05/23 18:45: Troponin I High Sens 45 09/06/23 05:47: WBC 6.3, RBC 3.26 L, Hgb 10.3 L, Hct 32.4 L, MCV 99.4 H, MCH 31.6, MCHC 31.8 L, RDW Std Deviation 57.7 H, RDW Coeff of Karen 15.9 H, Plt Count 161, MPV 10.9, Immature Gran % (Auto) 0.500, Neut % (Auto) 54.4, Lymph % (Auto) 25.0, [place] % (Auto) 10.8 H, Eos % (Auto) 8.7 H, Baso % (Auto) 0.6, Absolute Neuts (auto) 3.4, Absolute Lymphs (auto) 1.58, Nucleated RBC % 0, Sodium 138, Potassium 4.1, Chloride 105, Carbon Dioxide 27.0, Anion Gap 6, BUN 27 H, Creatinine 2.12 H, Estim Creat Clear Calc 28.84, Est GFR (MDRD) Af Amer 40 L, Est GFR (MDRD) Non-Af 33 L, BUN/Creatinine Ratio 12.7, Glucose 99, Hemoglobin A1c 5.8 H, Calcium 8.4 L, Total Bilirubin 0.30, AST 15, ALT 14 L, Alkaline Phosphatase 95, Total Protein 6.5, Albumin 3.0 L, Globulin 3.5, Albumin/Globulin Ratio 0.9, Triglycerides 81, Cholesterol 165, LDL Cholesterol 96, VLDL Cholesterol 16, HDL Cholesterol 53, TSH 1.65, Free T4 0.88 Radiography Diagnostic Testing: Radiology Impression Brain MRI 09/06/23 10:00 IMPRESSION: 1. No acute intracranial abnormality. 2. Stable mild chronic microvascular changes. Electronically Signed: Christofer Britton MD at 16:02 EST , Rhythm Strip Rhythm Strip: Sinus Rhythm Rate: 60 Ectopy: None Physical Exam Const alert, oriented x3, no apparent distress and average body habitus General Appearance: cooperative and comfortable HEENT normocephalic, head/scalp atraumatic, hearing grossly normal bilaterally, nasal mucous membranes and turbinates normal and moist oral mucous membranes Eyes PERRL, EOMs intact bilaterally and conjunctivae normal Neck full ROM, no lymphadenopathy and supple Lymph Lymphatic: no lymphadenopathy noted Chest inspection of chest normal Resp normal respiratory effort, normal air movement, no use of accessory muscles and clear to auscultation bilaterally Cardio regular rate, regular rhythm, no murmurs and peripheral pulses 2+ throughout GI normal to inspection, nondistended, normoactive bowel sounds, soft to palpation, non-tender and non-distended Back/Spine normal ROM Extremity normal to inspection, full ROM and no pedal edema Skin no rashes or lesions noted Psych mental status grossly normal Assessment & Plan Assessment/Plan (1) Chest pain: (2) Intermittent paresthesia of right hand and foot: PLAN: Plan Patient is a 73-year-old male who presented to [facility] ED on 09/05/2023 with chest heaviness, dizziness, generalized fatigue and intermittent right upper and lower extremity paresthesias. 1. Dizziness, intermittent right-sided paresthesias Admitted for CVA rule out. MRI brain 09/06 with no acute findings. Paresthesias have essentially resolved since admission, patient denies dizziness at rest. Unclear etiology of symptoms. Patient notably did have similar symptoms in April, had stroke work-up at that time that was negative. ? PT/OT/case management following as below, planning for home on discharge. Continue home aspirin and statin. Okay to discontinue NIH scoring at this point. 2. Chest pain Seems most likely musculoskeletal but does have risk factors for cardiac chest pain. EKG nonacute, troponins normal on admission. Last echo on 05/12/2023 showed EF 45%, no intracardiac shunt, mildly enlarged LA, moderate concentric LV hypertrophy. ? Stress test ordered, will complete tomorrow. If negative, will plan for discharge home tomorrow. Continue home medications as below. 3. Debility ? Patient seems to report worsening debility over last several weeks to months, etiology unclear at this point. PT/OT/case management following. Planning for home with possible home health care on discharge. Chronic medical conditions: ? COPD/pulmonary fibrosis on 2 L nasal cannula at night: Stable. Continue home inhalers. ? HFrEF, hypertension: Compensated. Continue home Lasix, Coreg, amlodipine, nitrate. ? CKD stage III: Baseline creatinine 2.0-2.2. Creatinine at baseline on admit. ? Chronic macrocytic anemia: Baseline hemoglobin 10-11. Hemoglobin at baseline on admit. ? Anxiety/depression: Continue home BuSpar, Ativan as needed, mirtazapine. ? Neuropathy: Continue home gabapentin. DVT prophylaxis: Lovenox CODE STATUS: Full code, verified Expected disposition: Home, tomorrow Total clinical time spent by myself addressing the patient's medical issues, reviewing all the data, and collaborating with patient's care team: 35 minutes. Charges/Coding Visit Charges Inpatient E&M: 34104 Subs Hosp L2
[2023-09-06] MEDS: 0.9% Saline Lock 10 ML Syringe IV (20:47)
[2023-09-06] MEDS: Carvedilol 25 MG Tablet PO (21:00)
[2023-09-06] MEDS: Atorvastatin Calcium 10 MG Tablet PO (21:00)
[2023-09-06] MEDS: Mirtazapine 15 MG Tablet PO (21:00)
[2023-09-07 01:05] VITALS: BMI 27.9
--- NOTE | 2023-09-07 02:30 | EKG12_ITS ---
Test Reason : CP ADMIN Blood Pressure : / mmHG Vent. Rate : 059 BPM Atrial Rate : 059 BPM P-R Int : 196 ms QRS Dur : 108 ms QT Int : 464 ms P-R-T Axes : 087 -28 097 degrees QTc Int : 459 ms Sinus bradycardia Left ventricular hypertrophy with repolarization abnormality ( R in aVL , [place] product , Romhilt-E stes ) Abnormal ECG When compared with ECG of 05-SEP-2023 16:56, MANUAL COMPARISON REQUIRED, DATA IS UNCONFIRMED Confirmed by SINAI BRAXTON, GUILLERMO ([id number]), news videotape editor NANI ALFARO ([id number]) on 09/14/2023 1:06:36 PM Referred By: Confirmed By:GUILLERMO RAWLS MD
[2023-09-07 04:00] VITALS: BP 156/64; PULSE 61; RESP 18; TEMP 36.8; O2SAT 98
[2023-09-07 06:00] VITALS: BMI 27.9
[2023-09-07] MEDS: Aspirin 81 MG TAB.CHEW PO (06:13)
[2023-09-07 08:15] VITALS: BP 155/62; PULSE 54; RESP 16; TEMP 36.4; O2SAT 95
[2023-09-07] MEDS: Potassium Chloride Oral Tablet 20 MEQ PO (08:19)
[2023-09-07] MEDS: Isosorbide Mononitrate 30 MG Tablet PO (08:19)
[2023-09-07] MEDS: busPIRone 5 MG Tablet PO (08:19)
[2023-09-07] MEDS: Carvedilol 25 MG Tablet PO (08:19)
[2023-09-07] MEDS: amLODIPine 5 MG Tablet 10 MG PO (08:20)
[2023-09-07] MEDS: Furosemide 40 MG Tablet PO (08:20)
[2023-09-07] MEDS: buPROPion (XL) 150 MG TABLET.XL PO (08:20)
[2023-09-07] MEDS: Magnesium Chloride 64 MG Delay Rel.Tablet 128 MG PO (08:20)
[2023-09-07] MEDS: Gabapentin 400 MG Capsule PO (08:24)
[2023-09-07 13:00] VITALS: PULSE 68; RESP 16
[2023-09-07] MEDS: Ipratropium/Albuterol Sulfate 3 ML AMPUL.NEB INHALATION (13:00)
[2023-09-07 14:00] VITALS: BMI 27.9
--- NOTE | 2023-09-07 15:20 | STRESSREP_ITS ---
Stress Test Report Pharmacologic/Lexiscan myocardial perfusion stress test. Indication; 73-year-old patient with chronic heart failure reduced ejection fraction Nonischemic cardiomyopathy CKD stage III CVA History of apical thrombus on prior echocardiogram Echo showed EF 45% Paroxysmal A-fib Stress protocol: Resting EKG demonstrates. Normal sinus rhythm. With inferolateral ST depression 0.4 mg of regadenoson was infused per usual protocol followed by rapid intravenous saline flush injection continuous EKG monitoring was performed. The maximum heart rate attained was 63 bpm bpm which was 42% of maximum predicted heart . Stress EKG showed[, no significant change from the resting EKG, with maximum heart rate of 63 bpm. Arrhythmia: No arrhythmia demonstrated Symptoms: Patient had symptoms of chest pain Blood pressure at rest: [168/74 mmHg blood pressure at the end of stress: 168/74 mmHg Myocardial perfusion protocol. [12 mCi ]of Technetium 99m Sestamibi was injected at rest. [ 0.4 mg ]of Regadenoson was infused per usual protocol peak infusion[34 mCi ]of Technetium 99m sestamibi was injected. Stress images were obtained stress and rest images were reconstructed and compared in the short axis vertical and horizontal long axis. Gated images were also obtained Perfusion SPECT analysis: Review of the images demonstrate normal uptake of sestamibi at rest, post stress images demonstrate similar uptake of sestamibi to the resting images, homogeneous tracer uptake With no evidence of reversible myocardial ischemia. Gated SPECT analysis: The gated ejection fraction is 48% LV wall motion showed, mild hypokinesia Conclusion: Lexiscan sestamibi study reveals no evidence of reversible myocardial ischemia Reduced LV systolic function with EF 48% With global LV hypokinesia Zenobia Pineda MD,FACC,[facility]
[2023-09-07 15:25] VITALS: BP 159/70; PULSE 52; RESP 16; TEMP 36.2; O2SAT 94
[2023-09-07] MEDS: Acetaminophen 325 MG Tablet 650 MG PO (15:29)
[2023-09-07] MEDS: 0.9% Saline Lock 10 ML Syringe IV (15:30)
--- NOTE | 2023-09-07 15:44 | DCINST_ITS ---
Discharge Instructions Diet Discharge Diet: No restrictions Activity Discharge Activity: No Restrictions Weight Bearing Status: Full weight bearing Follow Up Care Please Follow Up With: Christopher Cortez PA When: As needed Test Results: Test results from this visit will be discussed in further detail at your follow- up appointment, if applicable. Pending Tests Upon Discharge: None Discharge Plan Admission Admit Date/Time: 09/05/23 16:23 Primary Reason for Your Visit: Chest pain, paresthesias Attending Provider: Angel Luis Ruiz Primary Care Provider: Christopher Cortez Consulting Providers: Jenni Matthews Instructions Additional Instructions / Restrictions: Continue all home medications as previously prescribed. Follow-up with your primary care doctor as needed. Would recommend asking your primary care doctor for a referral to establish with a geriatrics medicine physician in the next few weeks. Discharge Orders/Prescriptions Prescriptions: New carvedilol 25 mg Tablet 25 mg PO BID 30 Days Qty: 60 0RF Continued nitroglycerin 0.4 mg tablet, sublingual 0.4 mg SUBLINGUAL Q5-15M PRN (Reason: CHEST PAIN) mirtazapine 15 mg tablet 15 mg PO QHS furosemide 40 mg tablet 40 mg PO BID Hold Instructions: Resume on 10/02/22. Rx Instructions: May take twice daily if needed. amlodipine 5 mg tablet 10 mg PO DAILY gabapentin 400 mg capsule 400 mg PO BID Patient Comments: neuropathy atorvastatin 10 MG tablet 10 mg PO DAILY carvedilol 25 mg tablet 25 mg PO Q8H isosorbide mononitrate 30 mg tablet extended release 24 hr 30 mg PO DAILY bupropion HCl 150 mg tablet extended release 24 hr 75 mg PO BID Patient Comments: TAKE 1 TABLET BY MOUTH ONCE DAILY lorazepam [Ativan] 1 mg tablet 1 mg PO TID PRN (Reason: anxiety) Qty: 10 0RF buspirone 5 mg tablet 5 mg PO BID aspirin 81 mg Tablet,Chewable 81 mg PO BREAKFAST Qty: 0 0RF hydralazine 50 mg tablet 50 mg PO BID 30 Days Qty: 60 0RF Rx Instructions: Hold for SBP less than 110 mmHg potassium chloride 20 mEq tablet,ER particles/crystals 20 meq PO BID Qty: 180 3RF Trelegy Ellipta 200-62.5-25 mcg blister with device 1 inh inhalation DAILY Qty: 3 3RF (DME) Oxygen 2 LPM on extertion See Rx Instructions .Route .MEDSUPPLY Qty: 1 0RF Patient Comments: 4l at hs Rx Instructions: As directed Referrals / Follow Up: Christopher Cortez, PA [Primary Care Provider] - Disposition Disposition (needs filled in before D/C Order can be placed): Home, Self Care
--- NOTE | 2023-09-07 15:48 | PCM.DC.SUM ---
Providers Date of Admission: 09/05/23 Date of Discharge: 09/07/23 Primary Care Physician: MELANIE Pulido Reason For Visit: PARESTHESIAS, CP/HEAVINESS Diagnosis Discharge Diagnosis (1) Chest pain: Status: Acute Code(s): R07.9 - Chest pain, unspecified (2) Intermittent paresthesia of right hand and foot: Status: Acute Code(s): R20.2 - Paresthesia of skin Medications at Discharge Home Medications gabapentin 400 mg capsule 400 mg PO BID pain 04/23/19 nitroglycerin 0.4 mg sublingual tablet 0.4 mg sublingual Q5-15M PRN CHEST PAIN 04/23/19 atorvastatin 10 mg tablet 10 mg PO DAILY cholesterol 04/27/19 mirtazapine 15 mg tablet 15 mg PO QHS Depression 12/03/19 carvedilol 25 mg tablet 25 mg PO Q8H HEART 09/28/22 furosemide 40 mg tablet 40 mg PO BID Water Pill 10/29/22 isosorbide mononitrate 30 mg tablet,extended release 24 hr 30 mg PO DAILY SOB 12/24/22 bupropion HCl 150 mg 24 hr tablet, extended release 75 mg PO BID mental health 01/10/23 lorazepam 1 mg tablet (Ativan) 1 mg PO TID PRN anxiety #10 tabs 01/20/23 amlodipine 5 mg tablet 10 mg PO DAILY BP 01/26/23 potassium chloride 20 mEq tablet,extended release(part/cryst) 20 meq PO BID Supplimentation #180 tabs 01/31/23 fluticasone fur. 200 mcg-umeclid 62.5 mcg-vilant 25 mcg inhalat.powder (Trelegy Ellipta) 1 inh inhalation DAILY #3 ea 03/07/23 buspirone 5 mg tablet 5 mg PO BID mood 05/11/23 aspirin 81 mg chewable tablet 81 mg PO BREAKFAST #0 tabs 05/12/23 hydralazine 50 mg tablet 50 mg PO BID 30 days #60 tabs 05/12/23 Oxygen 2 LPM on extertion #1 ea 06/29/23 carvedilol 25 mg tablet 25 mg PO BID 30 days #60 tabs 09/07/23 Hospital Course Operations None Procedures Nuclear stress test and - (MRI brain, chest x-ray, CT brain without contrast, CTA head/neck) Summary of Care Provided Minutes Spent on Discharge: 35 Hospital Course: Patient is a 73-year-old male who presented to [facility] ED on 09/05/2023 with chest heaviness, dizziness, generalized fatigue and intermittent right upper and lower extremity paresthesias. Short hospital course as noted below. Dizziness, intermittent right-sided paresthesias: Admitted for CVA rule out. MRI brain 09/06 with no acute findings. Paresthesias have essentially resolved since admission, patient denies dizziness at rest. Unclear etiology of symptoms. Patient notably did have similar symptoms in April, had stroke work-up at that time that was negative. ? PT/OT/case management followed. Patient was okay for home on discharge. Continued home aspirin and statin. Chest pain: Also admitted for ACS rule out. EKG nonacute, troponins normal on admission. Last echo on 05/12/2023 showed EF 45%, no intracardiac shunt, mildly enlarged LA, moderate concentric LV hypertrophy. Nuclear stress test on 09/07 with EF 45 to 50%, global LV dysfunction, no acute changes. ? ACS ruled out. Continue home Coreg, amlodipine, nitrate, Lasix on discharge. Debility: Patient and reported intermittent worsening debility over the last several weeks to months. states that 2 to 3 weeks prior to admission they were in [place], and patient was ambulating well and had good energy. However on returning home patient had significant decrease in energy and developed intermittent symptoms of chest pain and paresthesias. ? PT/OT/case management followed as above. PT and OT did recommend outpatient physical therapy as needed, order placed for patient. Concern for cognitive impairment with possible behavioral changes: Patient and reported history of cognitive impairment, not documented anywhere in chart. They seem to report more short-term memory loss than any degree of longer memory loss. Patient has never seen geriatric medicine, has never been worked up outpatient for this. Patient also had several vague complaints during admission, difficult to ascertain etiology of these concerns. ? Recommended that patient establish with geriatric medicine and have full evaluation done with them after discharge. Discharge diagnoses: ? Dizziness, intermittent right-sided paresthesias, CVA ruled out ? Chest pain, ACS ruled out ? Debility ? Concern for cognitive impairment with possible behavioral changes ? COPD/pulmonary fibrosis on 2 L nasal cannula at night ? HFrEF ? Hypertension ? CKD stage III ? Chronic macrocytic anemia ? Anxiety/depression ? Neuropathy Total clinical time spent by myself addressing the patient's discharge needs: 35 minutes. Physical Exam Const alert, oriented x3, no apparent distress and average body habitus General Appearance: cooperative and comfortable HEENT normocephalic, head/scalp atraumatic, hearing grossly normal bilaterally, nasal mucous membranes and turbinates normal and moist oral mucous membranes Eyes PERRL, EOMs intact bilaterally and conjunctivae normal Neck full ROM, no lymphadenopathy and supple Lymph Lymphatic: no lymphadenopathy noted Chest inspection of chest normal Resp normal respiratory effort, normal air movement, no use of accessory muscles and clear to auscultation bilaterally Cardio regular rate, regular rhythm, no murmurs and peripheral pulses 2+ throughout GI normal to inspection, nondistended, normoactive bowel sounds, soft to palpation, non-tender and non-distended Back/Spine normal ROM Extremity normal to inspection, full ROM and no pedal edema Skin no rashes or lesions noted Psych mental status grossly normal Weight / BMI Weight Weight: 78.5 kg Body Mass Index (BMI) 27.9 ABG / Lab / Microbiology Data 09/06/23 05:47 09/06/23 05:47 Radiography Diagnostic Testing: Radiology Impression Brain MRI 09/06/23 10:00 IMPRESSION: 1. No acute intracranial abnormality. 2. Stable mild chronic microvascular changes. Electronically Signed: Christofer Britton MD at 16:02 EST , D/C Instructions Discharge Diet: No restrictions Weight Bearing Status: Full weight bearing Pending Tests Upon Discharge: None Please Follow Up With: Christopher Cortez PA When: As needed Meaningful Use Info Meaningful Use Diagnoses (Choose all that apply): None applicable Discharge Plan Admission Admit Date/Time: 09/05/23 16:23 Primary Reason for Your Visit: Chest pain, paresthesias Attending Provider: Angel Luis Ruiz Primary Care Provider: Christopher Cortez Consulting Providers: Jenni Matthews Instructions Additional Instructions / Restrictions: Continue all home medications as previously prescribed. Follow-up with your primary care doctor as needed. Would recommend asking your primary care doctor for a referral to establish with a geriatrics medicine physician in the next few weeks. Discharge Orders/Prescriptions Prescriptions: New carvedilol 25 mg Tablet 25 mg PO BID 30 Days Qty: 60 0RF Continued nitroglycerin 0.4 mg tablet, sublingual 0.4 mg SUBLINGUAL Q5-15M PRN (Reason: CHEST PAIN) mirtazapine 15 mg tablet 15 mg PO QHS furosemide 40 mg tablet 40 mg PO BID Hold Instructions: Resume on 10/02/22. Rx Instructions: May take twice daily if needed. amlodipine 5 mg tablet 10 mg PO DAILY gabapentin 400 mg capsule 400 mg PO BID Patient Comments: neuropathy atorvastatin 10 MG tablet 10 mg PO DAILY carvedilol 25 mg tablet 25 mg PO Q8H isosorbide mononitrate 30 mg tablet extended release 24 hr 30 mg PO DAILY bupropion HCl 150 mg tablet extended release 24 hr 75 mg PO BID Patient Comments: TAKE 1 TABLET BY MOUTH ONCE DAILY lorazepam [Ativan] 1 mg tablet 1 mg PO TID PRN (Reason: anxiety) Qty: 10 0RF buspirone 5 mg tablet 5 mg PO BID aspirin 81 mg Tablet,Chewable 81 mg PO BREAKFAST Qty: 0 0RF hydralazine 50 mg tablet 50 mg PO BID 30 Days Qty: 60 0RF Rx Instructions: Hold for SBP less than 110 mmHg potassium chloride 20 mEq tablet,ER particles/crystals 20 meq PO BID Qty: 180 3RF Trelegy Ellipta 200-62.5-25 mcg blister with device 1 inh inhalation DAILY Qty: 3 3RF (DME) Oxygen 2 LPM on extertion See Rx Instructions .Route .MEDSUPPLY Qty: 1 0RF Patient Comments: 4l at hs Rx Instructions: As directed Referrals / Follow Up: Christopher Cortez PA [Primary Care Provider] - Disposition Disposition (needs filled in before D/C Order can be placed): Home, Self Care Charges/Coding Visit Charges Inpatient E&M: 83017 Disch Hosp >30min
--- NOTE | 2023-09-07 16:44 | CASEMGMT ---
Patient has order for discharge. CHRIST WALKER in to discuss needs at discharge. Therapy recommending additional therapy at discharge. Discussed outpatient therapy with patient. Patient denies need for therapy and has cane at home. Patient gave permission to call to discuss plan. RN AARON called Rosalind. Per she would like to see how patient does at home and may consider outpatient therapy. CHRIST WALKER informed that script for outpatient therapy can be provided to patient with [facility] information should they reconsider therapy. had no further questions or concerns. agreeable. CHRIST WALKER updated hospitalist, script received and provided in patient's discharge folder with [facility] information. RN AARON updated patient regarding conversation with and agreeable to plan. Patient had no further questions or concerns.
[2023-09-07 17:00] VITALS: BMI 27.9
== END 2023-09-07 15:47 | disposition home or self-care (01) ==
LOC: ED 16:24 → PCU 16:35
PROVIDERS: Admitting Provider Family Medicine; Emergency Provider Emergency Medicine; PCP Physician Assistant; Visit Provider Hospitalist
DX: R07.89 Other chest pain (principal); J44.9 Chronic obstructive pulmonary disease, unspecified; I42.8 Other cardiomyopathies; I13.0 Hypertensive heart and chronic kidney disease with heart failure and stage 1 through stage 4 chronic kidney disease, or unspecified chronic kidney disease; I50.22 Chronic systolic (congestive) heart failure; J96.11 Chronic respiratory failure with hypoxia; I48.0 Paroxysmal atrial fibrillation; J84.10 Pulmonary fibrosis, unspecified; N18.30 Chronic kidney disease, stage 3 unspecified; R20.2 Paresthesia of skin; D53.9 Nutritional anemia, unspecified; F41.9 Anxiety disorder, unspecified; R42 Dizziness and giddiness; F32.A Depression, unspecified; Z95.810 Presence of automatic (implantable) cardiac defibrillator; R53.81 Other malaise; K21.9 Gastro-esophageal reflux disease without esophagitis; Z87.891 Personal history of nicotine dependence; Z79.51 Long term (current) use of inhaled steroids; G62.9 Polyneuropathy, unspecified; E78.00 Pure hypercholesterolemia, unspecified; Z79.899 Other long term (current) drug therapy; Z79.82 Long term (current) use of aspirin; R06.00 Dyspnea, unspecified; Z99.81 Dependence on supplemental oxygen; E01.0 Iodine-deficiency related diffuse (endemic) goiter
CPT/HCPCS: 36415; 70450; 70496; 70498; 70551; 71045; 78452; 80048; 80053; 80061; 82962; 83036; 83735; 83880; 84439; 84443; 84484; 85025; 85610; 85730; 93005; 93017; 94640; 94668; 94762; 96374; 97162; 97166; 97530; 97802; 99221; 99252; 99285; 99406; A9500; Q9967; A4216; G0378; G0463; J2785

== ENCOUNTER → 2023-10-06 | Outpatient (CLI) | payer MEDICARE, SELFPAY ==
--- NOTE | 2023-10-06 13:57 | RAD_ITS ---
STUDY: X-RAY CHEST REASON FOR EXAM: Male, 73 years old. SOB TECHNIQUE: PA and lateral views of the chest. COMPARISON: 09/05/2023 FINDINGS: Left subclavian AICD which is unchanged. There are interstitial fibrotic changes of the lungs. There is no demonstrated pleural abnormality. There is moderate cardiac enlargement. Normal mediastinum and leanne. Normal visualized pulmonary arteries. Normal visualized aortic arch and descending thoracic aorta. Normal visualized thoracic spine. Normal visualized ribs, clavicles, and shoulders. There is no demonstrated abnormality of the visualized soft tissue structures of the upper abdomen. RAD/Chest PA and Lateral IMPRESSION: No change from 09/05/2023. Electronically Signed: Salty Victoria MD at 23:28 EST ,
[2023-10-06 14:25] LABS: Absolute Neutrophil Count 5.1 X10^3/uL (2.0-7.7); Basophil# 0.04 X10^3/uL; Basophil% 0.5 % (0-1); Eosinophil# 0.66 X10^3/uL; Eosinophils% 8.3 % (0-5); Hematocrit 32.7 % (40-54); Hemoglobin 10.1 g/dL (13.0-16.5); Lymphocyte % 18.8 % (19-41); Mean Corp Hgb Conc 30.9 g/dL (32-36); Mean Corpuscular Hgb 31.6 pg (27.0-32.0); Mean Corpuscular Volume 102.2 fL (80-94); Mean Platelet Vol. 10.2 fl (6.2-12.0); Monocyte# 0.68 X10^3/uL; Monocyte% 8.5 % (0-10); NRBC Flagged by Analyzer 0 % (0-5); Neutrophil # 5.08 X10^3/uL (2.7-7.7); Neutrophil % 63.5 % (47-70); Platelet Count 162 K/mm3 (150-450); RBC Distribution Width CV 15.9 % (11.6-14.6); RBC Distribution Width SD 59.9 fl (35.1-43.9)
[2023-10-06 14:45] LABS: Anion Gap 3 (5-15); BUN 37 mg/dL (7-18); BUN/Creat Ratio 16.4 RATIO (10-20); Calcium,Total 9.2 mg/dL (8.5-10.1); Chloride 105 mmol/L (98-107); Creatinine, Serum 2.25 mg/dL (0.70-1.30); EST Glomerular Filtration Rate 31 mL/min (>60); Est Glom Filt Rate - Afr Amer 37 mL/min (>60); Glucose 128 mg/dL (74-106); Potassium 3.3 mmol/L (3.5-5.1); Sodium Level 140 mmol/L (136-145)
[2023-10-06 14:48] LABS: BNP,B-Type NATRIURETIC PEPTIDE 409.5 pg/mL (0-100)
== END | disposition home or self-care (01) ==
PROVIDERS: PCP Physician Assistant; Referring Provider Nurse Practitioner Gerontology; Visit Provider Nurse Practitioner Gerontology
DX: R06.02 Shortness of breath (principal)
CPT/HCPCS: 36415; 71046; 80048; 83880; 85025

== ENCOUNTER 2023-10-29 14:48 | Inpatient (IN) | payer MEDICARE, SELFPAY ==
[2023-10-29] VITALS (9 sets, daily range): BP systolic 105–140; BP diastolic 46–69; PULSE 53–62; RESP 16–18; TEMP 35.9–36.3; O2SAT 93–96; BMI 31.6; BMI 31.4
--- NOTE | 2023-10-29 15:45 | EKG12_ITS ---
Test Reason : CP Blood Pressure : / mmHG Vent. Rate : 055 BPM Atrial Rate : 055 BPM P-R Int : 186 ms QRS Dur : 110 ms QT Int : 512 ms P-R-T Axes : 075 -19 051 degrees QTc Int : 489 ms Sinus bradycardia Left ventricular hypertrophy with repolarization abnormality ( R in aVL ) Prolonged QT Abnormal ECG Confirmed by SINAI BRAXTON, GUILLERMO ([id number]), supervising film or videotape editor JAIMIE FLAHERTY ([id number]) on 10/31/2023 8:45:30 AM Referred By: Confirmed By:GUILLERMO RAWLS MD
--- NOTE | 2023-10-29 15:46 | EDS_ITS ---
HPI History of Present Illness Chief Complaint: Hypotension Detail of Chief Complaint: Low blood pressure Informant: patient Narrative Narrative: Presents to the emergency department with complaint of low blood pressure today. Patient states that he woke up feeling well and was able to eat. He then took his medications this morning and about half hour later started feeling poorly. He states he felt numb and tingly from his head down to his feet. He developed some mild chest pressure which she chronically gets. checked his blood pressure and his systolic was in the low 100s which is abnormal for him as normally he is in the 160-170 systolic range. Patient was admitted last week to in hospital for pneumonia and he was found to have a low hemoglobin of 8. He is scheduled to have a colonoscopy in 3 days. Patient denies any blood in his stool or black tarry stool. Patient did have medication adjustments last week and he had his carvedilol increased and he was started on losartan as well. Patient denies urinary symptoms. He continues to have some cough. [facility] Medical History (Reviewed 10/06/23 @ 15:05 by Gregoria Vizcarra SOCIAL MEDIA SENIOR ASSOCIATE, SOCIAL MEDIA SENIOR ASSOCIATE-C) Abdominal aortic aneurysm (AAA) Aneurysm of infrarenal abdominal aorta Angioedema due to angiotensin converting enzyme inhibitor (LASHONDA-I) Anxiety and depression Arthritis Atrial fibrillation Back pain Benign paroxysmal positional vertigo Bradycardia Cancer Chronic abdominal pain Chronic cough Chronic HFrEF (heart failure with reduced ejection fraction) CKD (chronic kidney disease) COPD (chronic obstructive pulmonary disease) Essential hypertension GERD (gastroesophageal reflux disease) Hiatal hernia High cholesterol History of ulceration Hypertension Injury of head and neck Kidney disease Left ventricular apical thrombus Loss of hearing Myocardial infarct, old Non-ischemic cardiomyopathy Overweight (BMI 25.0-29.9) Pacemaker Pulmonary fibrosis Shortness of breath on exertion Smoker Stage 2 moderate COPD by GOLD classification Stroke/cerebrovascular accident Symptomatic bradycardia Testicular cancer Tobacco abuse Wears dentures Wears glasses Home Medications gabapentin 400 mg capsule 400 mg PO BID pain 04/23/19 [History Last Taken 09/28/22] atorvastatin 10 mg tablet 10 mg PO DAILY cholesterol 04/27/19 [History Last Taken 09/04/23] mirtazapine 15 mg tablet 15 mg PO QHS Depression 12/03/19 [History Last Taken 09/04/23] furosemide 40 mg tablet 40 mg PO BID Water Pill 10/29/22 [History Last Taken 09/05/23] isosorbide mononitrate 30 mg tablet,extended release 24 hr 30 mg PO DAILY SOB 12/24/22 [History Last Taken 09/05/23] potassium chloride 20 mEq tablet,extended release(part/cryst) 20 meq PO BID Supplimentation #180 tabs 01/31/23 [Rx Last Taken Unknown] buspirone 5 mg tablet 5 mg PO BID mood 05/11/23 [History Last Taken Unknown] aspirin 81 mg chewable tablet 81 mg PO BREAKFAST #0 tabs 05/12/23 [Rx Last Taken 09/05/23] Oxygen 2 LPM on extertion #1 ea 06/29/23 [Rx Last Taken Unknown] carvedilol 25 mg tablet 25 mg PO BID 30 days #60 tabs 09/07/23 [Rx Last Taken Unknown] fluticasone fur. 200 mcg-umeclid 62.5 mcg-vilant 25 mcg inhalat.powder (Trelegy Ellipta) 1 inh inhalation DAILY #3 ea 10/04/23 [Rx Last Taken Unknown] amlodipine 10 mg tablet 10 mg PO DAILY #30 tabs 10/06/23 [Rx Last Taken Unknown] nitroglycerin 0.4 mg sublingual tablet 0.4 mg sublingual Q5-15M PRN CHEST PAIN #25 tabs 10/06/23 [Rx Last Taken Unknown] hydralazine 100 mg tablet 100 mg PO TID this is a dose increase #270 tabs 10/12/23 [Rx Last Taken Unknown] Allergy/AdvReac Type Severity Reaction Status Date / Time LASHONDA Inhibitors Allergy Severe Angioedema Verified 10/29/23 14:49 lisinopril Allergy Severe Angioedema Verified 10/29/23 14:49 Family History Father Cancer bone AAA (abdominal aortic aneurysm) Grandfather AAA (abdominal aortic aneurysm) Uncle AAA (abdominal aortic aneurysm) Surgical History H/O umbilical hernia repair History of AAA (abdominal aortic aneurysm) repair History of arthroscopic knee surgery History of corneal transplant History of foot surgery History of implantable cardiac defibrillator (ICD) History of knee surgery History of left heart catheterization (02/08/20) History of orchiectomy History of surgery on left wrist History of tonsillectomy Implantable cardioverter-defibrillator (ICD) in situ (08/21/20) Trigeminal neuralgia Social History household members: spouse Smoking Status: Current every day smoker tobacco type: cigarettes and cigars p er week: 14 Tobacco: How many years used: 50 how long ago did patient quit smoking: Quit 08/11/23. alcohol intake: never substance use type: does not use caffeine: Yes Type: coffee Number of servings: 5 ROS ROS ED Review of Systems ROS Unobtainable: other Constitutional Constitutional ED: Reports lethargy; Denies chills, fever(s), sweats or weight loss Eyes Eyes: Denies blurry vision, change in vision or diplopia ENT ENT ED: Denies rhinorrhea or sore throat Cardiovascular Cardiovascular: Reports chest pain; Denies orthopnea or racing heartbeat Respiratory/Chest Respiratory/Chest: Denies cough, dyspnea, dyspnea on exertion, orthopnea or sputum Gastrointestinal Gastrointestinal: Denies abdominal pain, diarrhea, nausea or vomiting Genitourinary Genitourinary ED: Denies dysuria, hematuria or urinary frequency Musculoskeletal Musculoskeletal: Denies arthralgias, back pain, myalgias or neck pain Integumentary Denies abscess, Abrasions or rash Neurologic Neurologic: Reports paresthesias; Denies headache(s) or weakness Psychiatric Psychiatric: Denies anxiety, depression or suicidal thoughts Endocrine Endocrinology: Denies polydipsia, polyphagia or polyuria Hematologic/Lymphatic Hematologic/Lymphatic: Denies easy bleeding, easy bruising or lymphadenopathy Allergic/Immunologic Allergic/Immunologic ED: Denies mouth swelling, tongue swelling or urticaria EXAM Physical Exam Const Vital Signs: 10/29/23 14:49 10/29/23 15:50 10/29/23 15:50 Temperature 96.7 F L Temperature Source Temporal Pulse Rate 54 L 55 L Pulse Rate [Standing (for 1 minute prior to obtaining)] Respiratory Rate 18 18 Respiratory Pattern Normal Blood Pressure 107/52 L 107/46 L Blood Pressure [Lying] Blood Pressure [Sitting (for 1 minute prior to obtaining)] Blood Pressure [Standing (for 1 minute prior to obtaining)] Blood Pressure Mean 70 66 Blood Pressure Mean [Lying] Blood Pressure Mean [Sitting (for 1 minute prior to obtaining)] Blood Pressure Mean [Standing (for 1 minute prior to obtaining)] Pulse Ox 94 95 Oxygen Delivery Method Room Air Room Air 10/29/23 17:00 10/29/23 17:16 10/29/23 18:10 Temperature Temperature Source Pulse Rate 53 L Pulse Rate [Standing (for 1 minute prior to obtaining)] 60 Respiratory Rate 16 Respiratory Pattern Blood Pressure 114/53 L 119/51 L Blood Pressure [Lying] 105/47 L Blood Pressure [Sitting (for 1 minute prior to obtaining)] 115/53 L Blood Pressure [Standing (for 1 minute prior to obtaining)] 122/55 H Blood Pressure Mean 73 73 Blood Pressure Mean [Lying] 66 Blood Pressure Mean [Sitting (for 1 minute prior to obtaining)] 73 Blood Pressure Mean [Standing (for 1 minute prior to obtaining)] 77 Pulse Ox 96 Oxygen Delivery Method Positive well nourished and well developed General Appearance ED: well developed and NAD HEENT Reports TM's clear and moist mucous membranes normocephalic and atraumatic; Negative for trauma or tenderness Tympanic Membrane ED: Yes TM's clear Eyes PERRL and EOMs intact bilaterally General Eye ED: Negative for pale conjunctiva or scleral icterus Neck no lymphadenopathy, supple and no JVD General: Negative for tenderness Chest Wall inspection of chest normal and palpation of chest normal Chest: Negative for tenderness Resp normal respiratory effort and clear to auscultation bilaterally Effort and Inspection: Negative for respiratory distress or pain with movement Auscultation: Negative for rhonchi, wheezes or diminished lung sounds Cardio regular rate, regular rhythm, S1 normal heart sound, S2 normal heart sound and no murmurs Peripheral Pulses: pulses 2+ throughout GI normal to inspection, nondistended, normoactive bowel sounds, soft to palpation, non-distended and no masses GI Narrative: Mild diffuse tenderness. No rebound rigidity or peritoneal signs. Back/Spine no CVA tenderness and no thoracic nor lumbar tenderness Extremity normal to inspection General Extremety ED: Negative for edema General Extremity: Negative for edema Neuro oriented x3, CN's II-XII intact bilaterally, no sensory deficits noted and gait normal Sensorium / Orientation: awake, alert, oriented to person, oriented to place and oriented to time Motor Exam: strength 5/5 throughout and strength abnormal Psych mental status grossly normal Skin no rashes or lesions noted and no wounds MDM MDM MDM Narrative Medical decision making narrative: Patient presents with complaint not feeling well and lower than usual blood pressures. Patient recently had medication adjustments made. Patient also recently treated for pneumonia. He also presents with chest pain which is a chronic complaint for him. EKG obtained arrival showed sinus rhythm with a rate of 55 bpm with LVH. CBC with differential obtained showed white count 9.4 with hemoglobin 9.7 and platelet count of 193. Chemistries unremarkable. BUN was 55 and creatinine 3.04. Lactate was normal at 1.2. LFTs and lipase were normal. Urinalysis was normal. Patient received a liter of ascitic fluid bolus. He did feel somewhat improved after that. Orthostatic vital signs were negative. Discussed case with patient and his and recommended admission for IV hydration. Also recommended admission for management of his blood pressure medication. Case discussed with hospitalist who will evaluate patient for admission for CHERY Lab Data Attestation: I reviewed the patient's lab results. Labs: Laboratory Results - last 24 hr 10/29/23 10/29/23 15:54 18:15 WBC 9.4 RBC 3.05 L Hgb 9.7 L Hct 30.4 L MCV 99.7 H MCH 31.8 MCHC 31.9 L RDW Std Deviation 59.5 H RDW Coeff of Karen 16.2 H Plt Count 193 MPV 10.5 Immature Gran % (Auto) 1.800 H Neut % (Auto) 65.0 Lymph % (Auto) 18.6 L [place] % (Auto) 10.0 Eos % (Auto) 4.1 Baso % (Auto) 0.5 Absolute Neuts (auto) 6.1 Absolute Lymphs (auto) 1.76 Nucleated RBC % 0 Sodium 139 Potassium 4.1 Chloride 101 Carbon Dioxide 32.0 Anion Gap 6 BUN 55 H Creatinine 3.04 H Estim Creat Clear Calc 20.11 Est GFR (MDRD) Af Amer 26 L Est GFR (MDRD) Non-Af 22 L BUN/Creatinine Ratio 18.1 Glucose 113 H Lactic Acid 1.2 Calcium 8.2 L Total Bilirubin 0.30 AST 12 L ALT 15 L Alkaline Phosphatase 70 Total Protein 6.5 Albumin 3.2 Globulin 3.3 Albumin/Globulin Ratio 1.0 Lipase 33 Urine Color Yellow Urine Clarity Clear Urine pH 6.5 Ur Specific [place] 1.010 Urine Protein Negative Urine Glucose (UA) Normal Urine Ketones Negative Urine Occult Blood Negative Urine Nitrite Negative Urine Bilirubin Negative Urine Urobilinogen Normal Ur Leukocyte Esterase Negative Urine RBC 0 SEEN Urine WBC 0 SEEN Ur Squamous Epith Cells 0 SEEN Urine Bacteria 0 SEEN Urine Mucus 0 SEEN Radiography Diagnostic Testing: Clinical Impression(s) from Imaging Studies Chest X-Ray 10/29/23 15:52 IMPRESSION: Mild left pleural effusion. Possible mild basilar atelectasis/ infiltrates. Mild cardiomegaly. Slight central pulmonary vascular prominence. Electronically Signed: Adrian Giles DO at 16:23 EST Reading Location ID and State: [facility] / [place] Tel [phone], Service support , Discharge Plan Triage Chief Complaint: Hypotension ED Provider: Fiona Bhatia Dx/Rx/DC Orders Clinical Impression: CHERY (acute kidney injury), Dizziness, History of hypertension Prescriptions: No Action mirtazapine 15 mg tablet 15 mg PO QHS furosemide 40 mg tablet 40 mg PO BID Hold Instructions: Resume on 10/02/22. Rx Instructions: May take twice daily if needed. nitroglycerin 0.4 mg tablet, sublingual 0.4 mg SUBLINGUAL Q5-15M PRN (Reason: CHEST PAIN) Qty: 25 3RF amlodipine 10 mg tablet 10 mg PO DAILY Qty: 30 11RF gabapentin 400 mg capsule 400 mg PO BID Patient Comments: neuropathy atorvastatin 10 MG tablet 10 mg PO DAILY isosorbide mononitrate 30 mg tablet extended release 24 hr 30 mg PO DAILY buspirone 5 mg tablet 5 mg PO BID aspirin 81 mg Tablet,Chewable 81 mg PO BREAKFAST Qty: 0 0RF Hold Instructions: d/t bleed/anemia carvedilol 25 mg Tablet 25 mg PO BID 30 Days Qty: 60 0RF potassium chloride 20 mEq tablet,ER particles/crystals 20 meq PO BID Qty: 180 3RF (DME) Oxygen 2 LPM on extertion See Rx Instructions .Route .MEDSUPPLY Qty: 1 0RF Patient Comments: 4l at hs Rx Instructions: As directed Trelegy Ellipta 200-62.5-25 mcg blister with device 1 inh inhalation DAILY Qty: 3 3RF Hold Instructions: cost hydralazine 100 mg tablet 100 mg PO TID Qty: 270 3RF Primary Care Provider: Christopher Cortez Referrals: Christopher Cortez, MELANIE [Primary Care Provider] - Disposition Disposition: Acute Care Hospital [facility]
--- NOTE | 2023-10-29 15:52 | RAD_ITS ---
INDICATION: hypotension EXAMINATION/TECHNIQUE: X-RAY - XR Chest 1 View COMPARISON: October 06, 2023 FINDINGS: LINES/DEVICES: Stable left-sided pacemaker. LUNGS: Mild left pleural effusion. Possible mild basilar atelectasis/ infiltrates. No pneumothorax. MEDIASTINUM AND CARDIOVASCULAR STRUCTURES: Cardiac silhouette is slightly enlarged. Slight central pulmonary vascular prominence. Central airways and mediastinal contour are unremarkable. BONES AND SOFT TISSUES: Unremarkable. RAD/Chest 1 View (Portable) IMPRESSION: Mild left pleural effusion. Possible mild basilar atelectasis/ infiltrates. Mild cardiomegaly. Slight central pulmonary vascular prominence. Electronically Signed: Adrian Giles DO at 16:23 EST Reading Location ID and State: [facility] / [place] Tel [phone], Service support ,
[2023-10-29 16:13] LABS: Absolute Lymphocyte Count 1.76 X10^3/uL (0.83-4.51); Absolute Neutrophil Count 6.1 X10^3/uL (2.0-7.7); Basophil# 0.05 X10^3/uL; Basophil% 0.5 % (0-1); Eosinophil# 0.39 X10^3/uL; Eosinophils% 4.1 % (0-5); Hematocrit 30.4 % (40-54); Hemoglobin 9.7 g/dL (13.0-16.5); Lymphocyte # 1.76 X10^3/ul (0.83-4.51); Lymphocyte % 18.6 % (19-41); Mean Corp Hgb Conc 31.9 g/dL (32-36); Mean Corpuscular Hgb 31.8 pg (27.0-32.0); Mean Corpuscular Volume 99.7 fL (80-94); Mean Platelet Vol. 10.5 fl (6.2-12.0); Monocyte# 0.94 X10^3/uL; NRBC Flagged by Analyzer 0 % (0-5); Neutrophil # 6.13 X10^3/uL (2.7-7.7); Platelet Count 193 K/mm3 (150-450); RBC Distribution Width CV 16.2 % (11.6-14.6); RBC Distribution Width SD 59.5 fl (35.1-43.9); Red Blood Count 3.05 M/mm3 (4.6-6.2); White Blood Count 9.4 K/mm3 (4.4-11.0)
[2023-10-29 16:52] LABS: AST(SGOT) 12 U/L (15-37); Alanine Aminotransfer ALT/SGPT 15 U/L (16-61); Albumin, Serum 3.2 g/dL (3.2-5.0); Alkaline Phosphatase 70 U/L (45-117); Anion Gap 6 (5-15); BUN 55 mg/dL (7-18); BUN/Creat Ratio 18.1 RATIO (10-20); Calcium,Total 8.2 mg/dL (8.5-10.1); Chloride 101 mmol/L (98-107); Creatinine, Serum 3.04 mg/dL (0.70-1.30); EST Glomerular Filtration Rate 22 mL/min (>60); Est Glom Filt Rate - Afr Amer 26 mL/min (>60); Estimated Creatinine Clearance 20.11 ml/min; Globulin 3.3 g/dL (2.2-4.2); Glucose 113 mg/dL (74-106); Lactic Acid 1.2 mmol/L (0.4-1.9); Lipase 33 U/L (13-75); Potassium 4.1 mmol/L (3.5-5.1); Protein, Total 6.5 g/dL (6.4-8.2); Sodium Level 139 mmol/L (136-145)
[2023-10-29] MEDS: 0.9% Normal Saline (1000mL) 1,000 ML 150 ML IV ×2 (17:15→22:21)
[2023-10-29 18:56] LABS: Bacteria 0 SEEN /hpf (None Seen); Mucous, Urine 0 SEEN /hpf (<or=2+); Red Blood Cells-Urine 0 SEEN /hpf (0-5); Squamous Epithelial Cells - UA 0 SEEN /hpf (0-5); White Blood Cells 0 SEEN /hpf (0-5)
[2023-10-29 19:06] LABS: Color, Urine Yellow (Yellow); Glucose, Dipstick Normal (Normal); Ketone-Dipstick Negative (Negative); Leukocyte Esterase-Dipstick Negative /ul (Negative); Nitrite-Dipstick Negative (Negative); Occult Blood-Urine Negative /ul (Negative); Protein-Dipstick Negative (Negative); Urine Bilirubin Dipstick Negative (Negative); Urine Clarity Clear (Clear); Urine Urobilinogen Normal (Normal); Urine pH 6.5 (5.0 - 8.0)
--- NOTE | 2023-10-29 19:56 | PCM.HP.STD ---
[facility] - General General Date of Admission: 10/29/23 Date of Service: 10/29/23 Chief Complaint: Low Blood Pressure, Chest Pressure and Lightheadedness [facility] Narrative INNA WOLFE, is a 73 M with a past medical history of essential hypertension, hyperlipidemia, obesity with a BMI of 31.6 this admission, extensive history of tobacco abuse; with subsequent COPD, chronic hypoxic respiratory failure; on 2 L nasal cannula continuously, history of pulmonary fibrosis, coronary artery disease; status post NM with left heart catheterization (2019), history of chronic systolic CHF; with reduced left ventricular ejection fraction, history of nonischemic cardiomyopathy, history of left ventricular apical thrombus, history of arrhythmia; status post PPM/AICD (2019), chronic kidney disease; stage IV with baseline creatinine of 2.25 mg/dL last admission, history of testicular cancer; status post Left orchiectomy with subsequent radiation, history of CVA, history of trigeminal neuralgia; status post nerve ablation, history of infrarenal abdominal aortic aneurysm; status postrepair, history of angioedema due to LASHONDA inhibitor, BPPV, GERD, depression with anxiety, osteoarthritis; with chronic back pain and recent admission to another local hospital approximately 8 days ago where he was diagnosed with pneumonia along with a hemoglobin of ~8 g/dL with scheduled colonoscopy 3 days from now who presents to [facility] ER complaining of low blood pressure, chest pressure and lightheadedness. Mr. Wolfe reports he woke up feeling fine and was able to eat but then took his medications and about half an hour later started to feel poorly. He states he felt numb and tingly from his head down to his feet and then developed mild chest pressure which he states is typical for him. He also admits to feeling that his throat is tight and his tongue seems to be slightly enlarged along with perioral paresthesias; with persistent tingling sensations when he touches his lips and mouth similar to his previous angioedema - but much less severe. His then checked his blood pressure and noted that it was in the low 100s systolic which is abnormal for him as he is usually in the 160 to 170 mmHg range. He further explained that at his previous hospital they increased his carvedilol as well as starting him on losartan. He denies any blood in his stool, black tarry stools, wheezing or stridor. He denies associated fever, chills, diarrhea or constipation. In the ER he was noted to have laboratory evidence of CHERY with a serum creatinine of 3.04 mg/dL with a BUN of 55 mg/dL present on admission (up from his baseline serum creatinine of 2.25 mg/dL and BUN of 37 mg/dL approximately 3 weeks ago) complicated by symptomatic hypotension suspected to be due to adverse drug reaction to recently started Losartan and he was then admitted to the general medical floor with telemetry monitoring for stay that is expected to be greater than 48 hours. [facility] Medical History Abdominal aortic aneurysm (AAA) Aneurysm of infrarenal abdominal aorta Angioedema due to angiotensin converting enzyme inhibitor (LASHONDA-I) Anxiety Anxiety and depression Arthritis Atrial fibrillation Back pain Benign paroxysmal positional vertigo Bradycardia Cancer Chronic abdominal pain Chronic cough Chronic HFrEF (heart failure with reduced ejection fraction) CKD (chronic kidney disease) COPD (chronic obstructive pulmonary disease) Depression Essential hypertension GERD (gastroesophageal reflux disease) Hiatal hernia High cholesterol History of ulceration Hypertension Injury of head and neck Kidney disease Left ventricular apical thrombus Loss of hearing Myocardial infarct, old Non-ischemic cardiomyopathy Overweight (BMI 25.0-29.9) Pacemaker Pulmonary fibrosis Shortness of breath on exertion Smoker Stage 2 moderate COPD by GOLD classification Stroke/cerebrovascular accident Symptomatic bradycardia Testicular cancer TIA (transient ischemic attack) Tobacco abuse Vision loss of left eye Wears dentures Wears glasses Home Medications gabapentin 400 mg capsule 400 mg PO BID pain 04/23/19 [History Last Taken 09/28/22] atorvastatin 10 mg tablet 10 mg PO DAILY cholesterol 04/27/19 [History Last Taken 09/04/23] mirtazapine 15 mg tablet 15 mg PO QHS Depression 12/03/19 [History Last Taken 09/04/23] furosemide 40 mg tablet 40 mg PO BID Water Pill 10/29/22 [History Last Taken 09/05/23] isosorbide mononitrate 30 mg tablet,extended release 24 hr 30 mg PO DAILY SOB 12/24/22 [History Last Taken 09/05/23] potassium chloride 20 mEq tablet,extended release(part/cryst) 20 meq PO BID Supplimentation #180 tabs 01/31/23 [Rx Last Taken Unknown] buspirone 5 mg tablet 5 mg PO BID mood 05/11/23 [History Last Taken Unknown] aspirin 81 mg chewable tablet 81 mg PO BREAKFAST #0 tabs 05/12/23 [Rx Last Taken 09/05/23] Oxygen 2 LPM on extertion #1 ea 06/29/23 [Rx Last Taken Unknown] carvedilol 25 mg tablet 25 mg PO BID 30 days #60 tabs 09/07/23 [Rx Last Taken Unknown] fluticasone fur. 200 mcg-umeclid 62.5 mcg-vilant 25 mcg inhalat.powder (Trelegy Ellipta) 1 inh inhalation DAILY #3 ea 10/04/23 [Rx Last Taken Unknown] amlodipine 10 mg tablet 10 mg PO DAILY #30 tabs 10/06/23 [Rx Last Taken Unknown] nitroglycerin 0.4 mg sublingual tablet 0.4 mg sublingual Q5-15M PRN CHEST PAIN #25 tabs 10/06/23 [Rx Last Taken Unknown] hydralazine 100 mg tablet 100 mg PO TID this is a dose increase #270 tabs 10/12/23 [Rx Last Taken Unknown] omeprazole 40 mg capsule,delayed release 40 mg PO DAILY 10/29/23 [History Last Taken Unknown] Allergy/AdvReac Type Severity Reaction Status Date / Time LASHONDA Inhibitors Allergy Severe Angioedema Verified 10/29/23 14:49 lisinopril Allergy Severe Angioedema Verified 10/29/23 14:49 ARB-Angiotensin Receptor Allergy Angioedema Verified 10/29/23 20:54 Antagonist Family History Father Cancer bone AAA (abdominal aortic aneurysm) Grandfather AAA (abdominal aortic aneurysm) Uncle AAA (abdominal aortic aneurysm) Surgical History H/O umbilical hernia repair History of AAA (abdominal aortic aneurysm) repair History of arthroscopic knee surgery History of corneal transplant History of foot surgery History of implantable cardiac defibrillator (ICD) History of knee surgery History of left heart catheterization (02/08/20) History of orchiectomy History of surgery on left wrist History of tonsillectomy Implantable cardioverter-defibrillator (ICD) in situ (08/21/20) Trigeminal neuralgia Social History household members: spouse Smoking Status: Former smoker Tobacco: How many years used: 50 how long ago did patient quit smoking: Quit 08/11/23. alcohol intake: never substance use type: does not use caffeine: Yes Type: coffee Number of servings: 5 ROS ROS Narrative Review of systems: General: Patient admits to lethargy but denies fevers, chills, sweats or weight loss. HENT: Denies headache, denies stuffy nose, denies sore throat EYES: Denies changes in vision or discharge from eyes. Resp: Denies cough, denies shortness of breath Cardiac: Patient admits to chest pressure that coincides with hypotension but denies orthopnea or heart racing. GI: Denies abdominal pain, denies changes in bowel, he also denies nausea or vomiting. : Denies changes in urination Extremity: Denies swelling Musculoskeletal: Feels somewhat generally weak and unwell but denies arthralgias or myalgias. Neuro: He admits to paresthesias that coincide with his hypotension but denies headache or focal neurologic weakness. Heme: Denies any bleeding or bruising Skin: Denies rashes Psychiatric: No complaints voiced about uncontrolled depression or anxiety. Endocrine: No polyuria, polydipsia or polyphagia. Allergic: Patient denies lip swelling, tongue swelling or urticaria. The rest of the 14 point ROS was negative except for positives in HPI. Vital Signs Vital Signs Vital Signs: 10/29/23 14:49 10/29/23 15:50 10/29/23 15:50 Temperature 96.7 F L Temperature Source Temporal Pulse Rate 54 L 55 L Pulse Rate [Standing (for 1 minute prior to obtaining)] Respiratory Rate 18 18 Respiratory Pattern Normal Blood Pressure 107/52 L 107/46 L Blood Pressure [Lying] Blood Pressure [Sitting (for 1 minute prior to obtaining)] Blood Pressure [Standing (for 1 minute prior to obtaining)] Blood Pressure Mean 70 66 Blood Pressure Mean [Lying] Blood Pressure Mean [Sitting (for 1 minute prior to obtaining)] Blood Pressure Mean [Standing (for 1 minute prior to obtaining)] Pulse Ox 94 95 Oxygen Delivery Method Room Air Room Air 10/29/23 17:00 10/29/23 17:16 10/29/23 18:10 Temperature Temperature Source Pulse Rate 53 L Pulse Rate [Standing (for 1 minute prior to obtaining)] 60 Respiratory Rate 16 Respiratory Pattern Blood Pressure 114/53 L 119/51 L Blood Pressure [Lying] 105/47 L Blood Pressure [Sitting (for 1 minute prior to obtaining)] 115/53 L Blood Pressure [Standing (for 1 minute prior to obtaining)] 122/55 H Blood Pressure Mean 73 73 Blood Pressure Mean [Lying] 66 Blood Pressure Mean [Sitting (for 1 minute prior to obtaining)] 73 Blood Pressure Mean [Standing (for 1 minute prior to obtaining)] 77 Pulse Ox 96 Oxygen Delivery Method Weight Weight: 195 lb 11.2 oz Body Mass Index (BMI) 31.6 Physical Exam Const alert, oriented x3, no apparent distress and average body habitus General Appearance: cooperative HEENT normocephalic, head/scalp atraumatic and hearing grossly normal bilaterally Eyes PERRL and EOMs intact bilaterally Neck no lymphadenopathy and supple Resp normal respiratory effort, no retractions, no use of accessory muscles and clear to auscultation bilaterally Cardio regular rate and regular rhythm GI normal to inspection, nondistended, normoactive bowel sounds, soft to palpation, non-tender and non-distended Extremity normal to inspection, full ROM and no clubbing, cyanosis or edema Skin Skin Narrative: Patient has no evidence of rash or significant wounds at this time. Neuro oriented x3, CN's II-XII intact bilaterally, moves all extremities and no focal motor deficits Sensorium / Orientation: awake, alert, oriented to person, oriented to place and oriented to time Speech: speech normal Motor Exam: strength 5/5 throughout Psych affect normal Results Medical Records Data Attestation: I reviewed the patient's medical records Lab / Micro Data Attestation: I reviewed the patient's lab results. 10/29/23 15:54 10/29/23 15:54 Labs: Laboratory Results - last 24 hr 10/29/23 15:54: WBC 9.4, RBC 3.05 L, Hgb 9.7 L, Hct 30.4 L, MCV 99.7 H, MCH 31.8, MCHC 31.9 L, RDW Std Deviation 59.5 H, RDW Coeff of Karen 16.2 H, Plt Count 193, MPV 10.5, Immature Gran % (Auto) 1.800 H, Neut % (Auto) 65.0, Lymph % (Auto) 18.6 L, [place] % (Auto) 10.0, Eos % (Auto) 4.1, Baso % (Auto) 0.5, Absolute Neuts (auto) 6.1, Absolute Lymphs (auto) 1.76, Nucleated RBC % 0, Sodium 139, Potassium 4.1, Chloride 101, Carbon Dioxide 32.0, Anion Gap 6, BUN 55 H, Creatinine 3.04 H, Estim Creat Clear Calc 20.11, Est GFR (MDRD) Af Amer 26 L, Est GFR (MDRD) Non-Af 22 L, BUN/Creatinine Ratio 18.1, Glucose 113 H, Lactic Acid 1.2, Calcium 8.2 L, Total Bilirubin 0.30, AST 12 L, ALT 15 L, Alkaline Phosphatase 70, Total Protein 6.5, Albumin 3.2, Globulin 3.3, Albumin/Globulin Ratio 1.0, Lipase 33 10/29/23 18:15: Urine Color Yellow, Urine Clarity Clear, Urine pH 6.5, Ur Specific [place] 1.010, Urine Protein Negative, Urine Glucose (UA) Normal, Urine Ketones Negative, Urine Occult Blood Negative, Urine Nitrite Negative, Urine Bilirubin Negative, Urine Urobilinogen Normal, Ur Leukocyte Esterase Negative, Urine RBC 0 SEEN, Urine WBC 0 SEEN, Ur Squamous Epith Cells 0 SEEN, Urine Bacteria 0 SEEN, Urine Mucus 0 SEEN Imagaing Radiology Impression Chest X-Ray 10/29/23 15:52 IMPRESSION: Mild left pleural effusion. Possible mild basilar atelectasis/ infiltrates. Mild cardiomegaly. Slight central pulmonary vascular prominence. Electronically Signed: Adrian Giles DO at 16:23 EST Reading Location ID and State: [address] [place] [address] Tel [phone], Service support , Assessment & Plan Assessment/Plan (1) CHERY (acute kidney injury): (2) Dizziness: (3) Adverse drug reaction: QUALIFIERS: Encounter type: initial encounter Qualified Code(s): T50.905A - Adverse effect of unspecified drugs, medicaments and biological substances, initial encounter PLAN: Plan 1. Acute kidney injury; in the setting of stage IV chronic kidney disease with a serum creatinine of 3.04 mg/dL with a BUN of 55 mg/dL present on admission (up from his baseline serum creatinine of 2.25 mg/dL and BUN of 37 mg/dL approximately 3 weeks ago) - Admit to general medical floor telemetric monitoring. Volume resuscitate and recheck BMP in the a.m. to ensure improvement. We will discontinue losartan and avoid all other potential nephrotoxic agents at this time. Finally, the pharmacist oracle financial application developer was asked to add losartan/angiotensin receptor blockers to his listed allergy to prevent potential recurrences in the future. 2. Symptomatic hypotension with dizziness, chest pressure and paresthesias complicating #1 - Treat supportively as outlined above and monitor for improvement. 3. Adverse drug reaction to Losartan precipitating #1 & #2 in the setting of a known pre-existing allergy to LASHONDA inhibitors which caused him angioedema - Stop Losartan and add to list of allergies with patient already having listed allergy to LASHONDA inhibitors. Give Solu-Medrol 125 mg IV once along with Benadryl 25 mg IV once now and then every 6 hours as needed. Both the patient and nurse were informed to let me know of any worsening of his tongue swelling or any development of stridor/SOB. 4. Recent admission to another local hospital approximately 8 days ago where he was diagnosed with pneumonia along with a hemoglobin of ~8 g/dL with scheduled colonoscopy 3 days from - Noted. 5. Essential hypertension - Hold scheduled antihypertensives in light of #1 and #2. Give IV hydralazine as needed for systolic blood pressure greater than 180 mmHg. 6. Hyperlipidemia - Continue statin. 7. Obesity with a BMI of 31.6 this admission - Weight loss will be recommended. Check TSH. 8. Extensive history of tobacco abuse; with subsequent COPD in the setting of known pulmonary fibrosis - Stable with no evidence of flare at this time. Continue as needed nebulizers as previous. 9. Chronic hypoxic respiratory failure; on 2 L nasal cannula continuously - Maintain supplemental oxygen at current levels. 10. Coronary artery disease; status post NM with left heart catheterization (2019) - Stable. 11. History of chronic systolic CHF; with reduced left ventricular ejection fraction with a known history of nonischemic cardiomyopathy - Noted. 12. History of left ventricular apical thrombus - Noted. 13. History of arrhythmia; status post PPM/AICD (2019) - Noted. 14. History of testicular cancer; status post Left orchiectomy with subsequent radiation - Noted. 15. History of CVA - Noted. 16. History of trigeminal neuralgia; status post nerve ablation - Stable. 17. History of infrarenal abdominal aortic aneurysm; status postrepair - Noted. 18. BPPV - Give Antivert as needed. 19. GERD - Stable. 20. Depression with anxiety - Resume home medications as previous. 21. Osteoarthritis; with chronic back pain - Stable. Give Tylenol as needed for pain. 22. DVT prophylaxis - Give Heparin 5,000 units sq TID plus SCD's. Total time: Approximately 55 minutes. Charges/Coding Visit Charges Inpatient E&M: 68004 Init Hosp L2
[2023-10-29 21:28] LABS: PSA,Total - Annual Screen 0.68 ng/mL (0.00-4.00)
[2023-10-29] MEDS: DiphenhydrAMINE 50 MG/ML Syringe 25 MG IV (23:22)
[2023-10-29] MEDS: Ipratropium/Albuterol Sulfate 3 ML AMPUL.NEB INHALATION (23:43)
[2023-10-29] MEDS: MethylPREDNISolone 125 MG/2 ML Vial IV (23:48)
[2023-10-29] MEDS: Heparin Injection (Vial) 5,000 UNIT/ML VIAL 5000 UNIT SC (23:50)
[2023-10-29] MEDS: busPIRone 5 MG Tablet PO (23:50)
[2023-10-29] MEDS: Atorvastatin Calcium 10 MG Tablet PO (23:50)
[2023-10-29] MEDS: Mirtazapine 15 MG Tablet PO (23:50)
[2023-10-29] MEDS: Gabapentin 400 MG Capsule PO (23:55)
[2023-10-30] MEDS: Acetaminophen 325 MG Tablet 650 MG PO (01:23)
[2023-10-30 03:32] VITALS: BP 148/63; PULSE 59; RESP 16; TEMP 36.6; O2SAT 98
[2023-10-30] MEDS: 0.9% Normal Saline (1000mL) 1,000 ML 150 ML IV (05:13)
[2023-10-30 05:53] VITALS: BMI 31.3
[2023-10-30 06:56] VITALS: PULSE 89; RESP 18; O2SAT 93
[2023-10-30] MEDS: Budesonide Respules 0.5 MG/2 ML AMPUL.NEB. INHALATION (06:56)
[2023-10-30] MEDS: Ipratropium/Albuterol Sulfate 3 ML AMPUL.NEB INHALATION (06:56)
--- NOTE | 2023-10-30 07:15 | PN.HOSP_ITS ---
Reason for Visit Reason for Visit: Diagnoses Acute kidney failure, unspecified (10/29/23) Dizziness and giddiness (10/29/23) Adverse effect of unspecified drugs, medicaments and biological substances, initial encounter (10/29/23) Subjective Subjective Patient is a 73-year-old gentleman admitted with low blood pressure and lightheadedness. Was also found to be in acute on chronic kidney disease admitted to regular nursing floor for further management Objective Data Objective Data Vital Signs: Vital Signs Temp Pulse Resp BP Pulse Ox O2 Del Method O2 Flow Rate 97.8 F 59 L 16 148/63 H 98 Nasal Cannula 2 10/30/23 03:32 10/30/23 03:32 10/30/23 03:32 10/30/23 03:32 10/30/23 03:32 10/30/23 03:32 10/30/23 03:32 Oxygen Flow Rate (L/min) 2 Oxygen Delivery Method Nasal Cannula Weight: 88.4 kg Body Mass Index (BMI) 31.3 Intake & Output: Intake and Output for Last 24 Hours 10/28/23 10/29/23 10/30/23 23:59 23:59 23:59 Intake Total 765 / 1065 1300 / 1300 Balance 765 / 1065 1300 / 1300 Lab / Micro Data 10/30/23 07:00 10/30/23 07:00 Labs: Laboratory Results - last 24 hr 10/29/23 15:54: WBC 9.4, RBC 3.05 L, Hgb 9.7 L, Hct 30.4 L, MCV 99.7 H, MCH 3 1.8, MCHC 31.9 L, RDW Std Deviation 59.5 H, RDW Coeff of Karen 16.2 H, Plt Count 193, MPV 10.5, Immature Gran % (Auto) 1.800 H, Neut % (Auto) 65.0, Lymph % (Auto) 18.6 L, [place] % (Auto) 10.0, Eos % (Auto) 4.1, Baso % (Auto) 0.5, Absolute Neuts (auto) 6.1, Absolute Lymphs (auto) 1.76, Nucleated RBC % 0, Sodium 139, Potassium 4.1, Chloride 101, Carbon Dioxide 32.0, Anion Gap 6, BUN 55 H, Creatinine 3.04 H, Estim Creat Clear Calc 20.11, Est GFR (MDRD) Af Amer 26 L, Est GFR (MDRD) Non-Af 22 L, BUN/Creatinine Ratio 18.1, Glucose 113 H, Lactic Acid 1.2, Calcium 8.2 L, Total Bilirubin 0.30, AST 12 L, ALT 15 L, Alkaline Phosphatase 70, Total Protein 6.5, Albumin 3.2, Globulin 3.3, Albumin/Globulin Ratio 1.0, Lipase 33, PSA Screen 0.68 10/29/23 18:15: Urine Color Yellow, Urine Clarity Clear, Urine pH 6.5, Ur Specific [place] 1.010, Urine Protein Negative, Urine Glucose (UA) Normal, Urine Ketones Negative, Urine Occult Blood Negative, Urine Nitrite Negative, Urine Bilirubin Negative, Urine Urobilinogen Normal, Ur Leukocyte Esterase Negative, Urine RBC 0 SEEN, Urine WBC 0 SEEN, Ur Squamous Epith Cells 0 SEEN, Urine Bacteria 0 SEEN, Urine Mucus 0 SEEN Radiography Diagnostic Testing: Radiology Impression Chest X-Ray 10/29/23 15:52 IMPRESSION: Mild left pleural effusion. Possible mild basilar atelectasis/ infiltrates. Mild cardiomegaly. Slight central pulmonary vascular prominence. Electronically Signed: Adrian Giles DO at 16:23 EST Reading Location ID and State: [facility] / [place] Tel [phone], Service support , Physical Exam Narrative GENERAL: cooperative HEENT: Atraumatic; normocephalic EYES; Anicteric, Normal Conjunctiva NECK; supple, normal thyroid, RESPIRATORY: Diminished to auscultation CARDIOVASCULAR: Regular S1 S2, GI: soft, normoactive bowel sounds, : No Renal angle tenderness; EXTREMITIES: No edema, no clubbing, MUSCULOSKELETAL: no muscle wasting NEURO: Awake; no lateralizing signs. SKIN: No Rash PSYCH; Flat affect Assessment & Plan Assessment/Plan (1) CHERY (acute kidney injury): (2) Dizziness: (3) Adverse drug reaction: QUALIFIERS: Encounter type: initial encounter Qualified Code(s): T50.905A - Adverse effect of unspecified drugs, medicaments and biological substances, initial encounter PLAN: Plan Patient is a 73-year-old gentleman admitted with low blood pressure and lightheadedness. Was also found to be in acute on chronic kidney disease admitted to regular nursing floor for further management 1. Acute kidney disease ? Superimposed on chronic kidney disease stage IV. Baseline creatinine 2.25, creatinine on admission was 3.04. Admitted to a monitored bed resuscitated with IV fluids. Potential nephrotoxic medications discontinued 2. Symptomatic hypotension ? Attributed to patient blood pressure medications. Patient was on losartan discontinued 3. Anemia with recent guaiac positive stool ? Patient scheduled to undergo colonoscopy on 11/02/2023 at [facility] 4. Essential hypertension ? Patient presented with low blood pressure patient BP medication subsequently adjusted 5. Class I obesity with BMI of 31.5 ? Weight loss advised 6. Dyslipidemia -Patient is on statin therapy, continued at home dose 7. Chronic hypoxic respiratory failure ? Secondary to pulmonary fibrosis as well as COPD patient is on baseline home oxygen ? Remains stable 8. Chronic congestive heart failure with with preserved ejection fraction ? Echo from 1 07/11/2023 demonstrated EF of 50% 9. Conduction system disorder ? Status post PPM/AICD placement 10.. History of left ventricular apical thrombus ? Stable 11. History of testicular cancer -status post Left orchiectomy with subsequent radiation 12. History of previous CVA ? With no residual effect currently remains stable 13. History of trigeminal neuralgia ? Status post ablation 14. History of infrarenal AAA ? Status post repair 15. BPPV ? Symptomatic treatment as needed 16. GERD ? On PPI 17. DVT prophylaxis ? SC heparin Charges/Coding Visit Charges Inpatient E&M: 42794 Subs Hosp L2
[2023-10-30 07:36] LABS: Absolute Lymphocyte Count 0.56 X10^3/uL (0.83-4.51); Absolute Neutrophil Count 6.2 X10^3/uL (2.0-7.7); Basophil# 0.01 X10^3/uL; Basophil% 0.1 % (0-1); Eosinophil# 0.01 X10^3/uL; Eosinophils% 0.1 % (0-5); Hematocrit 29.5 % (40-54); Hemoglobin 9.4 g/dL (13.0-16.5); Lymphocyte # 0.56 X10^3/ul (0.83-4.51); Lymphocyte % 8.1 % (19-41); Mean Corp Hgb Conc 31.9 g/dL (32-36); Mean Corpuscular Volume 100.3 fL (80-94); Mean Platelet Vol. 10.8 fl (6.2-12.0); Monocyte# 0.06 X10^3/uL; Monocyte% 0.9 % (0-10); NRBC Flagged by Analyzer 0 % (0-5); Neutrophil # 6.16 X10^3/uL (2.7-7.7); Neutrophil % 89.4 % (47-70); POSITIVE DIFFERENTIAL YES; Platelet Count 166 K/mm3 (150-450); RBC Distribution Width CV 16.2 % (11.6-14.6); RBC Distribution Width SD 60.5 fl (35.1-43.9); Red Blood Count 2.94 M/mm3 (4.6-6.2); White Blood Count 6.9 K/mm3 (4.4-11.0)
[2023-10-30 07:48] LABS: Differential Indicated SCAN CRITERIA MET
[2023-10-30 07:55] LABS: ALB/GLOB Ratio 0.8 RATIO (0.9-2.4); AST(SGOT) 9 U/L (15-37); Alanine Aminotransfer ALT/SGPT 13 U/L (16-61); Albumin, Serum 2.8 g/dL (3.2-5.0); Alkaline Phosphatase 73 U/L (45-117); Anion Gap 6 (5-15); BUN 45 mg/dL (7-18); BUN/Creat Ratio 16.3 RATIO (10-20); Calcium,Total 8.3 mg/dL (8.5-10.1); Chloride 104 mmol/L (98-107); Creatinine, Serum 2.76 mg/dL (0.70-1.30); EST Glomerular Filtration Rate 24 mL/min (>60); Est Glom Filt Rate - Afr Amer 29 mL/min (>60); Estimated Creatinine Clearance 22.15 ml/min; Globulin 3.5 g/dL (2.2-4.2); Glucose 276 mg/dL (74-106); Magnesium 2.4 mg/dL (1.6-2.6); Phosphorus 2.7 mg/dL (2.5-4.9); Potassium 4.3 mmol/L (3.5-5.1); Protein, Total 6.3 g/dL (6.4-8.2); Sodium Level 136 mmol/L (136-145); Thyroid Stim Hormone (TSH) 1.04 uIU/mL (0.358-3.74)
[2023-10-30 08:47] VITALS: BP 158/64; PULSE 66; RESP 16; TEMP 36.8; O2SAT 98
[2023-10-30] MEDS: Aspirin 81 MG TAB.CHEW PO (09:10)
[2023-10-30] MEDS: Potassium Chloride Oral Tablet 20 MEQ PO (09:10)
[2023-10-30] MEDS: busPIRone 5 MG Tablet PO (09:11)
[2023-10-30] MEDS: Gabapentin 400 MG Capsule PO (09:12)
[2023-10-30 09:37] LABS: Differential Comment SCANNED
--- NOTE | 2023-10-30 10:14 | DS.PCM_ITS ---
Providers Date of Admission: 10/29/23 Date of Discharge: 10/30/23 Primary Care Physician: MELANIE Pulido Reason For Visit: ACUTE KIDNEY INJURY IN THE SETTING OF STAGE Diagnosis Discharge Diagnosis (1) CHERY (acute kidney injury): Status: Acute Code(s): N17.9 - Acute kidney failure, unspecified (2) Dizziness: Status: Acute Code(s): R42 - Dizziness and giddiness (3) Adverse drug reaction: Status: Acute Code(s): T50.905A - Adverse effect of unspecified drugs, medicaments and biological substances, initial encounter Qualifiers: Encounter type: initial encounter Qualified Code(s): T50.905A - Adverse effect of unspecified drugs, medicaments and biological substances, initial encounter Plan Patient is a 73-year-old gentleman admitted with low blood pressure and lightheadedness. Was also found to be in acute on chronic kidney disease admitted to regular nursing floor for further management 1. Acute kidney disease ? Superimposed on chronic kidney disease stage IV. Baseline creatinine 2.25, creatinine on admission was 3.04. Admitted to a monitored bed resuscitated with IV fluids. Potential nephrotoxic medications discontinued 2. Symptomatic hypotension ? Attributed to patient blood pressure medications. Patient was on losartan discontinued 3. Anemia with recent guaiac positive stool ? Patient scheduled to undergo colonoscopy on 11/02/2023 at [facility] 4. Essential hypertension ? Patient presented with low blood pressure patient BP medication subsequently adjusted 5. Class I obesity with BMI of 31.5 ? Weight loss advised 6. Dyslipidemia -Patient is on statin therapy, continued at home dose 7. Chronic hypoxic respiratory failure ? Secondary to pulmonary fibrosis as well as COPD patient is on baseline home oxygen ? Remains stable 8. Chronic congestive heart failure with with preserved ejection fraction ? Echo from 07/11/2023 demonstrated EF of 50% 9. Conduction system disorder ? Status post PPM/AICD placement 10.. History of left ventricular apical thrombus ? Stable 11. History of testicular cancer -status post Left orchiectomy with subsequent radiation 12. History of previous CVA ? With no residual effect currently remains stable 13. History of trigeminal neuralgia ? Status post ablation 14. History of infrarenal AAA ? Status post repair 15. BPPV ? Symptomatic treatment as needed 16. GERD ? On PPI 17. DVT prophylaxis ? SC heparin Medications at Discharge Home Medications gabapentin 400 mg capsule 400 mg PO BID pain 04/23/19 atorvastatin 10 mg tablet 10 mg PO DAILY cholesterol 04/27/19 mirtazapine 15 mg tablet 15 mg PO QHS Depression 12/03/19 isosorbide mononitrate 30 mg tablet,extended release 24 hr 30 mg PO DAILY SOB 12/24/22 buspirone 5 mg tablet 5 mg PO BID mood 05/11/23 aspirin 81 mg chewable tablet 81 mg PO BREAKFAST #0 tabs 05/12/23 Oxygen 2 LPM on extertion #1 ea 06/29/23 carvedilol 25 mg tablet 25 mg PO BID 30 days #60 tabs 09/07/23 fluticasone fur. 200 mcg-umeclid 62.5 mcg-vilant 25 mcg inhalat.powder (Trelegy Ellipta) 1 inh inhalation DAILY #3 ea 10/04/23 amlodipine 10 mg tablet 10 mg PO DAILY #30 tabs 10/06/23 nitroglycerin 0.4 mg sublingual tablet 0.4 mg sublingual Q5-15M PRN CHEST PAIN #25 tabs 10/06/23 omeprazole 40 mg capsule,delayed release 40 mg PO DAILY 10/29/23 Hospital Course Summary of Care Provided Minutes Spent on Discharge: 35 Physical Exam Narrative GENERAL: cooperative HEENT: Atraumatic; normocephalic EYES; Anicteric, Normal Conjunctiva NECK; supple, normal thyroid, RESPIRATORY: Diminished to auscultation CARDIOVASCULAR: Regular S1 S2, GI: soft, normoactive bowel sounds, : No Renal angle tenderness; EXTREMITIES: No edema, no clubbing, MUSCULOSKELETAL: no muscle wasting NEURO: Awake; no lateralizing signs. SKIN: No Rash PSYCH; Flat affect Weight / BMI Weight Weight: 88.4 kg Body Mass Index (BMI) 31.3 ABG / Lab / Microbiology Data 10/30/23 07:00 10/30/23 07:00 Laboratory: Laboratory Results - last 24 hr 10/29/23 15:54: WBC 9.4, RBC 3.05 L, Hgb 9.7 L, Hct 30.4 L, MCV 99.7 H, MCH 31.8, MCHC 31.9 L, RDW Std Deviation 59.5 H, RDW Coeff of Karen 16.2 H, Plt Count 193, MPV 10.5, Immature Gran % (Auto) 1.800 H, Neut % (Auto) 65.0, Lymph % (Auto) 18.6 L, Scurry % (Auto) 10.0, Eos % (Auto) 4.1, Baso % (Auto) 0.5, Absolute Neuts (auto) 6.1, Absolute Lymphs (auto) 1.76, Nucleated RBC % 0, Sodium 139, Potassium 4.1, Chloride 101, Carbon Dioxide 32.0, Anion Gap 6, BUN 55 H, Creatinine 3.04 H, Estim Creat Clear Calc 20.11, Est GFR (MDRD) Af Amer 26 L, Est GFR (MDRD) Non-Af 22 L, BUN/Creatinine Ratio 18.1, Glucose 113 H, Lactic Acid 1.2, Calcium 8.2 L, Total Bilirubin 0.30, AST 12 L, ALT 15 L, Alkaline Phosphatase 70, Total Protein 6.5, Albumin 3.2, Globulin 3.3, Albumin/Globulin Ratio 1.0, Lipase 33, PSA Screen 0.68 10/29/23 18:15: Urine Color Yellow, Urine Clarity Clear, Urine pH 6.5, Ur Specific [place] 1.010, Urine Protein Negative, Urine Glucose (UA) Normal, Urine Ketones Negative, Urine Occult Blood Negative, Urine Nitrite Negative, Urine Bilirubin Negative, Urine Urobilinogen Normal, Ur Leukocyte Esterase Negative, Urine RBC 0 SEEN, Urine WBC 0 SEEN, Ur Squamous Epith Cells 0 SEEN, Urine Bacteria 0 SEEN, Urine Mucus 0 SEEN 10/30/23 07:00: WBC 6.9, RBC 2.94 L, Hgb 9.4 L, Hct 29.5 L, MCV 100.3 H, MCH 32.0, MCHC 31.9 L, RDW Std Deviation 60.5 H, RDW Coeff of Karen 16.2 H, Plt Count 166, MPV 10.8, Immature Gran % (Auto) 1.400 H, Neut % (Auto) 89.4 H, Lymph % (Auto) 8.1 L, Scurry % (Auto) 0.9, Eos % (Auto) 0.1, Baso % (Auto) 0.1, Absolute Neuts (auto) 6.2, Absolute Lymphs (auto) 0.56 L, Nucleated RBC % 0, Differential Comment SCANNED, Sodium 136, Potassium 4.3, Chloride 104, Carbon Dioxide 26.0, Anion Gap 6, BUN 45 H, Creatinine 2.76 H, Estim Creat Clear Calc 22.15, Est GFR (MDRD) Af Amer 29 L, Est GFR (MDRD) Non-Af 24 L, BUN/Creatinine Ratio 16.3, Glucose 276 H, Calcium 8.3 L, Phosphorus 2.7, Magnesium 2.4, Total Bilirubin 0. 30, AST 9 L, ALT 13 L, Alkaline Phosphatase 73, Total Protein 6.3 L, Albumin 2.8 L, Globulin 3.5, Albumin/Globulin Ratio 0.8 L, TSH 1.04 Radiography Diagnostic Testing: Radiology Impression Chest X-Ray 10/29/23 15:52 IMPRESSION: Mild left pleural effusion. Possible mild basilar atelectasis/ infiltrates. Mild cardiomegaly. Slight central pulmonary vascular prominence. Electronically Signed: Adrian Giles DO at 16:23 EST Reading Location ID and State: [address] [place] [address] Tel [phone], Service support , D/C Instructions Discharge Diet: No restrictions Discharge Activity: Return to Normal Activity Call your doctor if you observe: Fever of 101 or Higher, Shortness of breath, Fainting spells and Chest pain Meaningful Use Info Meaningful Use Diagnoses (Choose all that apply): None applicable Discharge Plan Admission Admit Date/Time: 10/29/23 20:41 Attending Provider: Spencer Franklin Primary Care Provider: Christopher Cortez Consulting Providers: Spencer Olson Discharge Orders/Prescriptions Prescriptions: Continued mirtazapine 15 mg tablet 15 mg PO QHS nitroglycerin 0.4 mg tablet, sublingual 0.4 mg SUBLINGUAL Q5-15M PRN (Reason: CHEST PAIN) Qty: 25 3RF amlodipine 10 mg tablet 10 mg PO DAILY Qty: 30 11RF gabapentin 400 mg capsule 400 mg PO BID Patient Comments: neuropathy atorvastatin 10 MG tablet 10 mg PO DAILY isosorbide mononitrate 30 mg tablet extended release 24 hr 30 mg PO DAILY omeprazole 40 mg capsule,delayed release(DR/EC) 40 mg PO DAILY buspirone 5 mg tablet 5 mg PO BID aspirin 81 mg Tablet,Chewable 81 mg PO BREAKFAST Qty: 0 0RF Hold Instructions: d/t bleed/anemia carvedilol 25 mg Tablet 25 mg PO BID 30 Days Qty: 60 0RF (DME) Oxygen 2 LPM on extertion See Rx Instructions .Route .MEDSUPPLY Qty: 1 0RF Patient Comments: 4l at hs Rx Instructions: As directed Trelegy Ellipta 200-62.5-25 mcg blister with device 1 inh inhalation DAILY Qty: 3 3RF Hold Instructions: cost Discontinued furosemide 40 mg tablet 40 mg PO BID Hold Instructions: Resume on 10/02/22. Rx Instructions: May take twice daily if needed. potassium chloride 20 mEq tablet,ER particles/crystals 20 meq PO BID Qty: 180 3RF hydralazine 100 mg tablet 100 mg PO TID Qty: 270 3RF Referrals / Follow Up: Christopher Cortez PA [Primary Care Provider] - In 1 Week Disposition Disposition (needs filled in before D/C Order can be placed): Home, Self Care Charges/Coding Visit Charges Inpatient E&M: 98708 Disch Hosp >30min
[2023-10-30 13:32] VITALS: BP 165/66; PULSE 80; RESP 18; TEMP 36.9; O2SAT 99
== END 2023-10-30 13:33 | disposition home or self-care (01) | DRG 683 ==
LOC: ED 20:03 → MS3 10-30 01:00
PROVIDERS: Admitting Provider Internal Medicine; Emergency Provider Emergency Medicine; Visit Provider Internal Medicine
DX: N17.9 Acute kidney failure, unspecified (principal); I13.0 Hypertensive heart and chronic kidney disease with heart failure and stage 1 through stage 4 chronic kidney disease, or unspecified chronic kidney disease; J96.11 Chronic respiratory failure with hypoxia; I50.32 Chronic diastolic (congestive) heart failure; N18.4 Chronic kidney disease, stage 4 (severe); J44.9 Chronic obstructive pulmonary disease, unspecified; E78.5 Hyperlipidemia, unspecified; F41.8 Other specified anxiety disorders; I25.10 Atherosclerotic heart disease of native coronary artery without angina pectoris; K21.9 Gastro-esophageal reflux disease without esophagitis; H81.10 Benign paroxysmal vertigo, unspecified ear; E66.9 Obesity, unspecified; Z79.51 Long term (current) use of inhaled steroids; T50.905A Adverse effect of unspecified drugs, medicaments and biological substances, initial encounter; Z87.891 Personal history of nicotine dependence; Z95.810 Presence of automatic (implantable) cardiac defibrillator; Z68.31 Body mass index [BMI] 31.0-31.9, adult; Z86.73 Personal history of transient ischemic attack (TIA), and cerebral infarction without residual deficits
CPT/HCPCS: 36415; 71045; 80053; 81001; 83605; 83690; 83735; 84100; 84153; 84443; 85025; 93005; 94640; 94668; 96361; 96372; 96374; 96375; 97162; 97165; 99221; 99285; J7030; G0103; G0378

== ENCOUNTER 2023-10-31 14:01 | Inpatient (IN) | payer MEDICARE, SELFPAY ==
[2023-10-31] VITALS (10 sets, daily range): BP systolic 149–182; BP diastolic 80–86; PULSE 61–80; RESP 15–22; TEMP 36.6; O2SAT 88–99; BMI 33.1; BMI 32.3
--- NOTE | 2023-10-31 14:14 | RAD_ITS ---
STUDY: X-RAY CHEST REASON FOR EXAM: Male, 73 years old. Dyspnea. TECHNIQUE: Single frontal view of the chest. COMPARISON: October 29, 2023 FINDINGS: Stable cardiomegaly, dual lead cardiac pacer, aortic tortuosity and calcification, prominent central pulmonary arteries and mild diffuse interstitial pattern. Thickening of the right horizontal lateral which may represent scarring or small effusion. No abnormality of the visualized soft tissue structures of the upper abdomen. RAD/Chest 1 View (Portable) IMPRESSION: Stable chest with no acute superimposed finding. Electronically Signed: Gordy Alexandra MD at 14:54 EST ,
--- NOTE | 2023-10-31 14:15 | EKG12_ITS ---
Test Reason : SOB Blood Pressure : / mmHG Vent. Rate : 067 BPM Atrial Rate : 067 BPM P-R Int : 172 ms QRS Dur : 112 ms QT Int : 448 ms P-R-T Axes : 096 007 053 degrees QTc Int : 473 ms Normal sinus rhythm ST & T wave abnormality, consider lateral ischemia Prolonged QT Abnormal ECG Confirmed by SINAI BRAXTON, GUILLERMO ([id number]), desk editor NANI ALFARO ([id number]) on 11/01/2023 10:08:48 AM Referred By: PEDRO/JOSEPH/GORDY Confirmed By:GUILLERMO RAWLS MD
--- NOTE | 2023-10-31 14:18 | EDS_ITS ---
HPI History of Present Illness Chief Complaint: Shortness of Breath Narrative Narrative: 73-year-old male with history of CHF, nonischemic cardiomyopathy, hypertension, pulmonary fibrosis, COPD presenting with dyspnea. He states that dyspnea started acutely at about 4 PM today. Patient relates he was recently in the hospital for similar symptoms. He states at that time he was told he is allergic to losartan and this was discontinued. He also was taken off of his carvedilol and his Lasix. He states he gained 6 pounds overnight last night. He states he called his primary care physician who told him to come directly to the hospital. He has not taken any Lasix prior to coming. Patient reports he has 1 kidney and he had acute kidney injury when he was recently admitted. Patient has retrosternal chest pain which she states has had for years and is unchanged. He is more short of breath. Denies fever, chills, myalgias. Patient wearing 4 L of oxygen which is his baseline after his previous visit. Patient denies leg swelling or edema. 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) Anxiety Anxiety and depression Arthritis Atrial fibrillation Back pain Benign paroxysmal positional vertigo Bradycardia Cancer Chronic abdominal pain Chronic cough Chronic HFrEF (heart failure with reduced ejection fraction) CKD (chronic kidney disease) COPD (chronic obstructive pulmonary disease) Depression Essential hypertension GERD (gastroesophageal reflux disease) Hiatal hernia High cholesterol History of ulceration Hypertension Injury of head and neck Kidney disease Left ventricular apical thrombus Loss of hearing Myocardial infarct, old Non-ischemic cardiomyopathy Overweight (BMI 25.0-29.9) Pacemaker Pulmonary fibrosis Shortness of breath on exertion Smoker Stage 2 moderate COPD by GOLD classification Stroke/cerebrovascular accident Symptomatic bradycardia Testicular cancer TIA (transient ischemic attack) Tobacco abuse Vision loss of left eye Wears dentures Wears glasses Home Medications gabapentin 400 mg capsule 400 mg PO BID NEUROPATHY 04/23/19 [History Last Taken 09/28/22] atorvastatin 10 mg tablet 10 mg PO DAILY CHOLESTEROL 04/27/19 [History Last Taken 09/04/23] mirtazapine 15 mg tablet 15 mg PO QHS DEPRESSION 12/03/19 [History Last Taken 10/31/23] isosorbide mononitrate 30 mg tablet,extended release 24 hr 30 mg PO DAILY SHORTNESS OF BREATH 12/24/22 [History Last Taken 10/31/23] buspirone 5 mg tablet 5 mg PO BID ANXIETY 05/11/23 [History Last Taken Unknown] aspirin 81 mg chewable tablet 81 mg PO BREAKFAST BLOOD THINNER #0 tabs 05/12/23 [Rx Last Taken 09/05/23] Oxygen 2 LPM on extertion #1 ea 06/29/23 [Rx Last Taken Unknown] carvedilol 25 mg tablet 25 mg PO BID BLOOD PRESSURE 30 days #60 tabs 09/07/23 [Rx Last Taken Unknown] fluticasone fur. 200 mcg-umeclid 62.5 mcg-vilant 25 mcg inhalat.powder (Trelegy Ellipta) 1 inh inhalation DAILY SHORTNESS OF BREATH/WHEEZING #3 ea 10/04/23 [Rx Last Taken Unknown] amlodipine 10 mg tablet 10 mg PO DAILY BLOOD PRESSURE #30 tabs 10/06/23 [Rx Last Taken Unknown] nitroglycerin 0.4 mg sublingual tablet 0.4 mg sublingual Q5-15M PRN CHEST PAIN #25 tabs 10/06/23 [Rx Last Taken Unknown] omeprazole 40 mg capsule,delayed release 40 mg PO DAILY ACID REFLUX 10/29/23 [History Last Taken 10/31/23] Allergy/AdvReac Type Severity Reaction Status Date / Time LASHONDA Inhibitors Allergy Severe Angioedema Verified 10/31/23 14:03 lisinopril Allergy Severe Angioedema Verified 10/31/23 14:03 ARB-Angiotensin Receptor Allergy Angioedema Verified 10/31/23 14:03 Antagonist Family History Father Cancer bone AAA (abdominal aortic aneurysm) Grandfather AAA (abdominal aortic aneurysm) Uncle AAA (abdominal aortic aneurysm) Surgical History H/O umbilical hernia repair History of AAA (abdominal aortic aneurysm) repair History of arthroscopic knee surgery History of corneal transplant History of foot surgery History of implantable cardiac defibrillator (ICD) History of knee surgery History of left heart catheterization (02/08/20) History of orchiectomy History of surgery on left wrist History of tonsillectomy Implantable cardioverter-defibrillator (ICD) in situ (08/21/20) Trigeminal neuralgia Social History household members: spouse Smoking Status: Former smoker Tobacco: How many years used: 50 how long ago did patient quit smoking: Quit 08/11/23. alcohol intake: never substance use type: does not use caffeine: Yes Type: coffee Number of servings: 5 ROS ROS ED Constitutional Constitutional ED: Denies chills or fever(s) Eyes Eyes: Denies change in vision or diplopia ENT ENT ED: Denies rhinorrhea or sore throat Cardiovascular Cardiovascular: Reports chest pain Respiratory/Chest Respiratory/Chest: Reports cough, dyspnea and dyspnea on exertion Gastrointestinal Gastrointestinal: Denies abdominal pain, nausea or vomiting Genitourinary Genitourinary ED: Denies dysuria or hematuria Musculoskeletal Musculoskeletal: Denies arthralgias or myalgias Integumentary Denies abscess or Abrasions Neurologic Neurologic: Denies headache(s) EXAM Physical Exam Const Vital Signs: 10/31/23 14:03 10/31/23 14:30 10/31/23 14:38 Temperature 97.8 F Temperature Source Temporal Pulse Rate 63 69 61 Respiratory Rate 22 H 22 H 18 Respiratory Effort Respiratory Depth Respiratory Pattern Tachypnea Blood Pressure 149/85 H Blood Pressure Mean 106 Pulse Ox 95 96 Oxygen Delivery Method Nasal Cannula Room Air Oxygen Flow Rate (L/min) 2 10/31/23 14:38 10/31/23 16:02 10/31/23 17:34 Temperature Temperature Source Pulse Rate 70 80 Respiratory Rate 19 H 15 Respiratory Effort Short of Breath Respiratory Depth Normal Respiratory Pattern Tachypnea Blood Pressure 159/86 H 175/85 H Blood Pressure Mean 110 115 Pulse Ox 89 99 Oxygen Delivery Method Nasal Cannula Nasal Cannula Oxygen Flow Rate (L/min) 2 2 Positive well nourished General Appearance ED: NAD; Negative for pallor HEENT Reports moist mucous membranes Eyes PERRL and EOMs intact bilaterally Neck no lymphadenopathy and supple Resp Resp Narrative: Tachypneic. Speaking in short sentences. No tripoding. Auscultation: rhonchi throughout and wheezes scattered wheezes Cardio regular rate and regular rhythm GI non-tender Extremity normal to inspection General Extremety ED: Negative for edema General Extremity: Negative for edema Neuro oriented x3 and CN's II-XII intact bilaterally Sensorium / Orientation: alert Psych Mood & Affect: anxious Skin no wounds General Skin Exam: Negative for jaundice or pallor MDM MDM MDM Narrative Medical decision making narrative: Patient presenting with dyspnea. He has multiple medical problems which would be causing this. Differential includes CHF, pneumonia, COVID, influenza, COPD, dehydration, anemia, electrolyte abnormalities, ACS, anxiety. CBC was obtained to assess white blood cell count, hemoglobin, platelets. CMP to assess liver function, electrolytes. High-sensitivity troponin EKG to assess for ischemia/dysrhythmia. Chest x-ray to rule out pneumonia or other pulmonary etiology. Patient was given Solu-Medrol and breathing treatments. His vitals are stable. He is slightly tachypneic. He is wheezing on examination. COVID, influenza, RSV were obtained. COVID, influenza, RSV negative. CBC shows white blood cell count 11.6. Hemoglobin stable at baseline 9.2. Platelets 173. LFTs unremarkable. Creatinine 2.08 and appears to have improved. Chest x-ray my interpretation shows no acute process. EKG shows normal sinus rhythm with ventricular rate of 67 bpm without sign of ischemic change. BNP is elevated today at 671.1. High-sensitivity troponin 39. Patient ambulated in the hallway and dropped O2 sats to 86% and did not do well. He felt very dyspneic. Given this we will talk to the hospitalist for admission. Impression: 1. COPD exacerbation 2. Hypoxia 3. CHF 4. Debility Lab Data Attestation: I reviewed the patient's lab results. Labs: Laboratory Results - last 24 hr 10/31/23 14:06 WBC 11.6 H RBC 2.95 L Hgb 9.2 L Hct 29.9 L MCV 101.4 H MCH 31.2 MCHC 30.8 L RDW Std Deviation 62.2 H RDW Coeff of Karen 16.7 H Plt Count 173 MPV 10.5 Immature Gran % (Auto) 1.500 H Neut % (Auto) 79.2 H Lymph % (Auto) 12.4 L [facility] % (Auto) 6.5 Eos % (Auto) 0.3 Baso % (Auto) 0.1 Absolute Neuts (auto) 9.2 H Absolute Lymphs (auto) 1.44 Nucleated RBC % 0 Sodium 141 Potassium 4.3 Chloride 108 H Carbon Dioxide 30.0 Anion Gap 3 L BUN 41 H Creatinine 2.08 H Estim Creat Clear Calc 29.40 Est GFR (MDRD) Af Amer 41 L Est GFR (MDRD) Non-Af 34 L BUN/Creatinine Ratio 19.7 Glucose 108 H Calcium 8.5 Total Bilirubin 0.50 AST 56 H ALT 68 H Alkaline Phosphatase 77 Troponin I High Sens 39 B-Natriuretic Peptide 671.1 H Total Protein 6.5 Albumin 3.2 Globulin 3.3 Albumin/Globulin Ratio 1.0 Radiography Diagnostic Testing: Clinical Impression(s) from Imaging Studies Chest X-Ray 10/31/23 14:14 IMPRESSION: Stable chest with no acute superimposed finding. Electronically Signed: Gordy Alexandra MD at 14:54 EST Reading Location ID and State: [facility] / [place] , Service support , Discharge Plan Triage Chief Complaint: Shortness of Breath ED Provider: Quinn Carson Dx/Rx/DC Orders Prescriptions: No Action mirtazapine 15 mg tablet 15 mg PO QHS nitroglycerin 0.4 mg tablet, sublingual 0.4 mg SUBLINGUAL Q5-15M PRN (Reason: CHEST PAIN) Qty: 25 3RF amlodipine 10 mg tablet 10 mg PO DAILY Qty: 30 11RF gabapentin 400 mg capsule 400 mg PO BID atorvastatin 10 MG tablet 10 mg PO DAILY isosorbide mononitrate 30 mg tablet extended release 24 hr 30 mg PO DAILY omeprazole 40 mg capsule,delayed release(DR/EC) 40 mg PO DAILY buspirone 5 mg tablet 5 mg PO BID aspirin 81 mg Tablet,Chewable 81 mg PO BREAKFAST Qty: 0 0RF Hold Instructions: d/t bleed/anemia carvedilol 25 mg Tablet 25 mg PO BID 30 Days Qty: 60 0RF (DME) Oxygen 2 LPM on extertion See Rx Instructions .Route .MEDSUPPLY Qty: 1 0RF Patient Comments: 4l at hs Rx Instructions: As directed Trelegy Ellipta 200-62.5-25 mcg blister with device 1 inh inhalation DAILY Qty: 3 3RF Hold Instructions: cost Primary Care Provider: Christopher Cortez Referrals: Christopher Cortez, PA [Primary Care Provider] -
[2023-10-31] MEDS: Albuterol 2.5 MG/3 ML VIAL.NEB. INHALATION (14:30)
[2023-10-31] MEDS: Ipratropium/Albuterol Sulfate 3 ML AMPUL.NEB INHALATION (14:30)
[2023-10-31] MEDS: MethylPREDNISolone 125 MG/2 ML Vial IV (14:30)
[2023-10-31 14:32] LABS: Absolute Lymphocyte Count 1.44 X10^3/uL (0.83-4.51); Absolute Neutrophil Count 9.2 X10^3/uL (2.0-7.7); Basophil# 0.01 X10^3/uL; Basophil% 0.1 % (0-1); Eosinophil# 0.04 X10^3/uL; Eosinophils% 0.3 % (0-5); Hematocrit 29.9 % (40-54); Hemoglobin 9.2 g/dL (13.0-16.5); Lymphocyte # 1.44 X10^3/ul (0.83-4.51); Lymphocyte % 12.4 % (19-41); Mean Corp Hgb Conc 30.8 g/dL (32-36); Mean Corpuscular Hgb 31.2 pg (27.0-32.0); Mean Corpuscular Volume 101.4 fL (80-94); Mean Platelet Vol. 10.5 fl (6.2-12.0); Monocyte# 0.75 X10^3/uL; Monocyte% 6.5 % (0-10); NRBC Flagged by Analyzer 0 % (0-5); Neutrophil # 9.21 X10^3/uL (2.7-7.7); Neutrophil % 79.2 % (47-70); Platelet Count 173 K/mm3 (150-450); RBC Distribution Width CV 16.7 % (11.6-14.6); RBC Distribution Width SD 62.2 fl (35.1-43.9); Red Blood Count 2.95 M/mm3 (4.6-6.2); White Blood Count 11.6 K/mm3 (4.4-11.0)
[2023-10-31 14:45] LABS: BNP,B-Type NATRIURETIC PEPTIDE 671.1 pg/mL (0-100)
[2023-10-31 14:51] LABS: AST(SGOT) 56 U/L (15-37); Alanine Aminotransfer ALT/SGPT 68 U/L (16-61); Albumin, Serum 3.2 g/dL (3.2-5.0); Alkaline Phosphatase 77 U/L (45-117); Anion Gap 3 (5-15); BUN 41 mg/dL (7-18); BUN/Creat Ratio 19.7 RATIO (10-20); Calcium,Total 8.5 mg/dL (8.5-10.1); Chloride 108 mmol/L (98-107); Creatinine, Serum 2.08 mg/dL (0.70-1.30); EST Glomerular Filtration Rate 34 mL/min (>60); Est Glom Filt Rate - Afr Amer 41 mL/min (>60); Globulin 3.3 g/dL (2.2-4.2); Glucose 108 mg/dL (74-106); Potassium 4.3 mmol/L (3.5-5.1); Protein, Total 6.5 g/dL (6.4-8.2); Sodium Level 141 mmol/L (136-145); Troponin-I HS 39 pg/mL (3.0-78.0)
[2023-10-31] MEDS: busPIRone 5 MG Tablet PO (16:11)
--- NOTE | 2023-10-31 17:45 | HP.PCM.HOS_ITS ---
HPI - General General Date of Admission: 10/31/23 Date of Service: 10/31/23 Chief Complaint: Dyspnea, wheezing. HPI Narrative The patient is a 73 y/o M w/ PMHx: PAF, HFrEF, CKD stage IV (baseline Cr 2.25), HTN, HLD, HFpEF, Conduction system disorder s/p pacemaker placement/AICD, Hx LV apical thrombus, Chronic anemia, Hx AAA infrarenal s/p repair, BPPV, GERD, Hx Trigeminal neuralgia, Hx testicular CA s/p L orchiectomy/radiation, Hx CVA with no residual deficits, Chronic Hypoxic Respiratory Failure secondary to underlying Pulmonary Fibrosis and COPD (2-4L NC baseline), recent admission 10/29/23-10/30/23 secondary to admission with acute kidney injury superimposed on CKD stage IV with low blood pressure and lightheadedness with symptomatic hypotension as well as anemia with reportedly a recent positive stool guaiac with planned outpatient colonoscopy 11/02/2023 in the [facility] who now re-presents to the [facility] ED on 10/31/23 with history of onset of significant dyspnea starting approximately 4 PM with increased weight gain of reportedly 6 pounds overnight prompting call to his PCP who directed him to the hospital for evaluation with stable chronic retrosternal chest pain that been ongoing for years however he does as noted have increased dyspnea sensation prompting ED evaluation. Workup in the ED included T97.8, heart rate 63, BP 149/85, respiratory rate 22, noted to be 95% on 2 L nasal cannula transiently desaturat ed to 89% on 2 L previously on 10/30/2023 noted to be 99% on room air-->86% on 2L NC, CBC with WBC 11.6, hemoglobin 9.2, MCV 101.4, platelet 173 with left shift, CMP with chloride 108, BUN/creatinine 41/2.08, glucose 108, AST/ALT 56/68, troponin 39, BNP 671.1, chest x-ray with stable cardiomegaly with pacemaker with prominent central pulmonary arteries and mild diffuse interstitial patterns similar in appearance to previous, SARS/influenza/RSV PCR is all negative. In the ED patient ministered Solu-Medrol 125 mg IV x 1, albuterol DuoNeb therapies as well as BuSpar 5 mg p.o. x 1. 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) Anxiety Anxiety and depression Arthritis Atrial fibrillation Back pain Benign paroxysmal positional vertigo Bradycardia Cancer Chronic abdominal pain Chronic cough Chronic HFrEF (heart failure with reduced ejection fraction) CKD (chronic kidney disease) COPD (chronic obstructive pulmonary disease) Depression Essential hypertension GERD (gastroesophageal reflux disease) Hiatal hernia High cholesterol History of ulceration Hypertension Injury of head and neck Kidney disease Left ventricular apical thrombus Loss of hearing Myocardial infarct, old Non-ischemic cardiomyopathy Overweight (BMI 25.0-29.9) Pacemaker Pulmonary fibrosis Shortness of breath on exertion Smoker Stage 2 moderate COPD by GOLD classification Stroke/cerebrovascular accident Symptomatic bradycardia Testicular cancer TIA (transient ischemic attack) Tobacco abuse Vision loss of left eye Wears dentures Wears glasses Home Medications gabapentin 400 mg capsule 400 mg PO BID NEUROPATHY 04/23/19 [History Last Taken 09/28/22] atorvastatin 10 mg tablet 10 mg PO DAILY CHOLESTEROL 04/27/19 [History Last Taken 09/04/23] mirtazapine 15 mg tablet 15 mg PO QHS DEPRESSION 12/03/19 [History Last Taken 10/31/23] isosorbide mononitrate 30 mg tablet,extended release 24 hr 30 mg PO DAILY SHORTNESS OF BREATH 12/24/22 [History Last Taken 10/31/23] buspirone 5 mg tablet 5 mg PO BID ANXIETY 05/11/23 [History Last Taken Unknown] aspirin 81 mg chewable tablet 81 mg PO BREAKFAST BLOOD THINNER #0 tabs 05/12/23 [Rx Last Taken 09/05/23] Oxygen 2 LPM on extertion #1 ea 06/29/23 [Rx Last Taken Unknown] carvedilol 25 mg tablet 25 mg PO BID BLOOD PRESSURE 30 days #60 tabs 09/07/23 [Rx Last Taken Unknown] fluticasone fur. 200 mcg-umeclid 62.5 mcg-vilant 25 mcg inhalat.powder (Trelegy Ellipta) 1 inh inhalation DAILY SHORTNESS OF BREATH/WHEEZING #3 ea 10/04/23 [Rx Last Taken Unknown] amlodipine 10 mg tablet 10 mg PO DAILY BLOOD PRESSURE #30 tabs 10/06/23 [Rx Last Taken Unknown] nitroglycerin 0.4 mg sublingual tablet 0.4 mg sublingual Q5-15M PRN CHEST PAIN #25 tabs 10/06/23 [Rx Last Taken Unknown] omeprazole 40 mg capsule,delayed release 40 mg PO DAILY ACID REFLUX 10/29/23 [History Last Taken 10/31/23] Allergy/AdvReac Type Severity Reaction Status Date / Time LASHONDA Inhibitors Allergy Severe Angioedema Verified 10/31/23 14:03 lisinopril Allergy Severe Angioedema Verified 10/31/23 14:03 ARB-Angiotensin Receptor Allergy Angioedema Verified 10/31/23 14:03 Antagonist Family History Father Cancer bone AAA (abdominal aortic aneurysm) Grandfather AAA (abdominal aortic aneurysm) Uncle AAA (abdominal aortic aneurysm) Surgical History H/O umbilical hernia repair History of AAA (abdominal aortic aneurysm) repair History of arthroscopic knee surgery History of corneal transplant History of foot surgery History of implantable cardiac defibrillator (ICD) History of knee surgery History of left heart catheterization (02/08/20) History of orchiectomy History of surgery on left wrist History of tonsillectomy Implantable cardioverter-defibrillator (ICD) in situ (08/21/20) Trigeminal neuralgia Social History household members: spouse Smoking Status: Former smoker Tobacco: How many years used: 50 how long ago did patient quit smoking: Quit 08/11/23. alcohol intake: never substance use type: does not use caffeine: Yes Type: coffee Number of servings: 5 ROS ROS Narrative Admission Review of Systems: CONSTITUTIONAL: No weight loss, fever, chills, + weakness or fatigue. HEENT: Eyes: No visual loss, blurred vision, double vision or yellow sclerae. Ears, Nose, Throat: No hearing loss, sneezing, congestion, runny nose or sore throat. SKIN: No rash or itching, lesions, wounds. CARDIOVASCULAR: + Orthopnea, weight gain. No chest pain, palpitations, edema, syncopal events. RESPIRATORY: + shortness of breath, wheezing, mild non-productive cough. No marked sputum, hemoptysis. GASTROINTESTINAL: No anorexia, nausea, vomiting or diarrhea, abdominal pain, melena, BRBPR. GENITOURINARY: No dysuria, frequency, urgency or retention. NEUROLOGICAL: No headache, dizziness, syncope, paralysis, ataxia, numbness or tingling in the extremities, focal weakness, change in bowel or bladder control, seizure. MUSCULOSKELETAL: + muscle, back pain, joint pain or stiffness. HEMATOLOGIC: + anemia, easy bleeding/bruising. LYMPHATICS: No enlarged nodes. No history of splenectomy. PSYCHIATRIC: + history of depression or anxiety. ENDOCRINOLOGIC: No reports of sweating, cold or heat intolerance. No polyuria or polydipsia. ALLERGIES: + History of angioedema. Vital Signs Vital Signs Vital Signs: 10/31/23 14:03 10/31/23 14:30 10/31/23 14:38 Temperature 97.8 F Temperature Source Temporal Pulse Rate 63 69 61 Respiratory Rate 22 H 22 H 18 Respiratory Effort Respiratory Depth Respiratory Pattern Tachypnea Blood Pressure 149/85 H Blood Pressure Mean 106 Pulse Ox 95 96 Oxygen Delivery Method Nasal Cannula Room Air Oxygen Flow Rate (L/min) 2 10/31/23 14:38 10/31/23 16:02 10/31/23 17:34 Temperature Temperature Source Pulse Rate 70 80 Respiratory Rate 19 H 15 Respiratory Effort Short of Breath Respiratory Depth Normal Respiratory Pattern Tachypnea Blood Pressure 159/86 H 175/85 H Blood Pressure Mean 110 115 Pulse Ox 89 99 Oxygen Delivery Method Nasal Cannula Nasal Cannula Oxygen Flow Rate (L/min) 2 2 Weight Weight: 205 lb 4.006 oz Body Mass Index (BMI) 33.1 Physical Exam Narrative Physical Examination: General: Awake, alert, oriented x 3 and cooperative, seated upright in the ED bed, fatigued, notes dyspnea mildly improved with ED interventions but still audible wheezing. Skin: Normal color, normal turgor, no icterus, no cyanosis except occasional staged ecchymoses. HEENT: AT/NC, EOMI, PERRLA, MMM, no carotid bruits, + JVD noted. Lungs: Diminished, > bases, mildly increased RR but no distress, notable diffuse wheezing, no overt rales appreciated, no rhonchi. Heart: Regular rate and regular rhythm; no gallop, rub audible. Abdomen: Soft, obese, NTTP, ND, normal BS, no appreciated HSM. Extremities: No cyanosis, no clubbing, or noted peripheral edema. Neurological: Patient awake, alert, oriented as noted, cognitive function intact; pupils equally reactive to light and accommodation, cranial nerves grossly normal, moving all 4 extremities, no focal deficits, strength severely globally decreased secondary to acute presentation. Psychiatric: Affect appears fatigued, no acute evidence of depressive or anxiety feelings. Results Lab / Micro Data 10/31/23 14:06 10/31/23 14:06 Labs: Laboratory Results - last 24 hr 10/31/23 14:06: WBC 11.6 H, RBC 2.95 L, Hgb 9.2 L, Hct 29.9 L, MCV 101.4 H, MCH 31.2, MCHC 30.8 L, RDW Std Deviation 62.2 H, RDW Coeff of Karen 16.7 H, Plt Count 173, MPV 10.5, Immature Gran % (Auto) 1.500 H, Neut % (Auto) 79.2 H, Lymph % (Auto) 12.4 L, [place] % (Auto) 6.5, Eos % (Auto) 0.3, Baso % (Auto) 0.1, Absolute Neuts (auto) 9.2 H, Absolute Lymphs (auto) 1.44, Nucleated RBC % 0, Sodium 141, Potassium 4.3, Chloride 108 H, Carbon Dioxide 30.0, Anion Gap 3 L, BUN 41 H, C reatinine 2.08 H, Estim Creat Clear Calc 29.40, Est GFR (MDRD) Af Amer 41 L, Est GFR (MDRD) Non-Af 34 L, BUN/Creatinine Ratio 19.7, Glucose 108 H, Calcium 8.5, Total Bilirubin 0.50, AST 56 H, ALT 68 H, Alkaline Phosphatase 77, Troponin I High Sens 39, B-Natriuretic Peptide 671.1 H, Total Protein 6.5, Albumin 3.2, Globulin 3.3, Albumin/Globulin Ratio 1.0 Micro: Microbiology 10/31/23 14:27 Mucosa - Nose SARS-CoV-2, Influenza & RSV (PCR) - Final Imagaing Radiology Impression Chest X-Ray 10/31/23 14:14 IMPRESSION: Stable chest with no acute superimposed finding. Electronically Signed: Gordy Alexandra MD at 14:54 EST Reading Location ID and State: [facility] / [place] , Service support , Assessment & Plan Assessment/Plan (1) COPD exacerbation: PLAN: Plan The patient is a 73 y/o M w/ PMHx: PAF, HFrEF, CKD stage IV (baseline Cr 2.25), HTN, HLD, HFpEF, Conduction system disorder s/p pacemaker placement/AICD, Hx LV apical thrombus, Chronic anemia, Hx AAA infrarenal s/p repair, BPPV, GERD, Hx Trigeminal neuralgia, Hx testicular CA s/p L orchiectomy/radiation, Hx CVA with no residual deficits, Chronic Hypoxic Respiratory Failure secondary to underlying Pulmonary Fibrosis and COPD (2-4L NC baseline), recent admission 10/29/23-10/30/23 secondary to admission with acute kidney injury superimposed on CKD stage IV with low blood pressure and lightheadedness with symptomatic hypotension as well as anemia with reportedly a recent positive stool guaiac with planned outpatient colonoscopy 11/02/2023 in the [facility] system who now re-presents to the [facility] ED on 10/31/23 with history of onset of significant dyspnea starting approximately 4 PM with increased weight gain of reportedly 6 pounds overnight prompting call to his PCP who directed him to the hospital for evaluation with stable chronic retrosternal chest pain that been ongoing for years however he does as noted have increased dyspnea sensation prompting ED evaluation. #1. Acute on Chronic Hypoxic Respiratory Failure secondary to Acute Decompensated HFrEF with possible Acute on Chronic COPD Exacerbation complicated to underlying Pulmonary Fibrosis: Likely secondary to recent hydration with CHERY on CKD stage IV, no severe overload on CXR but BNP mildly elevated and also increased weight gain 6lb, sudden onset so concern primarily could be CHF exacerbation. Will admit to PCU, maintain on cardiac telemetry, obtain cardiac enzyme series, obtain serial EKGs, administered IV lasix in the ED x 1, will administer 40 mg IV daily only given recent CHERY, monitor I/Os, continue medical therapy, obtain TSH and magnesium level. Most recent ECHO noted 05/12/23 with moderate concentric LVH, LVEF 45%, diastolic fx indeterminate. Procalcitonin requested. Respiratory viral panel requested as well as sputum Cx. #2. Chronic Kidney Disease Stage IV with recent CHERY admission, improved: Admission BUN/Cr 41/2.08, baseline renal function most recently reported as 2.5, improved from recent CHERY presentation, judicious use of IV Lasix as noted secondary to presentation #1, will closely trend CM #3. History CVA: No residual deficits, continue aspirin, statin, hypertensive regimen as noted, no diabetic history. #4. AAA: Status post repair, continue aspirin, statin, amlodipine, Coreg, isosorbide and pulse dose IV Lasix as noted given presentation concerns. #5. History symptomatic bradycardia/conduction system disorder: Status post pacemaker status/AICD, encourage continued outpatient follow-up with cardiology as previously arranged. #6. PAF: Per current list patient is not chronically anticoagulated, continue Coreg home regimen. #7. History of last apical thrombus: Not currently chronically anticoagulated, most recent echocardiogram with no acute findings as noted 05/12/2023. #8. Chronic macrocytic anemia: Admission hemoglobin 10.2, MCV 99.1, baseline he moglobin primarily 10-11, stable, continue to trend. #9. Anxiety and depression: We will continue patient home mirtazapine and buspirone home regimen. #10. Hypertension: Will continue amlodipine, Coreg, isosorbide as well as pulse dose IV Lasix as noted given presentation. #11. Hyperlipidemia: Continue home statin regimen. AM FLP. #12. Chronic neuropathy: We will continue patient home gabapentin regimen. #13. Tobacco Abuse: Encouraged cessation, inpatient consultation per RT, NR if desired. #14. History testicular cancer: s/p radiation treatment, considered in remission, encourage continued outpatient follow-up as previously arranged. #15. GERD: We continue patient home PPI. #16. DVT prophylaxis: Heparin. #17. CODE status: Patient HCPOA and living will are not in place but his who is present he notes would be his decision-maker if this was necessary. Discussed CODE status at length including difference between FULL code, DNR-CCA and DNR-CC status. Following discussions about the differences in these status, requested Full Code status. Advanced Care Planning Face to Face Time: 16 minutes. Charges/Coding Visit Charges Inpatient E&M: 80046 Init Hosp L3 Procedures Hospitalists Procedures: 05340 Advncd Care Plan 30 Min
[2023-10-31] MEDS: Furosemide 40 MG/4 ML Vial IV (18:17)
[2023-10-31 18:50] LABS: Magnesium 2.7 mg/dL (1.6-2.6)
[2023-10-31 19:01] LABS: Procalcitonin 0.06 ng/mL (0.00-0.09)
[2023-10-31 21:17] LABS: Troponin-I HS 39 pg/mL (3.0-78.0)
[2023-10-31] MEDS: Mirtazapine 15 MG Tablet PO (21:55)
[2023-10-31] MEDS: Carvedilol 25 MG Tablet PO (21:55)
[2023-10-31] MEDS: Gabapentin 400 MG Capsule PO (21:55)
[2023-10-31] MEDS: amLODIPine 10 MG Tablet PO (21:55)
[2023-10-31] MEDS: 0.9% Saline Lock 10 ML Syringe IV (21:56)
[2023-10-31 23:04] LABS: Troponin-I HS 36 pg/mL (3.0-78.0)
[2023-11-01] VITALS (16 sets, daily range): BP systolic 133–172; BP diastolic 55–74; PULSE 62–89; RESP 16–20; TEMP 36.6–36.9; O2SAT 83–99; BMI 32.3
[2023-11-01] MEDS: Albuterol 2.5 MG/3 ML VIAL.NEB. INHALATION (04:10)
[2023-11-01] MEDS: 0.9% Saline Lock 10 ML Syringe IV ×2 (05:29→20:59)
[2023-11-01] MEDS: Ipratropium/Albuterol Sulfate 3 ML AMPUL.NEB INHALATION ×4 (07:08→20:16)
[2023-11-01 08:10] LABS: Absolute Lymphocyte Count 0.55 X10^3/uL (0.83-4.51); Absolute Neutrophil Count 7.6 X10^3/uL (2.0-7.7); Basophil# 0.01 X10^3/uL; Basophil% 0.1 % (0-1); Hematocrit 27.8 % (40-54); Lymphocyte # 0.55 X10^3/ul (0.83-4.51); Lymphocyte % 6.5 % (19-41); Mean Corp Hgb Conc 32.4 g/dL (32-36); Mean Corpuscular Hgb 31.9 pg (27.0-32.0); Mean Corpuscular Volume 98.6 fL (80-94); Mean Platelet Vol. 10.8 fl (6.2-12.0); Monocyte# 0.15 X10^3/uL; Monocyte% 1.8 % (0-10); NRBC Flagged by Analyzer 0 % (0-5); Neutrophil # 7.61 X10^3/uL (2.7-7.7); Neutrophil % 89.8 % (47-70); POSITIVE DIFFERENTIAL YES; Platelet Count 171 K/mm3 (150-450); RBC Distribution Width CV 16.4 % (11.6-14.6); RBC Distribution Width SD 58.9 fl (35.1-43.9); Red Blood Count 2.82 M/mm3 (4.6-6.2); White Blood Count 8.5 K/mm3 (4.4-11.0)
--- NOTE | 2023-11-01 08:13 | PN.HOSP_ITS ---
Reason for Visit Reason for Visit: Diagnoses Chronic obstructive pulmonary disease with (acute) exacerbation (10/31/23) Subjective Subjective Patient is a 73-year-old gentleman recently admitted for acute kidney injury management and discharged home presented back to the emergency department with progressive shortness of breath. An assessment of acute congestive heart failure made admitted to a monitored bed for further management Objective Data Objective Data Vital Signs: Vital Signs Temp Pulse Resp BP Pulse Ox O2 Del Method O2 Flow Rate 98 F 74 20 H 145/63 H 98 Nasal Cannula 4 11/01/23 02:28 11/01/23 04:11 11/01/23 04:11 11/01/23 02:28 11/01/23 02:28 11/01/23 02:33 11/01/23 02:33 Oxygen Flow Rate (L/min) 4 Oxygen Delivery Method Nasal Cannula Weight: 90.7 kg Body Mass Index (BMI) 32.3 Intake & Output: Intake and Output for Last 24 Hours 10/30/23 10/31/23 11/01/23 23:59 23:59 23:59 Output Total 1850 / 4750 3300 / 3300 Balance -1850 / -4750 -3300 / -3300 Lab / Micro Data 11/01/23 07:40 11/01/23 07:40 Labs: Laboratory Results - last 24 hr 10/31/23 14:06: WBC 11.6 H, RBC 2.95 L, Hgb 9.2 L, Hct 29.9 L, MCV 101.4 H, MCH 31.2, MCHC 30.8 L, RDW Std Deviation 62.2 H, RDW Coeff of Karen 16.7 H, Plt Count 173, MPV 10.5, Immature Gran % (Auto) 1.500 H, Neut % (Auto) 79.2 H, Lymph % (Auto) 12.4 L, [place] % (Auto) 6.5, Eos % (Auto) 0.3, Baso % (Auto) 0.1, Absolute Neuts (auto) 9.2 H, Absolute Lymphs (auto) 1.44, Nucleated RBC % 0, Sodium 141, Potassium 4.3, Chloride 108 H, Carbon Dioxide 30.0, Anion Gap 3 L, BUN 41 H, Creatinine 2.08 H, Estim Creat Clear Calc 29.40, Est GFR (MDRD) Af Amer 41 L, Est GFR (MDRD) Non-Af 34 L, BUN/Creatinine Ratio 19.7, Glucose 108 H, Calcium 8.5, Magnesium 2.7 H, Total Bilirubin 0.50, AST 56 H, ALT 68 H, Alkaline Phosphatase 77, Troponin I High Sens 39, B-Natriuretic Peptide 671.1 H, Total Protein 6.5, Albumin 3.2, Globulin 3.3, Albumin/Globulin Ratio 1.0 10/31/23 18:20: Procalcitonin 0.06 10/31/23 20:30: Troponin I High Sens 39 10/31/23 22:19: Troponin I High Sens 36 Micro: Microbiology 10/31/23 19:30 Mucosa - Nasopharyngeal Respiratory Panel (PCR) - Final 10/31/23 14:27 Mucosa - Nose SARS-CoV-2, Influenza & RSV (PCR) - Final Radiography Diagnostic Testing: Radiology Impression Chest X-Ray 10/31/23 14:14 IMPRESSION: Stable chest with no acute superimposed finding. Electronically Signed: Gordy Alexandra MD at 14:54 EST , Physical Exam Narrative GENERAL: cooperative HEENT: Atraumatic; normocephalic EYES; Anicteric, Normal Conjunctiva NECK; supple, normal thyroid, RESPIRATORY: Diminished to auscultation CARDIOVASCULAR: Regular S1 S2, GI: soft, normoactive bowel sounds, : No Renal angle tenderness; EXTREMITIES: edema, no clubbing, MUSCULOSKELETAL: no muscle wasting NEURO: Awake; no lateralizing signs. SKIN: No Rash PSYCH; Flat affect Assessment & Plan Assessment/Plan (1) COPD exacerbation: PLAN: Plan Patient is a 73-year-old gentleman recently admitted for acute kidney injury management and discharged home presented back to the emergency department with progressive shortness of breath. An assessment of acute congestive heart failure made admitted to a monitored bed for further management 1. Acute on chronic congestive heart failure with preserved ejection fraction ? Patient recent echo cho from 07/11/2023 demonstrated EF of 50%. Admitted to monitored bed managed with strict input and output, daily weight, low-sodium diet as well as diuretic therapy. 2. Chronic kidney disease stage IV ? With recent hospitalization with CHERY. Patient kidney function back to b aseline 3. Anemia with recent guaiac positive stool ? Patient scheduled to undergo colonoscopy on 11/02/2023 at [facility] however with patient currently being on admission did discuss with patient and family to reschedule the procedure 4. Essential hypertension ? Patient recently experienced episodes of hypotension. His antihypertensives regimen have been adjusted. Patient blood pressure however remains elevated at this point 5. Class I obesity with BMI of 32 ? Complicating care weight loss advised 6. Dyslipidemia -Patient is on statin therapy, continued at home dose 7. Chronic hypoxic respiratory failure ? Secondary to pulmonary fibrosis as well as COPD patient is on baseline home oxygen ? Remains stable 8. 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 Stable 10. History of testicular cancer -status post Left orchiectomy with subsequent radiation 11. History of previous CVA ? With no residual effect currently remains stable 12. History of trigeminal neuralgia ? Status post ablation 13. History of infrarenal AAA ? Status post repair 14. BPPV ? Symptomatic treatment as needed 15. GERD ? On PPI 16. DVT prophylaxis ? SC heparin Time spent in the patient's overall evaluation,decision-making process, review of diagnostic data, adjustment of management, discussion with other providers, nursing nursing and ancillary staff involved in patient's care documentation, 50 minutes minutes Charges/Coding Visit Charges Inpatient E&M: 17879 [facility] L3
[2023-11-01 08:20] LABS: Differential Indicated SCAN CRITERIA MET
[2023-11-01] MEDS: amLODIPine 10 MG Tablet PO (08:36)
[2023-11-01] MEDS: Carvedilol 25 MG Tablet PO ×2 (08:37→20:59)
[2023-11-01] MEDS: Furosemide 40 MG/4 ML Vial IV (08:37)
[2023-11-01] MEDS: Isosorbide Mononitrate 30 MG Tablet PO (08:37)
[2023-11-01] MEDS: Pantoprazole Sodium 40 MG Tablet PO (08:37)
[2023-11-01] MEDS: Aspirin 81 MG TAB.CHEW PO (08:37)
[2023-11-01] MEDS: Gabapentin 400 MG Capsule PO ×2 (08:37→21:29)
[2023-11-01 08:51] LABS: ALB/GLOB Ratio 0.9 RATIO (0.9-2.4); AST(SGOT) 28 U/L (15-37); Alanine Aminotransfer ALT/SGPT 54 U/L (16-61); Alkaline Phosphatase 77 U/L (45-117); Anion Gap 8 (5-15); BUN 47 mg/dL (7-18); BUN/Creat Ratio 22.4 RATIO (10-20); Calcium,Total 8.4 mg/dL (8.5-10.1); Chloride 105 mmol/L (98-107); Cholesterol 173 mg/dL (200); EST Glomerular Filtration Rate 33 mL/min (>60); Est Glom Filt Rate - Afr Amer 40 mL/min (>60); Estimated Creatinine Clearance 29.12 ml/min; Globulin 3.4 g/dL (2.2-4.2); Glucose 209 mg/dL (74-106); High Density Lipoprotein 79 mg/dL; Potassium 4.1 mmol/L (3.5-5.1); Protein, Total 6.4 g/dL (6.4-8.2); Sodium Level 140 mmol/L (136-145); Thyroid Stim Hormone (TSH) 0.22 uIU/mL (0.358-3.74); Triglycerides 51 mg/dL; Very Low Density Lipoprotein 10 mg/dL (5-40)
[2023-11-01 09:04] LABS: Differential Comment SCANNED
--- NOTE | 2023-11-01 14:00 | CASEMGMT ---
CHRIST WALKER chart review: Patient was admitted 10/29-10/30/23 for CHERY. Patient was discharged to home with family support and follow-up plans in place. Patient returned 10/31/23 for SOB and was admitted for acute on chronic respiratory failure related to CHF and COPD exacerbation. CHRIST WALKER in to discuss readmission and discharge planning, on speaker phone. Patient was taking medications as prescribed but later states he does not complete his breathing treatments regularly. Patient had been going to follow up appts as scheduled. Patient states he just wears is oxygen at night, order verified with [employer] for 2lpm with exertion and 4lpm at HS. CHRIST WALKER discussed following diet and fluid restrictions and importance on taking medication consistently. Patient to discharge home with family support and follow-up plans in place. Will monitor for increase in home oxygen.
[2023-11-01] MEDS: hydrALAZINE 50 MG Tablet PO ×2 (15:34→20:58)
[2023-11-01] MEDS: Atorvastatin Calcium 10 MG Tablet PO (20:58)
[2023-11-01] MEDS: Senna/Docusate Sodium 1 Tablet 2 TABLET PO (20:58)
[2023-11-01] MEDS: busPIRone 5 MG Tablet PO (20:59)
[2023-11-01] MEDS: Mirtazapine 15 MG Tablet PO (21:29)
[2023-11-02] VITALS (40 sets, daily range): BP systolic 136–175; BP diastolic 55–78; PULSE 58–88; RESP 14–21; TEMP 36.3–36.6; O2SAT 87–100; BMI 32.4
[2023-11-02] MEDS: hydrALAZINE 50 MG Tablet PO ×3 (05:40→20:29)
[2023-11-02] MEDS: 0.9% Saline Lock 10 ML Syringe IV ×6 (05:40→20:30)
[2023-11-02] MEDS: busPIRone 5 MG Tablet PO ×2 (05:40→20:29)
[2023-11-02 06:24] LABS: Absolute Lymphocyte Count 0.62 X10^3/uL (0.83-4.51); Absolute Neutrophil Count 8.6 X10^3/uL (2.0-7.7); Basophil# 0.01 X10^3/uL; Basophil% 0.1 % (0-1); Hematocrit 28.8 % (40-54); Lymphocyte # 0.62 X10^3/ul (0.83-4.51); Lymphocyte % 6.4 % (19-41); Mean Corp Hgb Conc 31.3 g/dL (32-36); Mean Corpuscular Hgb 31.1 pg (27.0-32.0); Mean Corpuscular Volume 99.7 fL (80-94); Mean Platelet Vol. 10.8 fl (6.2-12.0); Monocyte# 0.28 X10^3/uL; Monocyte% 2.9 % (0-10); NRBC Flagged by Analyzer 0 % (0-5); Neutrophil # 8.58 X10^3/uL (2.7-7.7); Neutrophil % 88.2 % (47-70); Platelet Count 163 K/mm3 (150-450); RBC Distribution Width CV 16.4 % (11.6-14.6); RBC Distribution Width SD 60.1 fl (35.1-43.9); Red Blood Count 2.89 M/mm3 (4.6-6.2); White Blood Count 9.7 K/mm3 (4.4-11.0)
[2023-11-02 06:55] LABS: Anion Gap 7 (5-15); BUN 51 mg/dL (7-18); BUN/Creat Ratio 23.4 RATIO (10-20); Calcium,Total 8.5 mg/dL (8.5-10.1); Chloride 105 mmol/L (98-107); Creatinine, Serum 2.18 mg/dL (0.70-1.30); EST Glomerular Filtration Rate 32 mL/min (>60); Est Glom Filt Rate - Afr Amer 39 mL/min (>60); Estimated Creatinine Clearance 32.86 ml/min; Glucose 211 mg/dL (74-106); Magnesium 2.5 mg/dL (1.6-2.6); Phosphorus 3.9 mg/dL (2.5-4.9); Potassium 3.8 mmol/L (3.5-5.1); Sodium Level 140 mmol/L (136-145)
[2023-11-02] MEDS: Ipratropium/Albuterol Sulfate 3 ML AMPUL.NEB INHALATION ×5 (07:11→22:59)
[2023-11-02] MEDS: amLODIPine 10 MG Tablet PO (09:09)
[2023-11-02] MEDS: Carvedilol 25 MG Tablet PO ×2 (09:09→20:30)
[2023-11-02] MEDS: Isosorbide Mononitrate 30 MG Tablet PO (09:09)
[2023-11-02] MEDS: Aspirin 81 MG TAB.CHEW PO (09:09)
[2023-11-02] MEDS: Pantoprazole Sodium 40 MG Tablet PO (09:10)
[2023-11-02] MEDS: Furosemide 40 MG/4 ML Vial IV (09:12)
[2023-11-02] MEDS: Gabapentin 400 MG Capsule PO ×2 (09:16→20:30)
--- NOTE | 2023-11-02 09:58 | PN.HOSP_ITS ---
Reason for Visit Reason for Visit: Diagnoses Chronic obstructive pulmonary disease with (acute) exacerbation (10/31/23) Subjective Subjective Patient seen. Appears fairly stable. Plan is for patient to be assessed for home oxygen with a 6-minute walk Objective Data Objective Data Vital Signs: Vital Signs Temp Pulse Resp BP Pulse Ox O2 Del Method O2 Flow Rate 97.9 F 67 16 166/76 H 97 Nasal Cannula 2 11/02/23 09:05 11/02/23 09:05 11/02/23 09:05 11/02/23 09:05 11/02/23 09:05 11/02/23 09:05 11/02/23 09:05 FiO2 35 11/02/23 04:26 Oxygen Flow Rate (L/min) 2 Oxygen Delivery Method Nasal Cannula Weight: 91.2 kg Body Mass Index (BMI) 32.4 Intake & Output: Intake and Output for Last 24 Hours 10/31/23 11/01/23 11/02/23 23:59 23:59 23:59 Intake Total 840 / 840 350 / 350 Output Total 1850 / 4750 4950 / 5450 1100 / 1100 Balance -1850 / -4750 -4110 / -4610 -750 / -750 Lab / Micro Data 11/02/23 06:00 11/02/23 06:00 Labs: Laboratory Results - last 24 hr 11/02/23 06:00: WBC 9.7, RBC 2.89 L, Hgb 9.0 L, Hct 28.8 L, MCV 99.7 H, MCH 31.1, MCHC 31.3 L, RDW Std Deviation 60.1 H, RDW Coeff of Karen 16.4 H, Plt Count 163, MPV 10.8, Immature Gran % (Auto) 2.400 H, Neut % (Auto) 88.2 H, Lymph % (Auto) 6.4 L, [place] % (Auto) 2.9, Eos % (Auto) 0.0, Baso % (Auto) 0.1, Absolute Neuts (auto) 8.6 H, Absolute Lymphs (auto) 0.62 L, Nucleated RBC % 0, Sodium 140, Potassium 3.8, Chloride 105, Carbon Dioxide 28.0, Anion Gap 7, BUN 51 H, Creatinine 2.18 H, Estim Creat Clear Calc 32.86, Est GFR (MDRD) Af Amer 39 L, Est GFR (MDRD) Non-Af 32 L, BUN/Creatinine Ratio 23.4 H, Glucose 211 H, Calcium 8.5, Phosphorus 3.9, Magnesium 2.5 Micro: Microbiology 11/01/23 04:45 Sputum, Expectorated/Coughed Gram Stain - Final 10/31/23 19:30 Mucosa - Nasopharyngeal Respiratory Panel (PCR) - Final 10/31/23 14:27 Mucosa - Nose SARS-CoV-2, Influenza & RSV (PCR) - Final Physical Exam Narrative GENERAL: cooperative HEENT: Atraumatic; normocephalic EYES; Anicteric, Normal Conjunctiva NECK; supple, normal thyroid, RESPIRATORY: Diminished to auscultation CARDIOVASCULAR: Regular S1 S2, GI: soft, normoactive bowel sounds, : No Renal angle tenderness; EXTREMITIES: edema, no clubbing, MUSCULOSKELETAL: no muscle wasting NEURO: Awake; no lateralizing signs. SKIN: No Rash PSYCH; Flat affect Assessment & Plan Assessment/Plan (1) COPD exacerbation: PLAN: Plan Patient is a 73-year-old gentleman recently admitted for acute kidney injury management and discharged home presented back to the emergency department with progressive shortness of breath. An assessment of acute congestive heart failure made admitted to a monitored bed for further management 1. Acute on chronic congestive heart failure with preserved ejection fraction ? Patient recent echo cho from 07/11/2023 demonstrated EF of 50%. Admitted to monitored bed managed with strict input and output, daily weight, low-sodium diet as well as diuretic therapy. 2. Acute on chronic respiratory failure ? Secondary to pulmonary fibrosis. Patient is on baseline oxygen 4 L at night, plan is to be assessed for continuous oxygen need with a 6-minute walk 3. Chronic kidney disease stage IV ? With recent hospitalization with [facility]. Patient kidney function back to baseline 4. Anemia with recent guaiac positive stool ? Patient scheduled to undergo colonoscopy on 11/02/2023 at [facility] however with patient currently being on admission did discuss with patient and family to reschedule the procedure 5. Essential hypertension ? Patient recently experienced episodes of hypotension. His antihypertensives regimen have been adjusted. Patient blood pressure however remains elevated at this point 6. Dyslipidemia -Patient is on statin therapy, continued at home dose 7. Class I obesity with BMI of 32 ? Complicating care weight loss advised 8. 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 Stable 10. History of testicular cancer -status post Left orchiectomy with subsequent radiation 11. History of previous CVA ? With no residual effect currently remains stable 12. History of trigeminal neuralgia ? Status post ablation 13. History of infrarenal AAA ? Status post repair 14. BPPV ? Symptomatic treatment as needed 15. GERD ? On PPI 16. DVT prophylaxis ? SC heparin Time spent in the patient's overall evaluation,decision-making process, review of diagnostic data, adjustment of management, discussion with other providers, nursing nursing and ancillary staff involved in patient's care documentation, 40 minutes minutes Charges/Coding Visit Charges Inpatient E&M: 93122 Subs Hosp L2
--- NOTE | 2023-11-02 12:06 | EKG12_ITS ---
Test Reason : CP Blood Pressure : / mmHG Vent. Rate : 059 BPM Atrial Rate : 059 BPM P-R Int : 176 ms QRS Dur : 110 ms QT Int : 450 ms P-R-T Axes : 082 -15 226 degrees QTc Int : 445 ms Sinus bradycardia Left ventricular hypertrophy with repolarization abnormality ( R in aVL , [place] product , Romhilt-E stes ) Abnormal ECG When compared with ECG of 31-OCT-2023 14:08, Nonspecific T wave abnormality now evident in Anterior leads Confirmed by SINAI BRAXTON, GUILLERMO ([id number]), online editor NANI ALFARO ([id number]) on 11/07/2023 1:58:56 PM Referred By: KAREN Confirmed By:GUILLERMO RAWLS MD
--- NOTE | 2023-11-02 12:10 | CT_ITS ---
We are attempting to reach an attending provider to discuss findings. An addendum with communication details will be sent when the communication is complete. STUDY: CT HEAD STROKE PROTOCOL W/O CONTRAST INJECTION REASON FOR EXAM: Male, 73 years old. Stroke alert RADIATION DOSAGE (If Supplied By Facility): CTDIvol = ( 44.99 ) mGy, DLP = ( 796.11 ) mGycm TECHNIQUE: Transaxial CT imaging of the brain was performed without administration of intravenous contrast material. Individualized dose optimization techniques were used for this CT. COMPARISON: Comparison is made with prior study dated September 05, 2023. FINDINGS: Normal soft tissue structures. Normal calvarium. There is mild cerebral atrophy with widening of the extra-axial spaces and ventricular dilatation. There are areas of decreased attenuation within the white matter tracts of the supratentorial brain, consistent with microvascular disease changes. Normal basal ganglia and thalami. Normal brainstem. Normal cerebellum. There is no intracranial hemorrhage. There are no findings of an acute ischemic infarction. Atherosclerotic calcification of the cavernous portions of the internal carotid arteries bilaterally. Normal visualized paranasal sinuses. ASPECT score: 10 CT/STROKE Brain/Head without Cont IMPRESSION: Chronic involutional changes of the brain. Electronically Signed: James Pérez MD at 12:29 EST ,
--- NOTE | 2023-11-02 12:18 | CT_ITS ---
We are attempting to reach an attending provider to discuss findings. An addendum with communication details will be sent when the communication is complete. STUDY: CTA HEAD AND NECK WITH CONTRAST REASON FOR EXAM: Male, 73 years old. STROKE RADIATION DOSAGE (If Supplied By Facility): CTDIvol = ( 29.06 ) mGy, DLP = ( 703.13 ) mGycm TECHNIQUE: CT angiography was performed with a multi-detector CT scanner. Data acquisition was obtained from the skull base through the vertex following intravenous administration of IV 75mL [id number]-[id number]. MIP images were reconstructed from the axial data set. Post-processing of the angiographic images was performed, with multiplanar reformation and 3D reconstruction. Individualized dose optimization techniques were used for this CT. COMPARISON: No relevant priors. FINDINGS: Normal bilateral petrous carotid arteries. There is calcified plaque formation of the right cavernous carotid artery, without a cross-sectional luminal stenosis. There is calcified plaque formation of the left cavernous carotid artery, without a cross-sectional luminal stenosis. Normal right A1 segments of the anterior cerebral artery. Normal left A1 segments of the anterior cerebral artery. Normal intact anterior communicating artery (ACOM). Normal bilateral A2 segments of the anterior cerebral arteries. Normal right M1 and M2 segments of the middle cerebral arteries, with a normal M1 bifurcation. Normal left M1 and M2 segments of the middle cerebral arteries, with a normal M1 bifurcation. Normal right posterior communicating artery (PCOM). Normal left posterior communicating artery (PCOM). Normal bilateral vertebral arteries. Normal basilar artery with a normal basilar bifurcation. The visualized bilateral superior cerebellar (SCA) arteries are normal. Normal bilateral P1, P2 and visualized P3 segments of the posterior cerebral arteries. There is no demonstrated aneurysm of the [place]. There is no demonstrated abnormality of the visualized brain. AORTIC ARCH: There is atherosclerotic calcific plaque formation of the aortic arch and great vessels arising from the aortic arch, without a hemodynamically significant stenosis. Atherosclerotic thrombus is seen at the level of the aortic arch. There is a normal origin of the brachiocephalic, left common carotid, and left subclavian arteries. Normal origins of the brachiocephalic, left common carotid, and left subclavian arteries. RIGHT CAROTID ARTERIES: Normal right common carotid artery (CCA). Normal right common carotid bulb. There is mild atherosclerotic plaque formation of the origin of the right internal carotid artery with less than 50% cross sectional diameter stenosis. Normal visualized cervical portion of the right internal carotid artery. Normal origin of the right external carotid artery (ECA). LEFT CAROTID ARTERIES: Normal left common carotid artery (CCA). Normal left common carotid bulb. There is mild atherosclerotic plaque formation of the origin of the left internal carotid artery with less than 50% cross sectional diameter stenosis. Normal visualized cervical portion of the left internal carotid artery. Normal origin of the left external carotid artery (ECA). VERTEBRAL ARTERIES: Normal bilateral vertebral arteries. CT/CTA Head AND Neck W/ Contrast IMPRESSION: Nonstenotic calcific plaques at the origin of the right and left internal carotid arteries causing less than 50%. Electronically Signed: James Pérez MD at 13:10 EST ,
[2023-11-02 12:33] LABS: Bedside Glucose 358 mg/dL (74-106)
--- NOTE | 2023-11-02 12:45 | PCM.HOSP.N ---
Hospitalist Note Patient is a 73-year-old old gentleman currently on admission being managed as a case of acute on chronic congestive heart failure. Patient did develop right-sided subjective weakness as well as facial numbness. Stroke alert was called. Patient underwent emergent head CT as well as CTA. Patient did not have any intracranial bleed no large vessel occlusion. Patient was assessed by [facility] teleneurology patient was deemed to be a candidate for tenecteplase. Subsequently transferred to the intensive care unit with initiation of the tenecteplase acute ischemic protocol. Did obtain verbal consent from the patient explaining the risk and benefits of tenecteplase prior to it administration. critical Time spent in the patient's overall evaluation,decision-making process, review of diagnostic data, adjustment of management, discussion with other providers, nursing nursing and ancillary staff involved in patient's care documentation, 75 Minutes Multi [employer] C[employer] Hospitalists' Procedures Procedures: 10141 Critical Care 1st Hr and 27006 Critical Care Addl 30 Min
--- NOTE | 2023-11-02 12:51 | MRI_ITS ---
EXAM: MR HEAD WITHOUT INTRAVENOUS CONTRAST CLINICAL INDICATION: CVA. MRI 24 hours after IV thrombolytic administration, right sided weakness, facial numbness TECHNIQUE: Multiplanar and multisequence MR images of the brain were obtained without intravenous contrast. COMPARISON: MRI brain without contrast 09/06/2023. CT head without contrast and CTA head and neck with contrast 11/02/2023. FINDINGS: BRAIN AND EXTRA-AXIAL SPACES: T2 FLAIR hyperintensity in the forceps major of both cerebral hemispheres are chronic white matter ischemic changes. No intra- or extra-axial hemorrhage. No intracranial mass or mass effect. Posterior fossa structures are unremarkable. Ventricles are appropriate for age. No hydrocephalus. Basal cisterns are patent. No diffusion restriction to suspect acute or subacute ischemic infarct. SELLA: Unremarkable. Normal sella turcica, pituitary gland, infundibular stalk, optic chiasm and hypothalamus. AUDITORY SYSTEM: Unremarkable. The internal auditory canals are patent. BONES/JOINTS: Unremarkable. No discrete lytic or blastic abnormalities. SINUSES: Unremarkable as visualized. Clear. MASTOID AIR CELLS: Unremarkable as visualized. Clear. ORBITS: Unremarkable as visualized. Both globes, extraocular muscles, optic nerves and retrobulbar fat appear unremarkable. VASCULATURE: Unremarkable as visualized. Normal flow voids in the major intracranial circulation. MRI/Brain without Contrast IMPRESSION: 1. No MRI evidence of acute or subacute ischemic infarct or acute intracranial abnormality. 2. Chronic white matter ischemic changes in the forceps major of both cerebral hemispheres. 3. No interval change when compared to 09/06/2023. Electronically Signed: Bart Cooney MD at 13:07 EST ,
[2023-11-02] MEDS: TENECTEPLASE 3283.19999999999982 MG IV (12:57)
--- NOTE | 2023-11-02 13:02 | CHAPLAIN ---
Type of Pastoral Visit ___ Initial Visit ___ Follow-up Visit ___ On-call Visit ___ General Patient Visit ___ Spiritual Assessment ___ Family Conference ___ Bereavement _x__ Rapid Response ___ Code Blue ___ Other (describe below) Pastoral Care Referral From ___ Patient ___ Family ___ Nurse ___ Physician ___ Registered Route Associate ___ Tube Coverer _x__ Other (describe below) Sacrament/Intervention ___ Active listening ___ Anointing ___ Shinto ___ Bereavement ___ Communion ___ Ca exploration ___ ___ Life review ___ Prayer ___ Reconciliation ___ Sacrament of Sick _x__ Supportive presence ___ Wedding ___ Other (describe below) Pastoral Comments responded to stroke alert and patient was being taken to CT; spouse is in the room; offer of support and presence to spouse; brief conversation about recent health issues of pt; spouse denies any needs at this time; will be available for new needs as they arise
--- NOTE | 2023-11-02 13:05 | NURSING ---
patient taken to ct then icu aware and assisted to waiting room . nih completed in room while taking patient to ct and after ct
--- NOTE | 2023-11-02 19:32 | EKG12_ITS ---
Test Reason : CP Blood Pressure : / mmHG Vent. Rate : 060 BPM Atrial Rate : 060 BPM P-R Int : 172 ms QRS Dur : 106 ms QT Int : 428 ms P-R-T Axes : 078 -18 216 degrees QTc Int : 428 ms Normal sinus rhythm Left ventricular hypertrophy with repolarization abnormality ( R in aVL , [place] product ) Abnormal ECG When compared with ECG of 31-OCT-2023 14:08, No significant change was found Confirmed by SINAI BRAXTON, GUILLERMO ([id number]), social media editor NANI ALFARO ([id number]) on 11/04/2023 7:28:35 AM Referred By: KAREN Confirmed By:GUILLERMO RAWLS MD
[2023-11-02 20:12] LABS: Troponin-I HS 30 pg/mL (3.0-78.0)
[2023-11-02] MEDS: Atorvastatin Calcium 80 MG Tablet PO (20:30)
[2023-11-02] MEDS: Mirtazapine 15 MG Tablet PO (20:30)
[2023-11-02 22:27] LABS: Troponin-I HS 28 pg/mL (3.0-78.0)
[2023-11-03] VITALS (35 sets, daily range): BP systolic 116–173; BP diastolic 45–87; PULSE 55–75; RESP 13–20; TEMP 36.1–36.7; O2SAT 92–99; BMI 30.8
--- NOTE | 2023-11-03 01:33 | NURSING ---
Stroke alert called for worsening NIH. Pt having difficulty following commands and much more aphasic than previously. Pt would only nod his head and say yes when asked his name and was having difficulty following commands, resulting in a big increase in NIH. Blood glucose 146. Pt taken to CT w/ primary RN Chinyere Greenberg, negative for bleed; neurologist called and spoke with Dr. Mckeon and ordered head/neck CTA.
[2023-11-03 02:22] LABS: Absolute Lymphocyte Count 0.47 X10^3/uL (0.83-4.51); Absolute Neutrophil Count 10.4 X10^3/uL (2.0-7.7); Basophil# 0.02 X10^3/uL; Basophil% 0.2 % (0-1); Hematocrit 27.9 % (40-54); Hemoglobin 8.7 g/dL (13.0-16.5); Lymphocyte # 0.47 X10^3/ul (0.83-4.51); Lymphocyte % 4.1 % (19-41); Mean Corp Hgb Conc 31.2 g/dL (32-36); Mean Corpuscular Hgb 30.9 pg (27.0-32.0); Mean Corpuscular Volume 98.9 fL (80-94); Mean Platelet Vol. 10.7 fl (6.2-12.0); Monocyte% 2.6 % (0-10); NRBC Flagged by Analyzer 0.2 % (0-5); Neutrophil % 90.1 % (47-70); POSITIVE DIFFERENTIAL YES; Platelet Count 165 K/mm3 (150-450); RBC Distribution Width CV 16.2 % (11.6-14.6); RBC Distribution Width SD 58.4 fl (35.1-43.9); Red Blood Count 2.82 M/mm3 (4.6-6.2); White Blood Count 11.5 K/mm3 (4.4-11.0)
[2023-11-03 02:39] LABS: Anion Gap 7 (5-15); BUN 54 mg/dL (7-18); BUN/Creat Ratio 24.2 RATIO (10-20); Calcium,Total 8.5 mg/dL (8.5-10.1); Chloride 106 mmol/L (98-107); Cholesterol 176 mg/dL (200); Creatinine, Serum 2.23 mg/dL (0.70-1.30); EST Glomerular Filtration Rate 31 mL/min (>60); Est Glom Filt Rate - Afr Amer 38 mL/min (>60); Estimated Creatinine Clearance 32.13 ml/min; Glucose 219 mg/dL (74-106); High Density Lipoprotein 84 mg/dL; Potassium 3.9 mmol/L (3.5-5.1); Sodium Level 142 mmol/L (136-145); Triglycerides 44 mg/dL; Very Low Density Lipoprotein 9 mg/dL (5-40)
[2023-11-03 02:41] LABS: Troponin-I HS 31 pg/mL (3.0-78.0)
[2023-11-03 04:06] LABS: Differential Indicated SCAN CRITERIA MET
[2023-11-03 04:08] LABS: Differential Comment SCANNED
[2023-11-03] MEDS: 0.9% Saline Lock 10 ML Syringe IV (05:03)
[2023-11-03] MEDS: hydrALAZINE 50 MG Tablet PO ×3 (05:03→20:05)
[2023-11-03] MEDS: busPIRone 5 MG Tablet PO ×3 (05:03→20:05)
--- NOTE | 2023-11-03 07:03 | CON.PCM.CC_ITS ---
Assessment & Plan Assessment/Plan (1) CHF exacerbation: PLAN: Plan RECOMMENDATIONS: 1. Continue routine ICU monitoring per protocol. 2. Obtain MRI brain today. 3. Strict bedrest for now. PT/OT evaluations tomorrow. 4. Diuresis as tolerated by hemodynamics and renal function. 5. Continue bronchodilators. 6. Okay to transition from Solu-Medrol to prednisone. 7. Wean supplemental oxygen to maintain saturations at or above 90%. IMPRESSIONS: 1. CVA status post tenecteplase Continue routine monitoring per tenecteplase protocol. Maintain blood pressure less than 180/105 mmHg. PT/OT evaluations once stabilized. Plan for MRI brain today. 2. Chronic hypoxemic respiratory failure/COPD The patient is currently followed by Dr. Mcgill on an outpatient pulmonary basis. He has known advanced age COPD and at 2 L/min baseline oxygen requirement. I do suspect that his presenting symptoms were likely a consequence of decompensated heart failure. Plan to continue scheduled bronchodilators as ordered. Okay to transition from IV Solu-Medrol to prednisone 40 mg daily with plans for a 5-day burst at discharge. 3. Decompensated congestive heart failure Continue management per hospitalist with IV diuretic therapy. 4. History of tobacco dependency/chronic kidney disease/anemia/hypertension/hyperlipidemia Complicates care, management, recovery and prognosis. Continue home medications as indicated. This note was generated with [employer] dictation software. It may contain incorrect words, spelling, and punctuation that were not noted in checking the note before signing. HPI Consult Data Date of Consult: 11/03/23 HPI Narrative Reason for Consultation: CVA status post TNK HPI Narrative: The patient is a 73-year-old male, with a history as outlined below, who pre sented to the emergency department on October 31 via EMS with shortness of breath and wheezing. The patient has a known history of moderate obstructive lung disease and is followed by Dr. Mcgill in the pulmonary medicine clinic. During his last office visit in February 2023, the patient was noted to have a 2 L/min oxygen requirement with ambulation. In addition to the aforementioned, the patient's medical history is also significant for paroxysmal atrial fibrillation, heart failure with reduced ejection fraction, chronic kidney disease and anemia. On presentation to the emergency department, the patient was noted to be afebrile hemodynamically stable. He was maintaining appropriate oxygen sat urations on 2 L/min via nasal cannula. Initial laboratory evaluation revealed a white blood cell count of 12,000. Chemistry profile was notable for a creatinine of 2.08. BNP was elevated at 670 with a normal troponin. Respiratory viral panel was negative. Rapid flu, RSV and influenza were negat dayami. Chest x-ray demonstrated no acute cardiopulmonary process. Echocardiogram from April 2023 demonstrated moderate concentric LVH with an ejection fraction of 45%. The patient was initially admitted to the hospital over concerns for a CHF exacerbation. He did receive diuresis. The patient was doing well until November 02 when he developed right-sided weakness and facial numbness. A stroke alert was called. Neurology consultation was obtained. CT head revealed chronic involutional changes of the brain. CTA head and neck revealed nonstenotic calcific plaques of the origin of the right and left internal carotid arteries. The patient was felt to be a candidate for tenecteplase, which was ultimately administered. He was then admitted to the medical intensive care unit per protocol. 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) Anxiety Anxiety and depression Arthritis Atrial fibrillation Back pain Benign paroxysmal positional vertigo Bradycardia Cancer Chronic abdominal pain Chronic cough Chronic HFrEF (heart failure with reduced ejection fraction) CKD (chronic kidney disease) COPD (chronic obstructive pulmonary disease) Depression Essential hypertension GERD (gastroesophageal reflux disease) Hiatal hernia High cholesterol History of ulceration Hypertension Injury of head and neck Kidney disease Left ventricular apical thrombus Loss of hearing Myocardial infarct, old Non-ischemic cardiomyopathy Overweight (BMI 25.0-29.9) Pacemaker Pulmonary fibrosis Shortness of breath on exertion Smoker Stage 2 moderate COPD by GOLD classification Stroke/cerebrovascular accident Symptomatic bradycardia Testicular cancer TIA (transient ischemic attack) Tobacco abuse Vision loss of left eye Wears dentures Wears glasses Home Medications gabapentin 400 mg capsule 400 mg PO BID NEUROPATHY 04/23/19 [History Last Taken 09/28/22] atorvastatin 10 mg tablet 10 mg PO DAILY CHOLESTEROL 04/27/19 [History Last Taken 09/04/23] mirtazapine 15 mg tablet 15 mg PO QHS DEPRESSION 12/03/19 [History Last Taken 10/31/23] isosorbide mononitrate 30 mg tablet,extended release 24 hr 30 mg PO DAILY SHORTNESS OF BREATH 12/24/22 [History Last Taken 10/31/23] buspirone 5 mg tablet 5 mg PO TID ANXIETY 05/11/23 [History Last Taken Unknown] aspirin 81 mg chewable tablet 81 mg PO BREAKFAST BLOOD THINNER #0 tabs 05/12/23 [Rx Last Taken 09/05/23] Oxygen 2 LPM on extertion #1 ea 06/29/23 [Rx Last Taken Unknown] carvedilol 25 mg tablet 25 mg PO BID BLOOD PRESSURE 30 days #60 tabs 09/07/23 [Rx Last Taken Unknown] fluticasone fur. 200 mcg-umeclid 62.5 mcg-vilant 25 mcg inhalat.powder (Trelegy Ellipta) 1 inh inhalation DAILY SHORTNESS OF BREATH/WHEEZING #3 ea 10/04/23 [Rx Last Taken Unknown] amlodipine 10 mg tablet 10 mg PO DAILY BLOOD PRESSURE #30 tabs 10/06/23 [Rx Last Taken Unknown] nitroglycerin 0.4 mg sublingual tablet 0.4 mg sublingual Q5-15M PRN CHEST PAIN #25 tabs 10/06/23 [Rx Last Taken Unknown] omeprazole 40 mg capsule,delayed release 40 mg PO DAILY ACID REFLUX 10/29/23 [History Last Taken 10/31/23] Allergy/AdvReac Type Severity Reaction Status Date / Time LASHONDA Inhibitors Allergy Severe Angioedema Verified 10/31/23 14:03 lisinopril Allergy Severe Angioedema Verified 10/31/23 14:03 ARB-Angiotensin Receptor Allergy Angioedema Verified 10/31/23 14:03 Antagonist Family History Father Cancer bone AAA (abdominal aortic aneurysm) Grandfather AAA (abdominal aortic aneurysm) Uncle AAA (abdominal aortic aneurysm) Surgical History H/O umbilical hernia repair History of AAA (abdominal aortic aneurysm) repair History of arthroscopic knee surgery History of corneal transplant History of foot surgery History of implantable cardiac defibrillator (ICD) History of knee surgery History of left heart catheterization (02/08/20) History of orchiectomy History of surgery on left wrist History of tonsillectomy Implantable cardioverter-defibrillator (ICD) in situ (08/21/20) Trigeminal neuralgia Social History household members: spouse Smoking Status: Former smoker Tobacco: How many years used: 50 how long ago did patient quit smoking: Quit 08/11/23. alcohol intake: never substance use type: does not use caffeine: Yes Type: coffee Number of servings: 5 ROS ROS Narrative 10 systems were reviewed with pertinent positives as noted in the HPI above. Physical Exam Const alert and no apparent distress General Appearance: cooperative HEENT normocephalic and head/scalp atraumatic Eyes PERRL, EOMs intact bilaterally and conjunctivae normal Neck supple General: trachea midline Chest inspection of chest normal Resp normal respiratory effort Auscultation: diminished lung sounds; Negative for rales, rhonchi or wheezes Cardio regular rate and regular rhythm GI normal to inspection, nondistended, normoactive bowel sounds Extremity no clubbing, cyanosis or edema Skin no rashes or lesions noted Neuro CN's II-XII intact bilaterally and moves all extremities Psych Mood & Affect: flat affect Lab / Micro Data 11/03/23 02:15 11/03/23 02:15 Labs: Laboratory Results - last 24 hr 11/02/23 12:04: POC Glucose 358 H 11/02/23 19:49: Troponin I High Sens 30 11/02/23 21:58: Troponin I High Sens 28 11/03/23 02:15: WBC 11.5 H, RBC 2.82 L, Hgb 8.7 L, Hct 27.9 L, MCV 98.9 H, MCH 30.9, MCHC 31.2 L, RDW Std Deviation 58.4 H, RDW Coeff of Karen 16.2 H, Plt Count 165, MPV 10.7, Immature Gran % (Auto) 3.000 H, Neut % (Auto) 90.1 H, Lymph % (Auto) 4.1 L, [place] % (Auto) 2.6, Eos % (Auto) 0.0, Baso % (Auto) 0.2, Absolute Neuts (auto) 10.4 H, Absolute Lymphs (auto) 0.47 L, Nucleated RBC % 0.2, Differential Comment SCANNED, Sodium 142, Potassium 3.9, Chloride 106, Carbon Dioxide 29.0, Anion Gap 7, BUN 54 H, Creatinine 2.23 H, Estim Creat Clear Calc 32.13, Est GFR (MDRD) Af Amer 38 L, Est GFR (MDRD) Non-Af 31 L, BUN/Creatinine Ratio 24.2 H, Glucose 219 H, Calcium 8.5, Troponin I High Sens 31, Triglycerides 44, Cholesterol 176, LDL Cholesterol 83, VLDL Cholesterol 9, HDL Cholesterol 84 Micro: Microbiology 11/01/23 04:45 Sputum, Expectorated/Coughed Gram Stain - Final 11/01/23 04:45 Sputum, Expectorated/Coughed Respiratory Culture - Prelim inary Presumptive C albicans Imagaing Radiology Impression Brain CT 11/02/23 12:10 IMPRESSION: Chronic involutional changes of the brain. Electronically Signed: James Pérez MD at 12:29 EST , ADDENDUM: 11/02/23 1244 IMPRESSION: Chronic involutional changes of the brain. N.B. : The above Results were Read Back by James Pérez MD to Spencer Franklin and understanding confirmed on 11/02/2023 12:37:49 (ET). Electronically Signed: James Pérez MD at 12:29 EST , Head/Neck CTA 11/02/23 12:18 IMPRESSION: Nonstenotic calcific plaques at the origin of the right and left internal carotid arteries causing less than 50%. Electronically Signed: James Pérez MD at 13:10 EST , ADDENDUM: 11/02/23 1324 IMPRESSION: Nonstenotic calcific plaques at the origin of the right and left internal carotid arteries causing less than 50%. N.B. : The above Results were Read Back by James Pérez MD to Spencer Franklin MD, and understanding confirmed on 11/02/2023 13:17:18 (ET). Electronically Signed: James Pérez MD at 13:10 EST , Charges/Coding Visit Charges Inpatient E&M: 81102 Init Hosp L3
[2023-11-03] MEDS: Ipratropium/Albuterol Sulfate 3 ML AMPUL.NEB INHALATION ×3 (07:13→15:53)
--- NOTE | 2023-11-03 07:30 | PN.HOSP_ITS ---
Reason for Visit Reason for Visit: Diagnoses Chronic obstructive pulmonary disease with (acute) exacerbation (10/31/23) Subjective Subjective Patient did develop right-sided subjective weakness as well as facial numbness. Stroke alert was called. Patient underwent emergent head CT as well as CTA. Patient did not have any intracranial bleed no large vessel occlusion. Patient was assessed by [facility] teleneurology patient was deemed to be a candidate for tenecteplase. Subsequently transferred to the intensive care unit with initiation of the tenecteplase acute ischemic protocol. Did obtain verbal consent from the patient explaining the risk and benefits of tenecteplase prior to it administration. Objective Data Objective Data Vital Signs: Vital Signs Temp Pulse Resp BP Pulse Ox O2 Del Method O2 Flow Rate 97.4 F L 56 L 14 163/70 H 96 Nasal Cannula 2 11/03/23 03:00 11/03/23 07:00 11/03/23 07:00 11/03/23 07:00 11/03/23 07:00 11/03/23 07:00 11/03/23 07:00 FiO2 35 11/02/23 04:26 Oxygen Flow Rate (L/min) [ 2 AMBULATING with Oxygen #1] Oxygen Flow Rate (L/min) 2 Oxygen Delivery Method Nasal Cannula Weight: 86.6 kg Body Mass Index (BMI) 30.8 Intake & Output: Intake and Output for Last 24 Hours 11/01/23 11/02/23 11/03/23 23:59 23:59 23:59 Intake Total 840 / 840 890 / 890 200 / 200 Output Total 4950 / 5450 2950 / 2950 525 / 525 Balance -4110 / -4610 -2060 / -2060 -325 / -325 Lab / Micro Data 11/03/23 02:15 11/03/23 02:15 Labs: Laboratory Results - last 24 hr 11/02/23 12:04: POC Glucose 358 H 11/02/23 19:49: Troponin I High Sens 30 11/02/23 21:58: Troponin I High Sens 28 11/03/23 02:15: WBC 11.5 H, RBC 2.82 L, Hgb 8.7 L, Hct 27.9 L, MCV 98.9 H, MCH 30.9, MCHC 31.2 L, RDW Std Deviation 58.4 H, RDW Coeff of Karen 16.2 H, Plt Count 165, MPV 10.7, Immature Gran % (Auto) 3.000 H, Neut % (Auto) 90.1 H, Lymph % (Auto) 4.1 L, [place] % (Auto) 2.6, Eos % (Auto) 0.0, Baso % (Auto) 0.2, Absolute Neuts (auto) 10.4 H, Absolute Lymphs (auto) 0.47 L, Nucleated RBC % 0.2, Differential Comment SCANNED, Sodium 142, Potassium 3.9, Chloride 106, Carbon Dioxide 29.0, Anion Gap 7, BUN 54 H, Creatinine 2.23 H, Estim Creat Clear Calc 32.13, Est GFR (MDRD) Af Amer 38 L, Est GFR (MDRD) Non-Af 31 L, BUN/Creatinine Ratio 24.2 H, Glucose 219 H, Calcium 8.5, Troponin I High Sens 31, Triglycerides 44, Cholesterol 176, LDL Cholesterol 83, VLDL Cholesterol 9, HDL Cholesterol 84 Micro: Microbiology 11/01/23 04:45 Sputum, Expectorated/Coughed Gram Stain - Final 11/01/23 04:45 Sputum, Expectorated/Coughed Respiratory Culture - Prelimin shalom Presumptive C albicans 10/31/23 19:30 Mucosa - Nasopharyngeal Respiratory Panel (PCR) - Final 10/31/23 14:27 Mucosa - Nose SARS-CoV-2, Influenza & RSV (PCR) - Final Radiography Diagnostic Testing: Radiology Impression Brain CT 11/02/23 12:10 IMPRESSION: Chronic involutional changes of the brain. Electronically Signed: James Pérez MD at 12:29 EST , ADDENDUM: 11/02/23 1244 IMPRESSION: Chronic involutional changes of the brain. N.B. : The above Results were Read Back by James Pérez MD to Spencer Franklin and understanding confirmed on 11/02/2023 12:37:49 (ET). Electronically Signed: James Pérez MD at 12:29 EST , Head/Neck CTA 11/02/23 12:18 IMPRESSION: Nonstenotic calcific plaques at the origin of the right and left internal carotid arteries causing less than 50%. Electronically Signed: James Pérez MD at 13:10 EST , ADDENDUM: 11/02/23 1324 IMPRESSION: Nonstenotic calcific plaques at the origin of the right and left internal carotid arteries causing less than 50%. N.B. : The above Results were Read Back by James Pérez MD to Spencer Franklin MD, and understanding confirmed on 11/02/2023 13:17:18 (ET). Electronically Signed: James Pérez MD at 13:10 EST , Physical Exam Narrative GENERAL: cooperative HEENT: Atraumatic; normocephalic EYES; Anicteric, Normal Conjunctiva NECK; supple, normal thyroid, RESPIRATORY: Diminished to auscultation CARDIOVASCULAR: Regular S1 S2, GI: soft, normoactive bowel sounds, : No Renal angle tenderness; EXTREMITIES: edema, no clubbing, MUSCULOSKELETAL: no muscle wasting NEURO: Awake; no lateralizing signs. SKIN: No Rash PSYCH; Flat affect Assessment & Plan Assessment/Plan (1) COPD exacerbation: PLAN: Plan Patient is a 73-year-old gentleman recently admitted for acute kidney injury management and discharged home presented back to the emergency department with progressive shortness of breath. An assessment of acute congestive heart failure made admitted to a monitored bed for further management 1. Acute on chronic congestive heart failure with preserved ejection fraction ? Patient recent echo cho from 07/11/2023 demonstrated EF of 50%. Admitted to monitored bed managed with strict input and output, daily weight, low-sodium diet as well as diuretic therapy. 2. Acute on chronic respiratory failure ? Secondary to pulmonary fibrosis. Patient is on baseline oxygen 4 L at night, plan is to be assessed for continuous oxygen need with a 6-minute walk 3. Suspected CVA -Patient did develop right-sided subjective weakness as well as facial numbness. Stroke alert was called. Patient underwent emergent head CT as well as CTA. Patient did not have any intracranial bleed no large vessel occlusion. Patient was assessed by [facility] teleneurology patient was deemed to be a candidate for tenecteplase. Subsequently transferred to the intensive care unit with initiation of the tenecteplase acute ischemic protocol. Did obtain verbal consent from the patient explaining the risk and benefits of tenecteplase prior to it administration. 4. Chronic kidney disease stage IV ? With recent hospitalization with [facility]. Patient kidney function back to baseli ne 5. Anemia with recent guaiac positive stool ? Patient scheduled to undergo colonoscopy on 11/02/2023 at [facility] however with patient currently being on admission did discuss with patient and family to reschedule the procedure 6. Essential hypertension ? Patient recently experienced episodes of hypotension. His antihypertensives regimen have been adjusted. Patient blood pressure however remains elevated at this point 7. Dyslipidemia -Patient is on statin therapy, continued at home dose 8. 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 Stable 10. History of testicular cancer -status post Left orchiectomy with subsequent radiation 11. History of previous CVA ? With no residual effect currently remains stable 12. History of trigeminal neuralgia ? Status post ablation 13. History of infrarenal AAA ? Status post repair 14. BPPV ? Symptomatic treatment as needed 15. GERD ? On PPI 16. Class I obesity with BMI of 32 ? Complicating care weight loss advised 17. DVT prophylaxis ? SC heparin ? 11/03/2023 SCDs for now following administration of TNK Time spent in the patient's overall evaluation,decision-making process, review of diagnostic data, adjustment of management, discussion with other providers, nursing nursing and ancillary staff involved in patient's care documentation, 50 minutes minutes Charges/Coding Visit Charges Inpatient E&M: 58636 [facility] Hosp L3
[2023-11-03] MEDS: Isosorbide Mononitrate 30 MG Tablet PO (08:41)
[2023-11-03] MEDS: amLODIPine 10 MG Tablet PO (08:41)
[2023-11-03] MEDS: Gabapentin 400 MG Capsule PO ×2 (08:42→20:05)
[2023-11-03] MEDS: Furosemide 40 MG/4 ML Vial IV (08:42)
[2023-11-03] MEDS: Pantoprazole Sodium 40 MG Tablet PO (08:42)
[2023-11-03] MEDS: Carvedilol 25 MG Tablet PO ×2 (08:42→20:05)
--- NOTE | 2023-11-03 15:42 | EX.PCM.CON.G ---
HPI Consult Data Date of Consult: 11/03/23 HPI Narrative Reason for Consultation: Anemia HPI Narrative: INNA AHMADI, is a 73 M who presents with shortness of breath. He has a past medical history of CHF, nonischemic cardiomyopathy, hypertension, pulmonary fibrosis, COPD presenting with dyspnea. He states that dyspnea started acutely at about 4 PM today. Patient relates he was recently in the hospital for similar symptoms. He states at that time he was told he is allergic to losartan and this was discontinued. He also was taken off of his carvedilol and his Lasix. He states he gained 6 pounds overnight last night. He states he called his primary care physician who told him to come directly to the hospital. He has not taken any Lasix prior to coming. Patient reports he has 1 kidney and he had acute kidney injury when he was recently admitted. Patient has retrosternal chest pain which she states has had for years and is unchanged. He is more short of breath. Denies fever, chills, myalgias. Patient wearing 4 L of oxygen which is his baseline after his previous visit. Patient denies leg swelling or edema. He also has a past medical history of pacemaker placement/AICD, Hx LV apical thrombus, Chronic anemia, Hx AAA infrarenal s/p repair, BPPV, GERD, Hx Trigeminal neuralgia, Hx testicular CA s/p L orchiectomy/radiation, Hx CVA with no residual deficits, Chronic Hypoxic Respiratory Failure secondary to underlying Pulmonary Fibrosis and COPD (2-4L NC baseline), He had a recent admission 10/29/23-10/30/23 secondary to admission with acute kidney injury superimposed on CKD stage IV with low blood pressure and lightheadedness with symptomatic hypotension as well as anemia with reportedly a recent positive stool guaiac with planned outpatient colonoscopy 11/02/2023 in the [facility] system who now re-presents to the [facility] ED on 10/31/23 with history of onset of significant dyspnea. Workup in the ED included T97.8, heart rate 63, BP 149/85, respiratory rate 22, noted to be 95% on 2 L nasal cannula transiently desaturated to 89% on 2 L previously on 10/30/2023 noted to be 99% on room air-->86% on 2L NC, CBC with WBC 11.6, hemoglobin 9.2, MCV 101.4, platelet 173 with left shift, CMP with chloride 108, BUN/creatinine 41/2.08, glucose 108, AST/ALT 56/68, troponin 39, BNP 671.1, chest x-ray with stable cardiomegaly with pacemaker with prominent central pulmonary arteries and mild diffuse interstitial patterns similar in appearance to previous, SARS/influenza/RSV PCR is all negative. In the ED patient ministered Solu-Medrol 125 mg IV x 1, albuterol DuoNeb therapies as well as BuSpar 5 mg p.o. x PFSH Medical History Abdominal aortic aneurysm (AAA) Aneurysm of infrarenal abdominal aorta Angioedema due to angiotensin converting enzyme inhibitor (LASHONDA-I) Anxiety Anxiety and depression Arthritis Atrial fibrillation Back pain Benign paroxysmal positional vertigo Bradycardia Cancer Chronic abdominal pain Chronic cough Chronic HFrEF (heart failure with reduced ejection fraction) CKD (chronic kidney disease) COPD (chronic obstructive pulmonary disease) Depression Essential hypertension GERD (gastroesophageal reflux disease) Hiatal hernia High cholesterol History of ulceration Hypertension Injury of head and neck Kidney disease Left ventricular apical thrombus Loss of hearing Myocardial infarct, old Non-ischemic cardiomyopathy Overweight (BMI 25.0-29.9) Pacemaker Pulmonary fibrosis Shortness of breath on exertion Smoker Stage 2 moderate COPD by GOLD classification Stroke/cerebrovascular accident Symptomatic bradycardia Testicular cancer TIA (transient ischemic attack) Tobacco abuse Vision loss of left eye Wears dentures Wears glasses Home Medications gabapentin 400 mg capsule 400 mg PO BID NEUROPATHY 04/23/19 [History Last Taken 09/28/22] atorvastatin 10 mg tablet 10 mg PO DAILY CHOLESTEROL 04/27/19 [History Last Taken 09/04/23] mirtazapine 15 mg tablet 15 mg PO QHS DEPRESSION 12/03/19 [History Last Taken 10/31/23] isosorbide mononitrate 30 mg tablet,extended release 24 hr 30 mg PO DAILY SHORTNESS OF BREATH 12/24/22 [History Last Taken 10/31/23] buspirone 5 mg tablet 5 mg PO TID ANXIETY 05/11/23 [History Last Taken Unknown] aspirin 81 mg chewable tablet 81 mg PO BREAKFAST BLOOD THINNER #0 tabs 05/12/23 [Rx Last Taken 09/05/23] Oxygen 2 LPM on extertion #1 ea 06/29/23 [Rx Last Taken Unknown] carvedilol 25 mg tablet 25 mg PO BID BLOOD PRESSURE 30 days #60 tabs 09/07/23 [Rx Last Taken Unknown] fluticasone fur. 200 mcg-umeclid 62.5 mcg-vilant 25 mcg inhalat.powder (Trelegy Ellipta) 1 inh inhalation DAILY SHORTNESS OF BREATH/WHEEZING #3 ea 10/04/23 [Rx Last Taken Unknown] amlodipine 10 mg tablet 10 mg PO DAILY BLOOD PRESSURE #30 tabs 10/06/23 [Rx Last Taken Unknown] nitroglycerin 0.4 mg sublingual tablet 0.4 mg sublingual Q5-15M PRN CHEST PAIN #25 tabs 10/06/23 [Rx Last Taken Unknown] omeprazole 40 mg capsule,delayed release 40 mg PO DAILY ACID REFLUX 10/29/23 [History Last Taken 10/31/23] Allergy/AdvReac Type Severity Reaction Status Date / Time LASHONDA Inhibitors Allergy Severe Angioedema Verified 10/31/23 14:03 lisinopril Allergy Severe Angioedema Verified 10/31/23 14:03 ARB-Angiotensin Receptor Allergy Angioedema Verified 10/31/23 14:03 Antagonist Family History Father Cancer bone AAA (abdominal aortic aneurysm) Grandfather AAA (abdominal aortic aneurysm) Uncle AAA (abdominal aortic aneurysm) Surgical History H/O umbilical hernia repair History of AAA (abdominal aortic aneurysm) repair History of arthroscopic knee surgery History of corneal transplant History of foot surgery History of implantable cardiac defibrillator (ICD) History of knee surgery History of left heart catheterization (02/08/20) History of orchiectomy History of surgery on left wrist History of tonsillectomy Implantable cardioverter-defibrillator (ICD) in situ (08/21/20) Trigeminal neuralgia Social History household members: spouse Smoking Status: Former smoker Tobacco: How many years used: 50 how long ago did patient quit smoking: Quit 08/11/23. alcohol intake: never substance use type: does not use caffeine: Yes Type: coffee Number of servings: 5 ROS ROS Narrative 10 systems were reviewed with pertinent positives as noted in the HPI above. Physical Exam Narrative GENERAL: cooperative HEENT: Atraumatic; normocephalic EYES; Anicteric, Normal Conjunctiva NECK; supple, normal thyroid, RESPIRATORY: Diminished to auscultation CARDIOVASCULAR: Regular S1 S2, GI: soft, normoactive bowel sounds, : No Renal angle tenderness; EXTREMITIES: edema, no clubbing, MUSCULOSKELETAL: no muscle wasting NEURO: Awake; no lateralizing signs. SKIN: No Rash PSYCH; Flat affect Lab / Micro Data 11/04/23 03:30 11/04/23 03:30 Labs: Laboratory Results - last 24 hr 11/03/23 02:15: Hemoglobin A1c 6.2 H 11/04/23 03:30: WBC 9.0, RBC 2.81 L, Hgb 8.9 L, Hct 27.7 L, MCV 98.6 H, MCH 31.7, MCHC 32.1, RDW Std Deviation 58.4 H, RDW Coeff of Karen 16.1 H, Plt Count 157, MPV 10.6, Immature Gran % (Auto) 3.100 H, Neut % (Auto) 87.7 H, Lymph % (Auto) 6.0 L, [place] % (Auto) 3.1, Eos % (Auto) 0.0, Baso % (Auto) 0.1, Absolute Neuts (auto) 7.9 H, Absolute Lymphs (auto) 0.54 L, Nucleated RBC % 0, Differential Comment SCANNED, Sodium 142, Potassium 3.7, Chloride 106, Carbon Dioxide 32.0, Anion Gap 4 L, BUN 58 H, Creatinine 2.16 H, Estim Creat Clear Calc 32.39, Est GFR (MDRD) Af Amer 39 L, Est GFR (MDRD) Non-Af 32 L, BUN/Creatinine Ratio 26.9 H, Glucose 214 H, Calcium 7.9 L Assessment & Plan Assessment/Plan (1) COPD exacerbation: (2) Anemia: PLAN: Plan The patient is a 73 y/o M w/ PMHx: PAF, Conduction system disorder s/p pacemaker placement/AICD, Hx LV apical thrombus, Chronic anemia, Hx AAA infrarenal s/p repair, BPPV, GERD, Hx Trigeminal neuralgia, Hx testicular CA s/p L orchiectomy/radiation, Hx CVA with no residual deficits, Chronic Hypoxic Respiratory Failure secondary to underlying Pulmonary Fibrosis and COPD (2-4L NC baseline), with low blood pressure and lightheadedness with symptomatic hypotension as well as anemia. Acute on Chronic Hypoxic Respiratory Failure secondary to Acute Decompensated HFrEF with possible Acute on Chronic COPD Exacerbation complicated to underlying Pulmonary Fibrosis: He is doing a lot better from a cardiac and respiratory standpoint. He has been appropriately diuresed and has been followed by pulmonology and hospitalist service. I do not think he can tolerate a prep at this time due to some volume of distribution issues that experience at this time secondary to COPD exacerbation and mild CHF exacerbation. Therefore we will undergo an upper endoscopy to evaluate his upper GI tract. He was explained alternatives, risk, benefits include not withstanding bleeding, infection, sepsis, perforation, need for emergent and . He will have an ASA of 3.. Charges/Coding Visit Charges Inpatient E&M: 11404 Init Hosp L3
[2023-11-03 16:34] LABS: Hemoglobin A1c 6.2 % (3.8-5.6)
[2023-11-03] MEDS: Mirtazapine 15 MG Tablet PO (20:05)
[2023-11-03] MEDS: Atorvastatin Calcium 80 MG Tablet PO (20:05)
[2023-11-03] MEDS: DiphenhydrAMINE 50 MG/ML Syringe IV (22:54)
--- NOTE | 2023-11-03 23:08 | STROKE.CONS ---
Assessment and Plan: Stroke Assessment/Plan INNA AHMADI is a 73 M with a history of HTN, HLD, CHF, afib not on AC who had an acute R hemibody weakness and sensory loss. He received TNK and has improved. MRI did not show any infarct. However, given his extensive risk factors, I would be more convinced this is an MRI negative stroke. Regardless, the patient should be started on anticoagulation as soon as felt to be safe from a bleeding perspective as he is at high risk for future stroke. I would recommend GI evaluation as an inpatient to discern the risk of GI bleeding. From a stroke perspective, he has had his MRI scan at 24 hours post TNK and it did not show any hemorrhage so it is safe to start anticoagulation with preferablly eliquis. Otherwise he should have a blood pressure goal of 120/80, Hba1c<7, LDL <70. He already had a TTE recently which was unremarkable and he did not have any significant stenosis on his CTA. He does not require any further stroke testing. He will need PT/OT evaluation. HPI Consult Data Date of Consult: 11/03/23 HPI Narrative HPI Narrative: 73 yo M w PMH of trigeminal neuralgia, HLD, HTN, CKD, atrial fibrillation not on AC, CHF admitted for a CHF exacerbation on 10/29. Yesterday at noon, he started having numbness of the R face, arm, leg. Also had weakness in R arm and R leg. ?He received TNK at approx 1pm. He feel better today. Leg/arm feel stronger. Still has residual numbness. The patient has known atrial fibrillation but has not been on anticoagulation due to asymptomatic anemia. He has not required any blood transfusions and no gross bleeding. Had a positive guaiac and is scheduled for an outpatient colonoscopy. [facility] Medical History Abdominal aortic aneurysm (AAA) Aneurysm of infrarenal abdominal aorta Angioedema due to angiotensin converting enzyme inhibitor (LASHONDA-I) Anxiety Anxiety and depression Arthritis Atrial fibrillation Back pain Benign paroxysmal positional vertigo Bradycardia Cancer Chronic abdominal pain Chronic cough Chronic HFrEF (heart failure with reduced ejection fraction) CKD (chronic kidney disease) COPD (chronic obstructive pulmonary disease) Depression Essential hypertension GERD (gastroesophageal reflux disease) Hiatal hernia High cholesterol History of ulceration Hypertension Injury of head and neck Kidney disease Left ventricular apical thrombus Loss of hearing Myocardial infarct, old Non-ischemic cardiomyopathy Overweight (BMI 25.0-29.9) Pacemaker Pulmonary fibrosis Shortness of breath on exertion Smoker Stage 2 moderate COPD by GOLD classification Stroke/cerebrovascular accident Symptomatic bradycardia Testicular cancer TIA (transient ischemic attack) Tobacco abuse Vision loss of left eye Wears dentures Wears glasses Home Medications gabapentin 400 mg capsule 400 mg PO BID NEUROPATHY 04/23/19 [History Last Taken 09/28/22] atorvastatin 10 mg tablet 10 mg PO DAILY CHOLESTEROL 04/27/19 [History Last Taken 09/04/23] mirtazapine 15 mg tablet 15 mg PO QHS DEPRESSION 12/03/19 [History Last Taken 10/31/23] isosorbide mononitrate 30 mg tablet,extended release 24 hr 30 mg PO DAILY SHORTNESS OF BREATH 12/24/22 [History Last Taken 10/31/23] buspirone 5 mg tablet 5 mg PO TID ANXIETY 05/11/23 [History Last Taken Unknown] aspirin 81 mg chewable tablet 81 mg PO BREAKFAST BLOOD THINNER #0 tabs 05/12/23 [Rx Last Taken 09/05/23] Oxygen 2 LPM on extertion #1 ea 06/29/23 [Rx Last Taken Unknown] carvedilol 25 mg tablet 25 mg PO BID BLOOD PRESSURE 30 days #60 tabs 09/07/23 [Rx Last Taken Unknown] fluticasone fur. 200 mcg-umeclid 62.5 mcg-vilant 25 mcg inhalat.powder (Trelegy Ellipta) 1 inh inhalation DAILY SHORTNESS OF BREATH/WHEEZING #3 ea 10/04/23 [Rx Last Taken Unknown] amlodipine 10 mg tablet 10 mg PO DAILY BLOOD PRESSURE #30 tabs 10/06/23 [Rx Last Taken Unknown] nitroglycerin 0.4 mg sublingual tablet 0.4 mg sublingual Q5-15M PRN CHEST PAIN #25 tabs 10/06/23 [Rx Last Taken Unknown] omeprazole 40 mg capsule,delayed release 40 mg PO DAILY ACID REFLUX 10/29/23 [History Last Taken 10/31/23] Allergy/AdvReac Type Severity Reaction Status Date / Time LASHONDA Inhibitors Allergy Severe Angioedema Verified 10/31/23 14:03 lisinopril Allergy Severe Angioedema Verified 10/31/23 14:03 ARB-Angiotensin Receptor Allergy Angioedema Verified 10/31/23 14:03 Antagonist Family History Father Cancer bone AAA (abdominal aortic aneurysm) Grandfather AAA (abdominal aortic aneurysm) Uncle AAA (abdominal aortic aneurysm) Surgical History H/O umbilical hernia repair History of AAA (abdominal aortic aneurysm) repair History of arthroscopic knee surgery History of corneal transplant History of foot surgery History of implantable cardiac defibrillator (ICD) History of knee surgery History of left heart catheterization (02/08/20) History of orchiectomy History of surgery on left wrist History of tonsillectomy Implantable cardioverter-defibrillator (ICD) in situ (08/21/20) Trigeminal neuralgia Social History household members: spouse Smoking Status: Former smoker Tobacco: How many years used: 50 how long ago did patient quit smoking: Quit 08/11/23. alcohol intake: never substance use type: does not use caffeine: Yes Type: coffee Number of servings: 5 Physical Exam Narrative MS- Awake, alert, oriented to person/place/time, attentive, able to name/repeat/follow commands. No dysarthria. No aphasia. No neglect CN-VFF, EOMI, no gaze deviation, no facial weakness. Nml facial sensation. M- RUE 3/5 strength with drift 3/5, LUE 5/5, RLE 3/5 strength with drift. LLE 5/5. S-decreased sensation on RUE and RLE to LT C- No appendicular ataxia Lab / Micro Data 11/03/23 02:15 11/03/23 02:15 Labs: Laboratory Results - last 24 hr 11/03/23 02:15: WBC 11.5 H, RBC 2.82 L, Hgb 8.7 L, Hct 27.9 L, MCV 98.9 H, MCH 30.9, MCHC 31.2 L, RDW Std Deviation 58.4 H, RDW Coeff of Karen 16.2 H, Plt Count 165, MPV 10.7, Immature Gran % (Auto) 3.000 H, Neut % (Auto) 90.1 H, Lymph % (Auto) 4.1 L, [place] % (Auto) 2.6, Eos % (Auto) 0.0, Baso % (Auto) 0.2, Absolute Neuts (auto) 10.4 H, Absolute Lymphs (auto) 0.47 L, Nucleated RBC % 0.2, Differential Comment SCANNED, Sodium 142, Potassium 3.9, Chloride 106, Carbon Dioxide 29.0, Anion Gap 7, BUN 54 H, Creatinine 2.23 H, Estim Creat Clear Calc 32.13, Est GFR (MDRD) Af Amer 38 L, Est GFR (MDRD) Non-Af 31 L, BUN/Creatinine Ratio 24.2 H, Glucose 219 H, Hemoglobin A1c 6.2 H, Calcium 8.5, Troponin I High Sens 31, Triglycerides 44, Cholesterol 176, LDL Cholesterol 83, VLDL Cholesterol 9, HDL Cholesterol 84 Micro: Microbiology 11/01/23 04:45 Sputum, Expectorated/Coughed Gram Stain - Final 11/01/23 04:45 Sputum, Expectorated/Coughed Respiratory Culture - Final Presumptive C albicans Imagaing Radiology Impression Brain MRI 11/02/23 12:51 IMPRESSION: 1. No MRI evidence of acute or subacute ischemic infarct or acute intracranial abnormality. 2. Chronic white matter ischemic changes in the forceps major of both cerebral hemispheres. 3. No interval change when compared to 09/06/2023. Electronically Signed: Bart Cooney MD at 13:07 EST , Active Medications Active Medications Active Medications: Current Medications Generic Name Dose Route Start Last Admin Trade Name Freq PRN Reason Stop Dose Admin Acetaminophen 650 mg 11/02/23 12:51 Acetaminophen 325 Mg Tablet PO Q4H PRN PRN Pain 1-10 or Fever Al Hydroxide/Mg Hydroxide 30 ml 10/31/23 19:13 Mag Hydrox/Al Hydrox/Simeth 30 Ml Udc PO Q6H PRN PRN Gastric Burning Albuterol Sulfate 2.5 mg 10/31/23 19:13 11/01/23 04:10 Albuterol 2.5 Mg/3 Ml Vial.Neb. INHALATION 2.5 mg Q2H PRN PRN Administration Dyspnea, wheezing Albuterol/Ipratropium 3 ml 10/31/23 19:13 11/03/23 15:53 Ipratropium/Albuterol Sulfate 3 Ml Ampul.Neb INHALATION 3 ml Q4HWA.RT MILAGRO Administration Amlodipine Besylate 10 mg 11/01/23 10:00 11/03/23 08:41 Amlodipine 10 Mg Tablet PO 10 mg DAILY MILAGRO Administration Protocol Atorvastatin Calcium 80 mg 11/02/23 22:00 11/03/23 20:05 Atorvastatin Calcium 80 Mg Tablet PO 80 mg QHS MILAGRO Administration Buspirone HCl 5 mg 11/01/23 18:00 11/03/23 20:05 Buspirone 5 Mg Tablet PO 5 mg TID MILAGRO Administration Carvedilol 25 mg 10/31/23 22:00 11/03/23 20:05 Carvedilol 25 Mg Tablet PO 25 mg BID MILAGRO Administration Protocol Furosemide 40 mg 11/01/23 10:00 11/03/23 08:42 Furosemide 40 Mg/4 Ml Vial IV 40 mg DAILY MILAGRO Administration Protocol Gabapentin 400 mg 10/31/23 22:00 11/03/23 20:05 Gabapentin 400 Mg Capsule PO 400 mg BID MILAGRO Administration Guaifenesin 20 ml 10/31/23 19:13 Guaifenesin 10 Ml Udc (200mg/10ml) PO Q4H PRN PRN COUGH Hydralazine HCl 10 mg 10/31/23 19:13 Hydralazine 20 Mg/Ml Vial IV Q4H PRN PRN SBP > 160 Protocol Hydralazine HCl 50 mg 11/01/23 14:00 11/03/23 20:05 Hydralazine 50 Mg Tablet PO 50 mg TID MILAGRO Administration Protocol Hydralazine HCl 5 mg 11/02/23 12:51 Hydralazine 20 Mg/Ml Vial IV Q30M PRN to maintain BP goals Sodium Chloride 250 mls @ 15 mls/hr 10/31/23 19:34 IV .[id number] PRN Additional IVPB Infusion Sodium Chloride 250 mls @ 15 mls/hr 10/31/23 19:34 IV .[id number] PRN Saline Flush Nicardipine/Sodium Chloride 20 mg in 200 mls @ 50 mls/hr 11/02/23 12:51 Cardene-Db 20 Mg/200 Ml Soln CONT INF Q4H PRN See Instructions Protocol 5 MG/HR Famotidine 20 mg/ Sodium 10 mls @ 300 mls/hr 11/02/23 12:51 Chloride IV X1 PRN Allergic Reaction Isosorbide Mononitrate 30 mg 11/01/23 10:00 11/03/23 08:41 Isosorbide Mononitrate 30 Mg Tablet PO 30 mg DAILY MILAGRO Administration Protocol Labetalol HCl 20 mg 11/02/23 12:51 Labetalol (Prefilled) 20 Mg/4 Ml IV X1 PRN BP Goals Labetalol HCl 10 - 20 mg 11/02/23 12:51 Labetalol (Prefilled) 20 Mg/4 Ml IV Q10M PRN PRN to Maintain BP Goals Melatonin 3 mg 10/31/23 19:13 Melatonin 3 Mg Tablet PO QHS PRN PRN INSOMNIA Methylprednisolone 40 mg 10/31/23 22:00 11/03/23 20:05 Methylprednisolone 40 Mg/Ml Vial IV 40 mg Q8 MILAGRO Administration Methylprednisolone 125 mg 11/02/23 12:51 Methylprednisolone 125 Mg/2 Ml Vial IV X1 PRN Allergic Reaction Mirtazapine 15 mg 10/31/23 22:00 11/03/23 20:05 Mirtazapine 15 Mg Tablet PO 15 mg QHS MILAGRO Administration Nitroglycerin 0.4 mg 10/31/23 20:13 Nitroglycerin (Inpatient Use) 0.4 Mg Tab.Subl SL Q5M PRN CARDIAC/CHEST PAIN Ondansetron HCl 4 mg 10/31/23 19:13 Ondansetron 4 Mg/2 Ml Vial IV Q8H PRN PRN NAUSEA/VOMITING Pantoprazole Sodium 40 mg 11/01/23 10:00 11/03/23 08:42 Pantoprazole Sodium 40 Mg Tablet PO 40 mg DAILY MILAGRO Administration Prochlorperazine Edisylate 5 mg 10/31/23 19:13 Prochlorperazine 10 Mg/2 Ml Vial IV Q4H PRN PRN Breakthrough Nausea/Vomiting Senna/Docusate Sodium 2 tablet 10/31/23 19:13 11/01/23 20:58 Senna/Docusate Sodium 1 Tablet PO 2 tablet BID PRN PRN Administration Constipation Sodium Chloride 10 - 40 ml 10/31/23 19:34 11/03/23 05:03 0.9% Saline Lock 10 Ml Syringe IV 10 ml UD PRN Administration SALINE FLUSH Sodium Chloride 10 ml 11/02/23 12:51 11/02/23 12:59 0.9% Saline Lock 10 Ml Syringe IV 10 ml UD PRN Administration Before/After Tenecteplase Administration
[2023-11-04] VITALS (22 sets, daily range): BP systolic 134–168; BP diastolic 50–74; PULSE 54–82; RESP 12–20; TEMP 36.3–36.8; O2SAT 93–100; BMI 30.9
--- NOTE | 2023-11-04 | ESO_PTH ---
PATHOLOGY RESULTS PATIENT: INNA AHMADI LOC: [facility] U#:[id number] AGE/SX: 73/M ROOM: ICU04 RE10/31/[address]: Dr. Spencer Franklin MD : 1950 BED: 1 DIS: 11/05/2023 SPEC #: [id number] RECD: 11/07/23 07:33 STATUS: PACHECO REQ #: [id number] SHELDON: 11/04/23 00:[address]: Hitesh Castro DEPT: SURGICAL PATHOLOGY RECD BY: Lexi Rivera ENTERED: 11/07/23 07:34 SP TYPE: ESOPH BX OTHR DR: MD Dr. Jayde He MD Dr. Allison Jordan, DO Dr. Autumn L White, MD Dr. Alicia Zha, MD Dr. Deepak Gulati, MD Dr. David Kittoe, MD Dr. Hera Kamdar, MD Dr. Jan Bittar, MD Dr. James Burke, MD Dr. Matthew Gusler, MD Dr. Maryam Mian, MD Dr. Mohamed Ridha, MD Dr. Mhd Ezzat Zaghlouleh, MD Dr. Peter Robinson, MD Dr. Sushil Lakhani, MD Dr. 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 See comment. SJ:cole 11/08/2023 COMMENT Special stain for fungi with matched control is used in the evaluation of the specimen. MICROSCOPIC DESCRIPTION Slides are reviewed. GROSS DESCRIPTION Received in fixative is one container labeled with the patient's name and designated random esophagus. The specimen consists of two pieces of sorto soft tissue measuring 0.5 x 0.5 x 0.1 cm. The specimen is totally submitted in one cassette. / DELTA:cole 11/07/2023 TC:3 CPT: 60916, 58727
[2023-11-04 03:38] LABS: Absolute Lymphocyte Count 0.54 X10^3/uL (0.83-4.51); Absolute Neutrophil Count 7.9 X10^3/uL (2.0-7.7); Basophil# 0.01 X10^3/uL; Basophil% 0.1 % (0-1); Hematocrit 27.7 % (40-54); Hemoglobin 8.9 g/dL (13.0-16.5); Lymphocyte # 0.54 X10^3/ul (0.83-4.51); Mean Corp Hgb Conc 32.1 g/dL (32-36); Mean Corpuscular Hgb 31.7 pg (27.0-32.0); Mean Corpuscular Volume 98.6 fL (80-94); Mean Platelet Vol. 10.6 fl (6.2-12.0); Monocyte# 0.28 X10^3/uL; Monocyte% 3.1 % (0-10); NRBC Flagged by Analyzer 0 % (0-5); Neutrophil % 87.7 % (47-70); POSITIVE DIFFERENTIAL YES; Platelet Count 157 K/mm3 (150-450); RBC Distribution Width CV 16.1 % (11.6-14.6); RBC Distribution Width SD 58.4 fl (35.1-43.9); Red Blood Count 2.81 M/mm3 (4.6-6.2)
[2023-11-04 03:54] LABS: Anion Gap 4 (5-15); BUN 58 mg/dL (7-18); BUN/Creat Ratio 26.9 RATIO (10-20); Calcium,Total 7.9 mg/dL (8.5-10.1); Chloride 106 mmol/L (98-107); Creatinine, Serum 2.16 mg/dL (0.70-1.30); EST Glomerular Filtration Rate 32 mL/min (>60); Est Glom Filt Rate - Afr Amer 39 mL/min (>60); Estimated Creatinine Clearance 32.39 ml/min; Glucose 214 mg/dL (74-106); Potassium 3.7 mmol/L (3.5-5.1); Sodium Level 142 mmol/L (136-145)
[2023-11-04 04:10] LABS: Differential Indicated SCAN CRITERIA MET
[2023-11-04 04:32] LABS: Differential Comment SCANNED
[2023-11-04] MEDS: hydrALAZINE 50 MG Tablet PO ×3 (05:28→20:20)
[2023-11-04] MEDS: busPIRone 5 MG Tablet PO ×3 (05:28→20:20)
--- NOTE | 2023-11-04 06:49 | PCM.PN.INT ---
Assessment & Plan Assessment/Plan (1) CHF exacerbation: PLAN: Plan RECOMMENDATIONS: 1. Continue to wean oxygen as tolerated. 2. Diuresis as tolerated by hemodynamics and renal function. 3. Continue scheduled bronchodilators. 4. Okay to transition from IV Solu-Medrol to prednisone 40 mg daily. Plan for a 5-day burst at discharge. 5. Endoscopic evaluation per GI. 6. Perform walking oximetry study prior to consideration for discharge home. 7. Follow-up with Dr. Mcgill in the pulmonary medicine clinic in November, as scheduled. 8. Will sign off from a critical care perspective. Please call with any additional questions. IMPRESSIONS: 1. CVA status post tenecteplase MRI brain was unremarkable. Additional recommendations per neurology. PT/OT to work with the patient. 2. Chronic hypoxemic respiratory failure/COPD The patient is currently followed by Dr. Mcgill on an outpatient pulmonary basis. He has known advanced age COPD and at 2 L/min baseline oxygen requirement. I do suspect that his presenting symptoms were likely a consequence of decompensated heart failure. Plan to continue scheduled bronchodilators as ordered. Okay to transition from IV Solu-Medrol to prednisone 40 mg daily with plans for a 5-day burst at discharge. Perform walking oximetry study prior to discharge home. Follow-up with Dr. Mcgill in the pulmonary medicine clinic in November as scheduled. 3. Decompensated congestive heart failure Continue management per hospitalist with IV diuretic therapy. 4. History of tobacco dependency/chronic kidney disease/anemia/hypertension/hyperlipidemia Complicates care, management, recovery and prognosis. Continue home medications as indicated. GI tentatively planning for endoscopic evaluation prior to discharge home. This note was generated with [employer] dictation software. It may contain incorrect words, spelling, and punctuation that were not noted in checking the note before signing. Subjective Subjective The patient was seen and examined at the bedside this morning. Events from the last 24 hours have been reviewed. The patient is currently afebrile, hemodynamically stable and maintaining appropriate oxygen saturations on 1 L/min via nasal cannula. No overnight issues were identified by the nursing staff. Brain MRI demonstrated no acute or subacute ischemic infarct. Objective Data Objective Data The patient's most recent lab work, culture data and imaging studies have all been personally reviewed. Vital Signs: Vital Signs Temp Pulse Resp BP Pulse Ox O2 Del Method O2 Flow Rate 98 F 54 L 14 141/55 H 94 Nasal Cannula 1 11/04/23 04:00 11/04/23 06:00 11/04/23 06:00 11/04/23 06:00 11/04/23 06:00 11/04/23 06:00 11/04/23 06:00 FiO2 35 11/02/23 04:26 Oxygen Flow Rate (L/min) [ 2 AMBULATING with Oxygen #1] Oxygen Flow Rate (L/min) 1 Oxygen Delivery Method Nasal Cannula Weight: 191 lb 5.78 oz Body Mass Index (BMI) 30.9 Intake & Output: Intake and Output for Last 24 Hours 11/02/23 11/03/23 11/04/23 23:59 23:59 23:59 Intake Total 890 / 890 790 / 790 Output Total 2950 / 2950 2700 / 2700 Balance -0 / -2059 -1909 / -1909 Lab / Micro Data Attestation: I reviewed the patient's lab results. 11/04/23 03:30 11/04/23 03:30 Labs: Laboratory Results - last 24 hr 11/03/23 02:15: Hemoglobin A1c 6.2 H 11/04/23 03:30: WBC 9.0, RBC 2.81 L, Hgb 8.9 L, Hct 27.7 L, MCV 98.6 H, MCH 31.7, MCHC 32.1, RDW Std Deviation 58.4 H, RDW Coeff of Karen 16.1 H, Plt Count 157, MPV 10.6, Immature Gran % (Auto) 3.100 H, Neut % (Auto) 87.7 H, Lymph % (Auto) 6.0 L, [place] % (Auto) 3.1, Eos % (Auto) 0.0, Baso % (Auto) 0.1, Absolute Neuts (auto) 7.9 H, Absolute Lymphs (auto) 0.54 L, Nucleated RBC % 0, Differential Comment SCANNED, Sodium 142, Potassium 3.7, Chloride 106, Carbon Dioxide 32.0, Anion Gap 4 L, BUN 58 H, Creatinine 2.16 H, Estim Creat Clear Calc 32.39, Est GFR (MDRD) Af Amer 39 L, Est GFR (MDRD) Non-Af 32 L, BUN/Creatinine Ratio 26.9 H, Glucose 214 H, Calcium 7.9 L Micro: Microbiology 11/01/23 04:45 Sputum, Expectorated/Coughed Gram Stain - Final 11/01/23 04:45 Sputum, Expectorated/Coughed Respiratory Culture - Final Presumptive C albicans 10/31/23 19:30 Mucosa - Nasopharyngeal Respiratory Panel (PCR) - Final 10/31/23 14:27 Mucosa - Nose SARS-CoV-2, Influenza & RSV (PCR) - Final Radiography Diagnostic Testing: Radiology Impression Brain MRI 11/02/23 12:51 IMPRESSION: 1. No MRI evidence of acute or subacute ischemic infarct or acute intracranial abnormality. 2. Chronic white matter ischemic changes in the forceps major of both cerebral hemispheres. 3. No interval change when compared to 09/06/2023. Electronically Signed: Bart Cooney MD at 13:07 EST , Physical Exam Const alert and no apparent distress General Appearance: cooperative HEENT normocephalic and head/scalp atraumatic Eyes PERRL, EOMs intact bilaterally and conjunctivae normal Neck supple General: trachea midline Chest inspection of chest normal Resp normal respiratory effort Auscultation: diminished lung sounds; Negative for rales, rhonchi or wheezes Cardio regular rate and regular rhythm GI normal to inspection, nondistended, normoactive bowel sounds Extremity no clubbing, cyanosis or edema Skin no rashes or lesions noted Neuro CN's II-XII intact bilaterally and moves all extremities Psych Mood & Affect: flat affect Charges/Coding Visit Charges Inpatient E&M: 24049 Subs Hosp L2
[2023-11-04] MEDS: Ipratropium/Albuterol Sulfate 3 ML AMPUL.NEB INHALATION ×3 (07:11→19:17)
--- NOTE | 2023-11-04 08:14 | PN.HOSP_ITS ---
Reason for Visit Reason for Visit: Diagnoses Heart failure, unspecified (10/31/23) Chronic obstructive pulmonary disease with (acute) exacerbation (10/31/23) Subjective Subjective [facility] not patient had an MRI negative for CVA. Given patient underlying history of A-fib plan will be for patient to be started on systemic anticoagulation. Of note patient was being worked up for anemia with planned outpatient endoscopic evaluation consult subsequently placed to Dr. Castro with GI case discussed with team. Plan is for patient to have endoscopic evaluation in the hospital prior to discharge Objective Data Objective Data Vital Signs: Vital Signs Temp Pulse Resp BP Pulse Ox O2 Del Method O2 Flow Rate 97.4 F L 60 16 160/74 H 94 Nasal Cannula 1 11/04/23 08:00 11/04/23 08:00 11/04/23 08:00 11/04/23 08:00 11/04/23 08:00 11/04/23 08:00 11/04/23 08:00 FiO2 35 11/02/23 04:26 Oxygen Flow Rate (L/min) [ 2 AMBULATING with Oxygen #1] Oxygen Flow Rate (L/min) 1 Oxygen Delivery Method Nasal Cannula Weight: 86.8 kg Body Mass Index (BMI) 30.9 Intake & Output: Intake and Output for Last 24 Hours 11/02/23 11/03/23 11/04/23 23:59 23:59 23:59 Intake Total 890 / 890 790 / 790 Output Total 2950 / 2950 2700 / 2700 Balance -0 / -2060 -1910 / -1910 Lab / Micro Data 11/04/23 03:30 11/04/23 03:30 Labs: Laboratory Results - last 24 hr 11/03/23 02:15: Hemoglobin A1c 6.2 H 11/04/23 03:30: WBC 9.0, RBC 2.81 L, Hgb 8.9 L, Hct 27.7 L, MCV 98.6 H, MCH 31.7, MCHC 32.1, RDW Std Deviation 58.4 H, RDW Coeff of Karen 16.1 H, Plt Count 157, MPV 10.6, Immature Gran % (Auto) 3.100 H, Neut % (Auto) 87.7 H, Lymph % (Auto) 6.0 L, [place] % (Auto) 3.1, Eos % (Auto) 0.0, Baso % (Auto) 0.1, Absolute Neuts (auto) 7.9 H, Absolute Lymphs (auto) 0.54 L, Nucleated RBC % 0, Differential Comment SCANNED, Sodium 142, Potassium 3.7, Chloride 106, Carbon Dioxide 32.0, Anion Gap 4 L, BUN 58 H, Creatinine 2.16 H, Estim Creat Clear Calc 32.39, Est GFR (MDRD) Af Amer 39 L, Est GFR (MDRD) Non-Af 32 L, BUN/Creatinine Ratio 26.9 H, Glucose 214 H, Calcium 7.9 L Micro: Microbiology 11/01/23 04:45 Sputum, Expectorated/Coughed Gram Stain - Final 11/01/23 04:45 Sputum, Expectorated/Coughed Respiratory Culture - Final Presumptive C albicans 10/31/23 19:30 Mucosa - Nasopharyngeal Respiratory Panel (PCR) - Final 10/31/23 14:27 Mucosa - Nose SARS-CoV-2, Influenza & RSV (PCR) - Final Radiography Diagnostic Testing: Radiology Impression Brain MRI 11/02/23 12:51 IMPRESSION: 1. No MRI evidence of acute or subacute ischemic infarct or acute intracranial abnormality. 2. Chronic white matter ischemic changes in the forceps major of both cerebral hemispheres. 3. No interval change when compared to 09/06/2023. Electronically Signed: Bart Cooney MD at 13:07 EST , Physical Exam Narrative GENERAL: cooperative HEENT: Atraumatic; normocephalic EYES; Anicteric, Normal Conjunctiva NECK; supple, normal thyroid, RESPIRATORY: Diminished to auscultation CARDIOVASCULAR: Regular S1 S2, GI: soft, normoactive bowel sounds, : No Renal angle tenderness; EXTREMITIES: edema, no clubbing, MUSCULOSKELETAL: no muscle wasting NEURO: Awake; no lateralizing signs. SKIN: No Rash PSYCH; Flat affect Assessment & Plan Assessment/Plan (1) COPD exacerbation: PLAN: Plan Patient is a 73-year-old gentleman recently admitted for acute kidney injury management and discharged home presented back to the emergency department with progressive shortness of breath. An assessment of acute congestive heart failure made admitted to a monitored bed for further management 1. Acute on chronic congestive heart failure with preserved ejection fraction ? Patient recent echo cho from 07/11/2023 demonstrated EF of 50%. Admitted to monitored bed managed with strict input and output, daily weight, low-sodium diet as well as diuretic therapy. 2. Acute on chronic respiratory failure ? Secondary to pulmonary fibrosis. Patient is on baseline oxygen 4 L at night, plan is to be assessed for continuous oxygen need with a 6-minute walk 3. Suspected CVA -Patient did develop right-sided subjective weakness as well as facial numbness. Stroke alert was called. Patient underwent emergent head CT as well as CTA. Patient did not have any intracranial bleed no large vessel occlusion. [facility] patient was deemed to be a candidate for tenecteplase. Subsequently transferred to the intensive care unit with initiation of the tenecteplase acute ischemic protocol. Did obtain verbal consent from the patient explaining the risk and benefits of tenecteplase prior to it administration. ? [facility] not patient had an MRI negative for CVA. Given patient underlying history of A-fib plan will be for patient to be started on systemic anticoagulation. Of note patient was being worked up for anemia with planned outpatient endoscopic evaluation consult subsequently placed to Dr. Castro with GI case discussed with team. Plan is for patient to have endoscopic evaluation in the hospital prior to discharge 4. Chronic kidney disease stage IV ? With recent hospitalization with [facility]. Patient kidney function back to baseline 5. Anemia with recent guaiac positive stool ? Patient scheduled to undergo colonoscopy on 11/02/2023 at [facility] however with patient currently being on admission did discuss with patient and family to reschedule the procedure ? 11/04/2023 with a need for patient to be started on systemic anticoagulation for his MRI negative CVA and underlying history of A-fib consult was placed to Nancy Cooper for patient to have his endoscopic evaluation in the hospital prior to discharge 6. Essential hypertension ? Patient recently experienced episodes of hypotension. His antihypertensives regimen have been adjusted. Patient blood pressure however remains elevated at this point 7. Dyslipidemia -Patient is on statin therapy, continued at home dose 8. 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 Stable 10. History of testicular cancer -status post Left orchiectomy with subsequent radiation 11. History of previous CVA ? With no residual effect currently remains stable 12. History of trigeminal neuralgia ? Status post ablation 13. History of infrarenal AAA ? Status post repair 14. BPPV ? Symptomatic treatment as needed 15. GERD ? On PPI 16. Class I obesity with BMI of 32 ? Complicating care weight loss advised 17. DVT prophylaxis ? SC heparin ? 11/03/2023 SCDs for now following administration of TNK Time spent in the patient's overall evaluation,decision-making process, review of diagnostic data, adjustment of management, discussion with other providers, nursing nursing and ancillary staff involved in patient's care documentation, 50 minutes minutes Charges/Coding Visit Charges Inpatient E&M: 78684 Subs Hosp L3
[2023-11-04] MEDS: Pantoprazole Sodium 40 MG Tablet PO (09:48)
[2023-11-04] MEDS: amLODIPine 10 MG Tablet PO (09:48)
[2023-11-04] MEDS: Gabapentin 400 MG Capsule PO ×2 (09:48→20:20)
[2023-11-04] MEDS: 0.9% Saline Lock 10 ML Syringe IV (09:49)
[2023-11-04] MEDS: Furosemide 40 MG/4 ML Vial IV (09:49)
[2023-11-04] MEDS: Isosorbide Mononitrate 30 MG Tablet PO (09:49)
[2023-11-04] MEDS: Carvedilol 25 MG Tablet PO ×2 (09:49→20:20)
--- NOTE | 2023-11-04 09:56 | CASEMGMT ---
CHRIST WALKER NOTE: CHRIST CM to room. Pt resting in bed. Discussed therapy and discharge planning/needs. Pt states he was going to OP therapy @ [facility] and plans to resume this upon return home. He declines need for HHC. Pt has home O2 thru [employer] and verifies his can bring in portable o2 tank @ discharge. Pt will need home o2 testing completed to determine if he requires more than 2 l/m w/exertion. Green sheet placed on chart w/instructions re: same. Pt verifies he has a pulse ox @ home. Pt denies having other discharge planning needs or concerns. Yimi COLLIER RN CM
[2023-11-04] MEDS: Lactated Ringers 1,000 ML 15 ML IV (14:47)
--- NOTE | 2023-11-04 16:00 | OP.CCLET_ITS ---
11/04/2023 Christopher Cortez Re : Upper GI endoscopy procedure for Teodoro Wolfe Dear [place] This procedure was performed on Saturday, November 04, 2023. My impressions and recommendations are as follows: Impressions : - Esophageal plaques were found, consistent with candidiasis. Biopsied. - A large amount of food (residue) in the stomach. - Normal duodenal bulb. - Retained food in the duodenum. Recommendations : - [facility]. - Resume previous diet. - Continue present medications. -Fluconazole 200 mg x daily x 7 days -Gastric emptying study My findings are described in the full procedure note, which is enclosed. If I can be of further assistance, please feel free to contact me at . Sincerely, Hitesh Castro, 11/04/2023 3:59:33 PM This report has been signed electronically.
--- NOTE | 2023-11-04 16:00 | OP.EGD_ITS ---
Patient Name: Teodoro Wolfe Procedure Date: 11/04/2023 3:24 PM Date of : 1950 Age: 73 Procedure: Upper GI endoscopy Indications: Iron deficiency anemia Providers: Hitesh Castro DO Medicines: Monitored Anesthesia Care Patient Profile: This is a 73 year old male. Refer to note in patient chart for documentation of history and physical. Patient has symptoms of acute epigastric abdominal pain. Complications: No immediate complications. Procedure: Pre-Anesthesia Assessment: - Prior to the procedure, a History and Physical was performed, and patient medications and allergies were reviewed. The risks and benefits of the procedure and the sedation options and risks were discussed with the patient. All questions were answered and informed consent was obtained. Patient identification and proposed procedure were verified by the physician. Mental Status Examination: normal. Prophylactic Antibiotics: The patient does not require prophylactic antibiotics. Prior Anticoagulants: The patient has taken no anticoagulant or antiplatelet agents. ASA Grade Assessment: III - A patient with severe systemic disease. After reviewing the risks and benefits, the patient was deemed in satisfactory condition to undergo the procedure. The anesthesia plan was to use monitored anesthesia care (MAC). Immediately prior to administration of medications, the patient was re-assessed for adequacy to receive sedatives. The heart rate, respiratory rate, oxygen saturations, blood pressure, adequacy of pulmonary ventilation, and response to care were monitored throughout the procedure. The physical status of the patient was re-assessed after the procedure. After obtaining informed consent, the endoscope was passed under direct vision. Throughout the procedure, the patient's blood pressure, pulse, and oxygen saturations were monitored continuously. The gastroscope was introduced through the mouth, and advanced to the second part of duodenum. The upper GI endoscopy was accomplished without difficulty. The patient tolerated the procedure well. Scope In: 3:53:06 PM Scope Out: 3:55:01 PM Total Procedure Duration Time 0 hours 1 minute 55 seconds Findings: Diffuse, white plaques were found in the upper third of the esophagus, in the middle third of the esophagus and in the lower third of the esophagus. Biopsies were taken with a cold forceps for histology. Verification of patient identification for the specimen was done. A large amount of food (residue) was found in the gastric body. The duodenal bulb was normal. Food (residue) was found in the duodenal bulb. Impression: - Esophageal plaques were found, consistent with candidiasis. Biopsied. - A large amount of food (residue) in the stomach. - Normal duodenal bulb. - Retained food in the duodenum. Recommendation: - Return patient to [facility] for [facility] care. - Resume previous diet. - Continue present medications. -Fluconazole 200 mg x daily x 7 days -Gastric emptying study Procedure Code(s): --- Professional --- 79062, Esophagogastroduodenoscopy, flexible, transoral; with biopsy, single or multiple CPT copyright 2021 [employer]. All rights reserved. The codes documented in this report are preliminary and upon remote coders review may be revised to meet current compliance requirements. Hitesh Castro, 11/04/2023 3:59:33 PM This report has been signed electronically. Number of Addenda: 0 Note Initiated On: 11/04/2023 3:24 PM
[2023-11-04] MEDS: Fluconazole 100 MG Tablet 200 MG PO (16:50)
[2023-11-04] MEDS: Atorvastatin Calcium 80 MG Tablet PO (20:20)
[2023-11-04] MEDS: APIXABAN 5 MG TABLET PO (20:20)
[2023-11-04] MEDS: Mirtazapine 15 MG Tablet PO (20:20)
[2023-11-05 01:40] VITALS: BP 131/55; PULSE 56; RESP 18; TEMP 36.6; O2SAT 92
[2023-11-05] MEDS: busPIRone 5 MG Tablet PO (05:33)
[2023-11-05 05:36] VITALS: BP 148/63; PULSE 60
[2023-11-05] MEDS: hydrALAZINE 50 MG Tablet PO (05:36)
[2023-11-05 05:45] VITALS: BMI 31.2
[2023-11-05 06:57] VITALS: PULSE 55; RESP 18; O2SAT 94
[2023-11-05] MEDS: Ipratropium/Albuterol Sulfate 3 ML AMPUL.NEB INHALATION (06:57)
[2023-11-05 07:40] VITALS: BP 155/63; PULSE 60; RESP 18; TEMP 36.6; O2SAT 92
--- NOTE | 2023-11-05 07:43 | PCM.PN.HOSP ---
Reason for Visit Reason for Visit: Diagnoses Anemia, unspecified (10/31/23) Heart failure, unspecified (10/31/23) Chronic obstructive pulmonary disease with (acute) exacerbation (10/31/23) Subjective Subjective Seen EGD the day prior as below Impressions : - Esophageal plaques were found, consistent with candidiasis. Biopsied. - A large amount of food (residue) in the stomach. - Normal duodenal bulb. - Retained food in the duodenum. Recommendations : - Return patient to [facility] for [facility] care. - Resume previous diet. - Continue present medications. -Fluconazole 200 mg x daily x 7 days -Gastric emptying study. Objective Data Objective Data Vital Signs: Vital Signs Temp Pulse Resp BP Pulse Ox O2 Del Method O2 Flow Rate 97.9 F 55 L 18 148/63 H 94 Nasal Cannula 2 11/05/23 01:40 11/05/23 06:57 11/05/23 06:57 11/05/23 05:36 11/05/23 06:57 11/05/23 06:57 11/05/23 06:57 FiO2 35 11/02/23 04:26 Oxygen Flow Rate (L/min) [ 2 AMBULATING with Oxygen #1] Oxygen Flow Rate (L/min) 2 Oxygen Delivery Method Nasal Cannula Weight: 87.8 kg Body Mass Index (BMI) 31.2 Intake & Output: Intake and Output for Last 24 Hours 11/03/23 11/04/23 11/05/23 23:59 23:59 23:59 Intake Total 790 / 790 561 / 561 Output Total 2700 / 2700 1250 / 1250 825 / 825 Balance -1910 / -1910 -689 / -689 -825 / -825 Lab / Micro Data 11/05/23 08:15 11/04/23 03:30 Micro: Microbiology 11/01/23 04:45 Sputum, Expectorated/Coughed Gram Stain - Final 11/01/23 04:45 Sputum, Expectorated/Coughed Respiratory Culture - Final Presumptive C albicans 10/31/23 19:30 Mucosa - Nasopharyngeal Respiratory Panel (PCR) - Final 10/31/23 14:27 Mucosa - Nose SARS-CoV-2, Influenza & RSV (PCR) - Final Physical Exam Narrative GENERAL: cooperative HEENT: Atraumatic; normocephalic EYES; Anicteric, Normal Conjunctiva NECK; supple, normal thyroid, RESPIRATORY: Diminished to auscultation CARDIOVASCULAR: Regular S1 S2, GI: soft, normoactive bowel sounds, : No Renal angle tenderness; EXTREMITIES: edema, no clubbing, MUSCULOSKELETAL: no muscle wasting NEURO: Awake; no lateralizing signs. SKIN: No Rash PSYCH; Flat affect Assessment & Plan Assessment/Plan (1) COPD exacerbation: PLAN: Plan Patient is a 73-year-old gentleman recently admitted for acute kidney injury management and discharged home presented back to the emergency department with progressive shortness of breath. An assessment of acute congestive heart failure made admitted to a monitored bed for further management 1. Acute on chronic congestive heart failure with preserved ejection fraction ? Patient recent echo cho from 07/11/2023 demonstrated EF of 50%. Admitted to monitored bed managed with strict input and output, daily weight, low-sodium diet as well as diuretic therapy. 2. Acute on chronic respiratory failure ? Secondary to pulmonary fibrosis. Patient is on baseline oxygen 4 L at night, plan is to be assessed for continuous oxygen need with a 6-minute walk 3. Suspected CVA -Patient did develop right-sided subjective weakness as well as facial numbness. Stroke alert was called. Patient underwent emergent head CT as well as CTA. Patient did not have any intracranial bleed no large vessel occlusion. [facility] was deemed to be a [facility] for tenecteplase. Subsequently transferred to the intensive care unit with initiation of the tenecteplase acute ischemic protocol. Did obtain verbal consent from the patient explaining the risk and benefits of tenecteplase prior to it administration. ? [facility] not patient had an MRI negative for CVA. Given patient underlying history of A-fib plan will be for patient to be started on systemic anticoagulation. Of note patient was being worked up for anemia with planned outpatient endoscopic evaluation consult subsequently placed to Dr. Castro with GI case discussed with team. Plan is for patient to have endoscopic evaluation in the hospital prior to discharge planning ?11/05/2023 patient started on apixaban 4. Chronic kidney disease stage IV ? With recent hospitalization with [facility]. Patient kidney function back to baseline 5. Anemia with recent guaiac positive stool ? Patient scheduled to undergo colonoscopy on 11/02/2023 at [facility] however with patient currently being on admission did discuss with patient and family to reschedule the procedure ? 11/04/2023 with a need for patient to be started on systemic anticoagulation for his MRI negative CVA and underlying history of A-fib consult was placed to GI for patient to have his endoscopic evaluation in the hospital prior to discharge 11/05/2023; Impressions : - Esophageal plaques were found, consistent with candidiasis. Biopsied. - A large amount of food (residue) in the stomach. - Normal duodenal bulb. - Retained food in the duodenum. Recommendations : - [facility] patient to [facility] for [facility] care. - Resume previous diet. - Continue present medications. -Fluconazole 200 mg x daily x 7 days -Gastric emptying study -For patient to follow-up with Dr. Castro to complete workup with an outpatient colonoscopy 6. Essential hypertension ? Patient recently experienced episodes of hypotension. His antihypertensives regimen have been adjusted. Patient blood pressure however remains elevated at this point 7. Dyslipidemia -Patient is on statin therapy, continued at home dose 8. 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 Stable 10. History of testicular cancer -status post Left orchiectomy with subsequent radiation 11. History of previous CVA ? With no residual effect currently remains stable 12. History of trigeminal neuralgia ? Status post ablation 13. History of infrarenal AAA ? Status post repair 14. BPPV ? Symptomatic treatment as needed 15. GERD ? On PPI 16. Class I obesity with BMI of 32 ? Complicating care weight loss advised 17. DVT prophylaxis ? SC heparin ? 11/03/2023 SCDs for now following administration of TNK Time spent in the patient's overall evaluation,decision-making process, review of diagnostic data, adjustment of management, discussion with other providers, nursing nursing and ancillary staff involved in patient's care documentation, 35 minutes minutes Charges/Coding Visit Charges Inpatient E&M: 65534 Subs Hosp L2
[2023-11-05 08:25] LABS: Absolute Lymphocyte Count 1.62 X10^3/uL (0.83-4.51); Absolute Neutrophil Count 7.3 X10^3/uL (2.0-7.7); Basophil# 0.04 X10^3/uL; Basophil% 0.4 % (0-1); Eosinophil# 0.06 X10^3/uL; Eosinophils% 0.6 % (0-5); Hematocrit 29.6 % (40-54); Hemoglobin 9.4 g/dL (13.0-16.5); Lymphocyte # 1.62 X10^3/ul (0.83-4.51); Lymphocyte % 15.9 % (19-41); Mean Corp Hgb Conc 31.8 g/dL (32-36); Mean Corpuscular Hgb 31.1 pg (27.0-32.0); Mean Platelet Vol. 10.3 fl (6.2-12.0); Monocyte# 0.85 X10^3/uL; Monocyte% 8.3 % (0-10); NRBC Flagged by Analyzer 0.2 % (0-5); Neutrophil # 7.31 X10^3/uL (2.7-7.7); Neutrophil % 71.7 % (47-70); Platelet Count 161 K/mm3 (150-450); RBC Distribution Width CV 16.3 % (11.6-14.6); RBC Distribution Width SD 57.8 fl (35.1-43.9); Red Blood Count 3.02 M/mm3 (4.6-6.2); White Blood Count 10.2 K/mm3 (4.4-11.0)
[2023-11-05 08:51] LABS: Anion Gap 7 (5-15); BUN 55 mg/dL (7-18); BUN/Creat Ratio 28.1 RATIO (10-20); Calcium,Total 8.3 mg/dL (8.5-10.1); Chloride 105 mmol/L (98-107); Creatinine, Serum 1.96 mg/dL (0.70-1.30); EST Glomerular Filtration Rate 36 mL/min (>60); Est Glom Filt Rate - Afr Amer 44 mL/min (>60); Estimated Creatinine Clearance 35.89 ml/min; Glucose 131 mg/dL (74-106); Magnesium 2.8 mg/dL (1.6-2.6); Potassium 3.6 mmol/L (3.5-5.1); Sodium Level 142 mmol/L (136-145)
--- NOTE | 2023-11-05 08:54 | PCM.DC.SUM ---
Providers Date of Admission: 10/31/23 Date of Discharge: 11/05/23 Primary Care Physician: MELANIE Pulido Consultations 11/02/23 12:51 Consult: Provider Service Representative / Pulmonary Medicine Routine Consulting Provider: Pulmonary Medicine stephie [place] Reason for Consult: stroke for thrombolytic EMERGENT Consult: Yes MD Notified: Yes Date Notified: 11/02/23 Time Notified: 12:38 Method of Notification: Text Consult: Tele-Neurology Routine Consulting Provider: [facility] Reason for Consult: stroke for thrombolytic EMERGENT Consult: No Notified: Yes Date Notified: 11/02/23 Time Notified: 16:48 Method of Notification: Answering Service Nursing Unit Staff Notify [facility] of Tele-Neurology Consult: Yes 11/03/23 15:36 Consult: Gastroenterology Routine Consulting Provider: [facility] Reason for Consult: Anemia; for possible endoscopic evaluation upper and lower EMERGENT Consult: No Notified: Yes Date Notified: 11/03/23 Time Notified: 15:37 Method of Notification: Verbal Reason For Visit: ACUTE ON CHRONIC RF, COPD EXAC, ? HF Diagnosis Discharge Diagnosis (1) COPD exacerbation: Status: Chronic Code(s): J44.1 - Chronic obstructive pulmonary disease with (acute) exacerbation Plan Patient is a 73-year-old gentleman recently admitted for acute kidney injury management and discharged home presented back to the emergency department with progressive shortness of breath. An assessment of acute congestive heart failure made admitted to a monitored bed for further management 1. Acute on chronic congestive heart failure with preserved ejection fraction ? Patient recent echo cho from 1 07/11/2023 demonstrated EF of 50%. Admitted to monitored bed managed with strict input and output, daily weight, low-sodium diet as well as diuretic therapy. 2. Acute on chronic respiratory failure ? Secondary to pulmonary fibrosis. Patient is on baseline oxygen 4 L at night, plan is to be assessed for continuous oxygen need with a 6-minute walk 3. Suspected CVA -Patient did develop right-sided subjective weakness as well as facial numbness. Stroke alert was called. Patient underwent emergent head CT as well as CTA. Patient did not have any intracranial bleed no large vessel occlusion. [facility] deemed to be a candidate for tenecteplase. Subsequently transferred to the intensive care unit with initiation of the tenecteplase acute ischemic protocol. Did obtain verbal consent from the patient explaining the risk and benefits of tenecteplase prior to it administration. ? 11/04/2023ase was discussed with [facility] assessment was not patient had an MRI negative for CVA. Given patient underlying history of A-fib plan will be for patient to be started on systemic anticoagulation. Of note patient was being worked up for anemia with planned outpatient endoscopic evaluation consult subsequently placed to Dr. Castro with GI case discussed with team. Plan is for patient to have endoscopic evaluation in the hospital prior to discharge planning ?11/05/2023 patient started on apixaban 4. Chronic kidney disease stage IV ? With recent hospitalization with [facility]. Patient kidney function back to baseline 5. Anemia with recent guaiac positive stool ? Patient scheduled to undergo colonoscopy on 11/02/2023 at [facility] however with patient currently being on admission did discuss with patient and family to reschedule the procedure ? 11/04/2023 with a need for patient to be started on systemic anticoagulation for his MRI negative CVA and underlying history of A-fib consult was placed to GI for patient to have his endoscopic evaluation in the hospital prior to discharge 11/05/2023; Impressions : - Esophageal plaques were found, consistent with candidiasis. Biopsied. - A large amount of food (residue) in the stomach. - Normal duodenal bulb. - Retained food in the duodenum. Recommendations : - [facility] patient to [facility] for [facility] care. - Resume previous diet. - Continue present medications. -Fluconazole 200 mg x daily x 7 days -Gastric emptying study -For patient to follow-up with Dr. Castro to complete workup with an outpatient colonoscopy 6. Essential hypertension ? Patient recently experienced episodes of hypotension. His antihypertensives regimen have been adjusted. Patient blood pressure however remains elevated at this point 7. Dyslipidemia -Patient is on statin therapy, continued at home dose 8. 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 Stable 10. History of testicular cancer -status post Left orchiectomy with subsequent radiation 11. History of previous CVA ? With no residual effect currently remains stable 12. History of trigeminal neuralgia ? Status post ablation 13. History of infrarenal AAA ? Status post repair 14. BPPV ? Symptomatic treatment as needed 15. GERD ? On PPI 16. Class I obesity with BMI of 32 ? Complicating care weight loss advised 17. DVT prophylaxis ? SC heparin ? 11/03/2023 SCDs for now following administration of TNK Time spent in the patient's overall evaluation,decision-making process, review of diagnostic data, adjustment of management, discussion with other providers, nursing nursing and ancillary staff involved in patient's care documentation, 35 minutes minutes Medications at Discharge Home Medications gabapentin 400 mg capsule 400 mg PO BID NEUROPATHY 04/23/19 mirtazapine 15 mg tablet 15 mg PO QHS DEPRESSION 12/03/19 isosorbide mononitrate 30 mg tablet,extended release 24 hr 30 mg PO DAILY SHORTNESS OF BREATH 12/24/22 buspirone 5 mg tablet 5 mg PO TID ANXIETY 05/11/23 aspirin 81 mg chewable tablet 81 mg PO BREAKFAST BLOOD THINNER #0 tabs 05/12/23 Oxygen 2 LPM on extertion #1 ea 06/29/23 carvedilol 25 mg tablet 25 mg PO BID BLOOD PRESSURE 30 days #60 tabs 09/07/23 fluticasone fur. 200 mcg-umeclid 62.5 mcg-vilant 25 mcg inhalat.powder (Trelegy Ellipta) 1 inh inhalation DAILY SHORTNESS OF BREATH/WHEEZING #3 ea 10/04/23 amlodipine 10 mg tablet 10 mg PO DAILY BLOOD PRESSURE #30 tabs 10/06/23 nitroglycerin 0.4 mg sublingual tablet 0.4 mg sublingual Q5-15M PRN CHEST PAIN #25 tabs 10/06/23 omeprazole 40 mg capsule,delayed release 40 mg PO DAILY ACID REFLUX 10/29/23 apixaban 5 mg tablet (Eliquis) 5 mg PO BID 60 days #120 tabs 11/05/23 atorvastatin 80 mg tablet 80 mg PO QHS 60 days #60 tabs 11/05/23 fluconazole 100 mg tablet 200 mg (2 x 100 mg) PO DAILY 7 days #14 tabs 11/05/23 furosemide 40 mg tablet (Lasix) 40 mg PO DAILY #60 tabs 11/05/23 hydralazine 50 mg tablet 50 mg PO TID 60 days #180 tabs 11/05/23 prednisone 20 mg tablet 40 mg (2 x 20 mg) PO DAILYCM 5 days #10 tabs 11/05/23 Physical Exam Narrative GENERAL: cooperative HEENT: Atraumatic; normocephalic EYES; Anicteric, Normal Conjunctiva NECK; supple, normal thyroid, RESPIRATORY: Diminished to auscultation CARDIOVASCULAR: Regular S1 S2, GI: soft, normoactive bowel sounds, : No Renal angle tenderness; EXTREMITIES: edema, no clubbing, MUSCULOSKELETAL: no muscle wasting NEURO: Awake; no lateralizing signs. SKIN: No Rash PSYCH; Flat affect Weight / BMI Weight Weight: 87.8 kg Body Mass Index (BMI) 31.2 ABG / Lab / Microbiology Data 11/05/23 08:15 11/05/23 08:15 Laboratory: Laboratory Results - last 24 hr 11/05/23 08:15: WBC 10.2, RBC 3.02 L, Hgb 9.4 L, Hct 29.6 L, MCV 98.0 H, MCH 31.1, MCHC 31.8 L, RDW Std Deviation 57.8 H, RDW Coeff of Karen 16.3 H, Plt Count 161, MPV 10.3, Immature Gran % (Auto) 3.100 H, Neut % (Auto) 71.7 H, Lymph % (Auto) 15.9 L, Crawford % (Auto) 8.3, Eos % (Auto) 0.6, Baso % (Auto) 0.4, Absolute Neuts (auto) 7.3, Absolute Lymphs (auto) 1.62, Nucleated RBC % 0.2, Sodium 142, Potassium 3.6, Chloride 105, Carbon Dioxide 30.0, Anion Gap 7, BUN 55 H, Creatinine 1.96 H, Estim Creat Clear Calc 35.89, Est GFR (MDRD) Af Amer 44 L, Est GFR (MDRD) Non-Af 36 L, BUN/Creatinine Ratio 28.1 H, Glucose 131 H, Calcium 8.3 L, Magnesium 2.8 H Microbiology: Microbiology 11/01/23 04:45 Sputum, Expectorated/Coughed Gram Stain - Final 11/01/23 04:45 Sputum, Expectorated/Coughed Respiratory Culture - Final Presumptive C albicans 10/31/23 19:30 Mucosa - Nasopharyngeal Respiratory Panel (PCR) - Final 10/31/23 14:27 Mucosa - Nose SARS-CoV-2, Influenza & RSV (PCR) - Final D/C Instructions Discharge Diet: No restrictions Discharge Activity: Return to Normal Activity Call your doctor if you observe: Fever of 101 or Higher, Shortness of breath, Fainting spells and Chest pain Meaningful Use Info Meaningful Use Diagnoses (Choose all that apply): CHF and Ischemic CVA CHF LASHONDA/ARB ordered at discharge?: No Reason LASHONDA/ARB not ordered?: Worsening renal disease Documented LVEF (%): 50 CVA Therapy Assessed for PT,OT and/or ST?: Yes Ischemic Stroke Antithrombotic order at d/c?: Yes Dx of Atrial fib/flutter?: Yes Anticoagulant at discharge?: Yes Statins at discharge?: Yes Primary Dx Acute Ischemic CVA?: Yes IV thrombolytic ordered during stay?: Yes Discharge Plan Admission Admit Date/Time: 10/31/23 18:13 Attending Provider: Spencer Franklin Primary Care Provider: Christopher Cortez Consulting Providers: Jenni Matthews; Salazar Pickens; Jayde Weir; Clarissa Shaw; Cyn Flower; Avis Clark; Nicholas Torres; Mariel Campoverde; Phu Treadwell; Zach Wagoner; Dorita Albarado; Richard Wiggins; Liza Sutton; Feliberto Viera; Kingvineet Kun; Rene Dominguez; Wicho Devine; Gato Pena; Nadya Hoovre; Demetrius Amaral Discharge Orders/Prescriptions Prescriptions: New fluconazole 100 mg Tablet 200 mg PO DAILY 7 Days Qty: 14 0RF atorvastatin 80 mg Tablet 80 mg PO QHS 60 Days Qty: 60 0RF prednisone 20 mg Tablet 40 mg PO DAILYCM 5 Days Qty: 10 0RF hydralazine 50 mg Tablet 50 mg PO TID 60 Days Qty: 180 0RF Eliquis 5 mg Tablet 5 mg PO BID 60 Days Qty: 120 0RF furosemide [Lasix] 40 mg tablet 40 mg PO DAILY Qty: 60 0RF Continued mirtazapine 15 mg tablet 15 mg PO QHS nitroglycerin 0.4 mg tablet, sublingual 0.4 mg SUBLINGUAL Q5-15M PRN (Reason: CHEST PAIN) Qty: 25 3RF amlodipine 10 mg tablet 10 mg PO DAILY Qty: 30 11RF gabapentin 400 mg capsule 400 mg PO BID isosorbide mononitrate 30 mg tablet extended release 24 hr 30 mg PO DAILY omeprazole 40 mg capsule,delayed release(DR/EC) 40 mg PO DAILY buspirone 5 mg tablet 5 mg PO TID aspirin 81 mg Tablet,Chewable 81 mg PO BREAKFAST Qty: 0 0RF Hold Instructions: d/t bleed/anemia carvedilol 25 mg Tablet 25 mg PO BID 30 Days Qty: 60 0RF (DME) Oxygen 2 LPM on extertion See Rx Instructions .Route .MEDSUPPLY Qty: 1 0RF Patient Comments: 4l at hs Rx Instructions: As directed Trelegy Ellipta 200-62.5-25 mcg blister with device 1 inh inhalation DAILY Qty: 3 3RF Hold Instructions: cost Discontinued atorvastatin 10 MG tablet 10 mg PO DAILY Other Ambulatory Orders: Gastric Emptying Study (Routine) Facility: [facility] - Location: [facility] Ordered By: Dr. Spencer Franklin Referrals / Follow Up: Hitesh Castro DO [Med Staff - Active Staff] - Within 2 Weeks Christopher Cortez PA [Primary Care Provider] - In 1 Week Disposition Disposition (needs filled in before D/C Order can be placed): Home, Self Care Charges/Coding Visit Charges Inpatient E&M: 28412 Disch Hosp >30min
[2023-11-05] MEDS: Fluconazole 100 MG Tablet 200 MG PO (09:05)
[2023-11-05] MEDS: amLODIPine 10 MG Tablet PO (09:05)
[2023-11-05] MEDS: Carvedilol 25 MG Tablet PO (09:05)
[2023-11-05] MEDS: Isosorbide Mononitrate 30 MG Tablet PO (09:06)
[2023-11-05] MEDS: predniSONE 20 MG Tablet 40 MG PO (09:06)
[2023-11-05] MEDS: APIXABAN 5 MG TABLET PO (09:06)
[2023-11-05] MEDS: Furosemide 40 MG/4 ML Vial IV (09:07)
[2023-11-05] MEDS: Pantoprazole Sodium 40 MG Tablet PO (09:07)
[2023-11-05] MEDS: Gabapentin 400 MG Capsule PO (09:09)
--- NOTE | 2023-11-05 10:00 | CASEMGMT ---
CHRIST WALKER NOTE: Pt being discharged and Rx's for Eliquis along w/other new Rx's have been e-scribed to [facility] Retail pharmacy. CHRIST CM to room. Pt sitting up in chair in room. Pt made aware 30-day free trial offer for Eliquis will be applied by the retail pharmacy and the 30-day supply he will receive today will be free. Pt made aware to f/u with PCP if refills are not affordable. He voices understanding. He states he would like his meds delivered to his room. RNCassandra, made aware. He denies having other discharge planning needs or concerns. Yimi COLLIER RN CM
[2023-11-05 11:00] VITALS: O2SAT 90; O2SAT 95
== END 2023-11-05 11:45 | disposition home or self-care (01) | DRG 291 ==
LOC: ED 14:54 → PCU 18:26 → ICU 11-02 12:51
PROVIDERS: Internal Medicine Gastroenterology; Student in an Organized Health Care Education/Training Program; Admitting Provider Family Medicine; Emergency Provider Student in an Organized Health Care Education/Training Program; PCP Physician Assistant; Visit Provider Internal Medicine
PROC: 0DJ08ZZ Inspection of Upper Intestinal Tract, Via Natural or Artificial Opening Endoscopic (ICD-10-PCS; CPT 43235; principal; 2023-11-04 15:25)
DX: I13.0 Hypertensive heart and chronic kidney disease with heart failure and stage 1 through stage 4 chronic kidney disease, or unspecified chronic kidney disease (principal); I50.33 Acute on chronic diastolic (congestive) heart failure; J96.20 Acute and chronic respiratory failure, unspecified whether with hypoxia or hypercapnia; I63.9 Cerebral infarction, unspecified; B37.81 Candidal esophagitis; J44.1 Chronic obstructive pulmonary disease with (acute) exacerbation; N18.4 Chronic kidney disease, stage 4 (severe); I42.8 Other cardiomyopathies; I48.0 Paroxysmal atrial fibrillation; G62.9 Polyneuropathy, unspecified; J84.10 Pulmonary fibrosis, unspecified; F32.A Depression, unspecified; I65.23 Occlusion and stenosis of bilateral carotid arteries; D50.9 Iron deficiency anemia, unspecified; K21.9 Gastro-esophageal reflux disease without esophagitis; E78.5 Hyperlipidemia, unspecified; Z87.891 Personal history of nicotine dependence; Z79.51 Long term (current) use of inhaled steroids; Z95.810 Presence of automatic (implantable) cardiac defibrillator; Z79.82 Long term (current) use of aspirin; Z92.3 Personal history of irradiation; Z86.73 Personal history of transient ischemic attack (TIA), and cerebral infarction without residual deficits
CPT/HCPCS: 36415; 70450; 70496; 70498; 70551; 71045; 80048; 80053; 80061; 82962; 83036; 83735; 83880; 84100; 84145; 84443; 84484; 85025; 87070; 87205; 87631; 87633; 88305; 88312; 92526; 92610; 93005; 94640; 94762; 97116; 97162; 97164; 97166; 97168; 97803; 99285; 99406; J3101; J7120; Q9967; A4216; J1940

== ENCOUNTER → 2023-11-16 | Outpatient (CLI) | payer MEDICARE, SELFPAY ==
--- NOTE | 2023-11-16 11:31 | NM_ITS ---
CLINICAL: 73-year-old male with history of abdominal pain and chronic nausea. SEMI-SOLID PHASE 99m Tc SULFUR COLLOID GASTRIC EMPTYING STUDY COMPARISON: None available FINDINGS: The patient was administered 1.2 mCi of 99m Tc sulfur colloid mixed with oatmeal and consumed per os. Image acquisitions in the anterior-posterior projections were obtained for 60 minutes. There is prompt visualization of the stomach. There is no gastroesophageal reflux identified. The T ? raw data emptying was calculated to be 18.94 minutes, (Normal: 12-56 minutes). NM/Gastric Emptying Study IMPRESSION: 1. NORMAL 99m Tc sulfur colloid semi-solid phase (oatmeal) gastric emptying imaging examination. A. There is normal and preserved semi-solid phase gastric emptying compared to normal controls. (Kel et al, J Nucl Med Tech 38: 186, 2010). Electronically Signed: Salty Guzman DO at 8:27 EST ,
== END | disposition home or self-care (01) ==
PROVIDERS: PCP Physician Assistant; Referring Provider Internal Medicine; Visit Provider Internal Medicine
DX: K31.84 Gastroparesis (principal)
CPT/HCPCS: 78264; A9541